=== PATIENT | male | born 1945 | race Caucasian/White ===

== ENCOUNTER 2017-09-14 21:48 | Emergency (ER) | payer MEDICARE, OTHER, SELFPAY ==
[2017-09-14 21:49] VITALS: BP 129/91; PULSE 72; RESP 15; TEMP 36.6; BMI 38.7
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
[2017-09-14 23:05] VITALS: BP 141/84; PULSE 71; RESP 18; O2SAT 95
== END 2017-09-14 23:05 | disposition home or self-care (01) ==
PROVIDERS: Emergency Provider Emergency Medicine; Family Provider Family Medicine; PCP Family Medicine
DX: S63.501A Unspecified sprain of right wrist, initial encounter (principal); V49.40XA Driver injured in collision with unspecified motor vehicles in traffic accident, initial encounter; Y93.9 Activity, unspecified; Y92.411 Interstate highway as the place of occurrence of the external cause; Y99.9 Unspecified external cause status; E11.9 Type 2 diabetes mellitus without complications; I10 Essential (primary) hypertension; Z79.84 Long term (current) use of oral hypoglycemic drugs; Z79.899 Other long term (current) drug therapy; Z87.891 Personal history of nicotine dependence
CPT/HCPCS: 73110; 99282

== ENCOUNTER 2018-07-21 18:45 | Emergency (ER) | payer MEDICARE, SELFPAY ==
[2018-07-21 18:46] VITALS: BP 135/71; PULSE 75; RESP 16; TEMP 36.7; BMI 37.6
--- NOTE | 2018-07-21 19:12 | RAD_ITS ---
STUDY: X-RAY - LEFT TIBIA AND FIBULA REASON FOR EXAM: Male, 73 years old. Pain and swelling TECHNIQUE: 2 view(s) of the tibia and fibula were obtained. COMPARISON: None. FINDINGS: There is no evidence of fracture or dislocation. There are no significant degenerative changes. There are no radiodense foreign bodies. RAD/Tibia & Fibula 2 Views IMPRESSION: No fracture or dislocation. Electronically Signed: Joseph Mansfield, at 20:23 EDT Tel , Service support ,
--- NOTE | 2018-07-21 19:13 | RAD_ITS ---
STUDY: X-RAY - LEFT KNEE REASON FOR EXAM: Male, 73 years old. Leg pain TECHNIQUE: 4 view(s) of the knee. COMPARISON: None. FINDINGS: There is no evidence of fracture or dislocation. There are no significant degenerative changes. There are no radiodense foreign bodies. There is a small joint effusion. RAD/Knee 4 or More Views IMPRESSION: No fracture or dislocation. Small joint effusion. Electronically Signed: Joseph Mansfield, at 20:19 EDT Tel , Service support ,
--- NOTE | 2018-07-21 19:20 | US_ITS ---
STUDY: VENOUS DOPPLER ULTRASOUND - LEFT LOWER EXTREMITY REASON FOR EXAM: Male, 73 years old. Pain TECHNIQUE: Ultrasound evaluation of the deep vein system to include whitmore-scale imaging and compression was performed. Whitmore-scale imaging and Doppler sonographic evaluation, including duplex spectral analysis and qualitative color flow sonography, was performed. COMPARISON: None. FINDINGS: Common Femoral Vein: Normal compression, spontaneity and augmentation. Normal color Doppler. Common Femoral Vein/Greater Saphenous Junction: Normal compression, spontaneity and augmentation. Normal color Doppler. Femoral Proximal: Normal compression, spontaneity and augmentation. Normal color Doppler. Femoral Middle: Normal compression, spontaneity and augmentation. Normal color Doppler. Femoral Distal: Normal compression, spontaneity and augmentation. Normal color Doppler. Popliteal Vein: Normal compression, spontaneity and augmentation. Normal color Doppler. Posterior Tibial Vein: Normal compression, spontaneity and augmentation. Normal color Doppler. Peroneal Vein: Normal compression, spontaneity and augmentation. Normal color Doppler. US/Venous Duplex Imag/Limited/Uni IMPRESSION: Normal venous Doppler ultrasound of the left lower extremity. Electronically Signed: Joseph Mansfield, at 20:46 EDT Tel , Service support ,
[2018-07-21] MEDS: oxyCODONE 5 MG Tablet PO ×2 (19:40→21:17)
--- NOTE | 2018-07-21 21:29 | ED.VISSUMM ---
- ER Visit Summary Date of Service: 07/21/18 Chief Complaint: Left knee pain History of Present Illness: The patient is a 73 M with a 4-6-week history of left knee pain. He was seen by his primary care physician and x-rays showed arthritis. He has been in physical therapy. He states that while in physical therapy immediately after it seems to feel better, but still stiffens up and he has difficulty walking. He was going up some steps today and felt a pop in the lateral portion of his knee. He now states he is unable to bear weight. He is taking Motrin at home for pain. Past history significant for diabetes with neuropathy. He also has hypertension, high cholesterol, and reflux disease. He had surgery for spinal stenosis several years ago. Physical Examination: Vital signs are unremarkable. Patient sitting upright in bed no acute distress. Head neck examination unremarkable. Heart is regular rate and rhythm. Lung sounds clear. Abdomen is soft nontender. Left lower extremity examination was mild tenderness in the proximal portion of the left fibula and the distal tib-fib. He has mild left leg edema diffusely. He has strong distal pulses. He is able to straight leg raise his foot off the bed. Test Results: Left knee and left tib-fib x-rays are obtained that show no evidence of fracture or dislocation. There is a small joint effusion noted at the knee. Venous ultrasound of the leg shows no DVT. Emergency Department Course and Treatment: Patient is treated with oxycodone for pain. Patient is able to get up and ambulate with a walker. I will touch base with on-call coverage for his primary care physician. Patient is scheduled to see the nurse practitioner tomorrow morning. Treatment Plan: [] Disposition: Discharge Impression: Left leg pain This note was generated with [employer] dictation software. It may contain incorrect words, spelling, and punctuation that were not noted in review of the chart prior to signing ED Disposition - Plan for ED Patient: Referrals: Yosef Rodas MD [Primary Care Provider] -
--- NOTE | 2018-07-21 22:17 | ED.DEP ---
ED Disposition - Plan for ED Patient: Disposition: Home or Assisted Living Instructions: ED Knee Pain [facility] Prescriptions: Oxycodone [Oxyir] 5 mg PO Q6H PRN PRN 3 Days #10 tablet PRN Reason: Pain Referrals: Yosef Rodas MD [Primary Care Provider] - Keep [facility] appointment
--- NOTE | 2018-07-21 22:26 | ED.DEP ---
ED Disposition - Plan for ED Patient: Disposition: Home or Assisted Living Instructions: ED Knee Pain [facility] Prescriptions: Oxycodone [Oxyir] 5 mg PO Q6H PRN PRN 3 Days #10 tablet PRN Reason: Pain Walker [Ultra-Light Rollator] 1 each MC DAILY #1 each Referrals: Yosef Rodas MD [Primary Care Provider] - Keep [facility] appointment
[2018-07-21 22:44] VITALS: PULSE 76; RESP 18; O2SAT 92
== END 2018-07-21 22:45 | disposition home or self-care (01) ==
PROVIDERS: Emergency Provider Emergency Medicine; Family Provider Family Medicine; PCP Family Medicine
DX: M79.605 Pain in left leg (principal); R26.2 Difficulty in walking, not elsewhere classified; E11.40 Type 2 diabetes mellitus with diabetic neuropathy, unspecified; I10 Essential (primary) hypertension; E78.00 Pure hypercholesterolemia, unspecified; K21.9 Gastro-esophageal reflux disease without esophagitis; Z79.84 Long term (current) use of oral hypoglycemic drugs; Z79.82 Long term (current) use of aspirin; Z79.899 Other long term (current) drug therapy; Z87.891 Personal history of nicotine dependence
CPT/HCPCS: 73564; 73590; 93971; 99282

== ENCOUNTER → 2018-08-16 08:42 | Outpatient (CLI) | payer MEDICARE, SELFPAY ==
[2018-07-30 15:28] VITALS: BMI 37.6
--- NOTE | 2018-08-16 08:45 | MRI_ITS ---
STUDY: MRI LEFT KNEE REASON FOR EXAM: Male, 73 years old. Left knee pain TECHNIQUE: Standardized fat and water weighted pulse sequences were obtained in all 3 orthogonal planes. COMPARISON: X-ray July 21, 2018. FINDINGS: There is medial meniscus tear of the posterior horn adjacent to the meniscal root, series 6 image 03/21. There is diffuse, less than 50% thickness articular cartilage loss of the medial femorotibial compartment. Normal medial femoral condyle and tibial plateau. Normal medial collateral ligamentous complex (MCL). Normal distal semimembranosus, gracilis and semitendinosus tendons. Normal lateral meniscus. Normal hyaline cartilage of the lateral femorotibial compartment. Normal lateral femoral condyle and tibial plateau. Normal proximal tibiofibular articulation. Normal lateral collateral (fibular) ligament. Normal popliteus tendon. Normal biceps femoris tendon. Normal anterior cruciate ligament (ACL). Normal posterior cruciate ligament (PCL). Normal congruent patellofemoral articulation. There is diffuse, less than 50% thickness articular cartilage loss of the patellofemoral compartment. Normal medial and lateral patellar retinaculum. Normal quadriceps tendon. Normal patellar tendon. Normal Hoffa's fat pad. There is a moderate volume joint effusion. The soft tissues are unremarkable. The otherwise visualized osseous structures are unremarkable. MRI/Lower Ext Joint Only (Routine) IMPRESSION: Medial meniscus tear. Joint effusion. Electronically Signed: Tommy Vega MD at 9:18 EDT , Service support ,
== END ==
PROVIDERS: Family Provider Family Medicine; PCP Family Medicine; Referring Provider Orthopaedic Surgery; Visit Provider Orthopaedic Surgery
DX: M25.562 Pain in left knee (principal)
CPT/HCPCS: 73721

== ENCOUNTER 2018-09-02 07:51 | Day surgery (SDC) | payer MEDICARE, SELFPAY ==
--- NOTE | 2018-08-20 02:00 | HP_ITS ---
Intake Vital Signs 08/20/18 Body Mass Index (BMI) 37.6 Intake Visit Reasons: LEFT KNEE Allergies lisinopril Allergy (Verified 09/14/17 21:53) Shortness of breath Penicillins [PCN] Allergy (Verified 09/14/17 21:53) Unknown Medications Gabapentin [Neurontin] 1,200 mg PO TID 09/14/17 [History Confirmed 07/21/18] Gabapentin [Neurontin] 100 mg PO TID 09/14/17 [History Confirmed 07/21/18] Hydrochlorothiazide [Hctz] 25 mg PO DAILY 09/14/17 [History Confirmed 07/21/18] Losartan Potassium 50 mg PO DAILY 09/14/17 [History Confirmed 07/21/18] Metformin HCl [Glucophage] 1,000 mg PO BID 09/14/17 [History Confirmed 07/21/18] Oxybutynin [Ditropan] 5 mg PO DAILY 09/14/17 [History Confirmed 07/21/18] Ranitidine [Zantac] 150 mg PO DAILY 09/14/17 [History Confirmed 07/21/18] Simvastatin [Zocor] 10 mg PO QHS 09/14/17 [History Confirmed 07/21/18] Aspirin [Aspirin, Baby] 81 mg PO DAILY 07/21/18 [History Confirmed 07/21/18] Cyanocobalamin (Vitamin B-12) [B-12] 1,000 mcg PO DAILY 07/21/18 [History Confirmed 07/21/18] Walker [Ultra-Light Rollator] 1 ea MC DAILY #1 ea 07/21/18 [Rx] PFSH Medical History Neuropathy (Acute) Diabetes mellitus (Chronic) HTN (hypertension) (Chronic) Social History Smoking Status: Former smoker HPI LEFT KNEE : Surgical H&P: Yes Details: Parts of this documentation were recorded by a scribe, this documentation accurately reflects the service provided and the decisions made by , Bharath Hines DO 08/20/18 0805. ESSIE LOCK is a 73 year old M here today for left knee injury that occurred 2 weeks ago while getting in a car. Patient here today for F/U after MRI. his symptoms have not changed. Ortho Exam Left Knee Skin/Wound: No ecchymosis, No erythema, Yes swelling Homans Sign: No KNEE: Skin/Wound: No ecchymosis, No erythema, Yes swelling Homans Sign: No 3+: Effusion Knee ROM: No ROM-Extension -20 to 0 (lacking 3), No ROM-Flexion 0-140 (105) Examination: Yes med jt line tenderness, Yes Lat jt line tenderness (posterior/lateral), Yes Mohit's Test Stability: NML: Anterior Drawer, NML: Posterior Drawer, NML: Valgus 30, NML: Varus 30 Patella Translation: 1 Apprehension with Lateral Translation: No Patella Grind: Yes KNEE: BL lower extremity edema worse on left Supplemental Info 08/16/2018 MRI left knee: Posterior horn and root medial meniscus tear cartilage wear medial compartment and patellofemoral Assessment & Plan Problems 1. Complex tear of medial meniscus of left knee as current injury, subsequent encounter S89.390W 2. Primary osteoarthritis of left knee M17.12 Plan Reviewed patient left knee MRI. Educated the he has a medial meniscus tear and does have some moderate OA. Recommendation is to have an arthroscopy to remove the meniscus that is torn. Patient made aware that this surgery may cause a flare up of his OA. Reviewed the pre-operative plans with the patient. Risks and benefits of the procedure were fully explained, including but not limited to infection, neurovascular injury, continued pain, arthritis, stiffness, need for further surgery, re-injury, DVT, PE, general risks of anesthesia, and loss of limb or life. The patient understands all the risks. Patient educated that the risk of arthritis happening after the procedure rises. Patient made aware that the recovery may take 6 weeks or longer. Patient may ambulate on his knee immediately. Patient instructed that he may ride a bike but will have to refrain from ambulating on uneven ground for 6 weeks post-op. Educated that diabetes may increase risk of infection which is a low risk. Instructed to take Aspirin 81mg BID for 2 weeks post-op to decrease risk of blood clots. Patient wishes to proceed with surgery. Follow up 2 weeks post-op or sooner if pain, swelling, numbness or associated symptoms, or concerns develop. All questions answered. Patient in agreement of plan. Coding Level of Care Code Off vis,est,level 3 Diagnoses Complex tear of medial meniscus of left knee as current injury, subsequent encounter S82.325M ??Tear current or old: current ??Encounter type: subsequent encounter ??Meniscus tear of knee type: complex Primary osteoarthritis of left knee M17.12 ??Osteoarthritis type: primary ??Laterality: left 08/20/18 1522 <Electronically signed by Bharath Hines DO> Date Bharath Hines DO
[2018-08-20 08:05] VITALS: BMI 37.6
[2018-09-02] VITALS (8 sets, daily range): BP systolic 116–127; BP diastolic 60–90; PULSE 66–79; RESP 16–18; TEMP 36.2–36.9; O2SAT 92–93; BMI 38.9
[2018-09-02 09:01] LABS: Bedside Glucose 130 mg/dL (70-110)
[2018-09-02] MEDS: Cefazolin 2 GM in 0.9% Normal Saline 100 ML IV (10:40)
[2018-09-02] MEDS: Bupiv/Epi 0.5% Mpf 30 ML Vial (11:15)
[2018-09-02] MEDS: Morphine 4 MG/ML Syringe (11:30)
[2018-09-02] MEDS: Bupivacaine 0.5% PF 10 ML VIAL (11:30)
[2018-09-02] MEDS: MethylPREDNISolone Acetate 80 MG/ML Vial (11:30)
--- NOTE | 2018-09-02 11:50 | DCINST_ITS ---
Additional Activity Instructions:: Ice and elevate next 72 hours .keep dressing on clean and dry for 48 hours then may remove begin showering daily but do not submerge in tub or pool. After shower may apply Band-Aids . Encourage knee range of motion weightbearing as tolerated, use walker until confident in knee then may discontinue. No strenuous activity. When not ambulating keep iced and elevated next 72 hours. Allergies/Adverse Reactions: Allergies lisinopril Allergy (Verified 09/14/17 21:53) Shortness of breath Penicillins [PCN] Allergy (Verified 09/14/17 21:53) Unknown Medications to take at Discharge Gabapentin [Neurontin] 100 mg PO TID 09/14/17 Gabapentin [Neurontin] 800 mg PO TID 09/14/17 Hydrochlorothiazide [Hctz] 25 mg PO DAILY 09/14/17 Losartan Potassium 50 mg PO DAILY 09/14/17 Metformin HCl [Glucophage] 1,000 mg PO BID 09/14/17 Oxybutynin [Ditropan] 5 mg PO DAILY 09/14/17 Ranitidine [Zantac] 150 mg PO DAILY 09/14/17 Simvastatin [Zocor] 10 mg PO QHS 09/14/17 Cyanocobalamin (Vitamin B-12) [B-12] 1,000 mcg PO DAILY 07/21/18 Walker [Ultra-Light Rollator] 1 each MC DAILY #1 each 07/21/18 Aspirin [Aspirin, Baby] 81 mg PO DAILY #0 09/02/18 Hydrocodone Bitart/Apap 5-325 [[place] 5MG-325MG] 1 - 2 tablet PO Q4H PRN PRN 5 Days #50 tablet 09/02/18 The following prescriptions were given: Hydrocodone Bitart/Apap 5-325 [[place] 5MG-325MG] 1 - 2 tablet PO Q4H PRN PRN 5 Days #50 tablet PRN Reason: Pain Primary Care Physician: Yosef Rodas MD [Primary Care Provider] - Test Results: Test results from this visit will be discussed in further detail at your follow- up appointment, if applicable.
--- NOTE | 2018-09-02 11:57 | OP.PCM_ITS ---
Report of Operation Date of Procedure: 09/02/18 Description of Surgical Findings:: Preop diagnosis: Left knee medial meniscus tear DJD Postoperative diagnosis: Posterior horn medial meniscus tear small radial tearing of lateral meniscal body grade III chondromalacia medial femoral condyle medial tibial plateau and patella loose body Procedure: Arthroscopic left knee partial medial meniscectomy arthroplasty medial femoral condyle loose body removal partial lateral meniscectomy Anesthesia: General Estimated blood loss: 5 mL Tourniquet time: minutes 300 mmHg Complications: none Indication for procedure: This is a 73-year-old male patient with ongoing knee pain mechanical symptoms who did have MRI evidence of meniscal tear and DJD the patient did wish to proceed with an elective arthroscopic surgery to attempt to alleviate the symptoms. Risk benefits and alternatives of the procedure were reviewed including risk of bleeding infection nerve artery tissue damage need for further surgery continued pain and expected postoperative course. Procedure: The patient was met in the preoperative holding area. The operative extremity was identified by both patient and physician and family and marked. Patient was brought back to the operating room on a wheeled cart and transferred to the operating table in the supine position. Anesthesia was started. A well- padded tourniquet was placed on the operative extremity. A lower extremity leg lambert was secured to the operative extremity. The contralateral extremity was well-padded and the end of the bed was flexed to 90 degrees. The patient was prepped and draped in the usual sterile fashion. A timeout was called to ensure the proper patient, procedure, and extremity were being contemplated. 0.5% Marcaine with epinephrine was injected into the planned incisional areas under the skin only. An Esmarch was used to exsanguinate the extremity and the tourniquet was inflated. An 11 blade scalpel was used to make a stab incision in the anterior lateral portal. The arthroscope was inserted into the intercondylar notch and inflow and outflow tubes were attached. Arthroscopic visualization began. The medial compartment was entered. An 18-gauge spinal needle was used to establish the placement for anterior medial portal. An 11 blade scalpel was used to make a stab incision. Blunt probe was inserted followed by a meniscal probe. There was noted to be a posterior horn medial meniscus tear with the use of shaver and arthroscopic biting instruments partial medial meniscectomy was performed also loose cartilage of the medial femoral condyle which was debrided and gentle chondroplasty was performed there was greater than 50% cartilage wear throughout most of the medial compartment but no full-thickness loss the ACL was found to be intact. The lateral compartment was entered there was some radial tearing of the body of the lateral meniscus which was debrided with a shaver but overall the cartilage was intact . The arthroscope was switched to the medial portal to complete the procedure. The medial and lateral gutters were inspected and was loose bodies mostly from cartilage debris which were removed. 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 There was good patellar tracking. The knee was thoroughly irrigated and drained. An intra-articular injection with 5 cc 0.5% Marcaine plain 4 mg of morphine and 40 mg of Depo- Medrol was injected intra-articularly. The arthroscope was removed the portals were closed with 3-0 nylon arthroscopic stitches. Followed by Xeroform 4 x 4's ABDs web roll and an Andi wrap. The tourniquet was let down and the drapes were removed. All counts were correct. The patient was brought back to the PACU in stable condition.
[2018-09-02 12:05] LABS: Bedside Glucose 118 mg/dL (70-110)
== END 2018-09-02 13:45 | disposition home or self-care (01) ==
LOC: SDC 08:08 → AC 08:09
PROVIDERS: Family Provider Family Medicine; PCP Family Medicine; Referring Provider Orthopaedic Surgery; Visit Provider Orthopaedic Surgery
PROC: (CPT 29870; principal; 2018-09-02 09:15)
DX: S83.232A Complex tear of medial meniscus, current injury, left knee, initial encounter (principal); S83.282A Other tear of lateral meniscus, current injury, left knee, initial encounter; X58.XXXA Exposure to other specified factors, initial encounter; Y93.9 Activity, unspecified; Y92.9 Unspecified place or not applicable; Y99.9 Unspecified external cause status; M17.12 Unilateral primary osteoarthritis, left knee; E11.40 Type 2 diabetes mellitus with diabetic neuropathy, unspecified; E78.00 Pure hypercholesterolemia, unspecified; I10 Essential (primary) hypertension; K22.2 Esophageal obstruction; Z79.82 Long term (current) use of aspirin; Z79.84 Long term (current) use of oral hypoglycemic drugs; Z79.899 Other long term (current) drug therapy; Z88.8 Allergy status to other drugs, medicaments and biological substances; Z88.0 Allergy status to penicillin; Z87.891 Personal history of nicotine dependence
CPT/HCPCS: 01400; 29880; 82962; J7120; J2405

== ENCOUNTER 2023-04-10 10:53 | Inpatient (IN) | payer MEDICARE, SELFPAY ==
[2023-04-10] VITALS (14 sets, daily range): BP systolic 104–178; BP diastolic 68–98; PULSE 62–98; RESP 14–20; TEMP 36.6–36.7; O2SAT 93–98; BMI 34.4; BMI 36.3; BMI 35.3
--- NOTE | 2023-04-10 11:02 | ED.RN ---
SPOKE WITH DR. STUART REGARDING THIS PT, DR STUART WILL ASSESS.
--- NOTE | 2023-04-10 11:10 | NURSING ---
STROKE ALERT CALLED
--- NOTE | 2023-04-10 11:15 | CT_ITS ---
STUDY: CTA HEAD AND NECK WITH CONTRAST REASON FOR EXAM: Male, 77 years old. Neuro deficit, acute, stroke suspected RADIATION DOSAGE (If Supplied By Facility): CTDIvol = ( 20.41 ) mGy, DLP = ( 763.15 ) mGycm TECHNIQUE: CT angiography was performed with a multi-detector CT scanner. Data acquisition was obtained from the skull base through the vertex following intravenous administration of [id number] 100ML. MIP images were reconstructed from the axial data set. Post-processing of the angiographic images was performed, with multiplanar reformation and 3D reconstruction. Individualized dose optimization techniques were used for this CT. COMPARISON: No relevant priors. FINDINGS: Normal bilateral petrous carotid arteries. Normal right cavernous carotid artery with a normal supraclinoid bifurcation. Normal left cavernous carotid artery with a normal supraclinoid bifurcation. Normal right A1 segments of the anterior cerebral artery. Normal left A1 segments of the anterior cerebral artery. Normal intact anterior communicating artery (ACOM). Normal bilateral A2 segments of the anterior cerebral arteries. Normal right M1 and M2 segments of the middle cerebral arteries, with a normal M1 bifurcation. Normal left M1 and M2 segments of the middle cerebral arteries, with a normal M1 bifurcation. Normal right posterior communicating artery (PCOM). Normal left posterior communicating artery (PCOM). Normal bilateral vertebral arteries. Normal basilar artery with a normal basilar bifurcation. The visualized bilateral superior cerebellar (SCA) arteries are normal. Normal bilateral P1, P2 and visualized P3 segments of the posterior cerebral arteries. There is no demonstrated aneurysm of the [place] of [place]. AORTIC ARCH: There is atherosclerotic calcific plaque formation of the aortic arch and great vessels arising from the aortic arch, without a hemodynamically significant stenosis. There is a normal origin of the brachiocephalic, left common carotid, and left subclavian arteries. Normal origins of the brachiocephalic, left common carotid, and left subclavian arteries. RIGHT CAROTID ARTERIES: Normal right common carotid artery (CCA). Normal right common carotid bulb. Normal origin of the right internal carotid (ICA) artery without a hemodynamically significant stenosis. Normal visualized cervical portion of the right internal carotid artery. Normal origin of the right external carotid artery (ECA). LEFT CAROTID ARTERIES: Normal left common carotid artery (CCA). Normal left common carotid bulb. Normal origin of the left internal carotid (ICA) artery without a hemodynamically significant stenosis. Normal visualized cervical portion of the left internal carotid artery. Normal origin of the left external carotid artery (ECA). VERTEBRAL ARTERIES: Normal bilateral vertebral arteries. CT/STROKE CTA Head AND Neck W/Con IMPRESSION: Normal CTA Head and neck with contrast. N.B. : The above Results were Read Back by Babar Oliva MD to Dr Cesario DO, and understanding confirmed on 04/10/2023 11:59:14 (ET). Electronically Signed: Babar Oliva MD at 12:00 EST ,
--- NOTE | 2023-04-10 11:15 | CT_ITS ---
STUDY: CT HEAD STROKE PROTOCOL W/O CONTRAST INJECTION REASON FOR EXAM: Male, 77 years old. Neuro deficit, acute, stroke suspected RADIATION DOSAGE (If Supplied By Facility): CTDIvol = ( 44.99 ) mGy, DLP = ( 863.6 ) mGycm TECHNIQUE: Transaxial CT imaging of the brain was performed without administration of intravenous contrast material. Individualized dose optimization techniques were used for this CT. COMPARISON: No relevant priors. FINDINGS: Normal soft tissue structures. Normal calvarium. There is mild cerebral atrophy with widening of the extra-axial spaces and ventricular dilatation. There are areas of decreased attenuation within the white matter tracts of the supratentorial brain, consistent with microvascular disease changes. Normal basal ganglia and thalami. Normal brainstem. Normal cerebellum. There is no intracranial hemorrhage. There are no findings of an acute ischemic infarction. Normal visualized paranasal sinuses. ASPECT score: 10 CT/STROKE Brain/Head without Cont IMPRESSION: Chronic involutional changes of the brain. N.B. : The above Results were Read Back by Babar Oliva MD to Dr Cesario DO, and understanding confirmed on 04/10/2023 11:29:33 (ET). Electronically Signed: Babar Oliva MD at 11:30 EST ,
--- NOTE | 2023-04-10 11:15 | EKG12_ITS ---
Test Reason : STROKE Blood Pressure : / mmHG Vent. Rate : 065 BPM Atrial Rate : 065 BPM P-R Int : 200 ms QRS Dur : 072 ms QT Int : 414 ms P-R-T Axes : 074 -02 035 degrees QTc Int : 430 ms Normal sinus rhythm Normal ECG Confirmed by TIN FERRER, CURTIS ([id number]), assistant production editor TONYA MONTENEGRO ([id number]) on 04/11/2023 10:41:32 AM Referred By: Confirmed By:CURTIS CASTLE MD
[2023-04-10 11:30] LABS: Bedside Glucose 99 mg/dL (74-106)
[2023-04-10 11:33] LABS: Absolute Lymphocyte Count 1.58 X10^3/uL (0.83-4.51); Basophil# 0.03 X10^3/uL; Basophil% 0.4 % (0-1); Eosinophil# 0.49 X10^3/uL; Eosinophils% 6.5 % (0-5); Hematocrit 39.1 % (40-54); Lymphocyte # 1.58 X10^3/ul (0.83-4.51); Lymphocyte % 20.9 % (19-41); Mean Corp Hgb Conc 30.7 g/dL (32-36); Mean Corpuscular Hgb 29.1 pg (27.0-32.0); Mean Corpuscular Volume 94.9 fL (80-94); Mean Platelet Vol. 9.9 fl (6.2-12.0); Monocyte# 0.47 X10^3/uL; Monocyte% 6.2 % (0-10); NRBC Flagged by Analyzer 0 % (0-5); Neutrophil # 4.96 X10^3/uL (2.7-7.7); Neutrophil % 65.6 % (47-70); Platelet Count 239 K/mm3 (150-450); RBC Distribution Width CV 14.3 % (11.6-14.6); RBC Distribution Width SD 49.5 fl (35.1-43.9); Red Blood Count 4.12 M/mm3 (4.6-6.2); White Blood Count 7.6 K/mm3 (4.4-11.0)
[2023-04-10 11:36] LABS: Prothrombin Time (Protime)PT. 13.5 SECONDS (11.7-14.9)
[2023-04-10 11:45] LABS: Anion Gap 3 (5-15); BUN 36 mg/dL (7-18); BUN/Creat Ratio 25.2 RATIO (10-20); Calcium,Total 9.2 mg/dL (8.5-10.1); Chloride 109 mmol/L (98-107); Creatinine, Serum 1.43 mg/dL (0.70-1.30); EST Glomerular Filtration Rate 51 mL/min (>60); Est Glom Filt Rate - Afr Amer 62 mL/min (>60); Estimated Creatinine Clearance 40.45 ml/min; Glucose 107 mg/dL (74-106); Potassium 4.7 mmol/L (3.5-5.1); Sodium Level 141 mmol/L (136-145); Troponin-I HS 5 pg/mL (3.0-78.0)
--- NOTE | 2023-04-10 11:52 | CHAPLAIN ---
Type of Pastoral Visit ___ Initial Visit ___ Follow-up Visit ___ On-call Visit ___ General Patient Visit ___ Spiritual Assessment ___ Family Conference ___ Bereavement _x__ Rapid Response ___ Code Blue ___ Other (describe below) Pastoral Care Referral From ___ Patient ___ Family ___ Nurse ___ Physician ___ On Air Host ___ Restaurant Inspector _x__ Other (describe below) Sacrament/Intervention _x__ Active listening ___ Anointing ___ Restorationist ___ Bereavement ___ Communion ___ Edita exploration ___ ___ Life review ___ Prayer ___ Reconciliation ___ Sacrament of Sick _x__ Supportive presence ___ Wedding ___ Other (describe below) Pastoral Comments responded to stroke alert; pt is being attended by medical team and prepared for CT; pt is alert and oriented; offer of support and presence to patient and spouse; spouse indicates that she is doing fine; no current needs
--- NOTE | 2023-04-10 12:00 | RAD_ITS ---
STUDY: X-RAY CHEST REASON FOR EXAM: Male, 77 years old. Neuro deficit, acute, stroke suspected TECHNIQUE: Single AP portable view of the chest. COMPARISON: None. FINDINGS: EKG electrodes are seen. The lungs are clear and expanded. Calcified granulomas. There is no demonstrated pleural abnormality. Normal size heart. Normal mediastinum and nicky. Normal visualized pulmonary arteries. Normal visualized aortic arch and descending thoracic aorta. There are diffuse degenerative changes of the visualized thoracic spine. Normal visualized ribs, clavicles, and shoulders. There is no demonstrated abnormality of the visualized soft tissue structures of the upper abdomen. RAD/Chest 1 View IMPRESSION: Normal x-ray examination of the chest. Electronically Signed: Babar Oliva MD at 12:24 EST ,
--- NOTE | 2023-04-10 12:11 | ED.RN ---
SLIGHT DYSARTHRIA NOTED, IMPROVED WITH REINSERTION OF DENTURES. PT LEFT LEG WEAKER THAN RIGHT, NO ACTUAL SIGNIFICANT DRIFT OBSERVED. PT HAS DIFFICULTY LIFTING BOTH LEGS DUE TO SPINAL SURGERY IN JUNE 2022
--- NOTE | 2023-04-10 12:16 | EX.ED.DYSGE1 ---
HPI History of Present Illness Chief Complaint: Neuro S/Sx Informant: patient and spouse/S.O. Narrative Narrative: 77-year-old male states that at 2200 hrs. last night he went to get out of his chair. He felt both of his legs were weak. He was able to ambulate with some assistance and a walker to the bedroom. He states that during the night he had difficulty trying to get a bottle of water with his left hand. He states he kept missing it and the hand was weak. This morning he noted that the left leg was weak not the right leg. He also states that when he went to feel the left side of his face he missed his face and hit his head with his left hand. He then noticed that the left side of his face was not feeling the same as the right side. Now he notes some left-sided facial droop. Patient takes a baby aspirin. He is a diabetic with a history of hypercholesterolemia hypertension and GERD. [facility] Medical History Diabetes mellitus GERD (gastroesophageal reflux disease) HTN (hypertension) Hyperlipidemia Neuropathy Sleep apnea Home Medications gabapentin 100 mg capsule 100 mg PO TID NERVE PAIN 09/14/17 [History Last Taken 04/10/23] gabapentin 400 mg capsule 800 mg PO TID NERVE PAIN 09/14/17 [History Last Taken 04/10/23] losartan 50 mg tablet 50 mg PO DAILY BLOOD PRESSURE 09/14/17 [History Last Taken 04/10/23] metformin 1,000 mg tablet 1,000 mg PO BID DIABETES 09/14/17 [History Last Taken 04/10/23] simvastatin 10 mg tablet 10 mg PO QHS CHOLESTEROL 09/14/17 [History Last Taken 04/09/23] cyanocobalamin (vitamin B-12) 1,000 mcg tablet 1,000 mcg PO DAILY SUPPLEMENT 07/21/18 [History Last Taken 04/10/23] walker #1 ea 07/21/18 [Rx Last Taken Unknown] ascorbic acid (vitamin C) 1,000 mg tablet 1 g PO DAILY SUPPLEMENT 04/10/23 [History Last Taken 04/10/23] aspirin 81 mg chewable tablet 81 mg PO DAILY HEART HEALTH 04/10/23 [History Last Taken 04/10/23] diclofenac sodium 75 mg tablet,delayed release 75 mg PO BID ANTI-INFLAMMATORY 04/10/23 [History Last Taken 04/10/23] omeprazole 40 mg capsule,delayed release 40 mg PO DAILY ACID REFLUX 04/10/23 [History Last Taken 04/10/23] oxybutynin chloride 10 mg tablet,extended release 24 hr 10 mg PO DAILY OVERACTIVE BLADDER 04/10/23 [History Last Taken 04/10/23] Allergy/AdvReac Type Severity Reaction Status Date / Time lisinopril Allergy Shortness Verified 10/20/18 10:45 of breath Penicillins [PCN] Allergy Unknown Verified 10/20/18 10:45 Social History Smoking Status: Former smoker ROS ROS ED Constitutional Constitutional ED: Denies chills, fever(s) or weight loss Eyes Eyes: Denies change in vision or diplopia ENT ENT ED: Denies ear pain, rhinorrhea or sore throat Cardiovascular Cardiovascular: Denies chest pain, orthopnea, palpitations or racing heartbeat Respiratory/Chest Respiratory/Chest: Denies cough, dyspnea or orthopnea Gastrointestinal Gastrointestinal: Denies abdominal pain, diarrhea, nausea or vomiting Genitourinary Genitourinary ED: Denies dysuria, hematuria or urinary frequency Musculoskeletal Musculoskeletal: Reports back pain; Denies arthralgias or myalgias Integumentary Denies abscess or rash Neurologic Neurologic: Reports paresthesias and weakness; Denies headache(s) Psychiatric Psychiatric: Denies anxiety, depression, suicidal ideation or suicidal thoughts Endocrine Endocrinology: Denies polydipsia, polyphagia or polyuria Allergic/Immunologic Allergic/Immunologic ED: Denies mouth swelling, tongue swelling or urticaria EXAM Physical Exam Const Vital Signs: 04/10/23 10:56 04/10/23 11:11 04/10/23 11:30 Temperature 98.1 F 98.1 F Temperature Source Temporal Temporal Pulse Rate 98 77 67 Respiratory Rate 14 17 15 Blood Pressure 154/75 H 168/83 H 178/71 H Blood Pressure Mean 101 111 106 Pulse Ox 98 95 96 Oxygen Delivery Method Room Air Room Air 04/10/23 12:00 Temperature Temperature Source Pulse Rate 64 Respiratory Rate 17 Blood Pressure 154/70 H Blood Pressure Mean 98 Pulse Ox 97 Oxygen Delivery Method Room Air Positive well nourished, well developed and obese General Appearance ED: well developed Nutritional Appearance: obese HEENT Reports normocephalic, head/scalp atraumatic and moist mucous membranes Eyes PERRL and EOMs intact bilaterally Neck no lymphadenopathy, supple and no JVD Resp normal respiratory effort and clear to auscultation bilaterally Cardio regular rate, regular rhythm and no murmurs GI normal to inspection, nondistended, normoactive bowel sounds and non-tender Palpation: soft Back/Spine no CVA tenderness and normal ROM Extremity normal to inspection General Extremety ED: Negative for edema General Extremity: Negative for edema Neuro oriented x3 and CN's II-XII intact bilaterally Neuro Narrative: NIH is +1 for left minor facial droop. 1 four decreased sensation left face/left arm = NIH 2. Sensorium / Orientation: alert Motor Exam: strength 5/5 throughout Psych mental status grossly normal Mood & Affect: Negative for depressed or tearful Skin no rashes or lesions noted and no wounds MDM MDM MDM Narrative Medical decision making narrative: History was not as clear but needed to be deeply elucidated out from the patient. After I got the history I did my exam recall the stroke team. He is not a tPA candidate. I do not see LVO on imaging. He was seen by [facility] neurology. Blood work shows a creatinine 1.43 and a glucose of 107. Normal troponin. Coags normal. Hemoglobin of 12 with a platelet count of 239 and white count of 7.6. My independent interpretation of the chest x-ray is no acute process. It does seem like his symptoms are waxing and waning/coming and going. However he persistently has this facial droop and altered sensation of the left face. History & Record Review Discussion w/independent historian: Patient and Family Additional record(s) reviewed:: Prior inpatient record, Prior outpatient record, Prior ED visit and Prior labs Lab Data Attestation: I reviewed the patient's lab results. Labs: Laboratory Results - last 24 hr 04/10/23 04/10/23 11:13 11:15 WBC 7.6 RBC 4.12 L Hgb 12.0 L Hct 39.1 L MCV 94.9 H MCH 29.1 MCHC 30.7 L RDW Std Deviation 49.5 H RDW Coeff of Isaura 14.3 Plt Count 239 MPV 9.9 Immature Gran % (Auto) 0.400 Neut % (Auto) 65.6 Lymph % (Auto) 20.9 [place] % (Auto) 6.2 Eos % (Auto) 6.5 H Baso % (Auto) 0.4 Absolute Neuts (auto) 5.0 Absolute Lymphs (auto) 1.58 Nucleated RBC % 0 PT 13.5 INR 1.0 APTT 25.0 Sodium 141 Potassium 4.7 Chloride 109 H Carbon Dioxide 29.0 Anion Gap 3 L BUN 36 H Creatinine 1.43 H Estim Creat Clear Calc 40.45 Est GFR (MDRD) Af Amer 62 Est GFR (MDRD) Non-Af 51 L BUN/Creatinine Ratio 25.2 H Glucose 107 H Calcium 9.2 Troponin I High Sens 5 POC Glucose 99 Radiography Diagnostic Testing: Clinical Impression(s) from Imaging Studies Brain CT 04/10/23 11:15 IMPRESSION: Chronic involutional changes of the brain. N.B. : The above Results were Read Back by Babar Oliva MD to Dr Cesario DO, and understanding confirmed on 04/10/2023 11:29:33 (ET). Electronically Signed: Babar Oliva MD at 11:30 EST , ADDENDUM: 04/10/23 1137 IMPRESSION: Chronic involutional changes of the brain. N.B. : The above Results were Read Back by Babar Oliva MD to Dr Cesario DO, and understanding confirmed on 04/10/2023 11:29:33 (ET). Electronically Signed: Babar Oliva MD at 11:30 EST , Head/Neck CTA 04/10/23 11:15 IMPRESSION: Normal CTA Head and neck with contrast. N.B. : The above Results were Read Back by Babar Oliva MD to Dr Cesario DO, and understanding confirmed on 04/10/2023 11:59:14 (ET). Electronically Signed: Babar Oliva MD at 12:00 EST , ADDENDUM: 04/10/23 1207 IMPRESSION: Normal CTA Head and neck with contrast. N.B. : The above Results were Read Back by Babar Oliva MD to Dr Cesario DO, and understanding confirmed on 04/10/2023 11:59:14 (ET). Electronically Signed: Babar Oliva MD at 12:00 EST , Chest X-Ray 04/10/23 12:00 IMPRESSION: Normal x-ray examination of the chest. Electronically Signed: Babar Oliva MD at 12:24 EST , Management Discussion w/another healthcare provider: Hospitalist and Other ([facility]) Discharge Plan Dx/Rx/DC Orders Clinical Impression: Stroke, Diabetes, Hypertension Disposition Disposition: Acute Care [facility]
--- NOTE | 2023-04-10 13:29 | HP.PCM.HOS_ITS ---
[facility] - General General Date of Service: 04/10/23 Chief Complaint: Left sided weakness HPI Narrative ESSIE LOCK, is a 77 M who presents with left-sided weakness. Patient noted that he was weak last night around 2200. Patient stated he was having difficulty grabbing a bottle with his left hand. Patient is right-hand dominant. Patient does have history of weakness and concern for possible issue regards to Parkinson's though has not been formally diagnosed but he is seeing a neurologist. Symptoms persisted and so he sent to the emergency room. CT of head head and neck were unremarkable. Patient was seen by [facility] recommended inpatient evaluation with further testing. Patient has never had a stroke before never any symptoms such as this in the past. [facility] Medical History Diabetes mellitus GERD (gastroesophageal reflux disease) HTN (hypertension) Hyperlipidemia Neuropathy Sleep apnea Home Medications gabapentin 100 mg capsule 100 mg PO TID NERVE PAIN 09/14/17 [History Last Taken 04/10/23] gabapentin 400 mg capsule 800 mg PO TID NERVE PAIN 09/14/17 [History Last Taken 04/10/23] losartan 50 mg tablet 50 mg PO DAILY BLOOD PRESSURE 09/14/17 [History Last Taken 04/10/23] metformin 1,000 mg tablet 1,000 mg PO BID DIABETES 09/14/17 [History Last Taken 04/10/23] simvastatin 10 mg tablet 10 mg PO QHS CHOLESTEROL 09/14/17 [History Last Taken 04/09/23] cyanocobalamin (vitamin B-12) 1,000 mcg tablet 1,000 mcg PO DAILY SUPPLEMENT 07/21/18 [History Last Taken 04/10/23] walker #1 ea 07/21/18 [Rx Last Taken Unknown] ascorbic acid (vitamin C) 1,000 mg tablet 1 g PO DAILY SUPPLEMENT 04/10/23 [History Last Taken 04/10/23] aspirin 81 mg chewable tablet 81 mg PO DAILY HEART HEALTH 04/10/23 [History Last Taken 04/10/23] diclofenac sodium 75 mg tablet,delayed release 75 mg PO BID ANTI-INFLAMMATORY 04/10/23 [History Last Taken 04/10/23] omeprazole 40 mg capsule,delayed release 40 mg PO DAILY ACID REFLUX 04/10/23 [History Last Taken 04/10/23] oxybutynin chloride 10 mg tablet,extended release 24 hr 10 mg PO DAILY OVERACTIVE BLADDER 04/10/23 [History Last Taken 04/10/23] Allergy/AdvReac Type Severity Reaction Status Date / Time lisinopril Allergy Shortness Verified 04/10/23 13:10 of breath Penicillins [PCN] Allergy Unknown Verified 04/10/23 13:10 Social History (Updated 04/10/23 @ 13:[address] Guilherme Herrera, DO) Smoking Status: Former smoker alcohol intake: current alcohol intake frequency: holidays/special occasions only Vital Signs Vital Signs Vital Signs: 04/10/23 10:56 04/10/23 11:11 04/10/23 11:30 Temperature 36.7 C 36.7 C Temperature Source Temporal Temporal Pulse Rate 98 77 67 Respiratory Rate 14 17 15 Blood Pressure 154/75 H 168/83 H 178/71 H Blood Pressure Mean 101 111 106 Pulse Ox 98 95 96 Oxygen Delivery Method Room Air Room Air 04/10/23 12:00 04/10/23 12:30 04/10/23 13:00 Temperature Temperature Source Pulse Rate 64 62 65 Respiratory Rate 17 17 16 Blood Pressure 154/70 H 147/85 H 164/84 H Blood Pressure Mean 98 105 110 Pulse Ox 97 96 95 Oxygen Delivery Method Room Air Room Air Room Air Weight Weight: 105.2 kg Body Mass Index (BMI) 36.3 Physical Exam Narrative - Physical Exam General: Alert, Oriented x3, Cooperative HEENT: Atraumatic, PERRLA, EOMI, Normocephalic. Mallampati stage IV Oral: Moist Mucosa, No Gingival or Mucosal Lesions/ Ulcerations Neck: Supple, No JVD, Negative Carotid Bruits Lungs: Clear to auscultation, Normal air movement Cardiovascular: Regular rate, Normal S1, Normal S2, No murmurs Abdomen: Bowel Sounds Present, Soft, Non Tender, Non-Distended, No Hepato- splenomegaly Extremities: No clubbing, No cyanosis, No edema, Capillary Refill Less than 3 Seconds Skin: No rashes, No breakdown Musculoskeletal: No Tenderness to Palpation of Joints or Extremities Neurological: Moves all extremities spontaneously. Muscle strength is 4-5 in the left upper and left lower extremity. Patient has ataxia of the left upper extremity. Patient also does have paresthesias involving his left face. Psych/Mental Status: Normal Affect, Appropriate Results Lab / Micro Data Attestation: I reviewed the patient's lab results. 04/10/23 11:15 04/10/23 11:15 Labs: Laboratory Results - last 24 hr 04/10/23 11:13: POC Glucose 99 04/10/23 11:15: WBC 7.6, RBC 4.12 L, Hgb 12.0 L, Hct 39.1 L, MCV 94.9 H, MCH 29.1, MCHC 30.7 L, RDW Std Deviation 49.5 H, RDW Coeff of Isaura 14.3, Plt Count 239, MPV 9.9, Immature Gran % (Auto) 0.400, Neut % (Auto) 65.6, Lymph % (Auto) 20.9, [place] % (Auto) 6.2, Eos % (Auto) 6.5 H, Baso % (Auto) 0.4, Absolute Neuts (auto) 5.0, Absolute Lymphs (auto) 1.58, Nucleated RBC % 0, PT 13.5, INR 1.0, APTT 25.0, Sodium 141, Potassium 4.7, Chloride 109 H, Carbon Dioxide 29.0, Anion Gap 3 L, BUN 36 H, Creatinine 1.43 H, Estim Creat Clear Calc 40.45, Est GFR (MDRD) Af Amer 62, Est GFR (MDRD) Non-Af 51 L, BUN/Creatinine Ratio 25.2 H, Glucose 107 H, Calcium 9.2, Troponin I High Sens 5 Imagaing Radiology Impression Brain CT 04/10/23 11:15 IMPRESSION: Chronic involutional changes of the brain. N.B. : The above Results were Read Back by Babar Oliva MD to Dr Cesario DO, and understanding confirmed on 04/10/2023 11:29:33 (ET). Electronically Signed: Babar Oliva MD at 11:30 EST , ADDENDUM: 04/10/23 4817 IMPRESSION: Chronic involutional changes of the brain. N.B. : The above Results were Read Back by Babar Oliva MD to Dr Cesario DO, and understanding confirmed on 04/10/2023 11:29:33 (ET). Electronically Signed: Babar Oliva MD at 11:30 EST Reading Location ID and State: [facility] / [place] , Service support , Head/Neck CTA 04/10/23 11:15 IMPRESSION: Normal CTA Head and neck with contrast. N.B. : The above Results were Read Back by Babar Oliva MD to Dr Cesario DO, and understanding confirmed on 04/10/2023 11:59:14 (ET). Electronically Signed: Babar Oliva MD at 12:00 EST Reading Location ID and State: [address] [place] [address] , Service support , ADDENDUM: 04/10/23 1207 IMPRESSION: Normal CTA Head and neck with contrast. N.B. : The above Results were Read Back by Babar Oliva MD to Dr Cesario DO, and understanding confirmed on 04/10/2023 11:59:14 (ET). Electronically Signed: Babar Oliva MD at 12:00 EST Reading Location ID and State: [address] [place] [address] , Service support , Chest X-Ray 04/10/23 12:00 IMPRESSION: Normal x-ray examination of the chest. Electronically Signed: Babar Oliva MD at 12:24 EST , Assessment & Plan Assessment/Plan (1) Stroke: QUALIFIERS: CVA mechanism: unspecified Qualified Code(s): I63.9 - Cerebral infarction, unspecified PLAN: Onset was the at 2200. Patient did not seek attention until today. Patient is out of the window for tPA. No LVO on CTA so no extraction is necessary at this time. Continue with aspirin. Check MRI of the brain, 2D echocardiogram, fasting lipid panel. Consult physical, occupational and speech therapy. PLAN: Plan Chronic conditions * Diabetes mellitus type 2: Hold metformin as he received IV contrast. Hold off on that for 5 days. Sliding scale insulin for now. Check an A1c. * Hypertension: Allow permissive hypertension for 24 hours after stroke. Resume losartan on the . * Neuropathy: Patient does take large doses of gabapentin. * Questionable Parkinson's. Patient's current presentation is not consistent with Parkinson's. Patient is seeing a neurologist. Patient does not really have any overt signs of Parkinson's on my evaluation but will defer to outpatient neurology. I did express concern for the large quantities of gabapentin that he does take if that is a contributing factor in regards to his weakness and confusion that he may be experiencing chronically. VTE prophylaxis with enoxaparin. CODE STATUS: Spent an additional 60 minutes discussing with the patient and his about advanced directives. Patient does have a living well but there is been no formal CODE STATUS conversation held. He was not ready to make a dec ision at this time. I did recommend just keeping a full code and if he decides to change at a later point to let us know. Charges/Coding Visit Charges Inpatient E&M: 60680 Init Hosp L3 Procedures Hospitalists Procedures: 47334 Critical Care Addl 30 Min
--- OUTSIDE RECORDS SUMMARY | 2023-04-10 14:39 | XMS RPT_ITS | CCD ---
Author Name Unknown Address [address] [place] [address] Organization [facility] Care Team Providers Care Stem Setter Name Role Phone Yosef Whitaker MD Primary Care Provider Yosef Whitaker MD Primary Care Provider [phone] Ernestina FUENTES.EUGENIO, Mary Unavailable [phone] Kim Alonzo MD Unavailable PROVIDER, UNKNOWN Referring Unavailable JULIANNE, YOSEF A Primary Care Unavailable PROVIDER, UNKNOWN Referring Unavailable JULIANNE, YOSEF A Primary Care Unavailable KARYNA, STEPHANIE Attending Unavailable JULIANNE, YOSEF A Primary Care Unavailable CASEY ZAMARRIPA Attending Unavailable JULIANNE, YOSEF A Primary Care Unavailable REUBEN DOMINGUEZ Referring Unavailable JULIANNE, YOSEF A Primary Care Unavailable KIM ALONZO Attending Unavailable JULIANNE, YOSEF A Primary Care Unavailable MARISA IGLESIAS Attending Unavailable JULIANNE, YOSEF A Primary Care Unavailable KARYNA, STEPHANIE Attending Unavailable [facility] Referring Un available JULIANNE, YOSEF A Primary Care Unavailable KARYNA, STEPHANIE Attending Unavailable JULIANNE, YOSEF A Primary Care Unavailable KARYNA, STEPHANIE Attending Unavailable [facility] Referring Un available JULIANNE, YOSEF A Primary Care Unavailable CASEY ZAMARRIPA Attending Unavailable MARGOT BRAVO Referring Unavailable JULIANNE, YOSEF A Primary Care Unavailable KARYNA, STEPHANIE Referring Unavailable JULIANNE, YOSEF A Primary Care Unavailable KARYNA, STEPHANIE Attending Unavailable KARYNA, STEPHANIE Referring Unavailable JULIANNE, YOSEF A Primary Care Unavailable KARYNA, STEPHANIE Referring Unavailable JULIANNE, YOSEF A Primary Care Unavailable BASILIA WYNN Referring Unavailable JULIANNE, YOSEF A Primary Care Unavailable BASILIA WYNN Referring Unavailable JULIANNE, YOSEF A Primary Care Unavailable BASILIA WYNN Referring Unavailable JULIANNE, YOSEF A Primary Care Unavailable KARYNA, STEPHANIE Admitting Unavailable KARYNA, STEPHANIE Attending Unavailable KARYNA, STEPHANIE Referring Unavailable JULIANNE, YOSEF A Primary Care Unavailable JULIANNE, YOSEF A Primary Care Unavailable MARY DO Attending Unavailable JULIANNE, YOSEF A Primary Care Unavailable LOLA ROMO Attending Unavailable JULIANNE, YOSEF A Primary Care Unavailable GOLIAS, MALCOLM Attending Unavailable KRAYNA, STEPHANIE Referring Unavailable JULIANNE, YOSEF A Primary Care Unavailable KARYNA, STEPHANIE Referring Unavailable JULIANNE, YOSEF A Primary Care Unavailable GOLIAS, MALCOLM Attending Unavailable NICOLE MATTHEW Attending Unavailable JULIANNE, YOSEF A Primary Care Unavailable LOLA ROMO Referring Unavailable KARYNA, STEPHANIE Referring Unavailable JULIANNE, YOSEF A Primary Care Unavailable KARYNA, STEPHANIE Referring Unavailable JULIANNE, YOSEF A Primary Care Unavailable GOLIAS, MALCOLM Attending Unavailable KARYNA, STEPHANIE Referring Unavailable JULIANNE, YOSEF A Primary Care Unavailable GOLIAS, MALCOLM Attending Unavailable KARYNA, STEPHANIE Referring Unavailable JULIANNE, YOSEF A Primary Care Unavailable GOLIAS, MALCOLM Attending Unavailable KARYNA, STEPHANIE Referring Unavailable JULIANNE, YOSEF A Primary Care Unavailable KARYNA, STEPHANIE Referring Unavailable JULIANNE, YOSEF A Primary Care Unavailable GOLIAS, MALCOLM Attending Unavailable KARYNA, STEPHANIE Referring Unavailable JULIANNE, YOSEF A Primary Care Unavailable KARYNA, STEPHANIE Referring Unavailable JULIANNE, YOSEF A Primary Care Unavailable JULIANNE, YOSEF A Referring Unavailable HAYLIE CUEVA Attending Unavailable JULIANNE, YOSEF A Primary Care Unavailable GOLIAS, MALCOLM Attending Unavailable KARYNA, STEPHANIE Referring Unavailable JULIANNE, YOSEF A Primary Care Unavailable KARYNA, STEPHANIE Referring Unavailable JULIANNE, YOSEF A Primary Care Unavailable GOLIAS, MALCOLM Attending Unavailable KARYNA, STEPHANIE Referring Unavailable JULIANNE, YOSEF A Primary Care Unavailable GOLIAS, MALCOLM Attending Unavailable KARYNA, STEPHANIE Referring Unavailable JULIANNE, YOSEF A Primary Care Unavailable GOLIAS, MALCOLM Attending Unavailable KARYNA, STEPHANIE Referring Unavailable JULIANNE, YOSEF A Primary Care Unavailable KARYNA, STEPHANIE Referring Unavailable JULIANNE, YOSEF A Primary Care Unavailable JULIANNE, YSOEF A Referring Unavailable JULIANNE, YOSEF A Primary Care Unavailable JULIANNE, YOSEF A Attending Unavailable JULIANNE, YOSEF A Primary Care Unavailable JULIANNE, YOSEF A Referring Unavailable JULIANNE, YOSEF A Primary Care Unavailable JULIANNE, YOSEF A Primary Care Unavailable LOLA ROMO Referring Unavailable JULIANNE, YOSEF A Referring Unavailable JULIANNE, YOSEF A Primary Care Unavailable MARGOT BRAVO Attending Unavailable SHELLY, MARGOT Referring Unavailable JULIANNE, YOSEF A Primary Care Unavailable JULIANNE, YOSEF A Primary Care Unavailable LOLA ROMO Attending Unavailable LOLA ROMO Referring Unavailable MARGOT BRAVO Referring Unavailable JULIANNE, YOSEF A Primary Care Unavailable JULIANNE, YOSEF A Referring Unavailable MARY DO Attending Unavailable JULIANNE, YOSEF A Primary Care Unavailable MARGOT BRAVO Attending Unavailable JULIANNE, YOSEF A Primary Care Unavailable JULIANNE, YOSEF A Primary Care Unavailable RICHARD SCHMIDT Attending Unavailable JULIANNE, YOSEF A Primary Care Unavailable RICHARD SCHMIDT Referring Unavailable JULIANNE, YOSEF A Primary Care Unavailable RICHARD SCHMIDT Attending Unavailable JULIANNE, YOSEF A Primary Care Unavailable JULIANNE, YOSEF A Primary Care Unavailable LOLA ROMO Referring Unavailable MALCOLM LAND Attending Unavailable STEPHANIE SIMPSON Referring Unavailable JULIANNE, YOSEF A Primary Care Unavailable JULIANNE, YOSEF A Referring Unavailable JULIANNE, YOSEF A Attending Unavailable JULIANNE, YOSEF A Primary Care Unavailable MARGOT BRAVO Referring Unavailable JULIANNE, YOSEF A Primary Care Unavailable MARGOT BRAVO Attending Unavailable LOLA ROMO Attending Unavailable JULIANNE, YOSEF A Primary Care Unavailable MARCIE, LOLA Referring Unavailable JULIANNE, YOSEF A Primary Care Unavailable JULIANNE, YOSEF A Attending Unavailable JULIANNE, YOSEF A Primary Care Unavailable Allergies Allergy Classification Reported Allergen(s) Allergy Type Date of Onset Reaction(s) Facility (20 sources) Chlorhexidine; Translations: [CHLORHEXIDINE GLUCONATE (BULK)] Drug Allergy 7 Shortness of Breath [facility] Work Phone: (20 sources) Lisinopril; Translations: [LISINOPRIL] Drug Allergy 6 Cough [facility] Work Phone: (10 sources) Penicillins; Translations: [PENICILLINS] Propensity to adverse reactions to drug 6 Intolerance [facility] Work Phone: (20 sources) Penicillins Propensity to adverse reactions to drug 6 Intolerance [facility] Work Phone: Medications Current Medications Medication Drug Class(es) Dates Sig (Normalized) Sig (Original) bismuth tribrom-petrolatum (XEROFORM) 5 X 9 bndg (2 sources) Start: 07-26-2022 End: 08-02-2022 bismuth tribrom-petrolatum (XEROFORM) 5 X 9 bndg Indications: S/P laminectomy Apply 1 Package to affected area once daily for 7 days. Cut to cover incision, cover with 4x4 gauze. Change daily 7 Each 0 07/26/2022 08/02/2022 Active Completed/Discontinued Medications Medication Drug Class(es) Dates Sig (Normalized) Sig (Original) acetaminophen 325 mg oral tablet (20 sources) Start: 07-17-2022 take 325-650 mg by mouth every four hours as needed acetaminophen (TYLENOL) 325 mg tablet Take 1-2 tablets by mouth every 4 hours as needed for pain. 0 07/17/2022 Active Problems Active Problems Problem Classification Problem Date Documented Date Episodic/Chronic Chronic kidney disease (20 sources) Chronic kidney disease stage 3A ; Translations: [Stage 3a chronic kidney disease (HCC)] Onset: 02-01-2022 Chronic Chronic kidney disease (2 sources) Chronic kidney disease; Translations: [Stage 3a chronic kidney disease (HCC)] Onset: 02-01-2022 Chronic obstructive pulmonary disease and bronchiectasis (1 source) Bronchitis; Translations: [Bronchitis, not specified as acute or chronic] Episodic Complications of surgical procedures or medical care (1 source) Complication of surgical and medical care, unspecified, subsequent encounter; Translations: [Adverse effect of treatment, subsequent encounter] Onset: 01-16-2023 Episodic Coronary atherosclerosis and other heart disease (20 sources) Coronary arteriosclerosis; Translations: [Atherosclerotic heart disease of [place] coronary artery without angina pectoris] Onset: 06-27-2020 06-27-2020 Chronic Deficiency and other anemia (5 sources) Anemia of chronic disease; Translations: [Anemia in other chronic diseases classified elsewhere] Onset: 02-18-2023 02-18-2023 Chronic Deficiency and other anemia (1 source) Anemia; Translations: [Anemia, unspecified] Episodic Delirium, dementia, and amnestic and other cognitive disorders (1 source) Dementia; Translations: [Unspecified dementia without behavioral disturbance] Chronic Diabetes mellitus with complications (20 sources) Type 2 diabetes mellitus; Translations: [Type 2 diabetes mellitus with diabetic polyneuropathy] Onset: 12-12-2015 12-12-2015 Chronic Diabetes mellitus without complication (1 source) Type 2 diabetes mellitus without complication; Translations: [Type 2 diabetes mellitus without complications] Chronic Disorders of lipid metabolism (20 sources) Mixed hyperlipidemia; Translations: [Mixed hyperlipidemia] Onset: 11-01-2013 04-06-2015 Chronic Diverticulosis and diverticulitis (20 sources) Diverticulum of large intestine without hemorrhage; Translations: [Diverticulosis of large intestine without perforation or abscess without bleeding] 04-06-2015 Chronic Esophageal disorders (20 sources) Lesion of esophagus; Translations: [Esophageal obstruction] Onset: 08-20-2016 12-11-2016 Chronic Essential hypertension (20 sources) Benign essential hypertension; Translations: [Essential (primary) hypertension] Onset: 01-25-2005 11-01-2013 Chronic Genitourinary symptoms and ill-defined conditions (20 sources) Urge incontinence of urine; Translations: [Urge incontinence] Onset: 08-10-2015 12-12-2015 Chronic Hemorrhoids (20 sources) Internal hemorrhoids; Translations: [Other hemorrhoids] 11-01-2013 Episodic Hepatitis (7 sources) Nonalcoholic steatohepatitis; Translations: [Nonalcoholic steatohepatitis (SOLER)] Onset: 09-28-2008 02-18-2023 Chronic Immunizations and screening for infectious disease (2 sources) Vaccination needed; Translations: [Encounter for immunization] Onset: 02-18-2023 Episodic Neoplasms of unspecified nature or uncertain behavior (2 sources) Tumor of skin of penis; Translations: [Neoplasm of unspecified behavior of other genitourinary organ] Episodic Occlusion or stenosis of precerebral arteries (20 sources) Bilateral stenosis of carotid arteries; Translations: [Occlusion and stenosis of bilateral carotid arteries] Onset: 10-05-2022 Chronic Other circulatory disease (2 sources) Orthostatic hypotension; Translations: [Orthostatic hypotension] Episodic Other diseases of kidney and ureters (1 source) Renal impairment; Translations: [Disorder of kidney and ureter, unspecified] Episodic Other liver diseases (20 sources) Steatosis of liver; Translations: [Fatty (change of) liver, not elsewhere classified] Onset: 09-28-2008 04-06-2015 Chronic Other nervous system disorders (20 sources) Neuropathy; Translations: [Polyneuropathy, unspecified] Onset: 10-31-2013 04-17-2021 Chronic Other nervous system disorders (10 sources) Cervical myelopathy; Translations: [Disease of spinal cord, unspecified] Onset: 01-16-2023 01-16-2023 Chronic Other nervous system disorders (1 source) Disease of spinal cord, unspecified; Translations: [Cervical myelopathy (HCC)] Onset: 01-16-2023 Chronic Other nervous system disorders (1 source) Other chronic pain; Translations: [Chronic bilateral low back pain without sciatica] Onset: 05-02-2022 Chronic Other nervous system disorders (1 source) Other symptoms and signs involving cognitive functions and awareness; Translations: [Other signs and symptoms involving cognition] Episodic Other nervous system disorders (7 sources) Abnormal gait; Translations: [Unspecified abnormalities of gait and mobility] Onset: 02-13-2023 02-13-2023 Episodic Other nutritional; endocrine; and metabolic disorders (20 sources) Obese class II; Translations: [Obesity, unspecified] Onset: 04-06-2015 Chronic Other nutritional; endocrine; and metabolic disorders (5 sources) Hypomagnesemia; Translations: [Hypomagnesemia] Onset: 02-18-2023 02-18-2023 Chronic Other nutritional; endocrine; and metabolic disorders (1 source) Hypomagnesemia; Translations: [Hypomagnesemia] Onset: 02-18-2023 Chronic Residual codes; unclassified (20 sources) Obstructive sleep apnea syndrome; Translations: [Obstructive sleep apnea (adult) (pediatric)] Onset: 04-06-2015 04-17-2021 Chronic Residual codes; unclassified (2 sources) Obstructive sleep apnea (adult) (pediatric); Translations: [Obstructive sleep apnea syndrome] Onset: 04-18-2021 Chronic Residual codes; unclassified (5 sources) Active living will ; Translations: [Personal history of other specified conditions] Onset: 01-01-2022 Episodic Residual codes; unclassified (1 source) Amnesia; Translations: [Other amnesia] Episodic Residual codes; unclassified (1 source) Ex-tobacco user; Translations: [Other specified personal risk factors, not elsewhere classified] Episodic Spondylosis; intervertebral disc disorders; other back problems (11 sources) Degeneration of lumbar intervertebral disc; Translations: [Other intervertebral disc degeneration, lumbar region] Onset: 01-16-2023 Chronic Unclassified (20 sources) Active living will ; Translations: [Living will on file] Onset: 01-01-2022 01-01-2022 Unclassified (1 source) Established Patient Onset: 08-27-2022 Unclassified (1 source) Chronic bilateral low back pain without sciatica; Translations: [Chronic bilateral low back pain without sciatica] Onset: 05-02-2022 Past or Other Problems Problem Classification Problem Date Documented Date Episodic/Chronic Administrative/social admission (20 sources) Advance directive discussed with patient; Translations: [Other specified counseling] Onset: 01-01-2022 Episodic Conditions associated with dizziness or vertigo (20 sources) Lightheadedness; Translations: [Dizziness and giddiness] Onset: 10-04-2022 Episodic Malaise and fatigue (2 sources) Fatigue; Translations: [Other fatigue] Onset: 08-13-2022 Episodic Nutritional deficiencies (20 sources) Cobalamin deficiency; Translations: [Deficiency of other specified B group vitamins] Onset: 04-06-2015 04-06-2015 Episodic Other aftercare (20 sources) Patient encounter status; Translations: [Other half-way (current) drug therapy] Onset: 12-08-2014 06-27-2020 Episodic Other aftercare (1 source) Other half-way (current) drug therapy; Translations: [Medication management] Onset: 06-27-2020 Episodic Other circulatory disease (1 source) Orthostatic hypotension; Translations: [Orthostatic hypotension] Onset: 10-04-2022 Episodic Other connective tissue disease (20 sources) Pain in bilateral legs; Translations: [Pain in right leg] Onset: 12-28-2020 12-28-2020 Episodic Other male genital disorders (20 sources) Disorder of prostate; Translations: [Disorder of prostate, unspecified] Onset: 08-10-2015 06-18-2017 Episodic Other male genital disorders (1 source) Disorder of prostate, unspecified; Translations: [Prostate disorder] Onset: 06-18-2017 Episodic Other nervous system disorders (20 sources) Ataxia; Translations: [Ataxia, unspecified] Onset: 01-01-2022 Episodic Other nervous system disorders (20 sources) Shuffling gait; Translations: [Other abnormalities of gait and mobility] Onset: 01-01-2022 Episodic Other nervous system disorders (1 source) Other abnormalities of gait and mobility; Translations: [Shuffling gait] Onset: 01-01-2022 Episodic Other non-traumatic joint disorders (20 sources) Ankle pain; Translations: [Pain in left ankle and joints of left foot] Onset: 06-28-2021 Episodic Other non-traumatic joint disorders (20 sources) Pain in right hip joint; Translations: [Pain in right hip] Onset: 10-19-2022 Episodic Other non-traumatic joint disorders (20 sources) Pain in left knee; Translations: [Pain in joint, lower leg] Onset: 06-26-2018 07-01-2019 Episodic Other non-traumatic joint disorders (20 sources) Bilateral hip joint pain; Translations: [Pain in right hip] Onset: 02-06-2019 07-01-2019 Episodic Other non-traumatic joint disorders (1 source) Pain in right hip; Translations: [Right hip pain] Onset: 10-16-2022 Episodic Other screening for suspected conditions (not mental disorders or infectious disease) (20 sources) Other specified abnormal findings of blood chemistry; Translations: [Other abnormal blood chemistry] Onset: 12-11-2016 02-06-2019 Episodic Other skin disorders (20 sources) Inflamed seborrheic keratosis; Translations: [Inflamed seborrheic keratosis] Onset: 08-10-2015 04-17-2021 Episodic Residual codes; unclassified (20 sources) Bilateral lower limb edema; Translations: [Localized edema] Onset: 06-28-2021 Episodic Residual codes; unclassified (20 sources) Memory impairment; Translations: [Other amnesia] Onset: 01-01-2022 Episodic Residual codes; unclassified (20 sources) H/O Spinal surgery; Translations: [Other specified postprocedural states] Onset: 07-27-2022 Episodic Residual codes; unclassified (2 sources) Other specified postprocedural states; Translations: [S/P laminectomy] Onset: 07-26-2022 Episodic Residual codes; unclassified (1 source) Other specified personal risk factors, not elsewhere classified; Translations: [Quit using tobacco in remote past] Onset: 06-29-2022 Episodic Residual codes; unclassified (1 source) Other amnesia; Translations: [Memory difficulties] Onset: 01-01-2022 Episodic Screening and history of mental health and substance abuse codes (20 sources) Ex-smoker; Translations: [Personal history of nicotine dependence] Onset: 08-08-2016 06-19-2018 Episodic Spondylosis; intervertebral disc disorders; other back problems (20 sources) Chronic low back pain; Translations: [Chronic bilateral low back pain without sciatica] Onset: 06-11-2022 Episodic Results Test Name Value Interpretation Reference Range Facil ity Vital Signs Date Time Vital Sign Value Performing Clinician Faci lity 03-12-2023 12:53-0500 Diastolic blood pressure 72 mm[Hg] Richard Schmidt FREEZING ROOM WORKER.BAG PRESSER Work Phone: [facility] 03-12-2023 12:53-0500 Systolic blood pressure 136 mm[Hg] Richard Schmidt FREEZING ROOM WORKER.BAG PRESSER Work Phone: [facility] 03-12-2023 12:42-0500 Body weight 102.06 kg Richard Schmidt FREEZING ROOM WORKER.BAG PRESSER Work Phone: [facility] 03-12-2023 12:42-0500 Heart rate 70 /min Richard Schmidt FREEZING ROOM WORKER.BAG PRESSER Work Phone: [facility] 03-12-2023 12:42-0500 Respiratory rate 16 /min Richard Schmidt FREEZING ROOM WORKER.BAG PRESSER Work Phone: [facility] 02-18-2023 16:22-0400 Diastolic blood pressure 79 mm[Hg] Yosef Whitaker MD Work Phone: [facility] 02-18-2023 16:22-0400 Heart rate 65 /min Yosef Whitaker MD Work Phone: [facility] 02-18-2023 16:22-0400 Systolic blood pressure 158 mm[Hg] Yosef Whitaker MD Work Phone: [facility] 02-18-2023 13:14-0400 Body height 168.9 cm Yosef Whitaker MD Work Phone: [facility] 02-18-2023 13:14-0400 Body weight 102.51 kg Yosef Whitaker MD Work Phone: [facility] 02-18-2023 13:14-0400 Respiratory rate 16 /min Yosef Whitaker MD Work Phone: [facility] 02-18-2023 13:14-0400 SaO2% (BldA) [Mass fraction] 96 % Yosef Whitaker MD Work Phone: [facility] 02-13-2023 11:16-0400 Body height 166.4 cm Stephanie Corona MD Work Phone: [facility] 02-13-2023 11:16-0400 Body weight 104.1 kg Stephanie Corona MD Work Phone: [facility] 02-13-2023 11:16-0400 Diastolic blood pressure 87 mm[Hg] Stephanie Corona MD Work Phone: [facility] 02-13-2023 11:16-0400 Heart rate 86 /min Stephanie Corona MD Work Phone: [facility] 02-13-2023 11:16-0400 Respiratory rate 16 /min Stephanie Corona MD Work Phone: [facility] 02-13-2023 11:16-0400 SaO2% (BldA) [Mass fraction] 98 % Stephanie Corona MD Work Phone: [facility] 02-13-2023 11:16-0400 Systolic blood pressure 151 mm[Hg] Stephanie Corona MD Work Phone: [facility] 02-01-2023 16:08-0400 Body height 166.4 cm Margot Bravo MD Work Phone: [facility] 02-01-2023 16:08-0400 Body weight 102.51 kg Margot Bravo MD Work Phone: [facility] 02-01-2023 16:08-0400 Diastolic blood pressure 80 mm[Hg] Margot Bravo MD Work Phone: [facility] 02-01-2023 16:08-0400 Heart rate 58 /min Margot Bravo MD Work Phone: [facility] 02-01-2023 16:08-0400 Systolic blood pressure 162 mm[Hg] Margot Bravo MD Work Phone: [facility] 10-19-2022 11:00-0400 Diastolic blood pressure 86 mm[Hg] Malcolm Golias PT Work Phone: [facility] 10-19-2022 11:00-0400 Systolic blood pressure 160 mm[Hg] Malcolm Golias PT Work Phone: [facility] 10-17-2022 11:45-0400 Body height 166.4 cm Stephanie Corona MD Work Phone: [facility] 10-17-2022 11:45-0400 Body weight 103 kg Stephanie Corona MD Work Phone: [facility] 10-17-2022 11:45-0400 Diastolic blood pressure 70 mm[Hg] Stephanie Corona MD Work Phone: [facility] 10-17-2022 11:45-0400 Heart rate 74 /min Stephanie Corona MD Work Phone: [facility] 10-17-2022 11:45-0400 SaO2% (BldA) [Mass fraction] 96 % Stephanie Corona MD Work Phone: [facility] 10-17-2022 11:45-0400 Systolic blood pressure 160 mm[Hg] Stephanie Corona MD Work Phone: [facility] 10-16-2022 13:32-0400 Body weight 102.97 kg Richard Schmidt APRN.BAG PRESSER Work Phone: [facility] 10-16-2022 13:32-0400 Diastolic blood pressure 82 mm[Hg] Richard Schmidt APRN.BAG PRESSER Work Phone: [facility] 10-16-2022 13:32-0400 Heart rate 73 /min Richard Schmidt APRN.BAG PRESSER Work Phone: [facility] 10-16-2022 13:32-0400 Respiratory rate 16 /min Richard Schmidt FREEZING ROOM WORKER.BAG PRESSER Work Phone: [facility] 10-16-2022 13:32-0400 Systolic blood pressure 140 mm[Hg] Richard Schmidt FREEZING ROOM WORKER.BAG PRESSER Work Phone: [facility] 10-10-2022 10:40-0400 Body temperature 97.81 [degF] Lola Romo PA- C Work Phone: [facility] 10-10-2022 10:40-0400 Body weight 103.87 kg Lola Romo PA- C Work Phone: [facility] 10-10-2022 10:40-0400 Diastolic blood pressure 80 mm[Hg] Lola Romo PA-C Work Phone: [facility] 10-10-2022 10:40-0400 Heart rate 78 /min Lola Romo PA- C Work Phone: [facility] 10-10-2022 10:40-0400 Respiratory rate 18 /min Lola Romo PA- C Work Phone: [facility] 10-10-2022 10:40-0400 Systolic blood pressure 130 mm[Hg] Lola Romo PA-C Work Phone: [facility] 09-05-2022 10:37-0400 Body temperature 97.7 [degF] Lola Romo PA- C Work Phone: [facility] 09-05-2022 10:37-0400 Body weight 105.23 kg Lola Romo PA- C Work Phone: [facility] 09-05-2022 10:37-0400 Diastolic blood pressure 90 mm[Hg] Lola Romo PA-C Work Phone: [facility] 09-05-2022 10:37-0400 Heart rate 62 /min Lola Romo PA- C Work Phone: [facility] 09-05-2022 10:37-0400 Respiratory rate 18 /min Lola Joyner Work Phone: [facility] 09-05-2022 10:37-0400 Systolic blood pressure 126 mm[Hg] Lola Romo PA-C Work Phone: [facility] 08-27-2022 11:23-0400 Body height 166.4 cm Stephanie Corona MD Work Phone: [facility] 08-27-2022 11:23-0400 Body weight 104.5 kg Stephanie Corona MD Work Phone: [facility] 08-27-2022 11:23-0400 Diastolic blood pressure 68 mm[Hg] Stephanie Corona MD Work Phone: [facility] 08-27-2022 11:23-0400 Heart rate 60 /min Stephanie Corona MD Work Phone: [facility] 08-27-2022 11:23-0400 Respiratory rate 16 /min Stephanie Corona MD Work Phone: [facility] 08-27-2022 11:23-0400 SaO2% (BldA) [Mass fraction] 97 % Stephanie Corona MD Work Phone: [facility] 08-27-2022 11:23-0400 Systolic blood pressure 145 mm[Hg] Stephanie Corona MD Work Phone: [facility] 08-15-2022 11:55-0400 Body temperature 97.9 [degF] Yosef Whitaker MD Work Phone: [facility] 08-15-2022 11:55-0400 Body weight 102.06 kg Yosef Whitaker MD Work Phone: [facility] 08-15-2022 11:55-0400 Diastolic blood pressure 70 mm[Hg] Yosef Whitaker MD Work Phone: [facility] 08-15-2022 11:55-0400 Heart rate 70 /min Yosef Whitaker MD Work Phone: [facility] 08-15-2022 11:55-0400 Respiratory rate 18 /min Yosef Whitaker MD Work Phone: [facility] 08-15-2022 11:55-0400 SaO2% (BldA) [Mass fraction] 97 % Yosef Whitaker MD Work Phone: [facility] 08-15-2022 11:55-0400 Systolic blood pressure 130 mm[Hg] Yosef Whitaker MD Work Phone: [facility] 08-13-2022 11:56-0400 Body temperature 98.2 [degF] Lola Romo PA- C Work Phone: [facility] 08-13-2022 11:56-0400 Body weight 101.61 kg Lola Romo PA- C Work Phone: [facility] 08-13-2022 11:56-0400 Diastolic blood pressure 62 mm[Hg] Lola Romo PA-C Work Phone: [facility] 08-13-2022 11:56-0400 Heart rate 68 /min Lola Romo PA- C Work Phone: [facility] 08-13-2022 11:56-0400 Respiratory rate 18 /min Lolaroxanne Romo PA- C Work Phone: [facility] 08-13-2022 11:56-0400 Systolic blood pressure 126 mm[Hg] Lola Romo PA-C Work Phone: [facility] 07-26-2022 11:18-0400 Body height 167.6 cm Marisa Iglesias FREEZING ROOM WORKER.C EQUIPMENT OPERATOR [employer]ARD Work Phone: [facility] 07-26-2022 11:18-0400 Body weight 107.96 kg Marisa Iglesias FREEZING ROOM WORKER.C EQUIPMENT OPERATOR [employer]ARD Work Phone: [facility] 07-26-2022 11:18-0400 Diastolic blood pressure 70 mm[Hg] Marisa Iglesias FREEZING ROOM WORKER.BAG PRESSER Work Phone: [facility] 07-26-2022 11:18-0400 Heart rate 92 /min Marisa Iglesias APRN.C EQUIPMENT OPERATOR [employer]ARD Work Phone: [facility] 07-26-2022 11:18-0400 SaO2% (BldA) [Mass fraction] 95 % Marisa Iglesias FREEZING ROOM WORKER.BAG PRESSER Work Phone: [facility] 07-26-2022 11:18-0400 Systolic blood pressure 106 mm[Hg] Marisa Iglesias FREEZING ROOM WORKER.BAG PRESSER Work Phone: [facility] 07-04-2022 11:22-0400 Body weight 106.59 kg Yosef Whitaker MD Work Phone: [facility] 07-04-2022 11:22-0400 Diastolic blood pressure 76 mm[Hg] Yosef Whitaker MD Work Phone: [facility] 07-04-2022 11:22-0400 Heart rate 70 /min Yosef Whitaker MD Work Phone: [facility] 07-04-2022 11:22-0400 Respiratory rate 16 /min Yosef Whitaker MD Work Phone: [facility] 07-04-2022 11:22-0400 Systolic blood pressure 132 mm[Hg] Yosef Whitaker MD Work Phone: [facility] 06-29-2022 13:57-0500 Body height 166.4 cm Kim Alonzo MD Work Phone: [facility] 06-29-2022 13:57-0500 Body weight 106.14 kg Kim Alonzo MD Work Phone: [facility] 06-29-2022 13:57-0500 Diastolic blood pressure 90 mm[Hg] Kim Alonzo MD Work Phone: [facility] 06-29-2022 13:57-0500 Heart rate 70 /min Kim Alonzo MD Work Phone: [facility] 06-29-2022 13:57-0500 Respiratory rate 18 /min Kim Alonzo MD Work Phone: [facility] 06-29-2022 13:57-0500 SaO2% (BldA) [Mass fraction] 97 % Kim Alonzo MD Work Phone: [facility] 06-29-2022 13:57-0500 Systolic blood pressure 130 mm[Hg] Kim Alonzo MD Work Phone: [facility] 06-28-2022 13:48-0500 Body height 166.[address] [facility] 06-28-2022 13:48-0500 Body temperature 97.5 [degF] Pst 1 [facility] 06-28-2022 13:48-0500 Body weight 105.23 [address] 1 [facility] 06-28-2022 13:48-0500 Diastolic blood pressure 76 mm[Hg] Pst 1 [facility] 06-28-2022 13:48-0500 Heart rate 69 /min Pst 1 [facility] 06-28-2022 13:48-0500 Respiratory rate 16 /min Pst 1 [facility] 06-28-2022 13:48-0500 SaO2% (BldA) [Mass fraction] 96 % Pst 1 [facility] 06-28-2022 13:48-0500 Systolic blood pressure 123 mm[Hg] Pst 1 [facility] 06-11-2022 12:56-0500 Body height 166.4 cm Stephanie Corona MD Work Phone: [facility] 06-11-2022 12:56-0500 Body weight 104.33 kg Stephanie Corona MD Work Phone: [facility] 06-11-2022 12:56-0500 Diastolic blood pressure 76 mm[Hg] Stephanie Corona MD Work Phone: [facility] 06-11-2022 12:56-0500 Heart rate 75 /min Stephanie Corona MD Work Phone: [facility] 06-11-2022 12:56-0500 SaO2% (BldA) [Mass fraction] 94 % Stephanie Corona MD Work Phone: [facility] 06-11-2022 12:56-0500 Systolic blood pressure 126 mm[Hg] Stephanie Corona MD Work Phone: [facility] 03-28-2022 14:41-0500 Body height 166.4 cm Margot Bravo MD Work Phone: [facility] 03-28-2022 14:41-0500 Body weight 107.96 kg Margot Bravo MD Work Phone: [facility] 03-28-2022 14:41-0500 Diastolic blood pressure 78 mm[Hg] Margot Bravo MD Work Phone: [facility] 03-28-2022 14:41-0500 Heart rate 70 /min Margot Bravo MD Work Phone: [facility] 03-28-2022 14:41-0500 Systolic blood pressure 135 mm[Hg] Margot Bravo MD Work Phone: [facility] 01-01-2022 14:43-0400 Body height 166.4 cm Yosef Whitaker MD Work Phone: [facility] 01-01-2022 14:43-0400 Body weight 104.33 kg Yosef Whitaker MD Work Phone: [facility] 01-01-2022 14:43-0400 Diastolic blood pressure 74 mm[Hg] Yosef Whitaker MD Work Phone: [facility] 01-01-2022 14:43-0400 Heart rate 80 /min Yosef Whitaker MD Work Phone: [facility] 01-01-2022 14:43-0400 Respiratory rate 16 /min Yosef Whitaker MD Work Phone: [facility] 01-01-2022 14:43-0400 Systolic blood pressure 116 mm[Hg] Yosef Whitaker MD Work Phone: [facility] 10-19-2021 11:37-0400 Body height 168.9 cm Gilbert Wilson MD Work Phone: [facility] 10-19-2021 11:37-0400 Body weight 102.97 kg Gilbert Wilson MD Work Phone: [facility] 10-16-2021 10:08-0400 Body height 171.[address] [facility] 10-16-2021 10:08-0400 Body weight 104.[address] [facility] 10-06-2021 10:38-0400 Body weight 104.78 kg Yosef Whitaker MD Work Phone: [facility] 10-06-2021 10:38-0400 Diastolic blood pressure 70 mm[Hg] Yosef Whitaker MD Work Phone: [facility] 10-06-2021 10:38-0400 Heart rate 76 /min Yosef Whitaker MD Work Phone: [facility] 10-06-2021 10:38-0400 Respiratory rate 16 /min Yosef Whitaker MD Work Phone: [facility] 10-06-2021 10:38-0400 Systolic blood pressure 118 mm[Hg] Yosef Whitaker MD Work Phone: [facility] 08-28-2021 15:44-0400 Body weight 106.14 kg Yosef Whitaker MD Work Phone: [facility] 08-28-2021 15:44-0400 Diastolic blood pressure 68 mm[Hg] Yosef Whitaker MD Work Phone: [facility] 08-28-2021 15:44-0400 Heart rate 68 /min Yosef Whitaker MD Work Phone: [facility] 08-28-2021 15:44-0400 Respiratory rate 16 /min Yosef Whitaker MD Work Phone: [facility] 08-28-2021 15:44-0400 Systolic blood pressure 112 mm[Hg] Yosef Whitaker MD Work Phone: [facility] Encounters Encounter Date Encounter Type Care Provider Facility Start: 03-12-2023 End: 03-13-2023 ambulatory RICHARD SCHMIDT Facility:[facility] Start: 03-12-2023 End: 03-12-2023 Patient encounter procedure Richard Schmidt FREEZING ROOM WORKER.BAG PRESSER Work Phone: [facility] Procedures Date Procedure Procedure Detail Performing Clinician Start: 02-23-2023 INFLUENZA VACCINE, P RSV FREE, AGE 65+ YR, HIGH DOSE, QUADRIVALENT (FLUZONE HIGH-DOSE) Luis Vincent MD Work Phone: Start: 10-04-2022 Echocardiography MOE GA DO Start: 06-28-2022 Antibody screen STEPHANIE Baxter CHARLIE Plan of Treatment Date Care Activity Detail Author Start: 03-12-2024 Annual PCP Team Mobile Application Engineer edy Disease Visit Annual PCP Team Chronic Disease Visit [facility] Start: 02-19-2024 3 comp foot exam completed Diabetic Foot Exam [facility] Start: 02-19-2024 Annual PCP Team Mobile Application Engineer edy Disease Visit Annual PCP Team Chronic Disease Visit [facility] Start: 02-19-2024 Covid-19 Vaccine ( season) Covid-19 Vaccine ( season) [facility] Immunizations Immunization Date Immunization Notes Care Provider Fa cility 02-23-2023 influenza (HD-IIV4) vaccine, age 65+ yr, high dose, quadrivalent, PF (FLUZONE HIGH-DOSE) Immunization [place] Work Phone: [facility] 02-23-2023 influenza virus vaccine, unspecified formulation Immunization [place] Work Phone: [facility] 02-10-2022 COVID-19 booster vaccine, age 12+ yr, bivalent (PFIZER-BIONTEnel OGK-5) Immunization [place] Work Phone: [facility] Work Phone: 02-10-2022 influenza, high-dose , quadrivalent vaccine (FLUZONE HIGH DOSE QUADRIVALENT) Immunization [place] Work Phone: [facility] Work Phone: 02-10-2022 influenza virus vaccine, unspecified formulation Yosef Whitaker MD Work Phone: [facility] 01-01-2022 pneumococcal Conjuga te, unspecified formulation Yosef Whitaker MD Work Phone: [facility] Work Phone: 01-01-2022 pneumococcal (PCV20) vaccine, 20 valent (PREVNAR 20) Yosef Whitaker MD Work Phone: [facility] 02-16-2021 COVID-19 vaccine, ag e 12+ yr (PFIZER-BIONTECH - PURPLE TOP) Yosef Whitaker MD Work Phone: [facility] 02-11-2021 influenza, high-dose , quadrivalent vaccine (FLUZONE HIGH DOSE QUADRIVALENT) Yosef Whitaekr MD Work Phone: [facility] Work Phone: 07-15-2020 COVID-19 vaccine, ag e 12+ yr (PFIZER-BIONTECH - PURPLE TOP) Yosef Whitaker MD Work Phone: [facility] Work Phone: 06-24-2020 COVID-19 vaccine, ag e 12+ yr (PFIZER-BIONTECH - PURPLE TOP) Yosef Whitaker MD Work Phone: [facility] Work Phone: 02-10-2020 influenza, high-dose , quadrivalent vaccine (FLUZONE HIGH DOSE QUADRIVALENT) Yosef Whitaker MD Work Phone: [facility] 01-27-2019 influenza, high dose seasonal, preservative-free Yosef Whitaker MD Work Phone: [facility] 07-07-2018 zoster vaccine recombinant Yosef Whitaker MD Work Phone: [facility] 05-01-2018 zoster vaccine recombinant Yosef Whitaker MD Work Phone: [facility] 02-22-2018 influenza, high dose seasonal, preservative-free Yosef Whitaker MD Work Phone: [facility] 01-26-2017 influenza, high dose seasonal, preservative-free Yosef Whitaker MD Work Phone: [facility] Work Phone: 01-27-2016 influenza, high dose seasonal, preservative-free Yosef Whitaker MD Work Phone: [facility] Work Phone: 04-06-2015 pneumococcal polysaccharide vaccine, 23 valent Yosef Whitaker MD Work Phone: [facility] Work Phone: 03-05-2015 influenza, high dose seasonal, preservative-free Yosef Whitaker MD Work Phone: [facility] Work Phone: 02-20-2015 pneumococcal conjuga te vaccine, 13 valent Stephanie Corona MD Work Phone: [facility] 04-08-2014 pneumococcal conjuga te vaccine, 13 valent Yosef Whitaker MD Work Phone: [facility] Work Phone: 02-17-2014 influenza, seasonal, injectable Yosef Whitaker MD Work Phone: [facility] Work Phone: 03-07-2013 influenza virus vaccine, unspecified formulation Yosef Whitaker MD Work Phone: [facility] Work Phone: 02-09-2012 influenza virus vaccine, unspecified formulation Yosef Whitaker MD Work Phone: [facility] Work Phone: 01-24-2011 influenza virus vaccine, unspecified formulation Yosef Whitaker MD Work Phone: [facility] Work Phone: 01-24-2011 zoster vaccine, live Yosef Whitaker MD Work Phone: [facility] Work Phone: 02-16-2010 influenza virus vaccine, unspecified formulation Yosef Whitaker MD Work Phone: [facility] Work Phone: 02-04-2009 influenza virus vaccine, unspecified formulation Yosef Whitaker MD Work Phone: [facility] 02-27-2008 influenza virus vaccine, unspecified formulation Yosef Whitaker MD Work Phone: [facility] Work Phone: 01-19-2008 pneumococcal polysaccharide vaccine, 23 valent Yosef Whitaker MD Work Phone: [facility] 02-17-2007 influenza virus vaccine, unspecified formulation Yosef Whitaker MD Work Phone: [facility] Work Phone: 02-12-2006 influenza virus vaccine, whole virus Yosef Whitaker MD Work Phone: [facility] Work Phone: 04-06-2005 tetanus toxoid, redu maryse diphtheria toxoid, and acellular pertussis vaccine, adsorbed Yosef Whitaker MD Work Phone: [facility] Work Phone: 03-27-2005 influenza virus vaccine, whole virus Yosef Whitaker MD Work Phone: [facility] Work Phone: 04-22-1996 diphtheria and tetan us toxoids, adsorbed for pediatric use Yosef Whitaker MD Work Phone: [facility] Work Phone: Payers Date Payer Category Payer Medicare [id number] 2021 Medicare AETNA MEDICARE A ETNA MEDICARE PPO [id number] 2021-[facility] [phone] [address] [place] [address] O [id number] 2021 Medicare [id number] 2021 Medicare [id number] 2013 Medicare AETNA MEDICARE A ETNA MEDICARE PPO [id number] 2013-2021 [address] [place] [address] [facility] [id number] Social History Date Type Detail Facility Start: 06-18-2017 End: 01-01-2022 Tobacco smoking status NHIS Ex-smoker [facility] Work Phone: End: 04-22-1989 History of tobacco use Current smoker [facility] End: 04-22-1989 History of tobacco use Cigarette Smoker [facility] Start: 08-28-2021 End: 02-18-2023 Alcohol intake Current drinker of alcohol (finding) [facility] Start: 08-28-2021 End: 07-03-2022 History SDOH Alcohol Frequency 2 [facility] Start: 08-28-2021 End: 07-03-2022 History SDOH Alcohol Std Drinks 1 [facility] Start: 08-28-2021 End: 07-03-2022 History SDOH Social Connections Jehovah'S Witness 3 [facility] Start: 08-28-2021 End: 07-03-2022 History SDOH Financial 5 [facility] Start: 1945 Sex Assigned At Not on file [facility] Start: 08-18-2021 End: 01-24-2022 Exposure to SARS-CoV-2 (event) Not sure [facility] Start: 06-18-2017 End: 08-27-2022 Cigarettes smoked current (pack per day) - Reported 1 [facility] Start: 06-18-2017 End: 01-01-2022 Tobacco use and exposure Smokeless tobacco non-user [facility] Start: 06-27-2022 End: 07-03-2022 History SDOH Physical Activity DPW 0 [facility] Start: 07-03-2022 End: 08-27-2022 Social connection and isolation panel [facility] Do you belong to any clubs or organizations such as worship groups, unions, fraternal or athletic groups, or school groups? Yes [facility] Are you now , , , , never or living with a partner? [facility] How often to you hav e a drink containing alcohol? 2-4 times a month [facility] How many standard dr inks containing alcohol do you have on a typical day? 1 or 2 [facility] How often do you hav e 6 or more drinks on 1 occasion? Never [facility] How hard is it for y ou to pay for the very basics like food, housing, medical care, and heating Not hard at all [facility] Do you feel stress - tense, restless, nervous, or anxious, or unable to sleep at night because your mind is troubled all the time - these days [OSQ] To some extent [facility] (I/We) worried wheth er (my/our) food would run out before (I/we) got money to buy more. Never true [facility] In the past 12 month s, was there a time when you were not able to pay the mortgage or rent on time? No [facility] How often to you hav e a drink containing alcohol? Monthly or less [facility] Do you feel stress - tense, restless, nervous, or anxious, or unable to sleep at night because your mind is troubled all the time - these days [OSQ] Not at all [facility] Clinical Notes 07-04-2005 to 03-12-2023 Richard Schmidt APRN.EUGENIO - 03/12/2023 12:46 PM ESTTelephone Encounter - Noemi Xiao Ma - 02/19/2023 4:14 PM EDTTelephone Encounter - Yosef Whitaker MD - 02/19/2023 4:06 PM EDT Note Date & Type Note Facility 03-12-2023 Note [facility] 03-12-2023 History of Present illness Narrative Chief Complaint Patient presents with: Follow Up: Blood pressure HPI Essie Espino is a 77 year old male who presents here today for Above Complaints.. Patient presents for BP follow up. Patient was seen [address] Whitaker at which time his BP was elevated. No medication changes were made at that visit. Past medical history, appointments, medications, allergies reviewed. Previous Medical History PAST MEDICAL HISTORY Diagnosis Date Advance directive discussed with patient 01/01/2022 Discussed 12/2021 Anemia of chronic disease 02/18/2023 H-13 Arthritis B12 deficiency 04/06/2015 Bilateral leg edema 06/28/2021 Cervical myelopathy (HCC) 01/16/2023 Coronary artery disease Diabetic eye exam ([facility]) 11/01/2013 Last done:05/20/2018 Diverticulosis of large intestine without hemorrhage Elevated LFTs 12/11/2016 Elevated PSA 12/30/2018 Esophageal stenosis 08/20/2016 Essential hypertension, benign 01/25/2005 Ex-smoker 08/08/2016 US: 08/15/2016 no AAA Fatty liver 09/28/2008 CT showed diffuse fatty infiltration (incidental on CT chest) Mildly elevated LFT's since 01/26 GERD without esophagitis 06/27/2020 Internal hemorrhoids without mention of complication Leg pain, bilateral 12/28/2020 Living will on file 01/01/2022 DPA: Stacey () Medicare annual wellness visit, subsequent 12/18/2017 Medicare Part B: 06/20/2010 last done: 12/30/2018 Memory difficulties 01/01/2022 MMSE 12/2021 was 30/30 Mixed hyperlipidemia 11/01/2013 Morbid obesity due to excess calories ([facility]) 04/06/2015 SOLER (nonalcoholic steatohepatitis) 09/28/2008 CT showed diffuse fatty infiltration (incidental on CT chest) Mildly elevated LFT's since 01/26 Neuropathy 10/31/2013 Had low back surgery 2010 for disc herniation and has had numbness in his toes since then. Obesity, Class II, BMI 35-39.9 04/06/2015 Obstructive sleep apnea syndrome 04/06/2015 CPAP with good success Pain of both hip joints 02/06/2019 PMH - PAST MEDICAL HISTORY OF 02/2008 release nerves in back S/P laminectomy 07/27/2022 Seborrheic keratoses, inflamed 08/10/2015 Left temporal and right check Spinal stenosis of lumbar region Spinal stenosis of lumbar region Spinal stenosis, lumbar region without neurogenic claudication 07/15/2022 Spondylosis with myelopathy, thoracic region 01/16/2023 Stage 3a chronic kidney disease (HCC) 02/01/2022 Type 2 diabetes mellitus with diabetic polyneuropathy, without long-term current use of insulin ([facility]) 12/12/2015 Urge incontinence 08/10/2015 VENTRICULAR TACHYCARDIA, PAROXYSMAL 07/04/2005 Previous Surgical History PAST SURGICAL HISTORY Procedure Laterality Date APPENDECTOMY BACK SURGERY HX 2007 BACK SURGERY HX 07/12/2022 L3-4 Laminectomy CHOLECYSTECTOMY Cholecystectomy COLONOSCOPY FLX DX W/COLLJ SPEC WHEN PFRMD 11/07/2005 Colonoscopy recheck 10 yrs COLONOSCOPY FLX DX W/COLLJ SPEC WHEN PFRMD 07/29/2017 Colonoscopy EGD 05/16/2020 ESOPHAGOGASTRODUODENOSCOPY TRANSORAL DIAGNOSTIC 03/23/2013 EGD EYE SURGERY HX FECAL OCCULT BLOOD TEST 12/14/2016 negative PAST SURGICAL HISTORY OF 03/2008 lumbar decompression, [facility] PAST SURGICAL HISTORY OF 09/2014 left cataract PAST SURGICAL HISTORY OF 2007 right cataract PAST SURGICAL HISTORY OF Left 09/02/2018 partial medial and lateral menisectomy, loose body removal. TONSILLECTOMY HX Family History FAMILY HISTORY Problem Relation Age of Onset Coronary Artery Disease Father age 68; heavy EtOH use Alcohol/Drug Father alcoholism Diabetes Paternal Grandmother Prostate Cancer Other none Colon Cancer Other none known Dementia Paternal Uncle identicle twin to pt's father Patient Allergies ALLERGIES Allergen Reactions Chlorhexidine Gluco* Shortness of Breath Lisinopril Cough Penicillins Intolerance thinks he has had PCN without complication Current Medications Current Outpatient Medications on File Prior to Visit Medication Sig omeprazole (PRILOSEC) 40 mg capsule Take 1 capsule by mouth once daily. metFORMIN (GLUCOPHAGE) 1,000 mg tablet Take 1 tablet by mouth two times a day with meals. oxybutynin ER (DITROPAN XL) 10 mg 24 hr tablet Take 1 tablet by mouth once daily. For overactive bladder losartan (COZAAR) 50 mg tablet Take 1 tablet by mouth once daily. simvastatin (ZOCOR) 10 mg tablet Take 1 tablet by mouth daily at bedtime. gabapentin (NEURONTIN) 400 mg capsule Take 2 capsules by mouth three times a day for 180 days. aspirin, enteric coated (ASPIRIN, ENTERIC COATED) 81 mg EC tablet Take 81 mg by mouth once daily. diclofenac, EC, (VOLTAREN) 75 mg EC tablet Take 1 tablet by mouth twice daily. For pain/inflammation. Take with food. gabapentin (NEURONTIN) 100 mg capsule Take 2 capsules by mouth three times daily for 90 days. Along with your 800 mg three times a day for a total of 1000 mg three times a day. acetaminophen (TYLENOL) 325 mg tablet Take 1-2 tablets by mouth every 4 hours as needed for pain. CPAP/BIPAP/OTHER New set up: Settings 7 - 20 cm H2O, suitable mask per pt preference (nasal mask), chin strap, head gear, humidity, tubing, lifetime supplies. G47.33 FUAD cyanocobalamin (VITAMIN B-12) 1,000 mcg tab Take 1 tablet by mouth once daily. CPAP Use 10 cm in the nose daily at bedtime. Current Facility-Administered Medications on File Prior to Visit Medication perflutren lipid microspheres 1.3 mL in NaCl (PF) 0.9% 10 mL injection (DEFINITY) sodium chloride 0.9 % (flush) 10 mL (BD POSIFLUSH) Social History Social History Tobacco Use Smoking status: Former Packs/day: 1.00 Years: 20.00 Additional pack years: 0.00 Total pack years: 20.00 Types: Cigarettes Quit date: 04/22/1989 Years since quittin.9 Smokeless tobacco: Never Vaping Use Vaping Use: Never used Substance Use Topics Alcohol use: Yes Comment: OCCASIONAL Drug use: No Review of Symptoms REVIEW OF SYSTEMS SEE HPI EXAM: BP 162/78 Pulse 70 Resp 16 Wt 102.1 kg (225 lb) BMI 35.77 kg/m General Appearance: Well appearing, alert, in no acute distress, well-hydrated, well nourished.. Lungs: Lungs clear to auscultation. No wheezing, rhonchi, rales.. Heart: RRR without murmur, gallop, or rubs. No ectopy. Health Maintenance List BP Controlled (<130/80) Never done DTaP,Tdap,Td Vaccine(3 - Td or Tdap) due on 02/19/2024 RSV Vaccine(1 - 1-dose 60+ series) due on 02/19/2024 Covid-19 Vaccine( season) due on 02/19/2024 HbA1C due on 08/10/2023 Dilated Retinal Exam due on 02/05/2024 Urine Albumin:Creatinine Ratio due on 02/09/2024 LDL Cholesterol due on 02/09/2024 Serum Creatinine due on 02/09/2024 Hemoglobin/Hematocrit due on 02/09/2024 Diabetic Foot Exam due on 02/19/2024 Annual PCP Team Chronic Disease Visit due on 02/19/2024 Influenza Vaccine Completed Advance Directive Discussion Completed Depression Assessment Completed Hepatitis C Screening Completed Shingrix Vaccine Completed Pneumococcal Vaccine: 65+ Completed Hepatitis B Vaccine Discontinued Colorectal Cancer Screening Discontinued ASSESSMENT/PLAN: 1. Essential hypertension, benign - ICD9: 401.1, ICD10: I10 - Controlled - Continue current medications - Recommend home blood pressure monitoring, to bring results to next visit - Encouraged sodium restriction, DASH or Mediterranean diet - Recommend regular aerobic exercise - Discussed need for and benefit of weight loss. BMI 35.77 kg/(m^2) Richard Schmidt APRN.BAG PRESSER documented in this encounter [facility] 02-19-2023 Miscellaneous Notes Called and spoke with pt's , Stacey (per notes okay to give info). Notified her of results below verbalized understanding. Noemi Xiao Ma Let patient know repeat potassium was normal. documented in this encounter [facility] 02-18-2023 Nurse Note 158/79 Average 65 163/78 156/76 160/80 157/82 154/79 Patient was scheduled for 3 week [employer] follow up for HTN documented in this encounter [facility] 02-18-2023 Note [facility] 02-18-2023 Instructions Yosef Whitaker MD - 02/18/2023 1:39 PM EDT If you bare considering on getting the RSV vaccine you have to get it at a local pharmacy. Consider getting a Tdap for tetanus update from the health dept. Please get labs done on or after 12/08/2022 prior to your next visit. documented in this encounter [facility] 02-18-2023 History of Present illness Narrative Medicare Yearly Visit Medical B eligibilty date 06/20/2010 Date of last exam 01/01/2022 PAST MEDICAL HISTORY PAST MEDICAL HISTORY Diagnosis Date Apnea Coronary artery disease Diabetes (HCC) Diverticulosis of colon (without mention of hemorrhage) DM type 2 (diabetes mellitus, type 2) (HCC) 11/01/2013 Essential hypertension, benign 01/25/2005 FATTY LIVER DISEASE 09/28/2008 CT showed diffuse fatty infiltration (incidental on CT chest) Mildly elevated LFT's since 01/26 Hypercholesteremia Hyperlipidemia 11/01/2013 Internal hemorrhoids without mention of complication Neuropathy (HCC) 10/31/2013 Had low back surgery 2010 for disc herniation and has had numbness in his toes since then. PMH - PAST MEDICAL HISTORY OF 02/27 release nerves in back Snoring Unspecified sleep apnea 04/24/2005 CPAP with good success VENTRICULAR TACHYCARDIA, PAROXYSMAL 07/04/2005 PAST SURGICAL HISTORY PAST SURGICAL HISTORY Procedure Laterality Date COLONOSCOP W/ OR W/O [facility] SPEC 11/07/2005 Colonoscopy recheck 10 yrs COLONOSCOP W/ OR W/O [facility] SPE[facility] 07/29/2017 Colonoscopy EGD W/O OR W/BRUSH/WASH 03/23/13 EGD FECAL OCCULT BLOOD TEST 12/14/2016 negative PAST SURGICAL HISTORY OF 03/29 lumbar decompression, [facility] PAST SURGICAL HISTORY OF 09/2014 left cataract PAST SURGICAL HISTORY OF 2007 right cataract REMOVAL GALLBLADDER Cholecystectomy Chlorhexidine Gluconate (Bulk); Lisinopril; Penicillins Medications reviewed: Yes FAMILY HISTORY FAMILY HISTORY Problem Relation Age of Onset Diabetes Paternal Grandmother Coronary Artery Disease Father age 68; heavy EtOH use Alcohol/Drug Father alcoholism Prostate Cancer Other none Colon Cancer Other none known SOCIAL HISTORY: SOCIAL HISTORY Social History Marital status: Spouse name: Stacey Years of education: Number of children: 4 Occupational History Occupation Employer Comment retired [employer] Social History Main Topics Smoking status: Former Smoker Packs/day: 1.00 Years: 20.00 Types: Cigarettes Quit date: 04/22/1989 Smokeless tobacco: Never Used Alcohol use: Yes Comment: OCCASIONAL Drug use: No Essie denies regular aerobic exercise . He watches his diet for sodium, low fat and low cholesterol very little of the time. List of current specialists [facility], Optho Dr. Bravo (Neuro) End of Live Planning discussed including patients advanced directive wishes: Yes I am willing to follow Essie's advanced directives. Depression screen No risk of depression. Functional Ability/Safety Screen 1. Was the patient's timed Up and Go test unsteady or longer than 30 seconds? yes 2. Does the patient need help with the phone, transportation, shopping,preparing meals, housework, laundry, medications or managing money? does most of the shopping and manages the finances. no longer driving 3. Does your home have rugs in the hallway, lack of grab bars in the bathroom, lack of handrails on the stairs or have poor lighting? No Hearing Evaluation: hard of hearing and wears hearing aids. Just got new ones. PHYSICAL EXAM BP 148/94 (BP Site: Left Arm, BP Position: Sitting, BP Cuff Size: Large Adult) Pulse 68 Resp 16 Ht 168.9 cm (5' 6.5 ) Wt 102.5 kg (226 lb) SpO2 96% BMI 35.93 kg/m Alert and oriented X 3: YES Body mass index is 35.93 kg/m . Seeing optho See below ASSESSMENT/PLAN: 77 year old male The following prevention plan was discussed during the office visit and provided to the patient: See below Chief Complaint Patient presents with: Medicare Wellness Exam HPI Essie Espino is a 77 year old male who presents here today for Chronic Medical Conditions. and Medicare Annual Visit. Patient with Hx of DM type 2, B12 def, CAD, GERD, Hypertension, Hyperlipidemia, obesity, neuropathy along with those reviewed and addressed below and in ROS. Still using CPAP? Yes but notes he is tired still often each morning. Feels after he gets up he could go back to bed and sleep more. says he seems to sleep well and sleeps through the night. FBS? None Last A1C 5.9 Previous 06/2022 6.3 Even with all the PHYSICAL THERAPY after his low back surgery his balance is worse. Check BP at home? None Patient sees Dr. Cueva for DM foot last visit 10/2022 - patient didn't want to go back. [facility] Patient Neurosurgery - Dr. Simpson last visit 01/16/2023. Neuro suspects the possibility of Parkinson's with the balance issues, slow movements and thought process. Patient was in PT for his right hip pain. Patient sees Mary Do with Sleep disorders last visit 08/16/2022 [facility]. Past medical history, appointments, medications, allergies reviewed. Previous Medical History PAST MEDICAL HISTORY Diagnosis Date Advance directive discussed with patient 01/01/2022 Discussed 12/2021 Arthritis B12 deficiency 04/06/2015 Bilateral leg edema 06/28/2021 Coronary artery disease Diabetic eye exam (HCC) 11/01/2013 Last done:05/20/2018 Diverticulosis of large intestine without hemorrhage Elevated LFTs 12/11/2016 Elevated PSA 12/30/2018 Esophageal stenosis 08/20/2016 Essential hypertension, benign 01/25/2005 Ex-smoker 08/08/2016 US: 08/15/2016 no AAA Fatty liver 09/28/2008 CT showed diffuse fatty infiltration (incidental on CT chest) Mildly elevated LFT's since 01/26 GERD without esophagitis 06/27/2020 Internal hemorrhoids without mention of complication Leg pain, bilateral 12/28/2020 Living will on file 01/01/2022 DPA: Stacey () Medicare annual wellness visit, subsequent 12/18/2017 Medicare Part B: 06/20/2010 last done: 12/30/2018 Mixed hyperlipidemia 11/01/2013 Morbid obesity due to excess calories (HCC) 04/06/2015 Neuropathy 10/31/2013 Had low back surgery 2010 for disc herniation and has had numbness in his toes since then. Obesity, Class II, BMI 35-39.9 04/06/2015 Obstructive sleep apnea syndrome 04/06/2015 CPAP with good success Pain of both hip joints 02/06/2019 PMH - PAST MEDICAL HISTORY OF 02/2008 release nerves in back Seborrheic keratoses, inflamed 08/10/2015 Left temporal and right check Spinal stenosis of lumbar region Spinal stenosis of lumbar region Stage 3a chronic kidney disease (HCC) 02/01/2022 Type 2 diabetes mellitus with diabetic polyneuropathy, without long-term current use of insulin (HCC) 12/12/2015 Urge incontinence 08/10/2015 VENTRICULAR TACHYCARDIA, PAROXYSMAL 07/04/2005 Previous Surgical History PAST SURGICAL HISTORY Procedure Laterality Date APPENDECTOMY BACK SURGERY HX 2007 BACK SURGERY HX 07/12/2022 L3-4 Laminectomy CHOLECYSTECTOMY Cholecystectomy COLONOSCOPY FLX DX W/COLLJ SPEC WHEN PFRMD 11/07/2005 Colonoscopy recheck 10 yrs COLONOSCOPY FLX DX W/COLLJ SPEC WHEN PFRMD 07/29/2017 Colonoscopy EGD 05/16/2020 ESOPHAGOGASTRODUODENOSCOPY TRANSORAL DIAGNOSTIC 03/23/2013 EGD EYE SURGERY HX FECAL OCCULT BLOOD TEST 12/14/2016 negative PAST SURGICAL HISTORY OF 03/2008 lumbar decompression, [facility] PAST SURGICAL HISTORY OF 09/2014 left cataract PAST SURGICAL HISTORY OF 2007 right cataract PAST SURGICAL HISTORY OF Left 09/02/2018 partial medial and lateral menisectomy, loose body removal. TONSILLECTOMY HX Family History FAMILY HISTORY Problem Relation Age of Onset Coronary Artery Disease Father age 68; heavy EtOH use Alcohol/Drug Father alcoholism Diabetes Paternal Grandmother Prostate Cancer Other none Colon Cancer Other none known Dementia Paternal Uncle identicle twin to pt's father Patient Allergies ALLERGIES Allergen Reactions Chlorhexidine Gluco* Shortness of Breath Lisinopril Cough Penicillins Intolerance thinks he has had PCN without complication Current Medications Current Outpatient Medications on File Prior to Visit Medication Sig gabapentin (NEURONTIN) 400 mg capsule Take 2 capsules by mouth three times a day for 180 days. aspirin, enteric coated (ASPIRIN, ENTERIC COATED) 81 mg EC tablet Take 81 mg by mouth once daily. omeprazole (PRILOSEC) 40 mg capsule Take 1 capsule by mouth once daily. metFORMIN (GLUCOPHAGE) 1,000 mg tablet Take 1 tablet by mouth twice daily with meals. oxybutynin ER (DITROPAN XL) 10 mg 24 hr tablet Take 1 tablet by mouth once daily. For overactive bladder losartan (COZAAR) 50 mg tablet Take 1 tablet by mouth once daily. diclofenac, EC, (VOLTAREN) 75 mg EC tablet Take 1 tablet by mouth twice daily. For pain/inflammation. Take with food. simvastatin (ZOCOR) 10 mg tablet Take 1 tablet by mouth daily at bedtime. gabapentin (NEURONTIN) 100 mg capsule Take 2 capsules by mouth three times daily for 90 days. Along with your 800 mg three times a day for a total of 1000 mg three times a day. pantoprazole DR (PROTONIX) 40 mg tablet Take 40 mg by mouth once daily. acetaminophen (TYLENOL) 325 mg tablet Take 1-2 tablets by mouth every 4 hours as needed for pain. CPAP/BIPAP/OTHER New set up: Settings 7 - 20 cm H2O, suitable mask per pt preference (nasal mask), chin strap, head gear, humidity, tubing, lifetime supplies. G47.33 FUAD cyanocobalamin (VITAMIN B-12) 1,000 mcg tab Take 1 tablet by mouth once daily. CPAP Use 10 cm in the nose daily at bedtime. Current Facility-Administered Medications on File Prior to Visit Medication perflutren lipid microspheres 1.3 mL in NaCl (PF) 0.9% 10 mL injection (DEFINITY) sodium chloride 0.9 % (flush) 10 mL (BD POSIFLUSH) Social History Social History Tobacco Use Smoking status: Former Packs/day: 1.00 Years: 20.00 Additional pack years: 0.00 Total pack years: 20.00 Types: Cigarettes Quit date: 04/22/1989 Years since quittin.8 Smokeless tobacco: Never Vaping Use Vaping Use: Never used Substance Use Topics Alcohol use: Yes Comment: OCCASIONAL Drug use: No Review of Symptoms REVIEW OF SYSTEMS GENERAL: No weight loss, malaise or fevers HEENT: Negative for frequent or significant headaches, No changes in hearing or vision, no nose bleeds or other nasal problems. Did get new hearing aids and seems to be helping more. NECK: Negative for lumps, goiter, pain and significant neck swelling RESPIRATORY: Negative for cough, hemoptysis, wheezing, COPD, dyspnea or shortness of breath CARDIOVASCULAR: Negative for chest pain, hypertension, CHF or palpitations. Has some lower extremity swelling as th day goes on with sitting more and his legs are down. Lt>Rt. GI: No nausea, vomiting, or diarrhea, No heartburn or reflux symptoms, and no blood : No history of dysuria, frequency or blood MUSCULOSKELETAL: still has some low back stiffness. SKIN: Negative for lesions, rash, and itching PSYCH: Negative for sleep disturbance, mood disorder and recent psychosocial stressors HEMATOLOGY/LYMPHOLOGY: Negative for prolonged bleeding, bruising easily or swollen nodes ENDOCRINE: Negative for heat intolerance, polyuria, polydipsia and goiter. Gets cold mre often with sitting. NEURO: No history of headaches, syncope, paralysis, seizures or tremors EXAM: BP 148/94 (BP Site: Left Arm, BP Position: Sitting, BP Cuff Size: Large Adult) Pulse 68 Resp 16 Ht 168.9 cm (5' 6.5 ) Wt 102.5 kg (226 lb) SpO2 96% BMI 35.93 kg/m BP 142/80 Pulse 68 Resp 16 Ht 168.9 cm (5' 6.5 ) Wt 102.5 kg (226 lb) SpO2 96% BMI 35.93 kg/m Last 4 Encounter Wt Readings: Date: Wt: 02/18/2023 102.5 kg (226 lb) 02/13/2023 104.1 kg (229 lb 8 oz) 02/01/2023 102.5 kg (226 lb) 01/16/2023 101.7 kg (224 lb 3.3 oz) General Appearance: Well appearing, alert, in no acute distress, well-hydrated, well nourished. Obese. Skin: Skin color, texture, turgor normal, no suspicious rashes or lesions. Head: Normocephalic, no masses, lesions, tenderness or abnormalities. Eyes: Anicteric sclera. Pupils are equally round and reactive to light. Extraocular movements are intact. . Ears: External ears, YTM's normal, canals clear. Nose/Sinuses: Nares normal, septum midline, mucosa normal, no drainage or sinus tenderness. Oropharynx: Lips, mucosa, and tongue normal, teeth and gums normal, oropharynx normal. Neck: Supple, no adenopathy; thyroid symmetric, normal size, no bruits. Lungs: Lungs clear to auscultation. No wheezing, rhonchi, rales.. Heart: RRR without murmur, gallop, or rubs. No ectopy. Abdomen: Normal abdominal exam, Abdomen soft, non-tender. Bowel sounds normal. No masses, organomegaly. Extremities: No deformities, skin discoloration, Good capillary refill. Has support socks on and not appreciating any pitting edema. Musculoskeletal: Muscular strength intact, No joint swelling, deformity, or tenderness. Peripheral Pulses: Normal. Neurologic: Gait assisted with walker. Reflexes normal and symmetric. Sensation to light touch and crainal nerves 2-12 intact.. Diabetic Foot Exam: - Seeing Podiatry Health Maintenance List BP Controlled (<130/80) Never done Hepatitis B Vaccine(1 of 3 - Risk 3-dose series) Never done RSV Vaccine(1 - 1-dose 60+ series) Never done DTaP,Tdap,Td Vaccine(3 - Td or Tdap) due on 04/06/2015 Influenza Vaccine(1) due on 12/21/2022 Covid-19 Vaccine( season) due on 12/21/2022 Diabetic Foot Exam due on 01/01/2023 HbA1C due on 08/10/2023 Annual PCP Team Chronic Disease Visit due on 10/17/2023 Dilated Retinal Exam due on 02/05/2024 Urine Albumin:Creatinine Ratio due on 02/09/2024 LDL Cholesterol due on 02/09/2024 Serum Creatinine due on 02/09/2024 Hemoglobin/Hematocrit due on 02/09/2024 Advance Directive Discussion Completed Depression Assessment Completed Hepatitis C Screening Completed Shingrix Vaccine Completed Pneumococcal Vaccine: 65+ Completed Colorectal Cancer Screening Discontinued Data reviewed Component Latest Ref Rng & Units 01/01/2022 01/02/2022 01/31/2022 08/13/2022 02/08/2023 WBC 3.70 - 11.00 k/uL 9.44 7.62 8.56 RBC 4.20 - 6.00 m/uL 4.25 4.08 (L) 4.16 (L) Hemoglobin 13.0 - 17.0 g/dL 12.7 (L) 12.6 (L) 12.2 (L) Hematocrit 39.0 - 51.0 % 40.7 39.7 39.5 MCV 80.0 - 100.0 fL 95.8 97.3 95.0 MCH 26.0 - 34.0 pg 29.9 30.9 29.3 MCHC 30.5 - 36.0 g/dL 31.2 31.7 30.9 RDW-CV 11.5 - 15.0 % 14.2 15.5 (H) 14.7 Platelet Count 150 - 400 k/uL 261 220 275 MPV 9.0 - 12.7 fL 10.6 11.2 10.6 Neut% % 56.8 57.1 68.6 Abs Neut (ANC) 1.45 - 7.50 k/uL 5.36 4.36 5.87 Lymph% % 25.6 25.1 18.2 Abs Lymph 1.00 - 4.00 k/uL 2.42 1.91 1.56 [place]% % 8.8 8.4 7.0 Abs [place] <0.87 k/uL 0.83 0.64 0.60 Eosin% % 7.5 8.4 5.0 Abs Eosin <0.46 k/uL 0.71 (H) 0.64 (H) 0.43 Baso% % 1.0 0.7 0.5 Abs Baso <0.11 k/uL 0.09 0.05 0.04 Immature Gran % % 0.3 0.3 0.7 IMMATURE GRANS (ABS) <0.10 k/uL 0.03 <0.03 0.06 NRBC /100 WBC 0.0 0.0 0.0 Absolute nRBC <0.01 k/uL <0.01 <0.01 <0.01 DTYPE Auto Auto Auto Color Yellow Yellow Yellow Clarity Clear Clear Clear Glucose, Urine Negative Negative Negative Bilirubin, Urine Negative Negative Negative Ketones, Urine Negative Negative Negative Specific [place], Ur 1.005 - 1.030 1.026 1.021 Hemoglobin/Blood,Ur Negative Negative Negative pH, Urine <8.5 5.0 5.5 Protein, Urine Negative Negative Trace (A) Urobilinogen 0.2-1.0 EU/dL 1+ (A) 1.0 EU/dL Nitrites Negative Negative Negative Leukest Negative 2+ (A) 1+ (A) WBC, Urine 0-5 /HPF 0-5 /HPF 0-5 /HPF RBC, Urine 0-2 /HPF 0-3 /HPF 0-2 /HPF Bacteria Negative /HPF Negative Epithelial Cells /HPF Few None Seen Hyaline Cast 0 /LPF 1-3 /LPF (A) Protein, Total 6.3 - 8.0 g/dL 6.9 6.6 6.8 Albumin 3.9 - 4.9 g/dL 4.6 4.1 4.3 Calcium 8.5 - 10.2 mg/dL 9.9 9.2 9.5 Bilirubin, Total 0.2 - 1.3 mg/dL 0.2 0.2 0.3 Alkaline Phosphatase 38 - 113 U/L 48 54 49 AST 14 - 40 U/L 32 39 20 ALT 10 - 54 U/L 53 43 25 Glucose 74 - 99 mg/dL 91 105 (H) 80 BUN 9 - 24 mg/dL 31 (H) 33 (H) 25 (H) Creatinine 0.73 - 1.22 mg/dL 1.42 (H) 1.30 (H) 1.31 (H) Sodium 136 - 144 mmol/L 140 141 140 Potassium 3.7 - 5.1 mmol/L 4.8 4.5 5.2 (H) Chloride 97 - 105 mmol/L 99 101 103 CO2 22 - 30 mmol/L 24 25 24 Anion Gap 9 - 18 mmol/L 17 15 13 eGFR >=60 mL/min/1.73m 51 (L) 57 (L) 56 (L) Total Cholesterol, Nonfasting <200 mg/dL 147 139 138 Triglycerides, Nonfasting <150 mg/dL 235 (H) 236 (H) 146 HDL Cholesterol, Nonfasting >39 mg/dL 34 (L) 37 (L) 37 (L) LDL Cholesterol, Nonfasting <100 mg/dL 66 55 72 Non HDL Cholesterol, Nonfasting <130 mg/dL 113 102 101 VLDL Cholesterol, Nonfasting <30 mg/dL 47 (H) 47 (H) 29 Total Chol/HDL Ratio, Nonfasting <5.10 mg/dL 4.32 3.76 3.73 LDL/HDL Ratio, Nonfasting <2.54 mg/dL 1.94 1.49 1.95 Creatinine, Ur Random (UCRR) 20.0 - 300.0 mg/dL 150.6 142.9 Albumin, Urine Random mg/L <12.0 <12.0 Albumin/Creat Ratio <30 mg/g <8 <8 Hemoglobin A1C 4.3 - 5.6 % 6.3 (H) 5.9 (H) Estimated Average Glucose mg/dL 134 123 PSA <2.60 ng/mL 3.02 (H) 1.92 1.87 PSA, Percent Free % 31 Folate >4.7 ng/mL 8.4 Vitamin B12 232 - 1,245 pg/mL 1,252 (H) 1,236 1,234 Magnesium 1.7 - 2.3 mg/dL 1.8 1.6 (L) TSH 0.270 - 4.200 mIU/L 1.680 A/P ASSESSMENT/PLAN: 1. Medicare annual wellness visit, subsequent - ICD9: V70.0, ICD10: Z00.00 (primary diagnosis) - Counseled on healthy diet and regular exercise - Discussed need for and benefit of weight loss. BMI 35.93 kg/(m^2) - Follow up for annual exam in one year - discussed RSV, COVID and Tdap vaccinations. 2. Type 2 diabetes mellitus with diabetic polyneuropathy, without long-term current use of insulin (HCC) - ICD9: 250.60, 357.2, ICD10: E11.42 - Controlled - Improving control - Continue current medications - Counseled on healthy diet and regular exercise - Discussed need for and benefit of weight loss. BMI 35.93 kg/(m^2) - METFORMIN 1,000 MG TABLET 3. Diabetic eye exam (HCC) - ICD9: V72.0, 250.00, ICD10: Z01.00, E11.9 - up to date 4. Essential hypertension, benign - ICD9: 401.1, ICD10: I10 - Uncontrolled - Continue current medications - Recommend home blood pressure monitoring, to bring results to next visit - Encouraged sodium restriction, DASH or Mediterranean diet - Recommend regular aerobic exercise - Follow up in 3 weeks for hypertension visit - LOSARTAN 50 MG TABLET 5. Mixed hyperlipidemia - ICD9: 272.2, ICD10: E78.2 - Controlled - Continue current medications - Counseled on healthy diet and regular exercise - SIMVASTATIN 10 MG TABLET 6. GERD without esophagitis - ICD9: 530.81, ICD10: K21.9 - Continue treatment with Prilosec 40 mg QD 7. Coronary artery disease due to lipid rich plaque - ICD9: 414.00, 414.3, ICD10: I25.10, I25.83 - clinically stable no changes needed. 8. Bilateral carotid artery stenosis - ICD9: 433.10, 433.30, ICD10: I65.23 - cont current Tx. 9. Bilateral leg edema - ICD9: 782.3, ICD10: R60.0 - cont use of support socks. Also encouraged elevating feet while sitting. 10. Stage 3a chronic kidney disease (HCC) - ICD9: 585.3, ICD10: N18.31 - stable will cont to monitor with being on NSAID. This was discussed. 11. Urge incontinence - ICD9: 788.31, ICD10: N39.41 Cont - OXYBUTYNIN CHLORIDE ER 10 MG TABLET,EXTENDED RELEASE 24 HR 12. B12 deficiency - ICD9: 266.2, ICD10: E53.8 - cont replacement. 13. SOLER (nonalcoholic steatohepatitis) - ICD9: 571.8, ICD10: K75.81 - stable will cont to monitor since patient is taking tylenol as needed. This was discussed. 14. Neuropathy - ICD9: 355.9, ICD10: G62.9 - cont the gabapentin. 15. Obesity, Class II, BMI 35-39.9 - ICD9: 278.00, ICD10: E66.9 - patient has been eating less and has lost some weight. 16. Obstructive sleep apnea syndrome - ICD9: 327.23, ICD10: G47.33 - wearing CPAP. No changes. 17. Elevated PSA - ICD9: 790.93, ICD10: R97.20 - recent lab was normal. 18. Cervical myelopathy (HCC) - ICD9: 721.1, ICD10: G95.9 - stable 19. Anemia of chronic disease - ICD9: 285.29, ICD10: D63.8 - stable 20. Memory difficulties - ICD9: 780.93, ICD10: R41.3 - seeing neuro. Possible Parkinson's. 21. Advance directive discussed with patient - ICD9: V65.49, ICD10: Z71.89 - up to date 22. Hypomagnesemia - ICD9: 275.2, ICD10: E83.42 - handout given to increase Mg in diet. Requested Prescriptions Signed Prescriptions Disp Refills omeprazole (PRILOSEC) 40 mg capsule 90 capsule 1 Sig: Take 1 capsule by mouth once daily. metFORMIN (GLUCOPHAGE) 1,000 mg tablet 180 tablet 1 Sig: Take 1 tablet by mouth two times a day with meals. oxybutynin ER (DITROPAN XL) 10 mg 24 hr tablet 90 tablet 1 Sig: Take 1 tablet by mouth once daily. For overactive bladder losartan (COZAAR) 50 mg tablet 90 tablet 1 Sig: Take 1 tablet by mouth once daily. simvastatin (ZOCOR) 10 mg tablet 90 tablet 1 Sig: Take 1 tablet by mouth daily at bedtime. F/u 3 weeks HTN med check. F/u 6 months routine check CMP, A1c, Mg, Lipid, CBC prior I spent a total of 40 minutes on the date of the service which included preparing to see the patient, [id number] patient care, completing clinical documentation, performing a medically appropriate examination, counseling and educating the patient/family/caregiver and ordering medications, tests, or procedures. Patient was asked at end of visit if they had any questions or input regarding the plan of care we had discussed. Yosef Whitaker MD documented in this encounter [facility] 02-13-2023 Note HNO ID: [id number] Author: Stephanie Simpson I, MD Service: ? Author Type: Physician Type: Progress Notes Filed: 02/13/2023 11:34 AM Note Text: NEUROSURGERY FOLLOW UP OFFICE NOTE Chair, Clinical Neurosciences Director, Spinal Neurosurgery [facility] Date of visit: February 13, 2023 Patient Name: Mr.Donald Neema Espino Date of : 1945 Current Age: [age] year old Sex: male MRN/E# [id number] Last Office Visit: 01/16/2023 Chief Complaint: No chief complaint on file. SURGERY: L3-4 laminectomy on 07/12/2022 Pre-Surgical Symptoms: Fatigue in his legs resulting in gait and balance issues. Symptoms appeared claudicant in nature Past Medical/Surgical History: The patient has a history of arthritis, Vitamin B12 deficiency, CAD, esophageal stenosis, HLD, Obesity (39.00), Neuropathy, CKD, DM2(HgbA1c 6.3% 01/01/2022) . He has a prior history of low back surgery. +ASA Smoking: Former Alcohol Use: occasional HPI: Patient was discharged from [facility] on 07/19/2022 to an acute rehab facility with prescription for Keflex x7 days. He presented for his routine 2 week post operative visit with Marisa Ilgesias CNP on 07/26/2022 where he had been participating in therapy at rehab in [place]. He felt like he was gradually gaining strength in lower extremities and was ambulating with wheeled walker. Low back pain was tolerable with use of Tylenol. His incision had a small < 1cm area of superficial dehiscence at proximal aspect of incision with mild erythema, no drainage. He was started on doxycyline for 7 days as well as using xeroform and gauze to cover incision. Activity restrictions were enforced and he was requested to follow up in 4 weeks. He last presented to the office 08/27/2022 for a 6 week post operative visit. He stated that he had been doing well since his last visit. He reported mild back and hip pain when he first got up in the morning. He felt that the strength in his legs was slowly coming back. He did still get fatigued easily. He had been home since 08/01/2022 and had not been in physical therapy since returning home from rehab. His incision was dry and intact. There was some mild erythema and scabbing at the bottom of his incision. Denied any drainage, fevers, chills. He was taking Tylenol for pain with some relief. He was asked to keep an eye on his incision and let us know if it worsened. He was asked to undergo a course of PT for balance and gait training as well as core muscle strengthening. He presented to the office 10/17/2022 for a 3 month post operative visit. He had been participating in PT since his last visit. He presented with his and using rollator walker for ambulation. He denied any back pain. He had been participating in PT for balance/gait and had slow progress with improvement of this. He had new right hip pain and right knee pain that he had been following with his PCP for and undergoing workup. He thought this may be contributing to his slow progress with PT. I recommended we continue with therapy but plan to regroup in 3 months time. If he continued to have balance gait issues we may consider imaging his spine further both through the surgical area as well as above. He presented to the office 01/16/2023 for a routine 6 month post operative visit. He denied any new pain. He stated he completed physical therapy as recommended with symptom improvement. His stated she did not agree and she did not see improvement in his weakness. Denied any new symptoms or bowel/bladder dysfunction. He reported some redness around incision site was noticed by his jogger operator. No active drainage, fevers, or warmth around incision. He appeared to have plateaued and complained of persistent balance gait issues. His back pain however had resolved but with his persistent balance issues I recommended we obtain imaging of the spine higher up in cervical thoracic spine to rule out that there were a contributing issue there. He presents to the office today for follow up and image review. He states he continues to be frustrated by difficulties ambulating. He was seen by neurology about a week ago. They thought perhaps he may have some early Parkinson's which is contributing to the gait issues. They were not ready to commit to that diagnosis yet. Symptoms: subjective weakness BLE PREVIOUS CONSERVATIVE TREATMENTS: PT/OT: 08/29/2022, 09/05, 09/07, 10/03, 10/09, 10/10, 10/12, 10/17, 10/19, 10/24, 10/26, 10/30, 11/08, 11/14, 8/, 11/28, 12/05 Gabapentin PREVIOUS SURGERY: Low back surgery [place] [address] To in [place] PAIN EVALUATION No data found in the last 1 encounters. PAST MEDICAL HISTORY Diagnosis Date Advance directive discussed with patient 01/01/2022 Discussed 12/2021 Arthritis B12 deficiency 04/06/2015 Bilateral leg edema 06/28/2021 Coronary artery disease Diabetic eye exam (HCC) 11/01/2013 Last done:05/20/2018 Diverticulosis of large (more content not included)... [facility] 02-13-2023 History of Present illness Narrative NEUROSURGERY FOLLOW UP OFFICE NOTE Chair, Clinical Neurosciences Director, Spinal Neurosurgery [facility] Date of visit: February 13, 2023 Patient Name: Mr.Donald Neema Espino Date of : 1945 Current Age: [age] year old Sex: male MRN/E# [id number] Last Office Visit: 01/16/2023 Chief Complaint: No chief complaint on file. SURGERY: L3-4 laminectomy on 07/12/2022 Pre-Surgical Symptoms: Fatigue in his legs resulting in gait and balance issues. Symptoms appeared claudicant in nature Past Medical/Surgical History: The patient has a history of arthritis, Vitamin B12 deficiency, CAD, esophageal stenosis, HLD, Obesity (39.00), Neuropathy, CKD, DM2(HgbA1c 6.3% 01/01/2022) . He has a prior history of low back surgery. +ASA Smoking: Former Alcohol Use: occasional HPI: Patient was discharged from [facility] on 07/19/2022 to an acute rehab facility with prescription for Keflex x7 days. He presented for his routine 2 week post operative visit with Marisa Iglesias CNP on 07/26/2022 where he had been participating in therapy at rehab in [place]. He felt like he was gradually gaining strength in lower extremities and was ambulating with wheeled walker. Low back pain was tolerable with use of Tylenol. His incision had a small < 1cm area of superficial dehiscence at proximal aspect of incision with mild erythema, no drainage. He was started on doxycyline for 7 days as well as using xeroform and gauze to cover incision. Activity restrictions were enforced and he was requested to follow up in 4 weeks. He last presented to the office 08/27/2022 for a 6 week post operative visit. He stated that he had been doing well since his last visit. He reported mild back and hip pain when he first got up in the morning. He felt that the strength in his legs was slowly coming back. He did still get fatigued easily. He had been home since 08/01/2022 and had not been in physical therapy since returning home from rehab. His incision was dry and intact. There was some mild erythema and scabbing at the bottom of his incision. Denied any drainage, fevers, chills. He was taking Tylenol for pain with some relief. He was asked to keep an eye on his incision and let us know if it worsened. He was asked to undergo a course of PT for balance and gait training as well as core muscle strengthening. He presented to the office 10/17/2022 for a 3 month post operative visit. He had been participating in PT since his last visit. He presented with his and using rollator walker for ambulation. He denied any back pain. He had been participating in PT for balance/gait and had slow progress with improvement of this. He had new right hip pain and right knee pain that he had been following with his PCP for and undergoing workup. He thought this may be contributing to his slow progress with PT. I recommended we continue with therapy but plan to regroup in 3 months time. If he continued to have balance gait issues we may consider imaging his spine further both through the surgical area as well as above. He presented to the office 01/16/2023 for a routine 6 month post operative visit. He denied any new pain. He stated he completed physical therapy as recommended with symptom improvement. His stated she did not agree and she did not see improvement in his weakness. Denied any new symptoms or bowel/bladder dysfunction. He reported some redness around incision site was noticed by his jogger operator. No active drainage, fevers, or warmth around incision. He appeared to have plateaued and complained of persistent balance gait issues. His back pain however had resolved but with his persistent balance issues I recommended we obtain imaging of the spine higher up in cervical thoracic spine to rule out that there were a contributing issue there. He presents to the office today for follow up and image review. He states he continues to be frustrated by difficulties ambulating. He was seen by neurology about a week ago. They thought perhaps he may have some early Parkinson's which is contributing to the gait issues. They were not ready to commit to that diagnosis yet. Symptoms: subjective weakness BLE PREVIOUS CONSERVATIVE TREATMENTS: PT/OT: 08/29/2022, 09/05, 09/07, 10/03, 10/09, 10/10, 10/12, 10/17, 10/19, 10/24, 10/26, 10/30, 11/08, 11/14, 11/21, 11/28, 12/05 Gabapentin PREVIOUS SURGERY: [place] back [place] [address] [place] in [place] PAIN EVALUATION No data found in the last 1 encounters. PAST MEDICAL HISTORY Diagnosis Date Advance directive discussed with patient 01/01/2022 Discussed 12/2021 Arthritis B12 deficiency 04/06/2015 Bilateral leg edema 06/28/2021 Coronary artery disease Diabetic eye exam (HCC) 11/01/2013 Last done:05/20/2018 Diverticulosis of large intestine without hemorrhage Elevated LFTs 12/11/2016 Elevated PSA 12/30/2018 Esophageal stenosis 08/20/2016 Essential hypertension, benign 01/25/2005 Ex-smoker 08/08/2016 US: 08/15/2016 no AAA Fatty liver 09/28/2008 CT showed diffuse fatty infiltration (incidental on CT chest) Mildly elevated LFT's since 01/26 GERD without esophagitis 06/27/2020 Internal hemorrhoids without mention of complication Leg pain, bilateral 12/28/2020 Living will on file 01/01/2022 DPA: Stacey () Medicare annual wellness visit, subsequent 12/18/2017 Medicare Part B: 06/20/2010 last done: 12/30/2018 Mixed hyperlipidemia 11/01/2013 Morbid obesity due to excess calories (HCC) 04/06/2015 Neuropathy 10/31/2013 Had low back surgery 2010 for disc herniation and has had numbness in his toes since then. Obesity, Class II, BMI 35-39.9 04/06/2015 Obstructive sleep apnea syndrome 04/06/2015 CPAP with good success Pain of both hip joints 02/06/2019 PMH - PAST MEDICAL HISTORY OF 02/2008 release nerves in back Seborrheic keratoses, inflamed 08/10/2015 Left temporal and right check Spinal stenosis of lumbar region Spinal stenosis of lumbar region Stage 3a chronic kidney disease ([facility]) 02/01/2022 Type 2 diabetes mellitus with diabetic polyneuropathy, without long-term current use of insulin ([facility]) 12/12/2015 Urge incontinence 08/10/2015 VENTRICULAR TACHYCARDIA, PAROXYSMAL 07/04/2005 PAST SURGICAL HISTORY Procedure Laterality Date APPENDECTOMY BACK SURGERY HX 2007 BACK SURGERY HX 07/12/2022 L3-4 Laminectomy CHOLECYSTECTOMY Cholecystectomy COLONOSCOPY FLX DX W/COLLJ SPEC WHEN PFRMD 11/07/2005 Colonoscopy recheck 10 yrs COLONOSCOPY FLX DX W/COLLJ SPEC WHEN PFRMD 07/29/2017 Colonoscopy EGD 05/16/2020 ESOPHAGOGASTRODUODENOSCOPY TRANSORAL DIAGNOSTIC 03/23/2013 EGD EYE SURGERY HX FECAL OCCULT BLOOD TEST 12/14/2016 negative PAST SURGICAL HISTORY OF 03/2008 lumbar decompression, [facility] PAST SURGICAL HISTORY OF 09/2014 left cataract PAST SURGICAL HISTORY OF 2007 right cataract PAST SURGICAL HISTORY OF Left 09/02/2018 partial medial and lateral menisectomy, loose body removal. TONSILLECTOMY HX FAMILY HISTORY Problem Relation Age of Onset Coronary Artery Disease Father age 68; heavy EtOH use Alcohol/Drug Father alcoholism Diabetes Paternal Grandmother Prostate Cancer Other none Colon Cancer Other none known Dementia Paternal Uncle identicle twin to pt's father ALLERGIES Allergen Reactions Chlorhexidine Gluco* Shortness of Breath Lisinopril Cough Penicillins Intolerance thinks he has had PCN without complication Current Outpatient Medications Medication Sig Dispense Refill aspirin, enteric coated (ASPIRIN, ENTERIC COATED) 81 mg EC tablet Take 81 mg by mouth once daily. omeprazole (PRILOSEC) 40 mg capsule Take 1 capsule by mouth once daily. 90 capsule 1 metFORMIN (GLUCOPHAGE) 1,000 mg tablet Take 1 tablet by mouth twice daily with meals. 180 tablet 1 oxybutynin ER (DITROPAN XL) 10 mg 24 hr tablet Take 1 tablet by mouth once daily. For overactive bladder 90 tablet 1 losartan (COZAAR) 50 mg tablet Take 1 tablet by mouth once daily. 90 tablet 1 diclofenac, EC, (VOLTAREN) 75 mg EC tablet Take 1 tablet by mouth twice daily. For pain/inflammation. Take with food. 180 tablet 1 simvastatin (ZOCOR) 10 mg tablet Take 1 tablet by mouth daily at bedtime. 90 tablet 1 gabapentin (NEURONTIN) 100 mg capsule Take 2 capsules by mouth three times daily for 90 days. Along with your 800 mg three times a day for a total of 1000 mg three times a day. [address] (PROTONIX) 40 mg tablet Take 40 mg by mouth once daily. acetaminophen (TYLENOL) 325 mg tablet Take 1-2 tablets by mouth every 4 hours as needed for pain. CPAP/BIPAP/OTHER New set up: Settings 7 - 20 cm H2O, suitable mask per pt preference (nasal mask), chin strap, head gear, humidity, tubing, lifetime supplies. G47.33 FUAD 1 Each 0 gabapentin (NEURONTIN) 400 mg capsule Take 2 capsules by mouth three times daily for 180 days. 540 capsule 1 cyanocobalamin (VITAMIN B-12) 1,000 mcg tab Take 1 tablet by mouth once daily. 0 CPAP Use 10 cm in the nose daily at bedtime. 0 Current Facility-Administered Medications Medication Dose Route Frequency Provider Last Rate Last Admin perflutren lipid microspheres 1.3 mL in NaCl (PF) 0.9% 10 mL injection (DEFINITY) INTRAVENOUS DIRECTED PRLola Jones PA-C sodium chloride 0.9 % (flush) 10 mL (BD POSIFLUSH) 10 mL INTRAVENOUS DIRECTED Lola Sousa PA-C REVIEW OF SYSTEMS Review of Systems OBJECTIVE: There were no vitals taken for this visit. On examination in clinic he remains neurologically stable. Data Review IMAGING STUDIES: I reviewed MRIs of cervical and thoracic spine in clinic today. On cervical MRI imaging he has diffuse mild cervical spondylosis but no evidence of significant stenosis. No signal change in the cord. Likewise on thoracic imaging multilevel degeneration but no evidence of significant pathology. Assessment & Plan: In summary this gentleman's biggest complaint currently is out of balance gait issues. I suspect is a combination of potentially persistent nerve damage from preoperatively as well as perhaps a more peripheral neuropathy. Certainly no cord compression. No role for any further surgical intervention. Both him and his were pleased. As such I am to discharge him from routine follow-up with a plan to reassess should the need arise. The following portions of the patient's history were reviewed, confirmed, and updated as necessary: allergies, current medications, past family history, past medical history, past social history, past surgical history, problem list, HPI, and ROS obtained by others. Some elements may be copied from a previous office note and have been reviewed/updated where appropriate. All portions reflect current medical decision making from today. The clinical and radiographic findings as well as the risks, benefits and alternatives of treatment have been reviewed in detail with the patient. Advised to call the office if symptoms worsen or new symptoms develop. Patient expressed understanding and is in agreement with plan. Stephanie Simpson MD Chair, Clinical Neurosciences Director, Spinal Neurosurgery [facility] This note was partially generated using [employer] voice recognition system, and there may be some incorrect words, spellings, and punctuation that were not noted in checking the note before saving. documented in this encounter [facility] 02-13-2023 Note HNO ID: [id number] Author: William Salazar RT(R) Service: Radiology Author Type: Technologist Type: Progress Notes Filed: 02/13/2023 10:55 AM Note Text: Radiology Service Progress Note PATIENT NAME: Essie Espino DATE OF SERVICE: February 13, 2023 TIME: 10:54 AM PATIENT IDENTITY VERIFICATION COMPLETED USING TWO (2) IDENTIFIERS: Name and Date of confirmed by patient verbally. FALL SCREENING: Has the patient had 2 falls in the last year or 1 fall with injury or currently using an Ambulatory Assistive Device (Walker, Cane, Wheelchair, Crutches, etc.)? No PATIENT GENDER DATA: Male PATIENT RELEVANT IMPLANT DATA REVIEWED: Not Applicable RADIOLOGY DEPARTMENT: MR; Exam(s) Completed: Spine: Cervical spine and Thoracic spine PERIPHERAL IV DATA: Not applicable SIGNED BY: RT Yani(R) February 13, 2023 10:54 AM [facility] 02-08-2023 Miscellaneous Notes Lab orders placed. Meagan Valdovinos APRN.CNP Lab orders were cancelled Please file new ones. documented in this encounter [facility] 02-07-2023 Miscellaneous Notes The following approved medication requests have been transmitted electronically. Requested Prescriptions Signed Prescriptions Disp Refills gabapentin (NEURONTIN) 400 mg capsule 540 capsule 1 Sig: Take 2 capsules by mouth three times a day for 180 days. Authorizing Provider: YOSEF WHITAKER MD Patient has been identified by name and date of : Yes Requested Prescriptions Pending Prescriptions Disp Refills gabapentin (NEURONTIN) 400 mg capsule 540 capsule 1 Sig: Take 2 capsules by mouth three times a day for 180 days. RX INSTRUCTIONS: Patient aware RX will be sent to pharmacy. No need to notify patient. Amy Bueno MA Lorenza 07/2022 Nov 02/18/2023 Last refill: 07/2022 documented in this encounter [facility] 02-05-2023 Note HNO ID: [id number] Author: Jaylan Chino LPN Service: ? Author Type: ? Type: Progress Notes Filed: 02/05/2023 11:01 AM Note Text: Scan on 02/05/2023 9:04 AM by ProviderJuani PA-C: Consultation - Ophthalmology [facility] 02-05-2023 History of Present illness Narrative Scan on 02/05/2023 9:04 AM by ProviderJuani PAEsC: Consultation - Ophthalmology documented in this encounter [facility] 02-01-2023 Note [facility] 02-01-2023 Instructions Margot Bravo MD - 02/01/2023 4:41 PM EDT Try to stay physically active! Continue use of walker for safety. Repeat neuropsych testing with Dr. Zamarripa after 05/2023. documented in this encounter [facility] 02-01-2023 History of Present illness Narrative FOLLOW UP NOTE Subjective Essie Espino is a 77 year old male who presents for follow up. CC: Memory, gait Summary of prior care: Memory impairment, gait impairment, and urinary difficulty. His examination demonstrates impaired recall and multifactorial gait impairment. He has a history of lumbar spine disease / surgery, recommend getting MRI L-spine. Prior EMG for leg symptoms was negative, may be more central cause to his leg symptoms. Combination of urinary, gait, and memory symptoms with mild ventriculomegaly on CTH will get MRI Brain to evaluate for NPH / other source of gait impairment. Recommend neuropsych testing for further evaluation of memory impairment. 07/2022 now post-op L3-4 laminectomy, [employer] mild dysfunction, observe HPI Current Issues 1. Gait - Still shuffling - Not sure how much gait has improved since surgery - Finished therapy - Walking with a walker - Balance sometimes is poor - No falls - Sense of smell seems OK, no constipation, no dream enactment behavior 2. Memory - Seems a little worse since the last visit - Difficulty making a decision - Trouble adding up multiple playing cards Current Outpatient Medications Medication Sig Dispense Refill acetaminophen (TYLENOL) 325 mg tablet Take 1-2 tablets by mouth every 4 hours as needed for pain. aspirin, enteric coated (ASPIRIN, ENTERIC COATED) 81 mg EC tablet Take 81 mg by mouth once daily. CPAP/BIPAP/OTHER New set up: Settings 7 - 20 cm H2O, suitable mask per pt preference (nasal mask), chin strap, head gear, humidity, tubing, lifetime supplies. G47.33 FUAD 1 Each 0 CPAP Use 10 cm in the nose daily at bedtime. 0 cyanocobalamin (VITAMIN B-12) 1,000 mcg tab Take 1 tablet by mouth once daily. 0 diclofenac, EC, (VOLTAREN) 75 mg EC tablet Take 1 tablet by mouth twice daily. For pain/inflammation. Take with food. 180 tablet 1 gabapentin (NEURONTIN) 100 mg capsule Take 2 capsules by mouth three times daily for 90 days. Along with your 800 mg three times a day for a total of 1000 mg three times a day. 540 capsule 1 gabapentin (NEURONTIN) 400 mg capsule Take 2 capsules by mouth three times daily for 180 days. 540 capsule 1 losartan (COZAAR) 50 mg tablet Take 1 tablet by mouth once daily. 90 tablet 1 metFORMIN (GLUCOPHAGE) 1,000 mg tablet Take 1 tablet by mouth twice daily with meals. 180 tablet 1 omeprazole (PRILOSEC) 40 mg capsule Take 1 capsule by mouth once daily. 90 capsule 1 oxybutynin ER (DITROPAN XL) 10 mg 24 hr tablet Take 1 tablet by mouth once daily. For overactive bladder [address] (PROTONIX) 40 mg tablet Take 40 mg by mouth once daily. simvastatin (ZOCOR) 10 mg tablet Take 1 tablet by mouth daily at bedtime. 90 tablet 1 Current Facility-Administered Medications Medication Dose Route Frequency Provider Last Rate Last Admin perflutren lipid microspheres 1.3 mL in NaCl (PF) 0.9% 10 mL injection (DEFINITY) INTRAVENOUS DIRECTED PRLola Jones PA-C sodium chloride 0.9 % (flush) 10 mL (BD POSIFLUSH) 10 mL INTRAVENOUS DIRECTED Lola Sousa PA-C REVIEW OF SYSTEMS His ROS was positive for that mentioned in the HPI. Otherwise a 10-point ROS was completed and was negative. Objective OBJECTIVE 02/01/23 1608 BP: 162/80 BP Site: Right Arm BP Position: Sitting BP Cuff Size: Large Adult Pulse: (!) 58 Weight: 102.5 kg (226 lb) Height: 166.4 cm (5' 5.5 ) General: General Appearance: Well appearing, alert, in no acute distress, well-hydrated, well nourished. Head: Normocephalic Neck: Supple Heart: RRR Neurologic Exam: Mental Status: He is alert. Reg 3/3 HCB, fri, , age 77, WORLD -> DLROW, naming normal, makes a couple errors with sentence repetition, DR 2/3 -> 0/1 -> 04/22. Cranial Nerves: Extraocular movements show full and smooth pursuits. No nystagmus. Visual jimenez are full to confrontation. Facial activation is symmetric. Hearing is intact to conversation. There is mild hypomimia. There is mild hypophonia. There is no dysarthria. Tongue is midline. Palate elevates symmetrically. Shoulder shrug is normal. Motor: Muscle bulk is normal. Rapid alternating movements are normal. Muscle power is full. No tremor. Normal tone. Sensory: Intact to fine touch. Coordination: Finger to nose is smooth without ataxia. Gait/station: Stands with use of his arms. Mildly wider base. Mildly stooped posture. Foot both clear. Decreased stride length. Bilateral arm swing is present. Overall mostly normal gait just slower machelle. Has walker but walks the short distance without it. DATA REVIEW Actual films/image/tracing reviewed and summarized as follows: n/a Old records reviewed and summarized as follows: MRI L-spine 05/02/22 severe stenosis L3-4 MRI Brain 05/02/22 reviewed with patient, mod global atrophy, read more focal in anterior temporal lobes not that dramatically prominent in those areas compared to global atrophy Reviewed NSGY records B12 1236, folate [address] Zamarripa 06/15/22 mild dysfunction better than expected given history and imaging CTH 01/22/22 mild ventriculomegaly and atrophy B12 1236, folate 9, A1c 6.3, TSH 1.23, Syph neg, Cr 1.27 EMG 12/17/13 LLE comparison right - 1) Normal bilateral sural and superficial sensory responses; normal, symmetric H-reflexes. 2) Absence of left medial plantar response is within acceptable limits of normal for age or it may be technical finding. 3) Normal peroneal and tibial motor latencies, but decreased motor amplitudes on the left. The left tibial AH at the popliteal fossa response may be technical. The needle electrode examination was discontinued due to poor test tolerance/pain. No definitive evidence for a large fiber sensorimotor peripheral neuropathy, but these findings are insufficient for electrical diagnosis. Assessment/Plan ASSESSMENT & PLAN: Essie Espino is a 77 year old male with Memory impairment, gait impairment, and urinary difficulty. His examination demonstrates normal recall today and he is in a wheelchair being recently post-op lumbar laminectomy. 1. Memory difficulty - They note mildly worse since last visit - Plan at last visit was to repeat neuropsych >1 year, gave order to do so no sooner than 05/2023 - MRI with global atrophy maybe worse in temporal lobes - Memory labs normal 2. Gait impairment suspected to be due to lumbar stenosis - s/p L3-4 laminectomy without that much improvement - Finished PT - Continue use of walker Follow-up: 6 months Risks & Side Effects of Newly Prescribed Medication, Discussed with Patient: n/a Margot Bravo MD [facility] Neurology documented in this encounter [facility] 01-16-2023 Note HNO ID: [id number] Author: Stephanie Simpson I, MD Service: ? Author Type: Physician Type: Progress Notes Filed: 01/16/2023 12:15 PM Note Text: NEUROSURGERY FOLLOW UP OFFICE NOTE Chair, Clinical Neurosciences Director, Spinal Neurosurgery [facility] Date of visit: January 16, 2023 Patient Name: Mr.Donald Neema Espino Date of : 1945 Current Age: [age] year old Sex: male MRN/E# [id number] Last Office Visit: 10/17/2022 Chief Complaint: Patient presents with: Established Patient SURGERY: L3-4 laminectomy on 07/12/2022 Pre-Surgical Symptoms: Fatigue in his legs resulting in gait and balance issues. Symptoms appeared claudicant in nature Past Medical/Surgical History: The patient has a history of arthritis, Vitamin B12 deficiency, CAD, esophageal stenosis, HLD, Obesity (39.00), Neuropathy, CKD, DM2(HgbA1c 6.3% 01/01/2022) . He has a prior history of low back surgery. +ASA Smoking: Former Alcohol Use: occasional HPI: Patient was discharged from [facility] on 07/19/2022 to an acute rehab facility with prescription for Keflex x7 days. He presented for his routine 2 week post operative visit with Mraisa Iglesias CNP on 07/26/2022 where he had been participating in therapy at rehab in [place]. He felt like he was gradually gaining strength in lower extremities and was ambulating with wheeled walker. Low back pain was tolerable with use of Tylenol. His incision had a small < 1cm area of superficial dehiscence at proximal aspect of incision with mild erythema, no drainage. He was started on doxycyline for 7 days as well as using xeroform and gauze to cover incision. Activity restrictions were enforced and he was requested to follow up in 4 weeks. He last presented to the office 08/27/2022 for a 6 week post operative visit. He stated that he had been doing well since his last visit. He reported mild back and hip pain when he first got up in the morning. He felt that the strength in his legs was slowly coming back. He did still get fatigued easily. He had been home since 08/01/2022 and had not been in physical therapy since returning home from rehab. His incision was dry and intact. There was some mild erythema and scabbing at the bottom of his incision. Denied any drainage, fevers, chills. He was taking Tylenol for pain with some relief. He was asked to keep an eye on his incision and let us know if it worsened. He was asked to undergo a course of PT for balance and gait training as well as core muscle strengthening. He presented to the office 10/17/2022 for a 3 month post operative visit. He had been participating in PT since his last visit. He presented with his and using rollator walker for ambulation. He denied any back pain. He had been participating in PT for balance/gait and had slow progress with improvement of this. He had new right hip pain and right knee pain that he had been following with his PCP for and undergoing workup. He thought this may be contributing to his slow progress with PT. I recommended we continue with therapy but plan to regroup in 3 months time. If he continued to have balance gait issues we may consider imaging his spine further both through the surgical area as well as above. He presents to the office today for a routine 6 month post operative visit. He denies any new pain. He states he completed physical therapy as recommended with symptom improvement. His states she does not agree and she does not see improvement in his weakness. Denies any new symptoms or bowel/bladder dysfunction. He states some redness around incision site was noticed by his jogger operator. No active drainage, fevers, or warmth around incision. He presents for follow up an plan of care. Symptoms: subjective weakness BLE PREVIOUS CONSERVATIVE TREATMENTS: PT/OT: 08/29/2022, 09/05, 09/07, 10/03, 10/09, 10/10, 10/12, 10/17, 10/19, 10/24, 7, 10/30, 11/08, 11/14, 8/, 8/9, 8 Gabapentin PREVIOUS SURGERY: [place] back surgery [place] [address] To in [place] PAIN EVALUATION No data found in the last 1 encounters. PAST MEDICAL HISTORY Diagnosis Date Advance directive discussed with patient 01/01/2022 Discussed 12/2021 Arthritis B12 deficiency 04/06/2015 Bilateral leg edema 06/28/2021 Coronary artery disease Diabetic eye exam (HCC) 11/01/2013 Last done:05/20/2018 Diverticulosis of large intestine without hemorrhage Elevated LFTs 12/11/2016 Elevated PSA 12/30/2018 Esophageal stenosis 08/20/2016 Essential hypertension, benign 01/25/2005 Ex-smoker 08/08/2016 US: 08/15/2016 no AAA Fatty liver 09/28/2008 CT showed diffuse fatty infiltration (incidental on CT chest) Mildly elevated LFT's since 01/26 GERD without esophagitis 06/27/2020 Internal hemorrhoids without mention of complication Leg pain, bilateral 12/28/2020 Living will on file 01/01/2022 DPA: Stacey () Medicare annual wellness visit, subsequent 12/18/2017 Medicare Par (more content not included)... [facility] 12-05-2022 Note [facility] 12-05-2022 History of Present illness Narrative Episode Visit Count: 15 Therapist That Will Accept/Oversee The Plan Of Care: Malcolm Land PT Start of Care Date: 10/19/22 Onset Date: 10/12/22 (chronic knee and hip pain but increased significantly one week ago without explanation.) Plan of Care Certification Date: 11/08/22 Next Certification Due Date: 12/06/22 Patient Identified by Name and Date of : Yes REHABILITATION AND SPORTS THERAPY PHYSICAL THERAPY DISCONTINUANCE OF CARE PLAN OF CARE UPDATE: Assessment: Essie Bethea Shwetastephy is discontinued from Physical Therapy services due to maximal benefit. and Patient/Clinician mutual decision to discontinue current plan of care.. Patient was seen for 15 visits from Start of Care Date: 10/19/22 to 12/05/2022 and treatment included: Therapeutic exercise, Neuromuscular re-education, Therapeutic activities, Self-prison management, Gait training, Patient/Family/Caregiver Education, and General conditioning. Updated: 10/03/22 and 11/08/22 and 12/05/22 Goals for Episode of Care: created on 08/29/22 through 10/24/22 Patient will report no falls. - MET Improve score on Timed Up and Go Test to 7-12 seconds to reflect decreased fall risk. - Partially MET Improve score on 30 Second Chair Stand to 11+ repetitions to reflect decreased fall risk. - Partially MET Improve performance on 4 Stage Balance Test to 10 second tandem and 14 second SLS to reflect decreased fall risk. - Partially MET [place] in home exercise program including cardiovascular exercise. - MET Patient will demonstrate independent and proper use of assisstive device to allow for improved walking quality and safety therefore reducing the risk of falls. - MET Perform stairs with decreased report of symptoms and improved safety. - MET Patient Goals: increase LE strength, improve balance and enable traveling and mowing - Partially MET Updated: 11/08/22 and 12/05/22 Newly added Goals: 10/19/2022 Goals for Episode of Care: created on 10/19/22 through 11/16/22 Independent in home exercises. - MET Patient will decrease pain rating by 2 points to meet minimal clinical important difference for numeric pain rating scale. - MET Restore pain-free lumbar ROM to WFL to allow for improved standing Tolerance. - Partially MET Stand / Walk without limitations, without pain/symptoms. - Partially MET Patient will increase flexibility of R hip IR to equal unaffected extremity/side to improve mechanics and decrease pain. - MET Patient Goals: eliminate symptoms of pain and regain prior functional status. - Partially MET SUBJECTIVE: Pt reports that overall he has improved since starting PT. He denies any falls and reports compliance with HEP 1x day. He uses rollator most of the time when he remembers it. He acknowledges that he is more stable and walks much better with the rollator. He reports that his standing and walking tolerance is improved but still limited, especially stationary standing. Pain: Pain Pain Level: 0 Pain Location: Knee - Right Description: (no knee pain to start today) Frequency: Intermittent Additional Pain Information : Location 2 Pain Level 2: (-06/01) Pain Location 2: Low Back/Lumbar Spine- Midline Description 2: Aching Frequency 2: Intermittent Post Treatment Pain Post Treatment Pain Level: No Change PROMIS Scales Higher is Better 11/28/2022 10/29/2022 09/30/2022 Phys Func - Score 42 (mild dysfunction) 32 (moderate dysfunction) 34 (moderate dysfunction) Phys Func - Percentile 21 % 4 % 5 % Self-Eff Symptom - Score 43 (Average) 39 (Low) 49 (Average) Self-Eff Symptom - Percentile 24 % 14 % 46 % T-scores: mean of general population = 50. 5 points is clinically meaningfully difference Percentiles provide an indication of how the patient's score ranks in relation to the general population. Higher percentile rankings indicate better function/quality of life. 50th percentile is the average of the general population and indicates half of respondents had a worse score. OBJECTIVE MEASURES WITH LEVEL OF FUNCTION: Lumbar Spine AROM Lumbar Flexion: Normal Lumbar Extension: Major limitation Lumbar R Side-Bend: Normal Lumbar L Side-Bend: Normal Lumbar R Rotation: Normal Lumbar L Rotation: Normal Lumbar Spine AROM Comments: no pain with AROM. Pt felt that AROM actually relieved his pain. LE Flexibility Flexibility: Piriformis Flexibility R Piriformis Flexibility: 40 LE Strength Trunk Strength: Reported and demonstrated functional improvements indicate that he is making slow progress with strength. Gait Gait Observation: Pt arrives with safe and correct use of rollator but he does lack consistency of use. Functional Performance Test Results Assistive Device: Rollator 30 Second Chair Stand Test: 8 reps Timed Up and Go (sec): 17 sec (with rollator) Timed Up and Go - Condition 2 (sec) : 13 (no device) 4 Stage Balance Test Tandem base of support (sec): 30 sec Single leg stance - right (sec): 4 sec Single leg stance - left (sec): 4 sec TREATMENT: Therapeutic Exercise: 1: repeated sit to stand x7 and x10 as test and treatment 2: supine R piriformis stretching 3x30 seconds 3: supine SKTC 3x30 seconds 4: Re-assessment results reviewed with patient and used as rationale for d/c recommendations. 5: HEP was thoroughly reviewed and continuation encouraged to tolerance. All details of HEP reviewed with patient and his . Pt requested a second copy of HEP but his insists that they have all of his handouts at home. 6: Pt agreed to continue with HEP. Skilled Intervention: Patient was educated in proper exercise technique and purpose for exercises. Skilled judgment was provided in selection of appropriate interventions. Correct performance of therapeutic exercises was facilitated with verbal, visual, and tactile cuing. Patient education as noted. Neuromuscular Re-Education: 1: TUG, repeated sit to stand, NBOS, tandem and B SLS balance tests completed. 2: Re-assessment results were shared with pt and his . 3: Based on the results of re-assessment, pt was advised to continue with use of rollator at all times and to stay as active as he can. The benefits of using rollator explained and the risks of not using rollator explained. 4: Pt and his were urged to call with any future questions or concerns. Skilled Intervention: Skilled judgment used to assess appropriate program for balance and coordination activity. Ensured patient safety with use of gait belt. Billing KX Modifier : Therapist attests that services rendered are medically necessary. Therapeutic Exercise Treatment Minutes: 15 Neuromuscular Re-Education Treatment Minutes: 23 Total Treatment Time Minutes (timed/untimed): 38 Session Start Time : 1205 Session Stop Time : 1243 Malcolm Land PT documented in this encounter [facility] 11-28-2022 Note [facility] 11-28-2022 History of Present illness Narrative Episode Visit Count: 14 Therapist That Will Accept/Oversee The Plan Of Care: Malcolm Land PT Start of Care Date: 10/19/22 Onset Date: 10/12/22 (chronic knee and hip pain but increased significantly one week ago without explanation.) Plan of Care Certification Date: 11/08/22 Next Certification Due Date: 12/06/22 Patient Identified by Name and Date of : Yes REHABILITATION AND SPORTS THERAPY PHYSICAL THERAPY TREATMENT NOTE ASSESSMENT: Essie Espino tolerated the session with fatigue, expected muscle soreness, and no issues. He demonstrated improvements in balance and gait with increased exercise tolerance. The patient will continue to benefit from ongoing skilled physical therapy to progress toward set goals and for reassessment by supervising therapist. PLAN FOR NEXT VISIT: Continue with balance training, gait training and functional LE/trunk strengthening. Progress dynamic balance training as pt is able. Continue with use of red 6 inch darrell forward and side stepping. Re-assess for plan of care update. SUBJECTIVE: Pt reports that overall he is better with decreased R knee pain currently. 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 He uses standard yard tractor and his uses the zero turn mower. He reports compliance with HEP 1-2x day. Pain: Pain Pain Level: 0 Pain Location: Knee - Right Description: (Pt denies any pain to start today.) Frequency: Intermittent Post Treatment Pain Post Treatment Pain Level: No Change Post Treatment Symptoms: Pt reported that he got a good workout but he denied any increase in pain. OBJECTIVE MEASURES WITH LEVEL OF FUNCTION: Gait Gait Observation: Pt arrives with safe and correct use of rollator but he does present with short shuffling steps. This is correctable with verbal cues. TREATMENT: Therapeutic Exercise: 1: repeated sit to stand from chair 2x15 2: B forward step ups onto square blue foam x10 each 3: forward toe taps B alt onto dome side of BOSU x10 each Skilled Intervention: Patient was educated in proper exercise technique and purpose for exercises. Skilled judgment was provided in selection of appropriate interventions. Correct performance of therapeutic exercises was facilitated with verbal and visual cuing. Patient education as noted. Neuromuscular Re-Education: 1: NBOS eyes closed x30 seconds on square blue foam 2: NBOS eyes open x30 seconds on square blue foam 3: B tandem stance x30 seconds each 4: tandem ambulation x20 feet 5: marching x20 feet 6: retro ambulation 2x20 feet 7: balance board side to side x15 eyes open and x15 eyes closed 8: balance board front to back x15 eyes open and x15 eyes closed 9: stepping over 6 red 6 inch hurdles x2 passes forward and x1 pass each direction side stepping Skilled Intervention: Skilled judgment used to assess appropriate program for balance and coordination activity. Ensured patient safety with use of gait belt. Billing KX Modifier : Therapist attests that services rendered are medically necessary. Therapeutic Exercise Treatment Minutes: 20 Neuromuscular Re-Education Treatment Minutes: 25 Total Treatment Time Minutes (timed/untimed): 45 Session Start Time : 1645 Session Stop Time : 5 Malcolm Land PT documented in this encounter [facility] 11-21-2022 Note [facility] 11-21-2022 History of Present illness Narrative Episode Visit Count: 13 Therapist That Will Accept/Oversee The Plan Of Care: Malcolm Land PT Start of Care Date: 10/19/22 Onset Date: 10/12/22 (chronic knee and hip pain but increased significantly one week ago without explanation.) Plan of Care Certification Date: 11/08/22 Next Certification Due Date: 12/06/22 Patient Identified by Name and Date of : Yes REHABILITATION AND SPORTS THERAPY PHYSICAL THERAPY TREATMENT NOTE ASSESSMENT: Essie Espino tolerated the session with fatigue, expected muscle soreness, and no issues. He demonstrated difficulty with stepping over hurdles and improvements in gait, balance and endurance. The patient will continue to benefit from ongoing skilled physical therapy to progress toward set goals. PLAN FOR NEXT VISIT: Continue with balance training, gait training and functional LE/trunk strengthening. Progress dynamic balance training as pt is able. Continue with use of red 6 inch darrell forward and side stepping. SUBJECTIVE: Subjective: Pt reports that overall he is feeling better with increasing endurance. He denies any pain or problems following last session. He reports assisting his to mow the grass today He reports mowing on tractor for 45-60 minutes without problems today. Pain: Pain Pain Level: 3 Pain Location: Knee - Right Frequency: Intermittent Post Treatment Pain Post Treatment Pain Level: No Change Post Treatment Symptoms: After session, pt reported fatigue but denied any increase in pain. OBJECTIVE MEASURES WITH LEVEL OF FUNCTION: Gait Gait Observation: Pt arrives with safe and correct use of rollator but he does present with short shuffling steps. This is correctable with verbal cues. TREATMENT: Therapeutic Exercise: 1: repeated sit to stand from chair 2x12 2: forward step toe taps to dome of BOSU, bilateral and alternating 2x15 without UE assist outside of // bars 3: HEP was thoroughly reviewed and he was advised to continue. He was reminded not to attempt balance training exercises at home. 4: B forward step ups on dome side of BOSU x10 each in // bars Skilled Intervention: Patient was educated in proper exercise technique and purpose for exercises. Skilled judgment was provided in selection of appropriate interventions. Correct performance of therapeutic exercises was facilitated with verbal and visual cuing. Patient education as noted. Neuromuscular Re-Education: 1: NBOS eyes closed x30 seconds 2: NBOS eyes open with cervical rotation x30 seconds 3: B tandem stance x30 seconds each 4: tandem ambulation x20 feet 5: marching x20 feet 6: retro ambulation 2x20 feet 7: balance board side to side x15 eyes open and x15 eyes closed 8: balance board front to back x15 eyes open and x15 eyes closed 9: stepping over 6 red 6 inch hurdles x2 passes forward and x1 pass each direction side stepping Skilled Intervention: Skilled judgment used to assess appropriate program for balance and coordination activity. Ensured patient safety with use of gait belt and intermittent assist Patient education as noted. Billing KX Modifier : Therapist attests that services rendered are medically necessary. Therapeutic Exercise Treatment Minutes: 20 Neuromuscular Re-Education Treatment Minutes: 25 Total Treatment Time Minutes (timed/untimed): 45 Session Start Time : 1655 Session Stop Time : 1740 Malcolm Land PT documented in this encounter [facility] 11-15-2022 Note [facility] 11-15-2022 Note HNO ID: [id number] Author: Milka Stone RN Service: ? Author Type: ? Type: Progress Notes Filed: 11/15/2022 1:47 PM Note Text: Patient presents with: Left Foot - Established Patient, Diabetic Foot Care Right Foot - Established Patient, Diabetic Foot Care [facility] 11-15-2022 Miscellaneous Notes Request is being addressed in another encounter. Jaylan Chino LPN documented in this encounter [facility] 11-15-2022 Miscellaneous Notes [facility] 10/16/22 NOV 02/15/23 Jaylan Chino LPN documented in this encounter [facility] 11-14-2022 Note [facility] 11-14-2022 History of Present illness Narrative Episode Visit Count: 12 Therapist That Will Accept/Oversee The Plan Of Care: Malcolm Land PT Start of Care Date: 10/19/22 Onset Date: 10/12/22 (chronic knee and hip pain but increased significantly one week ago without explanation.) Plan of Care Certification Date: 11/08/22 Next Certification Due Date: 12/06/22 Patient Identified by Name and Date of : Yes REHABILITATION AND SPORTS THERAPY PHYSICAL THERAPY TREATMENT NOTE ASSESSMENT: Essie Espino tolerated the session with decreased symptoms and no issues. He demonstrated improvements in endurance, use of rollator and balance. The patient will continue to benefit from ongoing skilled physical therapy to progress toward set goals. PLAN FOR NEXT VISIT: Continue with balance training, gait training and functional LE/trunk strengthening. Progress dynamic balance training as pt is able. Consider use of red 6 inch hurdles. SUBJECTIVE: Patient Reason for Visit: Pt reports that overall he is feeling approximately the same as last visit. He reports that his biggest concerns are balance and stamina. He reports compliance with HEP 2x day but acknowledges that he should be doing this more often. He reports increased compliance with use of rollator and that he notices improved quality of gait when he uses rollator. Pain: Pain Pain Level: 3 Pain Location: Knee - Right Description: ( not bad ) Frequency: Intermittent Post Treatment Pain Post Treatment Pain Level: Better Post Treatment Symptoms: After session today, pt reported feeling better and more limber. OBJECTIVE MEASURES WITH LEVEL OF FUNCTION: Gait Gait Observation: Pt arrives with safe and correct use of rollator. TREATMENT: Therapeutic Exercise: 1: repeated sit to stand from chair 2x10 2: forward step toe taps to dome of BOSU, bilateral and alternating x20 in // bars 3: HEP was thoroughly reviewed and he was advised to continue. 4: B forward step ups on dome side of BOSU x5 each in // bars Skilled Intervention: Patient was educated in proper exercise technique and purpose for exercises. Skilled judgment was provided in selection of appropriate interventions. Correct performance of therapeutic exercises was facilitated with verbal, visual, and tactile cuing. Patient education as noted. Neuromuscular Re-Education: 1: NBOS eyes closed 2x30 seconds 2: NBOS eyes open with cervical rotation 2x30 seconds 3: B tandem stance 2x30 seconds 4: tandem ambulation x20 feet 5: marching x20 feet 6: retro ambulation 2x20 feet 7: balance board side to side x15 eyes open and x15 eyes closed 8: balance board front to back x15 eyes open and x15 eyes closed Skilled Intervention: Skilled judgment used to assess appropriate program for balance and coordination activity. Ensured patient safety with use of gait belt and intermittent assist prn. Billing Therapeutic Exercise Treatment Minutes: 15 Neuromuscular Re-Education Treatment Minutes: 30 Total Treatment Time Minutes (timed/untimed): 45 Session Start Time : 1200 Session Stop Time : 1250 Malcolm Land PT documented in this encounter [facility] 11-09-2022 Note [facility] 10-30-2022 Note [facility] 10-30-2022 History of Present illness Narrative Episode Visit Count: 4 Therapist That Will Accept/Oversee The Plan Of Care: Malcolm Land PT Start of Care Date: 10/19/22 Onset Date: 10/12/22 (chronic knee and hip pain but increased significantly one week ago without explanation.) Plan of Care Certification Date: 10/19/22 Next Certification Due Date: 11/16/22 Patient Identified by Name and Date of : Yes REHABILITATION AND SPORTS THERAPY PHYSICAL THERAPY TREATMENT NOTE ASSESSMENT: Essie Espino tolerated the session with fatigue and decreased symptoms. He demonstrated improvements in tolerance to balance exercises. The patient will continue to benefit from ongoing skilled physical therapy to progress toward set goals. PLAN FOR NEXT VISIT: PN SUBJECTIVE: Patient Reason for Visit: Pt states that his knee is hurting, but not as much today. Pt reports no pain in his back and new HEP is going well. Pain: Pain Pain Level: 3 Pain Location: Knee - Right Frequency: Continuous (but varies in intensity) Post Treatment Pain Post Treatment Pain Level: 0 Post Treatment Pain Location: Knee - Right OBJECTIVE MEASURES WITH LEVEL OF FUNCTION: Pt able to cross RLE over LLE with supine piriformis stretch. TREATMENT: Therapeutic Exercise: 1: SciFit StepOne seat #12 x6 minutes (Subjective collected. Assesed response to new HEP and order of doing exercise.) 2: STS 2x5 with UE 3: SKTC 3x30 seconds (support provided at R ankle to decrease strain/stretch felt on R knee.) 4: Supine R piriformis stretch 3x30 seconds (no assistance to cross R LE over LLE) Skilled Intervention: Patient was educated in proper exercise technique and purpose for exercises. Skilled judgment was provided in selection of appropriate interventions. Correct performance of therapeutic exercises was facilitated with verbal and visual cuing. Neuromuscular Re-Education: 1: NBOS on level ground x30 seconds EO 2: NBOS on level ground x30 seconds EC 3: Semi- Tandem stance 1x30 seconds B 4: Tandem stance RLE back: x8 seconds, L foot back x10 seconds Skilled Intervention: Skilled judgment used to assess appropriate program for balance and coordination activity. Ensured patient safety with use of gait belt. Billing Therapeutic Exercise Treatment Minutes: 27 Self-Care/Home Management Treatment Minutes: 15 Total Treatment Time Minutes (timed/untimed): 42 FERNY Green PT documented in this encounter [facility] 10-29-2022 Miscellaneous Notes The following approved medication requests have been transmitted electronically. Requested Prescriptions Signed Prescriptions Disp Refills diclofenac, EC, (VOLTAREN) 75 mg EC tablet 180 tablet 1 Sig: Take 1 tablet by mouth twice daily. For pain/inflammation. Take with food. Authorizing Provider: YOSEF WHITAKER MD Patient Stacey diaz tried to refill Diclofenac rx and was cancelled back in June. Asking if could have new rx sent to mail away pharmacy. He has been taking the medication since home from rehab. Please advise Patient has been identified by name and date of : Spouse phones for refill(s): Requested Prescriptions Pending Prescriptions Disp Refills diclofenac, EC, (VOLTAREN) 75 mg EC tablet 180 tablet 1 Sig: Take 1 tablet by mouth twice daily. For pain/inflammation. Take with food. Date of last office visit in primary care: 10/16/2022, has appt 02/15/2023 Last 2 Encounter Wt Readings: Date: Wt: 10/17/2022 103 kg (227 lb 1.2 oz) 10/16/2022 103 kg (227 lb) Previous labs/tests for medication: Blood Pressure: BUN (mg/dL) Date Value 08/13/2022 33 12/21/2020 23 Sodium (mmol/L) Date Value 08/13/2022 141 12/21/2020 140 Last 1 Encounter BP Readings: Date: BP: 10/19/2022 160/86 Please advise. Thank you. Madelin Swain LPN documented in this encounter [facility] 10-26-2022 Note [facility] 10-26-2022 History of Present illness Narrative Episode Visit Count: 10 Therapist That Will Accept/Oversee The Plan Of Care: Malcolm Land PT Start of Care Date: 10/19/22 Onset Date: 10/12/22 (chronic knee and hip pain but increased significantly one week ago without explanation.) Plan of Care Certification Date: 10/19/22 Next Certification Due Date: 11/16/22 Patient Identified by Name and Date of : Yes REHABILITATION AND SPORTS THERAPY PHYSICAL THERAPY TREATMENT NOTE ASSESSMENT: Essie Espino tolerated the session with fatigue and expected muscle soreness. He demonstrated difficulty with technique with piriformis stretch . The patient will continue to benefit from ongoing skilled physical therapy to progress toward set goals. PLAN FOR NEXT VISIT: Resume balance exercises as able. Continue with core stabilization and strengthening. SUBJECTIVE: Patient Reason for Visit: Pt states that his back was okay after last session. pt reports that his R knee is still bothering him today. Pain: Pain Pain Level: 4 Pain Location: Knee - Right Post Treatment Pain Post Treatment Pain Level: No Change Post Treatment Pain Location: Low Back/Lumbar Spine- Midline, Hip - Right, Knee - Right OBJECTIVE MEASURES WITH LEVEL OF FUNCTION: Response to exercises monitored throughout session TREATMENT: Therapeutic Exercise: 1: SciFit StepOne seat #12 x6 minutes (Subjective colleceted. Discussed pt moving more throuhgout the day.) 2: Seated alt marching 1x10 B (reviewed for HEP) 3: Seated LAQ 1x10 B (reviewed for HEP, pain in R knee) 4: Seated hip adduction with ball 1x10 (Reviewed for HEP) 5: STS 1x5 with wider JACKI 6: supine R SKTC 3x30 seconds 7: supine R piriformis stretching 3x30 seconds (multiple verbal and tactile cues given for technique) 8: Crunches in small range 2x10 9: *Updated with modifications for knee pain and emphasis on walking throughout the day. Skilled Intervention: Patient was educated in proper exercise technique and purpose for exercises. Reviewed and educated patient on additions/changes for home exercise program as above (*). Skilled judgment was provided in selection of appropriate interventions. Provided written instruction for home exercise program to facilitate proper performance and compliance. Correct performance of therapeutic exercises was facilitated with verbal and visual cuing. Billing Therapeutic Exercise Treatment Minutes: 50 Total Treatment Time Minutes (timed/untimed): 50 Betzaidaneema Hoskins, FERNY Bright PT documented in this encounter [facility] 10-24-2022 Note [facility] 10-24-2022 History of Present illness Narrative Episode Visit Count: 9 Therapist That Will Accept/Oversee The Plan Of Care: Malcolm Land PT Start of Care Date: 10/19/22 Onset Date: 10/12/22 (chronic knee and hip pain but increased significantly one week ago without explanation.) Plan of Care Certification Date: 10/19/22 Next Certification Due Date: 11/16/22 Patient Identified by Name and Date of : Yes REHABILITATION AND SPORTS THERAPY PHYSICAL THERAPY TREATMENT NOTE ASSESSMENT: Essie Espino tolerated the session with fatigue and expected muscle soreness. He demonstrated difficulty with TA activation via shoulder extension, as he wanted to hold his breath. The patient will continue to benefit from ongoing skilled physical therapy to progress toward set goals. PLAN FOR NEXT VISIT: Update HEP with specific details on when to do what exercises. SUBJECTIVE: Patient Reason for Visit: Pt feels he is getting around a little better today. Pt states less hip and knee pain, but still there. Pain: Pain Pain Level: 4 Pain Location: Low Back/Lumbar Spine - Right, Knee - Right Description: Sharp, Aching Frequency: Continuous (but varies in intensity) Post Treatment Pain Post Treatment Pain Location: Low Back/Lumbar Spine- Midline, Hip - Right, Knee - Right Post Treatment Symptoms: Pt stated he could feel it in his low back at the end of the session. OBJECTIVE MEASURES WITH LEVEL OF FUNCTION: TREATMENT: Therapeutic Exercise: 1: SciFit StepOne seat #12 x6 minutes (Discussed importance of continuing to complete exercises and to complete in moderation to not flare up knee and hip.) 2: supine R piriformis stretching 3x30 seconds 3: supine R SKTC 3x30 seconds 4: Supine TA activation via shoulder extension 2x10 5: Crunches in small range 2x10 Skilled Intervention: Patient was educated in proper exercise technique and purpose for exercises. Skilled judgment was provided in selection of appropriate interventions. Correct performance of therapeutic exercises was facilitated with verbal and visual cuing. Self-Fpc Management: 1: Education given to pt and about completing exercises in moderation to not flare up hip and knee but to keep pt mobile. Skilled Intervention: Skilled judgment in the selection of proper modification for activity of daily living/home management based on clinical presentation, deficits, and needs. Billing Therapeutic Exercise Treatment Minutes: 40 Self-Care/Home Management Treatment Minutes: 5 Total Treatment Time Minutes (timed/untimed): 45 Betzaida Hoskins, FERNY Land PT documented in this encounter [facility] 10-20-2022 Note [facility] 10-19-2022 Miscellaneous Notes Addended by: MALCOLM LAND on: 10/19/2022 11:41 PM Modules accepted: Orders documented in this encounter [facility] 10-19-2022 History of Present illness Narrative Episode Visit Count: 1 Therapist That Will Accept/Oversee The Plan Of Care: Malcolm Land PT Start of Care Date: 10/19/22 Onset Date: 10/12/22 (chronic knee and hip pain but increased significantly one week ago without explanation.) Plan of Care Certification Date: 10/19/22 Next Certification Due Date: 11/16/22 Patient Identified by Name and Date of : Yes REHABILITATION AND SPORTS THERAPY PHYSICAL THERAPY EVALUATION PLAN OF CARE: Assessment: Essie Espino presents with chief complaint of R hip, LB, thigh and knee pain that interferes with standing. He presents with impairments in ADL's, balance, gait, independence in exercise, overall function, range of motion, strength, and symptom management. PROMIS (Patient-Reported Outcomes Measurement Information System) scores were reviewed and physical function domain identified as a rehabilitation concern. Prognosis for therapy is Good due to: current objective clinical presentation, positive past response to therapy, good support system/ coping skills. He will benefit from skilled therapy services to meet the goals established for this plan of care as noted below. Classification Low Back Pain Subgroup Classification: Specific exercise subgroup: recommended visits 8. Specific Exercies Subgroup Classification based on: directional preference Goals for Episode of Care: created on 10/19/22 through 11/16/22 Independent in home exercises. Patient will decrease pain rating by 2 points to meet minimal clinical important difference for numeric pain rating scale. Restore pain-free lumbar ROM to WFL to allow for improved standing tolerance. Stand / Walk without limitations, without pain/symptoms. Patient will increase flexibility of R hip IR to equal unaffected extremity/side to improve mechanics and decrease pain. Patient Goals: eliminate symptoms of pain and regain prior functional status. Planned Interventions, Frequency, and Duration: Current Frequency: 2x/week Duration: 4 weeks Total Number of Visits Planned: 8 Planned Treatment Interventions: Therapeutic exercise (60123), Neuromuscular re-education (94941), Manual therapy (05030), Therapeutic activities (44666), Self-prison management (56170), Gait Training (59351), Patient/Family/Caregiver Education, Body Mechanics Training, General Conditioning PLAN FOR NEXT VISIT: Continue with gait and balance treatment, continue LE strengthening and the priority currently is pain management in R LE, especially R hip, thigh and knee. Focus on R piriformis and lumbar spine with flexion directional preference. Patient demonstrates good understanding of plan of care and treatment. The above goals and plan of care were discussed and agreed upon by patient/family. SUBJECTIVE: Essie Espino is a 77 year old male seen today for constant pain in R knee and hip that does not vary in intensity very much. He reports that prolonged stationary standing causes aggravation of his pain. He reports that the hike he took several weeks ago on uneven terrain caused significant pain in hip and knee but his reports that the pain began last week at grocery store without explanation. He reports that his current symptoms are in R low back and R knee globally, not point specific. He reports that prolonged standing causes his back to start hurting and then his knee starts to hurt. Patient Goals: eliminate symptoms of pain and regain prior functional status. Functional Limitations: standing Prior Level of Function: Independent without limitations Relevant History Past Relevant Surgical Conditions: (low back surgery 07/12/2022) Employment: Retired Home Environment Patient Lives With: Spouse Assistance Available: 24-Hour Home Type: [place] Entry To Home: Stairs, With Rail Number Of Stairs Into Home: 3 Tub/Shower Type: walk in shower with grab bars Equipment Owned: Rollator Intake Information: Prescription present Previous Treatment: Physical Therapy Red Flags Vertebral Fracture Red Flags: Age >70 Vertebral Fracture Clinical Reasoning: Proceed with caution due to the above (1-2) risk factors Abdominal Aortic Aneurysm Red Flags: ( I do have pain but I don't know where it is from ) Abdominal Aortic Aneurysm Clinical Reasoning: Proceed with caution Cancer Clinical Reasoning: No identified risk factors. Infection Clinical Reasoning: No identified risk factors. Cauda Equina Syndrome Clinical Reasoning: No identified risk factors. Red Flags - Cervical Cancer Clinical Reasoning: No identified risk factors. Infection Clinical Reasoning: No identified risk factors. Spine History Symptoms Location at Onset: Back, Thigh Symptoms Since Onset: Worsening Pain is Worse Always: Standing Pain is Better Sometimes: (medication) Previous Episodes: Yes Previous Spine Episodes: chronic low back pain Sleeping Position: Supine, Side lying right, Side lying left Sleep Affected by Pain: Pain keeps from falling asleep, Pain awakens Pain: Pain Pain Level: 4 Pain Location: Low Back/Lumbar Spine - Right, Knee - Right Description: Sharp, Aching, Dull Frequency: Continuous (but varies in intensity) Post Treatment Pain Post Treatment Pain Level: No Change PROMIS Scales Higher is Better 09/30/2022 08/29/2022 Phys Func - Score 34 (moderate dysfunction) 36 (moderate dysfunction) Phys Func - Percentile 5 % 8 % Self-Eff Symptom - Score 49 (Average) 41 (Average) Self-Eff Symptom - Percentile 46 % 18 % T-scores: mean of general population = 50. 5 points is clinically meaningfully difference Percentiles provide an indication of how the patient's score ranks in relation to the general population. Higher percentile rankings indicate better function/quality of life. 50th percentile is the average of the general population and indicates half of respondents had a worse score. OBJECTIVE MEASURES WITH LEVEL OF FUNCTION: Posture / Alignment Posture: Forward head, Increased thoracic kyphosis, Rounded shoulders Hip Observations R Hip Palpation Tenderness: Piriformis L Hip Palpation Tenderness: No tenderness noted Knee Observations R Knee Palpation Tenderness: No tenderness noted (specifically no tenderness along joint line) L Knee Palpation Tenderness: No tenderness noted Sensation - Lower Extremity LE Light Touch Sensation: Grossly Intact Spine Observations R Lumbar Spine Palpation Tenderness: Piriformis L Lumbar Spine Palpation Tenderness: No tenderness noted Sensation - Lumbar Sensation: Grossly Intact Lumbar Spine AROM Lumbar Flexion: Moderate limitation Lumbar Extension: Major limitation, Increased pain, Produces (pain in R hip) Lumbar R Side-Bend: Normal Lumbar L Side-Bend: Normal Lumbar R Rotation: Moderate limitation Lumbar L Rotation: Minimal limitation, Increased pain, Peripheralizing, Produces (pain in R thigh) LE Flexibility Flexibility: Piriformis Flexibility R Piriformis Flexibility: 20 (very painful and reproduces his familiar pain) L Piriformis Flexibility: 34 (no pain) LE Strength R LE Strength: no asymmetrical myotomal weakness in R LE despite this being his painful side. L LE Strength: Pt is unable to actively DF L great toe and he blames this on peripheral neuropathy. Special Tests - Hip and Spine Hip and Spine Special Tests: SLR Test SLR Test: Right Positive, Left Negative (R SLR reproduced his familiar pain in R hip, R thigh and R knee.) Special Tests - Knee Knee Special Tests: Mohit's Test Mohit's Test: Right Negative Gait Gait Observation: Pt arrives using rollator safe and correct but some verbal cues were necessary for safety with locking and hand placement with transfers Education: Education Learning Preferences: Explanation, Demonstration, Performance, Printed Materials Barriers: Cognitive Limitations (memory limitations) Learning/educational needs: Home exercise program, Plan of Care, Posture, Body Mechanics, Gait Training Education Provided: Yes, see treatment interventions for education provided Education Provided To: Patient, Family Education Mode/Type: Demonstration, Explanation/Discussion, Literature/Printed Materials, Performance Response to Education/Teach Back: States/Identifies, Return Demonstration, Requires Review/Additional Education TREATMENT: PT Treatment Interventions: Therapeutic Exercise, Self-Fpc Management Evaluation Therapeutic Exercise: 1: Pt and his were educated on findings of exam, anatomy and rationale for HEP provided. He was repeatedly reminded that he should not be completing HEP if it causes increased pain. 2: *supine R piriformis stretching 3x30 seconds 3: *supine R SKTC 3x30 seconds 4: DKTC attempted but this caused increased R hip pain and therefore this was not added to HEP. He also developed a cramp in L hamstring with L knee flexed and therefore he would straighten L knee to alleviate cramp. Skilled Intervention: Patient was educated in proper exercise technique and purpose for exercises. Reviewed and educated patient on additions/changes for home exercise program as above (*). Skilled judgment was provided in selection of appropriate interventions. Provided written instruction for home exercise program to facilitate proper performance and compliance. Correct performance of therapeutic exercises was facilitated with verbal, visual, and tactile cuing. Patient education as noted. Self-Fpc Management: 1: Pt and his had manuy questions about etiology of symptoms in R LE that began less than one week ago. They had questions about current proposted treatment plan by many different healthcare providers. They had questions about results of imaging studies and how these fit into his plan for R LE pains and how all of this fits into his previously established plans of care for PT. All of their questions were answered and this information was used as rationale for plan of care recommendations as well as recommendations on how to complete necessary ADLS in light of his symptoms and likely etiology of symptoms. Continued use of rollator strongly recommended. Skilled Intervention: Skilled judgment in the selection of proper modification for activity of daily living/home management based on clinical presentation, deficits, and needs. Reviewed patient specific diagnosis in relation to activities of daily living/home management. Billing * Re-Evaluation Complexity: 1 Unit Therapeutic Exercise Treatment Minutes: 15 Self-Care/Home Management Treatment Minutes: 10 Total Treatment Time Minutes (timed/untimed): 45 Malcolm Land PT documented in this encounter [facility] 10-18-2022 Miscellaneous Notes Patient's Stacey returned call and given provider's message below. Stacey asks that Ortho consult information be sent to Dr. Hines's office. Faxed as requested to [phone]. Marie Bacon RN Left message for patient to return call to office Mary Yusuf Cma Please let patient know his xrays show degeneration to his lower back and right knee. I have placed a consult to orthopedics and faxed it to Dr. Hines's office. documented in this encounter [facility] 10-17-2022 Note [facility] 10-17-2022 History of Present illness Narrative Episode Visit Count: 8 Therapist That Will Accept/Oversee The Plan Of Care: Nicole Matthew Start of Care Date: 10/09/22 Onset Date: 07/12/22 ( I noticed dizziness when I woke up at [place] after my surgery. ) Plan of Care Certification Date: 10/09/22 Next Certification Due Date: 11/13/22 Patient Identified by Name and Date of : Yes REHABILITATION AND SPORTS THERAPY PHYSICAL THERAPY TREATMENT NOTE ASSESSMENT: Essie Espino tolerated the session with fatigue, increased symptoms, and expected muscle soreness. He demonstrated difficulty with exercises that involved R knee movement. The patient will continue to benefit from ongoing skilled physical therapy to progress toward set goals. PLAN FOR NEXT VISIT: Asses R knee due to new order. Resume balance exercises SUBJECTIVE: Patient Reason for Visit: Per pt and his , this has not been a good day for pt. He has increased R knee pain that is limiting his walking and standing abilities, took pain medication about 20-30 minutes prior to therapy sesssion. Pt states that a new order for his R knee pain. Pt had x-ray of R hip and knee yesterday. Pain: Pain Pain Level: 5 Pain Location: Hip - Right, Knee - Right Frequency: Sitting Post Treatment Pain Post Treatment Pain Level: Worse Post Treatment Pain Location: Hip - Right, Knee - Right OBJECTIVE MEASURES WITH LEVEL OF FUNCTION: TREATMENT: Therapeutic Exercise: 1: SciFit StepOne seat #12 x6 minutes (Pt provided an update on his condition. Knee felt better afterwards, required rest break at 3 1/2 minutes) 2: seated alt B marching 1x10 (increased pain in R knee.) 3: Seated GTB perturbations at edge of table 3x15 forward and each side 4: STS 1x10 5: Attempted LAQ, too painful on R knee. 6: Step up on 6 inch step leading with LLE only 1x10 Skilled Intervention: Patient was educated in proper exercise technique and purpose for exercises. Skilled judgment was provided in selection of appropriate interventions. Correct performance of therapeutic exercises was facilitated with verbal and visual cuing. Billing Therapeutic Exercise Treatment Minutes: 40 Total Treatment Time Minutes (timed/untimed): 40 FERNY Green, PT documented in this encounter [facility] 10-17-2022 Note HNO ID: [id number] Author: Stephanie Simpson I, MD Service: ? Author Type: Physician Type: Progress Notes Filed: 10/17/2022 12:13 PM Note Text: NEUROSURGERY POST-OP NOTE Stephanie Simpson MD Chair, Clinical Neurosciences Director, Spinal Neurosurgery [facility] Date of visit: October 17, 2022 Patient Name: Mr.Donald Neema Espino Date of : 1945 Current Age: [age] year old Sex: male MRN/E# [id number] Last Office Visit: 08/27/2022 SURGERY: L3-4 laminectomy on 07/12/2022 Pre-Surgical Symptoms: Fatigue in his legs resulting in gait and balance issues. Symptoms appeared claudicant in nature Past Medical/Surgical History: The patient has a history of arthritis, Vitamin B12 deficiency, CAD, esophageal stenosis, HLD, Obesity (39.00), Neuropathy, CKD, DM2(HgbA1c 6.3% 01/01/2022) . He has a prior history of low back surgery. +ASA Smoking: Former Alcohol Use: occasional HPI: Patient was discharged from [facility] on 07/19/2022 to an acute rehab facility with prescription for Keflex x7 days. He presented for his routine 2 week post operative visit with Marisa Iglesias CNP on 07/26/2022 where he had been participating in therapy at rehab in [place]. He felt like he was gradually gaining strength in lower extremities and was ambulating with wheeled walker. Low back pain was tolerable with use of Tylenol. His incision had a small < 1cm area of superficial dehiscence at proximal aspect of incision with mild erythema, no drainage. He was started on doxycyline for 7 days as well as using xeroform and gauze to cover incision. Activity restrictions were enforced and he was requested to follow up in 4 weeks. He last presented to the office 08/27/2022 for a 6 week post operative visit. He stated that he had been doing well since his last visit. He reported mild back and hip pain when he first got up in the morning. He felt that the strength in his legs was slowly coming back. He did still get fatigued easily. He had been home since 08/01/2022 and had not been in physical therapy since returning home from rehab. His incision was dry and intact. There was some mild erythema and scabbing at the bottom of his incision. Denied any drainage, fevers, chills. He was taking Tylenol for pain with some relief. He was asked to keep an eye on his incision and let us know if it worsened. He was asked to undergo a course of PT for balance and gait training as well as core muscle strengthening. Patient is having their 3 month post operative visit. He has been participating in PT since his last visit. He presents with his and using rollator walker for ambulation. He denies any back pain. He has been participating in PT for balance/gait and has had slow progress with improvement of this. He has new right hip pain and right knee pain that he has been following with his PCP for and undergoing workup. He thinks this may be contributing to his slow progress with PT. Incision: Dry and intact, without redness, scabbing noted Current Outpatient Medications Medication Sig Dispense Refill simvastatin (ZOCOR) 10 mg tablet Take 1 tablet by mouth daily at bedtime. 90 tablet 1 gabapentin (NEURONTIN) 100 mg capsule Take 2 capsules by mouth three times daily for 90 days. Along with your 800 mg three times a day for a total of 1000 mg three times a day. [address] (PROTONIX) 40 mg tablet Take 40 mg by mouth once daily. acetaminophen (TYLENOL) 325 mg tablet Take 1-2 tablets by mouth every 4 hours as needed for pain. oxybutynin ER (DITROPAN XL) 10 mg 24 hr tablet Take 1 tablet by mouth once daily. For overactive bladder 90 tablet 1 losartan (COZAAR) 50 mg tablet Take 1 tablet by mouth once daily. 90 tablet 1 CPAP/BIPAP/OTHER New set up: Settings 7 - 20 cm H2O, suitable mask per pt preference (nasal mask), chin strap, head gear, humidity, tubing, lifetime supplies. G47.33 FUAD 1 Each 0 omeprazole (PRILOSEC) 40 mg capsule Take 1 capsule by mouth once daily. 90 capsule 1 metFORMIN (GLUCOPHAGE) 1,000 mg tablet Take 1 tablet by mouth twice daily with meals. 180 tablet 1 gabapentin (NEURONTIN) 400 mg capsule Take 2 capsules by mouth three times daily for 180 days. 540 capsule 1 cyanocobalamin (VITAMIN B-12) 1,000 mcg tab Take 1 tablet by mouth once daily. 0 CPAP Use 10 cm in the nose daily at bedtime. 0 Current Facility-Administered Medications Medication Dose Route Frequency Provider Last Rate Last Admin perflutren lipid microspheres 1.3 mL in NaCl (PF) 0.9% 10 mL injection (DEFINITY) INTRAVENOUS DIRECTED PRN Lola Romo PA-C sodium chloride 0.9 % (flush) 10 mL (BD POSIFLUSH) 10 mL INTRAVENOUS DIRECTED PRN Lola Romo PA-C Objective Review of Systems Constitutional: Negative for chills, diaphoresis and fever. HENT: Negative for congestion, sinus pressure and trouble swallowing. Eyes: Negative for pain, discharge and visual disturbanc (more content not included)... [facility] 10-17-2022 History of Present illness Narrative Images from the original note were not included. NEUROSURGERY POST-OP NOTE Stephanie Simpson MD Chair, Clinical Neurosciences Director, Spinal Neurosurgery [facility] Date of visit: October 17, 2022 Patient Name: Mr.Donald Neema Espino Date of : 1945 Current Age: [age] year old Sex: male MRN/E# [id number] Last Office Visit: 08/27/2022 SURGERY: L3-4 laminectomy on 07/12/2022 Pre-Surgical Symptoms: Fatigue in his legs resulting in gait and balance issues. Symptoms appeared claudicant in nature Past Medical/Surgical History: The patient has a history of arthritis, Vitamin B12 deficiency, CAD, esophageal stenosis, HLD, Obesity (39.00), Neuropathy, CKD, DM2(HgbA1c 6.3% 01/01/2022) . He has a prior history of low back surgery. +ASA Smoking: Former Alcohol Use: occasional HPI: Patient was discharged from [facility] on 07/19/2022 to an acute rehab facility with prescription for Keflex x7 days. He presented for his routine 2 week post operative visit with Marisa Iglesias CNP on 07/26/2022 where he had been participating in therapy at rehab in [place]. He felt like he was gradually gaining strength in lower extremities and was ambulating with wheeled walker. Low back pain was tolerable with use of Tylenol. His incision had a small < 1cm area of superficial dehiscence at proximal aspect of incision with mild erythema, no drainage. He was started on doxycyline for 7 days as well as using xeroform and gauze to cover incision. Activity restrictions were enforced and he was requested to follow up in 4 weeks. He last presented to the office 08/27/2022 for a 6 week post operative visit. He stated that he had been doing well since his last visit. He reported mild back and hip pain when he first got up in the morning. He felt that the strength in his legs was slowly coming back. He did still get fatigued easily. He had been home since 08/01/2022 and had not been in physical therapy since returning home from rehab. His incision was dry and intact. There was some mild erythema and scabbing at the bottom of his incision. Denied any drainage, fevers, chills. He was taking Tylenol for pain with some relief. He was asked to keep an eye on his incision and let us know if it worsened. He was asked to undergo a course of PT for balance and gait training as well as core muscle strengthening. Patient is having their 3 month post operative visit. He has been participating in PT since his last visit. He presents with his and using rollator walker for ambulation. He denies any back pain. He has been participating in PT for balance/gait and has had slow progress with improvement of this. He has new right hip pain and right knee pain that he has been following with his PCP for and undergoing workup. He thinks this may be contributing to his slow progress with PT. Incision: Dry and intact, without redness, scabbing noted Current Outpatient Medications Medication Sig Dispense Refill simvastatin (ZOCOR) 10 mg tablet Take 1 tablet by mouth daily at bedtime. 90 tablet 1 gabapentin (NEURONTIN) 100 mg capsule Take 2 capsules by mouth three times daily for 90 days. Along with your 800 mg three times a day for a total of 1000 mg three times a day. [address] (PROTONIX) 40 mg tablet Take 40 mg by mouth once daily. acetaminophen (TYLENOL) 325 mg tablet Take 1-2 tablets by mouth every 4 hours as needed for pain. oxybutynin ER (DITROPAN XL) 10 mg 24 hr tablet Take 1 tablet by mouth once daily. For overactive bladder 90 tablet 1 losartan (COZAAR) 50 mg tablet Take 1 tablet by mouth once daily. 90 tablet 1 CPAP/BIPAP/OTHER New set up: Settings 7 - 20 cm H2O, suitable mask per pt preference (nasal mask), chin strap, head gear, humidity, tubing, lifetime supplies. G47.33 FUAD 1 Each 0 omeprazole (PRILOSEC) 40 mg capsule Take 1 capsule by mouth once daily. 90 capsule 1 metFORMIN (GLUCOPHAGE) 1,000 mg tablet Take 1 tablet by mouth twice daily with meals. 180 tablet 1 gabapentin (NEURONTIN) 400 mg capsule Take 2 capsules by mouth three times daily for 180 days. 540 capsule 1 cyanocobalamin (VITAMIN B-12) 1,000 mcg tab Take 1 tablet by mouth once daily. 0 CPAP Use 10 cm in the nose daily at bedtime. 0 Current Facility-Administered Medications Medication Dose Route Frequency Provider Last Rate Last Admin perflutren lipid microspheres 1.3 mL in NaCl (PF) 0.9% 10 mL injection (DEFINITY) INTRAVENOUS DIRECTED PRN Lola Romo PA-C sodium chloride 0.9 % (flush) 10 mL (BD POSIFLUSH) 10 mL INTRAVENOUS DIRECTED PRN Lola Romo PA-C Objective Review of Systems Constitutional: Negative for chills, diaphoresis and fever. HENT: Negative for congestion, sinus pressure and trouble swallowing. Eyes: Negative for pain, discharge and visual disturbance. Respiratory: Negative for cough, shortness of breath and wheezing. Cardiovascular: Negative for chest pain, palpitations and leg swelling. Gastrointestinal: Negative for constipation, diarrhea, nausea and vomiting. Endocrine: Negative for cold intolerance and heat intolerance. Genitourinary: Negative for difficulty urinating, frequency and urgency. Musculoskeletal: Positive for gait problem. Negative for back pain and neck pain. Skin: Negative for rash and wound. Allergic/Immunologic: Negative for environmental allergies and food allergies. Neurological: Positive for weakness. Negative for dizziness and numbness. Hematological: Does not bruise/bleed easily. Psychiatric/Behavioral: Negative for agitation. The patient is not nervous/anxious. On examination today in clinic he ambulates with a wide-based gait using his walker. He has palpable tenderness to the right knee. WOUND ASSESSMENT: Incision healing, Well approximated incision, Non-reddened PAIN EVALUATION 10/16/2022 1108 Pain Level: 8 Pain Location: Knee-Right Description: Burning;Stabbing Duration Amount of Time: 24 Duration Units: Hours Frequency: Continuous Intervention/Comfort measure: Medication Comments: unable to stand for very long. Data Review: IMAGING STUDIES: No new imaging Assessment & Plan: Although initially the patient had some good improvements with his decompression and has since slowed down. He has gone back to therapy. He is now has some additional issues of knee pain and hip pain. I recommended we continue with therapy but plan to regroup in 3 months time. If he continues to have balance gait issues we may consider imaging his spine further both through the surgical area as well as above. The following portions of the patient's history were reviewed, confirmed, and updated as necessary: allergies, current medications, past family history, past medical history, past social history, past surgical history, problem list, HPI, and ROS obtained by others. Some elements may be copied from a previous office note and have been reviewed/updated where appropriate. All portions reflect current medical decision making from today. The clinical and radiographic findings as well as the risks, benefits and alternatives of treatment have been reviewed in detail with the patient. Advised to call the office if symptoms worsen or new symptoms develop. Patient expressed understanding and is in agreement with plan. Stephanie Simpson MD Chair, Clinical Neurosciences Director, Spinal Neurosurgery [facility] This note was partially generated using [employer] voice recognition system, and there may be some incorrect words, spellings, and punctuation that were not noted in checking the note before saving. documented in this encounter [facility] 10-16-2022 Note [facility] 10-16-2022 Note [facility] 10-16-2022 Instructions Richard Schmidt APRN.CNP - 10/16/2022 1:37 PM EDT Complete xrays Schedule with PT documented in this encounter [facility] 10-16-2022 History of Present illness Narrative Chief Complaint Patient presents with: Knee Pain Right Hip Pain HPI Essie Espino is a 77 year old male who presents here today for Above Complaints.. Patient presents for right knee and hip pain. Patient states hiip pain started first a week ago and then included knee which has gotten much worse since yesterday. Patient using a walker which he has been doing since his back surgery in june. Past medical history, appointments, medications, allergies reviewed. Previous Medical History PAST MEDICAL HISTORY Diagnosis Date Advance directive discussed with patient 01/01/2022 Discussed 12/2021 Arthritis B12 deficiency 04/06/2015 Bilateral leg edema 06/28/2021 Coronary artery disease Diabetic eye exam (HCC) 11/01/2013 Last done:05/20/2018 Diverticulosis of large intestine without hemorrhage Elevated LFTs 12/11/2016 Elevated PSA 12/30/2018 Esophageal stenosis 08/20/2016 Essential hypertension, benign 01/25/2005 Ex-smoker 08/08/2016 US: 08/15/2016 no AAA Fatty liver 09/28/2008 CT showed diffuse fatty infiltration (incidental on CT chest) Mildly elevated LFT's since 01/26 GERD without esophagitis 06/27/2020 Internal hemorrhoids without mention of complication Leg pain, bilateral 12/28/2020 Living will on file 01/01/2022 DPA: Stacey () Medicare annual wellness visit, subsequent 12/18/2017 Medicare Part B: 06/20/2010 last done: 12/30/2018 Mixed hyperlipidemia 11/01/2013 Morbid obesity due to excess calories ([facility]) 04/06/2015 Neuropathy 10/31/2013 Had low back surgery 2010 for disc herniation and has had numbness in his toes since then. Obesity, Class II, BMI 35-39.9 04/06/2015 Obstructive sleep apnea syndrome 04/06/2015 CPAP with good success Pain of both hip joints 02/06/2019 PMH - PAST MEDICAL HISTORY OF 02/2008 release nerves in back Seborrheic keratoses, inflamed 08/10/2015 Left temporal and right check Spinal stenosis of lumbar region Spinal stenosis of lumbar region Stage 3a chronic kidney disease ([facility]) 02/01/2022 Type 2 diabetes mellitus with diabetic polyneuropathy, without long-term current use of insulin ([facility]) 12/12/2015 Urge incontinence 08/10/2015 VENTRICULAR TACHYCARDIA, PAROXYSMAL 07/04/2005 Previous Surgical History PAST SURGICAL HISTORY Procedure Laterality Date APPENDECTOMY BACK SURGERY HX 2007 BACK SURGERY HX 07/12/2022 L3-4 Laminectomy CHOLECYSTECTOMY Cholecystectomy COLONOSCOPY FLX DX W/COLLJ SPEC WHEN PFRMD 11/07/2005 Colonoscopy recheck 10 yrs COLONOSCOPY FLX DX W/COLLJ SPEC WHEN PFRMD 07/29/2017 Colonoscopy EGD 05/16/2020 ESOPHAGOGASTRODUODENOSCOPY TRANSORAL DIAGNOSTIC 03/23/2013 EGD EYE SURGERY HX FECAL OCCULT BLOOD TEST 12/14/2016 negative PAST SURGICAL HISTORY OF 03/2008 lumbar decompression, [facility] PAST SURGICAL HISTORY OF 09/2014 left cataract PAST SURGICAL HISTORY OF 2007 right cataract PAST SURGICAL HISTORY OF Left 09/02/2018 partial medial and lateral menisectomy, loose body removal. TONSILLECTOMY HX Family History FAMILY HISTORY Problem Relation Age of Onset Coronary Artery Disease Father age 68; heavy EtOH use Alcohol/Drug Father alcoholism Diabetes Paternal Grandmother Prostate Cancer Other none Colon Cancer Other none known Dementia Paternal Uncle identicle twin to pt's father Patient Allergies ALLERGIES Allergen Reactions Chlorhexidine Gluco* Shortness of Breath Lisinopril Cough Penicillins Intolerance thinks he has had PCN without complication Current Medications Current Outpatient Medications on File Prior to Visit Medication Sig simvastatin (ZOCOR) 10 mg tablet Take 1 tablet by mouth daily at bedtime. gabapentin (NEURONTIN) 100 mg capsule Take 2 capsules by mouth three times daily for 90 days. Along with your 800 mg three times a day for a total of 1000 mg three times a day. pantoprazole DR (PROTONIX) 40 mg tablet Take 40 mg by mouth once daily. acetaminophen (TYLENOL) 325 mg tablet Take 1-2 tablets by mouth every 4 hours as needed for pain. oxybutynin ER (DITROPAN XL) 10 mg 24 hr tablet Take 1 tablet by mouth once daily. For overactive bladder losartan (COZAAR) 50 mg tablet Take 1 tablet by mouth once daily. CPAP/BIPAP/OTHER New set up: Settings 7 - 20 cm H2O, suitable mask per pt preference (nasal mask), chin strap, head gear, humidity, tubing, lifetime supplies. G47.33 FUAD omeprazole (PRILOSEC) 40 mg capsule Take 1 capsule by mouth once daily. metFORMIN (GLUCOPHAGE) 1,000 mg tablet Take 1 tablet by mouth twice daily with meals. gabapentin (NEURONTIN) 400 mg capsule Take 2 capsules by mouth three times daily for 180 days. cyanocobalamin (VITAMIN B-12) 1,000 mcg tab Take 1 tablet by mouth once daily. CPAP Use 10 cm in the nose daily at bedtime. Current Facility-Administered Medications on File Prior to Visit Medication perflutren lipid microspheres 1.3 mL in NaCl (PF) 0.9% 10 mL injection (DEFINITY) sodium chloride 0.9 % (flush) 10 mL (BD POSIFLUSH) Social History Social History Tobacco Use Smoking status: Former Packs/day: 1.00 Years: 20.00 Pack years: 20.00 Types: Cigarettes Quit date: 04/22/1989 Years since quittin.5 Smokeless tobacco: Never Vaping Use Vaping Use: Never used Substance Use Topics Alcohol use: Yes Comment: OCCASIONAL Drug use: No Review of Symptoms REVIEW OF SYSTEMS SEE HPI EXAM: BP 140/82 Pulse 73 Resp 16 Wt 103 kg (227 lb) BMI 37.20 kg/m General Appearance: Well appearing, alert, in no acute distress, well-hydrated, well nourished.. Musculoskeletal: Positive findings: joint location: on right knee pain, swelling, painful movement, and loss of ROM, on right hip pain and painful movement, Joint pain: Knee and Hips. Peripheral Pulses: Normal. Health Maintenance List BP CONTROLLED (<130/80) Never done DTAP,TDAP,TD(3 - Td or Tdap) due on 04/06/2015 HBA1C due on 12/29/2022 DIABETIC FOOT EXAM due on 01/01/2023 URINE ALBUMIN:CREATININE RATIO due on 01/02/2023 DILATED RETINAL EXAM due on 02/01/2023 LDL CHOLESTEROL due on 08/14/2023 SERUM CREATININE due on 08/14/2023 HEMOGLOBIN/HEMATOCRIT due on 08/14/2023 ANNUAL PCP TEAM CHRONIC DISEASE VISIT due on 10/11/2023 INFLUENZA Completed ADVANCE DIRECTIVE DISCUSSION Completed DEPRESSION ASSESSMENT Completed HEPATITIS C SCREENING Completed SHINGRIX VACCINE Completed COVID-19 VACCINE Completed PNEUMOCOCCAL: 65+ Completed ASSESSMENT/PLAN: 1. Right hip pain - ICD9: 719.45, ICD10: M25.551 (primary diagnosis) - XR HIP GENERAL 3V PELV/AP/LAT RIGHT - CONSULT TO PHYSICAL THERAPY 2. Acute pain of right knee - ICD9: 719.46, ICD10: M25.561 - XR KNEE GENERAL 4V AP BOTH/PA BOTH/LAT/MERC RIGHT - CONSULT TO PHYSICAL THERAPY Richard Schmidt APRN.BAG PRESSER documented in this encounter [facility] 10-12-2022 Note [facility] 10-12-2022 History of Present illness Narrative Episode Visit Count: 7 Therapist That Will Accept/Oversee The Plan Of Care: Nicole Matthew Start of Care Date: 10/09/22 Onset Date: 07/12/22 ( I noticed dizziness when I woke up at [place] after my surgery. ) Plan of Care Certification Date: 10/09/22 Next Certification Due Date: 11/13/22 Patient Identified by Name and Date of : Yes [facility]AB[facility]TS [facility]ER[facility]Y PHYSICAL THERAPY TREATMENT NOTE ASSESSMENT: Essie Espino tolerated the session with fatigue and no issues. He demonstrated improvements in safety with ambulation and exercise tolerance. The patient will continue to benefit from ongoing skilled physical therapy to progress toward set goals. PLAN FOR NEXT VISIT: Continue trunk and LE strengthening and balance training SUBJECTIVE: Patient Reason for Visit: Pt reports that overall he is doing well and getting progressively better overall. He denies any negative effects following last session or since then. He does report continued and intermittent pain R hip in the morning. Today he reports waking with increased R hip pain. Pain: Pain Pain Level: 3 Pain Location: Hip - Right Description: Dull Frequency: Intermittent (mornings) Post Treatment Pain Post Treatment Pain Level: No Change Post Treatment Symptoms: Pt reported fatigue from a good workout but he denied any increase in pain OBJECTIVE MEASURES WITH LEVEL OF FUNCTION: TREATMENT: Therapeutic Exercise: 1: [employer] StepOne seat #12 x6 minutes (Pt provided an update on his condition and plan of care reviewed.) 3: repeated sit to stand from chair 2x12 4: Pt reminded that he should not be attempting balance exercises at home. 5: HEP reviewed and continuation encouraged to tolerance. Skilled Intervention: Patient was educated in proper exercise technique and purpose for exercises. Skilled judgment was provided in selection of appropriate interventions. Correct performance of therapeutic exercises was facilitated with verbal, visual, and tactile cuing. Patient education as noted. Neuromuscular Re-Education: 1: NBOS on blue foam square 2x30 seconds eyes open 2: NBOS on blue foam square 2x30 seconds eyes closed 3: balance board side to side weight shifts x10 eyes open and x10 eyes closed 4: balance board front to back weight shifts x10 eyes open and x10 eyes closed. 5: marching in place x15 Skilled Intervention: Skilled judgment used to assess appropriate program for balance and coordination activity. Ensured patient safety with use of gait belt and intermittent assist. Patient education as noted. Billing Therapeutic Exercise Treatment Minutes: 15 Neuromuscular Re-Education Treatment Minutes: 23 Total Treatment Time Minutes (timed/untimed): 38 Malcolm Land PT documented in this encounter [facility] 10-10-2022 Note [facility] 10-10-2022 Note [facility] 10-10-2022 History of Present illness Narrative Chief Complaint Patient presents with: Recheck: Blood pressure HPI Essie Espino is a 77 year old male who presents here today for recheck. Patient states compared to last month he has had some improvement. He has only done one session of vestibular therapy. He is still doing therapy for his back and legs/weakness. Has a follow up with his surgeon next week. Past medical history, appointments, medications, allergies reviewed. Previous Medical History PAST MEDICAL HISTORY Diagnosis Date Advance directive discussed with patient 01/01/2022 Discussed 12/2021 Arthritis B12 deficiency 04/06/2015 Bilateral leg edema 06/28/2021 Coronary artery disease Diabetic eye exam (HCC) 11/01/2013 Last done:05/20/2018 Diverticulosis of large intestine without hemorrhage Elevated LFTs 12/11/2016 Elevated PSA 12/30/2018 Esophageal stenosis 08/20/2016 Essential hypertension, benign 01/25/2005 Ex-smoker 08/08/2016 US: 08/15/2016 no AAA Fatty liver 09/28/2008 CT showed diffuse fatty infiltration (incidental on CT chest) Mildly elevated LFT's since 01/26 GERD without esophagitis 06/27/2020 Internal hemorrhoids without mention of complication Leg pain, bilateral 12/28/2020 Living will on file 01/01/2022 DPA: Stacey () Medicare annual wellness visit, subsequent 12/18/2017 Medicare Part B: 06/20/2010 last done: 12/30/2018 Mixed hyperlipidemia 11/01/2013 Morbid obesity due to excess calories ([facility]) 04/06/2015 Neuropathy 10/31/2013 Had low back surgery 2010 for disc herniation and has had numbness in his toes since then. Obesity, Class II, BMI 35-39.9 04/06/2015 Obstructive sleep apnea syndrome 04/06/2015 CPAP with good success Pain of both hip joints 02/06/2019 PMH - PAST MEDICAL HISTORY OF 02/2008 release nerves in back Seborrheic keratoses, inflamed 08/10/2015 Left temporal and right check Spinal stenosis of lumbar region Spinal stenosis of lumbar region Stage 3a chronic kidney disease ([facility]) 02/01/2022 Type 2 diabetes mellitus with diabetic polyneuropathy, without long-term current use of insulin ([facility]) 12/12/2015 Urge incontinence 08/10/2015 VENTRICULAR TACHYCARDIA, PAROXYSMAL 07/04/2005 Previous Surgical History PAST SURGICAL HISTORY Procedure Laterality Date APPENDECTOMY BACK SURGERY HX 2007 BACK SURGERY HX 07/12/2022 L3-4 Laminectomy CHOLECYSTECTOMY Cholecystectomy COLONOSCOPY FLX DX W/COLLJ SPEC WHEN PFRMD 11/07/2005 Colonoscopy recheck 10 yrs COLONOSCOPY FLX DX W/COLLJ SPEC WHEN PFRMD 07/29/2017 Colonoscopy EGD 05/16/2020 ESOPHAGOGASTRODUODENOSCOPY TRANSORAL DIAGNOSTIC 03/23/2013 EGD EYE SURGERY HX FECAL OCCULT BLOOD TEST 12/14/2016 negative PAST SURGICAL HISTORY OF 03/2008 lumbar decompression, [facility] PAST SURGICAL HISTORY OF 09/2014 left cataract PAST SURGICAL HISTORY OF 2007 right cataract PAST SURGICAL HISTORY OF Left 09/02/2018 partial medial and lateral menisectomy, loose body removal. TONSILLECTOMY HX Family History FAMILY HISTORY Problem Relation Age of Onset Coronary Artery Disease Father age 68; heavy EtOH use Alcohol/Drug Father alcoholism Diabetes Paternal Grandmother Prostate Cancer Other none Colon Cancer Other none known Dementia Paternal Uncle identicle twin to pt's father Patient Allergies ALLERGIES Allergen Reactions Chlorhexidine Gluco* Shortness of Breath Lisinopril Cough Penicillins Intolerance thinks he has had PCN without complication Current Medications Current Outpatient Medications on File Prior to Visit Medication Sig simvastatin (ZOCOR) 10 mg tablet Take 1 tablet by mouth daily at bedtime. gabapentin (NEURONTIN) 100 mg capsule Take 2 capsules by mouth three times daily for 90 days. Along with your 800 mg three times a day for a total of 1000 mg three times a day. pantoprazole DR (PROTONIX) 40 mg tablet Take 40 mg by mouth once daily. acetaminophen (TYLENOL) 325 mg tablet Take 1-2 tablets by mouth every 4 hours as needed for pain. oxybutynin ER (DITROPAN XL) 10 mg 24 hr tablet Take 1 tablet by mouth once daily. For overactive bladder losartan (COZAAR) 50 mg tablet Take 1 tablet by mouth once daily. CPAP/BIPAP/OTHER New set up: Settings 7 - 20 cm H2O, suitable mask per pt preference (nasal mask), chin strap, head gear, humidity, tubing, lifetime supplies. G47.33 FUAD omeprazole (PRILOSEC) 40 mg capsule Take 1 capsule by mouth once daily. metFORMIN (GLUCOPHAGE) 1,000 mg tablet Take 1 tablet by mouth twice daily with meals. gabapentin (NEURONTIN) 400 mg capsule Take 2 capsules by mouth three times daily for 180 days. cyanocobalamin (VITAMIN B-12) 1,000 mcg tab Take 1 tablet by mouth once daily. CPAP Use 10 cm in the nose daily at bedtime. Current Facility-Administered Medications on File Prior to Visit Medication perflutren lipid microspheres 1.3 mL in NaCl (PF) 0.9% 10 mL injection (DEFINITY) sodium chloride 0.9 % (flush) 10 mL (BD POSIFLUSH) Social History Social History Tobacco Use Smoking status: Former Packs/day: 1.00 Years: 20.00 Pack years: 20.00 Types: Cigarettes Quit date: 04/22/1989 Years since quittin.4 Smokeless tobacco: Never Vaping Use Vaping Use: Never used Substance Use Topics Alcohol use: Yes Comment: OCCASIONAL Drug use: No Review of Symptoms REVIEW OF SYSTEMS See hpi EXAM: BP 130/80 (BP Site: Left Arm, BP Position: Sitting, BP Cuff Size: Large Adult) Pulse 78 Temp 36.6 C (97.8 F) Resp 18 Wt 103.9 kg (229 lb) BMI 37.53 kg/m General Appearance: Well appearing, alert, in no acute distress, well-hydrated, well nourished.. Health Maintenance List BP CONTROLLED (<130/80) Never done DTAP,TDAP,TD(3 - Td or Tdap) due on 04/06/2015 HBA1C due on 12/29/2022 DIABETIC FOOT EXAM due on 01/01/2023 URINE ALBUMIN:CREATININE RATIO due on 01/02/2023 DILATED RETINAL EXAM due on 02/01/2023 LDL CHOLESTEROL due on 08/14/2023 SERUM CREATININE due on 08/14/2023 HEMOGLOBIN/HEMATOCRIT due on 08/14/2023 ANNUAL PCP TEAM CHRONIC DISEASE VISIT due on 09/06/2023 INFLUENZA Completed ADVANCE DIRECTIVE DISCUSSION Completed DEPRESSION ASSESSMENT Completed HEPATITIS C SCREENING Completed SHINGRIX VACCINE Completed COVID-19 VACCINE Completed PNEUMOCOCCAL: 65+ Completed Data reviewed Orthos wnl ASSESSMENT/PLAN: 1. Vertigo - ICD9: 780.4, ICD10: R42 (primary diagnosis) Improving. Continue vestibular home therapy. Orthos wnl today. Will not make further adjustments of medications. Follow up as scheduled or sooner prn. 2. Dizziness - ICD9: 780.4, ICD10: R42 As above. Lola Romo PA-C documented in this encounter [facility] 10-09-2022 Note [facility] 10-09-2022 History of Present illness Narrative Episode Visit Count: 1 Therapist That Will Accept/Oversee The Plan Of Care: Nicole Matthew Start of Care Date: 10/09/22 Onset Date: 07/12/22 ( I noticed dizziness when I woke up at [place] after my surgery. ) Plan of Care Certification Date: 10/09/22 Next Certification Due Date: 11/13/22 Patient Identified by Name and Date of : Yes REHABILITATION AND SPORTS THERAPY PHYSICAL THERAPY EVALUATION PLAN OF CARE: Assessment: Essie Espino presents with diagnosis of vertigo that interferes with bed mobility, bending (eye movement) . He presents with impairments in ADL's, balance, independence in exercise, overall function, patient reported outcome measures, sensation, and symptom management. PROMIS (Patient-Reported Outcomes Measurement Information System) scores were reviewed and physical function domain and self efficacy domain identified as a rehabilitation concern. Prognosis for therapy is Good due to: within-session changes, positive past response to therapy, acuteness of condition, current objective clinical presentation, good support system/ coping skills . He will benefit from skilled therapy services to meet the goals established for this plan of care as noted below. Goals for Episode of Care: created on 10/09/22 through 11/20/22 Patient will have negative positional testing for BPPV. Patient will verbalize the understanding of the diagnosis BPPV, how to recognize symptoms and what to do if they return. Patient will return to prior level of function with all activities of daily living with trace reports of dizziness. Patient Goals: resolve vertigo symptoms with positional changes. Planned Interventions, Frequency, and Duration: Current Frequency: 1x/week Duration: 6 weeks Total Number of Visits Planned: 6 Planned Treatment Interventions: Therapeutic exercise (80276), Neuromuscular re-education (70491), Manual therapy (95126), Therapeutic activities (88641), Self-prison management (37541), Gait Training (91558), Patient/Family/Caregiver Education, Canalith Repositioning Maneuvers (12235) PLAN FOR NEXT VISIT: assesss symptom response to CRM for R PC canalithiasis Patient demonstrates good understanding of plan of care and treatment. The above goals and plan of care were discussed and agreed upon by patient/family. SUBJECTIVE: Essie Espino is a 77 year old male seen today for for vertigo symptoms with intermittent sudden onset with positional changes. Pt. states if I bend over and turn my head a certain way, I know I'm going down. Pt. first noticed this when he woke (supine > sitting EOB) at [place] following a recent spine surgery 07/12/22. This also comes on with sit > stand transfers. Pt. describes symptoms as sudden room spinning lasting just a couple seconds. Resolves with being still or moving slowly. Pt. darricklty being seen by PT for addressing balance, gait, and functional strengthening. Patient Goals: resolve vertigo symptoms with positional changes. Functional Limitations: bed mobility, bending (eye movement) Prior Level of Function: Independent without limitations Relevant History Past Relevant Medical Conditions: Hypertension, Kidney Problems, Diabetes, Vertigo Home Environment Equipment Owned: Rollator Intake Information: Prescription present Previous Treatment: Physical Therapy Falls Interview: No positive findings with falls interview Concussion History of Concussion: No Vestibular Symptoms present for: months Symptom onset: sudden Dizziness: Yes Description: vertigo, spinning (room) Rating of current symptoms: 0/10 Frequency: Intermittent Duration: seconds Symptoms worsened by: bending, supine to sit, turning head quickly Symptoms improved by: moving slow, avoiding triggers, lying down Imbalance: Yes Imbalance triggered by: Walking Fall Assessment: No falls Nausea: no Motion Sickness: None Headache: No Neck Symptoms: No Jaw Symptoms: Yes Description: (tender) Rating of current symptoms: 0/10 Location: bilateral Frequency: Intermittent Duration: intermittent Symptoms worsened by: (shaving) Ear Symptoms: No Hearing Changes: No recent changes (wears hearing aides both ears) Tinnitus: No recent changes, both ears equally Sleep Affected by Symptoms: Not affected by dizziness, not affected by pain History of Syncope: No History of Migraine: No Denies: visual changes, paresthesia, focal weakness, neuropathy, headaches, neurological complaints, tremors Reports: dizziness Pain: Post Treatment Pain Post Treatment Symptoms: denies dizzines upon standing wand ambulation when exiting PT clinic PROMIS Scales Higher is Better 09/30/2022 08/29/2022 Phys Func - Score 34 (moderate dysfunction) 36 (moderate dysfunction) Phys Func - Percentile 5 % 8 % Self-Eff Symptom - Score 49 (Average) 41 (Average) Self-Eff Symptom - Percentile 46 % 18 % T-scores: mean of general population = 50. 5 points is clinically meaningfully difference Percentiles provide an indication of how the patient's score ranks in relation to the general population. Higher percentile rankings indicate better function/quality of life. 50th percentile is the average of the general population and indicates half of respondents had a worse score. OBJECTIVE MEASURES WITH LEVEL OF FUNCTION: Oculomotor Testing Fixation Present Spontaneous Nystagmus: No nystagmus Positional Testing Right Devol-Hallpike: Right Torsional / Clockwise, Upbeat, Symptomatic, Less than 60 seconds, With delay Cervical Spine ROM Cervical ROM : Limitation AROM (denies dizziness with each movmeent) Cervical Flexion AROM: Moderate limitation Cervical Extension AROM: Moderate limitation Cervical Side-Bend Right AROM: Major limitation Cervical Side-Bend Left AROM: Major limitation Cervical Rotation Right AROM: Moderate limitation Cervical Rotation Left AROM: Moderate limitation Gait Gait: Modified Independent Gait Distance (feet): 100 Gait Device: Rollator Gait Deviations: General Deviations General Deviations/Observations: Shuffling Gait, Flexed trunk posture, Machelle decreased, Wide base of support, Visual scanning/environmental awareness decreased, Improper distancing from assistive device, UE weight bearing on assistive device excessive, Path Deviation Gait Observation: denies dizziness with walking Education: Education Learning Preferences: Demonstration, Explanation, Performance Barriers: Acuity of Illness Learning/educational needs: Safety, Home exercise program, Plan of Care, Posture, Gait Training Education Provided: Yes, see treatment interventions for education provided Education Provided To: Patient Education Mode/Type: Demonstration, Explanation/Discussion, Performance Response to Education/Teach Back: States/Identifies, Return Demonstration TREATMENT: PT Treatment Interventions: Self-Fpc Management, Canalith Repositioning Evaluation Self-Fpc Management: Skilled Intervention: Skilled judgment in the selection of proper modification for activity of daily living/home management based on clinical presentation, deficits, and needs. Physical assistance was provided during education for modifications and patient safety. Provided written instruction for activities of daily living techniques to facilitate proper performance and compliance. Reviewed patient specific diagnosis in relation to activities of daily living/home management. Activity progression based on professional judgement. Provided written instruction for home program to facilitate proper performance and compliance. Correct performance of home program was facilitated with verbal, visual, and tactile cueing. Canalith Repositionin: Huan for right posterior canalithiasis Skilled Intervention: Professional judgment was used to determine specific treatment interventions based on assessment of symptoms. Physically assisted patient through each step of repositioning. Verbal and tactile cues provided to patient to assist in moving between each position of maneuver in correct sequence. Patient education including handouts provided regarding self repostitioning techniques to be performed at home. Instructed patient in post repositioning procedures. Billing * Evaluation Low Complexity: 1 Unit Self-Care/Home Management Treatment Minutes: 10 * Canalith Repositionin unit Total Treatment Time Minutes (timed/untimed): 45 Nicole Matthew PT documented in this encounter [facility] 10-05-2022 Note [facility] 10-05-2022 Miscellaneous Notes Spoke with patient's and gave results and instructions. Amy Bueno MA Let patient know US of neck arteries shows only mild narrowing and would not be source of dizziness. I would suggest taking a baby ASA 81 mg once a day. US of heart showed mild thickening of left heart wall. This is a common change with hypertension. There is mild decrease in relaxation which is ok. Contractile function was normal. documented in this encounter [facility] 10-05-2022 History of Present illness Narrative Episode Visit Count: 5 Therapist That Will Accept/Oversee The Plan Of Care: Malcolm Land PT Start of Care Date: 08/29/22 Onset Date: 08/29/21 Plan of Care Certification Date: 10/03/22 Next Certification Due Date: 10/31/22 Patient Identified by Name and Date of : Yes REHABILITATION AND SPORTS THERAPY PHYSICAL THERAPY TREATMENT NOTE ASSESSMENT: Essie Espino tolerated the session with fatigue and expected muscle soreness. He demonstrated improvements in tolerance with balance activities. The patient will continue to benefit from ongoing skilled physical therapy to progress toward set goals. PLAN FOR NEXT VISIT: Continue advancing exercises for LE strengthening, endurance, and balance. Continue with gait training with rollator for safety awareness. SUBJECTIVE: Patient Reason for Visit: Pt states that he is doing well today. Pt reports that he often needs reminders to complete exercises at home. He c/o R hip pain today, not associated with exercise. Pain: Pain Pain Level: 0 Pain Location: Hip - Right Frequency: With movement, Intermittent Post Treatment Pain Post Treatment Symptoms: Pt stated fatigue at end of session. Mo complaints of hip pain during or at end of session. OBJECTIVE MEASURES WITH LEVEL OF FUNCTION: Pt demonstrated increased safety awareness with rollator without verbal cueing. TREATMENT: Therapeutic Exercise: 1: PixSense StepOne seat #12 x6 minutes (subjective collected and reviewed exercises for home and progressions.) 2: Step ups on 6 inch step 1x10 B 3: *Repeated STS 2x10 without use of UE Skilled Intervention: Patient was educated in proper exercise technique and purpose for exercises. Skilled judgment was provided in selection of appropriate interventions. Correct performance of therapeutic exercises was facilitated with verbal and visual cuing. Neuromuscular Re-Education: 1: NBOS eyes open x30 seconds 2: NBOS eyes closed 1x30 seconds 3: Semi-tandem stance 1x30 seconds B 4: Tandem stance RLE forward: 16 seconds, LLE forward 30 seconds 5: NBOS on foam eyes open Skilled Intervention: Skilled judgment used to assess appropriate program for balance and coordination activity. Ensured patient safety with use of gait belt. Billing Therapeutic Exercise Treatment Minutes: 17 Neuromuscular Re-Education Treatment Minutes: 23 Total Treatment Time Minutes (timed/untimed): 40 Betzaida Hoskins, CONVERTER SUPERVISOR Malcolm Land PT documented in this encounter [facility] 10-03-2022 Note [facility] 09-20-2022 Note [facility] 09-20-2022 History of Present illness Narrative Essie Espino is identified through a medication adherence outreach initiative based on pharmacy claims data from [facility] (insurer) for Non-insulin DM medication(s). Patient is reviewed 09/20/22 due to medication adherence concerns with the following medications (name, strength, sig): Metformin 1000 mg twice daily. Per data/report, last fill date and days supply: 04/25/22 for 90 days. Per call to pharmacy, last picked up date and days supply: 04/25/22 for 90 days. Contacted patient: No answer; left generic VM Attempt #1 Was in SNF between 07/12 and 08/01 per chart review. Outcome of review/outreach: (choose outcome source and status) - Filled later than 7 days after Next fill date per call to pharmacy Francis Holman RPh documented in this encounter [facility] 09-07-2022 Note [facility] 09-05-2022 Note [facility] 09-05-2022 Note [facility] 09-05-2022 History of Present illness Narrative Chief Complaint Patient presents with: Recheck: Blood pressure HPI Essie Espino is a 77 year old male who presents here today for recheck on dizziness.. Patient was seen by PCP last month. He complained about dizziness. Worse with movement. Symptoms started after his spinal surgery. PCP noted +orthostatic vitals so his HCTZ was stopped. Patient states that he has not noted improvement yet. Still dizzy with transitions from laying to sitting and still dizziness with eye movement. Describes this a more of a room spinning sensation. No feelings of syncope. Past medical history, appointments, medications, allergies reviewed. Previous Medical History PAST MEDICAL HISTORY Diagnosis Date Advance directive discussed with patient 01/01/2022 Discussed 12/2021 Arthritis B12 deficiency 04/06/2015 Bilateral leg edema 06/28/2021 Coronary artery disease Diabetic eye exam (HCC) 11/01/2013 Last done:05/20/2018 Diverticulosis of large intestine without hemorrhage Elevated LFTs 12/11/2016 Elevated PSA 12/30/2018 Esophageal stenosis 08/20/2016 Essential hypertension, benign 01/25/2005 Ex-smoker 08/08/2016 US: 08/15/2016 no AAA Fatty liver 09/28/2008 CT showed diffuse fatty infiltration (incidental on CT chest) Mildly elevated LFT's since 01/26 GERD without esophagitis 06/27/2020 Internal hemorrhoids without mention of complication Leg pain, bilateral 12/28/2020 Living will on file 01/01/2022 DPA: Stacey () Medicare annual wellness visit, subsequent 12/18/2017 Medicare Part B: 06/20/2010 last done: 12/30/2018 Mixed hyperlipidemia 11/01/2013 Morbid obesity due to excess calories (HCC) 04/06/2015 Neuropathy 10/31/2013 Had low back surgery 2010 for disc herniation and has had numbness in his toes since then. Obesity, Class II, BMI 35-39.9 04/06/2015 Obstructive sleep apnea syndrome 04/06/2015 CPAP with good success Pain of both hip joints 02/06/2019 PMH - PAST MEDICAL HISTORY OF 02/2008 release nerves in back Seborrheic keratoses, inflamed 08/10/2015 Left temporal and right check Spinal stenosis of lumbar region Spinal stenosis of lumbar region Stage 3a chronic kidney disease ([facility]CC) 02/01/2022 Type 2 diabetes mellitus with diabetic polyneuropathy, without long-term current use of insulin ([facility]CC) 12/12/2015 Urge incontinence 08/10/2015 VENTRICULAR TACHYCARDIA, PAROXYSMAL 07/04/2005 Previous Surgical History PAST SURGICAL HISTORY Procedure Laterality Date APPENDECTOMY BACK SURGERY HX 2007 BACK SURGERY HX 07/12/2022 L3-4 Laminectomy CHOLECYSTECTOMY Cholecystectomy COLONOSCOPY FLX DX W/COLLJ SPEC WHEN PFRMD 11/07/2005 Colonoscopy recheck 10 yrs COLONOSCOPY FLX DX W/COLLJ SPEC WHEN PFRMD 07/29/2017 Colonoscopy EGD 05/16/2020 ESOPHAGOGASTRODUODENOSCOPY TRANSORAL DIAGNOSTIC 03/23/2013 EGD EYE SURGERY HX FECAL OCCULT BLOOD TEST 12/14/2016 negative PAST SURGICAL HISTORY OF 03/2008 lumbar decompression, [facility] PAST SURGICAL HISTORY OF 09/2014 left cataract PAST SURGICAL HISTORY OF 2007 right cataract PAST SURGICAL HISTORY OF Left 09/02/2018 partial medial and lateral menisectomy, loose body removal. TONSILLECTOMY HX Family History FAMILY HISTORY Problem Relation Age of Onset Coronary Artery Disease Father age 68; heavy EtOH use Alcohol/Drug Father alcoholism Diabetes Paternal Grandmother Prostate Cancer Other none Colon Cancer Other none known Dementia Paternal Uncle identicle twin to pt's father Patient Allergies ALLERGIES Allergen Reactions Chlorhexidine Gluco* Shortness of Breath Lisinopril Cough Penicillins Intolerance thinks he has had PCN without complication Current Medications Current Outpatient Medications on File Prior to Visit Medication Sig simvastatin (ZOCOR) 10 mg tablet Take 1 tablet by mouth daily at bedtime. gabapentin (NEURONTIN) 100 mg capsule Take 2 capsules by mouth three times daily for 90 days. Along with your 800 mg three times a day for a total of 1000 mg three times a day. pantoprazole DR (PROTONIX) 40 mg tablet Take 40 mg by mouth once daily. acetaminophen (TYLENOL) 325 mg tablet Take 1-2 tablets by mouth every 4 hours as needed for pain. oxybutynin ER (DITROPAN XL) 10 mg 24 hr tablet Take 1 tablet by mouth once daily. For overactive bladder losartan (COZAAR) 50 mg tablet Take 1 tablet by mouth once daily. CPAP/BIPAP/OTHER New set up: Settings 7 - 20 cm H2O, suitable mask per pt preference (nasal mask), chin strap, head gear, humidity, tubing, lifetime supplies. G47.33 FUAD omeprazole (PRILOSEC) 40 mg capsule Take 1 capsule by mouth once daily. metFORMIN (GLUCOPHAGE) 1,000 mg tablet Take 1 tablet by mouth twice daily with meals. gabapentin (NEURONTIN) 400 mg capsule Take 2 capsules by mouth three times daily for 180 days. cyanocobalamin (VITAMIN B-12) 1,000 mcg tab Take 1 tablet by mouth once daily. CPAP Use 10 cm in the nose daily at bedtime. No current facility-administered medications on file prior to visit. Social History Social History Tobacco Use Smoking status: Former Packs/day: 1.00 Years: 20.00 Pack years: 20.00 Types: Cigarettes Quit date: 04/22/1989 Years since quittin.3 Smokeless tobacco: Never Vaping Use Vaping Use: Never used Substance Use Topics Alcohol use: Yes Comment: OCCASIONAL Drug use: No Review of Symptoms REVIEW OF SYSTEMS See hpi EXAM: BP 126/90 (BP Site: Left Arm, BP Position: Sitting, BP Cuff Size: Large Adult) Pulse 62 Temp 36.5 C (97.7 F) Resp 18 Wt 105.2 kg (232 lb) BMI 38.02 kg/m General Appearance: Well appearing, alert, in no acute distress, well-hydrated, well nourished.. Lungs: Lungs clear to auscultation. No wheezing, rhonchi, rales.. Heart: RRR without murmur, gallop, or rubs. No ectopy. Health Maintenance List BP CONTROLLED (<130/80) Never done DTAP,TDAP,TD(3 - Td or Tdap) due on 04/06/2015 HBA1C due on 12/29/2022 DIABETIC FOOT EXAM due on 01/01/2023 URINE ALBUMIN:CREATININE RATIO due on 01/02/2023 DILATED RETINAL EXAM due on 02/01/2023 LDL CHOLESTEROL due on 08/14/2023 SERUM CREATININE due on 08/14/2023 HEMOGLOBIN/HEMATOCRIT due on 08/14/2023 ANNUAL PCP TEAM CHRONIC DISEASE VISIT due on 08/16/2023 INFLUENZA Completed ADVANCE DIRECTIVE DISCUSSION Completed DEPRESSION ASSESSMENT Completed HEPATITIS C SCREENING Completed SHINGRIX VACCINE Completed COVID-19 VACCINE Completed PNEUMOCOCCAL: 65+ Completed Data reviewed Orthos: Supine: BP 148/99 P 62 Standing 1 minute: BP 156/85 P 71 Standing 3 min: BP 147/74 P71 ASSESSMENT/PLAN: 1. Lightheadedness - ICD9: 780.4, ICD10: R42 (primary diagnosis) Diastolic ortho still positive however patient's reported symptoms seem more vertigo related. I don't want to decrease meds further as BP is increased currently. Will check echo and Carotid US. But also set up with Physical Therapy for vestibular therapy. Recheck in about 1 month. - ECHO - PERFLUTREN LIPID MICROSPHERES 1.1 MG/ML INJECTION IN NS 10 ML - SODIUM CHLORIDE 0.9 % (FLUSH) INJECTION SYRINGE - US CAROTID ARTERIES [facility] 2. Vertigo - ICD9: 780.4, ICD10: R42 As above - CONSULT TO PHYSICAL THERAPY 3. Dizziness - ICD9: 780.4, ICD10: R42 As above - ECHO - PERFLUTREN LIPID MICROSPHERES 1.1 MG/ML INJECTION IN NS 10 ML - SODIUM CHLORIDE 0.9 % (FLUSH) INJECTION SYRINGE - US CAROTID ARTERIES [facility] 4. Orthostatic hypotension - ICD9: 458.0, ICD10: I95.1 As above. - ECHO - PERFLUTREN LIPID MICROSPHERES 1.1 MG/ML INJECTION IN NS 10 ML - SODIUM CHLORIDE 0.9 % (FLUSH) INJECTION SYRINGE - US CAROTID ARTERIES [facility] Lola Romo PA-C documented in this encounter [facility] 08-29-2022 Note [facility] 08-27-2022 Note HNO ID: [id number] Author: Stephanie Simpson I, MD Service: ? Author Type: Physician Type: Progress Notes Filed: 08/27/2022 12:31 PM Note Text: NEUROSURGERY POST-OP NOTE Stephanie Simpson MD Chair, Clinical Neurosciences Director, Spinal Neurosurgery [facility] Date of visit: August 27, 2022 Patient Name: Mr.Donald Neema Espino Date of : 1945 Current Age: [age] year old Sex: male MRN/E# [id number] Last Office Visit: 07/26/2022 SURGERY: L3-4 laminectomy on 07/12/2022 Pre-Surgical Symptoms: Fatigue in his legs resulting in gait and balance issues. Symptoms appeared claudicant in nature Past Medical/Surgical History: The patient has a history of arthritis, Vitamin B12 deficiency, CAD, esophageal stenosis, HLD, Obesity (39.00), Neuropathy, CKD, DM2(HgbA1c 6.3% 01/01/2022) . He has a prior history of low back surgery. +ASA Smoking: Former Alcohol Use: occasional HPI: Patient was discharged from [facility] on 07/19/2022 to an acute rehab facility with prescription for Keflex x7 days. He presented for his routine 2 week post operative visit with Marisa Iglesias CNP on 07/26/2022 where he had been participating in therapy at rehab in [place]. He felt like he was gradually gaining strength in lower extremities and was ambulating with wheeled walker. Low back pain was tolerable with use of Tylenol. His incision had a small < 1cm area of superficial dehiscence at proximal aspect of incision with mild erythema, no drainage. He was started on doxycyline for 7 days as well as using xeroform and gauze to cover incision. Activity restrictions were enforced and he was requested to follow up in 4 weeks. Patient is having their 6 week post operative visit. He states that he has been doing well since his last visit. He reports mild back and hip pain when he first gets up in the morning. He feels that the strength in his legs is slowly coming back. He does still get fatigued easily. He has been home since 08/01/2022 and has not been in physical therapy since returning home from rehab. His incision is dry and intact. There is some mild erythema and scabbing at the bottom of his incision. Denies any drainage, fevers, chills. He is taking Tylenol for pain with some relief. He presents today for evaluation and plan of care. Incision: dry, intact, mild erythema noted, scabbing at the bottom of the incision Current Outpatient Medications Medication Sig Dispense Refill gabapentin (NEURONTIN) 100 mg capsule Take 2 capsules by mouth three times daily for 90 days. Along with your 800 mg three times a day for a total of 1000 mg three times a day. [address] (PROTONIX) 40 mg tablet Take 40 mg by mouth once daily. HYDROcodone-acetaminophen (NORCO) 5-325 mg per tablet Take 1 tablet by mouth every 6 hours as needed for pain. heparin 5,000 unit/mL injection Inject 1 mL subcutaneously every 12 hours. cyclobenzaprine (FLEXERIL) 10 mg tablet Take 1 tablet by mouth three times daily. bisacodyl (DULCOLAX) 10 mg supp 1 Suppository by RECTAL route once daily as needed. polyethylene glycol 3350 17 gram packet Take 1 Packet by mouth once daily. Dissolve dose in 4 - 8 ounces of liquid and take as directed. magnesium hydroxide (MOM) 400 mg/5 mL suspension Take 30 mL by mouth twice daily as needed. docusate sodium (COLACE) 100 mg capsule Take 1 capsule by mouth twice daily. ondansetron, PF, (ZOFRAN) 4 mg/2 mL soln Inject 4 mg intravenously every 6 hours as needed. ondansetron (ZOFRAN) 4 mg tablet Take 1 tablet by mouth every 6 hours as needed. acetaminophen (TYLENOL) 325 mg tablet Take 1-2 tablets by mouth every 4 hours as needed for pain. oxybutynin ER (DITROPAN XL) 10 mg 24 hr tablet Take 1 tablet by mouth once daily. For overactive bladder 90 tablet 1 losartan (COZAAR) 50 mg tablet Take 1 tablet by mouth once daily. 90 tablet 1 CPAP/BIPAP/OTHER New set up: Settings 7 - 20 cm H2O, suitable mask per pt preference (nasal mask), chin strap, head gear, humidity, tubing, lifetime supplies. G47.33 FUAD 1 Each 0 omeprazole (PRILOSEC) 40 mg capsule Take 1 capsule by mouth once daily. 90 capsule 1 metFORMIN (GLUCOPHAGE) 1,000 mg tablet Take 1 tablet by mouth twice daily with meals. 180 tablet 1 hydroCHLOROthiazide (HYDRODIURIL, ESIDRIX) 12.5 mg tablet Take 1 tablet by mouth once daily. 90 tablet 1 gabapentin (NEURONTIN) 400 mg capsule Take 2 capsules by mouth three times daily for 180 days. 540 capsule 1 simvastatin (ZOCOR) 10 mg tablet Take 1 tablet by mouth daily at bedtime. 90 tablet 1 cyanocobalamin (VITAMIN B-12) 1,000 mcg tab Take 1 tablet by mouth once daily. 0 CPAP Use 10 cm in the nose daily at bedtime. 0 No current facility-administered medications for this visit. Objective Review of Systems Constitutional: Negative for chills, diaphoresis and fever. HENT: Negative for sinus pressure, sinus pain and trouble swallowing. Eyes: (more content not included)... [facility] 08-27-2022 History of Present illness Narrative NEUROSURGERY POST-OP NOTE Stephanie Simpson MD Chair, Clinical Neurosciences Director, Spinal Neurosurgery [facility] Date of visit: August 27, 2022 Patient Name: Mr.Donald Neema Espino Date of : 1945 Current Age: [age] year old Sex: male MRN/E# [id number] Last Office Visit: 07/26/2022 SURGERY: L3-4 laminectomy on 07/12/2022 Pre-Surgical Symptoms: Fatigue in his legs resulting in gait and balance issues. Symptoms appeared claudicant in nature Past Medical/Surgical History: The patient has a history of arthritis, Vitamin B12 deficiency, CAD, esophageal stenosis, HLD, Obesity (39.00), Neuropathy, CKD, DM2(HgbA1c 6.3% 01/01/2022) . He has a prior history of low back surgery. +ASA Smoking: Former Alcohol Use: occasional HPI: Patient was discharged from [facility] on 07/19/2022 to an acute rehab facility with prescription for Keflex x7 days. He presented for his routine 2 week post operative visit with Marisa Iglesias CNP on 07/26/2022 where he had been participating in therapy at rehab in [place]. He felt like he was gradually gaining strength in lower extremities and was ambulating with wheeled walker. Low back pain was tolerable with use of Tylenol. His incision had a small < 1cm area of superficial dehiscence at proximal aspect of incision with mild erythema, no drainage. He was started on doxycyline for 7 days as well as using xeroform and gauze to cover incision. Activity restrictions were enforced and he was requested to follow up in 4 weeks. Patient is having their 6 week post operative visit. He states that he has been doing well since his last visit. He reports mild back and hip pain when he first gets up in the morning. He feels that the strength in his legs is slowly coming back. He does still get fatigued easily. He has been home since 08/01/2022 and has not been in physical therapy since returning home from rehab. His incision is dry and intact. There is some mild erythema and scabbing at the bottom of his incision. Denies any drainage, fevers, chills. He is taking Tylenol for pain with some relief. He presents today for evaluation and plan of care. Incision: dry, intact, mild erythema noted, scabbing at the bottom of the incision Current Outpatient Medications Medication Sig Dispense Refill gabapentin (NEURONTIN) 100 mg capsule Take 2 capsules by mouth three times daily for 90 days. Along with your 800 mg three times a day for a total of 1000 mg three times a day. [address] (PROTONIX) 40 mg tablet Take 40 mg by mouth once daily. HYDROcodone-acetaminophen (NORCO) 5-325 mg per tablet Take 1 tablet by mouth every 6 hours as needed for pain. heparin 5,000 unit/mL injection Inject 1 mL subcutaneously every 12 hours. cyclobenzaprine (FLEXERIL) 10 mg tablet Take 1 tablet by mouth three times daily. bisacodyl (DULCOLAX) 10 mg supp 1 Suppository by RECTAL route once daily as needed. polyethylene glycol 3350 17 gram packet Take 1 Packet by mouth once daily. Dissolve dose in 4 - 8 ounces of liquid and take as directed. magnesium hydroxide (MOM) 400 mg/5 mL suspension Take 30 mL by mouth twice daily as needed. docusate sodium (COLACE) 100 mg capsule Take 1 capsule by mouth twice daily. ondansetron, PF, (ZOFRAN) 4 mg/2 mL soln Inject 4 mg intravenously every 6 hours as needed. ondansetron (ZOFRAN) 4 mg tablet Take 1 tablet by mouth every 6 hours as needed. acetaminophen (TYLENOL) 325 mg tablet Take 1-2 tablets by mouth every 4 hours as needed for pain. oxybutynin ER (DITROPAN XL) 10 mg 24 hr tablet Take 1 tablet by mouth once daily. For overactive bladder 90 tablet 1 losartan (COZAAR) 50 mg tablet Take 1 tablet by mouth once daily. 90 tablet 1 CPAP/BIPAP/OTHER New set up: Settings 7 - 20 cm H2O, suitable mask per pt preference (nasal mask), chin strap, head gear, humidity, tubing, lifetime supplies. G47.33 FUAD 1 Each 0 omeprazole (PRILOSEC) 40 mg capsule Take 1 capsule by mouth once daily. 90 capsule 1 metFORMIN (GLUCOPHAGE) 1,000 mg tablet Take 1 tablet by mouth twice daily with meals. 180 tablet 1 hydroCHLOROthiazide (HYDRODIURIL, ESIDRIX) 12.5 mg tablet Take 1 tablet by mouth once daily. 90 tablet 1 gabapentin (NEURONTIN) 400 mg capsule Take 2 capsules by mouth three times daily for 180 days. 540 capsule 1 simvastatin (ZOCOR) 10 mg tablet Take 1 tablet by mouth daily at bedtime. 90 tablet 1 cyanocobalamin (VITAMIN B-12) 1,000 mcg tab Take 1 tablet by mouth once daily. 0 CPAP Use 10 cm in the nose daily at bedtime. 0 No current facility-administered medications for this visit. Objective Review of Systems Constitutional: Negative for chills, diaphoresis and fever. HENT: Negative for sinus pressure, sinus pain and trouble swallowing. Eyes: Negative for pain, redness and visual disturbance. Respiratory: Negative for cough, shortness of breath and wheezing. Cardiovascular: Negative for chest pain, palpitations and leg swelling. Gastrointestinal: Negative for constipation, diarrhea and nausea. Endocrine: Negative for cold intolerance and heat intolerance. Genitourinary: Negative for difficulty urinating, frequency and urgency. Musculoskeletal: Positive for back pain. Negative for gait problem. Skin: Negative for color change, pallor and rash. Allergic/Immunologic: Negative for environmental allergies, food allergies and immunocompromised state. Neurological: Negative for weakness, numbness and headaches. Hematological: Does not bruise/bleed easily. Psychiatric/Behavioral: Negative for agitation, behavioral problems and confusion. On examination today in clinic the patient is neurologically intact. WOUND ASSESSMENT: dry, intact, mild erythema noted, scabbing at the bottom of the incision PAIN EVALUATION No data found in the last 1 encounters. Data Review: IMAGING STUDIES: No new imaging Assessment & Plan: Overall this patient has done quite well postoperatively. Continues to struggle with a shuffling gait. I think he is still recovering. He is bladder issues have apparently consistently resolved. I am a little concerned about his incision. Looks like it scabbed over. I think it slow to heal. I asked his to keep an eye on it and certainly if it worsens to let us know. I will plan to see him back in 6 weeks time. In the meantime I am going to send him to physical therapy to help with balance gait training particular as well as some core muscle strengthening. The following portions of the patient's history were reviewed, confirmed, and updated as necessary: allergies, current medications, past family history, past medical history, past social history, past surgical history, problem list, HPI, and ROS obtained by others. Some elements may be copied from a previous office note and have been reviewed/updated where appropriate. All portions reflect current medical decision making from today. The clinical and radiographic findings as well as the risks, benefits and alternatives of treatment have been reviewed in detail with the patient. Advised to call the office if symptoms worsen or new symptoms develop. Patient expressed understanding and is in agreement with plan. Stephanie Simpson MD Chair, Clinical Neurosciences Director, Spinal Neurosurgery [facility] This note was partially generated using [employer] voice recognition system, and there may be some incorrect words, spellings, and punctuation that were not noted in checking the note before saving. documented in this encounter [facility] 08-16-2022 Note [facility] 08-16-2022 History of Present illness Narrative Images from the original note were not included. [facility] Virtual Visit Follow up/ Established patient visit Date of last visit : 05/17/2022 IMPRESSION/PLAN: G47.33 Obstructive sleep apnea syndrome (primary encounter diagnosis) Essie Espino is a 76 year old male who presents to sleep medicine today in need of a replacement machine. His current machine is greater than 5 years old and is now broken. Patient has been established with [facility] in [place] and been obtaining monthly supplies. Will set him up with AutoPAP to forgo need to return to lab for PAP titration. - Will start Auto CPAP 7-20 cmH2O with a Nasal mask. - I will have a prescription sent to a [employer] company - [employer] who will be calling you in the next 1-2 weeks or so. Please call them directly or us if you do not hear from them in this time frame. - You should be eligible for new supplies approximately every 3-6 months, depending on your insurance coverage. - If your mask doesn't fit well, call the [employer] company before 30 days are up to get a new mask without an additional charge. - Insurance requires regular usage and periodic office follow ups for PAP therapy, to continue to cover supplies. INSURANCE REQUIREMENTS: - Your insurance requires a [id number] follow up visit within a 31-90 day period after starting CPAP. - Your insurance requires compliance with CPAP, which is at least 4 hours per night for 70% of the time. This must be done over a 30 day period and must occur within the initial 31-90 day period after starting CPAP. - Your insurance also requires at least yearly follow ups to continue to pay for CPAP supplies. Follow up in 3 month(s). Mary Do APRN.BAG PRESSER This visit was conducted as a virtual visit, with patient's permission, via zoom. It required patient-provider interaction for the medical decision making as documented below. Patient stated name and Patient location Patient home in [place] I have communicated my name and active licensure. The patient's identity and physical location were verified at the time of this visit. Either the patient or their legal automotive leasing sales representative has been informed of the risks and benefits of -- and alternatives to -- treatment through a remote evaluation and consents to proceed with the evaluation remotely. Interval history : 77 yo male here for follow up for FUAD on CPAP with use and benefits noted. He was hospitalized recently, and had about 3 weeks without use. SLEEP APNEA Sleep apnea type : FUAD, Most Recent Apnea-Hypopnea Index (AHI): scanned into [employer]ap Treatment : PAP therapy DME: [facility] PAP History: Current PAP settin-20 cm H2O. Difficulties with AutoPAP: None Reviewed objective PAP compliance data: scanned into Yap Mask issues: None Uses chin strap: No Uses ramp function: Yes Uses humidity: Yes There is a perceived benefit by the patient SLEEP FUNCTIONAL OUTCOME MEASURES Reviewed PMH, PSH, SH: Reviewed SLEEP RELATED ROS REVIEW OF SYSTEMS SLEEP RELATED ROS GENERAL: See HPI HEENT: negative nasal congestion RESPIRATORY: negative dyspnea CARDIOVASCULAR: negative chest pain MUSCULOSKELETAL: negative generalized body pain SKIN: negative mask irritation PSYCH: negative depression and suicidal thoughts ENDOCRINE: negative thyroid problems All other systems reviewed and are negative. ALLERGIES Allergen Reactions Chlorhexidine Gluco* Shortness of Breath Lisinopril Cough Penicillins Intolerance thinks he has had PCN without complication CURRENT MEDICATIONS: simvastatin (ZOCOR) 10 mg tablet Take 1 tablet by mouth daily at bedtime. gabapentin (NEURONTIN) 100 mg capsule Take 2 capsules by mouth three times daily for 90 days. Along with your 800 mg three times a day for a total of 1000 mg three times a day. pantoprazole DR (PROTONIX) 40 mg tablet Take 40 mg by mouth once daily. acetaminophen (TYLENOL) 325 mg tablet Take 1-2 tablets by mouth every 4 hours as needed for pain. oxybutynin ER (DITROPAN XL) 10 mg 24 hr tablet Take 1 tablet by mouth once daily. For overactive bladder losartan (COZAAR) 50 mg tablet Take 1 tablet by mouth once daily. CPAP/BIPAP/OTHER New set up: Settings 7 - 20 cm H2O, suitable mask per pt preference (nasal mask), chin strap, head gear, humidity, tubing, lifetime supplies. G47.33 FUAD omeprazole (PRILOSEC) 40 mg capsule Take 1 capsule by mouth once daily. metFORMIN (GLUCOPHAGE) 1,000 mg tablet Take 1 tablet by mouth twice daily with meals. gabapentin (NEURONTIN) 400 mg capsule Take 2 capsules by mouth three times daily for 180 days. cyanocobalamin (VITAMIN B-12) 1,000 mcg tab Take 1 tablet by mouth once daily. CPAP Use 10 cm in the nose daily at bedtime. PHYSICAL EXAMINATION: General appearance: awake alert in NAD Mental status: normal Constitutional: Normal IMPRESSION: Obstructive sleep apnea syndrome (primary encounter diagnosis) 77 yo male here for follow up for FUAD on CPAP with use and benefits noted. He was hospitalized recently, and had about 3 weeks without use. He does have complaints of generalized fatigue, but sleep apnea is well controlled. On KP questionnaire, he is negative for EDS. We discussed healing, lifestyle modifications, and promotion of healthy living. PLAN: - Continue Auto CPAP - Remember to clean your mask and equipment regularly, as directed. - You should be eligible for new supplies approximately every 3-6 months, depending on your insurance coverage. Contact your Durable Medical Equipment (DME) company for new supplies as needed. - Follow up in 6-12 months Mary Do APRN.EUGENIO I spent a total of 25 minutes on the date of the service which included preparing to see the patient, [id number] patient care, completing clinical documentation, obtaining and/or reviewing separately obtained history, counseling and educating the patient/family/caregiver, and communicating results to the patient/family/caregiver. documented in this encounter [facility] 08-16-2022 Miscellaneous Notes Images from the original note were not included. documented in this encounter [facility] 08-15-2022 Note [facility] 08-15-2022 Instructions Yosef Whitaker MD - 08/15/2022 12:56 PM EDT Please bring in copies of your power of deputy commonwealth's attorney for health care and living will. Stop the hydrochlorothiazide. Please get labs and urine test done on or after 02/01/2023 prior to your next visit. documented in this encounter [facility] 08-15-2022 History of Present illness Narrative Chief Complaint Patient presents with: F/U 6 months HPI Essie Espino is a 77 year old male who presents here today for 6 month follow up. Office visit - 6 month follow up Patient with Hx of DM type 2, B12 def, CAD, GERD, Hypertension, Hyperlipidemia, obesity, neuropathy along with those reviewed and addressed below and in ROS. Patient has been getting dizziness when bending over, headaches x couple weeks and feels tired. No chest pain or shortness of breath. Did start new CPAP machine and sleeps through the night but is waking up fatigued. Patient did have his surgery and is feeling better there, knows it will take some time to heal. Office visit - D/C from [place] 08/13/2022 Patient had surgery, laminectomy, on 07/12. He was discharge to [facility] where he received Physical Therapy per surgery recommendation He was discharged from there on 08/01/2022. Patient and states that he had labs the day before being discharged that showed mildly low potassium. Has had some fatigue but otherwise feels like he is progressing well. Has follow up with surgeon on August 27. States he lost 16lbs. Has put some of the weight back on. Didn't have a great appetite while in SNF. Last 4 Encounter Wt Readings: Date: Wt: 08/13/2022 101.6 kg (224 lb) 07/27/2022 106.1 kg (234 lb) 07/26/2022 108 kg (238 lb) 07/04/2022 106.6 kg (235 lb) Past medical history, appointments, medications, allergies reviewed. Previous Medical History PAST MEDICAL HISTORY Diagnosis Date Advance directive discussed with patient 01/01/2022 Discussed 12/2021 Arthritis B12 deficiency 04/06/2015 Bilateral leg edema 06/28/2021 Coronary artery disease Diabetic eye exam (HCC) 11/01/2013 Last done:05/20/2018 Diverticulosis of large intestine without hemorrhage Elevated LFTs 12/11/2016 Elevated PSA 12/30/2018 Esophageal stenosis 08/20/2016 Essential hypertension, benign 01/25/2005 Ex-smoker 08/08/2016 US: 08/15/2016 no AAA Fatty liver 09/28/2008 CT showed diffuse fatty infiltration (incidental on CT chest) Mildly elevated LFT's since 01/26 GERD without esophagitis 06/27/2020 Internal hemorrhoids without mention of complication Leg pain, bilateral 12/28/2020 Living will on file 01/01/2022 DPA: Stacey () Medicare annual wellness visit, subsequent 12/18/2017 Medicare Part B: 06/20/2010 last done: 12/30/2018 Mixed hyperlipidemia 11/01/2013 Morbid obesity due to excess calories ([facility]) 04/06/2015 Neuropathy 10/31/2013 Had low back surgery 2010 for disc herniation and has had numbness in his toes since then. Obesity, Class II, BMI 35-39.9 04/06/2015 Obstructive sleep apnea syndrome 04/06/2015 CPAP with good success Pain of both hip joints 02/06/2019 PMH - PAST MEDICAL HISTORY OF 02/2008 release nerves in back Seborrheic keratoses, inflamed 08/10/2015 Left temporal and right check Spinal stenosis of lumbar region Spinal stenosis of lumbar region Stage 3a chronic kidney disease ([facility]) 02/01/2022 Type 2 diabetes mellitus with diabetic polyneuropathy, without long-term current use of insulin ([facility]) 12/12/2015 Urge incontinence 08/10/2015 VENTRICULAR TACHYCARDIA, PAROXYSMAL 07/04/2005 Previous Surgical History PAST SURGICAL HISTORY Procedure Laterality Date APPENDECTOMY BACK SURGERY HX 2007 BACK SURGERY HX 07/12/2022 L3-4 Laminectomy CHOLECYSTECTOMY Cholecystectomy COLONOSCOPY FLX DX W/COLLJ SPEC WHEN PFRMD 11/07/2005 Colonoscopy recheck 10 yrs COLONOSCOPY FLX DX W/COLLJ SPEC WHEN PFRMD 07/29/2017 Colonoscopy EGD 05/16/2020 ESOPHAGOGASTRODUODENOSCOPY TRANSORAL DIAGNOSTIC 03/23/2013 EGD EYE SURGERY HX FECAL OCCULT BLOOD TEST 12/14/2016 negative PAST SURGICAL HISTORY OF 03/2008 lumbar decompression, [facility] PAST SURGICAL HISTORY OF 09/2014 left cataract PAST SURGICAL HISTORY OF 2007 right cataract PAST SURGICAL HISTORY OF Left 09/02/2018 partial medial and lateral menisectomy, loose body removal. TONSILLECTOMY HX Family History FAMILY HISTORY Problem Relation Age of Onset Coronary Artery Disease Father age 68; heavy EtOH use Alcohol/Drug Father alcoholism Diabetes Paternal Grandmother Prostate Cancer Other none Colon Cancer Other none known Dementia Paternal Uncle identicle twin to pt's father Patient Allergies ALLERGIES Allergen Reactions Chlorhexidine Gluco* Shortness of Breath Lisinopril Cough Penicillins Intolerance thinks he has had PCN without complication Current Medications Current Outpatient Medications on File Prior to Visit Medication Sig simvastatin (ZOCOR) 10 mg tablet Take 1 tablet by mouth daily at bedtime. gabapentin (NEURONTIN) 100 mg capsule Take 2 capsules by mouth three times daily for 90 days. Along with your 800 mg three times a day for a total of 1000 mg three times a day. pantoprazole DR (PROTONIX) 40 mg tablet Take 40 mg by mouth once daily. acetaminophen (TYLENOL) 325 mg tablet Take 1-2 tablets by mouth every 4 hours as needed for pain. oxybutynin ER (DITROPAN XL) 10 mg 24 hr tablet Take 1 tablet by mouth once daily. For overactive bladder losartan (COZAAR) 50 mg tablet Take 1 tablet by mouth once daily. CPAP/BIPAP/OTHER New set up: Settings 7 - 20 cm H2O, suitable mask per pt preference (nasal mask), chin strap, head gear, humidity, tubing, lifetime supplies. G47.33 FUAD omeprazole (PRILOSEC) 40 mg capsule Take 1 capsule by mouth once daily. metFORMIN (GLUCOPHAGE) 1,000 mg tablet Take 1 tablet by mouth twice daily with meals. hydroCHLOROthiazide (HYDRODIURIL, ESIDRIX) 12.5 mg tablet Take 1 tablet by mouth once daily. gabapentin (NEURONTIN) 400 mg capsule Take 2 capsules by mouth three times daily for 180 days. cyanocobalamin (VITAMIN B-12) 1,000 mcg tab Take 1 tablet by mouth once daily. CPAP Use 10 cm in the nose daily at bedtime. No current facility-administered medications on file prior to visit. Social History Social History Tobacco Use Smoking status: Former Packs/day: 1.00 Years: 20.00 Pack years: 20.00 Types: Cigarettes Quit date: 04/22/1989 Years since quittin.3 Smokeless tobacco: Never Vaping Use Vaping Use: Never used Substance Use Topics Alcohol use: Yes Comment: OCCASIONAL Drug use: No Review of Symptoms REVIEW OF SYSTEMS GENERAL: malaise or fevers. Some weight loss after his surgery NECK: Negative for lumps, goiter, pain and significant neck swelling RESPIRATORY: Negative for cough, hemoptysis, wheezing, COPD, dyspnea or shortness of breath. Has been having a cough for two weeks with chunky yellow/green mucus. No blood CARDIOVASCULAR: Negative for chest pain, leg swelling, hypertension, CHF or palpitations GI: No nausea, vomiting, or diarrhea and No heartburn or reflux symptoms : No history of dysuria, blood ENDOCRINE: Negative for low BS's NEURO: No history of headaches, syncope, paralysis, seizures or tremors Depression Screening 05/16/2022 06/01/2022 06/11/2022 08/15/2022 PHQ-2 Score 0 2 0 0 PHQ-9 Score 1 8 2 - IRIS-2 Total Score - 2 0 - IRIS-7 Total Score - 4 2 - Depression screening tool completed and reviewed. Based on score and interview, patient is not at risk for depression. Screening tool discussed with patient, and I recommended no further intervention at this time. EXAM: BP 130/70 (BP Site: Right Arm, BP Position: Sitting, BP Cuff Size: Large Adult) Pulse 70 Temp 36.6 C (97.9 F) (Tympanic) Resp 18 Wt 102.1 kg (225 lb) SpO2 97% BMI 36.87 kg/m Last 8 Encounter Wt Readings: Date: Wt: 08/15/2022 102.1 kg (225 lb) 08/13/2022 101.6 kg (224 lb) 07/27/2022 106.1 kg (234 lb) 07/26/2022 108 kg (238 lb) 07/04/2022 106.6 kg (235 lb) 06/29/2022 106.1 kg (234 lb) 06/28/2022 105.2 kg (232 lb) 06/18/2022 108.3 kg (238 lb 12.1 oz) General Appearance: Well appearing, alert, in no acute distress, well-hydrated, well nourished.. Eyes: Anicteric sclera. Pupils are equally round and reactive to light. Extraocular movements are intact. . Neck: Supple, no adenopathy; thyroid symmetric, normal size, no bruits. Lungs: Lungs clear to auscultation. No wheezing, rhonchi, rales.. Heart: RRR without murmur, gallop, or rubs. No ectopy. Abdomen: Normal abdominal exam, Abdomen soft, non-tender. Bowel sounds normal. No masses, organomegaly. Extremities: No deformities, edema, skin discoloration, Good capillary refill. . Musculoskeletal: No joint swelling, deformity, or tenderness. Peripheral Pulses: Normal. Neurologic: Gait normal. Sensation to light touch and crainal nerves 2-12 intact.. Health Maintenance List DTAP,TDAP,TD(3 - Td or Tdap) due on 04/06/2015 ADVANCE DIRECTIVE DISCUSSION due on 04/22/2022 DEPRESSION ASSESSMENT Never done HBA1C due on 12/29/2022 DIABETIC FOOT EXAM due on 01/01/2023 URINE ALBUMIN:CREATININE RATIO due on 01/02/2023 DILATED RETINAL EXAM due on 02/01/2023 LDL CHOLESTEROL due on 08/14/2023 ANNUAL PCP TEAM CHRONIC DISEASE VISIT due on 08/14/2023 SERUM CREATININE due on 08/14/2023 HEMOGLOBIN/HEMATOCRIT due on 08/14/2023 BP CONTROLLED (<130/80) due on 08/14/2023 INFLUENZA Completed HEPATITIS C SCREENING Completed SHINGRIX VACCINE Completed COVID-19 VACCINE Completed PNEUMOCOCCAL: 65+ Completed Data reviewed Ortho's: were poitive. Component Latest Ref Rng & Units 01/01/2022 01/02/2022 06/28/2022 08/13/2022 WBC 3.70 - 11.00 k/uL 9.44 9.22 7.62 RBC 4.20 - 6.00 m/uL 4.25 4.30 4.08 (L) Hemoglobin 13.0 - 17.0 g/dL 12.7 (L) 12.7 (L) 12.6 (L) Hematocrit 39.0 - 51.0 % 40.7 40.7 39.7 MCV 80.0 - 100.0 fL 95.8 94.7 97.3 MCH 26.0 - 34.0 pg 29.9 29.5 30.9 MCHC 30.5 - 36.0 g/dL 31.2 31.2 31.7 RDW-CV 11.5 - 15.0 % 14.2 14.3 15.5 (H) Platelet Count 150 - 400 k/uL 261 233 220 MPV 9.0 - 12.7 fL 10.6 10.7 11.2 Neut% % 56.8 57.1 Abs Neut (ANC) 1.45 - 7.50 k/uL 5.36 4.36 Lymph% % 25.6 25.1 Abs Lymph 1.00 - 4.00 k/uL 2.42 1.91 [place]% % 8.8 8.4 Abs [place] <0.87 k/uL 0.83 0.64 Eosin% % 7.5 8.4 Abs Eosin <0.46 k/uL 0.71 (H) 0.64 (H) Baso% % 1.0 0.7 Abs Baso <0.11 k/uL 0.09 0.05 Immature Gran % % 0.3 0.3 IMMATURE GRANS (ABS) <0.10 k/uL 0.03 <0.03 NRBC /100 WBC 0.0 0.0 Absolute nRBC <0.01 k/uL <0.01 <0.01 <0.01 DTYPE Auto Auto Protein, Total 6.3 - 8.0 g/dL 6.9 7.0 6.6 Albumin 3.9 - 4.9 g/dL 4.6 4.5 4.1 Calcium 8.5 - 10.2 mg/dL 9.9 9.9 9.2 Bilirubin, Total 0.2 - 1.3 mg/dL 0.2 0.2 0.2 Alkaline Phosphatase 38 - 113 U/L 48 55 54 AST 14 - 40 U/L 32 52 (H) 39 ALT 10 - 54 U/L 53 69 (H) 43 Glucose 74 - 99 mg/dL 91 105 (H) 105 (H) BUN 9 - 24 mg/dL 31 (H) 36 (H) 33 (H) Creatinine 0.73 - 1.22 mg/dL 1.42 (H) 1.24 (H) 1.30 (H) Sodium 136 - 144 mmol/L 140 138 141 Potassium 3.7 - 5.1 mmol/L 4.8 4.9 4.5 Chloride 97 - 105 mmol/L 99 99 101 CO2 22 - 30 mmol/L 24 26 25 Anion Gap 9 - 18 mmol/L 17 13 15 eGFR >=60 mL/min/1.73m 51 (L) 60 57 (L) Color Yellow Yellow Clarity Clear Clear Glucose, Urine Negative Negative Bilirubin, Urine Negative Negative Ketones, Urine Negative Negative Specific [place], Ur 1.005 - 1.030 1.026 Hemoglobin/Blood,Ur Negative Negative pH, Urine 5.0 - 8.0 5.0 Protein, Urine Negative Negative Urobilinogen Negative 1+ (A) Nitrites Negative Negative Leukest Negative 2+ (A) WBC, Urine 0-5 /HPF 0-5 /HPF RBC, Urine 0-3 /HPF 0-3 /HPF Epithelial Cells /HPF Few Total Cholesterol, Nonfasting <200 mg/dL 147 139 Triglycerides, Nonfasting <150 mg/dL 235 (H) 236 (H) HDL Cholesterol, Nonfasting >39 mg/dL 34 (L) 37 (L) LDL Cholesterol, Nonfasting <100 mg/dL 66 55 Non HDL Cholesterol, Nonfasting <130 mg/dL 113 102 VLDL Cholesterol, Nonfasting <30 mg/dL 47 (H) 47 (H) Total Chol/HDL Ratio, Nonfasting <5.10 mg/dL 4.32 3.76 LDL/HDL Ratio, Nonfasting <2.54 mg/dL 1.94 1.49 Creatinine, Ur Random (UCRR) 20.0 - 300.0 mg/dL 150.6 Albumin, Urine Random mg/L <12.0 Albumin/Creat Ratio <30 mg/g <8 Hemoglobin A1C 4.3 - 5.6 % 6.3 (H) 6.3 (H) Estimated Average Glucose mg/dL 134 134 Vitamin B12 232 - 1,245 pg/mL 1,252 (H) PSA <2.60 ng/mL 3.02 (H) Magnesium 1.7 - 2.3 mg/dL 1.8 TSH 0.270 - 4.200 mIU/L 1.680 A/P ASSESSMENT/PLAN: 1. Type 2 diabetes mellitus with diabetic polyneuropathy, without long-term current use of insulin (HCC) - ICD9: 250.60, 357.2, ICD10: E11.42 (primary diagnosis) - Controlled - Continue current medications - Counseled on healthy diet and regular exercise - Discussed need for and benefit of weight loss. BMI 36.87 kg/(m^2) 2. Diabetic eye exam (HCC) - ICD9: V72.0, 250.00, ICD10: Z01.00, E11.9 - up to date 3. Essential hypertension, benign - ICD9: 401.1, ICD10: I10 - good control - Continue current medication(s) - Discontinue HCTZ - Recommended regular aerobic exercise. - Recommend home blood pressure monitoring, to bring results in on next visit - Goal of BP <130/80 4. Orthostatic hypotension - ICD9: 458.0, ICD10: I95.1 - will stop the HCTZ and f/u in 4 weeks and recheck BP 5. Other hyperlipidemia - ICD9: 272.4, ICD10: E78.49 - controlled with current Tx. 6. Coronary artery disease due to lipid rich plaque - ICD9: 414.00, 414.3, ICD10: I25.10, I25.83 - clinically stable no changes 7. GERD without esophagitis - ICD9: 530.81, ICD10: K21.9 - Continue treatment with Protonix 40 mg QD 8. Bilateral leg edema - ICD9: 782.3, ICD10: R60.0 - none on exam 9. Stage 3a chronic kidney disease (HCC) - ICD9: 585.3, ICD10: N18.31 - stable no changes 10. Neuropathy - ICD9: 355.9, ICD10: G62.9 - stable with Tx. 11. Obstructive sleep apnea syndrome - ICD9: 327.23, ICD10: G47.33 - cont use of CPAP nightly 12. Obesity, Class II, BMI 35-39.9 - ICD9: 278.00, ICD10: E66.9 Weight decreasing - Behavioral intervention 13. B12 deficiency - ICD9: 266.2, ICD10: E53.8 - cont replacement 14. Elevated LFTs - ICD9: 790.6, ICD10: R79.89 - recent labs were normal. 15. Bronchitis - ICD9: 490, ICD10: J40 - viral and seems to be resolving. 16. Advance directive discussed with patient - ICD9: V65.49, ICD10: Z71.89 - up to date F/u 6 months extensive check CMP, Lipid, UA, urine micro albumin, A1c, CBC, B12 Mg and PSA prior. F/y 4 weeks HTN med check and repeat Orthos for dizziness. Yosef Whitaker MD documented in this encounter [facility] 08-13-2022 Note [facility] 08-13-2022 History of Present illness Narrative Chief Complaint Patient presents with: Hospital F/U: Was discharged from [facility]. Was admitted after back surgery HPI Essie Espino is a 77 year old male who presents here today for above concerns.. Patient had surgery, laminectomy, on 07/12. He was discharge to [facility] where he received Physical Therapy per surgery recommendation He was discharged from there on 08/01/2022. Patient and states that he had labs the day before being discharged that showed mildly low potassium. Has had some fatigue but otherwise feels like he is progressing well. Has follow up with surgeon on August 27. States he lost 16lbs. Has put some of the weight back on. Didn't have a great appetite while in SNF. Last 4 Encounter Wt Readings: Date: Wt: 08/13/2022 101.6 kg (224 lb) 07/27/2022 106.1 kg (234 lb) 07/26/2022 108 kg (238 lb) 07/04/2022 106.6 kg (235 lb) Past medical history, appointments, medications, allergies reviewed. Previous Medical History PAST MEDICAL HISTORY Diagnosis Date Advance directive discussed with patient 01/01/2022 Discussed 12/2021 Arthritis B12 deficiency 04/06/2015 Bilateral leg edema 06/28/2021 Coronary artery disease Diabetic eye exam (HCC) 11/01/2013 Last done:05/20/2018 Diverticulosis of large intestine without hemorrhage Elevated LFTs 12/11/2016 Elevated PSA 12/30/2018 Esophageal stenosis 08/20/2016 Essential hypertension, benign 01/25/2005 Ex-smoker 08/08/2016 US: 08/15/2016 no AAA Fatty liver 09/28/2008 CT showed diffuse fatty infiltration (incidental on CT chest) Mildly elevated LFT's since 01/26 GERD without esophagitis 06/27/2020 Internal hemorrhoids without mention of complication Leg pain, bilateral 12/28/2020 Living will on file 01/01/2022 DPA: Stacey () Medicare annual wellness visit, subsequent 12/18/2017 Medicare Part B: 06/20/2010 last done: 12/30/2018 Mixed hyperlipidemia 11/01/2013 Morbid obesity due to excess calories ([facility]) 04/06/2015 Neuropathy 10/31/2013 Had low back surgery 2010 for disc herniation and has had numbness in his toes since then. Obesity, Class II, BMI 35-39.9 04/06/2015 Obstructive sleep apnea syndrome 04/06/2015 CPAP with good success Pain of both hip joints 02/06/2019 PMH - PAST MEDICAL HISTORY OF 02/2008 release nerves in back Seborrheic keratoses, inflamed 08/10/2015 Left temporal and right check Spinal stenosis of lumbar region Spinal stenosis of lumbar region Stage 3a chronic kidney disease ([facility]) 02/01/2022 Type 2 diabetes mellitus with diabetic polyneuropathy, without long-term current use of insulin ([facility]) 12/12/2015 Urge incontinence 08/10/2015 VENTRICULAR TACHYCARDIA, PAROXYSMAL 07/04/2005 Previous Surgical History PAST SURGICAL HISTORY Procedure Laterality Date APPENDECTOMY BACK SURGERY HX 2007 BACK SURGERY HX 07/12/2022 L3-4 Laminectomy CHOLECYSTECTOMY Cholecystectomy COLONOSCOPY FLX DX W/COLLJ SPEC WHEN PFRMD 11/07/2005 Colonoscopy recheck 10 yrs COLONOSCOPY FLX DX W/COLLJ SPEC WHEN PFRMD 07/29/2017 Colonoscopy EGD 05/16/2020 ESOPHAGOGASTRODUODENOSCOPY TRANSORAL DIAGNOSTIC 03/23/2013 EGD EYE SURGERY HX FECAL OCCULT BLOOD TEST 12/14/2016 negative PAST SURGICAL HISTORY OF 03/2008 lumbar decompression, [facility] PAST SURGICAL HISTORY OF 09/2014 left cataract PAST SURGICAL HISTORY OF 2007 right cataract PAST SURGICAL HISTORY OF Left 09/02/2018 partial medial and lateral menisectomy, loose body removal. TONSILLECTOMY HX Family History FAMILY HISTORY Problem Relation Age of Onset Coronary Artery Disease Father age 68; heavy EtOH use Alcohol/Drug Father alcoholism Diabetes Paternal Grandmother Prostate Cancer Other none Colon Cancer Other none known Dementia Paternal Uncle identicle twin to pt's father Patient Allergies ALLERGIES Allergen Reactions Chlorhexidine Gluco* Shortness of Breath Lisinopril Cough Penicillins Intolerance thinks he has had PCN without complication Current Medications Current Outpatient Medications on File Prior to Visit Medication Sig simvastatin (ZOCOR) 10 mg tablet Take 1 tablet by mouth daily at bedtime. gabapentin (NEURONTIN) 100 mg capsule Take 2 capsules by mouth three times daily for 90 days. Along with your 800 mg three times a day for a total of 1000 mg three times a day. pantoprazole DR (PROTONIX) 40 mg tablet Take 40 mg by mouth once daily. acetaminophen (TYLENOL) 325 mg tablet Take 1-2 tablets by mouth every 4 hours as needed for pain. losartan (COZAAR) 50 mg tablet Take 1 tablet by mouth once daily. CPAP/BIPAP/OTHER New set up: Settings 7 - 20 cm H2O, suitable mask per pt preference (nasal mask), chin strap, head gear, humidity, tubing, lifetime supplies. G47.33 FUAD omeprazole (PRILOSEC) 40 mg capsule Take 1 capsule by mouth once daily. metFORMIN (GLUCOPHAGE) 1,000 mg tablet Take 1 tablet by mouth twice daily with meals. hydroCHLOROthiazide (HYDRODIURIL, ESIDRIX) 12.5 mg tablet Take 1 tablet by mouth once daily. gabapentin (NEURONTIN) 400 mg capsule Take 2 capsules by mouth three times daily for 180 days. cyanocobalamin (VITAMIN B-12) 1,000 mcg tab Take 1 tablet by mouth once daily. CPAP Use 10 cm in the nose daily at bedtime. HYDROcodone-acetaminophen (NORCO) 5-325 mg per tablet Take 1 tablet by mouth every 6 hours as needed for pain. (Patient not taking: Reported on 08/13/2022) heparin 5,000 unit/mL injection Inject 1 mL subcutaneously every 12 hours. (Patient not taking: Reported on 08/13/2022) cyclobenzaprine (FLEXERIL) 10 mg tablet Take 1 tablet by mouth three times daily. (Patient not taking: Reported on 08/13/2022) bisacodyl (DULCOLAX) 10 mg supp 1 Suppository by RECTAL route once daily as needed. (Patient not taking: Reported on 08/13/2022) polyethylene glycol 3350 17 gram packet Take 1 Packet by mouth once daily. Dissolve dose in 4 - 8 ounces of liquid and take as directed. (Patient not taking: Reported on 08/13/2022) magnesium hydroxide (MOM) 400 mg/5 mL suspension Take 30 mL by mouth twice daily as needed. (Patient not taking: Reported on 08/13/2022) docusate sodium (COLACE) 100 mg capsule Take 1 capsule by mouth twice daily. (Patient not taking: Reported on 08/13/2022) ondansetron, PF, (ZOFRAN) 4 mg/2 mL soln Inject 4 mg intravenously every 6 hours as needed. (Patient not taking: Reported on 08/13/2022) ondansetron (ZOFRAN) 4 mg tablet Take 1 tablet by mouth every 6 hours as needed. (Patient not taking: Reported on 08/13/2022) oxybutynin ER (DITROPAN XL) 10 mg 24 hr tablet Take 1 tablet by mouth once daily. For overactive bladder No current facility-administered medications on file prior to visit. Social History Social History Tobacco Use Smoking status: Former Packs/day: 1.00 Years: 20.00 Pack years: 20.00 Types: Cigarettes Quit date: 04/22/1989 Years since quittin.3 Smokeless tobacco: Never Vaping Use Vaping Use: Never used Substance Use Topics Alcohol use: Yes Comment: OCCASIONAL Drug use: No Review of Symptoms REVIEW OF SYSTEMS See hpi EXAM: BP 126/62 (BP Site: Right Arm, BP Position: Sitting, BP Cuff Size: Large Adult) Pulse 68 Temp 36.8 C (98.2 F) Resp 18 Wt 101.6 kg (224 lb) BMI 36.71 kg/m General Appearance: Well appearing, alert, in no acute distress, well-hydrated, well nourished. and Obese. Neck: Supple, no adenopathy; thyroid symmetric, normal size, no bruits. Lungs: Lungs clear to auscultation. No wheezing, rhonchi, rales.. Heart: RRR without murmur, gallop, or rubs. No ectopy. Extremities: mild edema noted on LLE (chronic per patient/). No deformities,skin discoloration, clubbing or cyanosis. Good capillary refill. . Peripheral Pulses: Normal. Health Maintenance List DTAP,TDAP,TD(3 - Td or Tdap) due on 04/06/2015 ADVANCE DIRECTIVE DISCUSSION due on 04/22/2022 DEPRESSION ASSESSMENT Never done DILATED RETINAL EXAM due on 06/02/2022 HBA1C due on 12/29/2022 LDL CHOLESTEROL due on 01/01/2023 DIABETIC FOOT EXAM due on 01/01/2023 URINE ALBUMIN:CREATININE RATIO due on 01/02/2023 ANNUAL PCP TEAM CHRONIC DISEASE VISIT due on 07/05/2023 SERUM CREATININE due on 07/18/2023 BP CONTROLLED (<130/80) due on 07/28/2023 INFLUENZA Completed HEPATITIS C SCREENING Completed SHINGRIX VACCINE Completed COVID-19 VACCINE Completed PNEUMOCOCCAL: 65+ Completed Data reviewed ASSESSMENT/PLAN: 1. Mixed hyperlipidemia - ICD9: 272.2, ICD10: E78.2 (primary diagnosis) - to be determined upon return of lab results - Encouraged following a low carbohydrate, healthy oil intake diet. - Continue current therapy. - LIPID PANEL, NONFASTING 2. Type 2 diabetes mellitus with diabetic polyneuropathy, without long-term current use of insulin (HCC) - ICD9: 250.60, 357.2, ICD10: E11.42 A1c 1 month ago shows well controlled diabetes. 3. Essential hypertension, benign - ICD9: 401.1, ICD10: I10 - good control - Continue current medication(s) - Recommended regular aerobic exercise. - Recommend home blood pressure monitoring, to bring results in on next visit - Goal of BP <130/80 - CBC + DIFF 4. Stage 3a chronic kidney disease (HCC) - ICD9: 585.3, ICD10: N18.31 Check labs - COMP METABOLIC PANEL 5. Fatigue, unspecified type - ICD9: 780.79, ICD10: R53.83 Check labs. - TSH BLD Keep routine visit as scheduled Lola Romo PA-C documented in this encounter [facility] 08-03-2022 Miscellaneous Notes Patient has been identified by name and date of : Yes Patient phones for refill(s): Requested Prescriptions Pending Prescriptions Disp Refills gabapentin (NEURONTIN) 100 mg capsule 540 capsule 0 Sig: Take 2 capsules by mouth three times daily for 90 days. Along with your 800 mg three times a day for a total of 1000 mg three times a day. Date of last office visit in primary care: LORENZA 07/04/2022 Appointment scheduled 08/13/22 Last 2 Encounter Wt Readings: Date: Wt: 07/27/2022 106.1 kg (234 lb) 07/26/2022 108 kg (238 lb) Please advise. Thank you. CARLOS Schulte documented in this encounter [facility] 07-31-2022 Miscellaneous Notes Request completed and faxed. Confirmed and filed. Alea Arias Ma Type of letter/form/fax request - Medical Necessity Form received from Christiano magana on 2c floor and placed on [facility] Mary Do's desk for completion. Completed form needs to be faxed to [phone]. [facility] completed for processing documented in this encounter [facility] 07-27-2022 Note [facility] 07-26-2022 Note HNO ID: [id number] Author: Marisa Iglesias APRN.EUGENIO Service: ? Author Type: Nurse Practitioner Type: Progress Notes Filed: 07/27/2022 7:34 AM Note Text: Postoperative Note FLAQUITO Mathew Date of visit: July 26, 2022 Patient Name: Mr.Donald Neema Espino Date of : 1945 Current Age: [age] year old Sex: male MRN/E# [id number] Last Office Visit: 06/11/2022 Postop Lumbar: ASSESSMENT: Surgery Date: 07/12/2022 Surgery Type: L3-4 laminectomy Surgeon: Dr. Simpson Pre-Surgical Symptoms: Fatigue in his legs resulting in gait and balance issues. Symptoms appeared claudicant in nature. CC: Back surgery HPI: Brace type: None. Postop pain control?: Controlled Postop pain control medications?: Acetaminophen ROS: No fevers, chills night sweats, excessive drainage from incision, new neurologic issues. No chest pain, shortness of breath, leg swelling, changes in bowel/bladder. Progress: He was discharged from [facility] on 07/19/2022 to acute rehab facility with prescription for Keflex x7 days. He presents to the office today for routine 2-week postoperative follow-up visit and reports participation in physical therapy at acute rehab facility in [place]. He feels he is gradually gaining strength in lower extremities and has been ambulating at facility with wheeled walker. Low back pain is tolerable with Tylenol. Lower extremities still fatigues easily. He has completed oral Keflex, denies fever or incisional drainage. He denies postoperative constipation. Reports compliance with activity restriction PHYSICAL EXAM: General - Alert,cooperative, appropriate Head: Atraumatic, normocephalic Neck: Supple Resp -Regular and unlabored Gait and Station: In wheelchair. Assist x1 to standing position. Sensory: Sensation intact to light touch Palpation: SPINOUS PROCESS: No pain. PARASPINALS: No pain. Strength: Bilateral upper extremities: 5/5 Bilateral lower extremities: 4/5 Incision: Posterior lumbar incision with small, 1 cm area of superficial dehiscence at proximal aspect of incision without drainage. There is mild surrounding erythema without fluctuance. Sutures removed PLAN: 1.) Activity: Avoid bending, lifting > 10 lbs 2.) Scripts: Doxycycline, Xeroform Proper use and precautions discussed for prescribed medications. 3.) Follow up: -Patient's to send in a picture of incision in 1 week's time -[address] Simpson 4.) Comments: -Patient is overall doing well postoperatively. He does have continued low back pain that is improved from preoperatively and tolerable with Tylenol. He has been participating in physical therapy at senior living facility and feels his strength is gradually improving- ambulating with walker at rehab facility. -Patient has completed postoperative Keflex ( 7 days), incision has small <1cm area of superficial dehiscence at proximal aspect of incision with mild erythema. No drainage. No fevers. Sutures removed today as patient is 14 days postop. Low threshold to treat as patient is diabetic, recommended recommended Doxycycline 100mg bid x7 days. As well as, Xeroform cut to cover incision and cover with 4 x 4 daily. 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 She will contact office in 1 week time and send in picture of incision as patient lives greater than 1 hour away. Asked to contact our office if any new onset of incisional drainage or fevers present -Activity restrictions reinforced including no lifting/pushing/pulling greater than 10 pounds. Avoid bending/twisting at waist. Do not submerge incision underneath water. -Patient should follow-up with [address] Simpson. -Patient asked to contact our office if any new or worsening symptoms arise. All questions answered to the best of my ability. Marisa Iglesias APRN-EUGENIO [facility] This note was partially generated using [employer] voice recognition system, and there may be some incorrect words, spellings, and punctuation that were not noted in checking the note before saving. [facility] 07-26-2022 History of Present illness Narrative Postoperative Note FLAQUITO Mathew Date of visit: July 26, 2022 Patient Name: Mr.Donald Neema Espino Date of : 1945 Current Age: [age] year old Sex: male MRN/E# [id number] Last Office Visit: 06/11/2022 Postop Lumbar: ASSESSMENT: Surgery Date: 07/12/2022 Surgery Type: L3-4 laminectomy Surgeon: Dr. Simpson Pre-Surgical Symptoms: Fatigue in his legs resulting in gait and balance issues. Symptoms appeared claudicant in nature. CC: Back surgery HPI: Brace type: None. Postop pain control?: Controlled Postop pain control medications?: Acetaminophen ROS: No fevers, chills night sweats, excessive drainage from incision, new neurologic issues. No chest pain, shortness of breath, leg swelling, changes in bowel/bladder. Progress: He was discharged from [facility] on 07/19/2022 to acute rehab facility with prescription for Keflex x7 days. He presents to the office today for routine 2-week postoperative follow-up visit and reports participation in physical therapy at acute rehab facility in [place]. He feels he is gradually gaining strength in lower extremities and has been ambulating at facility with wheeled walker. Low back pain is tolerable with Tylenol. Lower extremities still fatigues easily. He has completed oral Keflex, denies fever or incisional drainage. He denies postoperative constipation. Reports compliance with activity restriction PHYSICAL EXAM: General - Alert,cooperative, appropriate Head: Atraumatic, normocephalic Neck: Supple Resp -Regular and unlabored Gait and Station: In wheelchair. Assist x1 to standing position. Sensory: Sensation intact to light touch Palpation: SPINOUS PROCESS: No pain. PARASPINALS: No pain. Strength: Bilateral upper extremities: 5/5 Bilateral lower extremities: 4/5 Incision: Posterior lumbar incision with small, 1 cm area of superficial dehiscence at proximal aspect of incision without drainage. There is mild surrounding erythema without fluctuance. Sutures removed PLAN: 1.) Activity: Avoid bending, lifting > 10 lbs 2.) Scripts: Doxycycline, Xeroform Proper use and precautions discussed for prescribed medications. 3.) Follow up: -Patient's to send in a picture of incision in 1 week's time -[address] Simpson 4.) Comments: -Patient is overall doing well postoperatively. He does have continued low back pain that is improved from preoperatively and tolerable with Tylenol. He has been participating in physical therapy at senior living facility and feels his strength is gradually improving- ambulating with walker at rehab facility. -Patient has completed postoperative Keflex ( 7 days), incision has small <1cm area of superficial dehiscence at proximal aspect of incision with mild erythema. No drainage. No fevers. Sutures removed today as patient is 14 days postop. Low threshold to treat as patient is diabetic, recommended recommended Doxycycline 100mg bid x7 days. As well as, Xeroform cut to cover incision and cover with 4 x 4 daily. 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 She will contact office in 1 week time and send in picture of incision as patient lives greater than 1 hour away. Asked to contact our office if any new onset of incisional drainage or fevers present -Activity restrictions reinforced including no lifting/pushing/pulling greater than 10 pounds. Avoid bending/twisting at waist. Do not submerge incision underneath water. -Patient should follow-up with [address] Simpson. -Patient asked to contact our office if any new or worsening symptoms arise. All questions answered to the best of my ability. Marisa Iglesias APRN-BAG PRESSER [facility] This note was partially generated using [employer] voice recognition system, and there may be some incorrect words, spellings, and punctuation that were not noted in checking the note before saving. documented in this encounter [facility] 07-18-2022 Note [facility] 07-17-2022 Note HNO ID: [id number] Author: Mica Funes RN Service: Care Management Author Type: Registered Nurse Type: Care Mgt Progress Note Filed: 07/17/2022 1:09 PM Note Text: CARE MANAGEMENT DISCHARGE NOTE SERVICE DATE: 07/17/2022 SERVICE TIME: 1:03 PM LOS: 0 days Admission Date: 07/12/2022 DISCHARGE ARRANGEMENT (list agency and phone number) Discharge Arrangement: [facility]-Way Facility CAREGIVER ASSESSMENT: Patient's transition needs and plan for meeting these needs: discharging to SNF HANDOFF COMMUNICATION: Handoff to: Primary Care Physician Primary Care Physician Name/Phone: Yosef Whitaker MD PCP - General, Family Medicine [phone] TRANSPORTATION ARRANGEMENTS: Transportation Arrangements: Ambulance Transportation Agency and Phone #:: [facility] ( [facility] ) [phone] / [phone] Date of Trip: 07/17/22 Time of Trip: 1900 Type of Service: BLS Non-emergency Is Patient Medicaid Pending?: No Was transportation financial coverage discussed with family?: Patient Hand Outside Cutter Location: [facility] Destination: [facility] Financial Care Management Responsibility: None Discharge Information Row Name Admission (Current) from 07/12/2022 in [place] NEURO/CARD [facility] Facility Agency [facility] [facility] Insurance authorization was obtained for patient to discharge to [facility]. Cot transport was scheduled at 7pm. Discussed discharge plans with patient and his . Discharge instructions sent to the facility. Envelope which contains the phone number for nurse to nurse report is next to chart. SIGNATURE: Mica Funes RN PATIENT NAME: Essie Espino DATE: July 17, 2022 TIME: 1:03 PM PAGER/CONTACT #: [phone] [facility] 07-17-2022 Note HNO ID: [id number] Author: Huber No RPh Service: Pharmacy Author Type: Pharmacist Type: Plan of Care Filed: 07/17/2022 11:53 AM Note Text: DISCHARGE MEDICATION REVIEW BY PHARMACY Patient Name: Essie Espino Account #: Data Unavailable Admission Date: 07/12/2022 Date of Contact: July 17, 2022 Time of Contact: 11:52 AM Medication list was reviewed by a Pharmacist for drug interactions or drug related problems:Yes Below is a summary of pharmacist recommendations discussed with LIP: The following medications were discussed with LIP for further review: [place] was ordered at discharge, but pt had not needed any doses over the past 4 days and pain scores have not been elevated. Reached out to NSGY PA to see if we could d/c at discharge. He was agreeable. No additional recommendations I have discussed the recommendations and the medication orders have been addressed by LIP. Huber No [facility] July 17, 2022 11:52 AM Pager: [phone] 07/17/2022 11:52 AM Medication List START taking these medications acetaminophen 325 mg tablet Commonly known as: TYLENOL Take 1-2 tablets by mouth every 4 hours as needed for pain. bisacodyl 10 mg Supp Commonly known as: DULCOLAX 1 Suppository by RECTAL route once daily as needed. cephALEXin 500 mg capsule Commonly known as: KEFLEX Take 1 capsule by mouth every 6 hours for 13 doses. Prophylactic; end date 07/21/2022, has tolerated keflex with no intolerance noted cyclobenzaprine 10 mg tablet Commonly known as: FLEXERIL Take 1 tablet by mouth three times daily. docusate sodium 100 mg capsule Commonly known as: COLACE Take 1 capsule by mouth twice daily. heparin 5,000 unit/mL injection Inject 1 mL subcutaneously every 12 hours. magnesium hydroxide 400 mg/5 mL suspension Commonly known as: MOM Take 30 mL by mouth twice daily as needed. ondansetron (PF) 4 mg/2 mL Soln Commonly known as: ZOFRAN Inject 4 mg intravenously every 6 hours as needed. ondansetron 4 mg tablet Commonly known as: ZOFRAN Take 1 tablet by mouth every 6 hours as needed. polyethylene glycol 3350 17 gram packet Take 1 Packet by mouth once daily. Dissolve dose in 4 - 8 ounces of liquid and take as directed. Start taking on: July 18, 2022 CONTINUE taking these medications CPAP Use 10 cm in the nose daily at bedtime. CPAP/BIPAP/OTHER New set up: Settings 7 - 20 cm H2O, suitable mask per pt preference (nasal mask), chin strap, head gear, humidity, tubing, lifetime supplies. G47.33 FUAD cyanocobalamin 1,000 mcg Tab Commonly known as: VITAMIN B-12 Take 1 tablet by mouth once daily. * gabapentin 100 mg capsule Commonly known as: NEURONTIN Take 2 capsules by mouth three times daily for 90 days. Along with your 800 mg three times a day for a total of 1000 mg three times a day. * gabapentin 400 mg capsule Commonly known as: NEURONTIN Take 2 capsules by mouth three times daily for 180 days. hydroCHLOROthiazide 12.5 mg tablet Take 1 tablet by mouth once daily. losartan 50 mg tablet Commonly known as: COZAAR Take 1 tablet by mouth once daily. metFORMIN 1,000 mg tablet Commonly known as: GLUCOPHAGE Take 1 tablet by mouth twice daily with meals. omeprazole 40 mg capsule Commonly known as: PriLOSEC Take 1 capsule by mouth once daily. oxybutynin ER 10 mg 24 hr tablet Commonly known as: DITROPAN XL Take 1 tablet by mouth once daily. For overactive bladder simvastatin 10 mg tablet Commonly known as: ZOCOR Take 1 tablet by mouth daily at bedtime. * This list has 2 medication(s) that are the same as other medications prescribed for you. Read the directions carefully, and ask your doctor or other care provider to review them with you. STOP taking these medications Aspirin 81 mg Tab diclofenac (EC) 75 mg EC tablet Commonly known as: VOLTAREN [facility] 07-17-2022 Note HNO ID: [id number] Author: Mekhi Carr PA-C Service: Neurosurgery Author Type: Physician Education Supervisor Type: Progress Notes Filed: 07/17/2022 9:49 AM Note Text: Neurosurgery Progress Note SERVICE DATE: 07/16/2022 SUBJECTIVE: NAEON. Denies any new numbness, tingling, weakness. Denies fevers, chills, chest pain, palpitations, shortness of breath OBJECTIVE: Vitals: Temp (24hrs), Av.6 ?C (97.8 ?F), Min:36.3 ?C (97.3 ?F), Max:36.8 ?C (98.2 ?F) BP 133/75 Pulse 84 Temp 36.4 ?C (97.5 ?F) (Oral) Resp 18 Ht 167.6 cm (5' 6 ) Wt 108.3 kg (238 lb 12.1 oz) SpO2 95% BMI 38.54 kg/m? O2 Therapy: Room Air Physical Exam: General - Alert and Oriented x3, cooperative, appropriate. Respiratory- even, unlabored GI - abdomen soft, non-tender, non-distended HEENT - Normocephalic. Atraumatic. Neck/Back - Incision site c//di Neuro - GCS:Opens eyes spontaneously (4),Oriented (5),Obeys motor commands (6) =15 PERRLA, makes eye contact, TM, FS, EOMI Speech: appropriate Motor: SHABAZZ, BUE and BLE 5/5 Sensation: BLE decreased sensation Drift: NT Extremities- Grossly normal. Symmetrical. No edema, deformity, coloration changes. Pulses- 2+ DP, 2+ radial Labs: CBC, Coags, BMP, Mg, Phos Recent Labs 07/17/22 0247 WBC 11.40* HB 12.7* HCT 39.8 PLT 295 NA 132* CHLOR 93* CO2 28 BUN 33* CREAT 0.99 GLUC 205* CA 9.3 CSF AND Dilantin Liver Function, Amylase, AND Lipase Cardiac Enzymes ABGs Diagnostic tests reviewed for today's visit: Most recent labs and imaging results. ASSESSMENT AND PLAN: Active Hospital Problems Diagnosis Date Noted Spinal stenosis, lumbar region without neurogenic claudication 07/15/2022 77 year old male POD #4 L3-4 decompression -Neuro as above -Imaging: NNI -Pain control: continue current regimen -Activity: Ensure progressive mobility -Dressing: reinforce as needed; incision site c/d/I -Added on milk of magnesia and changed miralax to daily; BM yesterday -Brace: No brace -increased cyclobenzaprine to scheduled as this was beneficial for pain -DVT PPX: sub q heparin -Dispo: PT/OT rec SNF; accepted to sita dong and urmila complete. Will discharge this afternoon Medication and Non-Pharmacologic VTE Prophylaxis/Anticoagulants Anticoagulant AND Antiplatelet Medications (From admission, onward) Start Dose Route Frequency Last Action Ordered Stop 07/16/22 0900 heparin 5,000 Units injection 5,000 Units SUBCUTANEOUS EVERY 12 HOURS Given, 07/17 0845 07/16/22 0855 -- 07/14/22 0945 activity - mobilize patient (ma,oh) 07/12/22 1445 vte pharmacologic prophylaxis contraindicated (ma,oh) 07/12/22 1445 pneumatic compression stockings (ma,oh) Parts of this note may have been copied from one of my previous notes and remain pertinent. The documentation has been reviewed and edited as necessary to support the clinical decision making for today's visit. SIGNATURE: Mekhi Carr PA-C PATIENT NAME: Essie Espino DATE: July 16, 2022 TIME: 8:52 AM Pager: [phone] [facility] 07-16-2022 Note HNO ID: [id number] Author: Mica Funes RN Service: Care Management Author Type: Registered Nurse Type: Care Mgt Progress Note Filed: 07/16/2022 11:31 AM Note Text: CARE MANAGEMENT PROGRESS NOTE SERVICE DATE: 07/16/2022 SERVICE TIME: 11:27 AM LOS: 0 days Needs Prior to Discharge: Precertification;Discharge Transportation Patient was accepted by both [facility] and [facility]. Patient and decided on [facility]. Precert was initiated and transport placed on stand by. SIGNATURE: Mica Funes RN PATIENT NAME: Essie Espino DATE: July 16, 2022 TIME: 11:27 AM PAGER/CONTACT #: [phone] [facility] 07-16-2022 Note HNO ID: [id number] Author: Mekhi Carr PA-C Service: Neurosurgery Author Type: Physician Education Supervisor Type: Progress Notes Filed: 07/16/2022 10:15 AM Note Text: Neurosurgery Progress Note SERVICE DATE: 07/16/2022 SUBJECTIVE: NAEON. Is up to chair eating breakfast. In good spirits. Denies any changes to urinary function. Flatus with no BM. Denies fevers, chills, chest pain, palpitations or shortness of breath. Reports lower extremity strength getting back to normal admits to pre-operative neuropathy. OBJECTIVE: Vitals: Temp (24hrs), Av.8 ?C (98.3 ?F), Min:36.5 ?C (97.7 ?F), Max:37.2 ?C (99 ?F) BP 141/80 Pulse 99 Temp 36.5 ?C (97.7 ?F) (Oral) Resp 18 Ht 167.6 cm (5' 6 ) Wt 108.3 kg (238 lb 12.1 oz) SpO2 95% BMI 38.54 kg/m? O2 Therapy: Room Air Physical Exam: General - Alert and Oriented x3, cooperative, appropriate. Respiratory- even, unlabored GI - abdomen soft, non-tender, non-distended HEENT - Normocephalic. Atraumatic. Neck/Back - Incision site c//di Neuro - GCS:Opens eyes spontaneously (4),Oriented (5),Obeys motor commands (6) =15 PERRLA, makes eye contact, TM, FS, EOMI Speech: appropriate Motor: SHABAZZ, BUE and BLE 5/5 Sensation: BLE decreased sensation Drift: NT Extremities- Grossly normal. Symmetrical. No edema, deformity, coloration changes. Pulses- 2+ DP, 2+ radial Labs: CBC, Coags, BMP, Mg, Phos Recent Labs 07/13/22 1001 WBC 13.02* HB 12.6* HCT 39.7 PLT 202 NA 135* K 4.1 CHLOR 97 CO2 28 BUN 15 CREAT 1.03 GLUC 177* CA 9.0 CSF AND Dilantin Liver Function, Amylase, AND Lipase Cardiac Enzymes ABGs Diagnostic tests reviewed for today's visit: Most recent labs and imaging results. ASSESSMENT AND PLAN: Active Hospital Problems Diagnosis Date Noted Spinal stenosis, lumbar region without neurogenic claudication 07/15/2022 77 year old male POD #4 L3-4 decompression -Neuro as above -Imaging: NNI -Pain control: continue current regimen -Activity: Ensure progressive mobility -Dressing: reinforce as needed; incision site c/d/I -Added on milk of magnesia and changed miralax to daily; flatus with no BM yet; may need suppository this afternoon -Brace: No brace -increased cyclobenzaprine to scheduled as this was beneficial for pain -DVT PPX: sub q heparin -Dispo: PT/OT rec SNF; referrals sent out yesterday Medication and Non-Pharmacologic VTE Prophylaxis/Anticoagulants 07/14/22 0945 activity - mobilize patient (ma,oh) 07/12/22 1445 vte pharmacologic prophylaxis contraindicated (ma,oh) 07/12/22 1445 pneumatic compression stockings (ma,or) Parts of this note may have been copied from one of my previous notes and remain pertinent. The documentation has been reviewed and edited as necessary to support the clinical decision making for today's visit. SIGNATURE: Mekhi Carr PA-C PATIENT NAME: Essie Espino DATE: July 16, 2022 TIME: 8:52 AM Pager: [phone] [facility] 07-15-2022 Note HNO ID: [id number] Author: Wily Castañeda APRN.BAG PRESSER Service: Neurosurgery Author Type: Nurse Practitioner Type: Progress Notes Filed: 07/15/2022 12:51 PM Note Text: Neurosurgery Progress Note SERVICE DATE: 07/15/2022 SUBJECTIVE: Patient in bed this AM, wound with new dressing, serous drainage noted on bandage. Able to get patient to side of bed and bedside chair with one assist. OBJECTIVE: Vitals: Temp (24hrs), Av.9 ?C (98.4 ?F), Min:36.6 ?C (97.9 ?F), Max:37.3 ?C (99.1 ?F) BP 140/94 Pulse 103 Temp 37 ?C (98.6 ?F) (Oral) Resp 18 Ht 167.6 cm (5' 6 ) Wt 108.3 kg (238 lb 12.1 oz) SpO2 94% BMI 38.54 kg/m? O2 Therapy: Room Air IANDO: Date 07/14/22 07 - 07/15/22 0659 07/15/22 07 - 07/16/22 0659 Shift 6048-6376 9808-0625 9346-3066 24 Hour Total 5513-4167 2440-0915 6364-3291 24 Hour Total INTAKE Shift Total OUTPUT Urine 100 250 350 Void (ml) 100 250 350 Urine Incontinence/Not Saved 1 x 1 x Urine Not Saved. 1 x 1 x Shift Total 100 250 350 Weight (kg) 108.3 108.3 108.3 108.3 108.3 108.3 108.3 108.3 Medications: Current Facility-Administered Medications Medication Dose Route Frequency cyclobenzaprine 10 mg tab(s) (FLEXERIL) 10 mg ORAL TID HYDROcodone 5 mg - acetaminophen 325 mg tablet (NORCO) 1-2 tablet ORAL q 6 H PRN cephALEXin 500 mg cap(s) (KEFLEX) 500 mg ORAL q 6 H gabapentin 200 mg cap(s) (NEURONTIN) 200 mg ORAL TID gabapentin 800 mg cap(s) (NEURONTIN) 800 mg ORAL TID simvastatin 10 mg tab(s) (ZOCOR) 10 mg ORAL AT BEDTIME losartan 50 mg tab(s) (COZAAR) [address] ORAL DAILY [address]oprazole [address] 40 mg tab(s) (PROTONIX) 40 mg ORAL DAILY hydroCHLOROthiazide 12.5 mg tab(s) 12.5 mg ORAL DAILY morphine 4-6 mg injection 4-6 mg INTRAVENOUS q 2 H PRN ondansetron 4 mg tab(s) (ZOFRAN) 4 mg ORAL q 6 H PRN Or ondansetron (PF) 4 mg injection (ZOFRAN) 4 mg INTRAVENOUS q 6 H PRN docusate sodium 100 mg cap(s) (COLACE) 100 mg ORAL BID polyethylene glycol 3350 17 g packet 17 g ORAL DAILY PRN bisacodyl 10 mg suppository (DULCOLAX) 10 mg RECTAL DAILY PRN acetaminophen 325-650 mg tab(s) (TYLENOL) 325-650 mg ORAL q 4 H PRN dextrose 15 gram/32 mL 15 g (TRUEPLUS) 15 g ORAL PRN Or glucagon 1 mg injection 1 mg INTRAMUSCULAR PRN Or dextrose 10% iv bolus 12.5 g INTRAVENOUS PRN insulin lispro injection (rapid acting) (ADMElog) SUBCUTANEOUS w MEALS trospium 20 mg tab(s) (SANCTURA) 20 mg ORAL BID AC Labs: Recent Labs 07/13/22 1001 NA 135* K 4.1 CHLOR 97 CO2 28 BUN 15 CREAT 1.03 GLUC 177* ANION 10 CA 9.0 WBC 13.02* HB 12.6* HCT 39.7 PLT 202 Exam: GENERAL: No distress, Alert NEURO: Neuro : A+O x3, PERRL, makes eye contact, speech clear, cranial nerves 2-12 grossly intact , SHABAZZ, strength 4/5 BUE and BLE and equal, generally weak HEENT: normocephalic, atraumatic NECK/BACK:back with bandage and dry slight serous drainage. LUNGS: Unlabored breathing CARDIAC: Regular rate and rhythm as above ABDOMEN: Soft, non-tender, non-distended EXTREMITIES: SHABAZZ, No deformities, No edema SKIN: Skin color, texture, turgor normal, No rashes or lesions ASSESSMENT AND PLAN: There are no active hospital problems to display for this patient. 77 year old male POD #2 L3-4 decompression -Neuro as above -Imaging: NNI -Pain control: continue current regimen -sound signed off, patient stable from their standpoint. -Activity: Ensure progressive mobility, patient up to chair already this am -increased cyclobenzaprine to scheduled as this was beneficial for pain -Brace/Collar: No brace necessary -DVT PPX: SCDs -Dispo: Pending PT/OT recs Portions of text from this note were copied. All relevant information was reviewed and updated accordingly on 07/15/2022 SIGNATURE: Wily Castañeda APRN.BAG PRESSER PATIENT NAME: Essie Espino DATE: July 15, 2022 TIME: 12:47 PM Wily Castañeda APRN.BAG PRESSER Pager: [phone] Neurosurgery Pager: [phone] [facility] 07-14-2022 Note HNO ID: [id number] Author: Kelechi Carter MD Service: Hospital Medicine Author Type: Physician Type: Progress Notes Filed: 07/14/2022 9:15 AM Note Text: BP and glucose reviewed and are stable. Will formally sign off. [facility] 07-13-2022 Note HNO ID: [id number] Author: Amanda Hudson RN Service: Nursing Author Type: Registered Nurse Type: Nursing Progress Note Filed: 07/13/2022 6:32 PM Note Text: 1830 Lower back dressing changed at this time, new ABD applied. [facility] 07-13-2022 Note HNO ID: [id number] Author: Mekhi Carr PA-C Service: Neurosurgery Author Type: Physician Education Supervisor Type: Procedures Filed: 07/13/2022 4:34 PM Note Text: Procedure Note Patient was identified by name and bracelet. Patient was laid in the decubitus position. Area was prepped with alcohol pad and iodine swabs x3 The area surrounding the incision site was infiltrated with 1% lidocaine with epinephrine Running 3-0 ethilon suture placed in between previous ethilon suturing over incision site The patient was subsequently laid flat, having tolerated the procedure well. No drainage noted at inferior aspect of incision site as was prior. Incision site covered with ABD padding. Mekhi Carr PA-C Neurosurgery July 13, 2022 [facility] 07-13-2022 Note HNO ID: [id number] Author: Kelechi Carter MD Service: Hospital Medicine Author Type: Physician Type: Progress Notes Filed: 07/13/2022 7:58 AM Note Text: DEPARTMENT OF HOSPITAL MEDICINE PROGRESS NOTE SERVICE DATE: 07/13/2022 SERVICE TIME: 7:58 AM Hospital Medicine/Primary Attending: Kelechi Carter MD NIGHT AND WEEKEND COVERAGE: After 7pm please page [phone] SUBJECTIVE: Follow up for consult. No CP SOB NVD. OBJECTIVE: PHYSICAL EXAM: BP 117/85 Pulse 88 Temp (Src) 97.5 (Axillary) Resp 18 Ht 5' 6 (1.68m) Wt 238 lb 12.1 oz (108.3kg) SpO2 90% BMI 38.55 kg/(m2). O2 Therapy: Continuous Positive Airway Pressure, Liters: 3 General - AANDOx3, NAD, Calm Skin- No new lesions CV - RRR S1 S2, No M/R/G RESP - CTA B/L No wheezes, ronchi, rales ABD - soft, NT, ND +BS ENT- no icterus Neuro- No dysarthria MEDICATIONS: Current Facility-Administered Medications Medication Dose Route Frequency gabapentin 200 mg cap(s) (NEURONTIN) 200 mg ORAL TID gabapentin 800 mg cap(s) (NEURONTIN) 800 mg ORAL TID simvastatin 10 mg tab(s) (ZOCOR) 10 mg ORAL AT BEDTIME losartan 50 mg tab(s) (COZAAR) 50 mg ORAL DAILY pantoprazole DR 40 mg tab(s) (PROTONIX) 40 mg ORAL DAILY hydroCHLOROthiazide 12.5 mg tab(s) 12.5 mg ORAL DAILY NaCl 0.45% iv infusion 100 mL/hr INTRAVENOUS CONTINUOUS HYDROcodone 5 mg - acetaminophen 325 mg tablet (NORCO) 1-2 tablet ORAL q 4 H PRN morphine 4-6 mg injection 4-6 mg INTRAVENOUS q 2 H PRN cyclobenzaprine 10 mg tab(s) (FLEXERIL) 10 mg ORAL TID PRN ondansetron 4 mg tab(s) (ZOFRAN) 4 mg ORAL q 6 H PRN Or ondansetron (PF) 4 mg injection (ZOFRAN) 4 mg INTRAVENOUS q 6 H PRN docusate sodium 100 mg cap(s) (COLACE) 100 mg ORAL BID polyethylene glycol 3350 17 g packet 17 g ORAL DAILY PRN [START ON 07/14/2022] bisacodyl 10 mg suppository (DULCOLAX) 10 mg RECTAL DAILY PRN acetaminophen 325-650 mg tab(s) (TYLENOL) 325-650 mg ORAL q 4 H PRN dextrose 15 gram/32 mL 15 g (TRUEPLUS) 15 g ORAL PRN Or glucagon 1 mg injection 1 mg INTRAMUSCULAR PRN Or dextrose 10% iv bolus 12.5 g INTRAVENOUS PRN insulin lispro injection (rapid acting) (ADMElog) SUBCUTANEOUS w MEALS trospium 20 mg tab(s) (SANCTURA) 20 mg ORAL BID AC DATA: Diagnostic tests reviewed for today's visit: CBC: No results for input(s): WBC, RBC, HB, HCT, PLT, MCV, MCH, MPV, RDW in the last 24 hours. Coags: No results for input(s): PT, INR, APTT in the last 24 hours. BMP: No results for input(s): NA, K, CHLOR, CO2, BUN, CREAT, GLUC in the last 24 hours. CMP: No results for input(s): NA, K, CHLOR, CO2, BUN, CREAT, GLUC, TPROT, CA, MG, ALBUMIN, TBILI, ALKPHOS, ALT, AST, ANION in the last 24 hours. Cardiac Enzymes: No results for input(s): CK, MB, CKMB, TROPT in the last 24 hours. Liver Function, Amylase, Lipase: No results for input(s): TPROT, ALB, ALT, AST, ALKPHOS, TBILI, AMYLASE, LIPASE, LACTATE in the last 24 hours. MG/PHOS: No results for input(s): MG, P in the last 24 hours. Renal Panel: No results for input(s): ALBUMIN, CREAT, BUN, GLUC, CA, P, CHLOR, K, CO2, NA in the last 24 hours. Heme: No results for input(s): RETICP, ABSRETIC, LD, DOMINIK, FE, TIBC, TRANSFERSAT in the last 24 hours. Albumin/Creat Ratio (mg/g) Date Value 01/02/2022 <8 There are no hospital problems to display for this patient. Assessment/Plan #HTN -continue home HCTZ 12.5mg dialy, cozaar 50mg daily #FUAD- continue CPAP, machine is at bedside #DMII -continue SSIC, monitor accuchekcs closely, he is on regular diet, I will change diet to carb controlled -home metformin held perioperatively - Good control Medicine can sign off to follow peripherally. VTE Prophylaxis: As per primary team Disposition: To be determined Plan of care discussed with: Patient SIGNATURE: Kelechi Carter MD PATIENT NAME: Essie Espino DATE: July 13, 2022 TIME: 7:58 AM PAGER/CONTACT #: My Pager. Page [phone] after 7PM, as my pager is off. [facility] 07-13-2022 Note HNO ID: [id number] Author: Mekhi Carr PA-C Service: Neurosurgery Author Type: Physician Education Supervisor Type: Progress Notes Filed: 07/13/2022 10:04 AM Note Text: Neurosurgery Progress Note SERVICE DATE: 07/13/2022 SUBJECTIVE: NAEON. Reports to cramping in left foot and denies any changes in pre-operative symptoms. OBJECTIVE: Vitals: Temp (24hrs), Av.4 ?C (97.6 ?F), Min:36.2 ?C (97.2 ?F), Max:36.7 ?C (98.1 ?F) BP 117/85 Pulse 88 Temp 36.4 ?C (97.5 ?F) (Axillary) Resp 18 Ht 167.6 cm (5' 6 ) Wt 108.3 kg (238 lb 12.1 oz) SpO2 90% BMI 38.54 kg/m? O2 Therapy: Continuous Positive Airway Pressure Physical Exam: General - Alert and Oriented x3, cooperative, appropriate. Respiratory- even, unlabored GI - abdomen soft, non-tender, non-distended HEENT - Normocephalic. Atraumatic. Neck/Back - Dressing with dried blood. Incision site c/d/I. Dressing exchanged Neuro - GCS:Opens eyes spontaneously (4),Oriented (5),Obeys motor commands (6) =15 PERRLA, makes eye contact, TM, FS, EOMI Speech: appropriate Motor: SHABAZZ, BUE and BLE 5/5 Sensation: intact globaly Drift: NT Extremities- Grossly normal. Symmetrical. No edema, deformity, coloration changes. Pulses- 2+ DP, 2+ radial Labs: CBC, Coags, BMP, Mg, Phos Cardiac Enzymes ABGs Diagnostic tests reviewed for today's visit: Most recent labs and imaging results. ASSESSMENT AND PLAN: There are no active hospital problems to display for this patient. 77 year old male POD #1 L3-4 decompression -Neuro as above -Imaging: NNI -Pain control: continue current regimen -Med mgmt per sound, appreciate recs -Activity: Progressive mobilization with increasing HOB this am; discussed with nurse, patient and to alert primary service with positional headache -Brace/Collar: No brace necessary -DVT PPX: SCDs -Dispo: Pending PT/OT recs Medication and Non-Pharmacologic VTE Prophylaxis/Anticoagulants 07/12/22 1445 vte pharmacologic prophylaxis contraindicated (ma,oh) 07/12/22 1445 pneumatic compression stockings (ma,or) Parts of this note may have been copied from one of my previous notes and remain pertinent. The documentation has been reviewed and edited as necessary to support the clinical decision making for today's visit. SIGNATURE: Mekhi Carr PA-C PATIENT NAME: Essie Espino DATE: July 13, 2022 TIME: 7:45 AM Pager: [phone] [facility] 07-13-2022 Note HNO ID: [id number] Author: Sangita Hebert RN Service: Nursing Author Type: Registered Nurse Type: Progress Notes Filed: 07/13/2022 6:19 AM Note Text: Another RN was attempted to get patients bloodwork while tasking and was unsuccessful. Patient does not wish to have anymore attempts at this time and would like to wait and talk with doctors when they round to see if additional bloodwork is necessary. [facility] 07-12-2022 Note HNO ID: [id number] Author: Mica Funes RN Service: Care Management Author Type: Registered Nurse Type: Care Mgt Initial Assessment Filed: 07/12/2022 3:57 PM Note Text: CARE MANAGEMENT: ASSESSMENT AND DISCHARGE PLAN SERVICE DATE: July 12, 2022 SERVICE TIME: 3:55 PM PRIMARY CARE PHYSICIAN: Yosef Whitaker MD Primary Contact: Extended Emergency Contact Information Primary Emergency Contact: Stacey Espino Address: [address] [place] [address] Relation: Spouse ADMISSION STATUS: Ambulatory Surgery Insurance Provider: [employer] MEDICARE ADVANTAGE PPO NEEDS PRIOR TO DISCHARGE Needs Prior to Discharge: To Be Determined POTENTIAL TRANSITION PLANS To Be Determined Based on clinical judgement, Care Management will address the following needs: Medical Patient's perception of need for this admission: surgery ADVANCE DIRECTIVES Current Advance Directive: Health Care Power of Special Delivery Worker In Chart: Yes Up To Date and Valid: Yes MS/BEHAVIOR Baseline Mental Status Prior to this Illness what was the patient's Baseline Mental Status?: Alert AND Oriented Prior to this illness, has anyone described the patient having any of the following behaviors?: Not Applicable Relationship of the informant to the patient:: Self READMISSION Last Discharge Date: 05/16/20 Is this Within the Past 30 days? 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 scores in the EMR?: No Any potential risks related to substance abuse and/or behavioral health?: No Based on clinical judgement, Care Management will address the following needs: Medical CAREGIVER ASSESSMENT Caregiver is ready, willing and able to meet the patient's needs as recommended by the inter-professional team:: Yes Name of Caregiver: is available to assist as needed MEDICAL Medical Needs: Two or more chronic diseases;Obesity;Fall risk or frequent falls Medication Adherance I am convinced of the importance of my prescription medication: 0 - Agree Completely I worry that my prescription medication will do more harm than good to me : 0 - Disagree Completely I feel financially burdened by my [id number] expenses for my prescription medication:: 0 - Disagree Completely Risk Score: 0 Patient is categorized as: Low risk < 2 No social discharge barriers identified at this time. No behavioral/cognitive discharge barriers identified at this time. No functional discharge barriers identified at this time. FREEDOM OF CHOICE EXPLAINED: [place] of Choice Given: No Reason Not Given: No placements necessary Are you interested in bedside delivery of your medications? No ASSESSMENT AND PLAN: Per chart review, patient is a 76 yr old male s/p L3-4 Laminectomy Met with patient and at bedside; introduced self and CM role. Prior to admission, patient was independent with ADLs. The patient declined using any assistive equipment, except he occasionally used a rollator. He lives with his who is able to provide assistance as needed. Awaiting PT/OT recommendations for post-acute needs. CM will continue to follow and place referrals as appropriate. The patient will be transported home at d/c by via private auto. SIGNATURE: Mica Funes RN PATIENT NAME: Essie Espino DATE: July 12, 2022 TIME: 3:55 PM CONTACT #: [phone] [facility] 07-12-2022 Note HNO ID: [id number] Author: Mauro Garrett APRN.OPTICIAN MANAGER Service: Anesthesiology Author Type: Nurse Order Dispatcher Chief Type: Anesthesia Procedure Notes Filed: 07/12/2022 8:38 AM Note Text: ANESTHESIOLOGY PROCEDURE NOTE Airway General Information Procedure Start Time/Medication Administration: 07/12/2022 8:20 AM Patient location during procedure: OR Consent Obtained: Yes Patient identity confirmed: arm band and patient Staffing SRNA: XOCHITL Stovall Performed by: XOCHITL Indications and Patient Condition Indications for airway management: anesthesia Preoxygenated: yes anesthesia circuit Method: asleep Cricoid Pressure: No Manual In-Line Stabilization: No Difficult Mask: No Airway Accessory: oral airway Final Airway Details Final airway type: endotracheal airway Final Endotracheal Airway: ETT Cuffed: yes Successful intubation technique: video laryngoscopy Devices used: Mcbride Endotracheal tube insertion site: oral Blade: Sandi Blade size: #4 ETT size (mm): 7.5 Measured from: gums Measurement (cm): 23 Placement verified by: chest auscultation Cormack-Lehane Classification: grade IIa - partial view of glottis Number of attempts at approach: 1 Failed airway: no Unrecognized esophageal intubation: no Airway not difficult SIGNATURE: Mauro Garrett APRN.CRNA PATIENT NAME: Essie Espino DATE: July 12, 2022 TIME: 8:35 AM CSN: [id number] [facility] 07-04-2022 Note [facility] 07-04-2022 History of Present illness Narrative Chief Complaint Patient presents with: Pre-Op Exam HPI Essie Espino is a 76 year old male who presents here today for pre op. Patient is scheduled to have lumbar surgery per Dr. Simpson at [facility] on 07/12/2022 Patient with Hx of DM2, CAD, CKD stage 3 as well as those as below. Patient recently saw cardio and had stress test that was normal and was cleared yesterday from a cardiac stand point. Past medical history, appointments, medications, allergies reviewed. Previous Medical History PAST MEDICAL HISTORY Diagnosis Date Advance directive discussed with patient 01/01/2022 Discussed 12/2021 Arthritis B12 deficiency 04/06/2015 Bilateral leg edema 06/28/2021 Coronary artery disease Diabetic eye exam (HCC) 11/01/2013 Last done:05/20/2018 Diverticulosis of large intestine without hemorrhage Elevated LFTs 12/11/2016 Elevated PSA 12/30/2018 Esophageal stenosis 08/20/2016 Essential hypertension, benign 01/25/2005 Ex-smoker 08/08/2016 US: 08/15/2016 no AAA Fatty liver 09/28/2008 CT showed diffuse fatty infiltration (incidental on CT chest) Mildly elevated LFT's since 01/26 GERD without esophagitis 06/27/2020 Internal hemorrhoids without mention of complication Leg pain, bilateral 12/28/2020 Living will on file 01/01/2022 DPA: Stacey () Medicare annual wellness visit, subsequent 12/18/2017 Medicare Part B: 06/20/2010 last done: 12/30/2018 Mixed hyperlipidemia 11/01/2013 Morbid obesity due to excess calories (HCC) 04/06/2015 Neuropathy 10/31/2013 Had low back surgery 2010 for disc herniation and has had numbness in his toes since then. Obesity, Class II, BMI 35-39.9 04/06/2015 Obstructive sleep apnea syndrome 04/06/2015 CPAP with good success Pain of both hip joints 02/06/2019 PMH - PAST MEDICAL HISTORY OF 02/2008 release nerves in back Seborrheic keratoses, inflamed 08/10/2015 Left temporal and right check Spinal stenosis of lumbar region Spinal stenosis of lumbar region Stage 3a chronic kidney disease ([facility]) 02/01/2022 Type 2 diabetes mellitus with diabetic polyneuropathy, without long-term current use of insulin ([facility]) 12/12/2015 Urge incontinence 08/10/2015 VENTRICULAR TACHYCARDIA, PAROXYSMAL 07/04/2005 Previous Surgical History PAST SURGICAL HISTORY Procedure Laterality Date APPENDECTOMY BACK SURGERY HX 2007 CHOLECYSTECTOMY Cholecystectomy COLONOSCOPY FLX DX W/COLLJ SPEC WHEN PFRMD 11/07/2005 Colonoscopy recheck 10 yrs COLONOSCOPY FLX DX W/COLLJ SPEC WHEN PFRMD 07/29/2017 Colonoscopy EGD 05/16/2020 ESOPHAGOGASTRODUODENOSCOPY TRANSORAL DIAGNOSTIC 03/23/2013 EGD EYE SURGERY HX FECAL OCCULT BLOOD TEST 12/14/2016 negative PAST SURGICAL HISTORY OF 03/2008 lumbar decompression, [facility] PAST SURGICAL HISTORY OF 09/2014 left cataract PAST SURGICAL HISTORY OF 2007 right cataract PAST SURGICAL HISTORY OF Left 09/02/2018 partial medial and lateral menisectomy, loose body removal. TONSILLECTOMY HX Family History FAMILY HISTORY Problem Relation Age of Onset Coronary Artery Disease Father age 68; heavy EtOH use Alcohol/Drug Father alcoholism Diabetes Paternal Grandmother Prostate Cancer Other none Colon Cancer Other none known Dementia Paternal Uncle identicle twin to pt's father Patient Allergies ALLERGIES Allergen Reactions Chlorhexidine Gluco* Shortness of Breath Lisinopril Cough Penicillins Intolerance thinks he has had PCN without complication Current Medications Current Outpatient Medications on File Prior to Visit Medication Sig oxybutynin ER (DITROPAN XL) 10 mg 24 hr tablet Take 1 tablet by mouth once daily. For overactive bladder losartan (COZAAR) 50 mg tablet Take 1 tablet by mouth once daily. CPAP/BIPAP/OTHER New set up: Settings 7 - 20 cm H2O, suitable mask per pt preference (nasal mask), chin strap, head gear, humidity, tubing, lifetime supplies. G47.33 FUAD gabapentin (NEURONTIN) 100 mg capsule Take 2 capsules by mouth three times daily for 90 days. Along with your 800 mg three times a day for a total of 1000 mg three times a day. omeprazole (PRILOSEC) 40 mg capsule Take 1 capsule by mouth once daily. metFORMIN (GLUCOPHAGE) 1,000 mg tablet Take 1 tablet by mouth twice daily with meals. hydroCHLOROthiazide (HYDRODIURIL, ESIDRIX) 12.5 mg tablet Take 1 tablet by mouth once daily. gabapentin (NEURONTIN) 400 mg capsule Take 2 capsules by mouth three times daily for 180 days. diclofenac, EC, (VOLTAREN) 75 mg EC tablet Take 1 tablet by mouth twice daily. For pain/inflammation. Take with food. simvastatin (ZOCOR) 10 mg tablet Take 1 tablet by mouth daily at bedtime. cyanocobalamin (VITAMIN B-12) 1,000 mcg tab Take 1 tablet by mouth once daily. CPAP Use 10 cm in the nose daily at bedtime. ASPIRIN 81 MG TAB Take 81 mg by mouth once daily. No current facility-administered medications on file prior to visit. Social History Social History Tobacco Use Smoking status: Former Packs/day: 1.00 Years: 20.00 Pack years: 20.00 Types: Cigarettes Quit date: 04/22/1989 Years since quittin.2 Smokeless tobacco: Never Vaping Use Vaping Use: Never used Substance Use Topics Alcohol use: Yes Comment: OCCASIONAL Drug use: No Review of Symptoms REVIEW OF SYSTEMS GENERAL: No weight loss, malaise or fevers HEENT: Negative for frequent or significant headaches, No changes in hearing or vision, no nose bleeds or other nasal problems NECK: Negative for lumps, goiter, pain and significant neck swelling RESPIRATORY: Negative for cough, hemoptysis, wheezing, COPD, dyspnea or shortness of breath CARDIOVASCULAR: Negative for chest pain, increased leg swelling, hypertension, CHF or palpitations GI: No nausea, vomiting, or diarrhea and no pains : No history of dysuria, blood MUSCULOSKELETAL: see HPI SKIN: Negative for lesions, rash, and itching HEMATOLOGY/LYMPHOLOGY: Negative for prolonged bleeding, bruising easily or swollen nodes ENDOCRINE: Negative for symptoms of low BS's NEURO: No history of headaches, syncope, paralysis, seizures or tremors EXAM: BP 132/76 (BP Site: Right Arm, BP Position: Sitting, BP Cuff Size: Large Adult) Pulse 70 Resp 16 Wt 106.6 kg (235 lb) BMI 38.51 kg/m Last 5 Encounter Wt Readings: Date: Wt: 07/04/2022 106.6 kg (235 lb) 06/29/2022 106.1 kg (234 lb) 06/28/2022 105.2 kg (232 lb) 06/11/2022 104.3 kg (230 lb) 03/28/2022 108 kg (238 lb) General Appearance: Well appearing, alert, in no acute distress, well-hydrated, well nourished. and Obese. Skin: Skin color, texture, turgor normal, no suspicious rashes or lesions on the lower back Head: Normocephalic, no masses, lesions, tenderness or abnormalities. Eyes: Anicteric sclera. Pupils are equally round and reactive to light. Extraocular movements are intact. . Ears: External ears, TM's normal, canals clear. Neck: Supple, no adenopathy; thyroid symmetric, normal size, no bruits. Lungs: Lungs clear to auscultation. No wheezing, rhonchi, rales.. Heart: RRR without murmur, gallop, or rubs. No ectopy. Abdomen: Normal abdominal exam, Abdomen soft, non-tender. Bowel sounds normal. No masses, organomegaly. Extremities: No deformities, edema, skin discoloration, Good capillary refill. . Musculoskeletal:Muscular strength intact but weaker in th lower extremities Rt>Lt, No joint swelling, deformity, or tenderness. Peripheral Pulses: Normal. Neurologic: Gait normal. Reflexes normal and symmetric. Sensation to light touch symmetrical and intact.. Health Maintenance List BP CONTROLLED (<130/80) Never done DTAP,TDAP,TD(3 - Td or Tdap) due on 04/06/2015 ADVANCE DIRECTIVE DISCUSSION due on 04/22/2022 DEPRESSION ASSESSMENT Never done DILATED RETINAL EXAM due on 06/02/2022 HBA1C due on 12/29/2022 LDL CHOLESTEROL due on 01/01/2023 DIABETIC FOOT EXAM due on 01/01/2023 ANNUAL PCP TEAM CHRONIC DISEASE VISIT due on 01/01/2023 URINE ALBUMIN:CREATININE RATIO due on 01/02/2023 SERUM CREATININE due on 06/29/2023 INFLUENZA Completed HEPATITIS C SCREENING Completed SHINGRIX VACCINE Completed COVID-19 VACCINE Completed PNEUMOCOCCAL: 65+ Completed Data reviewed Component Latest Ref Rng & Units 01/01/2022 06/28/2022 WBC 3.70 - 11.00 k/uL 9.44 9.22 RBC 4.20 - 6.00 m/uL 4.25 4.30 Hemoglobin 13.0 - 17.0 g/dL 12.7 (L) 12.7 (L) Hematocrit 39.0 - 51.0 % 40.7 40.7 MCV 80.0 - 100.0 fL 95.8 94.7 MCH 26.0 - 34.0 pg 29.9 29.5 MCHC 30.5 - 36.0 g/dL 31.2 31.2 RDW-CV 11.5 - 15.0 % 14.2 14.3 Platelet Count 150 - 400 k/uL 261 233 MPV 9.0 - 12.7 fL 10.6 10.7 Neut% % 56.8 Abs Neut (ANC) 1.45 - 7.50 k/uL 5.36 Lymph% % 25.6 Abs Lymph 1.00 - 4.00 k/uL 2.42 [place]% % 8.8 Abs [place] <0.87 k/uL 0.83 Eosin% % 7.5 Abs Eosin <0.46 k/uL 0.71 (H) Baso% % 1.0 Abs Baso <0.11 k/uL 0.09 Immature Gran % % 0.3 IMMATURE GRANS (ABS) <0.10 k/uL 0.03 NRBC /100 WBC 0.0 Absolute nRBC <0.01 k/uL <0.01 <0.01 DTYPE Auto Protein, Total 6.3 - 8.0 g/dL 6.9 7.0 Albumin 3.9 - 4.9 g/dL 4.6 4.5 Calcium 8.5 - 10.2 mg/dL 9.9 9.9 Bilirubin, Total 0.2 - 1.3 mg/dL 0.2 0.2 Alkaline Phosphatase 38 - 113 U/L 48 55 AST 14 - 40 U/L 32 52 (H) ALT 10 - 54 U/L 53 69 (H) Glucose 74 - 99 mg/dL 91 105 (H) BUN 9 - 24 mg/dL 31 (H) 36 (H) Creatinine 0.73 - 1.22 mg/dL 1.42 (H) 1.24 (H) Sodium 136 - 144 mmol/L 140 138 Potassium 3.7 - 5.1 mmol/L 4.8 4.9 Chloride 97 - 105 mmol/L 99 99 CO2 22 - 30 mmol/L 24 26 Anion Gap 9 - 18 mmol/L 17 13 eGFR >=60 mL/min/1.73m 51 (L) 60 Hemoglobin A1C 4.3 - 5.6 % 6.3 (H) 6.3 (H) Estimated Average Glucose mg/dL 134 134 PT Sec 9.7 - 13.0 sec 10.2 PT INR 0.9 - 1.3 0.9 APTT 23.0 - 32.4 sec 24.5 EK06/28/2022 showed NSR with 1st degree AV block. No acute changes. Nuclear Stress test Results-Findings * * *Final Report* * * DATE OF EXAM: Jul 02 2022 10:23AM EDGAR 0006 - NM CARDIAC PERF STRESS/PHARM / PROCEDURE REASON: Z01.818-Encounter for other preprocedural examination * * * * Physician Interpretation * * * * NM CTAC Report: [facility] Date of service: 07/02/2022 8:07:41 AM CTAC interpreting physician: Ayad Vo MD PATIENT: Name: MR. ESSIE ESPINO Age: 76 years Gender: M 1. Incidental Findings from limited non-diagnostic CTAC: - Coronary calcifications visualized. Final PATIENT: Name: MR. ESSIE ESPINO Age: 76 years Gender: M CONCLUSIONS: 1. SPECT Perfusion Study: Normal. 2. There is no scintigraphic evidence for inducible ischemia. 3. No evidence of scarred myocardium. 4. Given normal wall motion, fixed perfusion defect with minimal reversibility in the RCA territory is most likely due to prominent GI attenuation artifact. 5. Left ventricle is normal in size. The left ventricle systolic function is normal. 6. Right ventricle is normal in size. The right ventricle systolic function is normal. 7. This is a low risk scan. Gated Stress IR:3D LVEF % 73 Prior Study Comparison No prior nuclear cardiology exam available for comparison. Nuclear Med Report:1-Day Gated SPECT Myocardial Perfusion with Regadenoson Stress: Myocardial perfusion imaging was performed at rest 30 minutes following the IV injection of the radiotracer. The patient received 0.4 mg of regadenoson, via rapid IV push, immediately followed by radiotracer IV. Gated post stress tomographic imaging was performed 30 to 60 minutes later. See administered radiotracer and doses below. [facility] Date of service: 07/02/2022 8:07:41 AM Ordering Physician: KIM ALONZO. Requesting Physician: Indication: Dyspnea and Encounter for other preprocedural examination Interpreting physician: Yan Osuna MD Height: 166.37 cm BSA: 2.21 m Weight: 106.14 kg BMI: 38.3 kg/m CT Dose-Length Product(DLP): 70.9 mGy*cm. CT Dose Reduction Employed: Yes. Exam Type: Rest Stress Radiopharm: Tc-99m Tetrofosmin Tc-99m Tetrofosmin Dosage(mCi): 15.7 46.6 Atten Correction: performed performed Stress Agent: Regadenoson 0.4mg Supply provided from [facility] Resting Blood Press: 154/82 mmHg Image Quality The overall study imaging quality was deemed to be fair. FINDINGS: Left Ventricle Wall Motion: 1 - All segments are normal. Stress IR:3D - Rest IR:3D - Gated Stress IR:3D - Reversibility - 1 Stress IR:3D Gated Stress IR:3D LVEF: 73 % ED Volume: 95 ml ES Volume: 26 ml TID: 1.17 Perfusion Findings Stress IR:3D - Summed Score=4 There is a moderate perfusion defect in the apical inferior segment. There is a mild perfusion defect in the inferior wall. All remaining scored segments show normal perfusion. Rest IR:3D - Summed Score=3 There is a mild perfusion defect in the entire inferior wall. All remaining scored segments show normal perfusion. Stress IR:3D Rest IR:3D Summed Score=4 Summed Score=3 LEFT VENTRICLE The left ventricle is normal in size. Left ventricular systolic function is normal. Right Ventricle The right ventricle is normal in size. Right ventricle systolic function is normal. Stress Test Findings: There is no scintigraphic evidence for inducible ischemia. There is no evidence of scarring. Final Stress ECG Report: [facility] Date of service: 07/02/2022 8:07:41 AM Ordering physician: KIM ALONZO security systems specialist: Cathryn Diallo Education Supervisor: Chen Antonio Interpreting physician: Polo Avery DO Patient name: MR. ESSIE ESPINO Age: 76 years Gender: M Height: 166.37 cm BSA: 2.21 m Weight: 106.14 kg BMI: 38.3 kg/m Indication: Encounter for pre-procedural cardiovascular examination for non-cardiac surgery Stress ECG Conclusion: Conclusion: Normal Stress ECG Summary: The patient's resting heart rate was 71 bpm and blood pressure was 154/82 mmHg. The test was terminated due to end of protocol. Other symptoms during the test included SOB. The maximum heart rate was 93 bpm, which is 65% of the predicted heart rate for age. Peak blood pressure was 156/75 mmHg. The double product achieved was [address]. Medications: Last Used DITROPAN COZAAR NEURONTIN PRILOSEC GLUCOPHAGE HYDROCHLOROTHIAZIDE ASPIRIN ZOCOR Resting ECG: Normal Sinus Rhythm Symptoms at rest: No symptoms Pharamcologic Protocol: Regadenoson Stress Exercise Table: +-----+--+---+---+ Stage HR SYS CORETTA +-----+--+---+---+ 1 80 +-----+--+---+---+ 2 93 142 77 +-----+--+---+---+ 3 88 141 80 +-----+--+---+---+ 4 85 149 75 +-----+--+---+---+ 5 83 142 73 +-----+--+---+---+ 6 82 156 75 +-----+--+---+---+ +-----+--+---+---+ HR SYS CORETTA +-----+--+---+---+ Final 93 156 75 +-----+--+---+---+ Stress Observations: Resting HR: 71 bpm Peak HR: 93 bpm (65% MPHR) Resting BP: 154 / 82 mmHg Peak BP: 156 / 75 mmHg Rate Pressure Product (RPP): 04562 Stress Exercise Observations: Reason for test termination: end of protocol, Symptoms during test: Other symptoms during the test included SOB, ST segment and T wave changes: No ST changes and Arrhythmias: Multifocal PVCs Final Stress Lubricating Machine Tender Report: [facility] Date of service: 07/02/2022 8:07:41 AM Supervising physician: Polo Avery DO PATIENT: Name: MR. ESSIE ESPINO Age: 76 years Gender: M The supervising physician was in the department and immediately available. Final RP Tire Builder: RADHA Transcribe Date/Time: Jul 02 2022 8:07A Dictated by : YAN OSUNA MD This examination was interpreted and the report reviewed and electronically signed by: YAN OSUNA MD on Jul 03 2022 1:20PM EST Result History NM CARDIAC PERF STRESS/PHARM (Order #[id number]) on 07/03/2022 - Order Result History Report - Result Edited A/P ASSESSMENT/PLAN: 1. Pre-operative clearance - ICD9: V72.84, ICD10: Z01.818 (primary diagnosis) - patient has been cleared by cardio already to proceed with surgery and from a general medical stand point he is also clear to proceed with low back surgery 2. Spinal stenosis of lumbar region, unspecified whether neurogenic claudication present - ICD9: 724.02, ICD10: M48.061 - scheduled to have lumbar surgery per Dr. Simpson at [facility] on 07/12/2022 3. Type 2 diabetes mellitus with diabetic polyneuropathy, without long-term current use of insulin (HCC) - ICD9: 250.60, 357.2, ICD10: E11.42 - cont current Tx. 4. Essential hypertension, benign - ICD9: 401.1, ICD10: I10 - good control - Continue current medication(s) - Recommended regular aerobic exercise. - Recommend home blood pressure monitoring, to bring results in on next visit - Goal of BP <130/80 5. Stage 3a chronic kidney disease (HCC) - ICD9: 585.3, ICD10: N18.31 - cont current Tx. Yosef Whitaker MD documented in this encounter [facility] 07-03-2022 Miscellaneous Notes Spoke with Not[employer] of test results and Dr alonzo's message. She voices understanding and is agreeable to notify pt. Veronique Rice RN ----- Message from Kim Alonzo MD sent at 07/03/2022 8:47 AM EDT ----- Can you please let Mr. Espino know that his nuclear stress test was unremarkable, without evidence of myocardial ischemia or scar. As such, he will be at overall low risk of cardiac complications from an anticipated moderate risk surgical procedure. I will send a letter to his surgeon in this regards. Thanks, Kim Alonzo MD documented in this encounter [facility] 07-02-2022 Note [facility] 07-02-2022 History of Present illness Narrative CMN RECEIVED BY [employer] VIA FAX, COMPLETED, AND PLACED IN PROVIDER MAILBOX FOR SIGNATURE Wesley Garcia, Administration Assistance 07/02/22 [facility] SENDING CMN: Christiano SIGNED AND DATED CMN, FAXED TO DME & CONFIRMATION PAGE RECEIVED: 07/10/22 documented in this encounter [facility] 07-02-2022 Note HNO ID: [id number] Author: JOSE MANUEL Huynh Service: Radiology Author Type: Technologist Type: Progress Notes Filed: 07/02/2022 9:37 AM Note Text: RADIOLOGY SERVICE PROGRESS NOTE SERVICE DATE: 07/02/2022 SERVICE TIME: 9:36 AM PATIENT IDENTITY VERIFICATION COMPLETED USING TWO (2) STANDARD IDENTIFIERS: Name and Date of confirmed by patient verbally and Name and Date of confirmed by identification band FALL SCREENING: Has the patient had 2 falls in the last year or 1 fall with injury or currently using an Ambulatory Assistive Device (Walker, Cane, Wheelchair, Crutches, etc.)? No PATIENT GENDER DATA: .male ALLERGIES: Reviewed and unchanged MEDICATIONS REVIEWED: Not applicable PATIENT RELEVANT IMPLANT DATA REVIEWED: Not Applicable CREATININE: Creatinine Date Value Ref Range Status 06/28/2022 1.24 (H) 0.73 - 1.22 mg/dL Final 01/31/2022 1.27 (H) 0.73 - 1.22 mg/dL Final 01/01/2022 1.42 (H) 0.73 - 1.22 mg/dL Final Estimated Glomerular Filtration Rate Date Value Ref Range Status 06/28/2022 60 >=60 mL/min/1.73m? Final Comment: Estimated Glomerular Filtration Rate (eGFR) is calculated using the 2020 CKD-EPI creatinine equation. This equation utilizes serum creatinine, sex, and age as parameters. The creatinine assay has traceable calibration to isotope dilution-mass spectrometry. Refer to KDIGO guidelines for clinical interpretation. In patients with unstable renal function, e.g. those with acute kidney injury, the eGFR may not accurately reflect actual GFR. eGFR- Date Value Ref Range Status 12/21/2020 >60 Final P.O.C.T. RESULTS: N/A July 02, [address] PERFORMED: No IV SITE: Ambulatory: A peripheral IV was started in the Right hand with a Angio cath: 22 gauge. POST EXAM PIV STATUS: Discontinued PROCEDURE TYPE: NM Stress: 15.7 mCi [id number] was administered IV for Rest Imaging at 7:35 by mm. 46.6 mCi [id number] was administered IV for Stress Imaging at 8:50 by mm. PATIENT DISCHARGED TO: Ambulatory patient, left [place] department area. A Diagnostic radioactive procedure has taken place, with no further precautions necessary other than routine body substance precautions. More information regarding radiation safety can be found using this link: [email or web address] [email or web address] SIGNATURE: JOSE MANUEL Huynh PATIENT NAME: Essie Espino DATE: July 02, 2022 TIME: 9:36 AM PAGER/CONTACT #: [facility] 07-02-2022 History of Present illness Narrative RADIOLOGY SERVICE PROGRESS NOTE SERVICE DATE: 07/02/2022 SERVICE TIME: 9:36 AM PATIENT IDENTITY VERIFICATION COMPLETED USING TWO (2) STANDARD IDENTIFIERS: Name and Date of confirmed by patient verbally and Name and Date of confirmed by identification band FALL SCREENING: Has the patient had 2 falls in the last year or 1 fall with injury or currently using an Ambulatory Assistive Device (Walker, Cane, Wheelchair, Crutches, etc.)? No PATIENT GENDER DATA: .male ALLERGIES: Reviewed and unchanged MEDICATIONS REVIEWED: Not applicable PATIENT RELEVANT IMPLANT DATA REVIEWED: Not Applicable CREATININE: Creatinine Date Value Ref Range Status 06/28/2022 1.24 (H) 0.73 - 1.22 mg/dL Final 01/31/2022 1.27 (H) 0.73 - 1.22 mg/dL Final 01/01/2022 1.42 (H) 0.73 - 1.22 mg/dL Final Estimated Glomerular Filtration Rate Date Value Ref Range Status 06/28/2022 60 >=60 mL/min/1.73m Final Comment: Estimated Glomerular Filtration Rate (eGFR) is calculated using the 2020 CKD-EPI creatinine equation. This equation utilizes serum creatinine, sex, and age as parameters. The creatinine assay has traceable calibration to isotope dilution-mass spectrometry. Refer to KDIGO guidelines for clinical interpretation. In patients with unstable renal function, e.g. those with acute kidney injury, the eGFR may not accurately reflect actual GFR. eGFR- Date Value Ref Range Status 12/21/2020 >60 Final P.O.C.T. RESULTS: N/A July 02, [address] PERFORMED: No IV SITE: Ambulatory: A peripheral IV was started in the Right hand with a Angio cath: 22 gauge. POST EXAM PIV STATUS: Discontinued PROCEDURE TYPE: NM Stress: 15.7 mCi [id number] was administered IV for Rest Imaging at 7:35 by mm. 46.6 mCi [id number]-Kgzhxes was administered IV for Stress Imaging at 8:50 by mm. PATIENT DISCHARGED TO: Ambulatory patient, left [place] department area. A Diagnostic radioactive procedure has taken place, with no further precautions necessary other than routine body substance precautions. More information regarding radiation safety can be found using this link: [email or web address] [email or web address] SIGNATURE: JOSE MANUEL Huynh PATIENT NAME: Essie Espino DATE: July 02, 2022 TIME: 9:36 AM PAGER/CONTACT #: documented in this encounter [facility] 06-29-2022 Note HNO ID: [id number] Author: Kim Alonzo MD Service: ? Author Type: Physician Type: Progress Notes Filed: 06/29/2022 2:24 PM Note Text: PRIMARY CARE PHYSICIAN: Yosef Whitaker [address] [place] [address] REFERRING PHYSICIAN: Yosef Whitaker [address] [place] [address] CHIEF COMPLAINT: Preoperative cardiac risk assessment prior to laminectomy for spinal stenosis HISTORY OF PRESENT ILLNESS: Mr. Espino is a 76 year old male with a history of hypertension, hyperlipidemia, gastroesophageal reflux disease, diabetes, obstructive sleep apnea on CPAP therapy and chronic kidney disease who was referred to cardiology clinic for preoperative cardiac risk assessment prior to laminectomy for spinal stenosis. In discussion with the patient in the office today, he denies any significant cardiac complaints. He denies any complaints of chest pain, orthopnea, paroxysmal nocturnal dyspnea, presyncope, syncope, or palpitations. He does lead a largely sedentary lifestyle. He reports his most significant activity in the last several months is walking to and from the car. He is otherwise limited in his ability to stand or walk due to his spinal stenosis and lower extremity neuropathy. He does report getting short of breath climbing a flight of stairs. His cardiac risk factors otherwise include hypertension, hyperlipidemia, diabetes and remote history of tobacco use (patient reports smoking a pack a day for 20 years but quit in 1989). He also does have family history of coronary disease with his father dying of a heart attack at the age of 68. PAST MEDICAL HISTORY Diagnosis Date Advance directive discussed with patient 01/01/2022 Discussed 12/2021 Arthritis B12 deficiency 04/06/2015 Bilateral leg edema 06/28/2021 Coronary artery disease Diabetic eye exam (HCC) 11/01/2013 Last done:05/20/2018 Diverticulosis of large intestine without hemorrhage Elevated LFTs 12/11/2016 Elevated PSA 12/30/2018 Esophageal stenosis 08/20/2016 Essential hypertension, benign 01/25/2005 Ex-smoker 08/08/2016 US: 08/15/2016 no AAA Fatty liver 09/28/2008 CT showed diffuse fatty infiltration (incidental on CT chest) Mildly elevated LFT's since 01/26 GERD without esophagitis 06/27/2020 Internal hemorrhoids without mention of complication Leg pain, bilateral 12/28/2020 Living will on file 01/01/2022 DPA: Stacey () Medicare annual wellness visit, subsequent 12/18/2017 Medicare Part B: 06/20/2010 last done: 12/30/2018 Mixed hyperlipidemia 11/01/2013 Morbid obesity due to excess calories (HCC) 04/06/2015 Neuropathy 10/31/2013 Had low back surgery 2010 for disc herniation and has had numbness in his toes since then. Obesity, Class II, BMI 35-39.9 04/06/2015 Obstructive sleep apnea syndrome 04/06/2015 CPAP with good success Pain of both hip joints 02/06/2019 PMH - PAST MEDICAL HISTORY OF 02/2008 release nerves in back Seborrheic keratoses, inflamed 08/10/2015 Left temporal and right check Spinal stenosis of lumbar region Spinal stenosis of lumbar region Stage 3a chronic kidney disease (HCC) 02/01/2022 Type 2 diabetes mellitus with diabetic polyneuropathy, without long-term current use of insulin (HCC) 12/12/2015 Urge incontinence 08/10/2015 VENTRICULAR TACHYCARDIA, PAROXYSMAL 07/04/2005 PAST SURGICAL HISTORY Procedure Laterality Date APPENDECTOMY BACK SURGERY HX 2007 CHOLECYSTECTOMY Cholecystectomy COLONOSCOPY FLX DX W/COLLJ SPEC WHEN PFRMD 11/07/2005 Colonoscopy recheck 10 yrs COLONOSCOPY FLX DX W/COLLJ SPEC WHEN PFRMD 07/29/2017 Colonoscopy EGD 05/16/2020 ESOPHAGOGASTRODUODENOSCOPY TRANSORAL DIAGNOSTIC 03/23/2013 EGD EYE SURGERY HX FECAL OCCULT BLOOD TEST 12/14/2016 negative PAST SURGICAL HISTORY OF 03/2008 lumbar decompression, [facility] PAST SURGICAL HISTORY OF 09/2014 left cataract PAST SURGICAL HISTORY OF 2007 right cataract PAST SURGICAL HISTORY OF Left 09/02/2018 partial medial and lateral menisectomy, loose body removal. TONSILLECTOMY HX MEDICATIONS: oxybutynin ER (DITROPAN XL) 10 mg 24 hr tablet Take 1 tablet by mouth once daily. For overactive bladder losartan (COZAAR) 50 mg tablet Take 1 tablet by mouth once daily. CPAP/BIPAP/OTHER New set up: Settings 7 - 20 cm H2O, suitable mask per pt preference (nasal mask), chin strap, head gear, humidity, tubing, lifetime supplies. G47.33 FUAD gabapentin (NEURONTIN) 100 mg capsule Take 2 capsules by mouth three times daily for 90 days. Along with your 800 mg three times a day for a total of 1000 mg three times a day. omeprazole (PRILOSEC) 40 mg capsule Take 1 capsule by mouth once daily. metFORMIN (GLUCOPHAGE) 1,000 mg tablet Take 1 tablet by mouth twice daily with meals. hydroCHLOROthiazide (HYDRODIURIL, ESIDRIX) 12.5 mg tablet Take 1 tablet by mouth once daily. gabapent (more content not included)... [facility] 06-29-2022 History of Present illness Narrative PRIMARY CARE PHYSICIAN: [place] [address] REFERRING PHYSICIAN: [place] [address] CHIEF COMPLAINT: Preoperative cardiac risk assessment prior to laminectomy for spinal stenosis HISTORY OF PRESENT ILLNESS: Mr. Espino is a 76 year old male with a history of hypertension, hyperlipidemia, gastroesophageal reflux disease, diabetes, obstructive sleep apnea on CPAP therapy and chronic kidney disease who was referred to cardiology clinic for preoperative cardiac risk assessment prior to laminectomy for spinal stenosis. In discussion with the patient in the office today, he denies any significant cardiac complaints. He denies any complaints of chest pain, orthopnea, paroxysmal nocturnal dyspnea, presyncope, syncope, or palpitations. He does lead a largely sedentary lifestyle. He reports his most significant activity in the last several months is walking to and from the car. He is otherwise limited in his ability to stand or walk due to his spinal stenosis and lower extremity neuropathy. He does report getting short of breath climbing a flight of stairs. His cardiac risk factors otherwise include hypertension, hyperlipidemia, diabetes and remote history of tobacco use (patient reports smoking a pack a day for 20 years but quit in 1989). He also does have family history of coronary disease with his father dying of a heart attack at the age of 68. PAST MEDICAL HISTORY Diagnosis Date Advance directive discussed with patient 01/01/2022 Discussed 12/2021 Arthritis B12 deficiency 04/06/2015 Bilateral leg edema 06/28/2021 Coronary artery disease Diabetic eye exam (HCC) 11/01/2013 Last done:05/20/2018 Diverticulosis of large intestine without hemorrhage Elevated LFTs 12/11/2016 Elevated PSA 12/30/2018 Esophageal stenosis 08/20/2016 Essential hypertension, benign 01/25/2005 Ex-smoker 08/08/2016 US: 08/15/2016 no AAA Fatty liver 09/28/2008 CT showed diffuse fatty infiltration (incidental on CT chest) Mildly elevated LFT's since 01/26 GERD without esophagitis 06/27/2020 Internal hemorrhoids without mention of complication Leg pain, bilateral 12/28/2020 Living will on file 01/01/2022 DPA: Stacey () Medicare annual wellness visit, subsequent 12/18/2017 Medicare Part B: 06/20/2010 last done: 12/30/2018 Mixed hyperlipidemia 11/01/2013 Morbid obesity due to excess calories (HCC) 04/06/2015 Neuropathy 10/31/2013 Had low back surgery 2010 for disc herniation and has had numbness in his toes since then. Obesity, Class II, BMI 35-39.9 04/06/2015 Obstructive sleep apnea syndrome 04/06/2015 CPAP with good success Pain of both hip joints 02/06/2019 PMH - PAST MEDICAL HISTORY OF 02/2008 release nerves in back Seborrheic keratoses, inflamed 08/10/2015 Left temporal and right check Spinal stenosis of lumbar region Spinal stenosis of lumbar region Stage 3a chronic kidney disease ([facility]) 02/01/2022 Type 2 diabetes mellitus with diabetic polyneuropathy, without long-term current use of insulin ([facility]) 12/12/2015 Urge incontinence 08/10/2015 VENTRICULAR TACHYCARDIA, PAROXYSMAL 07/04/2005 PAST SURGICAL HISTORY Procedure Laterality Date APPENDECTOMY BACK SURGERY HX 2007 CHOLECYSTECTOMY Cholecystectomy COLONOSCOPY FLX DX W/COLLJ SPEC WHEN PFRMD 11/07/2005 Colonoscopy recheck 10 yrs COLONOSCOPY FLX DX W/COLLJ SPEC WHEN PFRMD 07/29/2017 Colonoscopy EGD 05/16/2020 ESOPHAGOGASTRODUODENOSCOPY TRANSORAL DIAGNOSTIC 03/23/2013 EGD EYE SURGERY HX FECAL OCCULT BLOOD TEST 12/14/2016 negative PAST SURGICAL HISTORY OF 03/2008 lumbar decompression, [facility] PAST SURGICAL HISTORY OF 09/2014 left cataract PAST SURGICAL HISTORY OF 2007 right cataract PAST SURGICAL HISTORY OF Left 09/02/2018 partial medial and lateral menisectomy, loose body removal. TONSILLECTOMY HX MEDICATIONS: oxybutynin ER (DITROPAN XL) 10 mg 24 hr tablet Take 1 tablet by mouth once daily. For overactive bladder losartan (COZAAR) 50 mg tablet Take 1 tablet by mouth once daily. CPAP/BIPAP/OTHER New set up: Settings 7 - 20 cm H2O, suitable mask per pt preference (nasal mask), chin strap, head gear, humidity, tubing, lifetime supplies. G47.33 FUAD gabapentin (NEURONTIN) 100 mg capsule Take 2 capsules by mouth three times daily for 90 days. Along with your 800 mg three times a day for a total of 1000 mg three times a day. omeprazole (PRILOSEC) 40 mg capsule Take 1 capsule by mouth once daily. metFORMIN (GLUCOPHAGE) 1,000 mg tablet Take 1 tablet by mouth twice daily with meals. hydroCHLOROthiazide (HYDRODIURIL, ESIDRIX) 12.5 mg tablet Take 1 tablet by mouth once daily. gabapentin (NEURONTIN) 400 mg capsule Take 2 capsules by mouth three times daily for 180 days. diclofenac, EC, (VOLTAREN) 75 mg EC tablet Take 1 tablet by mouth twice daily. For pain/inflammation. Take with food. simvastatin (ZOCOR) 10 mg tablet Take 1 tablet by mouth daily at bedtime. cyanocobalamin (VITAMIN B-12) 1,000 mcg tab Take 1 tablet by mouth once daily. CPAP Use 10 cm in the nose daily at bedtime. ASPIRIN 81 MG TAB Take 81 mg by mouth once daily. ALLERGIES Allergen Reactions Chlorhexidine Gluco* Shortness of Breath Lisinopril Cough Penicillins Intolerance thinks he has had PCN without complication SOCIAL HISTORY: Social History Tobacco Use Smoking status: Former Packs/day: 1.00 Years: 20.00 Pack years: 20.00 Types: Cigarettes Quit date: 04/22/1989 Years since quittin.2 Smokeless tobacco: Never Vaping Use Vaping Use: Never used Substance Use Topics Alcohol use: Yes Comment: OCCASIONAL Drug use: No FAMILY HISTORY Problem Relation Age of Onset Coronary Artery Disease Father age 68; heavy EtOH use Alcohol/Drug Father alcoholism Diabetes Paternal Grandmother Prostate Cancer Other none Colon Cancer Other none known Dementia Paternal Uncle identicle twin to pt's father REVIEW OF SYSTEMS: GENERAL: Negative for: Fever, Chills, or Night sweats HEENT: Negative for: Headache, Nosebleeds, Bleeding Gums RESPIRATORY: Positive for dyspnea on exertion; Negative for: Cough, Blood in Sputum, Wheezing CARDIAC: Positive for dyspnea on exertion; Negative history of chest pain on exertion, orthopnea, paroxysmal nocturnal dyspnea, lower extremity edema, presyncope, syncope, or palpitations GASTROINTESTINAL: Negative for: Abdominal pain, Nausea, Vomiting, Constipation, Diarrhea, Melena, Hematochezia MUSCULOSKELETAL: Positive for: Muscle or joint pain NEUROLOGIC/PSYCHIATRIC: Positive for neuropathy in lower extremities and vertigo SKIN: Negative for: Rashes HEMATOLOGICAL/LYMPHATIC: Negative for: Easy bruising , Easy bleeding ENDOCRINE: Negative for: Heat or cold intolerance, Excessive sweating, Frequent urination, Frequent thirst. OTHER: The rest of the review of systems is unremarkable and negative or non-contributory PHYSICAL EXAMINATION: BP 130/90 Pulse 70 Resp 18 Ht 5' 5.5 (1.66m) Wt 234 lb (106.1kg) SpO2 97% BMI 38.33 kg/(m^2). GENERAL: Obese, in no acute distress. SKIN: No clubbing, no cyanosis. HEENT: Extraocular movements intact; LUNGS: Clear to auscultation bilaterally, no rales, wheezing, or rhonchi. HEART: Regular rate and rhythm; normal S1/S2; no murmurs, gallops, or rubs EXTREMETIES: No peripheral edema. Grade 2/4 distal pulses bilaterally. NEURO: Oriented to person, place and time. Alert, cooperative. PSYCH: Normal mood/affect CARDIAC TESTING: EKG: EKG, 06/28/2022: Sinus rhythm with first-degree AV block Stress Testing: Treadmill stress echocardiogram, 07/25/2005: Patient exercised on the Brendan protocol for 9 minutes achieving 93% of his predicted maximum heart rate. He had normal LV function with ejection fraction 55%. There was no evidence of inducible ischemia. I have personally reviewed the Electrocardiogram and Laboratory Testing. ASSESSMENT: Mr. Espino is a 76 year old male with a history of hypertension, hyperlipidemia, gastroesophageal reflux disease, diabetes, obstructive sleep apnea on CPAP therapy and chronic kidney disease who was referred to cardiology clinic for preoperative cardiac risk assessment prior to laminectomy for spinal stenosis. PLAN AND RECOMMENDATIONS: Pre-operative cardiac assessment prior to laminectomy for lumbar stenosis: Mr. Espino does not have any high-risk features of unstable angina, decompensated heart failure, severe valve disease, or malignant arrhythmias. However, he is not able to engage in at least 4 METS of physical activity due to limitations from his spinal stenosis and lower extremity neuropathy. As such, I recommended he have a nuclear stress test performed for further evaluation of possible underlying coronary ischemia. There is otherwise no indication for perioperative beta-blockade as this is most beneficial in high risk patients undergoing high risk surgery. I will contact him in regards to the results of his above testing and make any further recommendations as necessary. If he is found to have high risk features on his stress test, he will need a cardiac catheterization for further evaluation. Patient's did question whether he could hold aspirin therapy prior to his surgery. As patient does not have any known history of atherosclerotic cardiovascular disease, there is no cardiac indication for ongoing aspirin therapy. As such, I did recommend she discuss this further with his PCP. Hypertension: Patient's blood pressure is reasonably well controlled on his current antihypertensive regimen. 3. Hyperlipidemia: Continue current statin therapy in the setting of underlying diabetes. Patient's lipids well controlled with last LDL 66 in December 2021. 4. Obstructive sleep apnea: Continue CPAP therapy. Ongoing management as per his PCP. 5. Remote tobacco abuse: Patient reports a history of smoking a pack a day for 20 years but quit in 1989. He has no intention of restarting smoking. Kim Alonzo MD documented in this encounter [facility] 06-29-2022 Instructions Kim Alonzo MD - 06/29/2022 2:15 PM EST Stress testing for further evaluation documented in this encounter [facility] 06-29-2022 Nurse Note Patient has no cardiac complaints today. Carmen Renee CMA documented in this encounter [facility] 06-28-2022 Note HNO ID: [id number] Author: RT Lakshmi(R) Service: Radiology Author Type: Electrician Bus Type: Progress Notes Filed: 06/28/2022 3:07 PM Note Text: Radiology Service Progress Note PATIENT NAME: Essie Espino DATE OF SERVICE: June 28, 2022 TIME: 3:05 PM PATIENT IDENTITY VERIFICATION COMPLETED USING TWO (2) IDENTIFIERS: Name and Date of confirmed by patient verbally. FALL SCREENING: Has the patient had 2 falls in the last year or 1 fall with injury or currently using an Ambulatory Assistive Device (Walker, Cane, Wheelchair, Crutches, etc.)? No PATIENT GENDER DATA: Male PATIENT RELEVANT IMPLANT DATA REVIEWED: Not Applicable RADIOLOGY DEPARTMENT: General X-ray: Exam(s) Completed: Chest X-Ray PERIPHERAL IV DATA: Not applicable SIGNED BY: RT Lakshmi(R) June 28, 2022 3:05 PM [facility] 06-28-2022 Miscellaneous Notes Addended by: REUBEN DOMINGUEZ on: 06/28/2022 03:56 PM Modules accepted: Orders, SmartSet documented in this encounter [facility] 06-28-2022 History of Present illness Narrative Radiology Service Progress Note PATIENT NAME: Essie Espino DATE OF SERVICE: June 28, 2022 TIME: 3:05 PM PATIENT IDENTITY VERIFICATION COMPLETED USING TWO (2) IDENTIFIERS: Name and Date of confirmed by patient verbally. FALL SCREENING: Has the patient had 2 falls in the last year or 1 fall with injury or currently using an Ambulatory Assistive Device (Walker, Cane, Wheelchair, Crutches, etc.)? No PATIENT GENDER DATA: Male PATIENT RELEVANT IMPLANT DATA REVIEWED: Not Applicable RADIOLOGY DEPARTMENT: General X-ray: Exam(s) Completed: Chest X-Ray PERIPHERAL IV DATA: Not applicable SIGNED BY: RT Lakshmi(R) June 28, 2022 3:05 PM documented in this encounter [facility] 06-28-2022 History and physical note HISTORY AND PHYSICAL EXAMINATION SERVICE DATE: 06/28/2022 SERVICE TIME: 2:16 PM PRIMARY CARE PHYSICIAN: Yosef Whitaker MD REASON FOR VISIT: Essie Espino is a 76 year old male who is scheduled for Procedure(s): L3-4 Laminectomy (N/A) at the request of Dr. Stephanie Simpson I for routine H&P. My final recommendation will be communicated back to the requesting physician by way of shared medical record or letter. Subjective The patient has the following: ACTIVE PROBLEM LIST Essential Hypertension, Benign Fatty Liver Neuropathy Diabetic Eye Exam (Hcc) Mixed Hyperlipidemia Diverticulosis of Large Intestine Without Hemorrhage Internal Hemorrhoids Without Mention of Complication Colon Cancer Screening Obstructive Sleep Apnea Syndrome Obesity, Class II, BMI 35-39.9 B12 Deficiency Urge Incontinence Prostate Disorder Seborrheic Keratoses, Inflamed Type 2 Diabetes Mellitus With Diabetic Polyneuropathy, Without Long-Term Current Use of Insulin (Hcc) Ex-Smoker Esophageal Stenosis Elevated Lfts Medicare Annual Wellness Visit, Subsequent Chronic Pain of Left Knee Elevated Psa Chronic Pain of Right Knee Pain of Both Hip Joints Coronary Artery Disease Gerd Without Esophagitis Medication Management Leg Pain, Bilateral Left Ankle Pain Bilateral Leg Edema Living Will On File Advance Directive Discussed With Patient Memory Difficulties Ataxia Shuffling Gait Stage 3a Chronic Kidney Disease (Hcc) Spinal Stenosis of Lumbar Region COVID-19 Immunization Status COVID-19 VACCINE (Series Information) Completed 02/10/2022 Imm Admin: COVID-19 booster vaccine, age 12+ yr, bivalent (PFIZER-BIONTECH) 02/16/2021 Imm Admin: COVID-19 vaccine, age 12+ yr (PFIZER-BIONTECH - PURPLE TOP) 07/15/2020 Imm Admin: COVID-19 vaccine, age 12+ yr (PFIZER-BIONTECH - PURPLE TOP) Only the first 3 history entries have been loaded, but more history exists. CHIEF COMPLAINT: Preoperative Examination HPI: Patient presents to PST for the above procedure. Pt states he has had issues with his back for several years and has worsened with time. Pt states current 4/10 pain in the back. Pt states constant numbness due to neuropathy. Patient denies any other problems or concerns at this time. Risks and benefits of the procedure discussed by Surgeon and patient agreed to proceed with planned procedure. REVIEW OF SYSTEMS: General: No weight loss, malaise or fevers. Neurological: Negative for: headaches, seizures and strokes. Respiratory: Positive for: obstructive sleep apnea and CPAP/BiPAP compliant. Negative for: asthma, COPD, current cough, dyspnea and tobacco use. Cardiovascular: Positive for: CAD, hyperlipidemia and hypertension Negative for: AICD/PPM, angina, anticoagulation therapy, atrial fibrillation, chest pain, CHF and DVT/PE. GI: Positive for: liver disease Negative for: abdominal pain, dysphagia, nausea and vomiting. : Negative for: frequent urination, hematuria and urgency. Endocrine: Positive for: diabetes mellitus. Patient's diabetes mellitus is controlled by oral agents. Negative for: hyperthyroidism and hypothyroidism. Hematology: Negative for: anemia, bruises/bleeds easily and chronic anti-coagulation/platelet meds. Oncology: No history of CA metastasis, chemo within 30 days, or radiotherapy within 90 days. No history of oncological symptoms or problems. Psych: Negative for: anxiety and depression. Musculoskeletal: See HPI. Skin: Negative for lesions, rash and itching. PAST MEDICAL HISTORY Diagnosis Date Advance directive discussed with patient 01/01/2022 Discussed 12/2021 Arthritis B12 deficiency 04/06/2015 Bilateral leg edema 06/28/2021 Coronary artery disease Diabetic eye exam (HCC) 11/01/2013 Last done:05/20/2018 Diverticulosis of large intestine without hemorrhage Elevated LFTs 12/11/2016 Elevated PSA 12/30/2018 Esophageal stenosis 08/20/2016 Essential hypertension, benign 01/25/2005 Ex-smoker 08/08/2016 US: 08/15/2016 no AAA Fatty liver 09/28/2008 CT showed diffuse fatty infiltration (incidental on CT chest) Mildly elevated LFT's since 01/26 GERD without esophagitis 06/27/2020 Internal hemorrhoids without mention of complication Leg pain, bilateral 12/28/2020 Living will on file 01/01/2022 DPA: Stacey () Medicare annual wellness visit, subsequent 12/18/2017 Medicare Part B: 06/20/2010 last done: 12/30/2018 Mixed hyperlipidemia 11/01/2013 Morbid obesity due to excess calories ([facility]) 04/06/2015 Neuropathy 10/31/2013 Had low back surgery 2010 for disc herniation and has had numbness in his toes since then. Obesity, Class II, BMI 35-39.9 04/06/2015 Obstructive sleep apnea syndrome 04/06/2015 CPAP with good success Pain of both hip joints 02/06/2019 PMH - PAST MEDICAL HISTORY OF 02/2008 release nerves in back Seborrheic keratoses, inflamed 08/10/2015 Left temporal and right check Spinal stenosis of lumbar region Spinal stenosis of lumbar region Stage 3a chronic kidney disease (HCC) 02/01/2022 Type 2 diabetes mellitus with diabetic polyneuropathy, without long-term current use of insulin ([facility]) 12/12/2015 Urge incontinence 08/10/2015 VENTRICULAR TACHYCARDIA, PAROXYSMAL 07/04/2005 PAST SURGICAL HISTORY Procedure Laterality Date APPENDECTOMY BACK SURGERY HX 2007 CHOLECYSTECTOMY Cholecystectomy COLONOSCOPY FLX DX W/COLLJ SPEC WHEN PFRMD 11/07/2005 Colonoscopy recheck 10 yrs COLONOSCOPY FLX DX W/COLLJ SPEC WHEN PFRMD 07/29/2017 Colonoscopy EGD 05/16/2020 ESOPHAGOGASTRODUODENOSCOPY TRANSORAL DIAGNOSTIC 03/23/2013 EGD EYE SURGERY HX FECAL OCCULT BLOOD TEST 12/14/2016 negative PAST SURGICAL HISTORY OF 03/2008 lumbar decompression, [facility] PAST SURGICAL HISTORY OF 09/2014 left cataract PAST SURGICAL HISTORY OF 2007 right cataract PAST SURGICAL HISTORY OF Left 09/02/2018 partial medial and lateral menisectomy, loose body removal. TONSILLECTOMY HX FAMILY HISTORY Problem Relation Age of Onset Coronary Artery Disease Father age 68; heavy EtOH use Alcohol/Drug Father alcoholism Diabetes Paternal Grandmother Prostate Cancer Other none Colon Cancer Other none known Dementia Paternal Uncle identicle twin to pt's father Social History Tobacco Use Smoking status: Former Packs/day: 1.00 Years: 20.00 Pack years: 20.00 Types: Cigarettes Quit date: 04/22/1989 Years since quittin.2 Smokeless tobacco: Never Vaping Use Vaping Use: Never used Substance Use Topics Alcohol use: Yes Comment: OCCASIONAL Drug use: No Prior to Admission medications as of 06/28/22 2459 Medication Sig Last Dose Taking oxybutynin ER (DITROPAN XL) 10 mg 24 hr tablet Take 1 tablet by mouth once daily. For overactive bladder Taking Yes losartan (COZAAR) 50 mg tablet Take 1 tablet by mouth once daily. Taking Yes CPAP/BIPAP/OTHER New set up: Settings 7 - 20 cm H2O, suitable mask per pt preference (nasal mask), chin strap, head gear, humidity, tubing, lifetime supplies. G47.33 FUAD Taking Yes gabapentin (NEURONTIN) 100 mg capsule Take 2 capsules by mouth three times daily for 90 days. Along with your 800 mg three times a day for a total of 1000 mg three times a day. Taking Yes omeprazole (PRILOSEC) 40 mg capsule Take 1 capsule by mouth once daily. Taking Yes metFORMIN (GLUCOPHAGE) 1,000 mg tablet Take 1 tablet by mouth twice daily with meals. Taking Yes hydroCHLOROthiazide (HYDRODIURIL, ESIDRIX) 12.5 mg tablet Take 1 tablet by mouth once daily. Taking Yes gabapentin (NEURONTIN) 400 mg capsule Take 2 capsules by mouth three times daily for 180 days. Taking Yes diclofenac, EC, (VOLTAREN) 75 mg EC tablet Take 1 tablet by mouth twice daily. For pain/inflammation. Take with food. Taking Yes simvastatin (ZOCOR) 10 mg tablet Take 1 tablet by mouth daily at bedtime. Taking Yes cyanocobalamin (VITAMIN B-12) 1,000 mcg tab Take 1 tablet by mouth once daily. Taking Yes CPAP Use 10 cm in the nose daily at bedtime. Taking Yes ASPIRIN 81 MG TAB Take 81 mg by mouth once daily. Taking Yes No medication comments found. ALLERGIES Allergen Reactions Chlorhexidine Gluco* Shortness of Breath Lisinopril Cough Penicillins Intolerance thinks he has had PCN without complication Objective PHYSICAL EXAM: General: alert and oriented, healthy appearance and obese. Pertinent negatives noted - not distressed. Skin: normal color, no rash or lesions. HEENT: EOM intact and pupils equal round. Cardiovascular: regular rate and rhythm, normal S1 and S2, no rub, murmurs, or gallop. Respiratory: normal breath sounds, no wheezes or crackles. No chest wall deformity or tenderness. Abdomen: bowel sounds present. Pertinent negatives noted - no abnormal bowel sounds. Extremities: no deformity, no edema or tenderness, no joint swelling or clubbing. Neurological: normal cognition and motor skills. Gait normal. No weakness or sensory deficit. PAIN ASSESSMENT: Pain Pain Level: 4 Description: Aching Frequency: Continuous VITALS: BP 123/76 Pulse 69 Temp 97.5 Resp 16 Ht 5' 5.5 (1.66m) Wt 232 lb (105.2kg) SpO2 96% BMI 38.01 kg/(m^2). Diagnostic tests reviewed for today's visit: Lab Value Units Date High Low HB 12.8 g/dL 01/31/2022 17.0 13.0 HCT 41.0 % 01/31/2022 51.0 39.0 WBC 8.59 k/uL 01/31/2022 11.00 3.70 PLT 239 k/uL 01/31/2022 400 150 NA 136 mmol/L 01/31/2022 144 136 K 4.7 mmol/L 01/31/2022 5.1 3.7 GLUC 113 mg/dL 01/31/2022 99 74 BUN 29 mg/dL 01/31/2022 24 9 CREAT 1.27 mg/dL 01/31/2022 1.22 0.73 PTSEC No results within date range. INR No results within date range. APTT No results within date range. ALT 53 U/L 01/01/2022 54 10 AST 32 U/L 01/01/2022 40 14 TBILI 0.2 mg/dL 01/01/2022 1.3 0.2 TSH 1.230 mIU/L 01/01/2022 4.200 0.270 Lab Value Units Date High Low HCGQT No results within date range. UHCG No results within date range. HCG, BODY* No results within date range. Lab Value Units Date High Low ABORHD No results within date range. ABSCREEN No results within date range. Hemoglobin A1C (%) Date Value 01/01/2022 6.3 06/26/2021 6.2 12/21/2020 6.3 06/24/2020 6.3 06/19/2019 6.6 12/24/2018 6.7 06/14/2018 6.6 No results found for this or any previous visit (from the past 8760 hour(s)). No results found for this or any previous visit (from the past 66861 hour(s)). Assessment Patient has the following medical conditions which may affect chiquita-operative course: Type 2 diabetes mellitus with diabetic polyneuropathy, without long-term current use of insulin ([facility]) A1C 6.3 on 01/01/22. Metformin 1000mg. Stage 3a chronic kidney disease (HCC) Cr 1.27 on 01/31/22 Obstructive sleep apnea syndrome CPAP compliant. Mixed hyperlipidemia Simvastatin 10mg Essential Hypertension, Benign Losartan 50mg, HCTZ 12.5mg Coronary artery disease ASA 81mg. Pt denies prior AR, Stents, or bypass. Cardiac optimization requested. Stress ECHO 07/25/05 STRESS ECHO RESULTS Resting study (technically limited) wall motion is normal. Visually estimated LVEF is 55% Exercise study (technically limited) wall motion is normal. Visually estimated LVEF >70% CONCLUSIONS Normal stress echo, negative for ischemia on views obtained at 9 mets, 93% MPHR EKG done In [facility] shows NSR with 1st degree AV block. [place]anton Activity Status Index: METS: Walk a block or two on level ground (2.75 METs) DASI Score: 2.75 (Pt limited by back pain and neuropathy.) Patient denies any chest pain or undue shortness of breath with the above physical activity. Clinical Frailty Scale: 3. Well, with treated comorbid disease ARISCAT Score: Age: 51-80 Preoperative SpO2: >=96% Respiratory infection in the last month: No Preoperative anemia: No Surgical incision: peripheral Duration of surgery: 2-3 hrs Emergency procedure: No ARISCAT Score: 19 ANESTHESIA FINDINGS: Intubation History: No history of difficult intubation Significant Anesthesia Considerations: none Airway History: No history of difficult airway I - PHYSICAL EVALUATION AIRWAY Patient intubated: No. DENTAL Dental findings: teeth intact and missing tooth/teeth. Dentures, upper: partial. II - ANESTHESIA PLAN Anesthetic Plan: general Beta Omid Monitoring Plan Post Procedure Analgesic Plan Prepared for Surgery: CONSULTS: The following consults have been initiated at this time: anesthesia (Gerontology (scheduled)), cardiology (Scheduled 06/29) and primary care/internal medicine (Scheduled 07/04). Planned Anesthetic: general The Following Tests/Procedures Have Been Initiated: Orders Placed This Encounter XR CHEST 2V FRONTAL/LAT Standing Status: Future Standing Expiration Date: 07/28/2023 CBC Standing Status: Future Standing Expiration Date: 08/28/2022 COMP METABOLIC PANEL Standing Status: Future Standing Expiration Date: 08/28/2022 Urinalysis with Microscopic Standing Status: Future Standing Expiration Date: 08/28/2022 PROTHROMBIN TIME/PT Standing Status: Future Standing Expiration Date: 08/28/2022 ACTIVATED PTT Standing Status: Future Standing Expiration Date: 08/28/2022 STAPH AUREUS PCR Standing Status: Future Standing Expiration Date: 08/28/2022 HGB A1C Standing Status: Future Standing Expiration Date: 08/28/2022 Type and Screen, 30 day Standing Status: Future Standing Expiration Date: 08/28/2022 Order Specific Question: Hospital of Planned Surgery or Procedure: Answer: [facility] Confirm Blood Type Order Comments: Draw separate from TSCR Standing Status: Future Standing Expiration Date: 08/28/2022 Order Specific Question: Did Blood Bank direct you to place this order: Answer: No - Presurgical Workflow Urine Culture Standing Status: Future Standing Expiration Date: 08/28/2022 Order Specific Question: Source Answer: URINE-MIDSTREAM CLEAN CATCH ECG COMPLETE W INTERPRETATION Standing Status: Future Standing Expiration Date: 06/29/2023 Implantable Devices: IOLs bilateral Pt instructed to take blood pressure and heart medications DOS. Pt instructed to Hold Metformin DOS. Pt instructed to contact surgeon and prescribing provider for instructions regarding blood thinners. The Following Tests/Procedures Have Been Initiated: CBC, CMP, T&S, ABO, CXR, ECG, PT, PTT, UA, UC ordered per KIEL. Assessment/Plan Spinal stenosis, lumbar region, without neurogenic claudication [M48.061] PLAN Diagnosis: Planned Procedure: Procedure(s): L3-4 Laminectomy (N/A) I spent a total of 50 minutes on the date of the service which included preparing to see the patient, [id number] patient care, completing clinical documentation, performing a medically appropriate examination, and counseling and educating the patient/family/caregiver. Instructions Given to Patient: Instructions located in the after visit summary. Patient given verbal and written preop instructions and voices comprehension and compliance. SIGNATURE: MELINDA Galindo PATIENT NAME: Essie Espino DATE: June 28, 2022 TIME: 12:36 PM PAGER/CONTACT #: documented in this encounter [facility] 06-28-2022 Instructions MELINDA Galindo - 06/28/2022 12:36 PM EST PATIENT PREOPERATIVE INSTRUCTIONS Your surgeon has scheduled for your procedure at this surgery center: [facility]: [phone], [address] [id number] Please enter through the main entrance and proceed to the blue elevators. The surgery welcome center is located to the left of the blue elevator. Please read below carefully for your personalized instructions. Arrival Time for Surgery: DATE: 07/12/22 - To obtain your ARRIVAL TIME for surgery, call your physician's office the day before your surgery. - If your surgery is scheduled for Saturday, call the Saturday before. Your surgeon's flight crew scheduler will tell you what time to call the office. - Please be aware that emergency situations arise, which may delay or change your surgical time. If this happens, we will notify you as soon as possible and regret any inconvenience. Requirement for Vaccinations : 72-hour period between getting vaccine and date of surgery. Dietary Restrictions: - Nothing to eat after midnight. Blood Thinning Medications: - Stop NSAIDS (Ibuprofen, Advil, Aleve, Motrin, Celebrex, Mobic, etc.) 7 days before surgery, as directed by your surgeon. You may take Tylenol (Acetaminophen) or any of your pain medications that do not contain aspirin or NSAIDS as needed. IF YOU TAKE ANY OF THE FOLLOWING BLOOD THINNERS, PLEASE CONTACT YOUR SURGEON AND THE PHYSICIAN WHO PRESCRIBES IT FOR YOU IN ORDER TO GET PERIOPERATIVE INSTRUCTIONS SOON POSSIBLE. BLOOD THINNERS: Aspirin , Coumadin, Plavix, Eliquis, Pradaxa, Xarelto, Lovenox, Brilinta, Effient, Savaysa, Arixtra, etc - Stop Vitamin E, fish oil, multivitamins, Marijuana, CBD oil and other over the counter herbals and dietary supplements 7 days before surgery. -This would not apply to cancer patients who are prescribed Marinol or any other prescription form on marijuana or CBD. -exception Dr. Hopson and Dr. Tran want their patients npo at midnight. Medications: Approved medications to take the morning of surgery with a sip of water: BP, HCTZ, Heart, thyroid, psych, seizure, and pain medications excluding NSAIDS. Use inhalers as prescribed. Please bring inhalers. Diabetes Please follow up with the provider that manages your diabetes and how to prepare you for surgery. If you are taking the following medications for Type 2 diabetes: Canagliflozin (INVOKANA), dapagliflozin (FARXIGA), and empagliflozin (JARDIANCE) should each be discontinued at least 3 days before scheduled surgery. Ertugliflozin (STEGLATRO) should be discontinued at least four days before scheduled surgery. If you have a stimulator, implant or pump that requires a remote please bring the remote with you day of surgery. Erectile dysfunction: If you take any medications for erectile dysfunction- Cialis (Tadalafil), Levitra, Staxyn, (Vardenafil), Viagra (Sildenenafil). Please do not take these for 48 hours before surgery. Pain Medications: Tylenol for pain as needed and if you are not allergic to. If you start any new medications after today's visit, please contact the surgeon's office. Important Reminders: - If you use CPAP/BIPAP, bring the machine with you to the surgery center. - If you are prescribed inhalers for breathing, continue using them AND bring them to the surgery center. - Candy, mints, gum and tobacco products are NOT permitted the morning of surgery. - Hearing aids, dentures and glasses may be worn the morning of surgery. - NO jewelry, body piercings, makeup, hairpins or contacts are to be worn the day of surgery. -Oral hygiene and a shower or bath is required the evening before or the morning of surgery. Use the Hibiclens body wash supplied to you along with the instruction. - NO lotion, creams, powders or deodorants on the skin the day of surgery -Wear loose, comfortable clothing that will accommodate bandages. -Your length of stay will be determined by your surgeon - You will need to have someone else (Family or friend) drive you home once discharged from the hospital. You are not allowed to drive yourself home after surgery. - YOU MUST HAVE A RESPONSIBLE SILVERWARE WASHER TAKE YOU HOME. A DRAPERY HANGER, CAB OR UBER SILVERWARE WASHER CANNOT BE MADE A RESPONSIBLE SILVERWARE WASHER. - You cannot stay in a hotel alone after outpatient surgery. You will not be permitted to have your surgery, if you do not have someone to take care of you. CCAG: Given COVID 19 pandemic, one visitor is allowed in the hospital. They may wait in the surgery waiting room while you are in surgery but must wear a mask. Only one visitor will be permitted to visit you while your admitted after surgery. If you develop symptoms such as a fever, cold, or flu, or have other changes to your health within TWO DAYS of scheduled surgery or the morning of surgery, please contact the surgery center above. Personal Belongings: - Leave ALL valuables and money at home or with family members. - You will need a form of ID and insurance card to check in the morning of surgery. - You will have to wear a hospital gown during your stay but if you wish to bring undergarments for after surgery you may. Ambulatory surgery center [place]- orthopedic patients needing a walker should bring the walker into the building day of surgery. Orthopedic patients having surgery [facility] listed as outpatient should bring their walker into the building. Orthopedic patients having surgery [facility] listed as to be admitted should leave their walkers in the car or with a family member. Kerriiclens provided MELINDA Galindo 06/28/22 documented in this encounter [facility] 06-21-2022 Miscellaneous Notes Download is satisfactory. Will sign approval from sleep medicine side for surgery. Patient is continue nightly use of CPAP. Mary Images from the original note were not included. 30 day download requested by provider. I called [facility] and the patient had his set up appointment at [facility] this morning. They will tag us with new machine. Old machine was a dreamstation and the last data was from 03.22.23-04.22.22. documented in this encounter [facility] 06-17-2022 Note HNO ID: [id number] Author: Casey Zamarripa, PhD Service: ? Author Type: Psychologist Type: Progress Notes Filed: 06/17/2022 10:23 AM Note Text: Neuropsychology Consultation Name: Essie Espino ?Don? Referred by: Margot Bravo MD Date of Evaluation: 06/01/2022 Date of : 1945 Date of Feedback: 06/15/2022 Examiner: Casey Zamarripa, PhD Date of Report: 06/17/2022 Reason for Referral: Mr. Blake Espino is a 76-year-old, right-handed, , white, male referred for a neuropsychological evaluation for memory problems in the setting of shuffling gait. He was accompanied by his who provided collateral history. Procedures: Available medical records were obtained and reviewed. Verbal informed consent was obtained prior to the clinical interview following a discussion of the nature of the evaluation, test procedures, risks and benefits, professional records, and confidentiality. The patient acknowledged understanding the purpose and/or need for the third green party () to be present and the circumstances and extent to which confidential information may be disclosed to the third green party. A clinical interview was then conducted with the patient and his , and the following tests were administered by the examiner: Mini Mental State Examination (MMSE); Clock Drawing Test; Test of Premorbid Functioning (TOPF); Lucy Adult Intelligence Scale-4th Edition (WAIS-IV: Digit Span); Neuropsychological Assessment Battery (NAB: Naming, Story Learning); Lowery Verbal Learning Test-Revised (HVLT-R); Brief Visuospatial Memory Test-Revised (BVMT-R); Repeatable Battery for the Assessment of Neuropsychological Status (RBANS: Figure Copy, Line Orientation; Coding); [place] Making Test, Parts A AND B; Complex Ideational Material; Grooved Pegboard Test; Controlled Oral Word Association Test (FAS); Category Fluency (Animals); Sentence Repetition Test; Geriatric Depression Scale-Short Form (GDS-SF); Geriatric Anxiety Scale-10 item (GAS-10); Quick Dementia Rating System (QDRS); Neuropsychiatric Inventory-Questionnaire (NPI-Q). The testing was scored and interpreted. A follow-up appointment was held to review the results, and this report was finalized. Presenting Problem AND Background Information: Mr. Espino and his reported a 3-year history of worsening memory problems. The onset was gradual. He forgets conversations and repeats himself. He also has issues with word-finding. They denied difficulty with remote memory, attention, speech, or spatial functioning. He and his live alone. He manages his own medications without any issues. He stopped driving about 6-months ago after he took his hand off of the wheel while driving. They said he went to change gears, but didn't realize he was driving an automatic. His wanted him to stop driving prior to this due to his neuropathy. She also said a few times he forgot the turn to a familiar location. He uses a computer but sometimes forgets how to do things and asks for help; however, he reportedly manages their stocks online without any issues. He uses appliances without difficulty. They go grocery shopping together; she thinks he could manage by himself. His handles the finances and web systems developer and this is longstanding. He has balance problems; no falls or tremors. He has a walker but only uses for long distances. They denied changes in his handwriting or sense of smell. He has had urinary and bowel incontinence for about 2 years. He said it is more of an urgency issue; he waits too long to get up and then can't make it in time. This is mostly a problem in public and not at home. A few times he has had incontinence in public and did not seem bothered by it, which concerned his . She denied other major changes in his behavior such as impulsivity. A few times he heard something outside and thought someone was breaking in; one time he thought he saw someone walking outside that wasn't there. He denied formed visual hallucinations or hearing voices. They denied dream enactment behavior. He has chronic pain in his back and knees; he is not able to stand for long periods of time. He has given up some hobbies because of he can't stand for long periods of time, and this makes him feel down. He is sleeping about 9.5 hours per night with CPAP. He gets up 2-3 times per night. He occasionally falls asleep during the day. Medical History: Arthritis, B12 deficiency, bilateral leg edema, CAD, diverticulosis of large intestine without hemorrhage, elevated LFTs, elevated PSA, esophageal stenosis, HTN, HLD, fatty liver, GERD, internal hemorrhoids, bilateral leg pain, obesity, neuropathy, FUAD on CPAP, stage 3a chronic kidney disease, DM-II. -Denied history of TIA/stroke, seizure, TBI. -He has not had prior neuropsych testing Data Reviewed: -Neurology note -MMSE: (06/19/18), 30 (01/01/22) -B (more content not included)... [facility] 06-17-2022 History of Present illness Narrative Images from the original note were not included. Neuropsychology Consultation Name: Essie Lozano Referred by: Margot Bravo MD Date of Evaluation: 06/01/2022 Date of : 1945 Date of Feedback: 06/15/2022 Examiner: Casey Zamarripa, PhD Date of Report: 06/17/2022 Reason for Referral: Mr. Blake Espino is a 76-year-old, right-handed, , white, male referred for a neuropsychological evaluation for memory problems in the setting of shuffling gait. He was accompanied by his who provided collateral history. Procedures: Available medical records were obtained and reviewed. Verbal informed consent was obtained prior to the clinical interview following a discussion of the nature of the evaluation, test procedures, risks and benefits, professional records, and confidentiality. The patient acknowledged understanding the purpose and/or need for the third green party () to be present and the circumstances and extent to which confidential information may be disclosed to the third green party. A clinical interview was then conducted with the patient and his , and the following tests were administered by the examiner: Mini Mental State Examination (MMSE); Clock Drawing Test; Test of Premorbid Functioning (TOPF); Lucy Adult Intelligence Scale-4th Edition (WAIS-IV: Digit Span); Neuropsychological Assessment Battery (NAB: Naming, Story Learning); Lowery Verbal Learning Test-Revised (HVLT-R); Brief Visuospatial Memory Test-Revised (BVMT-R); Repeatable Battery for the Assessment of Neuropsychological Status (RBANS: Figure Copy, Line Orientation; Coding); [place] Making Test, Parts A & B; Complex Ideational Material; Grooved Pegboard Test; Controlled Oral Word Association Test (FAS); Category Fluency (Animals); Sentence Repetition Test; Geriatric Depression Scale-Short Form (GDS-SF); Geriatric Anxiety Scale-10 item (GAS-10); Quick Dementia Rating System (QDRS); Neuropsychiatric Inventory-Questionnaire (NPI-Q). The testing was scored and interpreted. A follow-up appointment was held to review the results, and this report was finalized. Presenting Problem & Background Information: Mr. Espino and his reported a 3-year history of worsening memory problems. The onset was gradual. He forgets conversations and repeats himself. He also has issues with word-finding. They denied difficulty with remote memory, attention, speech, or spatial functioning. He and his live alone. He manages his own medications without any issues. He stopped driving about 6-months ago after he took his hand off of the wheel while driving. They said he went to change gears, but didn't realize he was driving an automatic. His wanted him to stop driving prior to this due to his neuropathy. She also said a few times he forgot the turn to a familiar location. He uses a computer but sometimes forgets how to do things and asks for help; however, he reportedly manages their stocks online without any issues. He uses appliances without difficulty. They go grocery shopping together; she thinks he could manage by himself. His handles the finances and web systems developer and this is longstanding. He has balance problems; no falls or tremors. He has a walker but only uses for long distances. They denied changes in his handwriting or sense of smell. He has had urinary and bowel incontinence for about 2 years. He said it is more of an urgency issue; he waits too long to get up and then can't make it in time. This is mostly a problem in public and not at home. A few times he has had incontinence in public and did not seem bothered by it, which concerned his . She denied other major changes in his behavior such as impulsivity. A few times he heard something outside and thought someone was breaking in; one time he thought he saw someone walking outside that wasn't there. He denied formed visual hallucinations or hearing voices. They denied dream enactment behavior. He has chronic pain in his back and knees; he is not able to stand for long periods of time. He has given up some hobbies because of he can't stand for long periods of time, and this makes him feel down. He is sleeping about 9.5 hours per night with CPAP. He gets up 2-3 times per night. He occasionally falls asleep during the day. Medical History: Arthritis, B12 deficiency, bilateral leg edema, CAD, diverticulosis of large intestine without hemorrhage, elevated LFTs, elevated PSA, esophageal stenosis, HTN, HLD, fatty liver, GERD, internal hemorrhoids, bilateral leg pain, obesity, neuropathy, FUAD on CPAP, stage 3a chronic kidney disease, DM-II. -Denied history of TIA/stroke, seizure, TBI. -He has not had prior neuropsych testing Data Reviewed: -Neurology note -MMSE: 28/30 (06/19/18), 30/30 (01/01/22) -Brain MRI on 05/02/22 was read as: No acute brain findings. Moderate to severe generalized brain volume loss. This is disproportionately greater in the anterior-medial temporal lobe and insular regions. Correlate with patient's cognitive status. Based on the axial T2 flow void pattern, proximal intracranial arterial vasculature, major cortical draining veins, and dural venous sinuses are patent. -MRI L-Spine on 05/02/22 was read as: Advanced lower lumbar spondylosis as discussed. Severe spinal stenosis at L3-L4. Lateral recess and foraminal narrowing at lower lumbar levels as described. Would expect symptoms of spinal claudication and lower extremity radiculopathy. No impingement of the distal cord. Degree of obesity may contribute to mechanical back pain. Anatomic Thoracic/Lumbar Variant: None. L4-5 is considered the level of the iliac crest and assume there are 5 lumbar-type vertebrae. -Available labs. WNL-B12, folate, TSH. A1C-6.3 (01/11/22) Current Medications: Gabapentin, omeprazole, metformin, hydrochlorothiazide, diclofenac, simvastatin, losartan, oxybutynin, cyanocobalamin. Relevant Developmental, Educational & Occupational History: Mr. Espino met all developmental milestones on time to his knowledge. 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 He described himself as an average student. He was a slow reader as a child, but attributed this in part to frequently changing schools growing up. He was retained in the 3rd grade after the family moved and he was behind. He never received extra help in school growing up. He reported some difficulty as a child with attention and talking in class. 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 Relevant Psychiatric & Substance Use History: Mr. Espino denied a history of psychiatric diagnoses, treatments, or hospitalizations. He denied past or current substance abuse. He drinks alcohol occasionally. He denied tobacco or recreational drug use. Relevant Social History: Mr. Esipno is . He has 4 children and many grandchildren. He is a monolingual Syriac speaker. He is an only child. Relevant Family History: Dementia (paternal uncle-father's twin, likely AD started in his 70s), CAD (father), alcohol abuse (father). Mental Status & Behavioral Observations: Mr. Espino was tested on 1 occasion. He presented as an adequate historian, but a few times he forgot part of a story and was corrected by his . He was appropriately dressed and adequately groomed. He wore his glasses and bilateral hearing aids during testing. He reported adequate vision/hearing for the purposes of testing, although some mild hearing loss was noted conversationally (the examiner spoke louder during testing and this was generally helpful). Gait was slow, and somewhat shuffling. He was able to rise from a chair unassisted, albeit slowly. No tremors or abnormal motor movements were observed. Speech was spontaneously initiated, fluent, and articulate. Comprehension was intact. A few instances of mild word-finding problems were noted during clinical interview. He was unsure how to describe his recent mood when asked directly. Affect was euthymic. He denied suicidal or homicidal ideation. Thought process was mildly circumstantial, but able to be redirected. There was no overt evidence of psychosis. Insight was intact. Rapport was easily established and maintained throughout. Overall, he was pleasant and cooperative with all evaluation procedures. He appeared to put forth his best effort across all tests administered. He took 1 break during testing. MMSE was 28/30 (orientation 9/10 [incorrect county], recall 2/3). Clock drawing was normal. NOTE: To protect against COVID-19, testing was conducted with appropriate PPE, which deviates from standard administration. While every effort was made to minimize the impact of PPE on test results, the diagnostic conclusions and recommendations for treatment provided in this report are being advanced with these reservations. Test Results: As part of standard test procedure, empirically validated performance validity tests were interspersed throughout the test battery. The patient performed in the valid range on three of three standalone and embedded performance validity tests. As such, the results are judged to be a valid and accurate representation of his cognitive functioning. A summary of individual test scores can be found at the end of the report. Significant test findings are discussed below. General Intellectual: The TOPF was in the average range. When viewed together with his educational and occupational history, his general abilities are estimated to be average. Attention & Speed of Information Processing: Notable for an isolated low score on a test of processing speed/psychomotor speed. All other tests in this domain were broadly normal. Fundamental Language: Within normal expectations Learning & Memory: Notable for isolated low scores on a list learning test (learning trials, delayed recognition); delayed recall was somewhat weak but broadly normal (low average). performance was essentially normal on another test of verbal memory and a test of visual memory. Visuospatial & Constructional: Within normal expectations Executive Functions: Notable for isolated low score on a timed test of alternating number-letter sequencing (TMTB; 1 sequencing error). All other tests in this domain were broadly normal. Rating Scales: He endorsed mild symptoms of depression and minimal symptoms of anxiety on brief mood screening measures. Of note, on other recent mood screeners (MyChart) he reported minimal depression. His characterized him as functioning in an early mild dementia stage on a collateral informant measure used to inform staging. On a collateral measure of neuropsychiatric symptoms she endorsed moderate hallucinations and depression/dysphoria that cause moderate caregiver distress. As described above, their report was not strongly suggestive of hallucinations. Clinical Impressions: Mr. Blake Espino is a 76-year-old male referred for a neuropsychological evaluation for memory problems in the setting of shuffling gait. The neuropsychological test results showed intact functioning in most cognitive domains, including basic auditory attention, auditory working memory, language, visual memory, and spatial abilities. Mixed performance was noted on tests of processing speed/psychomotor speed, executive functions, and verbal memory, with isolated low scores in these domains. His memory testing showed difficulty on a list learning task with an irregular pattern that is not usually associated with neurological dysfunction (stronger delayed recall vs delayed recognition). This may reflect an attentional lapse and/or hearing issues; memory for a short story was normal. Overall, the pattern of scores suggests possible mild frontal-subcortical system dysfunction, most likely secondary to reduced processing speed, without strong evidence of shanel impairment in any cognitive domain. The test findings are better than expected given his 's report and atrophy on imaging. It is unclear what accounts for the discrepancy. Fluctuating cognitive symptoms is a consideration, possibly secondary to pain, fatigue, mood, or other psychosocial factors; NPH was previously considered. An emerging degenerative condition cannot be ruled out. I recommend repeat testing in about 1-year to clarify the nature of his cognitive symptoms. Of note, one of his medications (oxybutynin) is associated with cognitive dysfunction and is not recommended for older adults. Recommendations: Repeat neuropsychological testing in 1-year. Family should monitor cognitive functioning and provide increased support as needed. Psychology or psychiatry referral can be considered, but may just want to monitor for now. Follow-Up: The test findings, clinical impressions, and recommendations were discussed with and Mrs. Espino. They were given an opportunity to ask questions and indicated that they understood the results of the evaluation and recommendations. I can see him again for repeat testing in 1-year as clinically indicated. He was encouraged to contact me if he has any questions in the future. It was a pleasure participating in the care of Mr. Espino. Please contact me if you have any questions about the evaluation ([phone]). Casey Zamarripa, PhD Clinical Neuropsychologist Test Summary This score sheet is provided for the convenience of other professionals. It accompanies a written report and should not be interpreted without reference to the report. Test scores are relative to age, gender, and education as available and appropriate. Scores are reported as follows: SCORES MEAN STANDARD DEVIATION Standard Scores 100 15 Scaled Scores 10 3 T Scores 50 10 Z Scores 0 1 Test of Premorbid Functioning (TOPF) Standard Score TOPF 98 Lucy Adult Intelligence Scale - 4th Edition (WAIS-IV) Subtest Scaled Score Digit Span 9 Digit Span Forward 7 Digit Span Backward 10 Digit Span Sequencing 9 Neuropsychological Assessment Battery (NAB) Language Module Subtest T Score Naming 59 Neuropsychological Assessment Battery (NAB) Memory Module Subtest T Score Percentile Story Learning Phrase Unit Immediate Recall 61 Story Learning Phrase Unit Delayed Recall 48 Story Learning Percent Retention (79%) 17 Lowery Verbal Learning Test-Revised (HVLT-R) T Score Trial 1 40 Trial 2 35 Trial 3 30 Total Recall 33 Delayed Recall 38 Retention (100%) 56 Recognition Discrimination Index ? 20 Brief Visuospatial Memory Test-Revised (BVMT-R) T Score Percentile Trial 1 47 Trial 2 40 Trial 3 40 Total Recall 41 Learning 41 Delayed Recall 47 Percent Retained (117%) >16 Recognition Hits >16 Recognition False Alarms >16 Recognition Discrimination Index >16 Repeatable Battery for the Assessment of Neuropsychological Status (Form A) Index Standard Score Visuospatial/Constructional 102 Subtest Scaled Score Cumulative Percentage Figure Copy 12 Line Orientation 26-50 Coding 4 Verbal Fluency ([place]augh) T Score Phonemic Fluency (F-A-S) 39 Semantic Fluency 47 [place] Making Test ([place]augh) T Score Trails A 40 Trails B 28 Complex Ideational Material (Pat) Raw = 12/12 Scaled Score = 12 Grooved Pegboard Test (Pat) T Score Dominant Hand 44 Nondominant Hand 39 Rating Scales Total Score GDS-SF 6 GAS-10 5 QDRS 6 Services associated with this evaluation: 06/01/2022: 25322 x 60 minutes 87447 x 30 minutes 34613 x 120 minutes 06/15/2022: 52526 x 60 minutes 58198 x 180 minutes documented in this encounter [facility] 06-13-2022 Miscellaneous Notes The following approved medication requests have been transmitted electronically. Requested Prescriptions Signed Prescriptions Disp Refills losartan (COZAAR) 50 mg tablet 90 tablet 1 Sig: Take 1 tablet by mouth once daily. Authorizing Provider: YOSEF WHITAKER MD Patient has been identified by name and date of : Yes Patient phones for refill(s): Requested Prescriptions Pending Prescriptions Disp Refills losartan (COZAAR) 50 mg tablet 90 tablet 1 Sig: Take 1 tablet by mouth once daily. Date of last office visit in primary care: LORENZA 01/01/22 Appointment scheduled 07/04/22 Last 2 Encounter Wt Readings: Date: Wt: 06/11/2022 104.3 kg (230 lb) 03/28/2022 108 kg (238 lb) Please advise. Thank you. CARLOS Schulte documented in this encounter [facility] 06-13-2022 Miscellaneous Notes Patient has been identified by name and date of : Yes Requested Prescriptions Pending Prescriptions Disp Refills oxybutynin ER (DITROPAN XL) 10 mg 24 hr tablet 90 tablet 1 Sig: Take 1 tablet by mouth once daily. For overactive bladder RX INSTRUCTIONS: Patient aware RX will be sent to pharmacy. No need to notify patient. Amy Bueno MA Lorenza: 12/2021 Nov: 06/2022 Last refill; 11/2021 documented in this encounter [facility] 06-11-2022 Note HNO ID: [id number] Author: Stephanie Simpson I, MD Service: ? Author Type: Physician Type: Progress Notes Filed: 06/11/2022 1:42 PM Note Text: NEUROSURGERY CONSULT NOTE Stephanie Simpson MD Chair, Clinical Neurosciences Director, Spinal Neurosurgery [facility] Date of visit: June 11, 2022 Patient Name: Mr.Donald Neema Espino Date of : 1945 Current Age: [age] year old Sex: male MRN/E# [id number] Last Office Visit: Visit date not found Chief Complaint: Patient presents with: New Patient Evaluation Past Medical/Surgical History: Essie Espino is a 76 year old male who is referred by Dr. Margot Bravo with Neurology for neurosurgical evaluation of the lumbar spine. The patient has a history of arthritis, Vitamin B12 deficiency, CAD, esophageal stenosis, HLD, Obesity (39.00), Neuropathy, CKD, DM2(HgbA1c 6.3% 01/01/2022) . He has a prior history of low back surgery. +ASA Smoking: Former Alcohol Use: occasional HISTORY OF PRESENT ILLNESS : The patient presents to the office today as a new patient with MRI and x-ray imaging of the lumbar spine. He states that he underwent a lumbar surgery in [address] To for low back pain and leg pain as a result of a fall from a ladder. He did very well post operatively. He reports that he had onset of balance/gait issues with left PSIS region pain approximately 2 years ago that acutely worsened over the past 3 months. He does report bilateral LE weakness and his legs feeling fatigued with standing/walking for any length of time. This improves almost immediately with sitting. He reports having the urge for both bowel/urinary, however has had several episodes of incontinence because he has been unable to make it to the restroom in time. He denies any radicular leg symptoms. He denies any neck pain or hand difficulties. Overall his balance/gait issues and being unable to ambulate are most concerning to him. He is here for image review, evaluation and plan of care. Symptoms: balance/gait issues, left PSIS region pain, bilateral LE weakness PREVIOUS CONSERVATIVE TREATMENTS: Gabapentin Diclofenac Oral PREVIOUS SURGERY: Low back surgery in [address] To in [place] PAIN EVALUATION 06/04/2022 1002 Pain Level: 5 Pain Location: Back-Lower Description: Aching;Sharp;Tightness Duration Units: Months Frequency: Continuous Intervention/Comfort measure: Medication;Positioning Comments: Pain lessened with medication PAST MEDICAL HISTORY Diagnosis Date Advance directive discussed with patient 01/01/2022 Discussed 12/2021 Arthritis B12 deficiency 04/06/2015 Bilateral leg edema 06/28/2021 Coronary artery disease Diabetic eye exam (HCC) 11/01/2013 Last done:05/20/2018 Diverticulosis of large intestine without hemorrhage Elevated LFTs 12/11/2016 Elevated PSA 12/30/2018 Esophageal stenosis 08/20/2016 Essential hypertension, benign 01/25/2005 Ex-smoker 08/08/2016 US: 08/15/2016 no AAA Fatty liver 09/28/2008 CT showed diffuse fatty infiltration (incidental on CT chest) Mildly elevated LFT's since 01/26 GERD without esophagitis 06/27/2020 Internal hemorrhoids without mention of complication Leg pain, bilateral 12/28/2020 Living will on file 01/01/2022 DPA: Stacey () Medicare annual wellness visit, subsequent 12/18/2017 Medicare Part B: 06/20/2010 last done: 12/30/2018 Mixed hyperlipidemia 11/01/2013 Morbid obesity due to excess calories (HCC) 04/06/2015 Neuropathy 10/31/2013 Had low back surgery 2010 for disc herniation and has had numbness in his toes since then. Obesity, Class II, BMI 35-39.9 04/06/2015 Obstructive sleep apnea syndrome 04/06/2015 CPAP with good success Pain of both hip joints 02/06/2019 PMH - PAST MEDICAL HISTORY OF 02/27 release nerves in back Seborrheic keratoses, inflamed 08/10/2015 Left temporal and right check Stage 3a chronic kidney disease (HCC) 02/01/2022 Type 2 diabetes mellitus with diabetic polyneuropathy, without long-term current use of insulin (HCC) 12/12/2015 Urge incontinence 08/10/2015 VENTRICULAR TACHYCARDIA, PAROXYSMAL 07/04/2005 PAST SURGICAL HISTORY Procedure Laterality Date APPENDECTOMY BACK SURGERY HX CHOLECYSTECTOMY Cholecystectomy COLONOSCOPY FLX DX W/COLLJ SPEC WHEN PFRMD 11/07/2005 Colonoscopy recheck 10 yrs COLONOSCOPY FLX DX W/COLLJ SPEC WHEN PFRMD 07/29/2017 Colonoscopy EGD 05/16/2020 ESOPHAGOGASTRODUODENOSCOPY TRANSORAL DIAGNOSTIC 03/23/2013 EGD EYE SURGERY HX FECAL OCCULT BLOOD TEST 12/14/2016 negative PAST SURGICAL HISTORY OF 03/2008 lumbar decompression, [facility] PAST SURGICAL HISTORY OF 09/2014 left cataract PAST SURGICAL HISTORY OF 2007 right cataract PAST SURGICAL HISTORY OF Left 09/02/2018 partial medial and lateral menisectomy, loose body removal. TONSILLECTOMY HX FAMILY HISTORY Problem Relation Age of Onset Coronary Artery Disease Father age 68; heavy EtOH use Alcohol/Drug Father a (more content not included)... [facility] 06-11-2022 History of Present illness Narrative Images from the original note were not included. NEUROSURGERY CONSULT NOTE Stephanie Simpson MD Chair, Clinical Neurosciences Director, Spinal Neurosurgery [facility] Date of visit: June 11, 2022 Patient Name: Mr.Donald Neema Espino Date of : 1945 Current Age: [age] year old Sex: male MRN/E# [id number] Last Office Visit: Visit date not found Chief Complaint: Patient presents with: New Patient Evaluation Past Medical/Surgical History: Essie Espino is a 76 year old male who is referred by Dr. Margot Bravo with Neurology for neurosurgical evaluation of the lumbar spine. The patient has a history of arthritis, Vitamin B12 deficiency, CAD, esophageal stenosis, HLD, Obesity (39.00), Neuropathy, CKD, DM2(HgbA1c 6.3% 01/01/2022) . He has a prior history of low back surgery. +ASA Smoking: Former Alcohol Use: occasional HISTORY OF PRESENT ILLNESS : The patient presents to the office today as a new patient with MRI and x-ray imaging of the lumbar spine. He states that he underwent a lumbar surgery in [address] To for low back pain and leg pain as a result of a fall from a ladder. He did very well post operatively. He reports that he had onset of balance/gait issues with left PSIS region pain approximately 2 years ago that acutely worsened over the past 3 months. He does report bilateral LE weakness and his legs feeling fatigued with standing/walking for any length of time. This improves almost immediately with sitting. He reports having the urge for both bowel/urinary, however has had several episodes of incontinence because he has been unable to make it to the restroom in time. He denies any radicular leg symptoms. He denies any neck pain or hand difficulties. Overall his balance/gait issues and being unable to ambulate are most concerning to him. He is here for image review, evaluation and plan of care. Symptoms: balance/gait issues, left PSIS region pain, bilateral LE weakness PREVIOUS CONSERVATIVE TREATMENTS: Gabapentin Diclofenac Oral PREVIOUS SURGERY: Low back surgery in [address] To in [place] PAIN EVALUATION 06/04/2022 1002 Pain Level: 5 Pain Location: Back-Lower Description: Aching;Sharp;Tightness Duration Units: Months Frequency: Continuous Intervention/Comfort measure: Medication;Positioning Comments: Pain lessened with medication PAST MEDICAL HISTORY Diagnosis Date Advance directive discussed with patient 01/01/2022 Discussed 12/2021 Arthritis B12 deficiency 04/06/2015 Bilateral leg edema 06/28/2021 Coronary artery disease Diabetic eye exam (HCC) 11/01/2013 Last done:05/20/2018 Diverticulosis of large intestine without hemorrhage Elevated LFTs 12/11/2016 Elevated PSA 12/30/2018 Esophageal stenosis 08/20/2016 Essential hypertension, benign 01/25/2005 Ex-smoker 08/08/2016 US: 08/15/2016 no AAA Fatty liver 09/28/2008 CT showed diffuse fatty infiltration (incidental on CT chest) Mildly elevated LFT's since 01/26 GERD without esophagitis 06/27/2020 Internal hemorrhoids without mention of complication Leg pain, bilateral 12/28/2020 Living will on file 01/01/2022 DPA: Stacey () Medicare annual wellness visit, subsequent 12/18/2017 Medicare Part B: 06/20/2010 last done: 12/30/2018 Mixed hyperlipidemia 11/01/2013 Morbid obesity due to excess calories (HCC) 04/06/2015 Neuropathy 10/31/2013 Had low back surgery 2010 for disc herniation and has had numbness in his toes since then. Obesity, Class II, BMI 35-39.9 04/06/2015 Obstructive sleep apnea syndrome 04/06/2015 CPAP with good success Pain of both hip joints 02/06/2019 PMH - PAST MEDICAL HISTORY OF 02/27 release nerves in back Seborrheic keratoses, inflamed 08/10/2015 Left temporal and right check Stage 3a chronic kidney disease (HCC) 02/01/2022 Type 2 diabetes mellitus with diabetic polyneuropathy, without long-term current use of insulin (HCC) 12/12/2015 Urge incontinence 08/10/2015 VENTRICULAR TACHYCARDIA, PAROXYSMAL 07/04/2005 PAST SURGICAL HISTORY Procedure Laterality Date APPENDECTOMY BACK SURGERY HX CHOLECYSTECTOMY Cholecystectomy COLONOSCOPY FLX DX W/COLLJ SPEC WHEN PFRMD 11/07/2005 Colonoscopy recheck 10 yrs COLONOSCOPY FLX DX W/COLLJ SPEC WHEN PFRMD 07/29/2017 Colonoscopy EGD 05/16/2020 ESOPHAGOGASTRODUODENOSCOPY TRANSORAL DIAGNOSTIC 03/23/2013 EGD EYE SURGERY HX FECAL OCCULT BLOOD TEST 12/14/2016 negative PAST SURGICAL HISTORY OF 03/2008 lumbar decompression, [facility] PAST SURGICAL HISTORY OF 09/2014 left cataract PAST SURGICAL HISTORY OF 2007 right cataract PAST SURGICAL HISTORY OF Left 09/02/2018 partial medial and lateral menisectomy, loose body removal. TONSILLECTOMY HX FAMILY HISTORY Problem Relation Age of Onset Coronary Artery Disease Father age 68; heavy EtOH use Alcohol/Drug Father alcoholism Diabetes Paternal Grandmother Prostate Cancer Other none Colon Cancer Other none known Dementia Paternal Uncle identicle twin to pt's father ALLERGIES Allergen Reactions Chlorhexidine Gluco* Shortness of Breath Lisinopril Cough Penicillins Intolerance thinks he has had PCN without complication Current Outpatient Medications Medication Sig Dispense Refill CPAP/BIPAP/OTHER New set up: Settings 7 - 20 cm H2O, suitable mask per pt preference (nasal mask), chin strap, head gear, humidity, tubing, lifetime supplies. G47.33 FUAD 1 Each 0 gabapentin (NEURONTIN) 100 mg capsule Take 2 capsules by mouth three times daily for 90 days. Along with your 800 mg three times a day for a total of 1000 mg three times a day. 540 capsule 0 omeprazole (PRILOSEC) 40 mg capsule Take 1 capsule by mouth once daily. 90 capsule 1 metFORMIN (GLUCOPHAGE) 1,000 mg tablet Take 1 tablet by mouth twice daily with meals. 180 tablet 1 hydroCHLOROthiazide (HYDRODIURIL, ESIDRIX) 12.5 mg tablet Take 1 tablet by mouth once daily. 90 tablet 1 gabapentin (NEURONTIN) 400 mg capsule Take 2 capsules by mouth three times daily for 180 days. 540 capsule 1 diclofenac, EC, (VOLTAREN) 75 mg EC tablet Take 1 tablet by mouth twice daily. For pain/inflammation. Take with food. 180 tablet 1 simvastatin (ZOCOR) 10 mg tablet Take 1 tablet by mouth daily at bedtime. 90 tablet 1 losartan (COZAAR) 50 mg tablet Take 1 tablet by mouth once daily. 90 tablet 1 oxybutynin ER (DITROPAN XL) 10 mg 24 hr tablet Take 1 tablet by mouth once daily. For overactive bladder 90 tablet 1 cyanocobalamin (VITAMIN B-12) 1,000 mcg tab Take 1 tablet by mouth once daily. 0 CPAP Use 10 cm in the nose daily at bedtime. 0 ASPIRIN 81 MG TAB Take 81 mg by mouth once daily. 0 0 No current facility-administered medications for this visit. REVIEW OF SYSTEMS Review of Systems Constitutional: Negative for chills, diaphoresis and fever. HENT: Negative for congestion, sinus pressure and trouble swallowing. Eyes: Negative for pain, discharge and visual disturbance. Respiratory: Negative for cough, shortness of breath and wheezing. Cardiovascular: Negative for chest pain, palpitations and leg swelling. Gastrointestinal: Negative for constipation, diarrhea, nausea and vomiting. Endocrine: Negative for cold intolerance and heat intolerance. Genitourinary: Positive for urgency. Negative for difficulty urinating and frequency. Musculoskeletal: Positive for back pain and gait problem. Negative for neck pain. Skin: Negative for rash and wound. Allergic/Immunologic: Negative for environmental allergies and food allergies. Neurological: Positive for weakness and numbness. Negative for dizziness. Hematological: Does not bruise/bleed easily. Psychiatric/Behavioral: Negative for agitation. The patient is not nervous/anxious. OBJECTIVE: BP 126/76 Pulse 75 Ht 5' 5.5 (1.66m) Wt 230 lb (104.3kg) SpO2 94% BMI 37.68 kg/(m^2). PHYSICAL EXAM: Mental State : Alert, memory function unremarkable. Attention span and concentration normal for patient's age. Speech normal, no receptive or expressive speech deficit. Recent and remote memory normal. Orientation : Oriented to person, place and time. Higher Cortical Function : Intact speech and language. Spontaneous speech and comprehension normal. Fund of knowledge intact for pt level of education. Motor: Normal muscle tone and bulk. No tremor or uncontrollable movements. No spasticity or tremor. Cerebellar Function : Normal finger to nose. Normal rapid alternating movements. No ataxia. Negative Romberg. Gait and Station: Patient ambulates with a wide-based shuffling gait. Pulmonary: Lungs without cough, audible wheeze. Respirations unlabored. Cardiac: Regular rate and rhythm. No murmer, gallop or rub. STRENGTH: Upper Extremity Strength Exam Right Left Elbow Flexion 5/5 5/5 Elbow Extension 5/5 5/5 Finger Flexion 5/5 5/5 Finger Extension 5/5 5/5 Finger Abduction 5/5 5/5 Lower Extremity Strength Exam Right Left Hip Flexion 5/5 5/5 Knee Flexion 5/5 5/5 Knee Extension 5/5 5/5 Dorsiflexion 5/5 5/5 Plantarflexion 5/5 5/5 Pathologic Reflexes Right Left Perla's Negative Negative Clonus Negative Negative He is globally hyporeflexic Data Review IMAGING STUDIES: In clinic today I did review her lumbar MRI as well as x-rays. On lumbar MRI imaging there is slight loss of normal lumbar lordosis. Evidence of multilevel degeneration throughout. Evidence of a prior laminectomy at L4-5 I believe. The most significant finding is that of moderate to severe central canal and lateral recess stenosis at the L3-4 level owing to a combination of a broad-based disc bulge along with facet hypertrophy at those levels. On flexion-extension films multilevel degeneration is again noted. Good alignment. No evidence of subluxation. Assessment & Plan: In summary this gentleman presents with approximately 1 year history of difficulties with gait and weakness in his legs as well as some nonspecific pain through the lower back and legs. Walking has become increasingly more difficult. Symptoms have worsened over the last few months. Reviewing his imaging he does have evidence of severe spinal stenosis at L3-4. I suspect that is contributing here. I am recommending an L3-4 laminectomy for symptomatic relief. In clinic today we discussed the risks and benefits of that procedure including the risk of infection, bleeding, injury to 1 or more nerve roots resulting in partial or complete motor or sensory loss, bowel bladder issues, need for further surgery, CSF leak. No guarantees were promised or implied. Patient appears to have a reasonable understanding of the situation. He is agreeable to undertaking our prehab program as well to help in his recovery. We will work towards obtaining medical clearance in the meantime. Consent was signed in the office. The following portions of the patient's history were reviewed, confirmed, and updated as necessary: allergies, current medications, past family history, past medical history, past social history, past surgical history, problem list, HPI, and ROS obtained by others. Some elements may be copied from a previous office note and have been reviewed/updated where appropriate. All portions reflect current medical decision making from today. The clinical and radiographic findings as well as the risks, benefits and alternatives of treatment have been reviewed in detail with the patient. Advised to call the office if symptoms worsen or new symptoms develop. Patient expressed understanding and is in agreement with plan. Stephanie Simpson MD Chair, Clinical Neurosciences Director, Spinal Neurosurgery [facility] This note was partially generated using [employer] voice recognition system, and there may be some incorrect words, spellings, and punctuation that were not noted in checking the note before saving. documented in this encounter [facility] 06-01-2022 Note HNO ID: [id number] Author: Casey Zamarripa, PhD Service: ? Author Type: Psychologist Type: Progress Notes Filed: 06/01/2022 4:47 PM Note Text: [facility]al [facility] Neuropsychology Consultation Name: Essie Espino Date of : 1945 Age: 76 Date of Evaluation: 06/01/2022 Mr. Espino was seen today for a clinical interview and neuropsychological testing. He was accompanied by his . Return appointment to discuss the results of the evaluation currently scheduled for 06/15/2022 at 4:00 pm. Full report to follow. Casey Zamarripa, PhD Clinical Neuropsychologist Services associated with this encounter: [id number] x 60 minutes [id number] x 30 minutes [id number] x 120 minutes [facility] 06-01-2022 History of Present illness Narrative [facility] Psychiat[facility] Behavioral Sciences Neuropsychology Consultation Name: Essie Espino Date of : 1945 Age: 76 Date of Evaluation: 06/01/2022 Mr. Espino was seen today for a clinical interview and neuropsychological testing. He was accompanied by his . Return appointment to discuss the results of the evaluation currently scheduled for 06/15/2022 at 4:00 pm. Full report to follow. Casey Zamarripa, PhD Clinical Neuropsychologist Services associated with this encounter: [id number] x 60 minutes [id number] x 30 minutes [id number] x 120 minutes documented in this encounter [facility] 05-18-2022 Miscellaneous Notes Faxed new PAP machine order, office visit notes to: DME name: [facility] [address] [place] [address] P: [phone] F: [phone] Fax confirmation received electronically. Patient notified via [employer] message ----- Message from Mary Do APRN.BAG PRESSER sent at 05/17/2022 3:43 PM EST ----- Hi, Can CPAP order and my note be faxed to [facility]? Patient is est with them will only need those 2 things. Thank you, Mary documented in this encounter [facility] 05-17-2022 Note [facility] 05-17-2022 History of Present illness Narrative Images from the original note were not included. [facility] New Patient Virtual Evaluation PATIENT NAME: Essie Espino DATE OF SERVICE: May 17, 2022 CONSULTING PROVIDER: Yosef Whitaker [address] [facility] [place] [address] REASON FOR CONSULT: Yosef Whitaker sends the patient for an opinion about FUAD on CPAP. My findings and recommendations will be transmitted electronically via shared medical record to the consulting provider. HPI: Essie Espino is a 76 year old male who presents to sleep medicine today in need of a replacement machine. His current machine is greater than 5 years old and is now broken. SLEEP APNEA Sleep apnea type : FUAD, Most Recent Apnea-Hypopnea Index (AHI): NOF Treatment : PAP therapy DME: [facility] PAP History: Uses CPAP for 9-10 hours per night, 7 nights per week. Current PAP settin cm H2O. Difficulties with CPAP: Yes: see HPI Objective PAP compliance data: not available Mask type: nasal mask Mask issues: NA Uses chin strap: No Uses ramp function: Yes Uses humidity: Yes There is a perceived benefit by the patient SLEEP-WAKE SCHEDULE Bedtime: 10 PM. He does not have a hard time falling asleep. Latency: instant Wake time: 730 AM, without an alarm. Nocturnal wakings: 2-3 times for BRB On weekends, he maintains the same sleep schedule. Average total sleep time (in a 24 hour period): 9-10 hours. He does not take naps. But may doze off in the evening in recliner for a few minutes. SLEEP-RELATED DETAILS Preferred sleep position: back Breathing disturbances and other behaviors during sleep: snoring. WAKE-RELATED DETAILS He does not work. In [facility]. 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 He does have difficulty with memory or concentration. He denies falling asleep or dozing off when driving. He does drink 1 caffeinated beverages per day. SLEEP DISORDER SYMPTOMS He does not report having an urge to move the legs in the evening (when resting) that is accompanied or caused by uncomfortable and/or unpleasant sensations in the legs. He has not been told that he has leg kicking during sleep. He denies any history of parasomnias. SLEEP FUNCTIONAL OUTCOME MEASURES Reviewed and uploaded. PAST TREATMENTS: CPAP PRIOR SLEEP STUDIES: PAP titration scanned into epic PAST MEDICAL HISTORY Diagnosis Date Advance directive discussed with patient 01/01/2022 Discussed 12/2021 Arthritis B12 deficiency 04/06/2015 Bilateral leg edema 06/28/2021 Coronary artery disease Diabetic eye exam (HCC) 11/01/2013 Last done:05/20/2018 Diverticulosis of large intestine without hemorrhage Elevated LFTs 12/11/2016 Elevated PSA 12/30/2018 Esophageal stenosis 08/20/2016 Essential hypertension, benign 01/25/2005 Ex-smoker 08/08/2016 US: 08/15/2016 no AAA Fatty liver 09/28/2008 CT showed diffuse fatty infiltration (incidental on CT chest) Mildly elevated LFT's since 01/26 GERD without esophagitis 06/27/2020 Internal hemorrhoids without mention of complication Leg pain, bilateral 12/28/2020 Living will on file 01/01/2022 DPA: Stacey () Medicare annual wellness visit, subsequent 12/18/2017 Medicare Part B: 06/20/2010 last done: 12/30/2018 Mixed hyperlipidemia 11/01/2013 Morbid obesity due to excess calories ([facility]) 04/06/2015 Neuropathy 10/31/2013 Had low back surgery 2010 for disc herniation and has had numbness in his toes since then. Obesity, Class II, BMI 35-39.9 04/06/2015 Obstructive sleep apnea syndrome 04/06/2015 CPAP with good success Pain of both hip joints 02/06/2019 PMH - PAST MEDICAL HISTORY OF 02/27 release nerves in back Seborrheic keratoses, inflamed 08/10/2015 Left temporal and right check Stage 3a chronic kidney disease (HCC) 02/01/2022 Type 2 diabetes mellitus with diabetic polyneuropathy, without long-term current use of insulin ([facility]) 12/12/2015 Urge incontinence 08/10/2015 VENTRICULAR TACHYCARDIA, PAROXYSMAL 07/04/2005 PAST SURGICAL HISTORY Procedure Laterality Date APPENDECTOMY BACK SURGERY HX CHOLECYSTECTOMY Cholecystectomy COLONOSCOPY FLX DX W/COLLJ SPEC WHEN PFRMD 11/07/2005 Colonoscopy recheck 10 yrs COLONOSCOPY FLX DX W/COLLJ SPEC WHEN PFRMD 07/29/2017 Colonoscopy EGD 05/16/2020 ESOPHAGOGASTRODUODENOSCOPY TRANSORAL DIAGNOSTIC 03/23/2013 EGD EYE SURGERY HX FECAL OCCULT BLOOD TEST 12/14/2016 negative PAST SURGICAL HISTORY OF 03/2008 lumbar decompression, [facility] PAST SURGICAL HISTORY OF 09/2014 left cataract PAST SURGICAL HISTORY OF 2007 right cataract PAST SURGICAL HISTORY OF Left 09/02/2018 partial medial and lateral menisectomy, loose body removal. TONSILLECTOMY HX ACTIVE PROBLEM LIST Essential Hypertension, Benign Fatty Liver Neuropathy Diabetic Eye Exam (Hcc) Mixed Hyperlipidemia Diverticulosis of Large Intestine Without Hemorrhage Internal Hemorrhoids Without Mention of Complication Colon Cancer Screening Obstructive Sleep Apnea Syndrome Obesity, Class II, BMI 35-39.9 B12 Deficiency Urge Incontinence Prostate Disorder Seborrheic Keratoses, Inflamed Type 2 Diabetes Mellitus With Diabetic Polyneuropathy, Without Long-Term Current Use of Insulin (Hcc) Ex-Smoker Esophageal Stenosis Elevated Lfts Medicare Annual Wellness Visit, Subsequent Chronic Pain of Left Knee Elevated Psa Chronic Pain of Right Knee Pain of Both Hip Joints Coronary Artery Disease Gerd Without Esophagitis Medication Management Leg Pain, Bilateral Left Ankle Pain Bilateral Leg Edema Living Will On File Advance Directive Discussed With Patient Memory Difficulties Ataxia Shuffling Gait Stage 3a Chronic Kidney Disease (Hcc) Allergies As of Date: 05/17/2022 Allergen Noted Reaction CHLORHEXIDINE GLUCONATE (BULK) 06/19/2016 Shortness of Breath LISINOPRIL 07/04/2005 Cough PENICILLINS 09/24/2005 Intolerance Fully Assessed 05/17/2022 CURRENT MEDICATIONS: CPAP/BIPAP/OTHER New set up: Settings 7 - 20 cm H2O, suitable mask per pt preference (nasal mask), chin strap, head gear, humidity, tubing, lifetime supplies. G47.33 FUAD gabapentin (NEURONTIN) 100 mg capsule Take 2 capsules by mouth three times daily for 90 days. Along with your 800 mg three times a day for a total of 1000 mg three times a day. omeprazole (PRILOSEC) 40 mg capsule Take 1 capsule by mouth once daily. metFORMIN (GLUCOPHAGE) 1,000 mg tablet Take 1 tablet by mouth twice daily with meals. hydroCHLOROthiazide (HYDRODIURIL, ESIDRIX) 12.5 mg tablet Take 1 tablet by mouth once daily. gabapentin (NEURONTIN) 400 mg capsule Take 2 capsules by mouth three times daily for 180 days. diclofenac, EC, (VOLTAREN) 75 mg EC tablet Take 1 tablet by mouth twice daily. For pain/inflammation. Take with food. simvastatin (ZOCOR) 10 mg tablet Take 1 tablet by mouth daily at bedtime. losartan (COZAAR) 50 mg tablet Take 1 tablet by mouth once daily. oxybutynin ER (DITROPAN XL) 10 mg 24 hr tablet Take 1 tablet by mouth once daily. For overactive bladder cyanocobalamin (VITAMIN B-12) 1,000 mcg tab Take 1 tablet by mouth once daily. CPAP Use 10 cm in the nose daily at bedtime. ASPIRIN 81 MG TAB Take one(1) tablet daily. REVIEW OF SYSTEMS SLEEP RELATED ROS GENERAL: See HPI HEENT: negative nasal congestion RESPIRATORY: negative dyspnea on exertion CARDIOVASCULAR: negative chest pain MUSCULOSKELETAL: positive back pain SKIN: negative mask irritation PSYCH: negative depression and suicidal thoughts NEURO: positive memory problems All other systems reviewed and are negative. SOCIAL HISTORY Social History Tobacco Use Smoking status: Former Packs/day: 1.00 Years: 20.00 Pack years: 20.00 Types: Cigarettes Quit date: 04/22/1989 Years since quittin.0 Smokeless tobacco: Never Substance Use Topics Alcohol use: Yes Comment: OCCASIONAL Drug use: No FAMILY HISTORY FAMILY HISTORY Problem Relation Age of Onset Coronary Artery Disease Father age 68; heavy EtOH use Alcohol/Drug Father alcoholism Diabetes Paternal Grandmother Prostate Cancer Other none Colon Cancer Other none known Dementia Paternal Uncle identicle twin to pt's father PHYSICAL EXAMINATION: General appearance: awake alert in NAD Mental status: normal Constitutional: Normal IMPRESSION/PLAN: G47.33 Obstructive sleep apnea syndrome (primary encounter diagnosis) Essie Espino is a 76 year old male who presents to sleep medicine today in need of a replacement machine. His current machine is greater than 5 years old and is now broken. [facility] [place] and been obtaining monthly supplies. Will set him up with Auto[employer] to forgo need to return to lab for PAP titration. - Will start Auto CPAP 7-20 cmH2O with a Nasal mask. - I will have a prescription sent to a [employer] [facility] - [facility] who will be calling you in the next 1-2 weeks or so. Please call them directly or us if you do not hear from them in this time frame. - You should be eligible for new supplies approximately every 3-6 months, depending on your insurance coverage. - If your mask doesn't fit well, call the [employer] company before 30 days are up to get a new mask without an additional charge. - Insurance requires regular usage and periodic office follow ups for PAP therapy, to continue to cover supplies. INSURANCE REQUIREMENTS: - Your insurance requires a [id number] follow up visit within a 31-90 day period after starting CPAP. - Your insurance requires compliance with CPAP, which is at least 4 hours per night for 70% of the time. This must be done over a 30 day period and must occur within the initial 31-90 day period after starting CPAP. - Your insurance also requires at least yearly follow ups to continue to pay for CPAP supplies. Follow up in 3 month(s). Mary Do APRN.EUGENIO I spent a total of 50 minutes on the date of the service which included preparing to see the patient, [id number] patient care, completing clinical documentation, obtaining and/or reviewing separately obtained history, counseling and educating the patient/family/caregiver, ordering medications, tests, or procedures, and communicating results to the patient/family/caregiver. documented in this encounter [facility] 05-17-2022 Miscellaneous Notes Images from the original note were not included. documented in this encounter [facility] 05-07-2022 Miscellaneous Notes Spoke with patient's , gave results of MRI Brain and L-spine, placed referral to NSGY and gave phone number. Also gave number to [facility] psych department - they had called [facility] to make neuropsych appointment there and were unable to schedule, hopefully have more luck with [facility] main number. documented in this encounter [facility] 05-02-2022 Note [facility] 01-11-2023 History of Present illness Narrative Radiology Service Progress Note PATIENT NAME: Essie Espino DATE OF SERVICE: May 02, 2022 TIME: 10:06 AM PATIENT IDENTITY VERIFICATION COMPLETED USING TWO (2) IDENTIFIERS: Name and Date of confirmed by patient verbally. FALL SCREENING: Has the patient had 2 falls in the last year or 1 fall with injury or currently using an Ambulatory Assistive Device (Walker, Cane, Wheelchair, Crutches, etc.)? No PATIENT GENDER DATA: Male PATIENT RELEVANT IMPLANT DATA REVIEWED: Yes RADIOLOGY DEPARTMENT: MR; Exam(s) Completed: Head: Routine Brain Spine: Lumbar spine PERIPHERAL IV DATA: Not applicable SIGNED BY: RT Madeline(R) May 02, 2022 10:06 AM documented in this encounter [facility] 04-24-2022 Miscellaneous Notes Patient last visit with PCP 01/01/22 Follow up appointment scheduled 07/04/2022 Rita Lai Ma documented in this encounter [facility] 04-24-2022 Miscellaneous Notes Patient has been identified by name and date of : Yes Patient phones for refill(s): Requested Prescriptions Pending Prescriptions Disp Refills omeprazole (PRILOSEC) 40 mg capsule 90 capsule 1 Sig: Take 1 capsule by mouth once daily. metFORMIN (GLUCOPHAGE) 1,000 mg tablet 180 tablet 1 Sig: Take 1 tablet by mouth twice daily with meals. hydroCHLOROthiazide (HYDRODIURIL, ESIDRIX) 12.5 mg tablet 90 tablet 1 Sig: Take 1 tablet by mouth once daily. gabapentin (NEURONTIN) 400 mg capsule 540 capsule 1 Sig: Take 2 capsules by mouth three times daily for 180 days. diclofenac, EC, (VOLTAREN) 75 mg EC tablet 180 tablet 1 Sig: Take 1 tablet by mouth twice daily. For pain/inflammation. Take with food. Date of last office visit in primary care: 01/01/22 Please advise. Thank you. Ольга Momin LPN documented in this encounter [facility] 03-28-2022 Note [facility] 03-28-2022 Instructions Margot Bravo MD - 03/28/2022 3:16 PM EST Lets do an MRI Brain / Lumbar spine and neuropsych testing. documented in this encounter [facility] 03-28-2022 History of Present illness Narrative NEW PATIENT EVALUATION Subjective HPI Essie Espino is a 76 year old male who presents for evaluation of multiple symptoms. Dr. Yosef Whitaker MD is the PCP and referring physician. He is unsteady when he walks. He has to walk slowly. He shuffles when he walks. He has neuropathy. He wonders if he has arthritis in hips because of pain if he stands or walks for any period of time. He has incontinence. He has a hard time realizing when he has to urinate, might go to the bathroom and nothing comes out, other times will have leakage or accidents. This is more with bladder but also could be bowel. He takes Tylenol, Voltaren, and gabapentin for pain. Sense of smell is OK. Can have mild constipation or diarrhea. No dream enactment behavior. Rarely wakes up at night and thinks someone is there. Forgets words occasionally while speaking, or names. He doesn't drive much, his thinks he drives too fast and she says he goes left of center. Handwriting is fine. Medications: Current Outpatient Medications Medication Sig Dispense Refill gabapentin (NEURONTIN) 100 mg capsule Take 2 capsules by mouth three times daily for 90 days. Along with your 800 mg three times a day for a total of 1000 mg three times a day. 540 capsule 0 simvastatin (ZOCOR) 10 mg tablet Take 1 tablet by mouth daily at bedtime. 90 tablet 1 losartan (COZAAR) 50 mg tablet Take 1 tablet by mouth once daily. 90 tablet 1 gabapentin (NEURONTIN) 400 mg capsule Take 2 capsules by mouth three times daily for 180 days. 540 capsule 1 diclofenac, EC, (VOLTAREN) 75 mg EC tablet Take 1 tablet by mouth twice daily. For pain/inflammation. Take with food. 180 tablet 1 oxybutynin ER (DITROPAN XL) 10 mg 24 hr tablet Take 1 tablet by mouth once daily. For overactive bladder 90 tablet 1 omeprazole (PRILOSEC) 40 mg capsule Take 1 capsule by mouth once daily. 90 capsule 1 metFORMIN (GLUCOPHAGE) 1,000 mg tablet Take 1 tablet by mouth twice daily with meals. 180 tablet 1 hydroCHLOROthiazide (HYDRODIURIL, ESIDRIX) 12.5 mg tablet Take 1 tablet by mouth once daily. 90 tablet 1 cyanocobalamin (VITAMIN B-12) 1,000 mcg tab Take 1 tablet by mouth once daily. 0 CPAP Use 10 cm in the nose daily at bedtime. 0 ASPIRIN 81 MG TAB Take one(1) tablet daily. 0 0 No current facility-administered medications for this visit. ROS ROS: His ROS was positive for that mentioned in the HPI. Otherwise a 10-point ROS was completed and was negative. ALLERGIES Allergen Reactions Chlorhexidine Gluco* Shortness of Breath Lisinopril Cough Penicillins Intolerance thinks he has had PCN without complication Past Medical History: PAST MEDICAL HISTORY Diagnosis Date Advance directive discussed with patient 01/01/2022 Discussed 12/2021 Arthritis B12 deficiency 04/06/2015 Bilateral leg edema 06/28/2021 Coronary artery disease Diabetic eye exam (HCC) 11/01/2013 Last done:05/20/2018 Diverticulosis of large intestine without hemorrhage Elevated LFTs 12/11/2016 Elevated PSA 12/30/2018 Esophageal stenosis 08/20/2016 Essential hypertension, benign 01/25/2005 Ex-smoker 08/08/2016 US: 08/15/2016 no AAA Fatty liver 09/28/2008 CT showed diffuse fatty infiltration (incidental on CT chest) Mildly elevated LFT's since 01/26 GERD without esophagitis 06/27/2020 Internal hemorrhoids without mention of complication Leg pain, bilateral 12/28/2020 Living will on file 01/01/2022 DPA: Stacey () Medicare annual wellness visit, subsequent 12/18/2017 Medicare Part B: 06/20/2010 last done: 12/30/2018 Mixed hyperlipidemia 11/01/2013 Morbid obesity due to excess calories (HCC) 04/06/2015 Neuropathy 10/31/2013 Had low back surgery 2010 for disc herniation and has had numbness in his toes since then. Obesity, Class II, BMI 35-39.9 04/06/2015 Obstructive sleep apnea syndrome 04/06/2015 CPAP with good success Pain of both hip joints 02/06/2019 PMH - PAST MEDICAL HISTORY OF 02/27 release nerves in back Seborrheic keratoses, inflamed 08/10/2015 Left temporal and right check Stage 3a chronic kidney disease (HCC) 02/01/2022 Type 2 diabetes mellitus with diabetic polyneuropathy, without long-term current use of insulin ([facility]) 12/12/2015 Urge incontinence 08/10/2015 VENTRICULAR TACHYCARDIA, PAROXYSMAL 07/04/2005 Family History: FAMILY HISTORY Problem Relation Age of Onset Coronary Artery Disease Father age 68; heavy EtOH use Alcohol/Drug Father alcoholism Diabetes Paternal Grandmother Prostate Cancer Other none Colon Cancer Other none known Dementia Paternal Uncle identicle twin to pt's father Social History: Social History Tobacco Use Smoking status: Former Packs/day: 1.00 Years: 20.00 Pack years: 20.00 Types: Cigarettes Quit date: 04/22/1989 Years since quittin.9 Smokeless tobacco: Never Substance Use Topics Alcohol use: Yes Comment: OCCASIONAL Drug use: No 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 Head: Normocephalic Neck: Supple Heart: RRR Peripheral Pulses: Normal Neurologic Examination Mental Status: He is alert. He is fully oriented. Attention is intact. Delayed recall impaired. Language shows normal comprehension and fluency. Praxis is normal. Affect is appropriate. Reg 3/3, BGL, 03/28/22, wed, 76 yo, WORLD ->DLROW, months backwards intact, language intact, DR 1/3 -> 1/ -> 0/1 Cranial Nerves: Pupils are equal and reactive to light. Extraocular movements show full and smooth pursuits. No nystagmus. Visual jimenez are full to confrontation. Facial sensation is intact. Facial activation is symmetric. Hearing is intact to conversation. There is no hypomimia. There is no hypophonia. There is no dysarthria. Tongue is midline. Palate elevates symmetrically. Shoulder shrug is normal. Motor: Muscle bulk is normal. No tremor or rigidity. Mild slowing of movements. Muscle power is full. Sensory: Vibration reduced feet Reflex: Biceps and brachioradialis is 2+ bilaterally. Patellar reflex 2+ bilaterally. Ankle jerks 2+ right absent left. Coordination: Finger to nose is smooth without ataxia. Gait/station: Mildly stooped, mildly wider base, decreased foot clearance mild DATA REVIEWED Actual films/image/tracing reviewed and summarized as follows: CTH 01/22/22 mild ventriculomegaly and atrophy Old records reviewed and summarized as follows: B12 1236, folate 9, A1c 6.3, TSH 1.23, Syph neg, Cr 1.27 EMG 12/17/13 LLE comparison right - 1) Normal bilateral sural and superficial sensory responses; normal, symmetric H-reflexes. 2) Absence of left medial plantar response is within acceptable limits of normal for age or it may be technical finding. 3) Normal peroneal and tibial motor latencies, but decreased motor amplitudes on the left. The left tibial AH at the popliteal fossa response may be technical. The needle electrode examination was discontinued due to poor test tolerance/pain. No definitive evidence for a large fiber sensorimotor peripheral neuropathy, but these findings are insufficient for electrical diagnosis. Assessment/Plan Assessment & Plan: Essie Espino is a 76 year old male who presents for evaluation of memory impairment, gait impairment, and urinary difficulty. His examination demonstrates impaired recall and multifactorial gait impairment. He has a history of lumbar spine disease / surgery, recommend getting MRI L-spine. Prior EMG for leg symptoms was negative, may be more central cause to his leg symptoms. Combination of urinary, gait, and memory symptoms with mild ventriculomegaly on CTH will get MRI Brain to evaluate for NPH / other source of gait impairment. Recommend neuropsych testing for further evaluation of memory impairment. He should return to see me in 4 months. Margot Bravo MD [facility] Neurology documented in this encounter [facility] 03-13-2022 Miscellaneous Notes 1st attempt to reach patient. LM for patient to call and schedule consult to Sleep Medicine. Spoke with patient and he was initially not wanting to do the sleep test. Patient indicated that he has been 10 on his machine for all this time. Explained to patient that in his original sleep study it referenced a follow up which patient does not recall that taking place. I explained to patient that insurance may review this old sleep study and not cover your new CPAP machine. He did indicated that this is 2 or 3 machine and never had an issues obtaining before. He will still complete the sleep study. Amy Bueno MA Please assist patient with scheduling. Amy Bueno MA Let patient know his last sleep study was almost 17 yrs ago. Will need to see sleep med as previously stated. Order placed please help set up appt. Contacted patient and he indicated that he has been on a CPAP machine for quite some time. He had the test completed at the hospital. Found documentation and given to PCP for review. Amy Bueno MA Let patient know we have no documentation of a sleep study or titration study and we will need this for a new order. Consult placed to see sleep med. documented in this encounter [facility] 03-12-2022 Miscellaneous Notes The following approved medication requests have been transmitted electronically. Requested Prescriptions Signed Prescriptions Disp Refills gabapentin (NEURONTIN) 100 mg capsule 540 capsule 0 Sig: Take 2 capsules by mouth three times daily for 90 days. Along with your 800 mg three times a day for a total of 1000 mg three times a day. Authorizing Provider: YOSEF WHITAKER MD Last refill 11/29/21 Qty: 540 with 0 refills LORENZA 01/01/22 NOV 07/04/22 Jaylan Chino LPN documented in this encounter [facility] 02-01-2022 Miscellaneous Notes Patient's , Stacey, notified. Verbalized understanding. Let patient know his PSA was back to normal. Iron studies, folate and B12 were all ok. CBC showed Hemoglobin is improved. Electrolyte panel showed kidney functions slightly improved but still showing impairment and appears dihydrated. Again encourage trying to get 6-8 eight Oz glasses of water a day. documented in this encounter [facility] 01-22-2022 Miscellaneous Notes Pt notified of results via [employer]. Lucy Townsend Ma Let patient know CT of head showed no acute issues. Just normal age related changes. documented in this encounter [facility] 01-03-2022 Miscellaneous Notes Left message of same on pt's identified vm. Jaylan Chino LPN Let patient know that his urine results came back normal. documented in this encounter [facility] 01-02-2022 Miscellaneous Notes returned call and given provider's message below with verbalized understanding. Called and left message on patients voicemail to return call to the office and ask to speak with a triage nurse. Noemi Xiao Ma Let patient know Mg, A1c, B12, electrolytes, liver functions, folate and thyroid lab were all ok. Test for syphilis was negative. Kidney functions showed slight decrease but also appeared dehydrated. Order to repeat in a month and advise on increased water intake. Prostate lab slightly elevated. May of been due to me just checking his prostate. Will repeat in a month. Order placed. Lipid panel was ok except Trigs were elevated at 235 (goal<150 and he typically is below goal). Advise to try to reduce fat in diet. CBC showed slight anemia will repeat in a month with additional labs. Orders placed. documented in this encounter [facility] 01-02-2022 Miscellaneous Notes Orders placed. Lab calling stating they need a new order for a urinalysis and a urine creatinine Pended please sign Mary Yusuf Cma documented in this encounter [facility] 01-01-2022 History of Present illness Narrative Images from the original note were not included. Medicare Yearly Visit Medical B eligibilty date 06/20/2010 Date of last exam 12/28/2020 PAST MEDICAL HISTORY PAST MEDICAL HISTORY Diagnosis Date Apnea Coronary artery disease Diabetes (HCC) Diverticulosis of colon (without mention of hemorrhage) DM type 2 (diabetes mellitus, type 2) (HCC) 11/01/2013 Essential hypertension, benign 01/25/2005 FATTY LIVER DISEASE 09/28/2008 CT showed diffuse fatty infiltration (incidental on CT chest) Mildly elevated LFT's since 01/26 Hypercholesteremia Hyperlipidemia 11/01/2013 Internal hemorrhoids without mention of complication Neuropathy (HCC) 10/31/2013 Had low back surgery 2010 for disc herniation and has had numbness in his toes since then. PMH - PAST MEDICAL HISTORY OF 02/27 release nerves in back Snoring Unspecified sleep apnea 04/24/2005 CPAP with good success VENTRICULAR TACHYCARDIA, PAROXYSMAL 07/04/2005 PAST SURGICAL HISTORY PAST SURGICAL HISTORY Procedure Laterality Date COLONOSCOP W/ OR W/O [facility] SPEC 11/07/2005 Colonoscopy recheck 10 yrs COLONOSCOP W/ OR W/O [facility] 07/29/2017 Colonoscopy EGD W/O OR W/BRUSH/WASH 03/23/13 EGD FECAL OCCULT BLOOD TEST 12/14/2016 negative PAST SURGICAL HISTORY OF 03/29 lumbar decompression, [facility] PAST SURGICAL HISTORY OF 09/2014 left cataract PAST SURGICAL HISTORY OF 2007 right cataract REMOVAL GALLBLADDER Cholecystectomy Chlorhexidine Gluconate (Bulk); Lisinopril; Penicillins Medications reviewed: Yes FAMILY HISTORY FAMILY HISTORY Problem Relation Age of Onset Diabetes Paternal Grandmother Coronary Artery Disease Father age 68; heavy EtOH use Alcohol/Drug Father alcoholism Prostate Cancer Other none Colon Cancer Other none known SOCIAL HISTORY: SOCIAL HISTORY Social History Marital status: Spouse name: Stacey Years of education: Number of children: 4 Occupational History Occupation Employer Comment retired [employer] Social History Main Topics Smoking status: Former Smoker Packs/day: 1.00 Years: 20.00 Types: Cigarettes Quit date: 04/22/1989 Smokeless tobacco: Never Used Alcohol use: Yes Comment: OCCASIONAL Drug use: No Essie denies regular aerobic exercise but tries to walk on a tread mill. He watches his diet for sodium, low fat and low cholesterol very little of the time. List of current specialists [facility] End of Live Planning discussed including patients advanced directive wishes: Yes I am willing to follow Essie's advanced directives. Depression screen Depression Screening 12/18/2017 12/30/2018 08/28/202101/01/2022 PHQ-2 Score 2 0 0 0 Depression screening tool completed and reviewed. Based on score and interview, patient is not at risk for depression. Screening tool discussed with patient, and I recommended no further intervention at this time. Functional Ability/Safety Screen 1. Was the patient's timed Up and Go test unsteady or longer than 30 seconds? No 2. Does the patient need help with the phone, transportation, shopping,preparing meals, housework, laundry, medications or managing money? does most of the shopping and manages the finances. 3. Does your home have rugs in the hallway, lack of grab bars in the bathroom, lack of handrails on the stairs or have poor lighting? No Hearing Evaluation: hard of hearing and wears hearing aids PHYSICAL EXAM BP 116/74 (BP Site: Left Arm, BP Position: Sitting, BP Cuff Size: Large Adult) Pulse 80 Resp 16 Ht 166.4 cm (5' 5.5 ) Wt 104.3 kg (230 lb) BMI 37.69 kg/m Alert and oriented X 3: YES Body mass index is 37.69 kg/m . Seeing optho See below ASSESSMENT/PLAN: 76 year old male The following prevention plan was discussed during the office visit and provided to the patient: See below Chief Complaint Patient presents with: Medicare Wellness Exam HPI Essie Espino is a 76 year old male who presents here today for Medicare Annual Visit. Patient with Hx of DM type 2, B12 def, CAD, GERD, Hypertension, Hyperlipidemia, obesity, neuropathy along with those reviewed and addressed below and in ROS. notes shuffling of his feet and confusion. notes issues remembering things sometimes. Patient says he sleeps well but waking up tired. Wearing his CPAP. Patient has had some urinary accidents. has noted if out and this occurs patient does not seemed embarrassed by it. has witnessed some ataxia. Past medical history, appointments, medications, allergies reviewed. Previous Medical History PAST MEDICAL HISTORY Diagnosis Date Arthritis B12 deficiency 04/06/2015 Bilateral leg edema 06/28/2021 Coronary artery disease Diabetic eye exam (HCC) 11/01/2013 Last done:05/20/2018 Diverticulosis of large intestine without hemorrhage Elevated LFTs 12/11/2016 Elevated PSA 12/30/2018 Esophageal stenosis 08/20/2016 Essential hypertension, benign 01/25/2005 Ex-smoker 08/08/2016 US: 08/15/2016 no AAA Fatty liver 09/28/2008 CT showed diffuse fatty infiltration (incidental on CT chest) Mildly elevated LFT's since 01/26 GERD without esophagitis 06/27/2020 Internal hemorrhoids without mention of complication Leg pain, bilateral 12/28/2020 Medicare annual wellness visit, subsequent 12/18/2017 Medicare Part B: 06/20/2010 last done: 12/30/2018 Mixed hyperlipidemia 11/01/2013 Morbid obesity due to excess calories (HCC) 04/06/2015 Neuropathy 10/31/2013 Had low back surgery 2010 for disc herniation and has had numbness in his toes since then. Obesity, Class II, BMI 35-39.9 04/06/2015 Obstructive sleep apnea syndrome 04/06/2015 CPAP with good success Pain of both hip joints 02/06/2019 PMH - PAST MEDICAL HISTORY OF 02/27 release nerves in back Seborrheic keratoses, inflamed 08/10/2015 Left temporal and right check Type 2 diabetes mellitus with diabetic polyneuropathy, without long-term current use of insulin (HCC) 12/12/2015 Urge incontinence 08/10/2015 VENTRICULAR TACHYCARDIA, PAROXYSMAL 07/04/2005 Previous Surgical History PAST SURGICAL HISTORY Procedure Laterality Date APPENDECTOMY BACK SURGERY HX CHOLECYSTECTOMY Cholecystectomy COLONOSCOPY FLX DX W/COLLJ SPEC WHEN PFRMD 11/07/2005 Colonoscopy recheck 10 yrs COLONOSCOPY FLX DX W/COLLJ SPEC WHEN PFRMD 07/29/2017 Colonoscopy EGD 05/16/2020 ESOPHAGOGASTRODUODENOSCOPY TRANSORAL DIAGNOSTIC 03/23/2013 EGD EYE SURGERY HX FECAL OCCULT BLOOD TEST 12/14/2016 negative PAST SURGICAL HISTORY OF 03/2008 lumbar decompression, [facility] PAST SURGICAL HISTORY OF 09/2014 left cataract PAST SURGICAL HISTORY OF 2007 right cataract PAST SURGICAL HISTORY OF Left 09/02/2018 partial medial and lateral menisectomy, loose body removal. TONSILLECTOMY HX Family History FAMILY HISTORY Problem Relation Age of Onset Diabetes Paternal Grandmother Coronary Artery Disease Father age 68; heavy EtOH use Alcohol/Drug Father alcoholism Prostate Cancer Other none Colon Cancer Other none known Patient Allergies ALLERGIES Allergen Reactions Chlorhexidine Gluco* Shortness of Breath Lisinopril Cough Penicillins Intolerance thinks he has had PCN without complication Current Medications Current Outpatient Medications on File Prior to Visit Medication Sig gabapentin (NEURONTIN) 400 mg capsule Take 2 capsules by mouth three times daily for 180 days. diclofenac, EC, (VOLTAREN) 75 mg EC tablet Take 1 tablet by mouth twice daily. For pain/inflammation. Take with food. oxybutynin ER (DITROPAN XL) 10 mg 24 hr tablet Take 1 tablet by mouth once daily. For overactive bladder omeprazole (PRILOSEC) 40 mg capsule Take 1 capsule by mouth once daily. metFORMIN (GLUCOPHAGE) 1,000 mg tablet Take 1 tablet by mouth twice daily with meals. hydroCHLOROthiazide (HYDRODIURIL, ESIDRIX) 12.5 mg tablet Take 1 tablet by mouth once daily. gabapentin (NEURONTIN) 100 mg capsule Take 2 capsules by mouth three times daily for 90 days. Along with your 800 mg three times a day for a total of 1000 mg three times a day. losartan (COZAAR) 50 mg tablet Take 1 tablet by mouth once daily. cyanocobalamin (VITAMIN B-12) 1,000 mcg tab Take 1 tablet by mouth once daily. CPAP Use 10 cm in the nose daily at bedtime. ASPIRIN 81 MG TAB Take one(1) tablet daily. simvastatin (ZOCOR) 10 mg tablet Take 1 tablet by mouth daily at bedtime. No current facility-administered medications on file prior to visit. Social History Social History Tobacco Use Smoking status: Former Packs/day: 1.00 Years: 20.00 Pack years: 20.00 Types: Cigarettes Quit date: 04/22/1989 Years since quittin.7 Smokeless tobacco: Never Substance Use Topics Alcohol use: Yes Comment: OCCASIONAL Drug use: No Review of Symptoms REVIEW OF SYSTEMS GENERAL: No weight loss, malaise or fevers HEENT: getting a dull headache.No changes in hearing or vision, no nose bleeds or other nasal problems NECK: Negative for lumps, goiter, pain and significant neck swelling RESPIRATORY: Negative for cough, hemoptysis, wheezing, COPD, dyspnea or shortness of breath CARDIOVASCULAR: Negative for chest pain, increased leg swelling, hypertension, CHF or palpitations GI: No nausea, vomiting, or diarrhea, No heartburn or reflux symptoms, and no blood : No history of dysuria, blood. Has noted hesitance at times. See HPI MUSCULOSKELETAL: Negative for new or changes in his typical joint pain or swelling, back pain or muscle pain SKIN: Negative for lesions, rash, and itching PSYCH: Negative for sleep disturbance, mood disorder and recent psychosocial stressors HEMATOLOGY/LYMPHOLOGY: Negative for prolonged bleeding, bruising easily or swollen nodes ENDOCRINE: Negative for cold or heat intolerance, polyuria, polydipsia and goiter NEURO: No history of syncope, paralysis, seizures or tremors. Getting a dull headache. EXAM: BP 116/74 (BP Site: Left Arm, BP Position: Sitting, BP Cuff Size: Large Adult) Pulse 80 Resp 16 Ht 166.4 cm (5' 5.5 ) Wt 104.3 kg (230 lb) BMI 37.69 kg/m Last 5 Encounter Wt Readings: Date: Wt: 01/01/2022 104.3 kg (230 lb) 10/19/2021 103 kg (227 lb) 10/16/2021 104.8 kg (231 lb) 10/06/2021 104.8 kg (231 lb) 08/28/2021 106.1 kg (234 lb) General Appearance: Well appearing, alert, in no acute distress, well-hydrated, well nourished. and Obese. Skin: Skin color, texture, turgor normal, no suspicious rashes or lesions. Head: Normocephalic, no masses, lesions, tenderness or abnormalities. Eyes: Anicteric sclera. Pupils are equally round and reactive to light. Extraocular movements are intact. . Ears: External ears normal, canals clear. Neck: Supple, no adenopathy; thyroid symmetric, normal size, no bruits. Lungs: Lungs clear to auscultation. No wheezing, rhonchi, rales.. Heart: RRR without murmur, gallop, or rubs. No ectopy. Abdomen: Normal abdominal exam, Abdomen soft, non-tender. Bowel sounds normal. No masses, organomegaly. Extremities: No deformities, skin discoloration, clubbing or cyanosis. Good capillary refill. Has some cole congestion with prolonged sitting. Has mild pitting edema in the lower legs and ankles. Musculoskeletal: Spine range of motion normal. Muscular strength intact, No joint swelling, deformity, or tenderness. No lead piping or coag wheeling of the upper extremities. Peripheral Pulses: Normal. Neurologic: Gait is slightly slow/cautious. Reflexes normal and symmetric. Sensation to light touch and crainal nerves 2-12 intact.. Diabetic Foot Exam: Feet: Shoes and socks removed, no deformities, ulcers, calluses, normal distal pulses, non-sensitive to microfilament on the balls of the feet bilaterally., and vibratory exam within normal limits Skin: warm, dry, and no callouses or ulcer Vascular Pulses: Normal SEMMES-FRANCIS MONOFILAMENT TESTING Left Foot Right Foot Dorsal Surface Intact Dorsal Surface Intact Plantar Surface Absent 2/ 5sites Plantar Surface Absent 2/ 5 sites Health Maintenance List ADVANCE DIRECTIVE DISCUSSION Never done COVID-19 VACCINE(4 - Booster for Pfizer series) due on 06/19/2021 HBA1C due on 12/27/2021 URINE ALBUMIN:CREATININE RATIO due on 12/21/2021 INFLUENZA(1) due on 12/21/2021 DIABETIC FOOT EXAM due on 12/28/2021 DTAP,TDAP,TD(3 - Td or Tdap) due on 06/28/2022 DILATED RETINAL EXAM due on 06/02/2022 LDL CHOLESTEROL due on 06/26/2022 ANNUAL PCP TEAM CHRONIC DISEASE VISIT due on 10/06/2022 BP CONTROLLED (<130/80) due on 10/06/2022 HEPATITIS C SCREENING Completed SHINGRIX VACCINE Completed PNEUMOCOCCAL: 65+ Completed DEPRESSION SCREENING Discontinued Data reviewed MINI-MENTAL STATE EXAMINATION (MMSE) Make the patient comfortable and establish rapport. Ask questions in the order listed. Total possible score is 30. ORIENTATION 1. What is the (year) (season) (date) (day) (month)? Max score=5 Patient's score=5 2. Where are we? (state) (county) (town or city) (hospital) (floor)? Max score=5 Patient's score=5 REGISTRATION Ask the patient if you may test his/her memory. Then say the names of 3 unrelated objects, clearly and slowly, about one second for each (eg, apple, table, william). After you have said all 3, ask him/her to repeat them. This first repetition determines the score(0-3), but keep saying them until he/she can repeat all 3, up to 6 trials. Max score=3 Patient's score=3 ATTENTION AND CALCULATION Ask the patient to begin with 100 and count backwards by 7. Stop after 5 subtractions (93, 86, 79, 72, 65). Score the total number of correct answers. If the patient cannot or will not perform the serial 7s task, ask him/her to spell the word WORLD backwards. The score is the number of letters in the correct order (eg, DLROW=5; DLRW=4; DLORW, DLW=3; OW=2; DRLWO=1). Max score=5 Patient's score=5 RECALL Ask the patient to recall the 3 items repeated above (eg, apple, table, william). Max score=3 Patient's score=3 LANGUAGE Naming: Show the patient a wristwatch and ask him/her what it is. Repeat for pencil. Max score=2 Patient's score=2 Repetition: Ask the patient to repeat the phrase No ifs, ands, or buts: after you. Max score=1 Patient's score=1 3-Stage Command: Give the patient a piece of blank paper and ask him/her to take a piece of paper in your right hand, fold it in half, put it on the floor. Score 1 point for each part correctly executed. Max score=3 Patient's score=3 Reading: On a blank piece of paper, print the sentence CLOSE YOUR EYES in letters large enough for the patient to see clearly. Ask him/her to read it and do what it says. Score 1 point only if he/she actually closes his/her eyes. Max score=1 Patient's score=1 Writing: Give the patient a blank piece of paper and ask him/her to write a sentence. Do not dictate a sentence; it is to be written spontaneously. It must contain a subject and verb and be sensible. Correct grammar and punctuation are not necessary. Max score=1 Patient's score=1 Copying: Ask the patient to copy the figure of intersecting pentagons exactly as it is. All 10 angles must be present and 2 must intersect to form a 4-sided figure to score 1 point. Tremor and rotation are ignored. Max score=1 Patient's score=1 MAXIMUM TOTAL SCORE = 30 TOTAL SCORE = 30/30 Suggested guideline for determining the severity of cognitive impairment: Mild: MMSE>21 Moderate: MMSE 10-20 Severe: MMSE<9 Expected decline in MMSE scores in untreated mild to moderate Alzheimer's patient is 2 to 4 points per year. *Adapted from Folstein et al.1 and Meghna and Yasmine2. (c) 1974, 1997 [employer] Used with permission. References: 1. Stephenstein MF, Folstein SE, Glenna IA. Mini-Mental State: a practical method for grading the cognitive state of patients for the clinician. J Psychiatr Res. 1975; 12:189-198. 2. JR Meghna, Yasmine HURTADO, Mini-Mental State Examination (MMSE). Psychopharm Bull. 1988;24:689-692. 3. Vinny JT, Hillary FJ, Flavio RD, Tucker A, Rashi F. Neuropsychological function in Alzheimer's disease: pattern of impairment and rates of progression. Arch Neurol. 1988;45:263-268. 4. Merrill JA, Tyrone B, Juan A S-P, Lars FERRER. Predictors of cognitive and functional progression in patients with probable Alzheimer's disease. Neurology. 1992;42:7053-1198. A/P ASSESSMENT/PLAN: 1. Medicare annual wellness visit, subsequent - ICD9: V70.0, ICD10: Z00.00 (primary diagnosis) - Counseled on healthy diet and regular exercise - Patient was counseled [id number] by myself (the billing provider) for the following immunizations and vaccine components, including side effects: Pneumococcal PCV-20. Patient consents for immunization and understands risks and benefits. A VIS sheet on each immunization was given to the patient. - Follow up for annual exam in one year 2. Type 2 diabetes mellitus with diabetic polyneuropathy, without long-term current use of insulin (HCC) - ICD9: 250.60, 357.2, ICD10: E11.42 - will await labs to see if changes needed. - Continue current medications - Encouraged regular aerobic exercise and weight loss - BP goal of <130/80 - LDL goal of <100 3. Diabetic eye exam (HCC) - ICD9: V72.0, 250.00, ICD10: Z01.00, E11.9 - up to date. 4. Essential hypertension, benign - ICD9: 401.1, ICD10: I10 - good control - Continue current medication(s) - Recommended regular aerobic exercise. - Recommend home blood pressure monitoring, to bring results in on next visit - Goal of BP <130/80 - LOSARTAN 50 MG TABLET 5. Mixed hyperlipidemia - ICD9: 272.2, ICD10: E78.2 - to be determined upon return of lab results - Encouraged following a low fat, low cholesterol diet. - Discussed the benefits of regular aerobic exercise and weight loss. - Encouraged following a low carbohydrate, healthy oil intake diet. - Continue current therapy. 6. GERD without esophagitis - ICD9: 530.81, ICD10: K21.9 - Continue treatment with Prilosec 40 mg QD 7. Coronary artery disease due to lipid rich plaque - ICD9: 414.00, 414.3, ICD10: I25.10, I25.83 . Clinically stable no changes. 8. Bilateral leg edema - ICD9: 782.3, ICD10: R60.0 - positional related. Encouraged leg elevation 9. Obstructive sleep apnea syndrome - ICD9: 327.23, ICD10: G47.33 - wearing CPAP 10. Obesity, Class II, BMI 35-39.9 - ICD9: 278.00, ICD10: E66.9 Weight increasing - Behavioral intervention 11. Neuropathy - ICD9: 355.9, ICD10: G62.9 - stable and secondary to his past low back surgery 12. Fatty liver - ICD9: 571.8, ICD10: K76.0 - await labs 13. B12 deficiency - ICD9: 266.2, ICD10: E53.8 - await labs 14. Elevated PSA - ICD9: 790.93, ICD10: R97.20 - wait labs 15. Living will on file - ICD9: V49.89, ICD10: Z87.898 - updated 16. Advance directive discussed with patient - ICD9: V65.49, ICD10: Z71.89 - updated. 17. Memory difficulties - ICD9: 780.93, ICD10: R41.3 Check - TSH BLD - SYPHILIS TOTAL W/REFLEX - FOLATE SERUM - CT BRAIN WO IVCON 18. Ataxia - ICD9: 781.3, ICD10: R27.0 Check - TSH BLD - SYPHILIS TOTAL W/REFLEX - FOLATE SERUM - CT BRAIN WO IVCON 19. Urge incontinence - ICD9: 788.31, ICD10: N39.41 Check - CT BRAIN WO IVCON - cont ditropan 20. Shuffling gait - ICD9: 781.2, ICD10: R26.89 Check - CT BRAIN WO IVCON 21. Dementia without behavioral disturbance, unspecified dementia type (HCC) - ICD9: 294.20, ICD10: F03.90 Check - CT BRAIN WO IVCON If brain imaging normal will consult neuro for the shuffling gait and memory issues. Will also consider increasing the ditropan to 15 mg a day. 22. Need for vaccination - ICD9: V05.9, ICD10: Z23 - PNEUMOCOCCAL VACCINE (PREVNAR 20): given F/u 6 months routine I spent a total of 40 minutes on the date of the service which included preparing to see the patient, [id number] patient care, completing clinical documentation, performing a medically appropriate examination, counseling and educating the patient/family/caregiver and ordering medications, tests, or procedures. Yosef Whitaker MD documented in this encounter [facility] 12-20-2021 Miscellaneous Notes The following approved medication requests have been transmitted electronically. Requested Prescriptions Signed Prescriptions Disp Refills gabapentin (NEURONTIN) 400 mg capsule 540 capsule 1 Sig: Take 2 capsules by mouth three times daily for 180 days. Authorizing Provider: LOLA ROMO diclofenac, EC, (VOLTAREN) 75 mg EC tablet 180 tablet 1 Sig: Take 1 tablet by mouth twice daily. For pain/inflammation. Take with food. Authorizing Provider: LOLA ROMO PA-C RX INSTRUCTIONS: Patient aware RX will be sent to pharmacy. No need to notify patient. Last OV: 10/06/21 with PCP Last refill: Gabapentin 400 MG 06/28/21 With 540 and1 refills Diclofenac 06/28/21 With 180 and 1 refills Follow up: 01/01/22-medicare well with PCP Mary Chin MA documented in this encounter [facility] 11-29-2021 Miscellaneous Notes LORENZA 10/06/21 NOV 01/01/22 Jaylan Chino LPN documented in this encounter [facility] 10-30-2021 Miscellaneous Notes Please notify this patient that his pathology showed that his penile lesion was an ulceration showing chronic inflammation, but no signs of cancer. Supportive care is recommended. Thanks, Dr. Wilson Message text Patient was aware of the above message in another encounter. Closing. Patient's calls and is asking about results from biopsy that was done on 10/19/2021. Please review and advise, Alpa Tran RN documented in this encounter [facility] 10-27-[address] Wilson routed gave patient their results on different encounter. Patient calling about the results of recent Penile biopsy. Please advise documented in this encounter [facility] 10-19-2021 History of Present illness Narrative Images from the original note were not included. [facility] UROLOGY CLINIC CONSULT NOTE PATIENT: Essie Espino (76 year old) PCP: Yosef Whitaker MD CHIEF COMPLAINT: Persistent penile lesion HISTORY OF PRESENT ILLNESS: Essie Espino is a 76 year old male with with a 1 year history of a penile lesion. Patient states that it has grown in size over the last several months. He is used topical antibiotic ointments, topical steroids, but has not seen any improvement. He has not had any noticeable discomfort but it has bled on 1 or 2 occasions. Patient is accompanied by his . They have had a monogamous 25-year marriage. Testing for GC/chlamydia, and syphilis were negative. REVIEW OF SYSTEMS: Reviewed and otherwise non-contributory. HISTORY: PAST MEDICAL HISTORY Diagnosis Date Arthritis B12 deficiency 04/06/2015 Bilateral leg edema 06/28/2021 Coronary artery disease Diabetic eye exam (HCC) 11/01/2013 Last done:05/20/2018 Diverticulosis of large intestine without hemorrhage Elevated LFTs 12/11/2016 Elevated PSA 12/30/2018 Esophageal stenosis 08/20/2016 Essential hypertension, benign 01/25/2005 Ex-smoker 08/08/2016 US: 08/15/2016 no AAA Fatty liver 09/28/2008 CT showed diffuse fatty infiltration (incidental on CT chest) Mildly elevated LFT's since 01/26 GERD without esophagitis 06/27/2020 Internal hemorrhoids without mention of complication Leg pain, bilateral 12/28/2020 Medicare annual wellness visit, subsequent 12/18/2017 Medicare Part B: 06/20/2010 last done: 12/30/2018 Mixed hyperlipidemia 11/01/2013 Morbid obesity due to excess calories (HCC) 04/06/2015 Neuropathy 10/31/2013 Had low back surgery 2010 for disc herniation and has had numbness in his toes since then. Obesity, Class II, BMI 35-39.9 04/06/2015 Obstructive sleep apnea syndrome 04/06/2015 CPAP with good success Pain of both hip joints 02/06/2019 PMH - PAST MEDICAL HISTORY OF 02/27 release nerves in back Seborrheic keratoses, inflamed 08/10/2015 Left temporal and right check Type 2 diabetes mellitus with diabetic polyneuropathy, without long-term current use of insulin ([facility]) 12/12/2015 Urge incontinence 08/10/2015 VENTRICULAR TACHYCARDIA, PAROXYSMAL 07/04/2005 PAST SURGICAL HISTORY Procedure Laterality Date APPENDECTOMY BACK SURGERY HX CHOLECYSTECTOMY Cholecystectomy COLONOSCOPY FLX DX W/COLLJ SPEC WHEN PFRMD 11/07/2005 Colonoscopy recheck 10 yrs COLONOSCOPY FLX DX W/COLLJ SPEC WHEN PFRMD 07/29/2017 Colonoscopy EGD 05/16/2020 ESOPHAGOGASTRODUODENOSCOPY TRANSORAL DIAGNOSTIC 03/23/2013 EGD EYE SURGERY HX FECAL OCCULT BLOOD TEST 12/14/2016 negative PAST SURGICAL HISTORY OF 03/2008 lumbar decompression, [facility] PAST SURGICAL HISTORY OF 09/2014 left cataract PAST SURGICAL HISTORY OF 2008 right cataract PAST SURGICAL HISTORY OF Left 09/02/2018 partial medial and lateral menisectomy, loose body removal. TONSILLECTOMY HX Social History Tobacco Use Smoking status: Former Smoker Packs/day: 1.00 Years: 20.00 Pack years: 20.00 Types: Cigarettes Quit date: 04/22/1989 Years since quittin.5 Smokeless tobacco: Never Used Substance Use Topics Alcohol use: Yes Comment: OCCASIONAL Drug use: No FAMILY HISTORY Problem Relation Age of Onset Diabetes Paternal Grandmother Coronary Artery Disease Father age 68; heavy EtOH use Alcohol/Drug Father alcoholism Prostate Cancer Other none Colon Cancer Other none known MEDICATIONS: Current Outpatient Medications Medication Sig gabapentin (NEURONTIN) 100 mg capsule Take 2 capsules by mouth three times daily for 90 days. Along with your 800 mg three times a day for a total of 1000 mg three times a day. gabapentin (NEURONTIN) 400 mg capsule Take 2 capsules by mouth three times daily for 180 days. losartan (COZAAR) 50 mg tablet Take 1 tablet by mouth once daily. simvastatin (ZOCOR) 10 mg tablet Take 1 tablet by mouth daily at bedtime. diclofenac, EC, (VOLTAREN) 75 mg EC tablet Take 1 tablet by mouth twice daily. For pain/inflammation. Take with food. hydroCHLOROthiazide (HYDRODIURIL, ESIDRIX) 12.5 mg tablet Take 1 tablet by mouth once daily. oxybutynin ER (DITROPAN XL) 10 mg 24 hr tablet Take 1 tablet by mouth once daily. For overactive bladder omeprazole (PRILOSEC) 40 mg capsule Take 1 capsule by mouth once daily. metFORMIN (GLUCOPHAGE) 1,000 mg tablet Take 1 tablet by mouth twice daily with meals. cyanocobalamin (VITAMIN B-12) 1,000 mcg tab Take 1 tablet by mouth once daily. CPAP Use 10 cm in the nose daily at bedtime. ASPIRIN 81 MG TAB Take one(1) tablet daily. No current facility-administered medications for this visit. PHYSICAL EXAMINATION: VITALS: Ht 168.9 cm (5' 6.5 ) Wt 103 kg (227 lb) BMI 36.09 kg/m GENERAL: alert, no distress, normal affect RESPIRATORY: normal effort ABDOMEN: soft, non-tender GENITOURINARY: Inguinal: No lesions, adenopathy, or hernias Phallus: normal, circumcised, no lesions Meatus: orthotopic, patent, no discharge Scrotum: no lesions, normal rugae Testes: Descended, nontender, and no masses bilaterally L: nl R:nl Epididymides: L nl R nl Vas deferens: palpable bilaterally Varicocele: none EXTREMITIES: warm, no dependent edema, no malformations SKIN: no abnormal bruising, no rashes, no cyanosis NEUROLOGIC: normal gait, good manual dexterity, no paralysis Punch biopsy procedure: Indication: Persistent penile lesion Safety check: Patient's name confirmed, date of confirmed Proceduralist: Gilbert Wilson MD Description of procedure: Patient was placed in a supine position. Dorsal portion of the coronal sulcus was cleaned with alcohol swab. Topical lidocaine jelly applied but patient continued to feel the area. 0.5 cc 1% lidocaine was injected subcu. Punch biopsy performed. Hemostasis was achieved with direct pressure. Bleeding was altered with silver nitrate stick. The area was dressed with pressure bandage and tape. EBL: Less than 0.5 cc Disposition: Patient did well without complications. Total time of procedure: 10 minutes OTHER DATA: Creatinine Date Value Ref Range Status 12/21/2020 1.13 0.73 - 1.22 mg/dL Final 06/24/2020 1.08 0.73 - 1.22 mg/dL Final 06/19/2019 1.10 0.73 - 1.22 mg/dL Final 12/24/2018 1.02 0.73 - 1.22 mg/dL Final ASSESSMENT/PLAN: 1. 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 Punch biopsy performed today. - SURGICAL PATHOLOGY pending. Further recommendations to follow. Consultation requested by Dr. Yosef Whitaker [id number] [facility] [place] [address] for an opinion regarding Mr. Espino and my final recommendations will be communicated back to the requesting physician by way of shared Medical record or letter via [place] mail. Gilbert Wilson MD, MS Associate Staff [facility] [place] [facility] documented in this encounter [facility] 10-16-[address] - 10/16/2021 10:38 AM EDT Increase exercise to 30 min, - plan for 10 min three x daily; if able add weight resistance 2-3 x per week (youtube videos) Consider tracking intake with kiel such as Inhale Digitalpal aiming for 5178-3919 calories Follow the Plate Method at lunch and dinner: Use a 9 plate - 1/2 plate vegetables-non starchy such as green beans, greens, broccoli, cauliflower, etc (1 serving of fruit optional outside of plate) - 1/4 plate lean protein-primarily chicken, turkey fish, lean red 1-2 x per week at most (size of palm) - 1/4 plate whole grain or starchy vegetable such as corn, peas, potatoes, beans (size of fist, 1 cup) Choose whole grain, high fiber breads and grains. Adult cereals - high fiber, low sugar) Change to Fair 1% milk Keep dinner light, then no eating after dinner. documented in this encounter [facility] 10-16-2021 History of Present illness Narrative Nutrition Therapy Initial Assessment Nutrition Diagnosis: Overweight/obesity, related to, excess energy intake and physical inactivity, as evidenced by BMI above normative standard for age and gender. RECOMMENDED MALNUTRITION DIAGNOSIS: NO MALNUTRITION IDENTIFIED NUTRITION CARE PLAN Nutrition Intervention 10/16/2021: modify type and amount of food or beverage Increase exercise to 30 min, - plan for 10 min three x daily; if able add weight resistance 2-3 x per week (youtube videos) Consider tracking intake with kiel such as Inhale Digitalpal aiming for 3307-1547 calories Follow the Plate Method at lunch and dinner: Use a 9 plate - 1/2 plate vegetables-non starchy such as green beans, greens, broccoli, cauliflower, etc (1 serving of fruit optional outside of plate) - 1/4 plate lean protein-primarily chicken, turkey fish, lean red 1-2 x per week at most (size of palm) - 1/4 plate whole grain or starchy vegetable such as corn, peas, potatoes, beans (size of fist, 1 cup) Choose whole grain, high fiber breads and grains. Adult cereals - high fiber, low sugar) Change to Fair 1% milk Keep dinner light, then no eating after dinner. Nutrition Monitoring & Evaluation: half to one pound weight loss per week Need for Follow up: 4-6 weeks Patient presents for initial MNT as relates to class 2 obesity Body mass index is 35.65 kg/m . Other medical issues MD, CAD, HTN, HLD. Has been steadily losing with starting weight 265 lbs with goal of 200 lbs . Intake noted for three meals and 1-2 snacks, frequent sweets. Patient complains of no further weight loss suspect intake meeting needs with choices and portions. Includes regular exercise but less than recommended . Beverages appropriate. Patient's symptoms are: Weight Concerns: Plateau Diet History: Breakfast - meal bar ( slim fast - 200-250 calories) and banana, coffee with creamer Snack - not usually Lunch - cereal (corn flakes or fruit loops or frosted mini wheats or cheerios)/2% milk, occ fruit Snack - occ 2 pretzels rods Dinner - tonite will be stair dewitt over rice noodles (does not like rice); meat, potato and veg ( green beans, peas, carrots, corn) or salad Pasta and garlic bread and salad, pizza; . Water or iced tea diet or diet Dr. peres Snack - Saturday pop corn, SF fudge bar or skinny cow ice cream; fruit with cool whip. Dots and twizzerls box at the movies one x per month Beverages - Water or iced tea diet or diet Dr. 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 Resting Metabolic Rate: 1749 Malnutrition Screening Significant unintentional weight loss? No Eating less than 75% of usual intake for more than 2 weeks? No Potential Signs of Inflammation: no identifiable sources Education Materials Provided: plate method, Healthy substitutions READINESS TO LEARN Cognitive ability: Alert and oriented Motivation to learn: Interested Family support: Unable to assess - Family not present Instruction provided to: Patient Patient learns best by: Individual Instruction Factors affecting learning: None Physical limitations affecting learning: None Referred/Supervised by: Julianne/Bhavin EDGE Billing Type: Initial Assess/15 min 2 units SIGNATURE: Lila Blanca RD PATIENT NAME: Essie Espino DATE: October 16, 2021 TIME: 10:09 AM documented in this encounter [facility] 10-10-2021 Miscellaneous Notes Patient notified via M.Setek message. Mary Chin MA Let patient know testing for syphilis, gonorrhea and chlamydia were all negative. documented in this encounter [facility] 10-06-2021 History of Present illness Narrative Chief Complaint Patient presents with: LESION, SKIN: Patient is here for sore HPI Essie Espino is a 76 year old male who presents here today for Acute onset of sore on penis. Patient with Hx of DM type 2, B12 def, CAD, GERD, Hypertension, Hyperlipidemia, obesity, neuropathy along with those reviewed and addressed below and in ROS. Concerns; Patient noted a lesion on the dorsal surface of the penis several months ago. No pain or itching. Thinks it has gotten slightly larger in size. He tried some antibiotic ointment and steroid cream with no improvement Has been monogamous for th past 25 years along with . No same sex partners. Past medical history, appointments, medications, allergies reviewed. Previous Medical History PAST MEDICAL HISTORY Diagnosis Date Arthritis B12 deficiency 04/06/2015 Bilateral leg edema 06/28/2021 Coronary artery disease Diabetic eye exam (HCC) 11/01/2013 Last done:05/20/2018 Diverticulosis of large intestine without hemorrhage Elevated LFTs 12/11/2016 Elevated PSA 12/30/2018 Esophageal stenosis 08/20/2016 Essential hypertension, benign 01/25/2005 Ex-smoker 08/08/2016 US: 08/15/2016 no AAA Fatty liver 09/28/2008 CT showed diffuse fatty infiltration (incidental on CT chest) Mildly elevated LFT's since 01/26 GERD without esophagitis 06/27/2020 Internal hemorrhoids without mention of complication Leg pain, bilateral 12/28/2020 Medicare annual wellness visit, subsequent 12/18/2017 Medicare Part B: 06/20/2010 last done: 12/30/2018 Mixed hyperlipidemia 11/01/2013 Morbid obesity due to excess calories (HCC) 04/06/2015 Neuropathy 10/31/2013 Had low back surgery 2010 for disc herniation and has had numbness in his toes since then. Obesity, Class II, BMI 35-39.9 04/06/2015 Obstructive sleep apnea syndrome 04/06/2015 CPAP with good success Pain of both hip joints 02/06/2019 PMH - PAST MEDICAL HISTORY OF 02/27 release nerves in back Seborrheic keratoses, inflamed 08/10/2015 Left temporal and right check Type 2 diabetes mellitus with diabetic polyneuropathy, without long-term current use of insulin (HCC) 12/12/2015 Urge incontinence 08/10/2015 VENTRICULAR TACHYCARDIA, PAROXYSMAL 07/04/2005 Previous Surgical History PAST SURGICAL HISTORY Procedure Laterality Date APPENDECTOMY BACK SURGERY HX CHOLECYSTECTOMY Cholecystectomy COLONOSCOPY FLX DX W/COLLJ SPEC WHEN PFRMD 11/07/2005 Colonoscopy recheck 10 yrs COLONOSCOPY FLX DX W/COLLJ SPEC WHEN PFRMD 07/29/2017 Colonoscopy EGD 05/16/2020 ESOPHAGOGASTRODUODENOSCOPY TRANSORAL DIAGNOSTIC 03/23/2013 EGD EYE SURGERY HX FECAL OCCULT BLOOD TEST 12/14/2016 negative PAST SURGICAL HISTORY OF 03/2008 lumbar decompression, [facility] PAST SURGICAL HISTORY OF 09/2014 left cataract PAST SURGICAL HISTORY OF 2007 right cataract PAST SURGICAL HISTORY OF Left 09/02/2018 partial medial and lateral menisectomy, loose body removal. TONSILLECTOMY HX Family History FAMILY HISTORY Problem Relation Age of Onset Diabetes Paternal Grandmother Coronary Artery Disease Father age 68; heavy EtOH use Alcohol/Drug Father alcoholism Prostate Cancer Other none Colon Cancer Other none known Patient Allergies ALLERGIES Allergen Reactions Chlorhexidine Gluco* Shortness of Breath Lisinopril Cough Penicillins Intolerance thinks he has had PCN without complication Current Medications Current Outpatient Medications on File Prior to Visit Medication Sig gabapentin (NEURONTIN) 100 mg capsule Take 2 capsules by mouth three times daily for 90 days. Along with your 800 mg three times a day for a total of 1000 mg three times a day. gabapentin (NEURONTIN) 400 mg capsule Take 2 capsules by mouth three times daily for 180 days. losartan (COZAAR) 50 mg tablet Take 1 tablet by mouth once daily. simvastatin (ZOCOR) 10 mg tablet Take 1 tablet by mouth daily at bedtime. diclofenac, EC, (VOLTAREN) 75 mg EC tablet Take 1 tablet by mouth twice daily. For pain/inflammation. Take with food. hydroCHLOROthiazide (HYDRODIURIL, ESIDRIX) 12.5 mg tablet Take 1 tablet by mouth once daily. oxybutynin ER (DITROPAN XL) 10 mg 24 hr tablet Take 1 tablet by mouth once daily. For overactive bladder omeprazole (PRILOSEC) 40 mg capsule Take 1 capsule by mouth once daily. metFORMIN (GLUCOPHAGE) 1,000 mg tablet Take 1 tablet by mouth twice daily with meals. cyanocobalamin (VITAMIN B-12) 1,000 mcg tab Take 1 tablet by mouth once daily. CPAP Use 10 cm in the nose daily at bedtime. ASPIRIN 81 MG TAB Take one(1) tablet daily. No current facility-administered medications on file prior to visit. Social History Social History Tobacco Use Smoking status: Former Smoker Packs/day: 1.00 Years: 20.00 Pack years: 20.00 Types: Cigarettes Quit date: 04/22/1989 Years since quittin.4 Smokeless tobacco: Never Used Substance Use Topics Alcohol use: Yes Comment: OCCASIONAL Drug use: No Review of Symptoms REVIEW OF SYSTEMS See HPI EXAM: BP 118/70 (BP Site: Right Arm, BP Position: Sitting, BP Cuff Size: Large Adult) Pulse 76 Resp 16 Wt 104.8 kg (231 lb) BMI 35.65 kg/m Last 5 Encounter Wt Readings: Date: Wt: 10/06/2021 104.8 kg (231 lb) 08/28/2021 106.1 kg (234 lb) 06/28/2021 105.7 kg (233 lb) 12/28/2020 99.8 kg (220 lb) 06/27/2020 104.3 kg (230 lb) General Appearance: Well appearing, alert, in no acute distress, well-hydrated, well nourished.. Skin: has two oval lesions on the dorsal shaft just below the glans No blistering. Health Maintenance List ADVANCE DIRECTIVE DISCUSSION Never done COVID-19 VACCINE(4 - Booster for Pfizer series) due on 06/19/2021 DTAP,TDAP,TD(3 - Td or Tdap) due on 06/28/2022 URINE ALBUMIN:CREATININE RATIO due on 12/21/2021 HBA1C due on 12/27/2021 DIABETIC FOOT EXAM due on 12/28/2021 DILATED RETINAL EXAM due on 06/02/2022 LDL CHOLESTEROL due on 06/26/2022 ANNUAL PCP TEAM CHRONIC DISEASE VISIT due on 08/28/2022 BP CONTROLLED (<130/80) due on 08/28/2022 INFLUENZA Completed HEPATITIS C SCREENING Completed SHINGRIX VACCINE Completed PNEUMOCOCCAL: 65+ Completed DEPRESSION SCREENING Discontinued Data reviewed A/P ASSESSMENT/PLAN: 1. 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 Yosef Whitaker MD documented in this encounter [facility] 09-05-2021 Miscellaneous Notes Addended by: YOSEF WHITAKER on: 09/05/2021 01:29 PM Modules accepted: Orders The following approved medication requests have been transmitted electronically. Signed Prescriptions Disp Refills gabapentin (NEURONTIN) 100 mg capsule 540 capsule 0 Sig: Take 2 capsules by mouth three times daily for 90 days. Along with your 800 mg three times a day for a total of 1000 mg three times a day. RIMMA: No Authorizing Provider: YOSEF WHITAKER MD Addended by: GRIS GRANDA LPN on: 09/05/2021 01:14 PM Modules accepted: Orders Pt's Stacey states she called [facility] & was told they do not have a refill on file for gabapentin 100mg, per pt's chart a refill was escripted in for the 100mg & 400mg at the same time. [facility] does have a refill for the 400mg. Please advise. Gris Granda LPN Spoke with pt and advised of Dr Whitaker's message. Pt states he got his gabapentin 400 mg in the mail but did not get the 100 mg. Advised him they were ordered at the same time for the same amount. Pt is going to contact [facility] and will contact office if any issues. Jaylan Chino LPN Advise patient his last refill for the gabapentin 100 mg on 06/28/2021 was good for 90 days with one refill. Has he called [facility] to get his next refill sent? Last refill 06/28/21 Qty: 540 with 1 refill Last ov 08/28/21 Pt has appt 01/01/22 Jaylan Chino LPN documented in this encounter [facility] 08-31-2021 History of Present illness Narrative Episode Visit Count: 1 Therapist That Will Oversee The Plan Of Care: Jovanni Bright Start of Care Date: 08/31/21 Onset Date: 08/31/18 Plan of Care Certification Date: 08/31/21 Next Certification Due Date: 10/31/21 Patient Identified by Name and Date of : Yes REHABILITATION AND SPORTS THERAPY PHYSICAL THERAPY EVALUATION PLAN OF CARE: Assessment: Essie Espino presents with chief complaint of right sided hip/LBP that interferes with standing . He presents with impairments in ADL's, overall function and strength. Prognosis for therapy is Good due to: current objective clinical presentation;good overall health status;positive past response to therapy;good support system/ coping skills . He will benefit from skilled therapy services to meet the goals established for this plan of care as noted below. Classification Low Back Pain Subgroup Classification: Core stabilization subgroup: recommended visits 10. Core Stabilization Subgroup Classification based on: pain with transitional movements;aberrant movements Goals for Episode of Care: created on 08/31/21 through 10/31/21 Independent in home exercises. Patient will decrease pain rating by 2 points to meet minimal clinical important difference for numeric pain rating scale. Restore pain-free lumbar ROM to WNL to allow for improved functional mobility Stand / Walk as needed for ADLs without pain/symptoms. Patient will increase strength of trunk/core to 4+/5 to allow for improve ability to complete ADLs. Planned Interventions, Frequency, and Duration: Current Frequency: 1x/week Duration: 8 weeks Total Number of Visits Planned: 8 Planned Treatment Interventions: Therapeutic exercise (00941);Neuromuscular re-education (02251);Manual therapy (25331);Therapeutic activities (59855);Self-prison management (47316);Patient/Family/Caregiver Education;Body Mechanics Training PLAN FOR NEXT VISIT: Core strengthening progression per tolerance. May be a traction candidate Patient demonstrates good understanding of plan of care and treatment. The above goals and plan of care were discussed and agreed upon by patient/family. SUBJECTIVE: Essie Espino is a 76 year old male seen today for R post hip/LBP for years, with recent increase as of late. Prolonged standing is the only thing that tends to bother him. Resting helps, but he is concerned bc he wants to be more active. Feels like a dull ache/soreness. Denies ignacia n/t or radiating pain Functional Limitations: standing Intake Information: Prescription present Pain: Pain Pain Level: 5 Pain Location: Hip - Right;Low Back/Lumbar Spine - Right Description: Aching;Sore;Dull Frequency: Intermittent Post Treatment Pain Post Treatment Symptoms: a little sore PROMIS Scales T-scores: mean of general population = 50. 5 points is clinically meaningfully difference Percentiles provide an indication of how the patient's score ranks in relation to the general population. Higher percentile rankings indicate better function/quality of life. 50th percentile is the average of the general population and indicates half of respondents had a worse score. T-scores: mean of general population = 50. 5 points is clinically meaningfully difference Percentiles provide an indication of how the patient's score ranks in relation to the general population. Higher percentile rankings indicate better function/quality of life. 50th percentile is the average of the general population and indicates half of respondents had a worse score. OBJECTIVE MEASURES WITH LEVEL OF FUNCTION: Spine Observations R Lumbar Spine Palpation Tenderness: Paraspinals;PSIS (posterior superior iliac spine) Lumbar Spine AROM Lumbar Flexion: Normal Lumbar Extension: Moderate limitation Lumbar R Side-Bend: Normal Lumbar L Side-Bend: Normal Lumbar R Rotation: Normal Lumbar L Rotation: Normal Repeated Test Movements - Lumbar RFIL - Symptoms During: decreases RFIL - Symptoms After: better LE Strength Trunk Strength: 3+/5 grossly R LE Strength: 4+/5 grossly L LE Strength: 4+/5 grossly Special Tests - Hip and Spine Hip and Spine Special Tests: SLR Test SLR Test: Right Negative;Left Negative Education: Education Learning/educational needs: Home exercise program;Plan of Care;Changes in Plan of Care;Posture;Body Mechanics TREATMENT: PT Treatment Interventions: Therapeutic Exercise Evaluation Therapeutic Exercise: 1: *SKC 3x30 sec/side 2: *DKC 3x30 sec 3: *B Tband rows 3x10 4: *B Tband straight arm extensions 3x10 5: *B Tband palloff press 3x10/side 6: Discussed importance of HEP, proper follow through, and rationale for exercises Skilled Intervention: Patient was educated in proper exercise technique and purpose for exercises. Skilled judgment was provided in selection of appropriate interventions. Provided written instruction for home exercise program to facilitate proper performance and compliance. Correct performance of therapeutic exercises was facilitated with verbal, visual and tactile cuing. Educated patient on rationale for performing exercises in regards to decreasing fatigue , increase ease of ADL and ROM and function . Patient education as noted. Billing * Evaluation Low Complexity: 1 Unit Therapeutic Exercise Treatment Minutes: 24 Total Treatment Time Minutes (timed/untimed): 45 Jovanni Bright PT documented in this encounter [facility] 08-28-2021 History of Present illness Narrative Chief Complaint Patient presents with: Follow Up: left ankle pain and swellling. HPI Essie Espino is a 76 year old male who presents here today for Chronic Medical Conditions.. Patient with Hx of DM type 2, B12 def, CAD, GERD, Hypertension, Hyperlipidemia, obesity, neuropathy along with those reviewed and addressed below and in ROS. Concerns: Right hip pain; scale 4; achey. Been bothering him off and on for 1 month. No injury. Patient has been taking the diclofenac twice a day and this has helped his left ankle pain. Wearing the support socks has also helped. 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 Bathroom. Has been standing more and with this the right hip has been hurting more. No grinding with walking. Points to the SI area as to where the pain is. When in his recliner he tends to slouch to the right because his water and remote is on that side. Denies pain radiating down the back of his legs and no numbness going down the legs just his neuropathy in his feet. No pain when laying on the right hip. Past medical history, appointments, medications, allergies reviewed. Previous Medical History PAST MEDICAL HISTORY Diagnosis Date Arthritis B12 deficiency 04/06/2015 Bilateral leg edema 06/28/2021 Coronary artery disease Diabetic eye exam (HCC) 11/01/2013 Last done:05/20/2018 Diverticulosis of large intestine without hemorrhage Elevated LFTs 12/11/2016 Elevated PSA 12/30/2018 Esophageal stenosis 08/20/2016 Essential hypertension, benign 01/25/2005 Ex-smoker 08/08/2016 US: 08/15/2016 no AAA Fatty liver 09/28/2008 CT showed diffuse fatty infiltration (incidental on CT chest) Mildly elevated LFT's since 01/26 GERD without esophagitis 06/27/2020 Internal hemorrhoids without mention of complication Leg pain, bilateral 12/28/2020 Medicare annual wellness visit, subsequent 12/18/2017 Medicare Part B: 06/20/2010 last done: 12/30/2018 Mixed hyperlipidemia 11/01/2013 Morbid obesity due to excess calories (HCC) 04/06/2015 Neuropathy 10/31/2013 Had low back surgery 2010 for disc herniation and has had numbness in his toes since then. Obesity, Class II, BMI 35-39.9 04/06/2015 Obstructive sleep apnea syndrome 04/06/2015 CPAP with good success Pain of both hip joints 02/06/2019 PMH - PAST MEDICAL HISTORY OF 02/27 release nerves in back Seborrheic keratoses, inflamed 08/10/2015 Left temporal and right check Type 2 diabetes mellitus with diabetic polyneuropathy, without long-term current use of insulin ([facility]) 12/12/2015 Urge incontinence 08/10/2015 VENTRICULAR TACHYCARDIA, PAROXYSMAL 07/04/2005 Previous Surgical History PAST SURGICAL HISTORY Procedure Laterality Date APPENDECTOMY BACK SURGERY HX CHOLECYSTECTOMY Cholecystectomy COLONOSCOPY FLX DX W/COLLJ SPEC WHEN PFRMD 11/07/2005 Colonoscopy recheck 10 yrs COLONOSCOPY FLX DX W/COLLJ SPEC WHEN PFRMD 07/29/2017 Colonoscopy EGD 05/16/2020 ESOPHAGOGASTRODUODENOSCOPY TRANSORAL DIAGNOSTIC 03/23/2013 EGD EYE SURGERY HX FECAL OCCULT BLOOD TEST 12/14/2016 negative PAST SURGICAL HISTORY OF 03/2008 lumbar decompression, [facility] PAST SURGICAL HISTORY OF 09/2014 left cataract PAST SURGICAL HISTORY OF 2007 right cataract PAST SURGICAL HISTORY OF Left 09/02/2018 partial medial and lateral menisectomy, loose body removal. TONSILLECTOMY HX Family History FAMILY HISTORY Problem Relation Age of Onset Diabetes Paternal Grandmother Coronary Artery Disease Father age 68; heavy EtOH use Alcohol/Drug Father alcoholism Prostate Cancer Other none Colon Cancer Other none known Patient Allergies ALLERGIES Allergen Reactions Chlorhexidine Gluco* Shortness of Breath Lisinopril Cough Penicillins Intolerance thinks he has had PCN without complication Current Medications Current Outpatient Medications on File Prior to Visit Medication Sig gabapentin (NEURONTIN) 100 mg capsule Take 2 capsules by mouth three times daily for 180 days. Along with your 800 mg three times a day for a total of 1000 mg three times a day. gabapentin (NEURONTIN) 400 mg capsule Take 2 capsules by mouth three times daily for 180 days. losartan (COZAAR) 50 mg tablet Take 1 tablet by mouth once daily. simvastatin (ZOCOR) 10 mg tablet Take 1 tablet by mouth daily at bedtime. diclofenac, EC, (VOLTAREN) 75 mg EC tablet Take 1 tablet by mouth twice daily. For pain/inflammation. Take with food. hydroCHLOROthiazide (HYDRODIURIL, ESIDRIX) 12.5 mg tablet Take 1 tablet by mouth once daily. oxybutynin ER (DITROPAN XL) 10 mg 24 hr tablet Take 1 tablet by mouth once daily. For overactive bladder omeprazole (PRILOSEC) 40 mg capsule Take 1 capsule by mouth once daily. metFORMIN (GLUCOPHAGE) 1,000 mg tablet Take 1 tablet by mouth twice daily with meals. cyanocobalamin (VITAMIN B-12) 1,000 mcg tab Take 1 tablet by mouth once daily. CPAP Use 10 cm in the nose daily at bedtime. ASPIRIN 81 MG TAB Take one(1) tablet daily. No current facility-administered medications on file prior to visit. Social History Social History Tobacco Use Smoking status: Former Smoker Packs/day: 1.00 Years: 20.00 Pack years: 20.00 Types: Cigarettes Quit date: 04/22/1989 Years since quittin.3 Smokeless tobacco: Never Used Substance Use Topics Alcohol use: Yes Comment: OCCASIONAL Drug use: No Review of Symptoms REVIEW OF SYSTEMS See HPI EXAM: BP 112/68 (BP Site: Right Arm, BP Position: Sitting, BP Cuff Size: Large Adult) Pulse 68 Resp 16 Wt 106.1 kg (234 lb) BMI 36.11 kg/m Last 6 Encounter Wt Readings: Date: Wt: 08/28/2021 106.1 kg (234 lb) 06/28/2021 105.7 kg (233 lb) 12/28/2020 99.8 kg (220 lb) 06/27/2020 104.3 kg (230 lb) 01/12/2020 105.2 kg (232 lb) 11/03/2019 106.6 kg (235 lb) General Appearance: Well appearing, alert, in no acute distress, well-hydrated, well nourished.. Extremities: No deformities. No edema in the left lower leg or ankle today. Musculoskeletal: has some mild pain with palpation over the right SI region. Right hip has good ROM with no pain with hip flexion, extension, internal/external rotation. No clicking or popping. No pain with palpation to anterior hip or lateral hip. Health Maintenance List ADVANCE DIRECTIVE DISCUSSION Never done COVID-19 VACCINE(4 - Booster for Pfizer series) due on 06/19/2021 DTAP,TDAP,TD(3 - Td or Tdap) due on 06/28/2022 URINE ALBUMIN:CREATININE RATIO due on 12/21/2021 HBA1C due on 12/27/2021 DIABETIC FOOT EXAM due on 12/28/2021 DILATED RETINAL EXAM due on 06/02/2022 LDL CHOLESTEROL due on 06/26/2022 ANNUAL PCP TEAM CHRONIC DISEASE VISIT due on 06/28/2022 BP CONTROLLED (<130/80) due on 06/28/2022 INFLUENZA Completed HEPATITIS C SCREENING Completed PNEUMOVAX AGE 65 AND OVER WITH 5YR LOOKBACK Completed SHINGRIX VACCINE Completed MENINGOCOCCAL CONJUGATE Aged Out DEPRESSION SCREENING Discontinued Data reviewed Impression IMPRESSION: Soft tissue swelling of the distal leg and ankle. No acute osseous abnormality identified. Tire Builder: PSCB Transcribe Date/Time: Jun 28 2021 3:15P Dictated by : ANIYAH CARTER MD This examination was interpreted and the report reviewed and electronically signed by: ANIYAH CARTER MD on Jun 28 2021 3:17PM EST Results-Findings * * *Final Report* * * DATE OF EXAM: Jun 28 2021 11:56AM WRX [id number] - XR ANKLE 3V AP/LAT/OBL LT / PROCEDURE REASON: Left ankle pain, unspecified chronicity * * * * Physician Interpretation * * * * Left ankle radiographs HISTORY: 75 years old Clinical information: Left ankle pain, unspecified chronicity pain medial side and swelling in entire left ankle for a year no inj TECHNIQUE: Images: XR ANKLE 3V AP/LAT/OBL LT Comparison: February 06, 2019. RESULT: Findings: Ankle mortise is congruent. Minimal osteophyte formation involving the medial malleolus. Plantar calcaneal spur. Enthesophyte at the Achilles insertion site on the calcaneus. No acute fracture or dislocation identified. Soft tissue swelling of the distal leg. A/P ASSESSMENT/PLAN: 1. Bilateral leg edema - ICD9: 782.3, ICD10: R60.0 (primary diagnosis) - Better with us of support socks 2. Left ankle pain, unspecified chronicity - ICD9: 719.47, ICD10: M25.572 - Some Arthritis on XR. Cont diclofenac. 3. Obesity, Class II, BMI 35-39.9 - ICD9: 278.00, ICD10: E66.9 - CONSULT TO NUTRITION THERAPY 4. Right hip pain - ICD9: 719.45, ICD10: M25.551 - XR HIP GENERAL 3V PELV/AP/LAT RIGHT - CONSULT TO PHYSICAL THERAPY F/u next routine. Sooner if issues. Yosef Whitaker MD documented in this encounter [facility] documented as of this encounter (statuses as of 08/29/2021) [address] History of Past illness Narrative* Problem Noted Date Resolved Date MEDIASTINAL SHIFT 07/04/2005 05/01/2007 documented as of this encounter (statuses as of 08/31/2021) [address] History of Past illness Narrative* Problem Noted Date Resolved Date MEDIASTINAL SHIFT 07/04/2005 05/01/2007 documented as of this encounter (statuses as of 09/05/2021) [address] History of Past illness Narrative* Problem Noted Date Resolved Date MEDIASTINAL SHIFT 07/04/2005 05/01/2007 documented as of this encounter (statuses as of 09/26/2021) [address] History of Past illness Narrative* Problem Noted Date Resolved Date MEDIASTINAL SHIFT 07/04/2005 05/01/2007 documented as of this encounter (statuses as of 10/09/2021) [address] History of Past illness Narrative* Problem Noted Date Resolved Date MEDIASTINAL SHIFT 07/04/2005 05/01/2007 documented as of this encounter (statuses as of 10/10/2021) [address] History of Past illness Narrative* Problem Noted Date Resolved Date MEDIASTINAL SHIFT 07/04/2005 05/01/2007 documented as of this encounter (statuses as of 10/16/2021) [address] History of Past illness Narrative* Problem Noted Date Resolved Date MEDIASTINAL SHIFT 07/04/2005 05/01/2007 documented as of this encounter (statuses as of 10/19/2021) [address] History of Past illness Narrative* Problem Noted Date Resolved Date MEDIASTINAL SHIFT 07/04/2005 05/01/2007 documented as of this encounter (statuses as of 10/27/2021) [address] History of Past illness Narrative* Problem Noted Date Resolved Date MEDIASTINAL SHIFT 07/04/2005 05/01/2007 documented as of this encounter (statuses as of 10/30/2021) [address] History of Past illness Narrative* Problem Noted Date Resolved Date MEDIASTINAL SHIFT 07/04/2005 05/01/2007 documented as of this encounter (statuses as of 11/29/2021) [address] History of Past illness Narrative* Problem Noted Date Resolved Date MEDIASTINAL SHIFT 07/04/2005 05/01/2007 documented as of this encounter (statuses as of 12/20/2021) [address] History of Past illness Narrative* Problem Noted Date Resolved Date MEDIASTINAL SHIFT 07/04/2005 05/01/2007 documented as of this encounter (statuses as of 01/02/2022) [address] History of Past illness Narrative* Problem Noted Date Resolved Date MEDIASTINAL SHIFT 07/04/2005 05/01/2007 documented as of this encounter (statuses as of 01/02/2022) [address] History of Past illness Narrative* Problem Noted Date Resolved Date MEDIASTINAL SHIFT 07/04/2005 05/01/2007 documented as of this encounter (statuses as of 01/03/2022) [address] History of Past illness Narrative* Problem Noted Date Resolved Date MEDIASTINAL SHIFT 07/04/2005 05/01/2007 documented as of this encounter (statuses as of 01/22/2022) [address] History of Past illness Narrative* Problem Noted Date Resolved Date MEDIASTINAL SHIFT 07/04/2005 05/01/2007 documented as of this encounter (statuses as of 02/01/2022) [address] History of Past illness Narrative* Problem Noted Date Resolved Date MEDIASTINAL SHIFT 07/04/2005 05/01/2007 documented as of this encounter (statuses as of 02/10/2022) [address] History of Past illness Narrative* Problem Noted Date Resolved Date MEDIASTINAL SHIFT 07/04/2005 05/01/2007 documented as of this encounter (statuses as of 03/12/2022) [address] History of Past illness Narrative* Problem Noted Date Resolved Date MEDIASTINAL SHIFT 07/04/2005 05/01/2007 documented as of this encounter (statuses as of 04/26/2022) [address] History of Past illness Narrative* Problem Noted Date Resolved Date MEDIASTINAL SHIFT 07/04/2005 05/01/2007 documented as of this encounter (statuses as of 04/26/2022) [address] History of Past illness Narrative* Problem Noted Date Resolved Date MEDIASTINAL SHIFT 07/04/2005 05/01/2007 documented as of this encounter (statuses as of 04/28/2022) [address] History of Past illness Narrative* Problem Noted Date Resolved Date MEDIASTINAL SHIFT 07/04/2005 05/01/2007 documented as of this encounter (statuses as of 05/01/2022) [address] History of Past illness Narrative* Problem Noted Date Resolved Date MEDIASTINAL SHIFT 07/04/2005 05/01/2007 documented as of this encounter (statuses as of 05/07/2022) [address] History of Past illness Narrative* Problem Noted Date Resolved Date MEDIASTINAL SHIFT 07/04/2005 05/01/2007 documented as of this encounter (statuses as of 05/17/2022) [address] History of Past illness Narrative* Problem Noted Date Resolved Date MEDIASTINAL SHIFT 07/04/2005 05/01/2007 documented as of this encounter (statuses as of 05/17/2022) [address] History of Past illness Narrative* Problem Noted Date Resolved Date MEDIASTINAL SHIFT 07/04/2005 05/01/2007 documented as of this encounter (statuses as of 05/18/2022) [address] History of Past illness Narrative* Problem Noted Date Resolved Date MEDIASTINAL SHIFT 07/04/2005 05/01/2007 documented as of this encounter (statuses as of 06/01/2022) [address] History of Past illness Narrative* Problem Noted Date Resolved Date MEDIASTINAL SHIFT 07/04/2005 05/01/2007 documented as of this encounter (statuses as of 06/11/2022) [address] History of Past illness Narrative* Problem Noted Date Resolved Date MEDIASTINAL SHIFT 07/04/2005 05/01/2007 documented as of this encounter (statuses as of 06/13/2022) [address] History of Past illness Narrative* Problem Noted Date Resolved Date MEDIASTINAL SHIFT 07/04/2005 05/01/2007 documented as of this encounter (statuses as of 06/17/2022) [address] History of Past illness Narrative* Problem Noted Date Resolved Date MEDIASTINAL SHIFT 07/04/2005 05/01/2007 documented as of this encounter (statuses as of 06/18/2022) [address] History of Past illness Narrative* Problem Noted Date Resolved Date MEDIASTINAL SHIFT 07/04/2005 05/01/2007 documented as of this encounter (statuses as of 06/21/2022) [address] History of Past illness Narrative* Problem Noted Date Resolved Date MEDIASTINAL SHIFT 07/04/2005 05/01/2007 documented as of this encounter (statuses as of 06/26/2022) [address] History of Past illness Narrative* Problem Noted Date Resolved Date MEDIASTINAL SHIFT 07/04/2005 05/01/2007 documented as of this encounter (statuses as of 06/28/2022) [address] History of Past illness Narrative* Problem Noted Date Resolved Date MEDIASTINAL SHIFT 07/04/2005 05/01/2007 documented as of this encounter (statuses as of 06/28/2022) [address] History of Past illness Narrative* Problem Noted Date Resolved Date MEDIASTINAL SHIFT 07/04/2005 05/01/2007 documented as of this encounter (statuses as of 06/29/2022) [address] History of Past illness Narrative* Problem Noted Date Resolved Date MEDIASTINAL SHIFT 07/04/2005 05/01/2007 documented as of this encounter (statuses as of 06/29/2022) [address] History of Past illness Narrative* Problem Noted Date Resolved Date MEDIASTINAL SHIFT 07/04/2005 05/01/2007 documented as of this encounter (statuses as of 07/03/2022) [address] History of Past illness Narrative* Problem Noted Date Resolved Date MEDIASTINAL SHIFT 07/04/2005 05/01/2007 documented as of this encounter (statuses as of 07/03/2022) [address] History of Past illness Narrative* Problem Noted Date Resolved Date MEDIASTINAL SHIFT 07/04/2005 05/01/2007 documented as of this encounter (statuses as of 07/05/2022) [address] History of Past illness Narrative* Problem Noted Date Resolved Date MEDIASTINAL SHIFT 07/04/2005 05/01/2007 documented as of this encounter (statuses as of 07/06/2022) [address] History of Past illness Narrative* Problem Noted Date Resolved Date MEDIASTINAL SHIFT 07/04/2005 05/01/2007 documented as of this encounter (statuses as of 07/10/2022) [address] History of Past illness Narrative* Problem Noted Date Resolved Date MEDIASTINAL SHIFT 07/04/2005 05/01/2007 documented as of this encounter (statuses as of 2022) [address] History of Past illness Narrative* Problem Noted Date Resolved Date MEDIASTINAL SHIFT 07/04/2005 05/01/2007 documented as of this encounter (statuses as of 07/27/2022) [address] History of Past illness Narrative* Problem Noted Date Resolved Date MEDIASTINAL SHIFT 07/04/2005 05/01/2007 documented as of this encounter (statuses as of 07/31/2022) [address] History of Past illness Narrative* Problem Noted Date Resolved Date MEDIASTINAL SHIFT 07/04/2005 05/01/2007 documented as of this encounter (statuses as of 08/03/2022) [address] History of Past illness Narrative* Problem Noted Date Resolved Date MEDIASTINAL SHIFT 07/04/2005 05/01/2007 documented as of this encounter (statuses as of 08/13/2022) [address] History of Past illness Narrative* Problem Noted Date Resolved Date MEDIASTINAL SHIFT 07/04/2005 05/01/2007 documented as of this encounter (statuses as of 08/15/2022) [address] History of Past illness Narrative* Problem Noted Date Resolved Date MEDIASTINAL SHIFT 07/04/2005 05/01/2007 documented as of this encounter (statuses as of 08/16/2022) [address] History of Past illness Narrative* Problem Noted Date Resolved Date MEDIASTINAL SHIFT 07/04/2005 05/01/2007 documented as of this encounter (statuses as of 08/16/2022) [address] History of Past illness Narrative* Problem Noted Date Resolved Date MEDIASTINAL SHIFT 07/04/2005 05/01/2007 documented as of this encounter (statuses as of 08/27/2022) [address] History of Past illness Narrative* Problem Noted Date Resolved Date MEDIASTINAL SHIFT 07/04/2005 05/01/2007 documented as of this encounter (statuses as of 09/05/2022) [address] History of Past illness Narrative* Problem Noted Date Resolved Date MEDIASTINAL SHIFT 07/04/2005 05/01/2007 documented as of this encounter (statuses as of 09/20/2022) [address] History of Past illness Narrative* Problem Noted Date Resolved Date MEDIASTINAL SHIFT 07/04/2005 05/01/2007 documented as of this encounter (statuses as of 10/05/2022) [address] History of Past illness Narrative* Problem Noted Date Resolved Date MEDIASTINAL SHIFT 07/04/2005 05/01/2007 documented as of this encounter (statuses as of 10/05/2022) [address] History of Past illness Narrative* Problem Noted Date Resolved Date MEDIASTINAL SHIFT 07/04/2005 05/01/2007 documented as of this encounter (statuses as of 10/09/2022) [address] History of Past illness Narrative* Problem Noted Date Resolved Date MEDIASTINAL SHIFT 07/04/2005 05/01/2007 documented as of this encounter (statuses as of 10/10/2022) [address] History of Past illness Narrative* Problem Noted Date Resolved Date MEDIASTINAL SHIFT 07/04/2005 05/01/2007 documented as of this encounter (statuses as of 10/12/2022) [address] History of Past illness Narrative* Problem Noted Date Resolved Date MEDIASTINAL SHIFT 07/04/2005 05/01/2007 documented as of this encounter (statuses as of 10/16/2022) [address] History of Past illness Narrative* Problem Noted Date Resolved Date MEDIASTINAL SHIFT 07/04/2005 05/01/2007 documented as of this encounter (statuses as of 10/17/2022) [address] History of Past illness Narrative* Problem Noted Date Resolved Date MEDIASTINAL SHIFT 07/04/2005 05/01/2007 documented as of this encounter (statuses as of 10/18/2022) [address] History of Past illness Narrative* Problem Noted Date Resolved Date MEDIASTINAL SHIFT 07/04/2005 05/01/2007 documented as of this encounter (statuses as of 10/20/2022) [address] History of Past illness Narrative* Problem Noted Date Resolved Date MEDIASTINAL SHIFT 07/04/2005 05/01/2007 documented as of this encounter (statuses as of 10/25/2022) [address] History of Past illness Narrative* Problem Noted Date Resolved Date MEDIASTINAL SHIFT 07/04/2005 05/01/2007 documented as of this encounter (statuses as of 10/26/2022) [address] History of Past illness Narrative* Problem Noted Date Diagnosed Date Resolved Date MEDIASTINAL SHIFT 07/04/2005 05/01/2007 documented as of this encounter (statuses as of 10/30/2022) [address] History of Past illness Narrative* Problem Noted Date Diagnosed Date Resolved Date MEDIASTINAL SHIFT 07/04/2005 05/01/2007 documented as of this encounter (statuses as of 10/31/2022) [address] History of Past illness Narrative* Problem Noted Date Diagnosed Date Resolved Date MEDIASTINAL SHIFT 07/04/2005 05/01/2007 documented as of this encounter (statuses as of 11/14/2022) [address] History of Past illness Narrative* Problem Noted Date Diagnosed Date Resolved Date MEDIASTINAL SHIFT 07/04/2005 05/01/2007 documented as of this encounter (statuses as of 11/15/2022) [address] History of Past illness Narrative* Problem Noted Date Diagnosed Date Resolved Date MEDIASTINAL SHIFT 07/04/2005 05/01/2007 documented as of this encounter (statuses as of 11/15/2022) [address] History of Past illness Narrative* Problem Noted Date Diagnosed Date Resolved Date MEDIASTINAL SHIFT 07/04/2005 05/01/2007 documented as of this encounter (statuses as of 11/22/2022) [address] History of Past illness Narrative* Problem Noted Date Diagnosed Date Resolved Date MEDIASTINAL SHIFT 07/04/2005 05/01/2007 documented as of this encounter (statuses as of 11/29/2022) [address] History of Past illness Narrative* Problem Noted Date Diagnosed Date Resolved Date MEDIASTINAL SHIFT 07/04/2005 05/01/2007 documented as of this encounter (statuses as of 12/06/2022) [address] History of Past illness Narrative* Problem Noted Date Diagnosed Date Resolved Date MEDIASTINAL SHIFT 07/04/2005 05/01/2007 documented as of this encounter (statuses as of 02/05/2023) [address] History of Past illness Narrative* Problem Noted Date Diagnosed Date Resolved Date MEDIASTINAL SHIFT 07/04/2005 05/01/2007 documented as of this encounter (statuses as of 02/07/2023) [address] History of Past illness Narrative* Problem Noted Date Diagnosed Date Resolved Date MEDIASTINAL SHIFT 07/04/2005 05/01/2007 documented as of this encounter (statuses as of 02/08/2023) [address] History of Past illness Narrative* Problem Noted Date Diagnosed Date Resolved Date MEDIASTINAL SHIFT 07/04/2005 05/01/2007 documented as of this encounter (statuses as of 02/13/2023) [address] History of Past illness Narrative* Problem Noted Date Diagnosed Date Resolved Date MEDIASTINAL SHIFT 07/04/2005 05/01/2007 documented as of this encounter (statuses as of 02/18/2023) [address] History of Past illness Narrative* Problem Noted Date Diagnosed Date Resolved Date MEDIASTINAL SHIFT 07/04/2005 05/01/2007 documented as of this encounter (statuses as of 02/19/2023) [address] History of Past illness Narrative* Problem Noted Date Diagnosed Date Resolved Date MEDIASTINAL SHIFT 07/04/2005 05/01/2007 documented as of this encounter (statuses as of 02/20/2023) [address] History of Past illness Narrative* Problem Noted Date Diagnosed Date Resolved Date MEDIASTINAL SHIFT 07/04/2005 05/01/2007 documented as of this encounter (statuses as of 02/24/2023) [address] History of Past illness Narrative* Problem Noted Date Diagnosed Date Resolved Date MEDIASTINAL SHIFT 07/04/2005 05/01/2007 documented as of this encounter (statuses as of 02/24/2023) [facility]03[facility]2006 History of Past illness Narrative* Problem Noted Date Diagnosed Date Resolved Date MEDIASTINAL SHIFT 07/04/2005 05/01/2007 documented as of this encounter (statuses as of 02/24/2023) [facility]2006 History of Past illness Narrative* Problem Noted Date Diagnosed Date Resolved Date MEDIASTINAL SHIFT 07/04/2005 05/01/2007 documented as of this encounter (statuses as of 03/13/2023) [facility] note* Diagnosis Bilateral leg edema- Primary Edema Left ankle pain, unspecified chronicity Obesity, Class II, BMI 35-39.9 Obesity, unspecified Right hip pain Pain in joint, pelvic region and thigh [facility] Diagnosis Right hip pain- Primary Pain in joint, pelvic region and thigh [facility] Diagnosis Neuropathy Mononeuritis of unspecified site [facility] Diagnosis Encounter for immunization- Primary Need for other specified prophylactic vaccination against single bacterial disease [facility] Diagnosis Neoplasm of skin of penis- Primary [facility] Diagnosis Dietary counseling- Primary Dietary surveillance and counseling Obesity, Class II, BMI 35-39.9 Obesity, unspecified Controlled type 2 diabetes mellitus without complication, without long-term current use of insulin ([facility]) Gastroesophageal reflux disease, unspecified whether esophagitis present Hypertension, unspecified type Hyperlipidemia, unspecified hyperlipidemia type documented [facility] this encounter [facility] Diagnosis Neoplasm of skin of penis- Primary [facility] Diagnosis Urge incontinence Type 2 diabetes mellitus with diabetic polyneuropathy, without long-term current use of insulin ([facility]) Essential hypertension, benign Neuropathy Mononeuritis of unspecified site [facility] Diagnosis Neuropathy Mononeuritis of unspecified site [facility] Diagnosis Medicare annual wellness visit, subsequent- Primary Routine general medical examination at a [facility] Type 2 diabetes mellitus with diabetic polyneuropathy, without long-term current use of insulin (HCC) Diabetic eye exam (HCC) Type II or unspecified type diabetes mellitus without mention of complication, not stated as uncontrolled Essential hypertension, benign Mixed hyperlipidemia GERD without esophagitis Esophageal reflux Coronary artery disease due to lipid rich plaque Bilateral leg edema Edema Obstructive sleep apnea syndrome Obstructive sleep apnea (adult) (pediatric) Obesity, Class II, BMI 35-39.9 Obesity, unspecified Neuropathy Mononeuritis of unspecified site Fatty liver Other chronic nonalcoholic liver disease B12 deficiency Other B-complex deficiencies Elevated PSA Elevated prostate specific antigen (PSA) Living will on file Advance directive discussed with patient Other specified counseling Memory difficulties Memory loss Ataxia Lack of coordination Urge incontinence Shuffling gait Abnormality of gait Dementia without behavioral disturbance, unspecified dementia type (HCC) Need for vaccination Need for prophylactic vaccination and inoculation against unspecified single disease [facility] Essential hypertension, benign- Primary Mixed hyperlipidemia Type 2 diabetes mellitus with diabetic polyneuropathy, without long-term current use of insulin ([facility]) [facility] Diagnosis Anemia, unspecified type- Primary Renal insufficiency Unspecified disorder of kidney and ureter Elevated PSA Elevated prostate specific antigen (PSA) [facility] Diagnosis Stage 3a chronic kidney disease (HCC) [facility] Diagnosis Neuropathy Mononeuritis of unspecified site [facility]* Diagnosis Neuropathy Mononeuritis of unspecified site [facility]* Diagnosis Type 2 diabetes mellitus with diabetic polyneuropathy, without long-term current use of insulin ([facility]) Essential hypertension, benign Neuropathy Mononeuritis of unspecified site [facility] Diagnosis Shuffling gait- Primary Abnormality of gait Memory difficulties Memory loss Chronic bilateral low back pain without sciatica Urge incontinence [facility] Diagnosis Obstructive sleep apnea syndrome- Primary Obstructive sleep apnea (adult) (pediatric) [facility] Diagnosis Spinal stenosis of lumbar region, unspecified whether neurogenic claudication present- Primary [facility]* Diagnosis Obstructive sleep apnea syndrome- Primary Obstructive sleep apnea (adult) (pediatric) [facility]* Diagnosis Memory loss- Primary Shuffling gait Abnormality of gait Spinal stenosis of lumbar region, unspecified whether neurogenic claudication present- Primary [facility] Diagnosis Spinal stenosis of lumbar region, unspecified whether neurogenic claudication present- Primary [facility] Diagnosis Urge incontinence [facility] Diagnosis Essential hypertension, benign documented [facility] this encounter [facility] Diagnosis Cognitive changes- Primary Other signs and symptoms involving cognition documented [facility] this encounter [facility] Diagnosis Spinal stenosis, lumbar region, without neurogenic claudication- Primary Spinal stenosis, lumbar region, without neurogenic claudication documented [facility] this encounter [facility] Diagnosis Pre-operative clearance- Primary Preoperative examination, unspecified Spinal stenosis, lumbar region, without neurogenic claudication documented [facility] this [facility] Diagnosis Pre-op exam- Primary Preoperative examination, unspecified Type 2 diabetes mellitus with diabetic polyneuropathy, without long-term current use of insulin (HCC) Essential hypertension, benign Mixed hyperlipidemia Coronary artery disease due to lipid rich plaque Obstructive sleep apnea syndrome Obstructive sleep apnea (adult) (pediatric) Stage 3a chronic kidney disease (HCC) Spinal stenosis, lumbar region without neurogenic claudication [M48.061 (ICD-10-CM)] Spinal stenosis, lumbar region, without neurogenic claudication documented [facility] this encounter [facility] Diagnosis Pre-op exam Preoperative examination, unspecified Spinal stenosis, lumbar region, without neurogenic claudication documented [facility] this [facility] Diagnosis Pre-operative cardiovascular examination- Primary Spinal stenosis, unspecified spinal region Essential hypertension, benign Other hyperlipidemia Quit using tobacco in remote past Encounter for other preprocedural examination FUAD (obstructive sleep apnea) Obstructive sleep apnea (adult) (pediatric) Spinal stenosis, lumbar region, without neurogenic claudication documented [facility] this encounter [facility] Diagnosis Encounter for other preprocedural examination Spinal stenosis, lumbar region, without neurogenic claudication documented [facility] this encounter [facility] Diagnosis Pre-operative clearance- Primary Preoperative examination, unspecified Spinal stenosis of lumbar region, unspecified whether neurogenic claudication present Type 2 diabetes mellitus with diabetic polyneuropathy, without long-term current use of insulin (HCC) Essential hypertension, benign Stage 3a chronic kidney disease (HCC) Spinal stenosis, lumbar region, without neurogenic claudication [facility] Diagnosis S/P laminectomy- Primary Other postprocedural status documented in this encounter [facility] Diagnosis Neuropathy Mononeuritis of unspecified site documented [facility] this encounter [facility]* Diagnosis Mixed hyperlipidemia- Primary Type 2 diabetes mellitus with diabetic polyneuropathy, without long-term current use of insulin ([facility]) Essential hypertension, benign Stage 3a chronic kidney disease ([facility]) Fatigue, unspecified type documented [facility] this encounter [facility]* Diagnosis Type 2 diabetes mellitus with diabetic polyneuropathy, without long-term current use of insulin ([facility])- Primary Diabetic eye exam ([facility]) Type II or unspecified type diabetes mellitus without mention of complication, not stated as uncontrolled Essential hypertension, benign Orthostatic hypotension Other hyperlipidemia Coronary artery disease due to lipid rich plaque GERD without esophagitis Esophageal reflux Bilateral leg edema Edema Stage 3a chronic kidney disease (HCC) Neuropathy Mononeuritis of unspecified site Obstructive sleep apnea syndrome Obstructive sleep apnea (adult) (pediatric) Obesity, Class II, BMI 35-39.9 Obesity, unspecified B12 deficiency Other B-complex deficiencies Elevated LFTs Other abnormal blood chemistry Bronchitis Bronchitis, not specified as acute or chronic Advance directive discussed with patient Other specified counseling Prostate disorder Unspecified disorder of prostate Medication management Encounter for long-term (current) use of other medications [facility] Diagnosis Obstructive sleep apnea syndrome- Primary Obstructive sleep apnea (adult) (pediatric) documented in this encounter [facility] Diagnosis S/P laminectomy- Primary Other postprocedural status Spinal stenosis of lumbar region, unspecified whether neurogenic claudication present documented [facility] this encounter [facility]* Diagnosis Lightheadedness- Primary Dizziness and giddiness Vertigo Dizziness and giddiness Dizziness Dizziness and giddiness Orthostatic hypotension documented in this [facility] Diagnosis Bilateral carotid artery stenosis Occlusion and stenosis of carotid artery without mention of cerebral infarction [facility] Diagnosis Spinal stenosis, lumbar region without neurogenic claudication- Primary S/P laminectomy Other [facility]procedural status [facility] Diagnosis Vertigo- Primary Dizziness and giddiness documented in this [facility] Diagnosis Vertigo- Primary Dizziness and giddiness Dizziness Dizziness and giddiness documented [facility] Diagnosis Spinal stenosis, lumbar region without neurogenic claudication- Primary S/P laminectomy Other postprocedural status documented in this [facility] Diagnosis Right hip pain- Primary Pain in joint, pelvic region and thigh Acute pain of right knee documented [facility] Diagnosis Spinal stenosis of lumbar region, unspecified whether neurogenic claudication present- Primary documented in this encounter [facility] Diagnosis Acute pain of right knee- Primary DDD (degenerative disc disease), lumbar Degeneration of lumbar or lumbosacral intervertebral disc [facility] Diagnosis Right hip pain- Primary Pain in joint, pelvic region and thigh Acute pain of right knee [facility] Diagnosis Right hip pain- Primary Pain in joint, pelvic region and thigh Acute pain of right knee Spinal stenosis, lumbar region without neurogenic claudication S/P laminectomy Other postprocedural status documented in this encounter [facility] Diagnosis Right hip pain- Primary Pain in joint, pelvic region and thigh Acute pain of right knee [facility] Diagnosis Right hip pain- Primary Pain in joint, pelvic region and thigh Acute pain of right knee Spinal stenosis, lumbar region without neurogenic claudication S/P laminectomy Other postprocedural status [facility] Diagnosis Essential hypertension, benign documented in this encounter [facility]* Diagnosis Type 2 diabetes mellitus with diabetic polyneuropathy, without long-term current use of insulin (HCC) Urge incontinence Essential hypertension, benign documented in this encounter [facility] Diagnosis Right hip pain- Primary Pain in joint, pelvic region and thigh Acute pain of right knee Spinal stenosis, lumbar region without neurogenic claudication S/P laminectomy Other postprocedural status documented in this encounter [facility] Diagnosis Right hip pain- Primary Pain in joint, pelvic region and thigh Acute pain of right knee Spinal stenosis, lumbar region without neurogenic claudication S/P laminectomy Other postprocedural status [facility] Diagnosis Right hip pain- Primary Pain in joint, pelvic region and thigh Acute pain of right knee Spinal stenosis, lumbar region without neurogenic claudication S/P laminectomy Other postprocedural status documented in this encounter [facility]* Diagnosis Diabetic eye exam (HCC) Type II or unspecified type diabetes mellitus without mention of complication, not stated as uncontrolled [facility] Diagnosis Neuropathy Mononeuritis of unspecified site documented in this encounter [facility]* Diagnosis Type 2 diabetes mellitus with diabetic polyneuropathy, without long-term current use of insulin (HCC)- Primary Other hyperlipidemia Essential hypertension, benign documented in this encounter [facility]* Diagnosis Abnormality of gait- Primary documented in this encounter [facility]* Diagnosis Memory difficulties- Primary Memory loss Spinal stenosis of lumbar region, unspecified whether neurogenic claudication present Encounter for immunization- Primary Need for other specified prophylactic vaccination against single bacterial disease documented in this encounter [facility]* Diagnosis Medicare annual wellness visit, subsequent- Primary Routine general medical examination at a health care facility Type 2 diabetes mellitus with diabetic polyneuropathy, without long-term current use of insulin (HCC) Diabetic eye exam (HCC) Type II or unspecified type diabetes mellitus without mention of complication, not stated as uncontrolled Essential hypertension, benign Mixed hyperlipidemia GERD without esophagitis Esophageal reflux Coronary artery disease due to lipid rich plaque Bilateral carotid artery stenosis Occlusion and stenosis of carotid artery without mention of cerebral infarction Bilateral leg edema Edema Stage 3a chronic kidney disease (HCC) Urge incontinence B12 deficiency Other B-complex deficiencies SOLER (nonalcoholic steatohepatitis) Other chronic nonalcoholic liver disease Neuropathy Mononeuritis of unspecified site Obesity, Class II, BMI 35-39.9 Obesity, unspecified Obstructive sleep apnea syndrome Obstructive sleep apnea (adult) (pediatric) Elevated PSA Elevated prostate specific antigen (PSA) Cervical myelopathy (HCC) Cervical spondylosis with myelopathy Anemia of chronic disease Anemia of other chronic disease Memory difficulties Memory loss Advance directive discussed with patient Other specified counseling Hypomagnesemia Disorders of magnesium metabolism documented in this encounter [facility]* Diagnosis Memory difficulties Memory loss Shuffling gait Abnormality of gait documented [facility] this [facility] Diagnosis Shuffling gait Abnormality of gait Chronic bilateral low back pain without sciatica Urge incontinence documented in this [facility]* Diagnosis Essential hypertension, benign- Primary documented in this encounter [facility] for referral (narrative)* Outpatient Procedure (Routine) - Closed Specialty Diagnoses / Procedures Referred By Contac t Referred To Contact [facility] Diagnoses Pre-op exam Procedures ECG COMPLETE ECG ROUTINE ECG W/LEAST 12 LDS W/I&R Basilia Wynn APRN.BAG PRESSER [address] [place] [address] [facility] [place] [address] [place] [address] Referral ID Status Reason Start Date Expiration Date V isits Requested Visits Authorized [id number] Closed Auto-Generate d Referral 06/28/2022 06/28/2023 1 1 [facility] for referral (narrative)* Diagnostic Procedure Only (Routine) - Authorized Specialty Diagnoses / Procedures Referred By Contac t Referred To Contact [facility]ULAR [facility] Diagnoses Encounter for other preprocedural examination Procedures NM CARDIAC PERF STRESS/PHARM MYOCARDIAL SPECT MULTIPLE STUDIES Kim Alonzo MD [address] [place] [address] Molecular [facility] Functional Imaging [address] [place] [address] Referral ID Status Reason Start Date Expiration Date Visits Requested Visits Authorized [id number] Authorized Auto-Generat ed Referral 06/29/2022 07/29/2023 1 1 [facility] for referral (narrative)* Diagnostic Procedure Only (Routine) - Closed Specialty Diagnoses / Procedures Referred By Contac t Referred To Contact [facility] Diagnoses Encounter for other preprocedural examination Procedures NM CARDIAC PERF STRESS/PHARM MYOCARDIAL SPECT MULTIPLE STUDIES Kim Alonzo MD [address], [address] [place] [address] Molecular [facility] [address] [place] [address] Referral ID Status Reason Start Date Expiration Date V isits Requested Visits Authorized [id number] Closed Auto-Generate d Referral 06/29/2022 07/29/2023 1 1 [facility] for referral (narrative)* Outpatient Procedure (Routine) - Pending Review Specialty Diagnoses / Procedures Referred By Contac t Referred To Contact [facility] [place] Diagnoses Lightheadedness Dizziness Orthostatic hypotension Procedures US CAROTID ARTERIES DAMARIS VAS LAB DUPLEX SCAN EXTRACRANIAL ART COMPL BI STUDY Lola Romo PA-C [address] [place] [address] [facility] [address] [address] Referral ID Status Reason Start Date Expiration Date Visits Requested Visits Authorized [id number] Pending Review Auto-Generat ed Referral 09/05/2022 09/05/2023 1 1 * Physical Therapy (Routine) - Pending Review Specialty Diagnoses / Procedures Referred By Contac t Referred To Contact [facility] Diagnoses Vertigo Procedures CONSULT TO PHYSICAL THERAPY PHYSICAL THERAPY EVALUATION HIGH COMPLEX 45 MINS Lola Romo PA-C [address] [place] [address] [facility] [address] [address] Referral ID Status Reason Start Date Expiration Date Visits Requested Visits Authorized [id number] Pending Review Auto-Generat ed Referral 09/05/2022 09/05/2023 1 1 * Outpatient Procedure (Routine) - Authorized Specialty Diagnoses / Procedures Referred By Contac t Referred To Contact [facility] Diagnoses Lightheadedness Dizziness Orthostatic hypotension Procedures ECHO ECHO TTHRC R-T 2D W/WOM-MODE COMPL SPEC&COLR D Lola Romo PA-C [address] [place] [address] [address] Referral ID Status Reason Start Date Expiration Date Visits Requested Visits Authorized [id number] Authorized Auto-Generat ed Referral 09/05/2022 09/05/2023 1 1 [facility] for visit Narrative* Diagnostic Procedure Only (Routine) - Closed Specialty Diagnoses / Procedures Referred By Claus t Referred To Contact [facility]AL [facility]AG[facility] Diagnoses Encounter for other preprocedural examination Procedures NM CARDIAC PERF STRESS/PHARM MYOCARDIAL SPECT MULTIPLE STUDIES Kim Alonzo MD [address] [facility] [address] [place] [address] [facility] [address] [id number] Referral ID Status Reason Start Date Expiration Date V isits Requested Visits Authorized [id number] Closed Auto-Generate d Referral 06/29/2022 07/29/2023 1 1 [facility] Reason for Referral Specialty Diagnoses / Procedures Referred By Claus t Referred To Contact Nutrition Diagnoses Obesity, Class II, BMI 35-39.9 Procedures CONSULT TO NUTRITION THERAPY OFFICE/OUTPATIENT [facility] MDM 60-74 MINUTES Yosef Whitaker MD [facility] [place] [address] Referral ID Status Reason Start Date Expiration Date Visits Requested Visits Authorized [id number] Pending Review PCP Requested Referral 08/28/2021 08/28/2022 1 1 Specialty Diagnoses / Procedures Referred By Claus t Referred To Contact [facility] Diagnoses Right hip pain Procedures CONSULT TO PHYSICAL THERAPY PHYSICAL THERAPY EVALUATION HIGH COMPLEX 45 MINS Yosef Whitaker MD [address] [place] [address] [facility] [place] [address] [place] [address] Referral ID Status Reason Start Date Expiration Date Visits Requested Visits Authorized [id number] Pending Review Auto-Generat ed Referral 08/28/2021 08/28/2022 1 1 Specialty Diagnoses / Procedures Referred By Claus t Referred To Contact XR IMAGING Diagnoses Right hip pain Procedures XR HIP GENERAL 3V PELV/AP/LAT RIGHT RADEX HIP UNILATERAL WITH PELVIS 2-3 VIEWS Yosef Whitaker MD [address] [place] [address] Xr Imaging Referral ID Status Reason Start Date Expiration Date V isits Requested Visits Authorized [id number] Closed Auto-Generate d Referral 08/28/2021 09/27/2022 1 1 Specialty Diagnoses / Procedures Referred By Contac t Referred To Contact Urology Diagnoses Neoplasm of skin of penis Procedures CONSULT TO UROLOGY OFFICE/OUTPATIENT [facility] HIGH MDM 60-74 MINUTES Yosef Whitaker MD [address] [place] [address] Referral ID Status Reason Start Date Expiration Date Visits Requested Visits Authorized [id number] Pending Review PCP Requested Referral 10/06/2021 10/06/2022 1 1 Specialty Diagnoses / Procedures Referred By Contac t Referred To Contact CT IMAGING Diagnoses Memory difficulties Ataxia Urge incontinence Shuffling gait Dementia without behavioral disturbance, unspecified dementia type (HCC) Procedures CT BRAIN WO IVCON CT HEAD/BRAIN W/O CONTRAST MATERIAL Yosef Whitaker MD [address] [place] [address] Ct Imaging Referral ID Status Reason Start Date Expiration Date Visits Requested Visits Authorized [id number] Authorized Auto-Generat ed Referral 01/01/2022 01/31/2023 1 1 Specialty Diagnoses / Procedures Referred By Contac t Referred To Contact MR IMAGING Diagnoses Shuffling gait Chronic bilateral low back pain without sciatica Urge incontinence Procedures MRI LUMBAR SPINE WO IVCON MRI SPINAL CANAL LUMBAR W/O CONTRAST MATERIAL Margot Bravo MD [address] [facility] [place] [address] Mr Imaging Referral ID Status Reason Start Date Expiration Date Visits Requested Visits Authorized [id number] Authorized Auto-Generat ed Referral 03/28/2022 04/27/2023 1 1 Specialty Diagnoses / Procedures Referred By Contac t Referred To Contact MR IMAGING Diagnoses Memory difficulties Shuffling gait Procedures MRI BRAIN WO IVCON MRI BRAIN BRAIN STEM W/O CONTRAST MATERIAL Margot Bravo MD [address] [place] [address] Mr Imaging Referral ID Status Reason Start Date Expiration Date Visits Requested Visits Authorized [id number] Authorized Auto-Generat ed Referral 03/28/2022 04/27/2023 1 1 Specialty Diagnoses / Procedures Referred By Contac t Referred To Contact Diagnoses Obstructive sleep apnea syndrome Procedures CONSULT TO SLEEP MEDICINE - ADULT OFFICE/OUTPATIENT [facility] 60-74 MINUTES Yosef Whitaker MD [address] [place] [address] Referral ID Status Reason Start Date Expiration Date Visits Requested Visits Authorized [id number] Pending Review PCP Requested Referral 2 03/12/2023 1 1 Specialty Diagnoses / Procedures Referred By Contac t Referred To Contact Neurosurgery Diagnoses Spinal stenosis of lumbar region, unspecified whether neurogenic claudication present Procedures CONSULT TO NEUROSURGERY OFFICE/OUTPATIENT [facility] 60-74 MINUTES Margot Bravo MD [address] [facility] [place] [address] Referral ID Status Reason Start Date Expiration Date Visits Requested Visits Authorized [id number] Pending Review PCP Requested Referral 05/07/2022 05/07/2023 1 1 Specialty Diagnoses / Procedures Referred By Contac t Referred To Contact [facility] Diagnoses Spinal stenosis of lumbar region, unspecified whether neurogenic claudication present Procedures CONSULT TO PHYSICAL THERAPY PHYSICAL THERAPY EVALUATION HIGH COMPLEX 45 MINS Stephanie [place] I, MD [address] [place] [address] [facility] [place] [address] [place] [address] Referral ID Status Reason Start Date Expiration Date Visits Requested Visits Authorized [id number] Pending Review Auto-Generat ed Referral 06/11/2022 06/11/2023 1 1 Specialty Diagnoses / Procedures Referred By Contac t Referred To Contact XR IMAGING Diagnoses Spinal stenosis of lumbar region, unspecified whether neurogenic claudication present Procedures XR LUMBAR MOTION 4V AP/LAT/ FLEX/EXT RADEX SPINE LUMBOSACRAL MINIMUM 4 VIEWS Stephanie Simpson I, MD [address] [facility] [place] [address] Xr Imaging Referral ID Status Reason Start Date Expiration Date V isits Requested Visits Authorized [id number] Closed Auto-Generate d Referral 05/21/2022 06/20/2023 1 1 Specialty Diagnoses / Procedures Referred By Contac t Referred To Contact Cardiology Diagnoses Pre-operative clearance Procedures CONSULT TO CARDIOLOGY OFFICE/OUTPATIENT [facility] MDM 60-74 MINUTES Stephanie Simpson I, MD [address] [facility] [place] [address] Referral ID Status Reason Start Date Expiration Date Visits Requested Visits Authorized [id number] Pending Review PCP Requested Referral 06/26/2022 06/26/2023 1 1 Specialty Diagnoses / Procedures Referred By Contac t Referred To Contact [facility] Diagnoses S/P laminectomy Spinal stenosis of lumbar region, unspecified whether neurogenic claudication present Procedures CONSULT TO PHYSICAL THERAPY PHYSICAL THERAPY EVALUATION HIGH COMPLEX 45 MINS Stephanie Simpson I, MD [address] [facility] [place] [address] [facility] [address] [address] Referral ID Status Reason Start Date Expiration Date Visits Requested Visits Authorized [id number] Pending Review Auto-Generat ed Referral 08/27/2022 08/27/2023 1 1 Specialty Diagnoses / Procedures Referred By Contac t Referred To Contact [facility] Diagnoses Spinal stenosis, lumbar region without neurogenic claudication S/P laminectomy Vertigo Procedures PT REHAB FOLLOW UP ORDER THERAPEUTIC EXERCISES RE, EA 15 MIN. Nicole Matthew, PT [facility] [address] [address] Referral ID Status Reason Start Date Expiration Date Visits Requested Visits Authorized [id number] Pending Review PCP Requested Referral Auto-Generate d Referral 10/09/2022 01/07/2023 1 1 Specialty Diagnoses / Procedures Referred By Contac t Referred To Contact [facility] Diagnoses Right hip pain Acute pain of right knee Procedures CONSULT TO PHYSICAL THERAPY PHYSICAL THERAPY EVALUATION HIGH COMPLEX 45 MINS Richard Schmidt APRN.BAG PRESSER [address] [place] [address] [facility] [place] [address] [place] [address] Referral ID Status Reason Start Date Expiration Date Visits Requested Visits Authorized [id number] Pending Review Auto-Generat ed Referral 10/16/2022 10/16/2023 1 1 Specialty Diagnoses / Procedures Referred By Contac t Referred To Contact XR IMAGING Diagnoses Acute pain of right knee Procedures XR KNEE GENERAL 4V AP BOTH/PA BOTH/LAT/MERC RIGHT RADIOLOGIC EXAM KNEE COMPLETE 4/MORE VIEWS Richard Schmidt APRN.BAG PRESSER [address] [place] [address] Xr Imaging Referral ID Status Reason Start Date Expiration Date V isits Requested Visits Authorized [id number] Closed Auto-Generate d Referral 10/16/2022 11/15/2023 1 1 Specialty Diagnoses / Procedures Referred By Contac t Referred To Contact XR IMAGING Diagnoses Right hip pain Procedures XR HIP GENERAL 3V PELV/AP/LAT RIGHT RADEX HIP UNILATERAL WITH PELVIS 2-3 VIEWS Richard Schmidt APRN.BAG PRESSER [address] [place] [address] Xr Imaging Referral ID Status Reason Start Date Expiration Date V isits Requested Visits Authorized [id number] Closed Auto-Generate d Referral 10/16/2022 11/15/2023 1 1 Specialty Diagnoses / Procedures Referred By Contac t Referred To Contact Orthopedics Diagnoses Acute pain of right knee DDD (degenerative disc disease), lumbar Procedures CONSULT TO ORTHOPAEDICS Richard Schmidt, ALFREDO.BAG PRESSER [address] [place] [address] Bharath Hines Jr., [address] [address] Referral ID Status Reason Start Date Expiration Date Visits Requested Visits Authorized [id number] Ref Not Required PCP Requested Referral 10/18/2022 10/18/2023 1 1 Specialty Diagnoses / Procedures Referred By Contac t Referred To Contact MR IMAGING Diagnoses Memory difficulties Shuffling gait Procedures MRI BRAIN WO IVCON MRI BRAIN BRAIN STEM W/O CONTRAST MATERIAL Margot Bravo MD [address] [place] [address] [place] [address] Referral ID Status Reason Start Date Expiration Date V isits Requested Visits Authorized [id number] Closed Auto-Generate d Referral 03/28/2022 04/27/2023 1 1 Specialty Diagnoses / Procedures Referred By Contac t Referred To Contact MR IMAGING Diagnoses Shuffling gait Chronic bilateral low back pain without sciatica Urge incontinence Procedures MRI LUMBAR SPINE WO IVCON MRI SPINAL CANAL LUMBAR W/O CONTRAST MATERIAL Margot Bravo MD [address] [place] [address] [place] [address] Referral ID Status Reason Start Date Expiration Date V isits Requested Visits Authorized [id number] Closed Auto-Generate d Referral 03/28/2022 04/27/2023 1 1 Advance Directives No Advanced Directives Records FoundDocuments on File Type Date 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 Advance Directive(s) 05/16/2020 8:13 AM Advance Directive(s) 05/16/2020 8:28 AM Advance Directive(s) 05/09/2020 9:48 AM Advance Directive(s) 04/21/2020 9:38 AM Advance Directive(s) 07/29/2017 12:28 PM Advance Directive(s) 09/14/2016 8:23 AM Advance Directive(s) 05/23/2011 12:00 AM Advance Directive(s) 04/19/2008 8:05 PM Advance Directive(s) 06/06/2006 12:00 AM Documents on File Type Date 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 Advance Directive(s) 05/16/2020 8:13 AM Advance Directive(s) 05/16/2020 8:28 AM Advance Directive(s) 05/09/2020 9:48 AM Advance Directive(s) 04/21/2020 9:38 AM Advance Directive(s) 07/29/2017 12:28 PM Advance Directive(s) 09/14/2016 8:23 AM Advance Directive(s) 05/23/2011 12:00 AM Advance Directive(s) 04/19/2008 8:05 PM Advance Directive(s) 06/06/2006 12:00 AM Documents on File Type Date 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 Advance Directive(s) 05/23/2011 Advance Directive(s) 04/19/2008 8:05 PM Advance Directive(s) 06/06/2006 Documents on File Type Date 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 Advance Directive(s) 05/23/2011 Advance Directive(s) 04/19/2008 8:05 PM Advance Directive(s) 06/06/2006 Documents on File Type Date 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 Advance Directive(s) 07/02/2022 7:15 AM Advance Directive(s) 05/23/2011 Advance Directive(s) 04/19/2008 8:05 PM Advance Directive(s) 06/06/2006 Documents on File Type Date 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 Wait 10-20 seconds, then administer the radionuclide myocardial perfusion imaging agent. Given 07/02/2022 8:30 AM EDT 0.4 mg Summary Purpose Family History No Family History Records FoundNo Family History Records FoundNo Family History Records Found Additional Source Comments Source Comments (unrecognize d section and content) In the event this informatio n is protected by the Federal Confidentiality of Alcohol and Drug Abuse Patient Records regulations: The Federal rules restrict any use of the information to criminally investigate or prosecute any alcohol or drug abuse patient.[facility] the event this information is protected by the Federal Confidentiality of Alcohol and Drug Abuse Patient Records regulations: The Federal rules restrict any use of the information to criminally investigate or prosecute any alcohol or drug abuse patient.[facility] the event this information is protected by the Federal Confidentiality of Alcohol and Drug Abuse Patient Records regulations: The Federal rules restrict any use of the information to criminally investigate or prosecute any alcohol or drug abuse patient.[facility]In the event this information is protected by the Federal Confidentiality of Alcohol and Drug Abuse Patient Records regulations: The Federal rules restrict any use of the information to criminally investigate or prosecute any alcohol or drug abuse patient.[facility]In the event this information is protected by the Federal Confidentiality of Alcohol and Drug Abuse Patient Records regulations: The Federal rules restrict any use of the information to criminally investigate or prosecute any alcohol or drug abuse patient.[facility]In the event this information is protected by the Federal Confidentiality of Alcohol and Drug Abuse Patient Records regulations: The Federal rules restrict any use of the information to criminally investigate or prosecute any alcohol or drug abuse patient.[facility] CampusIn the event this information is protected by the Federal Confidentiality of Alcohol and Drug Abuse Patient Records regulations: The Federal rules restrict any use of the information to criminally investigate or prosecute any alcohol or drug abuse patient.[facility]In the event this information is protected by the Federal Confidentiality of Alcohol and Drug Abuse Patient Records regulations: The Federal rules restrict any use of the information to criminally investigate or prosecute any alcohol or drug abuse patient.[facility] CampusIn the event this information is protected by the Federal Confidentiality of Alcohol and Drug Abuse Patient Records regulations: The Federal rules restrict any use of the information to criminally investigate or prosecute any alcohol or drug abuse patient.[facility] CampusIn the event this information is protected by the Federal Confidentiality of Alcohol and Drug Abuse Patient Records regulations: The Federal rules restrict any use of the information to criminally investigate or prosecute any alcohol or drug abuse patient.[facility] CampusIn the event this information is protected by the Federal Confidentiality of Alcohol and Drug Abuse Patient Records regulations: The Federal rules restrict any use of the information to criminally investigate or prosecute any alcohol or drug abuse patient.[facility] CampusIn the event this information is protected by the Federal Confidentiality of Alcohol and Drug Abuse Patient Records regulations: The Federal rules restrict any use of the information to criminally investigate or prosecute any alcohol or drug abuse patient.[facility] CampusIn the event this information is protected by the Federal Confidentiality of Alcohol and Drug Abuse Patient Records regulations: The Federal rules restrict any use of the information to criminally investigate or prosecute any alcohol or drug abuse patient.[facility] CampusIn the event this information is protected by the Federal Confidentiality of Alcohol and Drug Abuse Patient Records regulations: The Federal rules restrict any use of the information to criminally investigate or prosecute any alcohol or drug abuse patient.[facility] CampusIn the event this information is protected by the Federal Confidentiality of Alcohol and Drug Abuse Patient Records regulations: The Federal rules restrict any use of the information to criminally investigate or prosecute any alcohol or drug abuse patient.[facility] CampusIn the event this information is protected by the Federal Confidentiality of Alcohol and Drug Abuse Patient Records regulations: The Federal rules restrict any use of the information to criminally investigate or prosecute any alcohol or drug abuse patient.[facility] CampusIn the event this information is protected by the Federal Confidentiality of Alcohol and Drug Abuse Patient Records regulations: The Federal rules restrict any use of the information to criminally investigate or prosecute any alcohol or drug abuse patient.[facility] CampusIn the event this information is protected by the Federal Confidentiality of Alcohol and Drug Abuse Patient Records regulations: The Federal rules restrict any use of the information to criminally investigate or prosecute any alcohol or drug abuse patient.[facility] CampusIn the event this information is protected by the Federal Confidentiality of Alcohol and Drug Abuse Patient Records regulations: The Federal rules restrict any use of the information to criminally investigate or prosecute any alcohol or drug abuse patient.[facility] CampusIn the event this information is protected by the Federal Confidentiality of Alcohol and Drug Abuse Patient Records regulations: The Federal rules restrict any use of the information to criminally investigate or prosecute any alcohol or drug abuse patient.[facility] CampusIn the event this information is protected by the Federal Confidentiality of Alcohol and Drug Abuse Patient Records regulations: The Federal rules restrict any use of the information to criminally investigate or prosecute any alcohol or drug abuse patient.[facility] CampusIn the event this information is protected by the Federal Confidentiality of Alcohol and Drug Abuse Patient Records regulations: The Federal rules restrict any use of the information to criminally investigate or prosecute any alcohol or drug abuse patient.[facility] CampusIn the event this information is protected by the Federal Confidentiality of Alcohol and Drug Abuse Patient Records regulations: The Federal rules restrict any use of the information to criminally investigate or prosecute any alcohol or drug abuse patient.[facility] CampusIn the event this information is protected by the Federal Confidentiality of Alcohol and Drug Abuse Patient Records regulations: The Federal rules restrict any use of the information to criminally investigate or prosecute any alcohol or drug abuse patient.[facility] CampusIn the event this information is protected by the Federal Confidentiality of Alcohol and Drug Abuse Patient Records regulations: The Federal rules restrict any use of the information to criminally investigate or prosecute any alcohol or drug abuse patient.[facility] CampusIn the event this information is protected by the Federal Confidentiality of Alcohol and Drug Abuse Patient Records regulations: The Federal rules restrict any use of the information to criminally investigate or prosecute any alcohol or drug abuse patient.[facility] CampusIn the event this information is protected by the Federal Confidentiality of Alcohol and Drug Abuse Patient Records regulations: The Federal rules restrict any use of the information to criminally investigate or prosecute any alcohol or drug abuse patient.[facility] CampusIn the event this information is protected by the Federal Confidentiality of Alcohol and Drug Abuse Patient Records regulations: The Federal rules restrict any use of the information to criminally investigate or prosecute any alcohol or drug abuse patient.[facility] CampusIn the event this information is protected by the Federal Confidentiality of Alcohol and Drug Abuse Patient Records regulations: The Federal rules restrict any use of the information to criminally investigate or prosecute any alcohol or drug abuse patient.[facility] CampusIn the event this information is protected by the Federal Confidentiality of Alcohol and Drug Abuse Patient Records regulations: The Federal rules restrict any use of the information to criminally investigate or prosecute any alcohol or drug abuse patient.[facility] CampusIn the event this information is protected by the Federal Confidentiality of Alcohol and Drug Abuse Patient Records regulations: The Federal rules restrict any use of the information to criminally investigate or prosecute any alcohol or drug abuse patient.[facility] CampusIn the event this information is protected by the Federal Confidentiality of Alcohol and Drug Abuse Patient Records regulations: The Federal rules restrict any use of the information to criminally investigate or prosecute any alcohol or drug abuse patient.[facility] CampusIn the event this information is protected by the Federal Confidentiality of Alcohol and Drug Abuse Patient Records regulations: The Federal rules restrict any use of the information to criminally investigate or prosecute any alcohol or drug abuse patient.[facility] CampusIn the event this information is protected by the Federal Confidentiality of Alcohol and Drug Abuse Patient Records regulations: The Federal rules restrict any use of the information to criminally investigate or prosecute any alcohol or drug abuse patient.[facility] CampusIn the event this information is protected by the Federal Confidentiality of Alcohol and Drug Abuse Patient Records regulations: The Federal rules restrict any use of the information to criminally investigate or prosecute any alcohol or drug abuse patient.[facility] CampusIn the event this information is protected by the Federal Confidentiality of Alcohol and Drug Abuse Patient Records regulations: The Federal rules restrict any use of the information to criminally investigate or prosecute any alcohol or drug abuse patient.[facility] CampusIn the event this information is protected by the Federal Confidentiality of Alcohol and Drug Abuse Patient Records regulations: The Federal rules restrict any use of the information to criminally investigate or prosecute any alcohol or drug abuse patient.[facility] CampusIn the event this information is protected by the Federal Confidentiality of Alcohol and Drug Abuse Patient Records regulations: The Federal rules restrict any use of the information to criminally investigate or prosecute any alcohol or drug abuse patient.[facility] CampusIn the event this information is protected by the Federal Confidentiality of Alcohol and Drug Abuse Patient Records regulations: The Federal rules restrict any use of the information to criminally investigate or prosecute any alcohol or drug abuse patient.[facility] CampusIn the event this information is protected by the Federal Confidentiality of Alcohol and Drug Abuse Patient Records regulations: The Federal rules restrict any use of the information to criminally investigate or prosecute any alcohol or drug abuse patient.[facility] CampusIn the event this information is protected by the Federal Confidentiality of Alcohol and Drug Abuse Patient Records regulations: The Federal rules restrict any use of the information to criminally investigate or prosecute any alcohol or drug abuse patient.[facility] CampusIn the event this information is protected by the Federal Confidentiality of Alcohol and Drug Abuse Patient Records regulations: The Federal rules restrict any use of the information to criminally investigate or prosecute any alcohol or drug abuse patient.[facility] CampusIn the event this information is protected by the Federal Confidentiality of Alcohol and Drug Abuse Patient Records regulations: The Federal rules restrict any use of the information to criminally investigate or prosecute any alcohol or drug abuse patient.[facility] CampusIn the event this information is protected by the Federal Confidentiality of Alcohol and Drug Abuse Patient Records regulations: The Federal rules restrict any use of the information to criminally investigate or prosecute any alcohol or drug abuse patient.[facility] CampusIn the event this information is protected by the Federal Confidentiality of Alcohol and Drug Abuse Patient Records regulations: The Federal rules restrict any use of the information to criminally investigate or prosecute any alcohol or drug abuse patient.[facility] CampusIn the event this information is protected by the Federal Confidentiality of Alcohol and Drug Abuse Patient Records regulations: The Federal rules restrict any use of the information to criminally investigate or prosecute any alcohol or drug abuse patient.[facility] CampusIn the event this information is protected by the Federal Confidentiality of Alcohol and Drug Abuse Patient Records regulations: The Federal rules restrict any use of the information to criminally investigate or prosecute any alcohol or drug abuse patient.[facility] CampusIn the event this information is protected by the Federal Confidentiality of Alcohol and Drug Abuse Patient Records regulations: The Federal rules restrict any use of the information to criminally investigate or prosecute any alcohol or drug abuse patient.[facility] CampusIn the event this information is protected by the Federal Confidentiality of Alcohol and Drug Abuse Patient Records regulations: The Federal rules restrict any use of the information to criminally investigate or prosecute any alcohol or drug abuse patient.[facility] CampusIn the event this information is protected by the Federal Confidentiality of Alcohol and Drug Abuse Patient Records regulations: The Federal rules restrict any use of the information to criminally investigate or prosecute any alcohol or drug abuse patient.[facility] CampusIn the event this information is protected by the Federal Confidentiality of Alcohol and Drug Abuse Patient Records regulations: The Federal rules restrict any use of the information to criminally investigate or prosecute any alcohol or drug abuse patient.[facility] CampusIn the event this information is protected by the Federal Confidentiality of Alcohol and Drug Abuse Patient Records regulations: The Federal rules restrict any use of the information to criminally investigate or prosecute any alcohol or drug abuse patient.[facility] CampusIn the event this information is protected by the Federal Confidentiality of Alcohol and Drug Abuse Patient Records regulations: The Federal rules restrict any use of the information to criminally investigate or prosecute any alcohol or drug abuse patient.[facility] CampusIn the event this information is protected by the Federal Confidentiality of Alcohol and Drug Abuse Patient Records regulations: The Federal rules restrict any use of the information to criminally investigate or prosecute any alcohol or drug abuse patient.[facility] CampusIn the event this information is protected by the Federal Confidentiality of Alcohol and Drug Abuse Patient Records regulations: The Federal rules restrict any use of the information to criminally investigate or prosecute any alcohol or drug abuse patient.[facility] CampusIn the event this information is protected by the Federal Confidentiality of Alcohol and Drug Abuse Patient Records regulations: The Federal rules restrict any use of the information to criminally investigate or prosecute any alcohol or drug abuse patient.[facility] CampusIn the event this information is protected by the Federal Confidentiality of Alcohol and Drug Abuse Patient Records regulations: The Federal rules restrict any use of the information to criminally investigate or prosecute any alcohol or drug abuse patient.[facility] CampusIn the event this information is protected by the Federal Confidentiality of Alcohol and Drug Abuse Patient Records regulations: The Federal rules restrict any use of the information to criminally investigate or prosecute any alcohol or drug abuse patient.[facility] CampusIn the event this information is protected by the Federal Confidentiality of Alcohol and Drug Abuse Patient Records regulations: The Federal rules restrict any use of the information to criminally investigate or prosecute any alcohol or drug abuse patient.[facility]In the event this information is protected by the Federal Confidentiality of Alcohol and Drug Abuse Patient Records regulations: The Federal rules restrict any use of the information to criminally investigate or prosecute any alcohol or drug abuse patient.[facility] CampusIn the event this information is protected by the Federal Confidentiality of Alcohol and Drug Abuse Patient Records regulations: The Federal rules restrict any use of the information to criminally investigate or prosecute any alcohol or drug abuse patient.[facility] CampusIn the event this information is protected by the Federal Confidentiality of Alcohol and Drug Abuse Patient Records regulations: The Federal rules restrict any use of the information to criminally investigate or prosecute any alcohol or drug abuse patient.[facility] CampusIn the event this information is protected by the Federal Confidentiality of Alcohol and Drug Abuse Patient Records regulations: The Federal rules restrict any use of the information to criminally investigate or prosecute any alcohol or drug abuse patient.[facility] CampusIn the event this information is protected by the Federal Confidentiality of Alcohol and Drug Abuse Patient Records regulations: The Federal rules restrict any use of the information to criminally investigate or prosecute any alcohol or drug abuse patient.[facility] CampusIn the event this information is protected by the Federal Confidentiality of Alcohol and Drug Abuse Patient Records regulations: The Federal rules restrict any use of the information to criminally investigate or prosecute any alcohol or drug abuse patient.[facility] CampusIn the event this information is protected by the Federal Confidentiality of Alcohol and Drug Abuse Patient Records regulations: The Federal rules restrict any use of the information to criminally investigate or prosecute any alcohol or drug abuse patient.[facility] CampusIn the event this information is protected by the Federal Confidentiality of Alcohol and Drug Abuse Patient Records regulations: The Federal rules restrict any use of the information to criminally investigate or prosecute any alcohol or drug abuse patient.[facility] CampusIn the event this information is protected by the Federal Confidentiality of Alcohol and Drug Abuse Patient Records regulations: The Federal rules restrict any use of the information to criminally investigate or prosecute any alcohol or drug abuse patient.[facility] CampusIn the event this information is protected by the Federal Confidentiality of Alcohol and Drug Abuse Patient Records regulations: The Federal rules restrict any use of the information to criminally investigate or prosecute any alcohol or drug abuse patient.[facility] CampusIn the event this information is protected by the Federal Confidentiality of Alcohol and Drug Abuse Patient Records regulations: The Federal rules restrict any use of the information to criminally investigate or prosecute any alcohol or drug abuse patient.[facility] CampusIn the event this information is protected by the Federal Confidentiality of Alcohol and Drug Abuse Patient Records regulations: The Federal rules restrict any use of the information to criminally investigate or prosecute any alcohol or drug abuse patient.[facility] CampusIn the event this information is protected by the Federal Confidentiality of Alcohol and Drug Abuse Patient Records regulations: The Federal rules restrict any use of the information to criminally investigate or prosecute any alcohol or drug abuse patient.[facility] CampusIn the event this information is protected by the Federal Confidentiality of Alcohol and Drug Abuse Patient Records regulations: The Federal rules restrict any use of the information to criminally investigate or prosecute any alcohol or drug abuse patient.[facility] CampusIn the event this information is protected by the Federal Confidentiality of Alcohol and Drug Abuse Patient Records regulations: The Federal rules restrict any use of the information to criminally investigate or prosecute any alcohol or drug abuse patient.[facility] CampusIn the event this information is protected by the Federal Confidentiality of Alcohol and Drug Abuse Patient Records regulations: The Federal rules restrict any use of the information to criminally investigate or prosecute any alcohol or drug abuse patient.[facility] CampusIn the event this information is protected by the Federal Confidentiality of Alcohol and Drug Abuse Patient Records regulations: The Federal rules restrict any use of the information to criminally investigate or prosecute any alcohol or drug abuse patient.[facility] CampusIn the event this information is protected by the Federal Confidentiality of Alcohol and Drug Abuse Patient Records regulations: The Federal rules restrict any use of the information to criminally investigate or prosecute any alcohol or drug abuse patient.[facility] CampusIn the event this information is protected by the Federal Confidentiality of Alcohol and Drug Abuse Patient Records regulations: The Federal rules restrict any use of the information to criminally investigate or prosecute any alcohol or drug abuse patient.[facility] CampusIn the event this information is protected by the Federal Confidentiality of Alcohol and Drug Abuse Patient Records regulations: The Federal rules restrict any use of the information to criminally investigate or prosecute any alcohol or drug abuse patient.[facility] CampusIn the event this information is protected by the Federal Confidentiality of Alcohol and Drug Abuse Patient Records regulations: The Federal rules restrict any use of the information to criminally investigate or prosecute any alcohol or drug abuse patient.[facility] CampusIn the event this information is protected by the Federal Confidentiality of Alcohol and Drug Abuse Patient Records regulations: The Federal rules restrict any use of the information to criminally investigate or prosecute any alcohol or drug abuse patient.[facility] CampusIn the event this information is protected by the Federal Confidentiality of Alcohol and Drug Abuse Patient Records regulations: The Federal rules restrict any use of the information to criminally investigate or prosecute any alcohol or drug abuse patient.[facility] CampusIn the event this information is protected by the Federal Confidentiality of Alcohol and Drug Abuse Patient Records regulations: The Federal rules restrict any use of the information to criminally investigate or prosecute any alcohol or drug abuse patient.[facility] the event this information is protected by the Federal Confidentiality of Alcohol and Drug Abuse Patient Records regulations: The Federal rules restrict any use of the information to criminally investigate or prosecute any alcohol or drug abuse patient.[facility] Campus[facility] the event this information is protected by the Federal Confidentiality of Alcohol and Drug Abuse Patient Records regulations: The Federal rules restrict any use of the information to criminally investigate or prosecute any alcohol or drug abuse patient.[facility] CampusIn the event this information is protected by the Federal Confidentiality of Alcohol and Drug Abuse Patient Records regulations: The Federal rules restrict any use of the information to criminally investigate or prosecute any alcohol or drug abuse patient.[facility] CampusIn the event this information is protected by the Federal Confidentiality of Alcohol and Drug Abuse Patient Records regulations: The Federal rules restrict any use of the information to criminally investigate or prosecute any alcohol or drug abuse patient.[facility] CampusIn the event this information is protected by the Federal Confidentiality of Alcohol and Drug Abuse Patient Records regulations: The Federal rules restrict any use of the information to criminally investigate or prosecute any alcohol or drug abuse patient.[facility] Reason for Visit (unrecogniz ed section and content) Specialty Diagnoses / Procedures Referred By Claus reyes Referred To Contact MR IMAGING Diagnoses Cervical myelopathy (HCC) Procedures MRI CERVICAL SPINE WO IVCON MRI SPINAL CANAL CERVICAL W/O CONTRAST MATRL Stephanie Simpson I, MD [address] [place] [address] Mr Imaging [place] [address] Referral ID Status Reason Start Date Expiration Date V isits Requested Visits Authorized [id number] Closed Auto-Generate d Referral 01/16/2023 02/15/2024 1 1 Reason Comments PT Discharge Physical Therapy Specialty Diagnoses / Procedures Referred By Claus reyes Referred To Contact PHYSICAL THERAPY Diagnoses S/P laminectomy Spinal stenosis of lumbar region, unspecified whether neurogenic claudication present Procedures CONSULT TO PHYSICAL THERAPY PHYSICAL THERAPY EVALUATION HIGH COMPLEX 45 MINS Stephanie Simpson I, MD [address] [place] [address] Pt [facility] [address] [place] [address] Referral ID Status Reason Start Date Expiration Date V isits Requested Visits Authorized [id number] Authorized 04/22/2022 04/21/2023 99 99 Reason Comments Physical Therapy Reason Comments PT Eval Physical Therapy Reason Comments Follow Up left ankle pain and swellling. Reason Comments PT Eval Specialty Diagnoses / Procedures Referred By Contac t Referred To Contact [facility] Diagnoses Right hip pain Procedures CONSULT TO PHYSICAL THERAPY PHYSICAL THERAPY EVALUATION HIGH COMPLEX 45 MINS THERAPEUTIC EXERCISES RE, EA 15 MIN. Yosef Whitaker MD [address] [place] [address] [facility] [place] [address] [place] [address] Referral ID Status Reason Start Date Expiration Date V isits Requested Visits Authorized [id number] Authorized 08/29/2021 04/21/2022 99 99 Reason Onset Date Comments Refill Request 09/04/2021 Refill Request 09/05/2021 Reason Comments Covid Vaccine Reason Comments LESION, SKIN Patient is here for sore Reason Comments Results Reason Comments Patient Education Assessment Specialty Diagnoses / Procedures Referred By Contac t Referred To Contact Nutrition Diagnoses Obesity, Class II, BMI 35-39.9 Procedures CONSULT TO NUTRITION THERAPY OFFICE/OUTPATIENT [facility] 60-74 MINUTES Yosef Whitaker MD [address] [place] [address] Referral ID Status Reason Start Date Expiration Date Visits Requested Visits Authorized [id number] Pending Review PCP Requested Referral 08/28/2021 08/28/2022 1 1 Reason Comments 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 Specialty Diagnoses / Procedures Referred By Contac t Referred To Contact Urology Diagnoses Neoplasm of skin of penis Procedures CONSULT TO UROLOGY OFFICE/OUTPATIENT [facility] MDM 60-74 MINUTES Yosef Whitaker MD [address] [place] [address] Referral ID Status Reason Start Date Expiration Date Visits Requested Visits Authorized [id number] Pending Review PCP Requested Referral 10/06/2021 10/06/2022 1 1 Reason Onset Date Comments Refill Request 11/29/2021 Reason Onset Date Comments Refill Request 12/20/2021 Reason Comments Medicare Wellness Exam Reason Comments Orders Reason Onset Date Comments Refill Request 03/11/2022 Reason Onset Date Comments Refill Request 04/23/2022 Reason Comments Memory Loss Gait Problem Specialty Diagnoses / Procedures Referred By Contac t Referred To Contact Neurology Diagnoses Memory difficulties Shuffling gait Procedures CONSULT TO NEUROLOGY OFFICE/OUTPATIENT [facility] 60-74 MINUTES Yosef Whitaker MD [address] [place] [address] Referral ID Status Reason Start Date Expiration Date Visits Requested Visits Authorized [id number] Pending Review PCP Requested Referral 2 01/29/2023 1 1 Reason Comments Orders Reason Comments Results Reason Comments PAP Therapy Follow Up Reason Comments Follow Up Specialty Diagnoses / Procedures Referred By Contac t Referred To Contact Diagnoses Obstructive sleep apnea syndrome Procedures CONSULT TO SLEEP MEDICINE - ADULT OFFICE/OUTPATIENT [facility] 60-74 MINUTES Yosef Whitaker MD [address] [place] [address] Referral ID Status Reason Start Date Expiration Date Visits Requested Visits Authorized [id number] Pending Review PCP Requested Referral 2 03/12/2023 1 1 Reason Comments PAP Therapy Follow Up New device order a nd OV notes faxed to [facility] Reason Comments Neuropsych Testing Specialty Diagnoses / Procedures Referred By Contac t Referred To Contact PSYCHIATRY Diagnoses Other amnesia Procedures NEUROBEHAVIORAL STATUS XM PHYS/QHP 1ST HOUR NEUROPSYCHOLOGICAL TST EVAL PHYS/QHP 1ST HOUR NEUROPSYCHOLOGICAL TST EVAL PHYS/QHP EA ADDL HR PSYL/NRPSYCL TST PHYS/QHP 2+ TST 1ST 30 MIN PSYCL/NRPSYCL TST PHYS/QHP 2+ TST EA ADDL 30 MIN Margot Bravo MD [address] [place] [address] [place] [address] [address] [address] Referral ID Status Reason Start Date Expiration Date V isits Requested Visits Authorized [id number] Authorized 06/01/2022 08/29/2022 3 3 Reason Comments New Patient Evaluation Reason Onset Date Comments Refill Request 06/13/2022 Reason Comments PAP Therapy Follow Up 30 day download re quested by provider Reason Comments New Patient Evaluation Cardiac Clearance Back surgery Reason Comments Pre-Op Exam Reason Comments CMN Reason Comments Post Op Reason Comments CMN- PAP supplies Christiano Pittman/To- 06/21 Reason Onset Date Comments Refill Request 08/03/2022 Reason Comments Hospital F/U Was discharged from [facility]. Was admitted after back surgery Reason Comments F/U 6 months Reason Comments Established Patient Reason Comments Recheck Blood pressure Reason Comments PT Eval Specialty Diagnoses / Procedures Referred By Contac t Referred To Contact PHYSICAL THERAPY Diagnoses S/P laminectomy Spinal stenosis of lumbar region, unspecified whether neurogenic claudication present Procedures CONSULT TO PHYSICAL THERAPY PHYSICAL THERAPY EVALUATION HIGH COMPLEX 45 MINS Stephanie Simpson I, MD [address] [facility] [place] [address] Pt [facility] [address] [place] [address] Reason Comments Recheck Blood pressure Reason Comments Knee Pain Right Hip Pain Reason Onset Date Comments Refill Request 10/29/2022 Reason Onset Date Comments Refill Request 11/15/2022 Reason Comments Outside Diabetic Eye Exam Reason Onset Date Comments Refill Request 02/07/2023 Reason Comments F/U 6 Month Reason Comments Medicare Wellness Exam Specialty Diagnoses / Procedures Referred By Contac t Referred To Contact MR IMAGING Diagnoses Memory difficulties Shuffling gait Procedures MRI BRAIN WO IVCON MRI BRAIN BRAIN STEM W/O CONTRAST MATERIAL Margot Bravo MD [address] [facility] [place] [address] [place] [address] Referral ID Status Reason Start Date Expiration Date V isits Requested Visits Authorized [id number] Closed Auto-Generate d Referral 03/28/2022 04/27/2023 1 1 Specialty Diagnoses / Procedures Referred By Contac t Referred To Contact MR IMAGING Diagnoses Shuffling gait Chronic bilateral low back pain without sciatica Urge incontinence Procedures MRI LUMBAR SPINE WO IVCON MRI SPINAL CANAL LUMBAR W/O CONTRAST MATERIAL Margot Bravo MD [address] [place] [address] [place] [address] Referral ID Status Reason Start Date Expiration Date V isits Requested Visits Authorized [id number] Closed Auto-Generate d Referral 03/28/2022 04/27/2023 1 1 Reason Comments Follow Up Blood pressure Care Teams (unrecognized sec tion and content) Stem Setter Relationship Specialty Start Date End Date Yosef Whitaker MD [address] [place] [address] PCP - General Family Practice 10/31/13 Stem Setter Relationship Specialty Start Date End Date Yosef Whitaker MD [address] [place] [address] PCP - General Family Practice 10/31/13 Stem Setter Relationship Specialty Start Date End Date Yosef Whitaker MD [address] [place] [address] PCP - General Family Practice 10/31/13 Stem Setter Relationship Specialty Start Date End Date Yosef Whitaker MD [address] [place] [address] PCP - General Family Practice 10/31/13 Stem Setter Relationship Specialty Start Date End Date Yosef Whitaker MD [address] [place] [address] PCP - General Family Practice 10/31/13 Stem Setter Relationship Specialty Start Date End Date Yosef Whitaker MD [address] [place] [address] PCP - General Family Practice 10/31/13 Stem Setter Relationship Specialty Start Date End Date Yosef Whitaker MD [address] [place] [address] PCP - General Family Practice 10/31/13 Stem Setter Relationship Specialty Start Date End Date Yosef Whitaker MD [address] [place] [place] [address] PCP - General Family Practice 10/31/13 Stem Setter Relationship Specialty Start Date End Date Yosef Whitaker MD [facility] [place] [place] [address] PCP - General Family Practice 10/31/13 Stem Setter Relationship Specialty Start Date End Date Yosef Whitaker MD [address] [place] [address], [place] [address] PCP - General Family Practice 10/31/13 Stem Setter Relationship Specialty Start Date End Date Yosef Whitaker MD [address] [place] [address], [place] [address] PCP - General Family Practice 10/31/13 Stem Setter Relationship Specialty Start Date End Date Yosef Whitaker MD [address] [place] [address], [place] [address] PCP - General Family Practice 10/31/13 Stem Setter Relationship Specialty Start Date End Date Yosef Whitaker MD [address] [place] [address], [place] [address] PCP - General Family Medicine 10/31/13 Stem Setter Relationship Specialty Start Date End Date Yosef Whitaker MD [address] [place] [address], [place] [address] PCP - General Family Medicine 10/31/13 Stem Setter Relationship Specialty Start Date End Date Yosef Whitaker MD [address] [place] [address], [place] [address] PCP - General Family Medicine 10/31/13 Stem Setter Relationship Specialty Start Date End Date Yosef Whitaker MD [address] [place] [address], [place] [address] PCP - General Family Medicine 10/31/13 Stem Setter Relationship Specialty Start Date End Date Yosef Whitaker MD [address] [place] [place] [address] PCP - General Family Medicine 10/31/13 Stem Setter Relationship Specialty Start Date End Date Yosef Whitaker MD [address] [place] [place] [address] PCP - General Family Medicine 10/31/13 Stem Setter Relationship Specialty Start Date End Date Yosef Whitaker MD [facility] [place] [place] [address] PCP - General Family Medicine 10/31/13 Stem Setter Relationship Specialty Start Date End Date Yosef Whitaker MD [address] [place] [address], [place] [address] PCP - General Family Medicine 10/31/13 Stem Setter Relationship Specialty Start Date End Date Yosef Whitaker MD [address] [place] [place] [address] PCP - General Family Medicine 10/31/13 Stem Setter Relationship Specialty Start Date End Date Yosef Whitaker MD [facility] [place] [place] [address] PCP - General Family Medicine 10/31/13 Stem Setter Relationship Specialty Start Date End Date Yosef Whitaker MD [address] [place] [place] [address] PCP - General Family Medicine 10/31/13 Stem Setter Relationship Specialty Start Date End Date Yosef Whitaker MD [facility] [place] [place] [address] PCP - General Family Medicine 10/31/13 Stem Setter Relationship Specialty Start Date End Date Yosef Whitaker MD [address] [place] [address], [place] [address] PCP - General Family Medicine 10/31/13 Stem Setter Relationship Specialty Start Date End Date Yosef Whitaker MD [address] [place] [place] [address] PCP - General Family Medicine 10/31/13 Mary Do, FREEZING ROOM WORKER.BAG PRESSER [address] [place] [address] Gerontology 06/18/22 Stem Setter Relationship Specialty Start Date End Date Yosef Whitaker MD [address] [place] [address] PCP - General Family Medicine 10/31/13 Mary Do, FREEZING ROOM WORKER.BAG PRESSER [address] [place] [address] Gerontology 06/18/22 Stem Setter Relationship Specialty Start Date End Date Yosef Whitaker MD [address] [place] [address] PCP - General Family Medicine 10/31/13 Mary Do, FREEZING ROOM WORKER.BAG PRESSER [address] [place] [address] Gerontology 06/18/22 Stem Setter Relationship Specialty Start Date End Date Yosef Whitaker MD [address] [facility] [place] [address] PCP - General Family Medicine 10/31/13 Mary Do, FREEZING ROOM WORKER.BAG PRESSER [address] [place] [address] Gerontology 06/18/22 Kim Alonzo MD [address] [place] [address] Cardiology 06/27/22 Stem Setter Relationship Specialty Start Date End Date Yosef Whitaker MD [address] [facility] [place] [address] PCP - General Family Medicine 10/31/13 Mary Do, FREEZING ROOM WORKER.BAG PRESSER [address] [place] [address] Gerontology 06/18/22 Kim Alonzo MD [address] [place] [address], [facility] [address] [place] [address] Cardiology 06/27/22 Stem Setter Relationship Specialty Start Date End Date Yosef Whitaker MD [address] [place] [address] PCP - General Family Medicine 10/31/13 Mary Do, FREEZING ROOM WORKER.BAG PRESSER [address] [place] [address] Gerontology 06/18/22 [place] [address] [place] [address], [address] [place] [address] Cardiology 06/27/22 Stem Setter Relationship Specialty Start Date End Date Yosef Whitaker MD [address] [place] [address] PCP - General Family Medicine 10/31/13 Mary Do, FREEZING ROOM WORKER.BAG PRESSER [address] [place] [address] Gerontology 06/18/22 [place] [address] [place] [address], [facility] [address] [place] [address] Cardiology 06/27/22 Stem Setter Relationship Specialty Start Date End Date Yosef Whitaker MD [address] [facility] [place] [address] PCP - General Family Medicine 10/31/13 Mary Do, FREEZING ROOM WORKER.BAG PRESSER [address] [place] [address] Gerontology 06/18/22 Kim Alonzo MD [address] [facility], [address] [place] [address] Cardiology 06/27/22 Stem Setter Relationship Specialty Start Date End Date Yosef Whitaker MD [address] [place] [address] PCP - General Family Medicine 10/31/13 Mary Do, FREEZING ROOM WORKER.BAG PRESSER [address] [place] [address] Gerontology 06/18/22 [place] [address] [place] [address], [address] [address] [place] [address] Cardiology 06/27/22 Stem Setter Relationship Specialty Start Date End Date Yosef Whitaker MD [address] [facility] [place] [address] PCP - General Family Medicine 10/31/13 Mary Do, FREEZING ROOM WORKER.BAG PRESSER [address] [place] [place] [address] Gerontology 06/18/22 Kim Alonzo MD [address] [facility], [address] [place] [address] Cardiology 06/27/22 Stem Setter Relationship Specialty Start Date End Date Yosef Whitaker MD [address] [facility] [place] [address] PCP - General Family Medicine 10/31/13 Mary Do, FREEZING ROOM WORKER.BAG PRESSER [address] [place] [address] Gerontology 06/18/22 Kim Alonzo MD [address] [place] [address], [address] [address] [place] [address] Cardiology 06/27/22 Stem Setter Relationship Specialty Start Date End Date Yosef Whitaker MD [address] [place] [address] PCP - General Family Medicine 10/31/13 Mary Do, FREEZING ROOM WORKER.BAG PRESSER [address] [place] [address] Gerontology 06/18/22 Kim Alonzo MD [address] [place] [address], [address] [place] [address] Cardiology 06/27/22 Stem Setter Relationship Specialty Start Date End Date Yosef Whitaker MD [address] [place] [address] PCP - General Family Medicine 10/31/13 Mary Do, FREEZING ROOM WORKER.BAG PRESSER [address] [place] [address] Gerontology 06/18/22 [place] [address] [place] [address], [address] [place] [address] Cardiology 06/27/22 Stem Setter Relationship Specialty Start Date End Date Yosef Whitaker MD [address] [facility] [place] [address] PCP - General Family Medicine 10/31/13 Mary Do, FREEZING ROOM WORKER.BAG PRESSER [address] [place] [place] [address] Gerontology 06/18/22 Kim Alonzo MD [address] [facility], [address] [place] [address] Cardiology 06/27/22 Stem Setter Relationship Specialty Start Date End Date Yosef Whitaker MD [address] [facility] [place] [address] PCP - General Family Medicine 10/31/13 Mary Do, FREEZING ROOM WORKER.BAG PRESSER [address] [place] [address] Gerontology 06/18/22 [place] [address] [place] [address], [address] [place] [address] Cardiology 06/27/22 Stem Setter Relationship Specialty Start Date End Date Yosef Whitaker MD [address] [place] [address] PCP - General Family Medicine 10/31/13 Mary Do, FREEZING ROOM WORKER.BAG PRESSER [address] [place] [place] [address] Gerontology 06/18/22 Kim Alonzo MD [address] [facility], [address] [place] [address] Cardiology 06/27/22 Stem Setter Relationship Specialty Start Date End Date Yosef Whitaker MD [address] [place] [place] [address] PCP - General Family Medicine 10/31/13 Mary Do, FREEZING ROOM WORKER.BAG PRESSER [address] [place] [address] Gerontology 06/18/22 [place] [address] [place] [address], [facility] [address] [place] [address] Cardiology 06/27/22 Stem Setter Relationship Specialty Start Date End Date Yosef Whitaker MD [address] [place] [address] PCP - General Family Medicine 10/31/13 Mary Do, FREEZING ROOM WORKER.BAG PRESSER [address] [place] [address] Gerontology 06/18/22 [place] [address] [place] [address], [facility] [address] [place] [address] Cardiology 06/27/22 Stem Setter Relationship Specialty Start Date End Date Yosef Whitaker MD [address] [place] [address] PCP - General Family Medicine 10/31/13 Mary Do, FREEZING ROOM WORKER.BAG PRESSER [address] [place] [address] Gerontology 06/18/22 [place] [address] [place] [address], [facility] [address] [place] [address] Cardiology 06/27/22 Stem Setter Relationship Specialty Start Date End Date Yosef Whitaker MD [address] [place] [address] PCP - General Family Medicine 10/31/13 DoMary burton, FREEZING ROOM WORKER.BAG PRESSER [address] [place] [place] [address] Gerontology 06/18/22 Kim Alonzo MD [address], [address] [place] [address] Cardiology 06/27/22 Stem Setter Relationship Specialty Start Date End Date Yosef Whitaker MD [address] [place] [address] PCP - General Family Medicine 10/31/13 DoMary burton, FREEZING ROOM WORKER.BAG PRESSER [address] [place] [address] Gerontology 06/18/22 [place] [address] [place] [address], [address] [place] [address] Cardiology 06/27/22 Stem Setter Relationship Specialty Start Date End Date Yosef Whitaker MD [address] [place] [address] PCP - General Family Medicine 10/31/13 DoMary sánchez, FREEZING ROOM WORKER.BAG PRESSER [address] [place] [address] Gerontology 06/18/22 Kim Alonzo MD [address], [address] [place] [address] Cardiology 06/27/22 Stem Setter Relationship Specialty Start Date End Date Yosef Whitaker MD [address] [place] [address] PCP - General Family Medicine 10/31/13 Mary Do, FREEZING ROOM WORKER.BAG PRESSER [address] [place] [address] Gerontology 06/18/22 Kim Alonzo MD [address], [address] [place] [address] Cardiology 06/27/22 Stem Setter Relationship Specialty Start Date End Date Yosef Whitaker MD [address] [facility] [place] [address] PCP - General Family Medicine 10/31/13 Mary Do, FREEZING ROOM WORKER.BAG PRESSER [address] [place] [address] Gerontology 06/18/22 Kim Alonzo MD [address] [facility], [address] [place] [address] Cardiology 06/27/22 Stem Setter Relationship Specialty Start Date End Date Yosef Whitaker MD [address] [place] [place] [address] PCP - General Family Medicine 10/31/13 Mary Do, FREEZING ROOM WORKER.BAG PRESSER [address] [place] [address] Gerontology 06/18/22 Kim Alonzo MD [address], [address] [place] [address] Cardiology 06/27/22 Stem Setter Relationship Specialty Start Date End Date Yosef Whitaker MD [address] [place] [address] PCP - General Family Medicine 10/31/13 Mary Do, FREEZING ROOM WORKER.BAG PRESSER [address] [place] [address] Gerontology 06/18/22 Kim Alonzo MD [address] [place] [address] [id number] Cardiology 06/27/22 Stem Setter Relationship Specialty Start Date End Date Yosef Whitaker MD [address] [place] [address] PCP - General Family Medicine 10/31/13 DoMary burton, FREEZING ROOM WORKER.BAG PRESSER [address] [place] [address] Gerontology 06/18/22 Kim Alonzo MD [address] [place] [address] [id number] Cardiology 06/27/22 Stem Setter Relationship Specialty Start Date End Date Yosef Whitaker MD [address] [place] [address] PCP - General Family Medicine 10/31/13 Mary Do, FREEZING ROOM WORKER.BAG PRESSER [address] [place] [address] Gerontology 06/18/22 Kim Alonzo MD [address] [place] [address] [id number] Cardiology 06/27/22 Stem Setter Relationship Specialty Start Date End Date Yosef Whitaker MD [address] [place] [address] PCP - General Family Medicine 10/31/13 Mary Do, ALFREDO.BAG PRESSER [address] [place] [address] Gerontology 06/18/22 Kim Alonzo MD [address] [place] [address], [address] [address] Cardiology 06/27/22 Stem Setter Relationship Specialty Start Date End Date Yosef Whitaker MD [address] [place] [address] PCP - General Family Medicine 10/31/13 Mary Do, FREEZING ROOM WORKER.BAG PRESSER [address] [place] [address] Gerontology 06/18/22 Kim Alonzo MD [address] [place] [address] 303133 Cardiology 06/27/22 Stem Setter Relationship Specialty Start Date End Date Yosef Whitaker MD [address] [place] [address] PCP - General Family Medicine 10/31/13 Mary Do, FREEZING ROOM WORKER.BAG PRESSER [address] [place] [address] Gerontology 06/18/22 Kim Alonzo MD [address] [place] [address], [address] [id number] Cardiology 06/27/22 Stem Setter Relationship Specialty Start Date End Date Yosef Whitaker MD [address] [place], [place] 712741 PCP - General Family Medicine 10/31/13 Mary Do, FREEZING ROOM WORKER.BAG PRESSER [address] [place], [place] 905841 Gerontology 06/18/22 Kim Alonzo MD [address] [place] [address] Cardiology 06/27/22 Stem Setter Relationship Specialty Start Date End Date Yosef Whitaker MD [address] [place], [place] 841001 PCP - General Family Medicine 10/31/13 Mary Do, FREEZING ROOM WORKER.BAG PRESSER [address] [place], [place] 078551 Gerontology 06/18/22 Kim Alonzo MD [address] [place] [address] [id number] Cardiology 06/27/22 Stem Setter Relationship Specialty Start Date End Date Yosef Whitaker MD [address] [place], [place] [id number] PCP - General Family Medicine 10/31/13 Mary Do, FREEZING ROOM WORKER.BAG PRESSER [address] [place], [place] [id number] Gerontology 06/18/22 Kim Alonzo MD [address] [place] [address], [address] [phone] Cardiology 06/27/22 Stem Setter Relationship Specialty Start Date End Date Yosef Whitaker MD [address] [place] [address] PCP - General Family Medicine 10/31/13 Mary Do, FREEZING ROOM WORKER.BAG PRESSER [address] [place] [address] Gerontology 06/18/22 Kim Alonzo MD [address] [place] [address], [address] [phone] Cardiology 06/27/22 Stem Setter Relationship Specialty Start Date End Date Yosef Whitaker MD [address] [place], [place] [address] PCP - General Family Medicine 10/31/13 Mary Do, FREEZING ROOM WORKER.BAG PRESSER [address] [place] [address] Gerontology 06/18/22 Kim Alonzo MD [address] [place] [address], [address] [phone] Cardiology 06/27/22 Stem Setter Relationship Specialty Start Date End Date Yosef Whitaker MD [address] [place] [address] PCP - General Family Medicine 10/31/13 Stem Setter Relationship Specialty Start Date End Date Yosef Whitaker MD [address] [place] [address] PCP - General Family Medicine 10/31/13 (unrecognized sect ion and content) No Status Records FoundNo Status Records FoundNo Status Records Found INFORMATION SOURCE (unrecogn ized section and content) DATE CREATED AUTHOR AUTHOR'S ORGANIZ ATION 02/15/2023 [facility] DATE CREATED AUTHOR AUTHOR'S ORGANIZ ATION 03/17/2023 [facility] FOR RECORDS PERTAINING TO PATIENTS WHO ARE OR HAVE BEEN ENROLLED IN A CHEMICAL DEPENDENCY/SUBSTANCEABUSE PROGRAM, SOME INFORMATION MAY BE OMITTED. This clinical summary was aggregated from multiple sources. Caution should be exercised in using it in the provision of clinical care. This summary normalizes information from multiple sources, and as a consequence, information in this document may materially change the coding, format and clinical context of patient data. In addition, data may be omitted in some cases. CLINICAL DECISIONS SHOULD BE BASED ON THE PRIMARY CLINICAL RECORDS. [email or web address] [facility]. provides no warranty or guarantee of the accuracy or completeness of information in this document.
--- NOTE | 2023-04-10 15:29 | NURSING ---
04/10/23@1515- BEDSIDE NIHSS PERFORMED WITH KUN KIRK ON PCU. PT VSS AT TIME OF TRANSFER.
--- NOTE | 2023-04-10 15:41 | MRI_ITS ---
We are attempting to reach an attending provider to discuss findings. An addendum with communication details will be sent when the communication is complete. STUDY: MRI BRAIN WITHOUT CONTRAST REASON FOR EXAM: Male, 77 years old. CVA TECHNIQUE: Standardized multiplanar fat and water weighted pulse sequences were obtained. COMPARISON: CT the brain April 10, 2023 FINDINGS: Mild atrophy and moderate periventricular white matter ischemic changes. There are foci of restricted diffusion within the right parietal lobe with acute ischemic changes. . Normal bilateral basal ganglia. Normal thalami. There is no extra-axial fluid accumulation. Normal flow voids within the major intracranial circulation suggesting patency by spin echo criteria. Partial empty sella deformity of uncertain significance. Normal, infundibular stalk, optic chiasm and hypothalamus. Normal tectal plate and pineal gland. Normal midbrain, yaima and medulla. Normal cerebellum. Normal basal cisterns. Normal bilateral temporal bones. Normal bilateral internal auditory canals. Postsurgical changes of the orbits.. Normal visualized paranasal sinuses. Normal calvarium and skull base. Normal visualized soft tissue structures. Normal visualized upper cervical spine. MRI/Brain without Contrast IMPRESSION: Mild atrophy and moderate periventricular white matter ischemic changes.. Small foci of acute small vessel ischemic changes in the right parietal lobe Electronically Signed: Yosef Carvajal MD at 18:45 EST ,
--- NOTE | 2023-04-10 15:41 | ECHOD_ITS ---
Reason For Study: TIA/CVA Procedure This was a 2D Doppler, Color Flow transthoracic echocardiogram. Exam performed portable in patient room. Left Ventricle Normal LV size. Mild concentric left ventricular hypertrophy. Left ventricular systolic function is normal. The estimated ejection fraction is 60 %. Normal diastology for age. No regional wall motion abnormalities noted. Right Ventricle Normal RV size. Normal systolic function. Atria The left and right atria are normal. Bubble contrast study negative for right to left interatrial shunt. Mitral Valve The mitral valve is structurally normal. No prolapse or stenosis seen. Tricuspid Valve Normal tricuspid valve. Trivial tricuspid valve insufficiency. Right ventricular systolic pressure estimated to be 27 mmHg. Aortic Valve Trisinus/trileaflet aortic valve. Pulmonic Valve The pulmonic valve is not well visualized. Trivial pulmonic valve insufficiency. Great Vessels Normal aortic root. Pericardium/Pleural No pericardial effusion. Medication Performed a rapid injection of agitated mix of 9 cc saline and 1cc air to assess for atrial septal defect. MMode/2D Measurements & Calculations LVIDd: 3.7 cm IVSd: 1.2 cm Ao root diam: 3.3 cm LVIDs: 2.4 cm LVPWd: 1.2 cm RVDd: 2.8 cm FS: 33.6 % LAV(MOD-bp): 25.7 ml LVAd ap4: 26.0 cm2 SV(MOD-sp4): 49.8 ml LAV(MOD-bp) Indexed: 12.1 ml/m2 LVLd ap4: 7.7 cm LAV(MOD-sp2): 23.0 ml EDV(MOD-sp4): 73.5 ml LAV(MOD-sp4): 25.3 ml EDV(sp4-el): 74.6 ml LVAs ap4: 13.2 cm2 LVLs ap4: 6.5 cm ESV(MOD-sp4): 23.7 ml ESV(sp4-el): 22.5 ml EF(MOD-sp4): 67.8 % EF(sp4-el): 69.8 % SV(sp4-el): 52.1 ml LA A4 area: 13.0 cm2 LA dimension(2D): 2.8 cm RA A4 area: 10.3 cm2 TAPSE: 2.6 cm Time Measurements MV dec time: 0.21 sec Doppler Measurements & Calculations MV E max anam: 53.7 cm/sec Lat Peak E' Anam: 6.6 cm/sec Med Peak E' Anam: 4.4 cm/sec MV A max anam: 81.7 cm/sec E/E' lat: 8.1 E/E' med: 12.2 MV E/A: 0.66 MV dec slope: 253.6 cm/sec2 Ao V2 max: 121.8 cm/sec LV V1 max: 96.4 cm/sec Ao max P.9 mmHg LV V1 max P.7 mmHg Ao V2 mean: 78.9 cm/sec Ao mean P.9 mmHg Ao V2 VTI: 23.4 cm PA V2 max: 115.5 cm/sec TR max anam: 243.0 cm/sec TR max P.6 mmHg ECHO/Echo Complete Interpretation Summary The estimated ejection fraction is 60 %. Mild concentric left ventricular hypertrophy. Bubble contrast study negative for right to left interatrial shunt. No prior study for comparison. Ordering Physician: Guilherme Herrera Referring Physician: Yosef Rodas Performed By: Che Garcia, JENI, RVT
[2023-04-10] MEDS: Gabapentin 400 MG Capsule 800 MG PO ×2 (16:32→21:34)
[2023-04-10] MEDS: Gabapentin 100 MG Capsule PO ×2 (16:32→21:34)
[2023-04-10 17:02] LABS: Bedside Glucose 83 mg/dL (74-106)
[2023-04-10] MEDS: Atorvastatin Calcium 10 MG Tablet 5 MG PO (21:34)
[2023-04-10 23:01] LABS: Bedside Glucose 97 mg/dL (74-106)
[2023-04-11] VITALS (7 sets, daily range): BP systolic 116–164; BP diastolic 73–100; PULSE 62–84; RESP 16–18; TEMP 36.4–36.8; O2SAT 92–95; BMI 35.3
[2023-04-11] MEDS: Gabapentin 100 MG Capsule PO ×3 (05:31→21:58)
[2023-04-11] MEDS: Gabapentin 400 MG Capsule 800 MG PO ×3 (05:32→21:58)
[2023-04-11 05:37] LABS: Anion Gap 6 (5-15); BUN 33 mg/dL (7-18); BUN/Creat Ratio 26.8 RATIO (10-20); Calcium,Total 8.7 mg/dL (8.5-10.1); Chloride 106 mmol/L (98-107); Cholesterol 143 mg/dL (200); Creatinine, Serum 1.23 mg/dL (0.70-1.30); EST Glomerular Filtration Rate 61 mL/min (>60); Est Glom Filt Rate - Afr Amer 73 mL/min (>60); Estimated Creatinine Clearance 47.02 ml/min; Glucose 112 mg/dL (74-106); High Density Lipoprotein 34 mg/dL; Potassium 4.7 mmol/L (3.5-5.1); Sodium Level 141 mmol/L (136-145); Triglycerides 217 mg/dL; Very Low Density Lipoprotein 43 mg/dL (5-40)
[2023-04-11 06:46] LABS: Bedside Glucose 125 mg/dL (74-106)
[2023-04-11] MEDS: Losartan Potassium 50 MG Tablet PO (08:10)
[2023-04-11] MEDS: Pantoprazole Sodium 40 MG Tablet PO (08:10)
[2023-04-11] MEDS: Cyanocobalamin 500 MCG Tablet 1000 MCG PO (08:10)
[2023-04-11] MEDS: Tolterodine Tartrate 2 MG CAP.SA PO (08:10)
[2023-04-11] MEDS: Aspirin 81 MG TAB.CHEW PO (08:10)
[2023-04-11] MEDS: Ascorbic Acid 500 MG Tablet 1000 MG PO (08:11)
[2023-04-11] MEDS: Enoxaparin 40 MG/0.4 ML Syringe SC (08:12)
--- NOTE | 2023-04-11 08:43 | PN.HOSP_ITS ---
Reason for Visit Reason for Visit: Diagnoses Cerebral infarction, unspecified (04/10/23) Subjective Subjective Still with left-sided weakness though improved from yesterday. Objective Data Objective Data Vital Signs: Vital Signs Temp Pulse Resp BP Pulse Ox O2 Del Method 36.6 C 62 16 131/73 H 92 CPAP 04/11/23 08:00 04/11/23 08:00 04/11/23 08:00 04/11/23 08:00 04/11/23 08:00 04/11/23 08:00 Oxygen Delivery Method CPAP Weight: 102.3 kg Body Mass Index (BMI) 35.3 Intake & Output: Intake and Output for Last 24 Hours 04/09/23 04/10/23 04/11/23 23:59 23:59 23:59 Intake Total 200 / 200 Output Total 650 / 650 Balance 200 / 200 -650 / -650 Lab / Micro Data 04/10/23 11:15 04/11/23 04:30 Labs: Laboratory Results - last 24 hr 04/10/23 11:13: POC Glucose 99 04/10/23 11:15: WBC 7.6, RBC 4.12 L, Hgb 12.0 L, Hct 39.1 L, MCV 94.9 H, MCH 29.1, MCHC 30.7 L, RDW Std Deviation 49.5 H, RDW Coeff of Isaura 14.3, Plt Count 239, MPV 9.9, Immature Gran % (Auto) 0.400, Neut % (Auto) 65.6, Lymph % (Auto) 20.9, [place] % (Auto) 6.2, Eos % (Auto) 6.5 H, Baso % (Auto) 0.4, Absolute Neuts (auto) 5.0, Absolute Lymphs (auto) 1.58, Nucleated RBC % 0, PT 13.5, INR 1.0, APTT 25.0, Sodium 141, Potassium 4.7, Chloride 109 H, Carbon Dioxide 29.0, Anion Gap 3 L, BUN 36 H, Creatinine 1.43 H, Estim Creat Clear Calc 40.45, Est GFR (MDRD) Af Amer 62, Est GFR (MDRD) Non-Af 51 L, BUN/Creatinine Ratio 25.2 H, Glucose 107 H, Calcium 9.2, Troponin I High Sens 5 04/10/23 16:30: POC Glucose 83 04/10/23 21:42: POC Glucose 97 04/11/23 04:30: Sodium 141, Potassium 4.7, Chloride 106, Carbon Dioxide 29.0, Anion Gap 6, BUN 33 H, Creatinine 1.23, Estim Creat Clear Calc 47.02, Est GFR (MDRD) Af Amer 73, Est GFR (MDRD) Non-Af 61, BUN/Creatinine Ratio 26.8 H, Glucose 112 H, Calcium 8.7, Triglycerides 217 H, Cholesterol 143, LDL Cholesterol 66, VLDL Cholesterol 43 H, HDL Cholesterol 34 L 04/11/23 06:29: POC Glucose 125 H Radiography Diagnostic Testing: Radiology Impression Brain CT 04/10/23 11:15 IMPRESSION: Chronic involutional changes of the brain. N.B. : The above Results were Read Back by Babar Oliva MD to Dr Cesario DO, and understanding confirmed on 04/10/2023 11:29:33 (ET). Electronically Signed: Babar Oliva MD at 11:30 EST , ADDENDUM: 04/10/23 1137 IMPRESSION: Chronic involutional changes of the brain. N.B. : The above Results were Read Back by Babar Oliva MD to Dr Cesario DO, and understanding confirmed on 04/10/2023 11:29:33 (ET). Electronically Signed: Babar Oliva MD at 11:30 EST , Head/Neck CTA 04/10/23 11:15 IMPRESSION: Normal CTA Head and neck with contrast. N.B. : The above Results were Read Back by Babar Oliva MD to Dr Cesario DO, and understanding confirmed on 04/10/2023 11:59:14 (ET). Electronically Signed: Babar Oliva MD at 12:00 EST , ADDENDUM: 04/10/23 1207 IMPRESSION: Normal CTA Head and neck with contrast. N.B. : The above Results were Read Back by Babar lOiva MD to Dr Cesario DO, and understanding confirmed on 04/10/2023 11:59:14 (ET). Electronically Signed: Babar Oliva MD at 12:00 EST , Chest X-Ray 04/10/23 12:00 IMPRESSION: Normal x-ray examination of the chest. Electronically Signed: Babar Oliva MD at 12:24 EST , Brain MRI 04/10/23 15:41 IMPRESSION: Mild atrophy and moderate periventricular white matter ischemic changes.. Small foci of acute small vessel ischemic changes in the right parietal lobe Electronically Signed: Yosef Carvajal MD at 18:45 EST , ADDENDUM: 04/10/23 2110 IMPRESSION: Mild atrophy and moderate periventricular white matter ischemic changes.. Small foci of acute small vessel ischemic changes in the right parietal lobe N.B. : The above Results were Read Back by Yosef Carvajal MD to Giovanni Addison MD, and understanding confirmed on 04/10/2023 21:03:19 (ET). Electronically Signed: Yosef Carvajal MD at 18:45 EST , Physical Exam Const alert and no apparent distress HEENT head/scalp atraumatic Head and Scalp: normocephalic Neuro oriented x3, moves all extremities and no focal motor deficits Sensorium / Orientation: awake and alert Coordination / Balance: [id number] test normal Motor Exam: strength 5/5 throughout Assessment & Plan Assessment/Plan (1) Stroke: QUALIFIERS: CVA mechanism: unspecified Qualified Code(s): I63.9 - Cerebral infarction, unspecified PLAN: Onset was the at 2200. Patient did not seek attention until the . Patient is out of the window for tPA. No LVO on CTA so no extraction is necessary at this time. Continue with aspirin. MRI brain: mild atropy and moderate periventricular white matter ischemic changes. Small foci of acute small vessel ischemic changes in the right parietal lobe. , 2D echocardiogram, fasting lipid panel. Consult physical, occupational and speech therapy. Load w clopidogrel and daily clopidogrel. PT OT eval. Seen by neurology on reevaluation recommending aspirin and clopidogrel for 21 days and just to continue with aspirin thereafter. Follow-up with neurology PLAN: Plan Chronic conditions * Diabetes mellitus type 2: Hold metformin as he received IV contrast. Hold off on that for 5 days. Sliding scale insulin for now. Check an A1c. * Hypertension: Allow permissive hypertension for 24 hours after stroke. Resume losartan on the . * Neuropathy: Patient does take large doses of gabapentin. * Questionable Parkinson's. Patient's current presentation is not consistent with Parkinson's. Patient is seeing a neurologist. Patient does not really have any overt signs of Parkinson's on my evaluation but will defer to outpatient neurology. I did express concern for the large quantities of gabapentin that he does take if that is a contributing factor in regards to his weakness and confusion that he may be experiencing chronically. VTE prophylaxis with enoxaparin. Charges/Coding Visit Charges Inpatient E&M: 48555 Subs Hosp L2
[2023-04-11 09:32] LABS: Hemoglobin A1c 5.8 % (3.8-5.6)
--- NOTE | 2023-04-11 09:49 | CASEMGMT ---
SW completed a PHQ 9 with patient as he had a Stroke. Patient scored a 3 which indicates minimal depression. Patient denied any need for counseling resources. SW told patient if he changes his mind to ask for SW and SW would be happy to provide him with counseling resources. Salina Esqueda MSW GILA
[2023-04-11] MEDS: Insulin Lispro 100 UNIT/ML INSULN.PEN SC (11:14)
[2023-04-11] MEDS: Clopidogrel Bisulfate 300 MG Tablet PO (11:14)
[2023-04-11 11:28] LABS: Bedside Glucose 151 mg/dL (74-106)
--- NOTE | 2023-04-11 12:05 | NEURO.CONS ---
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 Continue ASA and Plavix for secondary stroke prevention (stroke with low NIHSS) for 21 days then stop Plavix and continue with ASA afterward 2. Continue statin for secondary stroke prevention. LDL goal <70 (currently 66) 3. Life style modification: exercise as tolerated, weight loss and watch diet. Diabetes management. A1c of 5.5 4. Obtain TTE 5. Target normotension 6. Follow up with stroke clinic in 2 weeks after discharge I personally attended this patient and spent a total time of 71 minutes evaluating this patient including clinical assessment, review of chart, medical history imaging, and determining appropriate treatment and workup. HPI Consult Data Date of Consult: 04/11/23 HPI Narrative HPI Narrative: ESSIE LOCK, is a 77 M who presents with an acute onset of left arm and left weakness as well as slurred speech. He reported that he feeling weak since 04/09 night, symptoms were more pronounced the following day. He reported having memory issues for the last year for which he was getting evaluation by his neurologist. CTH was negative for bleed or larger territory infarction. CTA with no LVO. Brain MRI demonstrated R subcortical stroke. [facility] Medical History Diabetes mellitus GERD (gastroesophageal reflux disease) HTN (hypertension) Hyperlipidemia Neuropathy Sleep apnea Home Medications gabapentin 100 mg capsule 100 mg PO TID NERVE PAIN 09/14/17 [History Last Taken 04/10/23] gabapentin 400 mg capsule 800 mg PO TID NERVE PAIN 09/14/17 [History Last Taken 04/10/23] losartan 50 mg tablet 50 mg PO DAILY BLOOD PRESSURE 09/14/17 [History Last Taken 04/10/23] metformin 1,000 mg tablet 1,000 mg PO BID DIABETES 09/14/17 [History Last Taken 04/10/23] simvastatin 10 mg tablet 10 mg PO QHS CHOLESTEROL 09/14/17 [History Last Taken 04/09/23] cyanocobalamin (vitamin B-12) 1,000 mcg tablet 1,000 mcg PO DAILY SUPPLEMENT 07/21/18 [History Last Taken 04/10/23] walker #1 ea 07/21/18 [Rx Last Taken Unknown] ascorbic acid (vitamin C) 1,000 mg tablet 1 g PO DAILY SUPPLEMENT 04/10/23 [History Last Taken 04/10/23] aspirin 81 mg chewable tablet 81 mg PO DAILY HEART HEALTH 04/10/23 [History Last Taken 04/10/23] diclofenac sodium 75 mg tablet,delayed release 75 mg PO BID ANTI-INFLAMMATORY 04/10/23 [History Last Taken 04/10/23] omeprazole 40 mg capsule,delayed release 40 mg PO DAILY ACID REFLUX 04/10/23 [History Last Taken 04/10/23] oxybutynin chloride 10 mg tablet,extended release 24 hr 10 mg PO DAILY OVERACTIVE BLADDER 04/10/23 [History Last Taken 04/10/23] Allergy/AdvReac Type Severity Reaction Status Date / Time lisinopril Allergy Shortness Verified 04/10/23 13:10 of breath Penicillins [PCN] Allergy Unknown Verified 04/10/23 13:10 Social History Smoking Status: Former smoker alcohol intake: current alcohol intake frequency: holidays/special occasions only Vital Signs Vital Signs Vital Signs: 04/10/23 12:30 04/10/23 13:00 04/10/23 13:30 Temperature Temperature Source Pulse Rate 62 65 70 Respiratory Rate 17 16 18 Respiratory Effort Respiratory Depth Respiratory Pattern Blood Pressure 147/85 H 164/84 H 155/84 H Blood Pressure Mean 105 110 107 Blood Pressure Source Blood Pressure Position Blood Pressure Location Pulse Ox 96 95 95 Oxygen Delivery Method Room Air Room Air Room Air Fraction of Inspired Oxygen (FIO2) 04/10/23 13:53 04/10/23 14:00 04/10/23 14:30 Temperature 98.0 F Temperature Source Pulse Rate 68 68 69 Respiratory Rate 16 20 H 14 Respiratory Effort Respiratory Depth Respiratory Pattern Blood Pressure 152/80 H 175/85 H 177/98 H Blood Pressure Mean 104 115 124 Blood Pressure Source Blood Pressure Position Blood Pressure Location Pulse Ox 96 97 96 Oxygen Delivery Method Room Air Fraction of Inspired Oxygen (FIO2) 04/10/23 15:00 04/10/23 15:25 04/10/23 17:25 Temperature 97.8 F Temperature Source Temporal Pulse Rate 67 78 Respiratory Rate 16 18 Respiratory Effort Normal Non-Labored Respiratory Depth Normal Respiratory Pattern Normal Blood Pressure 104/78 163/90 H Blood Pressure Mean 86 114 Blood Pressure Source Monitor Blood Pressure Position Semi-Fowlers Blood Pressure Location Left Arm Pulse Ox 97 98 Oxygen Delivery Method Room Air Room Air Room Air Fraction of Inspired Oxygen (FIO2) 04/10/23 21:25 04/10/23 21:30 04/10/23 21:20 Temperature 97.8 F Temperature Source Temporal Pulse Rate 75 Respiratory Rate 16 Respiratory Effort Normal Non-Labored Respiratory Depth Normal Respiratory Pattern Normal Blood Pressure 139/68 H Blood Pressure Mean 91 Blood Pressure Source Blood Pressure Position Blood Pressure Location Pulse Ox 93 94 Oxygen Delivery Method Room Air Room Air Room Air Fraction of Inspired Oxygen (FIO2) 04/11/23 01:25 04/11/23 01:30 04/11/23 05:25 Temperature 97.8 F 97.8 F Temperature Source Temporal Temporal Pulse Rate 73 63 Respiratory Rate 18 16 Respiratory Effort Normal Non-Labored Respiratory Depth Normal Respiratory Pattern Normal Blood Pressure 142/94 H 156/88 H Blood Pressure Mean 110 110 Blood Pressure Source Blood Pressure Position Blood Pressure Location Pulse Ox 95 93 Oxygen Delivery Method CPAP CPAP CPAP Fraction of Inspired Oxygen (FIO2) 04/11/23 08:00 04/11/23 07:20 Temperature 97.8 F Temperature Source Temporal Pulse Rate 62 Respiratory Rate 16 Respiratory Effort Respiratory Depth Respiratory Pattern Blood Pressure 131/73 H Blood Pressure Mean 92 Blood Pressure Source Monitor Blood Pressure Position Semi-Fowlers Blood Pressure Location Left Arm Pulse Ox 92 92 Oxygen Delivery Method CPAP CPAP Fraction of Inspired Oxygen (FIO2) 21 Weight Weight: 102.3 kg Body Mass Index (BMI) 35.3 NIHSS NIHSS Nursing Documentation NIHSS Nursing Documentation: NIHSS: Ischemic Stroke/TIA Start: 04/10/23 15:41 Text: For PCU Patients: NIH and Neuro Check every 4 Status: Active hours and PRN Freq: [id number] Protocol: Activity Type Activity Date Activity User E-sign Co-sign Detail Recorded Client Recorded Date Recorded By Document 04/11/23 08:07 LR Desktop 04/11/23 08:08 LR 04/11/23 08:07 NIH Stroke Scale [NIHSS] A score of 0 is normal or asymptomatic . Total possible score is 42. Inpatient: RN or Physician to activate a stroke alert for onset of new stroke symptoms or with NIHSS increase >/= 3 points. Following change in neurological status, NIHSS will be performed per physician order or more frequently PRN. -1a. Level of Consciousness Alert; keenly responsive -1b. LOC Questions Answers BOTH questions correctly. -1c. LOC Commands Performs both tasks correctly . -2. Best Gaze Normal -3. Visual No visual loss -4. Facial Palsy Minor paralysis (flattened nasolabial fold , asymmetry on smiling) -5a. Left Arm No drift; arm holds 90 (or 45 ) degrees for full 10 seconds -5b. Right Arm No drift; arm holds 90 (or 45 ) degrees for full 10 seconds -6a. Left Leg No drift; leg holds 30-degree position for full 5 seconds -6b. Right Leg No drift; leg holds 30-degree position for full 5 seconds -7. Limb Ataxia Absent -8. Sensory Mild-to- moderate sensory loss; -9. Best Language No aphasia; normal -10. Dysarthria Normal -11. Extinction and Inattention No abnormality -Total 2 Query Text:A score of 0 is normal or asymptomatic. Total possible score is 42 . ED: Notify Physician for NIHSS increase by > / = 3 points. Inpatient: RN or Physician to activate a stroke alert for NIHSS increase of > / = 3 points. Coma Scale [Assess] -Eye Opening Spontaneous -Motor Obeys Commands -Verbal Oriented [Total] -Coma Scale Total 15 NIHSS 1a. Level of Consciousness: Alert; keenly responsive 1b. LOC Questions: Answers BOTH questions correctly. 1c. LOC Commands: Performs both tasks correctly. 2. Best Gaze: Normal 3. Visual: No visual loss 4. Facial Palsy: Minor paralysis (flattened nasolabial fold, asymmetry on smiling) 5a. Left Arm: Drift; arm drifts downward but doesn?t hit the bed 5b. Right Arm: No drift; arm holds 90 (or 45) degrees for full 10 seconds 6a. Left Leg: Drift; leg falls by the end of 5-seconds, but does not hit bed 6b. Right Leg: No drift; leg holds 30-degree position for full 5 seconds 7. Limb Ataxia: Absent 8. Sensory: Normal; no sensory loss 9. Best Language: No aphasia; normal 10. Dysarthria: [id number] dysarthria; 11. Extinction and Inattention: No abnormality Total: 4 Physical Exam Const Orientation / Consciousness: awake, oriented to person, oriented to place and oriented to time HEENT normocephalic and head/scalp atraumatic Eyes Pupil: PERRL Resp normal respiratory effort Neuro Neuro Narrative: Awake and alert, oriented x 3, follows commands, EOMI, minimal L facial asymmetry, mild LUE pronator drift, LLE drift, 5/5 on the right, no aphasia or ataxia. Mild dysarthria, sensation intact to LT Lab / Micro Data 04/10/23 11:15 04/11/23 04:30 Labs: Laboratory Results - last 24 hr 04/10/23 16:30: POC Glucose 83 04/10/23 21:42: POC Glucose 97 04/11/23 04:30: Sodium 141, Potassium 4.7, Chloride 106, Carbon Dioxide 29.0, Anion Gap 6, BUN 33 H, Creatinine 1.23, Estim Creat Clear Calc 47.02, Est GFR (MDRD) Af Amer 73, Est GFR (MDRD) Non-Af 61, BUN/Creatinine Ratio 26.8 H, Glucose 112 H, Hemoglobin A1c 5.8 H, Calcium 8.7, Triglycerides 217 H, Cholesterol 143, LDL Cholesterol 66, VLDL Cholesterol 43 H, HDL Cholesterol 34 L 04/11/23 06:29: POC Glucose 125 H 04/11/23 11:09: POC Glucose 151 H Imagaing Radiology Impression Head/Neck CTA 04/10/23 11:15 IMPRESSION: Normal CTA Head and neck with contrast. N.B. : The above Results were Read Back by Babar Oliva MD to Dr Cesario DO, and understanding confirmed on 04/10/2023 11:59:14 (ET). Electronically Signed: Babar Oliva MD at 12:00 EST , ADDENDUM: 04/10/23 1207 IMPRESSION: Normal CTA Head and neck with contrast. N.B. : The above Results were Read Back by Babar Oliva MD to Dr Cesario DO, and understanding confirmed on 04/10/2023 11:59:14 (ET). Electronically Signed: Babar Oliva MD at 12:00 EST , Chest X-Ray 04/10/23 12:00 IMPRESSION: Normal x-ray examination of the chest. Electronically Signed: Babar Oliva MD at 12:24 EST , Brain MRI 04/10/23 15:41 IMPRESSION: Mild atrophy and moderate periventricular white matter ischemic changes.. Small foci of acute small vessel ischemic changes in the right parietal lobe Electronically Signed: Yosef Carvajal MD at 18:45 EST Reading Location ID and State: [facility] / [place] Tel , Service support , ADDENDUM: 04/10/232109 IMPRESSION: Mild atrophy and moderate periventricular white matter ischemic changes.. Small foci of acute small vessel ischemic changes in the right parietal lobe N.B. : The above Results were Read Back by Yosef Carvajal MD to Giovanni Addison MD, and understanding confirmed on 04/10/2023 21:03:19 (ET). Electronically Signed: Yosef Carvajal MD at 18:45 EST , Active Medications Active Medications Active Medications: Current Medications Generic Name Dose Route Start Last Admin Trade Name Freq PRN Reason Stop Dose Admin Acetaminophen 650 mg 04/10/23 15:41 Acetaminophen 325 Mg Tablet PO Q6H PRN PRN Pain 1-10 Or Fever>100.7 Ascorbic Acid 1,000 mg 04/11/23 10:00 04/11/23 08:11 Ascorbic Acid 500 Mg Tablet PO 1,000 mg DAILY ERNIE Administration Aspirin 81 mg 04/11/23 08:00 04/11/23 08:10 Aspirin 81 Mg Tab.Chew PO 81 mg DAILYCM ERNIE Administration Atorvastatin Calcium 5 mg 04/10/23 22:00 04/10/23 21:34 Atorvastatin Calcium 10 Mg Tablet PO 5 mg QHS ERNIE Administration Clopidogrel Bisulfate 75 mg 04/12/23 10:00 Clopidogrel Bisulfate 75 Mg Tablet PO DAILY ERNIE Cyanocobalamin 1,000 mcg 04/11/23 10:00 04/11/23 08:10 Cyanocobalamin 500 Mcg Tablet PO 1,000 mcg DAILY ERNIE Administration Dextrose 0 gm 04/10/23 15:41 Dextrose 50%-Water 25 Gm/50 Ml Disp.Syrin IV X1 PRN Hypoglycemia Protocol Enoxaparin Sodium 40 mg 04/11/23 10:00 04/11/23 08:12 Enoxaparin 40 Mg/0.4 Ml Syringe SC 40 mg DAILY ERNIE Administration Gabapentin 800 mg 04/10/23 15:41 04/11/23 05:32 Gabapentin 400 Mg Capsule PO 800 mg TID ERNIE Administration Gabapentin 100 mg 04/10/23 15:41 04/11/23 05:31 Gabapentin 100 Mg Capsule PO 100 mg TID ERNIE Administration Glucagon 1 mg 04/10/23 15:41 Glucagon 1 Mg/Ml Syringe IM X1 PRN Hypoglycemia Hydralazine HCl 5 mg 04/10/23 15:41 Hydralazine 20 Mg/Ml Vial IV Q30M PRN to maintain BP goals Sodium Chloride 250 mls @ 15 mls/hr 04/10/23 15:27 IV .[id number] PRN Additional IVPB Infusion Sodium Chloride 250 mls @ 15 mls/hr 04/10/23 15:27 IV .[id number] PRN Saline Flush Insulin Human Lispro 0 unit 04/10/23 16:00 04/11/23 11:14 Insulin Lispro 100 Unit/Ml Insuln.Pen SC 1 units TIDAC ERNIE Administration Protocol Labetalol HCl 10 - 20 mg 04/10/23 15:41 Labetalol (Prefilled) 20 Mg/4 Ml IV Q10M PRN PRN to Maintain BP Goals Losartan Potassium 50 mg 04/11/23 10:00 04/11/23 08:10 Losartan Potassium 50 Mg Tablet PO 50 mg DAILY ERNIE Administration Protocol Pantoprazole Sodium 40 mg 04/11/23 10:00 04/11/23 08:10 Pantoprazole Sodium 40 Mg Tablet PO 40 mg DAILY ERNIE Administration Sodium Chloride 10 - 40 ml 04/10/23 15:27 0.9% Saline Lock 10 Ml Syringe IV UD PRN SALINE FLUSH Tolterodine Tartrate 2 mg 04/11/23 10:00 04/11/23 08:10 Tolterodine Tartrate 2 Mg Cap.Sa PO 2 mg DAILY ERNIE Administration
--- NOTE | 2023-04-11 12:05 | CHAPLAIN ---
Type of Pastoral Visit ___ Initial Visit _x__ Follow-up Visit ___ On-call Visit ___ General Patient Visit ___ Spiritual Assessment ___ Family Conference ___ Bereavement ___ Rapid Response ___ Code Blue ___ Other (describe below) Pastoral Care Referral From ___ Patient _x__ Family ___ Nurse ___ Physician ___ Car Coupler ___ Airplane Gas Tank Liner Assembler ___ Other (describe below) Sacrament/Intervention _x__ Active listening ___ Anointing ___ Pentecostal ___ Bereavement ___ Communion ___ Edita exploration ___ ___ Life review ___ Prayer ___ Reconciliation ___ Sacrament of Sick _x__ Supportive presence ___ Wedding ___ Other (describe below) Pastoral Comments this patient and his were met yesterday for the stroke alert; pt reports on what is his status now and waiting for PT for their evaluation; pt states he is hopeful to get home today or tomorrow depending on the evaluation; pt states no particular concerns or needs at this time; spouse is also interactive and speaks of their edita community for support
[2023-04-11] MEDS: Acetaminophen 325 MG Tablet 650 MG PO (12:38)
--- NOTE | 2023-04-11 14:50 | CASEMGMT ---
RN?CM?MACHINE SETTER SUPERVISOR?CM?to room to meet with patient for initial transition planning/care coordination?assessment.?RN?CM?introduced self and role at [facility].? Pt voices understanding and consents to?assessment?at this time.? Pt sitting up in chair in room in no distress at this time.? Pt is A/O at this time but having difficulty recalling some of the following information. He did ask RN CM to call his for further info. Call placed to at this time. Care providers, pharmacy, and demographics verified/updated at this time. PCP: Dr Rodas Specialists: Preferred Pharmacy: Insurance: [facility] [employer]. Prescription Benefit:?Yes Living Will/HPOA:?Pt has both LW and HCPOA, who is his . LNOK: Stacey Living Arrangements: Lives w/ in one-story home home. Transportation: drives. DME: ?Pt has a cane, rollator and PAP. HHC/SNF: Pt was @ [facility] after back surgery 06/2022 and had HHC. Discussed therapy's recommendations for RU. and pt both state they think that is a good idea. Questions answered. prefers for pt to go to [facility] RU and declines wanting a list of other options at this time and pt is agreeable. PEDRO, [place], made aware. and pt deny having other questions/concerns at this time. PLAN:?RU ? Violette BSN?RN?CM
--- NOTE | 2023-04-11 15:25 | CASEMGMT ---
Per therapy patient would be a great candidate for the Acute Rehab Unit. Per RN CM patient and his are agreeable to [facility] Acute Rehab Unit. They declined a list of Acute Rehab Units as they would prefer to stay in [place]. SW made a referral to [facility] Acute Rehab. [place] URIOSTEGUI
[2023-04-11 16:56] LABS: Bedside Glucose 111 mg/dL (74-106)
[2023-04-11] MEDS: Atorvastatin Calcium 10 MG Tablet 5 MG PO (21:58)
[2023-04-11 22:24] LABS: Bedside Glucose 145 mg/dL (74-106)
[2023-04-12] VITALS (7 sets, daily range): BP systolic 111–156; BP diastolic 69–84; PULSE 72–85; RESP 16–18; TEMP 36.3–37; O2SAT 92–95; BMI 35.3
[2023-04-12] MEDS: Gabapentin 400 MG Capsule 800 MG PO ×3 (05:19→21:01)
[2023-04-12] MEDS: Gabapentin 100 MG Capsule PO ×3 (05:19→21:02)
[2023-04-12 06:49] LABS: Bedside Glucose 131 mg/dL (74-106)
--- NOTE | 2023-04-12 08:22 | PCM.PN.HOSP ---
Reason for Visit Reason for Visit: Diagnoses Cerebral infarction, unspecified (04/10/23) Subjective Subjective Feels well. Objective Data Objective Data Vital Signs: Vital Signs Temp Pulse Resp BP Pulse Ox O2 Del Method FiO2 37.0 C 73 16 124/79 H 93 Room Air 21 04/12/23 07:40 04/12/23 07:40 04/12/23 07:40 04/12/23 07:40 04/12/23 07:40 04/12/23 07:40 04/11/23 07:20 Oxygen Delivery Method Room Air Weight: 102.3 kg Body Mass Index (BMI) 35.3 Intake & Output: Intake and Output for Last 24 Hours 04/10/23 04/11/23 04/12/23 23:59 23:59 23:59 Intake Total 200 / 200 Output Total 850 / 850 200 / 200 Balance 200 / 200 -850 / -850 -200 / -200 Lab / Micro Data 04/10/23 11:15 04/11/23 04:30 Labs: Laboratory Results - last 24 hr 04/11/23 04:30: Hemoglobin A1c 5.8 H 04/11/23 11:09: POC Glucose 151 H 04/11/23 16:38: POC Glucose 111 H 04/11/23 22:03: POC Glucose 145 H 04/12/23 06:31: POC Glucose 131 H Radiography Diagnostic Testing: Radiology Impression Echocardiogram 04/10/23 15:41 Interpretation Summary The estimated ejection fraction is 60 %. Mild concentric left ventricular hypertrophy. Bubble contrast study negative for right to left interatrial shunt. No prior study for comparison. Ordering Physician: Guilherme Herrera Referring Physician: Yosef Rodas Performed By: Che Garcia, JENI, RVT Physical Exam Const alert and no apparent distress HEENT head/scalp atraumatic Neuro Sensorium / Orientation: awake and alert Psych affect normal Assessment & Plan Assessment/Plan (1) Stroke: QUALIFIERS: CVA mechanism: unspecified Qualified Code(s): I63.9 - Cerebral infarction, unspecified PLAN: Onset was the at 2200. Patient did not seek attention until the . Patient is out of the window for tPA. No LVO on CTA so no extraction is necessary at this time. Continue with aspirin. MRI brain: mild atropy and moderate periventricular white matter ischemic changes. Small foci of acute small vessel ischemic changes in the right parietal lobe. , 2D echocardiogram, fasting lipid panel. Consult physical, occupational and speech therapy. Load w clopidogrel and daily clopidogrel. PT OT meggan. Seen by neurology on reevaluation recommending aspirin and clopidogrel for 21 days and just to continue with aspirin thereafter. Follow-up with neurology Echo showed EF 60%. PLAN: Plan Chronic conditions Diabetes mellitus type 2: Hold metformin as he received IV contrast. Hold off on that for 5 days. Sliding scale insulin for now. Check an A1c. Hypertension: Allow permissive hypertension for 24 hours after stroke. Resume losartan on the . Neuropathy: Patient does take large doses of gabapentin. Questionable Parkinson's. Patient's current presentation is not consistent with Parkinson's. Patient is seeing a neurologist. Patient does not really have any overt signs of Parkinson's on my evaluation but will defer to outpatient neurology. I did express concern for the large quantities of gabapentin that he does take if that is a contributing factor in regards to his weakness and confusion that he may be experiencing chronically. VTE prophylaxis with enoxaparin. Disposition to acute rehab. Waiting on insurance authorization. Waiting on approval which likely will not be obtained until next week. Will de-escalate the patient status to [facility]. Charges/Coding Visit Charges Inpatient E&M: 41509 Subs Hosp L2
[2023-04-12] MEDS: Tolterodine Tartrate 2 MG CAP.SA PO (09:05)
[2023-04-12] MEDS: Losartan Potassium 50 MG Tablet PO (09:05)
[2023-04-12] MEDS: Clopidogrel Bisulfate 75 MG Tablet PO (09:06)
[2023-04-12] MEDS: Aspirin 81 MG TAB.CHEW PO (09:06)
[2023-04-12] MEDS: Cyanocobalamin 500 MCG Tablet 1000 MCG PO (09:06)
[2023-04-12] MEDS: Enoxaparin 40 MG/0.4 ML Syringe SC (09:06)
[2023-04-12] MEDS: Ascorbic Acid 500 MG Tablet 1000 MG PO (09:06)
[2023-04-12] MEDS: Pantoprazole Sodium 40 MG Tablet PO (09:06)
[2023-04-12] MEDS: Insulin Lispro 100 UNIT/ML INSULN.PEN SC (11:25)
[2023-04-12 11:57] LABS: Bedside Glucose 194 mg/dL (74-106)
--- NOTE | 2023-04-12 12:16 | CASEMGMT ---
[facility] Acute Rehab accepted patient and pre-cert has been started. SW spoke with patient and his and let them know this information. They were both pleased. SW did explain that patient will stay at [facility] until insurance approves and this could be next week due to the holidays. Plan: [facility] Acute Rehab Unit pending approval. [place] URIOSTEGUI
[2023-04-12 17:40] LABS: Bedside Glucose 107 mg/dL (74-106)
[2023-04-12] MEDS: Atorvastatin Calcium 10 MG Tablet 5 MG PO (21:02)
[2023-04-12 23:43] LABS: Bedside Glucose 137 mg/dL (74-106)
[2023-04-13 01:15] VITALS: BMI 35.3
[2023-04-13 03:01] VITALS: BP 116/71; PULSE 78; RESP 18; TEMP 36.5; O2SAT 92
[2023-04-13] MEDS: Gabapentin 100 MG Capsule PO ×3 (06:41→21:23)
[2023-04-13] MEDS: Gabapentin 400 MG Capsule 800 MG PO ×3 (06:41→21:23)
[2023-04-13 07:14] LABS: Bedside Glucose 126 mg/dL (74-106)
--- NOTE | 2023-04-13 07:53 | PN.HOSP_ITS ---
Reason for Visit Reason for Visit: Diagnoses Cerebral infarction, unspecified (04/10/23) Subjective Subjective Some difficulty getting around. Objective Data Objective Data Vital Signs: Vital Signs Temp Pulse Resp BP Pulse Ox O2 Del Method FiO2 36.5 C L 78 18 116/71 92 CPAP 21 04/13/23 03:01 04/13/23 03:01 04/13/23 03:01 04/13/23 03:01 04/13/23 03:01 04/13/23 03:01 04/11/23 07:20 Oxygen Delivery Method CPAP Weight: 102.3 kg Body Mass Index (BMI) 35.3 Intake & Output: Intake and Output for Last 24 Hours 04/11/23 04/12/23 04/13/23 23:59 23:59 23:59 Intake Total 930 / 930 Output Total 850 / 850 1650 / 1650 250 / 250 Balance -850 / -850 -720 / -720 -250 / -250 Lab / Micro Data 04/10/23 11:15 04/11/23 04:30 Labs: Laboratory Results - last 24 hr 04/12/23 11:23: POC Glucose 194 H 04/12/23 17:01: POC Glucose 107 H 04/12/23 20:57: POC Glucose 137 H 04/13/23 06:40: POC Glucose 126 H Physical Exam Const alert and no apparent distress Constitutional Narrative: Moves all extremities spontaneously. Resp normal respiratory effort and no retractions Cardio regular rate and regular rhythm Neuro no focal motor deficits Sensorium / Orientation: awake and alert Assessment & Plan Assessment/Plan (1) Stroke: QUALIFIERS: CVA mechanism: unspecified Qualified Code(s): I63.9 - Cerebral infarction, unspecified PLAN: Onset was the at 2200. Patient did not seek attention until the . Patient is out of the window for tPA. No LVO on CTA so no extraction is necessary at this time. Continue with aspirin. MRI brain: mild atropy and moderate periventricular white matter ischemic changes. Small foci of acute small vessel ischemic changes in the right parietal lobe. , 2D echocardiogram, fasting lipid panel. Consult physical, occupational and speech therapy. Load w clopidogrel and daily clopidogrel. PT OT eval. Seen by neurology on reevaluation recommending aspirin and clopidogrel for 21 days and just to continue with aspirin thereafter. Follow-up with neurology Echo showed EF 60%. PLAN: Plan Chronic conditions * Diabetes mellitus type 2: Hold metformin as he received IV contrast. Hold off on that for 5 days. Sliding scale insulin for now. A1c 5.8 * Hypertension: Allow permissive hypertension for 24 hours after stroke. Resume losartan on the . * Neuropathy: Patient does take large doses of gabapentin. * Questionable Parkinson's. Patient's current presentation is not consistent with Parkinson's. Patient is seeing a neurologist. Patient does not really have any overt signs of Parkinson's on my evaluation but will defer to outpatient neurology. I did express concern for the large quantities of gabapentin that he does take if that is a contributing factor in regards to his weakness and confusion that he may be experiencing chronically. VTE prophylaxis with enoxaparin. Disposition to acute rehab. Waiting on insurance authorization. Waiting on approval which likely will not be obtained until next week. Will de-escalate the patient status to [facility] as he has been medically stable for discharge on the . Charges/Coding Visit Charges Inpatient E&M: 60828 Subs Hosp L1
[2023-04-13 08:05] VITALS: BP 123/80; PULSE 76; RESP 18; TEMP 36.6; O2SAT 93
[2023-04-13] MEDS: Cyanocobalamin 500 MCG Tablet 1000 MCG PO (08:07)
[2023-04-13] MEDS: Clopidogrel Bisulfate 75 MG Tablet PO (08:07)
[2023-04-13] MEDS: Ascorbic Acid 500 MG Tablet 1000 MG PO (08:07)
[2023-04-13] MEDS: Aspirin 81 MG TAB.CHEW PO (08:08)
[2023-04-13] MEDS: Pantoprazole Sodium 40 MG Tablet PO (08:08)
[2023-04-13] MEDS: Losartan Potassium 50 MG Tablet PO (08:08)
[2023-04-13] MEDS: Tolterodine Tartrate 2 MG CAP.SA PO (08:08)
[2023-04-13] MEDS: Enoxaparin 40 MG/0.4 ML Syringe SC (08:08)
[2023-04-13] MEDS: Insulin Lispro 100 UNIT/ML INSULN.PEN SC (11:04)
[2023-04-13 11:37] LABS: Bedside Glucose 161 mg/dL (74-106)
[2023-04-13 15:35] VITALS: BP 108/67; PULSE 87; RESP 14; TEMP 36.6; O2SAT 93
[2023-04-13 16:06] LABS: Bedside Glucose 148 mg/dL (74-106)
[2023-04-13 17:00] VITALS: BMI 35.3
[2023-04-13] MEDS: Atorvastatin Calcium 10 MG Tablet 5 MG PO (21:22)
[2023-04-13 21:35] VITALS: BP 120/70; PULSE 83; RESP 16; TEMP 36.9; O2SAT 94
[2023-04-13 22:02] LABS: Bedside Glucose 148 mg/dL (74-106)
[2023-04-13 22:27] VITALS: BMI 35.3
[2023-04-14 03:35] VITALS: BP 132/79; PULSE 77; RESP 18; TEMP 36.7; O2SAT 93
[2023-04-14] MEDS: Gabapentin 400 MG Capsule 800 MG PO ×3 (06:03→21:28)
[2023-04-14] MEDS: Gabapentin 100 MG Capsule PO ×3 (06:04→21:29)
[2023-04-14 06:41] LABS: Bedside Glucose 140 mg/dL (74-106)
[2023-04-14 07:45] VITALS: BP 127/65; PULSE 75; RESP 18; TEMP 36.6; O2SAT 92
--- NOTE | 2023-04-14 07:46 | PN.HOSP_ITS ---
Reason for Visit Reason for Visit: Diagnoses Cerebral infarction, unspecified (04/10/23) Subjective Subjective No new issues. Complains of left-sided paresthesias. Objective Data Objective Data Vital Signs: Vital Signs Temp Pulse Resp BP Pulse Ox O2 Del Method FiO2 36.7 C 77 18 132/79 H 93 CPAP 21 04/14/23 03:35 04/14/23 03:35 04/14/23 03:35 04/14/23 03:35 04/14/23 03:35 04/14/23 03:40 04/11/23 07:20 Oxygen Delivery Method CPAP Weight: 102.3 kg Body Mass Index (BMI) 35.3 Intake & Output: Intake and Output for Last 24 Hours 04/12/23 04/13/23 04/14/23 23:59 23:59 23:59 Intake Total 930 / 930 580 / 580 240 / 240 Output Total 1650 / 1650 850 / 850 250 / 250 Balance -720 / -720 -270 / -270 -10 / -10 Lab / Micro Data 04/10/23 11:15 04/11/23 04:30 Labs: Laboratory Results - last 24 hr 04/13/23 11:01: POC Glucose 161 H 04/13/23 15:34: POC Glucose 148 H 04/13/23 21:15: POC Glucose 148 H 04/14/23 06:03: POC Glucose 140 H Physical Exam Const alert and no apparent distress HEENT head/scalp atraumatic Neuro Neuro Narrative: Muscle strength 4-5 in left upper and left lower extremity. Sensorium / Orientation: awake and alert Assessment & Plan Assessment/Plan (1) Stroke: QUALIFIERS: CVA mechanism: unspecified Qualified Code(s): I63.9 - Cerebral infarction, unspecified PLAN: Onset was the at 2200. Patient did not seek attention until the . Patient is out of the window for tPA. No LVO on CTA so no extraction is necessary at this time. Continue with aspirin. MRI brain: mild atropy and moderate periventricular white matter ischemic changes. Small foci of acute small vessel ischemic changes in the right parietal lobe. , 2D echocardiogram, fasting lipid panel. Consult physical, occupational and speech therapy. Load w clopidogrel and daily clopidogrel. PT OT eval. Seen by neurology on reevaluation recommending aspirin and clopidogrel for 21 days and just to continue with aspirin thereafter. Follow-up with neurology Echo showed EF 60%. PLAN: Plan Chronic conditions * Diabetes mellitus type 2: Hold metformin as he received IV contrast. Hold off on that for 5 days. Sliding scale insulin for now. A1c 5.8 * Hypertension: Allow permissive hypertension for 24 hours after stroke. Resume losartan on the . * Neuropathy: Patient does take large doses of gabapentin. * Questionable Parkinson's. Patient's current presentation is not consistent with Parkinson's. Patient is seeing a neurologist. Patient does not really have any overt signs of Parkinson's on my evaluation but will defer to outpatient neurology. I did express concern for the large quantities of gabapentin that he does take if that is a contributing factor in regards to his weakness and confusion that he may be experiencing chronically. VTE prophylaxis with enoxaparin. Disposition to acute rehab. Waiting on insurance authorization. Waiting on approval which likely will not be obtained until next week. Will de-escalate the patient status to [facility] as he has been medically stable for discharge on the . Charges/Coding Visit Charges Inpatient E&M: 47882 Subs Hosp L2
[2023-04-14] MEDS: Docusate Sodium 100 MG Capsule PO (07:51)
[2023-04-14] MEDS: Enoxaparin 40 MG/0.4 ML Syringe SC (07:52)
[2023-04-14] MEDS: Ascorbic Acid 500 MG Tablet 1000 MG PO (07:52)
[2023-04-14] MEDS: Aspirin 81 MG TAB.CHEW PO (07:52)
[2023-04-14] MEDS: Pantoprazole Sodium 40 MG Tablet PO (07:52)
[2023-04-14] MEDS: Tolterodine Tartrate 2 MG CAP.SA PO (07:53)
[2023-04-14] MEDS: Cyanocobalamin 500 MCG Tablet 1000 MCG PO (07:53)
[2023-04-14] MEDS: Clopidogrel Bisulfate 75 MG Tablet PO (07:53)
[2023-04-14] MEDS: Losartan Potassium 50 MG Tablet PO (07:54)
[2023-04-14 11:51] LABS: Bedside Glucose 143 mg/dL (74-106)
[2023-04-14 13:59] VITALS: BP 138/65; PULSE 87; RESP 18; TEMP 36.7; O2SAT 95
[2023-04-14] MEDS: Insulin Lispro 100 UNIT/ML INSULN.PEN SC (16:07)
[2023-04-14 16:46] LABS: Bedside Glucose 164 mg/dL (74-106)
[2023-04-14 17:00] VITALS: BMI 35.3
[2023-04-14 20:00] VITALS: BP 128/70; PULSE 83; RESP 18; TEMP 36.8; O2SAT 95
[2023-04-14 20:50] VITALS: BMI 35.3
[2023-04-14] MEDS: Atorvastatin Calcium 10 MG Tablet 5 MG PO (21:28)
[2023-04-14 22:49] LABS: Bedside Glucose 198 mg/dL (74-106)
[2023-04-15 03:00] VITALS: BP 137/86; PULSE 79; RESP 18; TEMP 36.9; O2SAT 96
[2023-04-15] MEDS: Gabapentin 100 MG Capsule PO ×3 (06:00→20:58)
[2023-04-15] MEDS: Gabapentin 400 MG Capsule 800 MG PO ×3 (06:01→20:58)
[2023-04-15 06:40] LABS: Bedside Glucose 116 mg/dL (74-106)
--- NOTE | 2023-04-15 07:42 | PN.HOSP_ITS ---
Reason for Visit Reason for Visit: Diagnoses Cerebral infarction, unspecified (04/10/23) Subjective Subjective Still with left sided weakness. Objective Data Objective Data Vital Signs: Vital Signs Temp Pulse Resp BP Pulse Ox O2 Del Method FiO2 36.9 C 79 18 137/86 H 96 Room Air 21 04/15/23 03:00 04/15/23 03:00 04/15/23 03:00 04/15/23 03:00 04/15/23 03:00 04/15/23 03:00 04/11/23 07:20 Oxygen Delivery Method Room Air Weight: 102.3 kg Body Mass Index (BMI) 35.3 Intake & Output: Intake and Output for Last 24 Hours 04/13/23 04/14/23 04/15/23 23:59 23:59 23:59 Intake Total 580 / 580 680 / 680 150 / 150 Output Total 850 / 850 400 / 400 400 / 400 Balance -270 / -270 280 / 280 -250 / -250 Lab / Micro Data 04/10/23 11:15 04/11/23 04:30 Labs: Laboratory Results - last 24 hr 04/14/23 11:26: POC Glucose 143 H 04/14/23 16:03: POC Glucose 164 H 04/14/23 21:27: POC Glucose 198 H 04/15/23 05:59: POC Glucose 116 H Physical Exam Const alert and no apparent distress Neuro Neuro Narrative: Muscle strength 5 out of 5 in the right upper and right lower extremity. 4-5 in the left upper and left lower extremity. Sensorium / Orientation: awake and alert Assessment & Plan Assessment/Plan (1) Stroke: QUALIFIERS: CVA mechanism: unspecified Qualified Code(s): I63.9 - Cerebral infarction, unspecified PLAN: Onset was the at 2200. Patient did not seek attention until the . Patient is out of the window for tPA. No LVO on CTA so no extraction is necessary at this time. Continue with aspirin. MRI brain: mild atropy and moderate periventricular white matter ischemic changes. Small foci of acute small vessel ischemic changes in the right parietal lobe. , 2D echocardiogram, fasting lipid panel. Consult physical, occupational and speech therapy. Load w clopidogrel and daily clopidogrel. PT OT eval. Seen by neurology on reevaluation recommending aspirin and clopidogrel for 21 days and just to continue with aspirin thereafter. Follow-up with neurology Echo showed EF 60%. LDL at goal at 66. PLAN: Plan Chronic conditions * Diabetes mellitus type 2: Hold metformin as he received IV contrast. Hold off on that for 5 days. Sliding scale insulin for now. A1c 5.8 * Hypertension: Allow permissive hypertension for 24 hours after stroke. Resume losartan on the . * Neuropathy: Patient does take large doses of gabapentin. * Questionable Parkinson's. Patient's current presentation is not consistent with Parkinson's. Patient is seeing a neurologist. Patient does not really have any overt signs of Parkinson's on my evaluation but will defer to outpatient neurology. I did express concern for the large quantities of gabapentin that he does take if that is a contributing factor in regards to his weakness and confusion that he may be experiencing chronically. VTE prophylaxis with enoxaparin. Disposition to acute rehab. Waiting on insurance authorization. Waiting on approval which likely will not be obtained until next week. Will de-escalate the patient status to [facility] as he has been medically stable for discharge on the . Charges/Coding Visit Charges Inpatient E&M: 79644 [facility] Hosp L1
[2023-04-15 07:45] VITALS: BP 113/76; PULSE 74; RESP 18; TEMP 36.4; O2SAT 95
[2023-04-15] MEDS: Enoxaparin 40 MG/0.4 ML Syringe SC (07:47)
[2023-04-15] MEDS: Ascorbic Acid 500 MG Tablet 1000 MG PO (07:47)
[2023-04-15] MEDS: Cyanocobalamin 500 MCG Tablet 1000 MCG PO (07:48)
[2023-04-15] MEDS: Clopidogrel Bisulfate 75 MG Tablet PO (07:48)
[2023-04-15] MEDS: Losartan Potassium 50 MG Tablet PO (07:48)
[2023-04-15] MEDS: Tolterodine Tartrate 2 MG CAP.SA PO (07:48)
[2023-04-15] MEDS: Pantoprazole Sodium 40 MG Tablet PO (07:48)
[2023-04-15] MEDS: Aspirin 81 MG TAB.CHEW PO (07:48)
[2023-04-15 11:35] VITALS: BP 129/89; PULSE 80; RESP 18; TEMP 36.6; O2SAT 93
[2023-04-15 11:39] VITALS: BMI 35.3
[2023-04-15 11:45] LABS: Bedside Glucose 127 mg/dL (74-106)
--- NOTE | 2023-04-15 13:20 | CPS ---
Pt just wants to do I.S., encouraged hourly use.
[2023-04-15 17:20] VITALS: BP 120/104; PULSE 85; RESP 20; TEMP 37.1; O2SAT 96
[2023-04-15] MEDS: Insulin Lispro 100 UNIT/ML INSULN.PEN SC (17:24)
[2023-04-15] MEDS: Docusate Sodium 100 MG Capsule PO (17:25)
[2023-04-15 18:16] LABS: Bedside Glucose 173 mg/dL (74-106)
[2023-04-15 20:49] VITALS: BP 125/73; PULSE 78; RESP 18; TEMP 36.5; O2SAT 92
[2023-04-15] MEDS: Atorvastatin Calcium 10 MG Tablet 5 MG PO (20:57)
[2023-04-15 21:17] LABS: Bedside Glucose 130 mg/dL (74-106)
[2023-04-15 23:19] VITALS: BMI 35.3
[2023-04-16 03:20] VITALS: BP 148/82; PULSE 77; RESP 16; TEMP 36.7; O2SAT 96
[2023-04-16] MEDS: Gabapentin 100 MG Capsule PO ×2 (06:23→13:17)
[2023-04-16] MEDS: Gabapentin 400 MG Capsule 800 MG PO ×2 (06:23→13:17)
[2023-04-16 07:01] LABS: Bedside Glucose 148 mg/dL (74-106)
--- NOTE | 2023-04-16 08:06 | PN.HOSP_ITS ---
Reason for Visit Reason for Visit: Diagnoses Cerebral infarction, unspecified (04/10/23) Subjective Subjective Still left-sided weakness. No acute changes Objective Data Objective Data Vital Signs: Vital Signs Temp Pulse Resp BP Pulse Ox O2 Del Method FiO2 36.7 C 77 16 148/82 H 96 Room Air 21 04/16/23 03:20 04/16/23 03:20 04/16/23 03:20 04/16/23 03:20 04/16/23 03:20 04/16/23 07:55 04/11/23 07:20 Oxygen Delivery Method Room Air Weight: 102.3 kg Body Mass Index (BMI) 35.3 Intake & Output: Intake and Output for Last 24 Hours 04/14/23 04/15/23 04/16/23 23:59 23:59 23:59 Intake Total 680 / 680 850 / 850 Output Total 400 / 400 600 / 600 400 / 400 Balance 280 / 280 250 / 250 -400 / -400 Lab / Micro Data 04/10/23 11:15 04/11/23 04:30 Labs: Laboratory Results - last 24 hr 04/15/23 11:25: POC Glucose 127 H 04/15/23 17:23: POC Glucose 173 H 04/15/23 20:51: POC Glucose 130 H 04/16/23 06:21: POC Glucose 148 H Physical Exam Const alert and no apparent distress HEENT head/scalp atraumatic Neuro Neuro Narrative: Muscle strength 5 out of 5 in upper extremities bilaterally. Ataxia with finger-nose on the left. 4-5 muscle strength in the left lower extremity. Assessment & Plan Assessment/Plan (1) Stroke: QUALIFIERS: CVA mechanism: unspecified Qualified Code(s): I63.9 - Cerebral infarction, unspecified PLAN: Onset was the 19th at 2200. Patient did not seek attention until the 20t h. Patient is out of the window for tPA. No LVO on CTA so no extraction is necessary at this time. Continue with aspirin. MRI brain: mild atropy and moderate periventricular white matter ischemic ch anges. Small foci of acute small vessel ischemic changes in the right parietal lobe. , 2D echocardiogram, fasting lipid panel. Consult physical, occupational and speech therapy. Load w clopidogrel and daily clopidogrel. PT OT eval. Seen by neurology on reevaluation recommending aspirin and clopidogrel for 21 days and just to continue with aspirin thereafter. Follow-up with neurology Echo showed EF 60%. LDL at goal at 66. PLAN: Plan Chronic conditions * Diabetes mellitus type 2: Hold metformin as he received IV contrast. Hold off on that for 5 days. Sliding scale insulin for now. A1c 5.8 * Hypertension: Allow permissive hypertension for 24 hours after stroke. Resume losartan on the . * Neuropathy: Patient does take large doses of gabapentin. * Questionable Parkinson's. Patient's current presentation is not consistent with Parkinson's. Patient is seeing a neurologist. Patient does not really have any overt signs of Parkinson's on my evaluation but will defer to outpatient neurology. I did express concern for the large quantities of gabapentin that he does take if that is a contributing factor in regards to his weakness and confusion that he may be experiencing chronically. VTE prophylaxis with enoxaparin. Disposition to acute rehab. Patient has been medically stable for discharge since the .
[2023-04-16 08:55] VITALS: BP 118/97; PULSE 77; RESP 18; TEMP 36.3; O2SAT 94
[2023-04-16] MEDS: Tolterodine Tartrate 2 MG CAP.SA PO (08:57)
[2023-04-16] MEDS: Ascorbic Acid 500 MG Tablet 1000 MG PO (08:57)
[2023-04-16] MEDS: Pantoprazole Sodium 40 MG Tablet PO (08:58)
[2023-04-16] MEDS: Aspirin 81 MG TAB.CHEW PO (08:58)
[2023-04-16] MEDS: Cyanocobalamin 500 MCG Tablet 1000 MCG PO (08:58)
[2023-04-16] MEDS: Clopidogrel Bisulfate 75 MG Tablet PO (08:58)
[2023-04-16] MEDS: Enoxaparin 40 MG/0.4 ML Syringe SC (08:58)
[2023-04-16] MEDS: Losartan Potassium 50 MG Tablet PO (08:58)
--- NOTE | 2023-04-16 11:43 | PCM.DC.SUM ---
Providers Date of Admission: 04/10/23 Primary Care Physician: Dr. Yosef Rodas MD Consultations 04/10/23 15:41 Consult: Tele-Neurology Routine Consulting Provider: [facility] Reason for Consult: Acute Ischemic Stroke/TIA EMERGENT Consult: No MD Notified: Yes Date Notified: 04/10/23 Time Notified: 13:19 Method of Notification: ED Physician Initiated Nursing Unit Staff Notify [facility] of Tele-Neurology Consult: Yes Reason For Visit: CVA Diagnosis Discharge Diagnosis (1) Stroke: Status: Acute Code(s): I63.9 - Cerebral infarction, unspecified Qualifiers: CVA mechanism: unspecified Qualified Code(s): I63.9 - Cerebral infarction, unspecified Plan: Patient presents with delayed onset of left-sided weakness. Patient was found to have a right parietal stroke. Patient was seen by [facility] and recommended 3 weeks of dual antiplatelet therapy with aspirin and clopidogrel. Afterwards, patient to continue with aspirin. Patient had LDL that was at goal so continue with the atorvastatin that was previously ordered at home. Patient will be discharged to acute rehab in stable condition. Onset was the at 2200. Patient did not seek attention until the . Patient is out of the window for tPA. No LVO on CTA so no extraction is necessary at this time. Continue with aspirin. MRI brain: mild atropy and moderate periventricular white matter ischemic changes. Small foci of acute small vessel ischemic changes in the right parietal lobe. , 2D echocardiogram, fasting lipid panel. Consult physical, occupational and speech therapy. Load w clopidogrel and daily clopidogrel. PT OT meggan. Seen by neurology on reevaluation recommending aspirin and clopidogrel for 21 days and just to continue with aspirin thereafter. Follow-up with neurology Echo showed EF 60%. LDL at goal at 66. Plan Chronic conditions Diabetes mellitus type 2: Hold metformin as he received IV contrast. Hold off on that for 5 days. Sliding scale insulin for now. A1c 5.8 Hypertension: Allow permissive hypertension for 24 hours after stroke. Resume losartan on the . Neuropathy: Patient does take large doses of gabapentin. Questionable Parkinson's. Patient's current presentation is not consistent with Parkinson's. Patient is seeing a neurologist. Patient does not really have any overt signs of Parkinson's on my evaluation but will defer to outpatient neurology. I did express concern for the large quantities of gabapentin that he does take if that is a contributing factor in regards to his weakness and confusion that he may be experiencing chronically. VTE prophylaxis with enoxaparin. Disposition to acute rehab. Patient has been medically stable for discharge since the . Medications at Discharge Home Medications gabapentin 100 mg capsule 100 mg PO TID NERVE PAIN 09/14/17 gabapentin 400 mg capsule 800 mg PO TID NERVE PAIN 09/14/17 losartan 50 mg tablet 50 mg PO DAILY BLOOD PRESSURE 09/14/17 metformin 1,000 mg tablet 1,000 mg PO BID DIABETES 09/14/17 simvastatin 10 mg tablet 10 mg PO QHS CHOLESTEROL 09/14/17 cyanocobalamin (vitamin B-12) 1,000 mcg tablet 1,000 mcg PO DAILY SUPPLEMENT 07/21/18 walker #1 ea 07/21/18 ascorbic acid (vitamin C) 1,000 mg tablet 1 g PO DAILY SUPPLEMENT 04/10/23 aspirin 81 mg chewable tablet 81 mg PO DAILY HEART HEALTH 04/10/23 omeprazole 40 mg capsule,delayed release 40 mg PO DAILY ACID REFLUX 04/10/23 oxybutynin chloride 10 mg tablet,extended release 24 hr 10 mg PO DAILY OVERACTIVE BLADDER 04/10/23 acetaminophen 325 mg tablet 650 mg (2 x 325 mg) PO Q6H PRN PRN Pain 1-10 Or Fever>100.7 #0 tabs 04/16/23 clopidogrel 75 mg tablet 75 mg PO DAILY #0 tabs 04/16/23 Hospital Course Procedures 2-D Echocardiogram Summary of Care Provided Minutes Spent on Discharge: 32 Weight / BMI Weight Weight: 102.3 kg Body Mass Index (BMI) 35.3 ABG / Lab / Microbiology Data 04/10/23 11:15 04/11/23 04:30 Laboratory: Laboratory Results - last 24 hr 04/15/23 11:25: POC Glucose 127 H 04/15/23 17:23: POC Glucose 173 H 04/15/23 20:51: POC Glucose 130 H 04/16/23 06:21: POC Glucose 148 H D/C Instructions Discharge Diet: Low fat / Low cholesterol and 2000 Calorie Control Diet Meaningful Use Info Meaningful Use Diagnoses (Choose all that apply): Ischemic CVA CVA Therapy Assessed for PT,OT and/or ST?: Yes Ischemic Stroke Antithrombotic order at d/c?: No Reason antithrombotic not ordered: Treatment not Indicated Dx of Atrial fib/flutter?: No Anticoagulant at discharge?: No Reason anticoagulant not ordered: Treatment not Indicated Statins at discharge?: Yes Primary Dx Acute Ischemic CVA?: Yes IV thrombolytic ordered during stay?: No Reason IV thrombolytic not ordered: Procedure not Indicated Discharge Plan Admission Admit Date/Time: 04/10/23 13:16 Primary Reason for Your Visit: Stroke Attending Provider: Guilherme Herrera Primary Care Provider: Yosef Rodas Discharge Orders/Prescriptions Prescriptions: New acetaminophen 325 mg Tablet 650 mg PO Q6H PRN PRN (Reason: Pain 1-10 Or Fever>100.7) Qty: 0 0RF clopidogrel 75 mg Tablet 75 mg PO DAILY Qty: 0 0RF Continued losartan 50 MG tablet 50 mg PO DAILY gabapentin 400 MG capsule 800 mg PO TID simvastatin 10 MG tablet 10 mg PO QHS metformin 1,000 MG tablet 1,000 mg PO BID gabapentin 100 MG capsule 100 mg PO TID cyanocobalamin (vitamin B-12) 1,000 MCG tablet 1,000 mcg PO DAILY (DME) walker 1 EACH misc 1 ea MC DAILY Qty: 1 0RF omeprazole 40 mg capsule,delayed release(DR/EC) 40 mg PO DAILY oxybutynin chloride 10 mg tablet extended release 24hr 10 mg PO DAILY ascorbic acid (vitamin C) 1,000 mg tablet 1 g PO DAILY aspirin 81 MG tablet,chewable 81 mg PO DAILY Discontinued diclofenac sodium 75 mg tablet,delayed release (DR/EC) 75 mg PO BID Referrals / Follow Up: [facility] [Provider Group] - Within 1 Month Yosef Rodas MD [Primary Care Provider] - Within 2 Weeks Disposition Disposition (needs filled in before D/C Order can be placed): Inpatient Rehab Unit/Facility Charges/Coding Visit Charges Inpatient E&M: 88377 Disch Hosp >30min
[2023-04-16 11:59] LABS: Bedside Glucose 147 mg/dL (74-106)
--- NOTE | 2023-04-16 12:09 | CASEMGMT ---
Social Work Received notice from Martha in admissions at [facility]. Insurance has authorized admission. Updated patient, , Dr. Herrera, and RN Roxy. Faxed discharge summary to the Rehab Unit, and RN will call report and schedule time for admission to the RU. No other services requested or indicated. PLAN: Inpatient rehab unit. -AYAKA Sahu
--- NOTE | 2023-04-16 13:26 | NURSING ---
Called report to inpatient rehab at [facility]
[2023-04-16 13:31] VITALS: BP 115/65; PULSE 92; RESP 18; TEMP 36.4; O2SAT 96
[2023-04-16 13:39] VITALS: BMI 35.3
== END 2023-04-16 13:48 | DRG 65 ==
LOC: ED 12:45 → PCU 14:14
PROVIDERS: Emergency Provider Emergency Medicine; PCP Family Medicine
DX: I63.9 Cerebral infarction, unspecified (principal); G81.94 Hemiplegia, unspecified affecting left nondominant side; E11.40 Type 2 diabetes mellitus with diabetic neuropathy, unspecified; I10 Essential (primary) hypertension; E78.5 Hyperlipidemia, unspecified; K21.9 Gastro-esophageal reflux disease without esophagitis; R29.810 Facial weakness; R47.81 Slurred speech; R29.702 NIHSS score 2; R29.704 NIHSS score 4; Z79.82 Long term (current) use of aspirin; Z79.84 Long term (current) use of oral hypoglycemic drugs; Z79.899 Other long term (current) drug therapy; Z87.891 Personal history of nicotine dependence
CPT/HCPCS: 36415; 70450; 70496; 70498; 70551; 71045; 80048; 80061; 82962; 83036; 84484; 85025; 85610; 85730; 92523; 92610; 93005; 93306; 94668; 94762; 97110; 97116; 97162; 97166; 97530; 97535; 99285; Q9967

== ENCOUNTER 2023-04-16 13:56 | Inpatient (IN) | payer MEDICARE, SELFPAY ==
[2023-04-16 14:38] VITALS: BMI 35.2
[2023-04-16 14:45] VITALS: BP 125/73; PULSE 90; RESP 17; TEMP 36.6
[2023-04-16 15:46] VITALS: BMI 35.2
[2023-04-16 17:17] LABS: Bedside Glucose 151 mg/dL (74-106)
[2023-04-16] MEDS: metFORMIN HCl 1,000 MG Tablet 1000 MG PO (17:20)
[2023-04-16] MEDS: Insulin Lispro 100 UNIT/ML INSULN.PEN SC ×2 (17:20→22:15)
--- NOTE | 2023-04-16 17:22 | HP.PCM_ITS ---
HPI - General General Date of Admission: 04/16/23 Date of Service: 04/17/23 Chief Complaint: post stroke debility HPI Narrative ESSIE LOCK, is a 77 M with a PMH of diabetes mellitus type 2, GERD, hypertension, hyperlipidemia, diabetic neuropathy, overactive bladder, morbid obesity with a BMI of 35, osteoarthritis and sleep apnea who presented to the emergency department at [facility] on 04/10/2023 complaining of left-sided weakness that had started the preceding evening at approximately [address] brain revealed chronic involutional changes of the brain with no evidence of acute CVA. Teleneurology was consulted and recommended admission to the hospital for evaluation and additional testing. CTA of the head and neck was normal. MRI of the brain showed mild atrophy and moderate periventricular white matter ischemic changes. There were small foci of acute small vessel ischemic changes in the right parietal lobe. He was outside the window for tPA and CTA showed no large vessel occlusion so thrombectomy/vascular intervention was not indicated. After the results of the MRI were available he was loaded with clopidogrel and started on a daily dose. Neurology recommended dual antiplatelet agents for 21 days and he was also started on aspirin 81 mg daily. After 21 days clopidogrel can be discontinued. Transthoracic echocardiogram showed mild concentric left ventricular hypertrophy with an estimated ejection fraction of 60%. Diastology was normal for age. There were no wall motion abnormalities. The right ventricle was normal in size with normal systolic function. There was no atrial enlargement and the bubble contrast study was negative for right to left intra-atrial shunt. The right ventricular systolic pressure was estimated to be 27 which is normal. It was no significant valvular heart disease. Significant lab at admission to the hospital was a decreased hemoglobin at 12 with an MCV of 94.9 and a mildly elevated RDW. Platelets were within normal limits. PT and PTT were normal. The electrolytes were unremarkable but the BUN was elevated at 36 with a crea tinine of 1.43, up from 1.2 on 08/01/2022. Hemoglobin A1c was 5.8. Triglycerides were mildly increased at 217 and the LDL was 66 with an HDL of 34 which is low. While in the hospital he was seen and evaluated by PT/OT/ST and a recommendation for acute rehab at discharge from the hospital was made. He was transferred to the acute inpatient rehab unit at [facility] on 04/16/2023 for 3 hours of therapy daily to restore function/independence at or near his prior level. He has seen a neurologist 3 times. He went there initially because he has had some memory difficulties and thought he might have Alzheimer's. The neurologist did not think so. He does have some appearance of masked facies with mild bradykinesia but, no tremors and no rigidity. The neurologist has a suspicion he may be developing PD but, wants to continue monitoring him at this time and hold off on medication. He uses a FWW at home and he lives in a 1 story house. He has a walk in shower with a grab bar attached to the wall. He does not check his BS's at home. His 's name is Diana and he has 4 children, 2 of which live locally. All lab drawn this morning was personally reviewed. The white blood cell count is normal. The hemoglobin is 12.7 which is up from 12 on 04/10/2023. The EMR shows the hemoglobin has ranged from 11.8-12.7 since June of this year. He was not aware that he is anemic. He takes a nonsteroidal anti-inflammatory drug daily for osteoarthritis. He had a colonoscopy a few years ago and per his there were no abnormalities. Sodium is 140 and the potassium is 4.0. The BUN is 46, up from 36 on 04/10/2023. His creatinine is currently 1.27 which is down from 1.43 on 04/10/2023. The GFR is 58 today which is consistent with stage IIIa chronic renal failure. It has ranged from 51-63 over the past 9 months. Phosphorus and magnesium are within normal limits and the LFTs are normal. [facility] Medical History Chronic renal failure, stage 3a Cognitive dysfunction Diabetes mellitus type 2 in obese GERD (gastroesophageal reflux disease) HTN (hypertension) Hyperlipidemia Left ventricular hypertrophy Morbid obesity Neuropathy Normochromic normocytic anemia Osteoarthritis Sleep apnea Tobacco dependence in remission Home Medications gabapentin 100 mg capsule 100 mg PO TID NERVE PAIN 09/14/17 [History Last Taken 04/10/23] gabapentin 400 mg capsule 800 mg PO TID NERVE PAIN 09/14/17 [History Last Taken 04/10/23] losartan 50 mg tablet 50 mg PO DAILY BLOOD PRESSURE 09/14/17 [History Last Taken 04/10/23] metformin 1,000 mg tablet 1,000 mg PO BID DIABETES 09/14/17 [History Last Taken 04/10/23] simvastatin 10 mg tablet 10 mg PO QHS CHOLESTEROL 09/14/17 [History Last Taken 04/09/23] cyanocobalamin (vitamin B-12) 1,000 mcg tablet 1,000 mcg PO DAILY SUPPLEMENT 07/21/18 [History Last Taken 04/10/23] walker #1 ea 07/21/18 [Rx Last Taken Unknown] ascorbic acid (vitamin C) 1,000 mg tablet 1 g PO DAILY SUPPLEMENT 04/10/23 [History Last Taken 04/10/23] aspirin 81 mg chewable tablet 81 mg PO DAILY HEART HEALTH 04/10/23 [History Last Taken 04/10/23] omeprazole 40 mg capsule,delayed release 40 mg PO DAILY ACID REFLUX 04/10/23 [History Last Taken 04/10/23] oxybutynin chloride 10 mg tablet,extended release 24 hr 10 mg PO DAILY OVERACTIVE BLADDER 04/10/23 [History Last Taken 04/10/23] acetaminophen 325 mg tablet 650 mg (2 x 325 mg) PO Q6H PRN PRN Pain 1-10 Or Fever>100.7 #0 tabs 04/16/23 [Rx Last Taken Unknown] clopidogrel 75 mg tablet 75 mg PO DAILY anticoag #0 tabs 04/16/23 [Rx Last Kahlil en 04/16/23] Allergy/AdvReac Type Severity Reaction Status Date / Time lisinopril Allergy Shortness Verified 04/10/23 13:10 of breath Penicillins [PCN] Allergy Unknown Verified 04/10/23 13:10 Family History unable to obtain Social History (Updated 04/17/23 @ 17:[address] 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 Constitutional Constitutional: Reports weakness; Denies anorexia, change in weight, chills, fatigue, fever(s) or night sweats Eyes Eyes: Denies blurry vision, change in vision, eye pain or loss of vision ENT HEENT: Reports abnormal hearing, hearing loss and other Details: Has bilateral hearing aids ; Denies dysphagia, headache(s), nasal congestion or sore throat Cardiovascular Cardiovascular: Denies chest pain, dyspnea on exertion, edema, lightheadedness, orthopnea, palpitations, paroxysmal nocturnal dyspnea or syncope Respiratory/Chest Respiratory/Chest: Denies cough, dyspnea, shortness of breath at rest, shortness of breath with exertion or wheezing Gastrointestinal Gastrointestinal: Denies abdominal pain, constipation, diarrhea, dyspepsia, hematemesis, hematochezia, nausea or vomiting Genitourinary Genitourinary: Reports nocturia and urinary incontinence; Denies dysuria, hematuria, urinary frequency, urinary hesitancy or urinary urgency Musculoskeletal Musculoskeletal: Reports joint pain and stiffness; Denies back pain, joint swelling or neck pain Integumentary Integumentary: Denies jaundice, pruritus, rash or wounds Neurologic Neurologic: Reports confusion, focal weakness and weakness; Denies disequilibrium, dizziness, headache(s), paresthesias, seizures or tremor(s) Psychiatric Psychiatric: Reports depression; Denies anxiety, homicidal ideation or suicidal ideation Endocrine Endocrinology: Denies change in body appearance, polydipsia or polyuria Hematologic/Lymphatic Hematologic/Lymphatic: Denies easy bleeding, easy bruising or lymphadenopathy Allergic/Immunologic Allergic/Immunologic: Denies rhinitis, eczemia or asthma Vital Signs Vital Signs Vital Signs: 04/16/23 14:45 04/16/23 15:39 Temperature 98 F Temperature Source Temporal Pulse Rate 90 Respiratory Rate 17 Respiratory Effort Normal Non-Labored Respiratory Depth Normal Respiratory Pattern Normal Blood Pressure 125/73 H Blood Pressure Mean 90 Blood Pressure Source Monitor Blood Pressure Position Sitting Blood Pressure Location Right Arm Oxygen Delivery Method Room Air Room Air Weight Weight: 224 lb 13.944 oz Body Mass Index (BMI) 35.2 Indicators for Scoring Admitted with or Primary Diagnosis of CVA/Stroke: Yes Hx of CVA/Stroke: Yes Modified Rogerio Score MRS Score at time of Evaluation: 4-Moderate/severe disability NIHSS NIHSS 1a. Level of Consciousness: Alert; keenly responsive 1b. LOC Questions: Answers BOTH questions correctly. 1c. LOC Commands: Performs both tasks correctly. 2. Best Gaze: Normal 3. Visual: No visual loss 4. Facial Palsy: Minor paralysis (flattened nasolabial fold, asymmetry on smiling) (Cannot see as many teeth on the left side when he smiles.) 5a. Left Arm: No drift; arm holds 90 (or 45) degrees for full 10 seconds 5b. Right Arm: No drift; arm holds 90 (or 45) degrees for full 10 seconds 6a. Left Leg: No drift; leg holds 30-degree position for full 5 seconds 6b. Right Leg: No drift; leg holds 30-degree position for full 5 seconds 7. Limb Ataxia: Absent 8. Sensory: Normal; no sensory loss 9. Best Language: No aphasia; normal 10. Dysarthria: Normal 11. Extinction and Inattention: No abnormality Total: 1 Stroke Questions Stroke Team Activated: No Physical Exam Const alert, oriented x3 and no apparent distress Constitutional Narrative: He is sitting in the recliner at the bedside. Memory is impaired and he looks to his when he cannot remember something. General Appearance: cooperative HEENT normocephalic and head/scalp atraumatic HEENT Narrative: Bilateral hearing aids present Mouth: dry mucous membranes Eyes EOMs intact bilaterally Neck No nuchal rigidity and no carotid bruits General: trachea midline Resp normal respiratory effort, normal air movement and clear to auscultation bilaterally Resp Narrative: Diminished throughout, especially in the bases bilaterally. He has a few coarse crackles in the bases. No conversational dyspnea and he is able to speak in complete sentences. Effort and Inspection: Negative for tachypneic or respiratory distress Auscultation: diminished lung sounds Cardio regular rate, regular rhythm, no murmurs, no rub and no gallops Cardio Narrative: No ectopy. Heart sounds are distant, more likely than not secondary to body habitus/possible COPD. He has gynecomastia bilaterally. GI normal to inspection, nondistended, normoactive bowel sounds, soft to palpation and non-tender GI Narrative: There is increased tympany with percussion however he denies any abdominal cramping or pain. No guarding with palpation Extremity no calf tenderness Extremity Narrative: MARGOT hose are in place. There is mild pitting edema both ankles but no pretibial edema. General Extremity: Negative for cyanosis Skin no wounds, no jaundice and no mottling General Skin Exam: no breakdown Rashes: no rashes Neuro Neuro Narrative: See NIHSS scoring. Slight left facial droop. Intact sensation. No ataxia. No extinction. Even though he has no drift with the left upper extremity and left lower extremity the left side is weaker than the right. Having some trouble with word finding and memory. Coordination / Balance: [id number] test normal and [id number] test normal Speech: speech normal Psych cooperative Psych Narrative: He started talking about his mother who 3 years ago and the fact that she was on hospice when she passed. He became quite tearful. We discussed the symptoms of depression with him and his Diana and Don did admit that he thinks he is depressed. Appearance: appropriate Attitude: No agitated Mood & Affect: depressed Thought Content: No suicidality and No homicidality Results Lab / Micro Data 04/17/23 06:51 04/17/23 06:51 Labs: Laboratory Results - last 24 hr 04/16/23 16:38: POC Glucose 151 H Assessment & Plan Assessment/Plan (1) Debility: (2) Ischemic cerebrovascular accident (CVA): (3) Cognitive dysfunction: (4) Acute left-sided muscle weakness: (5) Chronic renal failure, stage 3a: (6) Normochromic normocytic anemia: PLAN: With an increased RDW - etiology unknown. He takes a NSAID daily and Hemoccult stool has been ordered to rule out upper GI bleed/chronic blood loss. (7) Left ventricular hypertrophy: PLAN: Mild (8) Morbid obesity: (9) Sleep apnea: QUALIFIERS: Sleep apnea type: obstructive Qualified Code(s): G47.33 - Obstructive sleep apnea (adult) (pediatric) PLAN: Compliant with CPAP. (10) Hyperlipidemia: QUALIFIERS: Hyperlipidemia type: mixed hyperlipidemia Qualified Code(s): E78.2 - Mixed hyperlipidemia (11) GERD (gastroesophageal reflux disease): QUALIFIERS: Esophagitis presence: without esophagitis Qualified Code(s): K21.9 - Gastro-esophageal reflux disease without esophagitis (12) Depression: QUALIFIERS: Depression Type: reactive depression Qualified Code(s): F32.9 - Major depressive disorder, single episode, unspecified (13) Diabetes mellitus type 2 in obese: (14) Neuropathy: (15) Hypertension: QUALIFIERS: Hypertension type: primary hypertension Qualified Code(s): I10 - Essential (primary) hypertension (16) Low HDL (under 40): PLAN: Plan PLAN PT for gait stability OT for ADL's ST for evaluation Analgesics as needed Bowel protocol Fall precautions Assess for Anxiety/Depression -start sertraline 25 mg every morning and if he tolerates this without adverse side effects will increase to 50 mg of 1 week. GI prophylaxis with pantoprazole DVT prophylaxis with enoxaparin Follow up with Dr. Rodas, neurology following DC from IP Rehab AM lab including CMP, CBC, Mag and Phos-personally reviewed Check a TSH, B12 to R/O treatable causes of memory loss. The depression likely contributes to memory loss and so does the recent stroke. Hemoccult stool Decrease metformin to 1000 mg in the a.m. and 500 with supper. It is 77-year-old man I do not want to see his hemoglobin A1c less than 6. In light of the recent stroke will recommended a HGBA1C of 7 or less but, no lower than 6. Consider Niacin at HS to increase the HDL Recommend regular exercise to help increase the HDL. If he is developing PD regular exercise will help maintain function. Need to establish a diagnosis for the anemia since it is chronic since June. Charges/Coding Visit Charges Inpatient E&M: 22909 Init Hosp L3
[2023-04-16 22:00] VITALS: BP 138/72; PULSE 76; RESP 17; TEMP 36.3; O2SAT 96
[2023-04-16] MEDS: Gabapentin 100 MG Capsule PO (22:14)
[2023-04-16] MEDS: Atorvastatin Calcium 10 MG Tablet 5 MG PO (22:14)
[2023-04-16] MEDS: Gabapentin 400 MG Capsule 800 MG PO (22:14)
[2023-04-16] MEDS: Senna/Docusate Sodium 1 Tablet 2 TABLET PO (22:15)
[2023-04-16 23:18] LABS: Bedside Glucose 152 mg/dL (74-106)
[2023-04-17 01:53] VITALS: BMI 35.2
[2023-04-17 06:00] VITALS: BMI 35.0
[2023-04-17] MEDS: Gabapentin 400 MG Capsule 800 MG PO ×3 (06:45→21:40)
[2023-04-17] MEDS: Enoxaparin 40 MG/0.4 ML Syringe SC (06:45)
[2023-04-17] MEDS: Gabapentin 100 MG Capsule PO ×3 (06:45→21:39)
[2023-04-17] MEDS: Menthol/Lanolin/Calamine/Znox 113 GM Tube 1 APPLIC TOPICAL ×2 (06:46→21:42)
[2023-04-17 06:59] VITALS: O2SAT 96
[2023-04-17 07:37] LABS: Absolute Neutrophil Count 7.2 X10^3/uL (2.0-7.7); Basophil# 0.08 X10^3/uL; Basophil% 0.8 % (0-1); Eosinophil# 0.69 X10^3/uL; Eosinophils% 6.5 % (0-5); Hematocrit 41.2 % (40-54); Hemoglobin 12.7 g/dL (13.0-16.5); Mean Corp Hgb Conc 30.8 g/dL (32-36); Mean Corpuscular Hgb 29.3 pg (27.0-32.0); Mean Corpuscular Volume 95.2 fL (80-94); Mean Platelet Vol. 10.7 fl (6.2-12.0); Monocyte# 0.79 X10^3/uL; Monocyte% 7.5 % (0-10); NRBC Flagged by Analyzer 0 % (0-5); Neutrophil # 7.15 X10^3/uL (2.7-7.7); Neutrophil % 67.4 % (47-70); Platelet Count 291 K/mm3 (150-450); RBC Distribution Width CV 14.6 % (11.6-14.6); RBC Distribution Width SD 51.3 fl (35.1-43.9); Red Blood Count 4.33 M/mm3 (4.6-6.2); White Blood Count 10.6 K/mm3 (4.4-11.0)
[2023-04-17 07:41] VITALS: BP 133/79; PULSE 73; RESP 16; TEMP 36.5; O2SAT 94
[2023-04-17 07:41] LABS: Bedside Glucose 120 mg/dL (74-106)
[2023-04-17] MEDS: Senna/Docusate Sodium 1 Tablet 2 TABLET PO ×2 (07:52→21:39)
[2023-04-17] MEDS: Clopidogrel Bisulfate 75 MG Tablet PO (07:53)
[2023-04-17] MEDS: Cyanocobalamin 500 MCG Tablet 1000 MCG PO (07:53)
[2023-04-17] MEDS: Pantoprazole Sodium 40 MG Tablet PO (07:53)
[2023-04-17] MEDS: Ascorbic Acid 500 MG Tablet 1000 MG PO (07:53)
[2023-04-17] MEDS: Tolterodine Tartrate 2 MG CAP.SA PO (07:53)
[2023-04-17] MEDS: metFORMIN HCl 1,000 MG Tablet 1000 MG PO ×2 (07:53→16:01)
[2023-04-17] MEDS: Losartan Potassium 50 MG Tablet PO (07:53)
[2023-04-17] MEDS: Aspirin 81 MG TAB.CHEW PO (07:53)
[2023-04-17 08:13] LABS: AST(SGOT) 20 U/L (15-37); Alanine Aminotransfer ALT/SGPT 50 U/L (16-61); Albumin, Serum 3.5 g/dL (3.2-5.0); Alkaline Phosphatase 62 U/L (45-117); Anion Gap 7 (5-15); BUN 46 mg/dL (7-18); BUN/Creat Ratio 36.2 RATIO (10-20); Calcium,Total 9.4 mg/dL (8.5-10.1); Chloride 108 mmol/L (98-107); Creatinine, Serum 1.27 mg/dL (0.70-1.30); EST Glomerular Filtration Rate 58 mL/min (>60); Est Glom Filt Rate - Afr Amer 71 mL/min (>60); Estimated Creatinine Clearance 45.54 ml/min; Globulin 3.6 g/dL (2.2-4.2); Glucose 139 mg/dL (74-106); Phosphorus 2.6 mg/dL (2.5-4.9); Protein, Total 7.1 g/dL (6.4-8.2); Sodium Level 140 mmol/L (136-145)
[2023-04-17 11:53] LABS: Bedside Glucose 148 mg/dL (74-106)
[2023-04-17 15:33] VITALS: BMI 35.0
[2023-04-17 16:28] LABS: Bedside Glucose 102 mg/dL (74-106)
--- NOTE | 2023-04-17 18:13 | REHABEVAL_ITS ---
Admission Information Primary Diagnosis:: Post stroke debility Status Changes from Prescreening?: Medical (Depression identified and normochromic normocytic anemia being evaluated.) Actual Problem List:: Cognitve Impr/Memory Loss, Depression, Bladder Incontinence, Bowel, Constipation, Mobility Impaired, Self Care Deficit, Know.Dfct of Medicaitons, BP, Hypertension, Fluid Change-Dehydration and Alteration-Leisure Activ. Potential Problem List:: DVT, Bleeding, Infection, UTI, Aspiration, Falls, Skin Integrity and Depression Risk of Complications DVT: LMWH and MARGOT Hose Bleeding: Monitor Lab Values, Nursing to Teach Precautions for anti-coagulation therapy., Wound, if applicable, to be assessed every shift. and Stroke patients assessed for lethargy or change in status. Infection: Clinical Staff to Monitor for S/S of infection: and S/S of infection include fever, redness, warmth, etc. Urinary Tract Infection: Monitor for frequency, burning, discomfort, or incontinence. and Nursing will obtain urine sample for urinalysis and C&S when ordered. Aspiration: Clinical staff will monitor for coughing, drooling, congestion., Spe ech will evaluate swallowing and dsyphasia. and Nursing will monitor patient swallowing during meals. Falls: Patient will be evaluated for Fall Precautions and Patient will be placed on Fall Precautions as indicated per protocol. Skin Breakdown: Nursing will assess skin daily using assessment tool. and Nursing will place on Skin Breakdown Precautions as indicated. Pain: Clinical staff will assess patient's pain level per protocol., Medications will be given, if needed, and the pain level reassessed. and Other methods: Mass age, distraction, decrease stimulus, etc. used PRN. Plan of Care Patient requires physician specializing in physical medicine and rehab oversight to provide close medical supervision of rehab issues including: Pain Management, Sleep Problems, Bowel and Bladder, Medical and co-morbidity Management, DVT prophylaxis, Rehabilitation Leadership and Coordination of treatment team Patient needs Physical Therapy: For a minimum of 1 hour and At least 5 out of 7 days Patient needs Physical Therapy to improve:: Mobility, Strengthening, Transfers, Stretching, ROM, Endurance, Stairs, Gait and Balance Patient needs Occupational Therapy: For a minimum of 1 hour and At least 5 out of 7 days Patient needs Occupational Therapy to improve ADL's incl.: Eating, Grooming, Bathing, Dressing, Toileting, Toilet transfers, Community Reintegration, Higher functioning activities, Household tasks, Adaptive Equipment, Splinting and Other activities as determined Patient requires speech therapy: For a minimum of 1 hour and At least 5 out of 7 days Patient requires speech therapy for: Swallowing, Cognition, Language Skills and Compensatory Strategies Patient requires 24/7 Rehabilitation Nursing for: Pain Issues, Identifying and preventing risk factors, Monitoring and reporting current medical conditions, Assisting with ambulation, transfer, and all ADL's, Teaching patients about disease process and medications, Family teaching, Providing safe environment, Bowel and Bladder Issues, Skin integrity and Medication Management Patient needs [employer] I Farmworker/ Case Management for: Discharge Planning, Arranging Home Equipment or Services and Family Interventions Patient needs Dietary and Nutrition Services for: Adequate Nutrition, Nutritional Supplements and Nutritional Education Goals Goals Patient will remain: free from falls Patient will perform eating at: MOD I level of assist. Patient will perform bed mobility at: MOD I level of assist. Patient will complete transfers from bed to chair at: MOD I level of assist. Patient will ambulate: - (350 feet with least restrictive device on various surfaces at mod I/supervision - was using a FWW prior to the CVA due to dyse quilibrium related to diabetic peripheral neuropathy) Patient will complete upper body dressing at: MOD I level of assist. Patient will complete lower body dressing at: MOD I level of assist. Patient will complete toilet transfer at: MOD I level of assist. Patient will complete toileting at: MOD I level of assist. Patient will perform bathing at: Standby Assist. Patient will perform Tub/Shower transfer at: Standby Assist. Patient will complete grooming at: MOD I level of assist. Patient will complete home management skills at: Standby Assist. Patient will achieve: - (1 curb step and 3 regular steps +1 step with 1 handrail at standby assist to allow access to his home.) Patient will have pain level of: of 3 or less Patient's skin will: remain intact Patient will receive: adequate nutrition. Discharge Planning Pt Prognosis for Sig. Practical Improv. w/in Reasonable Time: Good Estimated Length of stay (days): 21 Anticipated D/C Destination: Home Was Preadmission Assessment Accurate?: Yes
[2023-04-17 19:20] LABS: Vitamin B12 1984 pg/mL (211-911)
[2023-04-17 19:25] LABS: Thyroid Stim Hormone (TSH) 2.54 uIU/mL (0.358-3.74)
[2023-04-17 20:18] VITALS: BP 119/75; PULSE 76; RESP 16; TEMP 36.6; O2SAT 95
[2023-04-17 21:05] VITALS: BMI 35.0
[2023-04-17] MEDS: Atorvastatin Calcium 10 MG Tablet 5 MG PO (21:40)
[2023-04-17 22:00] VITALS: PULSE 76; RESP 16; O2SAT 95
[2023-04-17 22:18] LABS: Bedside Glucose 128 mg/dL (74-106)
[2023-04-18] MEDS: Gabapentin 400 MG Capsule 800 MG PO ×3 (06:03→21:37)
[2023-04-18] MEDS: Menthol/Lanolin/Calamine/Znox 113 GM Tube 1 APPLIC TOPICAL ×2 (06:03→21:36)
[2023-04-18] MEDS: Enoxaparin 40 MG/0.4 ML Syringe SC (06:03)
[2023-04-18] MEDS: Gabapentin 100 MG Capsule PO ×3 (06:03→21:37)
[2023-04-18 06:23] LABS: Bedside Glucose 117 mg/dL (74-106)
[2023-04-18] MEDS: 0.9% Saline Lock 10 ML Syringe IV (06:28)
[2023-04-18] MEDS: Cyanocobalamin 500 MCG Tablet 1000 MCG PO (08:17)
[2023-04-18] MEDS: Losartan Potassium 50 MG Tablet PO (08:17)
[2023-04-18] MEDS: Ascorbic Acid 500 MG Tablet 1000 MG PO (08:17)
[2023-04-18] MEDS: Senna/Docusate Sodium 1 Tablet 2 TABLET PO ×2 (08:18→21:35)
[2023-04-18] MEDS: Pantoprazole Sodium 40 MG Tablet PO (08:18)
[2023-04-18] MEDS: Tolterodine Tartrate 2 MG CAP.SA PO (08:18)
[2023-04-18] MEDS: Sertraline 50 MG Tablet 25 MG PO (08:18)
[2023-04-18] MEDS: Aspirin 81 MG TAB.CHEW PO (08:18)
[2023-04-18] MEDS: metFORMIN HCl 1,000 MG Tablet 1000 MG PO (08:18)
[2023-04-18] MEDS: Clopidogrel Bisulfate 75 MG Tablet PO (08:18)
[2023-04-18 08:54] VITALS: BP 139/70; PULSE 77; RESP 14; TEMP 36.6; O2SAT 94
--- NOTE | 2023-04-18 11:22 | PCM.PROGNOTE ---
Subjective Subjective Blake was seen on team rounds today. His Diana was present in the room. Afebrile VSS-systolic blood pressure is mildly elevated in the 130s but the diastolic is within normal limit. Maintaining appropriate oxygen saturation on RA Oral intake is good for food but not as good for fluids. His tells me that he does not like to drink fluids and has minimal intake at home as well. Blood sugars are well-controlled with no hypoglycemia. Discussed with nursing - no problems that need addressed. He slept well last night. Reviewed the PT/OT/ST notes Medication list reviewed. Petros denies cephalgia, neck pain, dizziness, vertigo, chest pain, shortness of breath, nausea/vomiting/abdominal pain, diarrhea/constipation, dysuria and calf tenderness. Blake Diana and I discussed that Gabapentin can accumulate in patients with renal failure and in the elderly and lead to confusion, dizziness, falls and disequilibrium. Blake and Diana are both in board with decreasing the dose as tolerated to not more than 1600 mg daily in divided doses which is the max recommended dose for a pt with this creat clear. Objective Data Objective Data Vital Signs: Vital Signs Temp Pulse Resp BP Pulse Ox O2 Del Method 97.8 F 77 14 139/70 H 94 Room Air 04/18/23 08:54 04/18/23 08:54 04/18/23 08:54 04/18/23 08:54 04/18/23 08:54 04/18/23 08:54 Oxygen Delivery Method Room Air Weight: 223 lb 12.307 oz Body Mass Index (BMI) 35.0 Intake & Output: Intake and Output for Last 24 Hours 04/16/23 04/17/23 04/18/23 23:59 23:59 23:59 Intake Total 240 / 240 1020 / 1270 610 / 610 Output Total 400 / 400 200 / 200 200 / 200 Balance -160 / -160 820 / 1070 410 / 410 Lab / Micro Data 04/29/23 05:29 04/28/23 07:52 Labs: Laboratory Results - last 24 hr 04/17/23 06:51: Vitamin B12 1984 H, TSH 2.54 04/17/23 11:34: POC Glucose 148 H 04/17/23 15:59: POC Glucose 102 04/17/23 21:37: POC Glucose 128 H 04/18/23 06:00: POC Glucose 117 H Micro: Microbiology 04/18/23 08:54 Stool Stool Occult Blood (LUIS) - Final Physical Exam Const alert Constitutional Narrative: Confused at times but, able to carry on a conversation. Orientation / Consciousness: confused HEENT Mouth: dry mucous membranes Resp clear to auscultation bilaterally Auscultation: diminished lung sounds Cardio regular rate, regular rhythm and no gallops GI normal to inspection, nondistended, normoactive bowel sounds, soft to palpation and non-tender Extremity no calf tenderness Extremity Narrative: mild edema of the distal LE's/ankles but, much better since he has been wearing the MARGOT hose. Feet are always cool to the touch but he denies any symptoms of claudication. Skin General Skin Exam: no breakdown Assessment & Plan Assessment/Plan (1) Debility: (2) Ischemic cerebrovascular accident (CVA): PLAN: small stroke in the R parietal lobe. Found on MRI (3) Cognitive dysfunction: PLAN: this predates the stroke. He also has urinary incontinent. (4) Acute left-sided muscle weakness: (5) Chronic renal failure, stage 3a: (6) Normochromic normocytic anemia: (7) Left ventricular hypertrophy: PLAN: Mild (8) Morbid obesity: (9) Sleep apnea: QUALIFIERS: Sleep apnea type: obstructive Qualified Code(s): G47.33 - Obstructive sleep apnea (adult) (pediatric) PLAN: Compliant with CPAP. Obstructive (10) Hyperlipidemia: QUALIFIERS: Hyperlipidemia type: mixed hyperlipidemia Qualified Code(s): E78.2 - Mixed hyperlipidemia (11) GERD (gastroesophageal reflux disease): QUALIFIERS: Esophagitis presence: without esophagitis Qualified Code(s): K21.9 - Gastro-esophageal reflux disease without esophagitis (12) Depression: QUALIFIERS: Depression Type: reactive depression Qualified Code(s): F32.9 - Major depressive disorder, single episode, unspecified (13) Diabetes mellitus type 2 in obese: (14) Neuropathy: (15) Hypertension: QUALIFIERS: Hypertension type: primary hypertension Qualified Code(s): I10 - Essential (primary) hypertension (16) Low HDL (under 40): (17) Urinary incontinence: (18) Osteoarthritis: PLAN: Plan 1. Continue therapy 2. Check a gabapentin level 3. Taper gabapentin dose weekly by 300 mg as tolerated. 4. Discussed holding Detrol because it can contribute to confusion, dizziness, falls in the elderly. 5. B12 and TSH are within normal limits. 6. Will need to follow-up with neurology postdischarge from acute rehab. Charges/Coding Visit Charges Inpatient E&M: 45858 Subs Hosp L2
--- NOTE | 2023-04-18 13:03 | CASEMGMT ---
Social Work IDT met with patient and for Team meeting. Discussed patient's progress in PT/OT/ST/SN. Educated to [facility] insurance with [employer] 04/29 and continued stay is not guaranteed with each review. Pt's goal is to return home with . Offered therapy training with to ensure she can provide care at home. agreed. Will ReTeam next week. SW will continue to follow for DC planning. Peggy Samuel, SET MAKING MACHINE OPERATOR CASH SURRENDER CALCULATOR
[2023-04-18 15:00] VITALS: BMI 35.0
[2023-04-18 16:40] LABS: Bedside Glucose 99 mg/dL (74-106)
[2023-04-18] MEDS: metFORMIN HCl 500 MG Tablet PO (17:00)
[2023-04-18 19:49] VITALS: BP 155/76; PULSE 92; RESP 18; TEMP 36.6; O2SAT 93
[2023-04-18] MEDS: Atorvastatin Calcium 10 MG Tablet 5 MG PO (21:35)
[2023-04-18 21:43] VITALS: BMI 35.0
[2023-04-18 22:00] VITALS: PULSE 82; RESP 18; O2SAT 93
[2023-04-19] MEDS: 0.9% Saline Lock 10 ML Syringe IV ×2 (04:49→14:33)
[2023-04-19] MEDS: Enoxaparin 40 MG/0.4 ML Syringe SC (04:55)
[2023-04-19] MEDS: Gabapentin 100 MG Capsule PO ×3 (04:55→20:31)
[2023-04-19] MEDS: Gabapentin 400 MG Capsule 800 MG PO ×3 (04:55→20:31)
[2023-04-19] MEDS: Menthol/Lanolin/Calamine/Znox 113 GM Tube 1 APPLIC TOPICAL ×2 (04:55→20:31)
[2023-04-19 06:49] LABS: Bedside Glucose 116 mg/dL (74-106)
[2023-04-19] MEDS: Losartan Potassium 50 MG Tablet PO (08:32)
[2023-04-19] MEDS: metFORMIN HCl 1,000 MG Tablet 1000 MG PO (08:32)
[2023-04-19] MEDS: Pantoprazole Sodium 40 MG Tablet PO (08:32)
[2023-04-19] MEDS: Senna/Docusate Sodium 1 Tablet 2 TABLET PO (08:32)
[2023-04-19] MEDS: Tolterodine Tartrate 2 MG CAP.SA PO (08:32)
[2023-04-19] MEDS: Sertraline 50 MG Tablet 25 MG PO (08:32)
[2023-04-19] MEDS: Aspirin 81 MG TAB.CHEW PO (08:32)
[2023-04-19] MEDS: Clopidogrel Bisulfate 75 MG Tablet PO (08:32)
[2023-04-19] MEDS: Ascorbic Acid 500 MG Tablet 1000 MG PO (08:32)
[2023-04-19] MEDS: Cyanocobalamin 500 MCG Tablet 1000 MCG PO (08:33)
[2023-04-19 09:09] VITALS: BP 142/79; PULSE 68; RESP 16; TEMP 37; O2SAT 95
[2023-04-19 09:11] VITALS: BMI 35.0
[2023-04-19 15:37] VITALS: O2SAT 96
[2023-04-19 17:38] LABS: Bedside Glucose 110 mg/dL (74-106)
[2023-04-19] MEDS: Acetaminophen 325 MG Tablet 650 MG PO (18:18)
[2023-04-19 19:29] VITALS: BP 126/74; PULSE 72; RESP 17; TEMP 36.7; O2SAT 96
[2023-04-19] MEDS: Atorvastatin Calcium 10 MG Tablet 5 MG PO (20:29)
[2023-04-20] MEDS: Gabapentin 100 MG Capsule PO ×3 (05:31→20:44)
[2023-04-20] MEDS: Enoxaparin 40 MG/0.4 ML Syringe SC (05:31)
[2023-04-20] MEDS: Gabapentin 400 MG Capsule 800 MG PO ×3 (05:31→20:44)
[2023-04-20] MEDS: Menthol/Lanolin/Calamine/Znox 113 GM Tube 1 APPLIC TOPICAL ×2 (05:33→20:45)
[2023-04-20] MEDS: 0.9% Saline Lock 10 ML Syringe IV (05:36)
[2023-04-20 06:57] LABS: Bedside Glucose 121 mg/dL (74-106)
[2023-04-20 08:30] VITALS: BP 142/74; PULSE 60; RESP 18; TEMP 36.8; O2SAT 95
[2023-04-20] MEDS: Aspirin 81 MG TAB.CHEW PO (09:03)
[2023-04-20] MEDS: metFORMIN HCl 1,000 MG Tablet 1000 MG PO (09:03)
[2023-04-20] MEDS: Cyanocobalamin 500 MCG Tablet 1000 MCG PO (09:04)
[2023-04-20] MEDS: Clopidogrel Bisulfate 75 MG Tablet PO (09:05)
[2023-04-20] MEDS: Ascorbic Acid 500 MG Tablet 1000 MG PO (09:05)
[2023-04-20] MEDS: Losartan Potassium 50 MG Tablet PO (09:05)
[2023-04-20] MEDS: Tolterodine Tartrate 2 MG CAP.SA PO (09:05)
[2023-04-20] MEDS: Pantoprazole Sodium 40 MG Tablet PO (09:05)
[2023-04-20] MEDS: Senna/Docusate Sodium 1 Tablet 2 TABLET PO ×2 (09:06→20:38)
[2023-04-20 12:54] VITALS: BMI 35.0
[2023-04-20 17:07] LABS: Bedside Glucose 126 mg/dL (74-106)
[2023-04-20] MEDS: metFORMIN HCl 500 MG Tablet PO (17:11)
[2023-04-20 20:37] VITALS: BP 118/70; PULSE 72; RESP 16; TEMP 36.8; O2SAT 94
[2023-04-20] MEDS: Atorvastatin Calcium 10 MG Tablet 5 MG PO (20:40)
[2023-04-21 03:04] VITALS: BMI 35.0
[2023-04-21] MEDS: Enoxaparin 40 MG/0.4 ML Syringe SC (05:57)
[2023-04-21] MEDS: Gabapentin 100 MG Capsule PO ×3 (05:59→21:24)
[2023-04-21] MEDS: Gabapentin 400 MG Capsule 800 MG PO ×3 (05:59→21:24)
[2023-04-21] MEDS: Menthol/Lanolin/Calamine/Znox 113 GM Tube 1 APPLIC TOPICAL ×2 (06:00→21:28)
[2023-04-21 07:17] LABS: Bedside Glucose 123 mg/dL (74-106)
[2023-04-21 07:38] VITALS: BP 128/70; PULSE 64; RESP 17; TEMP 36.8; O2SAT 93
[2023-04-21] MEDS: metFORMIN HCl 1,000 MG Tablet 1000 MG PO (08:33)
[2023-04-21] MEDS: Aspirin 81 MG TAB.CHEW PO (08:33)
[2023-04-21] MEDS: Cyanocobalamin 500 MCG Tablet 1000 MCG PO (08:33)
[2023-04-21] MEDS: Losartan Potassium 50 MG Tablet PO (08:34)
[2023-04-21] MEDS: Pantoprazole Sodium 40 MG Tablet PO (08:34)
[2023-04-21] MEDS: Clopidogrel Bisulfate 75 MG Tablet PO (08:34)
[2023-04-21] MEDS: Senna/Docusate Sodium 1 Tablet 2 TABLET PO ×2 (08:34→21:24)
[2023-04-21] MEDS: Ascorbic Acid 500 MG Tablet 1000 MG PO (08:34)
[2023-04-21] MEDS: Tolterodine Tartrate 2 MG CAP.SA PO (08:34)
[2023-04-21 09:31] VITALS: BMI 35.0
[2023-04-21 16:46] LABS: Bedside Glucose 106 mg/dL (74-106)
[2023-04-21] MEDS: metFORMIN HCl 500 MG Tablet PO (17:23)
[2023-04-21 19:43] VITALS: BP 125/74; PULSE 77; RESP 18; TEMP 36.6; O2SAT 96
[2023-04-21] MEDS: Atorvastatin Calcium 10 MG Tablet 5 MG PO (21:25)
[2023-04-22] MEDS: Gabapentin 100 MG Capsule PO ×2 (05:18→13:26)
[2023-04-22] MEDS: Gabapentin 400 MG Capsule 800 MG PO ×3 (05:18→21:30)
[2023-04-22] MEDS: Enoxaparin 40 MG/0.4 ML Syringe SC (05:19)
[2023-04-22] MEDS: Menthol/Lanolin/Calamine/Znox 113 GM Tube 1 APPLIC TOPICAL ×2 (05:23→21:30)
[2023-04-22 07:12] LABS: Bedside Glucose 107 mg/dL (74-106)
[2023-04-22 07:58] VITALS: BP 144/78; PULSE 68; RESP 17; TEMP 37.1
[2023-04-22] MEDS: Tolterodine Tartrate 2 MG CAP.SA PO (08:00)
[2023-04-22] MEDS: Losartan Potassium 50 MG Tablet PO (08:00)
[2023-04-22] MEDS: Cyanocobalamin 500 MCG Tablet 1000 MCG PO (08:01)
[2023-04-22] MEDS: Ascorbic Acid 500 MG Tablet 1000 MG PO (08:01)
[2023-04-22] MEDS: Aspirin 81 MG TAB.CHEW PO (08:01)
[2023-04-22] MEDS: Pantoprazole Sodium 40 MG Tablet PO (08:02)
[2023-04-22] MEDS: metFORMIN HCl 1,000 MG Tablet 1000 MG PO (08:02)
[2023-04-22] MEDS: Senna/Docusate Sodium 1 Tablet 2 TABLET PO ×2 (08:02→21:30)
[2023-04-22] MEDS: Clopidogrel Bisulfate 75 MG Tablet PO (08:02)
[2023-04-22 13:59] VITALS: BMI 35.0
--- NOTE | 2023-04-22 15:08 | PCM.PROGNOTE ---
Subjective Subjective Afebrile VSS-the systolic blood pressure in the a.m. is always mildly elevated Maintaining appropriate oxygen saturation on RA-at rest she is able to maintain Oral intake is good Discussed with nursing - no problems that need addressed Reviewed the PT/OT/ST notes Medication list reviewed. Shara denies any radicular/nerve pain in his legs with the decrease in the gabapentin dose. His stated he tells me that he had a very good day yesterday and his speech machelle is normal now. He is not searching for words like he was last week. He denies chest pain, cough, shortness of breath, sore throat, nausea/vomiting/abdominal pain, cephalgia, calf tenderness and dysuria. He was able to stand for 25 minutes today getting a shower/grooming and did not fatigue. He says his bottom is sore from sitting too much. Objective Data Objective Data Vital Signs: Vital Signs Temp Pulse Resp BP Pulse Ox O2 Del Method 98.7 F 68 17 144/78 H 96 Room Air 04/22/23 07:58 04/22/23 07:58 04/22/23 07:58 04/22/23 07:58 04/21/23 19:43 04/22/23 07:58 Oxygen Delivery Method Room Air Weight: 223 lb 12.307 oz Body Mass Index (BMI) 35.0 Intake & Output: Intake and Output for Last 24 Hours 04/20/23 04/21/23 04/22/23 23:59 23:59 23:59 Intake Total 1200 / 1200 1600 / 1600 840 / 840 Output Total 300 / 300 650 / 650 Balance 900 / 900 1600 / 1600 190 / 190 Lab / Micro Data 04/17/23 06:51 04/17/23 06:51 Labs: Laboratory Results - last 24 hr 04/21/23 16:24: POC Glucose 106 04/22/23 06:50: POC Glucose 107 H Micro: Microbiology 04/18/23 08:54 Stool Stool Occult Blood (LUIS) - Final Physical Exam Const alert, oriented x3 and no apparent distress General Appearance: cooperative HEENT normocephalic and head/scalp atraumatic HEENT Narrative: Bilateral hearing aids present Mouth: dry mucous membranes Resp normal respiratory effort, normal air movement and clear to auscultation bilaterally Effort and Inspection: Negative for tachypneic or respiratory distress Auscultation: diminished lung sounds Cardio regular rate, regular rhythm, no murmurs, no rub and no gallops Cardio Narrative: No ectopy. Heart sounds are distant, more likely than not secondary to body habitus/possible COPD. He has gynecomastia bilaterally. GI normal to inspection, nondistended, normoactive bowel sounds, soft to palpation and non-tender Extremity no calf tenderness Extremity Narrative: MARGOT hose are in place. No pitting edema today. General Extremity: Negative for cyanosis or edema Skin no jaundice Skin Narrative: No rashes Neuro Neuro Narrative: The machelle of his speech is normal and he is very fluent now. His memory seems better per his . TSH and B12 are normal. Speech: speech normal Psych Psych Narrative: He is tolerating the sertraline with no adverse side effects. If he continues to tolerate 25 mg and he still feels depressed at the end of this week we will likely increase to more therapeutic dose of 50 mg daily. Appearance: appropriate Attitude: No agitated Assessment & Plan Assessment/Plan (1) Debility: (2) Ischemic cerebrovascular accident (CVA): (3) Cognitive dysfunction: (4) Acute left-sided muscle weakness: (5) Chronic renal failure, stage 3a: (6) Normochromic normocytic anemia: PLAN: With an increased RDW - etiology unknown. He takes a NSAID daily and Hemoccult stool has been ordered to rule out upper GI bleed/chronic blood loss. Stool is Hemoccult negative. (7) Left ventricular hypertrophy: PLAN: Mild (8) Morbid obesity: (9) Sleep apnea: QUALIFIERS: Sleep apnea type: obstructive Qualified Code(s): G47.33 - Obstructive sleep apnea (adult) (pediatric) PLAN: Compliant with CPAP. (10) Hyperlipidemia: QUALIFIERS: Hyperlipidemia type: mixed hyperlipidemia Qualified Code(s): E78.2 - Mixed hyperlipidemia (11) GERD (gastroesophageal reflux disease): QUALIFIERS: Esophagitis presence: without esophagitis Qualified Code(s): K21.9 - Gastro-esophageal reflux disease without esophagitis (12) Depression: QUALIFIERS: Depression Type: reactive depression Qualified Code(s): F32.9 - Major depressive disorder, single episode, unspecified (13) Diabetes mellitus type 2 in obese: (14) Neuropathy: (15) Hypertension: QUALIFIERS: Hypertension type: primary hypertension Qualified Code(s): I10 - Essential (primary) hypertension (16) Low HDL (under 40): PLAN: Plan 1. Continue therapy 2. Decrease gabapentin to 800 mg 3 times daily and discontinue the additional 100 mg 3 times daily. 3. Blood sugars are under excellent control with no hypoglycemia so will DC the Accu-Cheks and check just as needed for symptoms. 4. Hydrochlorothiazide was discontinued because his oral fluid intake is poor chronically. Blood pressure is still on the low side despite better hydration and discontinuation of hydrochlorothiazide. Will decrease the Cozaar to 25 mg daily. Charges/Coding Visit Charges Inpatient E&M: 21090 Subs Hosp L2
[2023-04-22] MEDS: metFORMIN HCl 500 MG Tablet PO (15:53)
[2023-04-22 19:49] VITALS: BP 123/68; PULSE 78; RESP 15; TEMP 36.8; O2SAT 95
[2023-04-22 19:55] VITALS: BMI 35.0
[2023-04-22 19:56] VITALS: PULSE 78; RESP 15; O2SAT 94
[2023-04-22] MEDS: Atorvastatin Calcium 10 MG Tablet 5 MG PO (21:29)
[2023-04-23] MEDS: Menthol/Lanolin/Calamine/Znox 113 GM Tube 1 APPLIC TOPICAL ×2 (05:00→20:30)
[2023-04-23] MEDS: Enoxaparin 40 MG/0.4 ML Syringe SC (05:01)
[2023-04-23] MEDS: Gabapentin 400 MG Capsule 800 MG PO ×3 (05:01→20:29)
[2023-04-23 06:24] LABS: Anion Gap 6 (5-15); BUN 31 mg/dL (7-18); BUN/Creat Ratio 20.8 RATIO (10-20); Calcium,Total 9.6 mg/dL (8.5-10.1); Chloride 107 mmol/L (98-107); Creatinine, Serum 1.49 mg/dL (0.70-1.30); EST Glomerular Filtration Rate 49 mL/min (>60); Est Glom Filt Rate - Afr Amer 59 mL/min (>60); Estimated Creatinine Clearance 38.82 ml/min; Glucose 133 mg/dL (74-106); Potassium 4.2 mmol/L (3.5-5.1); Sodium Level 140 mmol/L (136-145)
[2023-04-23 07:47] VITALS: BP 150/66; PULSE 71; RESP 15; TEMP 36.4; O2SAT 95
[2023-04-23] MEDS: Aspirin 81 MG TAB.CHEW PO (09:13)
[2023-04-23] MEDS: Losartan Potassium 25 MG Tablet PO (09:14)
[2023-04-23] MEDS: metFORMIN HCl 1,000 MG Tablet 1000 MG PO (09:14)
[2023-04-23] MEDS: Clopidogrel Bisulfate 75 MG Tablet PO (09:14)
[2023-04-23] MEDS: Pantoprazole Sodium 40 MG Tablet PO (09:14)
[2023-04-23] MEDS: Ascorbic Acid 500 MG Tablet 1000 MG PO (09:14)
[2023-04-23] MEDS: Cyanocobalamin 500 MCG Tablet 1000 MCG PO (09:14)
[2023-04-23] MEDS: Tolterodine Tartrate 2 MG CAP.SA PO (09:14)
[2023-04-23 13:53] VITALS: BMI 35.0
[2023-04-23 16:12] LABS: Bacteria 0 SEEN /hpf (None Seen); Mucous, Urine 0 SEEN /hpf (<or=2+); Red Blood Cells-Urine 0 SEEN /hpf (0-5); Squamous Epithelial Cells - UA 0 SEEN /hpf (0-5)
[2023-04-23 16:53] LABS: Color, Urine Yellow (Yellow); Glucose, Dipstick Normal (Normal); Ketone-Dipstick 5 mg/dl (Negative); Leukocyte Esterase-Dipstick 100 /ul (Negative); Nitrite-Dipstick Negative (Negative); Occult Blood-Urine Negative /ul (Negative); Protein-Dipstick 15 mg/dl (Negative); Specific Gravity, Urine 1.025 (1.002-1.030); Urine Bilirubin Dipstick Negative (Negative); Urine Clarity Clear (Clear); Urine Urobilinogen Normal (Normal)
[2023-04-23] MEDS: metFORMIN HCl 500 MG Tablet PO (16:55)
[2023-04-23 17:02] LABS: Calcium Oxalate Crystals Ur 1+ /hpf (<or=2+); White Blood Cells 0-5 SEEN /hpf (0-5)
[2023-04-23 19:28] VITALS: BP 125/68; PULSE 82; RESP 18; TEMP 36.6; O2SAT 95
[2023-04-23] MEDS: Senna/Docusate Sodium 1 Tablet 2 TABLET PO (20:29)
[2023-04-23] MEDS: Atorvastatin Calcium 10 MG Tablet 5 MG PO (20:29)
[2023-04-23 20:42] VITALS: BMI 35.0
[2023-04-23 22:00] VITALS: PULSE 86; RESP 17; O2SAT 95
[2023-04-24] MEDS: Gabapentin 400 MG Capsule 800 MG PO ×3 (05:05→21:30)
[2023-04-24] MEDS: Enoxaparin 40 MG/0.4 ML Syringe SC (05:05)
[2023-04-24] MEDS: Menthol/Lanolin/Calamine/Znox 113 GM Tube 1 APPLIC TOPICAL ×2 (05:06→21:41)
[2023-04-24 06:00] VITALS: BMI 33.9
[2023-04-24 07:28] VITALS: BP 142/76; PULSE 72; RESP 14; TEMP 36.6; O2SAT 95
[2023-04-24] MEDS: Tolterodine Tartrate 2 MG CAP.SA PO (08:00)
[2023-04-24] MEDS: Senna/Docusate Sodium 1 Tablet 2 TABLET PO ×2 (08:00→21:30)
[2023-04-24] MEDS: Losartan Potassium 25 MG Tablet PO (08:00)
[2023-04-24] MEDS: Pantoprazole Sodium 40 MG Tablet PO (08:00)
[2023-04-24] MEDS: Ascorbic Acid 500 MG Tablet 1000 MG PO (08:01)
[2023-04-24] MEDS: Clopidogrel Bisulfate 75 MG Tablet PO (08:01)
[2023-04-24] MEDS: Aspirin 81 MG TAB.CHEW PO (08:01)
[2023-04-24] MEDS: Cyanocobalamin 500 MCG Tablet 1000 MCG PO (08:01)
[2023-04-24] MEDS: metFORMIN HCl 1,000 MG Tablet 1000 MG PO (08:01)
[2023-04-24] MEDS: metFORMIN HCl 500 MG Tablet PO (16:29)
[2023-04-24 16:30] VITALS: BMI 33.9
[2023-04-24] MEDS: Atorvastatin Calcium 10 MG Tablet 5 MG PO (21:30)
[2023-04-24 22:00] VITALS: BP 106/67; PULSE 78; RESP 17; TEMP 36.6; O2SAT 94
[2023-04-25] MEDS: Enoxaparin 40 MG/0.4 ML Syringe SC (05:18)
[2023-04-25] MEDS: Menthol/Lanolin/Calamine/Znox 113 GM Tube 1 APPLIC TOPICAL ×2 (05:19→22:18)
[2023-04-25] MEDS: Gabapentin 400 MG Capsule 800 MG PO ×3 (05:19→22:13)
[2023-04-25 07:42] VITALS: BP 119/69; PULSE 70; RESP 16; TEMP 36.6; O2SAT 93
[2023-04-25] MEDS: Aspirin 81 MG TAB.CHEW PO (08:22)
[2023-04-25] MEDS: metFORMIN HCl 1,000 MG Tablet 1000 MG PO (08:23)
[2023-04-25] MEDS: Losartan Potassium 25 MG Tablet PO (08:23)
[2023-04-25] MEDS: Cyanocobalamin 500 MCG Tablet 1000 MCG PO (08:23)
[2023-04-25] MEDS: Ascorbic Acid 500 MG Tablet 1000 MG PO (08:23)
[2023-04-25] MEDS: Tolterodine Tartrate 2 MG CAP.SA PO (08:24)
[2023-04-25] MEDS: Pantoprazole Sodium 40 MG Tablet PO (08:24)
[2023-04-25] MEDS: Clopidogrel Bisulfate 75 MG Tablet PO (08:24)
[2023-04-25 10:00] VITALS: PULSE 76; RESP 16; O2SAT 96
[2023-04-25 13:03] VITALS: BMI 33.9
--- NOTE | 2023-04-25 13:05 | CASEMGMT ---
Social Work IDT met with patient and for Team meeting. Discussed patient's progress in PT/OT/ST/SN. Educated to [facility] insurance with [employer] 04/30 and continued stay is not guaranteed with each review. IDT recommending 24/ care and not to be left alone for physical and cognitive safety. Offered therapy training to determine if she can care for pt. SW also educated to nonskilled [facility], [place], medical alert or [place] or SNF. stated she would like to take pt home and agreed to therapy training. Scheduled for 04/26 at 0900. denied [facility] list, but SW provided [facility] list, adult day services, and medical alert resources. SW will continue to follow and coordinate skilled HHC and/or DME needs at [place]. URIEL Caballero
[2023-04-25] MEDS: metFORMIN HCl 500 MG Tablet PO (16:54)
--- NOTE | 2023-04-25 17:29 | PN_ITS ---
Subjective Subjective Blake was seen on team rounds today. His was present in the room. Afebrile VSS systolic blood pressure is not infrequently over 130 and the diastolics are always within goal which is less than 80. Would like to see the systolics consistently less than 130?77-year-old male with a recent stroke. Maintaining appropriate oxygen saturation on RA Oral intake is good for food and only fair for fluids. Discussed with nursing -remains incontinent of urine. PVR's are not over 100. Reviewed the PT/OT/ST notes - OT tells me that his feet are very dry and cracked and they bleed at times when putting socks and shoes on. Medication list reviewed. Blake tells me today that he sometimes has hallucinations. He also tells me that his father's identical twin had dementia. He tells me that he sees his mother sitting in his room at times. No auditory hallucinations. Blake denies lightheadedness, vertigo, CP, SOB at rest, SOB with exertion, cough, nausea, vomiting, abd pain, diarrhea, constipation, dysuria, calf pain and ankle swelling. Shara denies recurrence of neuropathic pain in his distal lower extrem ities with the decrease in the gabapentin from 1 g 3 times daily to 800 mg 3 times daily. Will continue to taper weekly as tolerated. He heard some tough things while on TEAM rounds today. therapy is recommending 12/11 supervision and that his or someone else set up his medications for him. Urine culture had less than 1000 colonies of a gram-negative trupti. Objective Data Objective Data Vital Signs: Vital Signs Temp Pulse Resp BP Pulse Ox O2 Del Method 97.8 F 76 16 119/69 96 Room Air 04/25/23 07:42 04/25/23 10:00 04/25/23 10:00 04/25/23 07:42 04/25/23 10:00 04/25/23 10:00 Oxygen Delivery Method Room Air Weight: 216 lb 7.903 oz Body Mass Index (BMI) 33.9 Intake & Output: Intake and Output for Last 24 Hours 04/23/23 04/24/23 04/25/23 23:59 23:59 23:59 Intake Total 1160 / 1220 1020 / 1020 720 / 720 Output Total 500 / 650 875 / 875 200 / 200 Balance 660 / 570 145 / 145 520 / 520 Lab / Micro Data 04/17/23 06:51 04/23/23 05:30 Micro: Microbiology 04/23/23 16:00 Urine, Clean Catch Urine Culture - Final Gram negative trupti 04/18/23 08:54 Stool Stool Occult Blood (LUIS) - Final Physical Exam Const alert and no apparent distress General Appearance: cooperative HEENT normocephalic and head/scalp atraumatic HEENT Narrative: Bilateral hearing aids present Mouth: dry mucous membranes Resp normal respiratory effort, normal air movement and clear to auscultation bilaterally Effort and Inspection: Negative for tachypneic or respiratory distress Auscultation: diminished lung sounds Cardio regular rate, regular rhythm, no murmurs, no rub and no gallops Cardio Narrative: No ectopy. Heart sounds are distant, more likely than not secondary to body habitus/possible COPD. He has gynecomastia bilaterally. GI normal to inspection, nondistended, normoactive bowel sounds, soft to palpation and non-tender Extremity no calf tenderness Extremity Narrative: MARGOT hose are in place. No pitting edema today. General Extremity: Negative for cyanosis or edema Skin Skin Narrative: No rashes Neuro Neuro Narrative: When the BUN/CREAT ratio goes up and he is dehydrated his mentation declines and his speech is less fluid. He searches for words more often and looks to his for answers. Speech: speech normal Psych Appearance: appropriate Attitude: No agitated Mood & Affect: depressed Assessment & Plan Assessment/Plan (1) Debility: (2) Ischemic cerebrovascular accident (CVA): PLAN: small stroke in the R parietal lobe. Found on MRI (3) Cognitive dysfunction: PLAN: this predates the stroke. He also has urinary incontinent. (4) Acute left-sided muscle weakness: (5) Chronic renal failure, stage 3a: (6) Normochromic normocytic anemia: (7) Left ventricular hypertrophy: PLAN: Mild (8) Morbid obesity: (9) Sleep apnea: QUALIFIERS: Sleep apnea type: obstructive Qualified Code(s): G47.33 - Obstructive sleep apnea (adult) (pediatric) PLAN: Compliant with CPAP. Obstructive (10) Hyperlipidemia: QUALIFIERS: Hyperlipidemia type: mixed hyperlipidemia Qualified Code(s): E78.2 - Mixed hyperlipidemia (11) GERD (gastroesophageal reflux disease): QUALIFIERS: Esophagitis presence: without esophagitis Qualified Code(s): K21.9 - Gastro-esophageal reflux disease without esophagitis (12) Depression: QUALIFIERS: Depression Type: reactive depression Qualified Code (s): F32.9 - Major depressive disorder, single episode, unspecified (13) Diabetes mellitus type 2 in obese: (14) Neuropathy: (15) Hypertension: QUALIFIERS: Hypertension type: primary hypertension Qualified Co de(s): I10 - Essential (primary) hypertension (16) Low HDL (under 40): (17) Urinary incontinence: PLAN: Plan 1. Continue therapy 2. Would like to speak to his neurologist to discuss the waxing and waning of mental status and performance in therapy. Also the hallucinations. Could he have Lewy body dementia? There is a family history of dementia and his father's identical twin brother. His father in his early 60s and was an alcoholic and his history is not helpful. 3. Increase Cozaar to 50 mg daily to better control the systolic blood pressure with a goal of blood pressure less than 130/80. 4. Creatinine is once again elevated and so is the BUN. His fluid intake is poor and when the BUNs/creatinine goes up cognition decreases. 5. If he continues to have no neuropathic pain in his distal lower extremities will decrease the gabapentin dose to 600 mg 3 times daily on Saturday. 6. Will need 24/7 supervision at discharge. Diana prefers to take him home and has family to help her when she needs to be out of the house so he will not be left alone. 7. Will continue to follow-up with neurology postdischarge. 8. 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 He is on a low-dose of tolterodine and will hold this for the next few days to see what happens. 9. Recheck a CBC and BMP on Saturday. 10. Starting IV of normal saline and run at 75 cc/h x 3 L. Continue to encourage increased fluid intake. 11. Diana will come in for family training tomorrow. Charges/Coding Visit Charges Inpatient E&M: 86385 Subs Hosp L2
[2023-04-25] MEDS: 0.9% Normal Saline (1000mL) 1,000 ML 75 ML IV (18:16)
[2023-04-25] MEDS: 0.9% Saline Lock 10 ML Syringe IV (18:20)
[2023-04-25 22:00] VITALS: BP 120/65; PULSE 77; RESP 16; TEMP 36.7; O2SAT 93
[2023-04-25] MEDS: Atorvastatin Calcium 10 MG Tablet 5 MG PO (22:13)
[2023-04-25 23:28] VITALS: BMI 33.9
[2023-04-26] MEDS: Menthol/Lanolin/Calamine/Znox 113 GM Tube 1 APPLIC TOPICAL ×2 (06:23→22:26)
[2023-04-26] MEDS: Gabapentin 400 MG Capsule 800 MG PO ×3 (06:23→22:25)
[2023-04-26] MEDS: Enoxaparin 40 MG/0.4 ML Syringe SC (06:24)
[2023-04-26 08:08] VITALS: BP 135/66; PULSE 69; RESP 17; TEMP 36.7; O2SAT 94
[2023-04-26] MEDS: 0.9% Normal Saline (1000mL) 1,000 ML 75 ML IV (08:34)
[2023-04-26] MEDS: Cyanocobalamin 500 MCG Tablet 1000 MCG PO (08:35)
[2023-04-26] MEDS: metFORMIN HCl 1,000 MG Tablet 1000 MG PO (08:35)
[2023-04-26] MEDS: Aspirin 81 MG TAB.CHEW PO (08:35)
[2023-04-26] MEDS: Pantoprazole Sodium 40 MG Tablet PO (08:36)
[2023-04-26] MEDS: Ascorbic Acid 500 MG Tablet 1000 MG PO (08:36)
[2023-04-26] MEDS: Clopidogrel Bisulfate 75 MG Tablet PO (08:36)
[2023-04-26] MEDS: Losartan Potassium 50 MG Tablet PO (08:37)
[2023-04-26 13:49] VITALS: BMI 33.9
[2023-04-26] MEDS: metFORMIN HCl 500 MG Tablet PO (18:03)
--- NOTE | 2023-04-26 18:20 | PCM.PROGNOTE ---
Subjective Subjective Afebrile VSS-blood pressure has improved with increasing the Cozaar to 50 mg daily. no hypotension. Heart rate is within limits. Denies lightheadedness. Maintaining appropriate oxygen saturation on RA Oral intake is good. He struggles with fluid intake still. Needs a lot of encouragement from staff to improve fluid intake. Discussed with nursing - no problems that need addressed Reviewed the PT/OT/ST notes Medication list reviewed. Blake seems down today and he is tearful. when I asked him why he told me we said he could not go home. I explained he misunderstood. Diana wants to take him home. He does need 12/11 supervision and Diana will have to manage his pull boxes....she has already been managing the finances. Family will help with supervision when she needs to leave the house OR she can take him with her. Blake denies lightheadedness, cephalgia, vertigo, chest pain, shortness of breath, palpitations, cough, nausea/vomiting/abdominal pain, dysuria and calf tenderness. Objective Data Objective Data Vital Signs: Vital Signs Temp Pulse Resp BP Pulse Ox O2 Del Method 98.0 F 69 17 135/66 H 94 Room Air 04/26/23 08:08 04/26/23 08:08 04/26/23 08:08 04/26/23 08:08 04/26/23 08:08 04/26/23 08:08 Oxygen Delivery Method Room Air Weight: 216 lb 7.903 oz Body Mass Index (BMI) 33.9 Intake & Output: Intake and Output for Last 24 Hours 04/24/23 04/25/23 04/26/23 23:59 23:59 23:59 Intake Total 1020 / 1020 1460 / 1460 1590 / 1590 Output Total 875 / 875 700 / 700 650 / 650 Balance 145 / 145 760 / 760 940 / 940 Lab / Micro Data 04/29/23 05:29 04/28/23 07:52 Micro: Microbiology 04/23/23 16:00 Urine, Clean Catch Urine Culture - Final Gram negative trupti 04/18/23 08:54 Stool Stool Occult Blood (LUIS) - Final Physical Exam Const alert Constitutional Narrative: Here for when talking about going General Appearance: cooperative Orientation / Consciousness: confused Resp clear to auscultation bilaterally Effort and Inspection: Negative for tachypneic Auscultation: diminished lung sounds Cardio regular rate, regular rhythm and no gallops GI normal to inspection, nondistended, normoactive bowel sounds, soft to palpation and non-tender Extremity no calf tenderness Extremity Narrative: Peripheral edema is controlled provide bilateral MARGOT hose there is no pitting at the ankles. Skin General Skin Exam: no breakdown Rashes: no rashes Psych Appearance: appropriate Attitude: No agitated Mood & Affect: depressed Assessment & Plan Assessment/Plan (1) Debility: (2) Ischemic cerebrovascular accident (CVA): PLAN: small stroke in the R parietal lobe. Found on MRI (3) Cognitive dysfunction: PLAN: this predates the stroke. He also has urinary incontinent. (4) Acute left-sided muscle weakness: (5) Chronic renal failure, stage 3a: (6) Normochromic normocytic anemia: (7) Left ventricular hypertrophy: PLAN: Mild (8) Morbid obesity: (9) Sleep apnea: QUALIFIERS: Sleep apnea type: obstructive Qualified Code(s): G47.33 - Obstructive sleep apnea (adult) (pediatric) PLAN: Compliant with CPAP. Obstructive (10) Hyperlipidemia: QUALIFIERS: Hyperlipidemia type: mixed hyperlipidemia Qualified Code(s): E78.2 - Mixed hyperlipidemia (11) GERD (gastroesophageal reflux disease): QUALIFIERS: Esophagitis presence: without esophagitis Qualified Code(s): K21.9 - Gastro-esophageal reflux disease without esophagitis (12) Depression: QUALIFIERS: Depression Type: reactive depression Qualified Code(s): F32.9 - Major depressive disorder, single episode, unspecified (13) Diabetes mellitus type 2 in obese: (14) Neuropathy: (15) Hypertension: QUALIFIERS: Hypertension type: primary hypertension Qualified Code(s): I10 - Essential (primary) hypertension (16) Low HDL (under 40): (17) Urinary incontinence: PLAN: Plan 1. Continue therapy 2. Recheck a CBC and BMP on Saturday. 3. I reinforced with Don that he will be going home at [place] from acute rehab and he was relieved. 4. He does not like drinking water so we discussed other sugar free caffeine free drinks he could have. I brought him strawberry flavored water and he seemed to like that. Also likes CF, sugar free iced hoda with a sugar substitute. 5. I placed a call to his neurologist, Dr. Margot Del Rio, and he was not in the office today but, I left my contact info with the office and asked that he call me at his convenience. I explained to Don that good fluid intake is critical to optimizing his mentation. Charges/Coding Visit Charges Inpatient E&M: 36403 Subs Hosp L2
[2023-04-26 20:01] VITALS: O2SAT 95
[2023-04-26 22:00] VITALS: BP 131/69; PULSE 68; RESP 17; TEMP 37.1; O2SAT 95
[2023-04-26] MEDS: Atorvastatin Calcium 10 MG Tablet 5 MG PO (22:25)
[2023-04-26] MEDS: Senna/Docusate Sodium 1 Tablet 2 TABLET PO (22:26)
[2023-04-27] MEDS: 0.9% Normal Saline (1000mL) 1,000 ML 75 ML IV (01:06)
[2023-04-27] MEDS: Menthol/Lanolin/Calamine/Znox 113 GM Tube 1 APPLIC TOPICAL ×2 (04:56→21:48)
[2023-04-27] MEDS: Enoxaparin 40 MG/0.4 ML Syringe SC (04:56)
[2023-04-27 05:00] VITALS: BMI 33.9
[2023-04-27] MEDS: Gabapentin 400 MG Capsule 800 MG PO ×3 (05:00→21:47)
[2023-04-27 08:00] VITALS: BP 129/70; PULSE 61; RESP 16; TEMP 36.4; O2SAT 95
[2023-04-27] MEDS: Aspirin 81 MG TAB.CHEW PO (08:10)
[2023-04-27] MEDS: Clopidogrel Bisulfate 75 MG Tablet PO (08:10)
[2023-04-27] MEDS: Ascorbic Acid 500 MG Tablet 1000 MG PO (08:10)
[2023-04-27] MEDS: Cyanocobalamin 500 MCG Tablet 1000 MCG PO (08:10)
[2023-04-27] MEDS: Losartan Potassium 50 MG Tablet PO (08:10)
[2023-04-27] MEDS: metFORMIN HCl 1,000 MG Tablet 1000 MG PO (08:10)
[2023-04-27] MEDS: Pantoprazole Sodium 40 MG Tablet PO (08:11)
[2023-04-27] MEDS: Sertraline 50 MG Tablet PO (08:11)
[2023-04-27 13:30] VITALS: BMI 33.9
[2023-04-27] MEDS: metFORMIN HCl 500 MG Tablet PO (16:35)
[2023-04-27 19:36] VITALS: BP 145/78; RESP 16; TEMP 36.8; O2SAT 93
[2023-04-27 21:29] VITALS: BMI 33.9
[2023-04-27] MEDS: Atorvastatin Calcium 10 MG Tablet 5 MG PO (21:45)
[2023-04-27] MEDS: Senna/Docusate Sodium 1 Tablet 2 TABLET PO (21:49)
[2023-04-27 22:00] VITALS: PULSE 83; RESP 15; O2SAT 96
[2023-04-28] MEDS: Gabapentin 400 MG Capsule 800 MG PO ×3 (05:20→20:41)
[2023-04-28] MEDS: Enoxaparin 40 MG/0.4 ML Syringe SC (05:21)
[2023-04-28] MEDS: Menthol/Lanolin/Calamine/Znox 113 GM Tube 1 APPLIC TOPICAL ×2 (05:21→20:41)
[2023-04-28 07:00] VITALS: BP 150/71; PULSE 67; RESP 16; TEMP 36.9; O2SAT 92
[2023-04-28] MEDS: Losartan Potassium 50 MG Tablet PO (07:37)
[2023-04-28] MEDS: Sertraline 50 MG Tablet PO (07:37)
[2023-04-28] MEDS: Aspirin 81 MG TAB.CHEW PO (07:37)
[2023-04-28] MEDS: Clopidogrel Bisulfate 75 MG Tablet PO (07:37)
[2023-04-28] MEDS: Pantoprazole Sodium 40 MG Tablet PO (07:37)
[2023-04-28] MEDS: Ascorbic Acid 500 MG Tablet 1000 MG PO (07:37)
[2023-04-28] MEDS: metFORMIN HCl 1,000 MG Tablet 1000 MG PO (07:37)
[2023-04-28] MEDS: Cyanocobalamin 500 MCG Tablet 1000 MCG PO (07:38)
[2023-04-28 08:09] LABS: Hematocrit 37.9 % (40-54); Hemoglobin 11.9 g/dL (13.0-16.5); Mean Corp Hgb Conc 31.4 g/dL (32-36); Mean Corpuscular Hgb 28.7 pg (27.0-32.0); Mean Corpuscular Volume 91.3 fL (80-94); Platelet Count 289 K/mm3 (150-450); RBC Distribution Width CV 13.8 % (11.6-14.6); RBC Distribution Width SD 46.6 fl (35.1-43.9); Red Blood Count 4.15 M/mm3 (4.6-6.2); White Blood Count 8.9 K/mm3 (4.4-11.0)
[2023-04-28 08:26] LABS: Anion Gap 4 (5-15); BUN 24 mg/dL (7-18); BUN/Creat Ratio 20.3 RATIO (10-20); Calcium,Total 9.5 mg/dL (8.5-10.1); Chloride 106 mmol/L (98-107); Creatinine, Serum 1.18 mg/dL (0.70-1.30); EST Glomerular Filtration Rate 64 mL/min (>60); Est Glom Filt Rate - Afr Amer 77 mL/min (>60); Estimated Creatinine Clearance 49.01 ml/min; Glucose 125 mg/dL (74-106); Potassium 4.1 mmol/L (3.5-5.1); Sodium Level 137 mmol/L (136-145)
[2023-04-28 09:41] VITALS: BMI 33.9
[2023-04-28] MEDS: metFORMIN HCl 500 MG Tablet PO (17:06)
[2023-04-28 19:06] VITALS: BP 137/64; PULSE 73; RESP 16; TEMP 36.6; O2SAT 95
--- NOTE | 2023-04-28 19:55 | NURSING ---
Pt attempted to self transfer to BR, setting off PA. Pt found by staff reaching over side of recliner to disengage PA. Staff reminded pt of safety measures in place for pt's well being. Staff took pt to toilet and hs ADLs provided at this time. Pt repositioned in bed and BA engaged.
[2023-04-28 19:58] VITALS: BMI 33.9
[2023-04-28] MEDS: Atorvastatin Calcium 10 MG Tablet 5 MG PO (20:40)
[2023-04-28] MEDS: Senna/Docusate Sodium 1 Tablet 2 TABLET PO (20:41)
[2023-04-28 22:00] VITALS: PULSE 78; O2SAT 96
[2023-04-29 05:37] LABS: Hematocrit 35.6 % (40-54); Hemoglobin 11.3 g/dL (13.0-16.5); Mean Corp Hgb Conc 31.7 g/dL (32-36); Mean Corpuscular Hgb 29.5 pg (27.0-32.0); Mean Platelet Vol. 9.6 fl (6.2-12.0); Platelet Count 254 K/mm3 (150-450); RBC Distribution Width SD 47.6 fl (35.1-43.9); Red Blood Count 3.83 M/mm3 (4.6-6.2); White Blood Count 8.4 K/mm3 (4.4-11.0)
[2023-04-29] MEDS: Enoxaparin 40 MG/0.4 ML Syringe SC (05:51)
[2023-04-29] MEDS: Gabapentin 400 MG Capsule 800 MG PO ×3 (06:03→20:26)
[2023-04-29] MEDS: Menthol/Lanolin/Calamine/Znox 113 GM Tube 1 APPLIC TOPICAL ×2 (06:03→20:25)
[2023-04-29] MEDS: 0.9% Saline Lock 10 ML Syringe IV (06:12)
[2023-04-29 07:30] VITALS: BP 152/77; PULSE 66; RESP 15; TEMP 36.3; O2SAT 98
[2023-04-29] MEDS: Aspirin 81 MG TAB.CHEW PO (08:12)
[2023-04-29] MEDS: metFORMIN HCl 1,000 MG Tablet 1000 MG PO (08:12)
[2023-04-29] MEDS: Cyanocobalamin 500 MCG Tablet 1000 MCG PO (08:12)
[2023-04-29] MEDS: Pantoprazole Sodium 40 MG Tablet PO (08:13)
[2023-04-29] MEDS: Losartan Potassium 50 MG Tablet PO (08:13)
[2023-04-29] MEDS: Clopidogrel Bisulfate 75 MG Tablet PO (08:13)
[2023-04-29] MEDS: Ascorbic Acid 500 MG Tablet 1000 MG PO (08:13)
[2023-04-29] MEDS: Senna/Docusate Sodium 1 Tablet 2 TABLET PO ×2 (08:13→20:26)
[2023-04-29] MEDS: Sertraline 50 MG Tablet PO (08:14)
[2023-04-29] MEDS: Acetaminophen 325 MG Tablet 650 MG PO ×2 (10:11→16:51)
--- NOTE | 2023-04-29 11:51 | PCM.PROGNOTE ---
Subjective Subjective Afebrile VSS Maintaining appropriate oxygen saturation on RA Oral intake is erratic for fluids but good for food. Yesterday he took 2195 cc orally. Outputs are not accurate secondary to urinary incontinence. The blood sugar record was reviewed and the blood sugars are under excellent control with no hypoglycemia. Discussed with nursing - nursing reports he is incontinent of urine. He has been off Detrol and he is c/o urinary urgency. I explained we stopped the Detrol because it is associated with drowsiness, dizziness, dry eyes, dry mouth and increase confusion (he already has dementia) Reviewed the PT/OT/ST notes Medication list reviewed. I have not as of yet received a call form his neurologist, Dr. Del Rio. Left a message with office on Saturday and gave them my CELL # and asked if he would please call me. Objective Data Objective Data Vital Signs: Vital Signs Temp Pulse Resp BP Pulse Ox O2 Del Method 97.3 F L 66 15 152/77 H 98 Room Air 04/29/23 07:30 04/29/23 07:30 04/29/23 07:30 04/29/23 07:30 04/29/23 07:30 04/29/23 09:08 Oxygen Delivery Method Room Air Weight: 216 lb 7.903 oz Body Mass Index (BMI) 33.9 Intake & Output: Intake and Output for Last 24 Hours 04/27/23 04/28/23 04/29/23 23:59 23:59 23:59 Intake Total 1660 / 1780 2195 / 2195 300 / 300 Output Total 550 / 550 550 / 650 100 / 100 Balance 1110 / 1230 1645 / 1545 200 / 200 Lab / Micro Data 04/29/23 05:29 04/28/23 07:52 Labs: Laboratory Results - last 24 hr 04/29/23 05:29: WBC 8.4, RBC 3.83 L, Hgb 11.3 L, Hct 35.6 L, MCV 93.0, MCH 29.5, MCHC 31.7 L, RDW Std Deviation 47.6 H, RDW Coeff of Isaura 14.0, Plt Count 254, MPV 9.6 Micro: Microbiology 04/23/23 16:00 Urine, Clean Catch Urine Culture - Final Gram negative trupti 04/18/23 08:54 Stool Stool Occult Blood (LUIS) - Final Physical Exam Const alert Constitutional Narrative: Here for when talking about going General Appearance: cooperative Orientation / Consciousness: confused Resp clear to auscultation bilaterally Effort and Inspection: Negative for tachypneic Auscultation: diminished lung sounds Cardio regular rate, regular rhythm and no gallops GI normal to inspection, nondistended, normoactive bowel sounds, soft to palpation and non-tender Extremity no calf tenderness Extremity Narrative: Peripheral edema is controlled provide bilateral MARGOT hose there is no pitting at the ankles. Skin General Skin Exam: no breakdown Rashes: no rashes Psych Appearance: appropriate Attitude: No agitated Mood & Affect: depressed Assessment & Plan Assessment/Plan (1) Debility: (2) Ischemic cerebrovascular accident (CVA): PLAN: small stroke in the R parietal lobe. Found on MRI (3) Cognitive dysfunction: PLAN: this predates the stroke. He also has urinary incontinent. (4) Acute left-sided muscle weakness: (5) Chronic renal failure, stage 3a: (6) Normochromic normocytic anemia: (7) Left ventricular hypertrophy: PLAN: Mild (8) Morbid obesity: (9) Sleep apnea: QUALIFIERS: Sleep apnea type: obstructive Qualified Code(s): G47.33 - Obstructive sleep apnea (adult) (pediatric) PLAN: Compliant with CPAP. Obstructive (10) Hyperlipidemia: QUALIFIERS: Hyperlipidemia type: mixed hyperlipidemia Qualified Code(s): E78.2 - Mixed hyperlipidemia (11) GERD (gastroesophageal reflux disease): QUALIFIERS: Esophagitis presence: without esophagitis Qualified Code(s): K21.9 - Gastro-esophageal reflux disease without esophagitis (12) Depression: QUALIFIERS: Depression Type: reactive depression Qualified Code(s): F32.9 - Major depressive disorder, single episode, unspecified (13) Diabetes mellitus type 2 in obese: (14) Neuropathy: (15) Hypertension: QUALIFIERS: Hypertension type: primary hypertension Qualified Code(s): I10 - Essential (primary) hypertension (16) Low HDL (under 40): (17) Urinary incontinence: PLAN: Plan 1. Continue therapy 2. Discontinue Accu-Cheks to as needed. Blood sugars are under excellent control with no hypoglycemia. 3. Plan is for discharge home on 05/03/2023 at 9 AM. Diana feels that she can provide all the assistance that he needs and if she needs to leave the house family will be able to pitch in. SW also discussed Adult daycare at the [facility] and she will give Diana the info to check it out. 4. check with the lab about the Gabapentin level that was drawn on 04/23/23. Charges/Coding Visit Charges Inpatient E&M: 32491 Subs Hosp L2
--- NOTE | 2023-04-29 12:09 | NURSING ---
pt back to room from therapy room and incont with attends changed. bladder scanned for only 34cc post void however. dr. timmons aware. pt also c/o of constantly dripping nose today and wanting 'allergy pill'. dr. timmons aware.
[2023-04-29 14:37] VITALS: BMI 33.9
--- NOTE | 2023-04-29 16:46 | CASEMGMT ---
Social Work SW followed up with IDT on outcome of therapy training with . IDT has no concerns with caring for pt at home. Recommending HHC PT/OT/ST and [facility]. SW phoned to follow up on DC plans. agrees training went well. SW offered to set DC date. agreed and prefers 05/03 with HHC and [facility]. IDT agreeable to DC date. SW inquired about HHC preference and offered list of skilled HHC agencies with quality and resource data via [employer]. has no preference and denies list, agreeable to [facility] to transport with assistance of son. SW phoned referral to [facility]/OT/ST. Sent [facility] referral to [facility] via [employer]. Plan: DC home with 05/03, [facility] PT/OT/ST, [facility] Peggy Samuel, CLINICAL NURSING DIRECTOR SAY
[2023-04-29] MEDS: metFORMIN HCl 500 MG Tablet PO (16:51)
[2023-04-29 19:35] VITALS: BP 142/82; PULSE 65; RESP 17; TEMP 36.8; O2SAT 97
[2023-04-29 20:13] VITALS: BMI 33.9
[2023-04-29] MEDS: Atorvastatin Calcium 10 MG Tablet 5 MG PO (20:26)
[2023-04-29 21:18] VITALS: BMI 33.9
[2023-04-30] MEDS: Gabapentin 400 MG Capsule 800 MG PO ×3 (06:06→20:47)
[2023-04-30] MEDS: Menthol/Lanolin/Calamine/Znox 113 GM Tube 1 APPLIC TOPICAL ×2 (06:06→20:47)
[2023-04-30] MEDS: Enoxaparin 40 MG/0.4 ML Syringe SC (06:06)
[2023-04-30 07:25] VITALS: BP 137/64; PULSE 60; RESP 16; TEMP 36.7; O2SAT 95
[2023-04-30] MEDS: Ascorbic Acid 500 MG Tablet 1000 MG PO (08:03)
[2023-04-30] MEDS: Aspirin 81 MG TAB.CHEW PO (08:04)
[2023-04-30] MEDS: Cyanocobalamin 500 MCG Tablet 1000 MCG PO (08:04)
[2023-04-30] MEDS: Sertraline 50 MG Tablet PO (08:04)
[2023-04-30] MEDS: Senna/Docusate Sodium 1 Tablet 2 TABLET PO (08:04)
[2023-04-30] MEDS: Losartan Potassium 50 MG Tablet PO (08:04)
[2023-04-30] MEDS: metFORMIN HCl 1,000 MG Tablet 1000 MG PO (08:04)
[2023-04-30] MEDS: Pantoprazole Sodium 40 MG Tablet PO (08:04)
[2023-04-30] MEDS: Clopidogrel Bisulfate 75 MG Tablet PO (08:04)
[2023-04-30 08:07] VITALS: BMI 33.9
[2023-04-30] MEDS: Acetaminophen 325 MG Tablet 650 MG PO ×2 (09:22→18:36)
[2023-04-30 13:52] VITALS: BMI 34.0
--- NOTE | 2023-04-30 15:19 | PN_ITS ---
Subjective Subjective Afebrile VSS Maintaining appropriate oxygen saturation on RA Oral intake is always good for food. Fluid intake is very erratic and tends to be poor when you are not constantly reminding him to increase his fluid intake and handing in water. He has lost a few pounds since arriving on rehab. Weights are not very reliable and on 1 day we have 3 different weights for the same day. Discussed with nursing - no problems that need addressed. He is sleeping well at night and is compliant with CPAP. Reviewed the PT/OT/ST notes Medication list reviewed. He tells me that since the Detrol was discontinued he has increased urinary frequency but, the urgency is about the same. He is still incontinent of urine. He denies dysuria. He denies headache, lightheadedness, vertigo, shortness of breath, cough, chest pain, Nausea/vomiting/diarrhea and calf pain. Today he is telling me that his Left ankle is sore. He denies any history of gout. He has other joints that are painful as well due to the the cold wet weather. I spoke to Dr. Del Rio today. He feels that the last time he saw Blake he likely had predementia. I update him that since he last saw Blake he had a small R parietal CVA and that the confusion has been getting worse per his ....even prior to the stroke. He has been having visual hallucinations as well. Will try and get an appt for Blake to follow up with Dr. Del Rio sooner rather than later post DC from rehab. He may benefit from starting a drug to tx dementia now that things seem to be progressing. Blake an I discussed that Detrol can cause dizziness, confusion and lead to falls in the elderly and we are trying to avoid using drugs such as these. He is willing to stick it out and try not using it. PVR's are not high. Wondering if a condom cath would work for him.......will discuss with nursing. Apparently he had a pure wick for men while on the acute side of the hospital and he tells me he loved it . Objective Data Objective Data Vital Signs: Vital Signs Temp Pulse Resp BP Pulse Ox O2 Del Method 98.1 F 60 16 137/64 H 95 Room Air 04/30/23 07:25 04/30/23 07:25 04/30/23 07:25 04/30/23 07:25 04/30/23 07:25 04/30/23 07:25 Oxygen Delivery Method Room Air Weight: 217 lb 6 oz Body Mass Index (BMI) 34.0 Intake & Output: Intake and Output for Last 24 Hours 04/28/23 04/29/23 04/30/23 23:59 23:59 23:59 Intake Total 2195 / 2195 1020 / 1020 360 / 360 Output Total 550 / 650 325 / 325 300 / 300 Balance 1645 / 1545 695 / 695 60 / 60 Lab / Micro Data 04/29/23 05:29 04/28/23 07:52 Micro: Microbiology 04/23/23 16:00 Urine, Clean Catch Urine Culture - Final Gram negative trupti 04/18/23 08:54 Stool Stool Occult Blood (LUIS) - Final Physical Exam Const alert and no apparent distress General Appearance: cooperative Resp clear to auscultation bilaterally GI normal to inspection, nondistended, normoactive bowel sounds, soft to palpation and non-tender Extremity Extremity Narrative: He has venous varicosities of both LE's. Despite wearing Rohan hose he has some pitting edema of the ankles only L>R. the feet are cool to touch BL. He has no pain with movement of the ankle. There is no hyperaesthesia. No increased warmth to touch of either ankle. No redness. No calf tenderness. Pedal pulses are diminished BL. There is essie enlargement of the L ankle when compared to the left. He tells me that he has had a bad sprain of the left ankle in the past. No skin breakdown Skin Rashes: no rashes Assessment & Plan Assessment/Plan (1) Debility: (2) Ischemic cerebrovascular accident (CVA): PLAN: small stroke in the R parietal lobe. Found on MRI (3) Cognitive dysfunction: PLAN: this predates the stroke. He also has urinary incontinent. (4) Acute left-sided muscle weakness: (5) Chronic renal failure, stage 3a: (6) Normochromic normocytic anemia: (7) Left ventricular hypertrophy: PLAN: Mild (8) Morbid obesity: (9) Sleep apnea: QUALIFIERS: Sleep apnea type: obstructive Qualified Code(s): G47.33 - Obstructive sleep apnea (adult) (pediatric) PLAN: Compliant with CPAP. Obstructive (10) Hyperlipidemia: QUALIFIERS: Hyperlipidemia type: mixed hyperlipidemia Qualified Code(s): E78.2 - Mixed hyperlipidemia (11) GERD (gastroesophageal reflux disease): QUALIFIERS: Esophagitis presence: without esophagitis Qualified Code(s): K21.9 - Gastro-esophageal reflux disease without esophagitis (12) Depression: QUALIFIERS: Depression Type: reactive depression Qualified Code(s): F32.9 - Major depressive disorder, single episode, unspecified (13) Diabetes mellitus type 2 in obese: (14) Neuropathy: (15) Hypertension: QUALIFIERS: Hypertension type: primary hypertension Qualified Code(s): I10 - Essential (primary) hypertension (16) Low HDL (under 40): (17) Urinary incontinence: (18) Osteoarthritis: PLAN: Plan 1. Continue therapy 2. Lab test results of the gabapentin level drawn on 04/23/2023 and tells me they will put it in the chart. 3. Obtain a plain x-ray of the left ankle 4. Start arthritis compounded cream twice daily to the left ankle. I do not feel the ankle pain is due to neuropathy. Will decrease the Gabapentin dose again. 5. Will try a male pure wick catheter tonight. I would not want him to wear it 12/11 but, it may keep him dry at night and he and his would both be able to get sleep. 6. Will have nursing schedule an appointment for Don with Dr. Del Rio post [place] from rehab. 7. Plan discharge on Saturday to home. Will have [facility] 8. Patient is unsafe to use a cane and requires a walker for ambulation in the home and the community. Charges/Coding Visit Charges Inpatient E&M: 72064 Subs Hosp L2
--- NOTE | 2023-04-30 16:20 | RAD_ITS ---
STUDY: X-RAY - LEFT ANKLE REASON FOR EXAM: Male, 77 years old. PAIN TECHNIQUE: AP and lateral view(s) of the ankle. COMPARISON: None. FINDINGS: Normal visualized distal tibia and fibula. Normal medial and lateral malleoli. Normal tibiotalar articulation and ankle mortise. Normal visualized talus and calcaneus. The visualized subtalar, talonavicular, calcaneocuboid and tarsal articulations are normal. Bimalleolar soft tissue swelling. RAD/Ankle 2 Views IMPRESSION: Bimalleolar sprain. No acute fracture or dislocation Electronically Signed: Yosef Carvajal MD at 19:15 EST ,
[2023-04-30] MEDS: metFORMIN HCl 500 MG Tablet PO (17:25)
[2023-04-30] MEDS: Atorvastatin Calcium 10 MG Tablet 5 MG PO (20:44)
[2023-04-30] MEDS: Arthritis Pain Compound 60 CLICK TUBE TOPICAL (20:47)
[2023-04-30 21:56] VITALS: BP 126/64; PULSE 62; RESP 18; TEMP 36.7; O2SAT 96
[2023-05-01] MEDS: Gabapentin 400 MG Capsule 800 MG PO ×3 (05:44→20:23)
[2023-05-01] MEDS: Enoxaparin 40 MG/0.4 ML Syringe SC (05:44)
[2023-05-01] MEDS: 0.9% Saline Lock 10 ML Syringe IV ×2 (05:45→20:18)
[2023-05-01] MEDS: Menthol/Lanolin/Calamine/Znox 113 GM Tube 1 APPLIC TOPICAL ×2 (05:45→20:18)
[2023-05-01] MEDS: Arthritis Pain Compound 60 CLICK TUBE TOPICAL ×2 (08:27→20:19)
[2023-05-01] MEDS: Senna/Docusate Sodium 1 Tablet 2 TABLET PO ×2 (08:27→20:23)
[2023-05-01] MEDS: Losartan Potassium 50 MG Tablet PO (08:27)
[2023-05-01] MEDS: Sertraline 50 MG Tablet PO (08:27)
[2023-05-01] MEDS: Aspirin 81 MG TAB.CHEW PO (08:27)
[2023-05-01] MEDS: Pantoprazole Sodium 40 MG Tablet PO (08:28)
[2023-05-01] MEDS: metFORMIN HCl 1,000 MG Tablet 1000 MG PO (08:28)
[2023-05-01] MEDS: Ascorbic Acid 500 MG Tablet 1000 MG PO (08:28)
[2023-05-01] MEDS: Cyanocobalamin 500 MCG Tablet 1000 MCG PO (08:28)
[2023-05-01] MEDS: Clopidogrel Bisulfate 75 MG Tablet PO (08:29)
[2023-05-01 09:04] VITALS: BP 133/73; PULSE 60; RESP 16; TEMP 36.6; O2SAT 96
[2023-05-01 10:00] VITALS: PULSE 66; O2SAT 95
[2023-05-01 14:51] VITALS: BMI 34.0
--- NOTE | 2023-05-01 17:52 | NURSING ---
pt had stir dewitt and had eaten it all and the rice when pt felt like like the food he had swallowed was not going down, that it was stuck in esophagus-pt pox never went below 93%, pulse never over 80-pt able to swallow water and after a few mintues, he felt like it had passed-sitting up in chair-denies pain
[2023-05-01 19:53] VITALS: BP 110/67; PULSE 66; RESP 16; TEMP 36.8; O2SAT 97
[2023-05-01 19:57] VITALS: BMI 34.0
[2023-05-01] MEDS: Atorvastatin Calcium 10 MG Tablet 5 MG PO (20:22)
[2023-05-01 20:31] VITALS: PULSE 66; RESP 16; O2SAT 96
[2023-05-02] MEDS: Menthol/Lanolin/Calamine/Znox 113 GM Tube 1 APPLIC TOPICAL ×2 (05:22→20:51)
[2023-05-02] MEDS: Gabapentin 400 MG Capsule 800 MG PO (05:23)
[2023-05-02] MEDS: Enoxaparin 40 MG/0.4 ML Syringe SC (05:23)
[2023-05-02 06:48] VITALS: BP 140/67; PULSE 58; RESP 16; TEMP 36.4; O2SAT 95
[2023-05-02 06:50] VITALS: BMI 34.0
[2023-05-02] MEDS: Cyanocobalamin 500 MCG Tablet 1000 MCG PO (08:23)
[2023-05-02] MEDS: Sertraline 50 MG Tablet PO (08:23)
[2023-05-02] MEDS: Ascorbic Acid 500 MG Tablet 1000 MG PO (08:23)
[2023-05-02] MEDS: Losartan Potassium 50 MG Tablet PO (08:23)
[2023-05-02] MEDS: metFORMIN HCl 1,000 MG Tablet 1000 MG PO (08:23)
[2023-05-02] MEDS: Pantoprazole Sodium 40 MG Tablet PO (08:24)
[2023-05-02] MEDS: Arthritis Pain Compound 60 CLICK TUBE TOPICAL ×2 (08:24→20:48)
[2023-05-02] MEDS: Senna/Docusate Sodium 1 Tablet 2 TABLET PO ×2 (08:24→20:49)
[2023-05-02] MEDS: Aspirin 81 MG TAB.CHEW PO (08:24)
--- NOTE | 2023-05-02 09:05 | PCM.PROGNOTE ---
Subjective Subjective Blake was seen on team rounds today. His Diana was present in the room. Afebrile VSS Maintaining appropriate oxygen saturation on RA Oral intake is good Discussed with nursing - He was eating some dry rice for dinner last night and choked. Diet was changed to Carb control with soft bite size foods that are moist. He scored 26/30 correct answers on his Cognitive LOG testing today Medication list reviewed. XRAY of the Left ankle done recently with no evidence fracture or dislocation. Joints are well maintained. Blake tells me that his left ankle no longer hurts. He is very happy with the arthritis cream we have been applying twice daily. Blake denies cephalgia, vertigo, lightheadedness, cough, shortness of breath, chest pain, palpitations, nausea/vomiting/abdominal pain, dysuria and calf tenderness. He is still complaining of urinary urgency which is worse since the tolterodine was discontinued. Objective Data Objective Data Vital Signs: Vital Signs Temp Pulse Resp BP Pulse Ox O2 Del Method O2 Flow Rate 97.5 F L 58 L 16 140/67 H 95 Nasal Cannula 3 05/02/23 06:48 05/02/23 06:48 05/02/23 06:48 05/02/23 06:48 05/02/23 06:48 05/02/23 06:48 05/02/23 06:48 Oxygen Flow Rate (L/min) 3 Oxygen Delivery Method Nasal Cannula Weight: 217 lb 4.8 oz Body Mass Index (BMI) 34.0 Intake & Output: Intake and Output for Last 24 Hours 04/30/23 05/01/23 05/02/23 23:59 23:59 23:59 Intake Total 600 / 600 1350 / 1350 480 / 480 Output Total 300 / 300 1275 / 1275 900 / 900 Balance 300 / 300 75 / 75 -420 / -420 Lab / Micro Data 04/29/23 05:29 04/28/23 07:52 Micro: Microbiology 04/23/23 16:00 Urine, Clean Catch Urine Culture - Final Gram negative trupti 04/18/23 08:54 Stool Stool Occult Blood (LUIS) - Final Physical Exam Const alert and no apparent distress General Appearance: cooperative HEENT moist oral mucous membranes HEENT Narrative: Mucous membranes have been consistently dry but since he is being provided with fluids he likes the taste of he has been doing better with oral fluid intake. Resp clear to auscultation bilaterally Cardio regular rate, regular rhythm and no gallops GI normal to inspection, nondistended, normoactive bowel sounds, soft to palpation and non-tender Extremity Extremity Narrative: He has no ankle edema today. He has no pain in the left ankle with active and passive ROM. No erythema and no increased warmth to touch. Skin Rashes: no rashes Neuro Neuro Narrative: Speech is fluent today and he is not having word finding difficulties. Assessment & Plan Assessment/Plan (1) Debility: (2) Ischemic cerebrovascular accident (CVA): (3) Cognitive dysfunction: (4) Acute left-sided muscle weakness: (5) Chronic renal failure, stage 3a: (6) Normochromic normocytic anemia: (7) Left ventricular hypertrophy: (8) Morbid obesity: (9) Sleep apnea: QUALIFIERS: Sleep apnea type: obstructive Qualified Code(s): G47.33 - Obstructive sleep apnea (adult) (pediatric) (10) Hyperlipidemia: QUALIFIERS: Hyperlipidemia type: mixed hyperlipidemia Qualified Code(s): E78.2 - Mixed hyperlipidemia (11) GERD (gastroesophageal reflux disease): QUALIFIERS: Esophagitis presence: without esophagitis Qualified Code(s): K21.9 - Gastro-esophageal reflux disease without esophagitis (12) Depression: QUALIFIERS: Depression Type: reactive depression Qualified Code(s): F32.9 - Major depressive disorder, single episode, unspecified (13) Diabetes mellitus type 2 in obese: (14) Neuropathy: (15) Hypertension: QUALIFIERS: Hypertension type: primary hypertension Qualified Code(s): I10 - Essential (primary) hypertension (16) Low HDL (under 40): (17) Urinary incontinence: (18) Osteoarthritis: PLAN: Plan 1. Continue therapy 2. Decrease gabapentin to 600 g p.o. 3 times daily 3. Continue male pure wick catheter at night - Will ask nursing/SW where this item can be purchased. 4. Follow-up with Dr. Roshan Griffith post discharge for evaluation for recurrent esophageal stenosis in a patient with a history of esophageal dilatation in the past for dysphagia. 5. DC tomorrow to home 6. Follow up with Dr. Del Rio post DC 7. BS's are well controlled and he has had no hypoglycemia. 8. Restart Detrol 2 mg daily Charges/Coding Visit Charges Inpatient E&M: 15521 Subs Hosp L2
--- NOTE | 2023-05-02 12:49 | CASEMGMT ---
Social Work IDT met with patient and for Team meeting. Discussed patient's progress in PT/OT/ST/SN. Confirmed DC 05/03 home with . Educated to pt not being eligible for insurance coverage with [facility] as pt received rollator in July 2022. SW offered for pt to pay privately at $67 through [employer]. Pt/ agreed to pay privately. SW notified [employer] and can pay and picking tech the walker at the [facility]. SW updated and to complete transaction. Pt has [facility] PT/OT/ST coordinated at [place]. SW also provided resources for external male catheter, per Dr and pt/ request. Plan: DC home with 05/03, [facility] PT/OT/ST - [facility] OOP. URIEL CaballeroW
[2023-05-02 13:06] VITALS: BMI 34.0
[2023-05-02] MEDS: Gabapentin 600 MG Tablet PO ×2 (14:15→20:50)
[2023-05-02] MEDS: 0.9% Saline Lock 10 ML Syringe IV (14:15)
--- NOTE | 2023-05-02 14:31 | PCM.DC ---
Discharge Instructions Diet Discharge Diet: 1800 Calorie Control Diet, Carb Control Diet and - (SOFT, MOIST DIET WITH SMALL BITES. Avoid chunks of meat.) Activity Discharge Activity: May Not Drive, May Shower and Use Walker (Use a front wheel walker, not a rollator.) Weight Bearing Status: Full weight bearing Dressing / Incision Call your doctor if you observe: Fever of 101 or Higher, Inability to urinate, Inability to have a bowel movement, Shortness of breath, Dizziness, Fainting spells, Swelling in the ankles, Chest pain, Increased palpitations (irregular heartbeat), Calf discomfort, Uncontrolled pain and - (Burning pain in the legs or recurrence of restless legs. ) Follow Up Care Please Follow Up With: Afsaneh Childress NP-C When: 05/10/2023 at 11 AM....this is the CABLE TELEVISION PROGRAM DIRECTOR working with Dr. Whitaker. you will also need to follow up with Dr. Del Rio for neurology and with Dr. Mccrary Friend for dysphagia with hx of esophageal stenosis requiring dilation. Test Results: Test results from this visit will be discussed in further detail at your follow-up appointment, if applicable. Pending Tests Upon Discharge: none Discharge Plan Admission Admit Date/Time: 04/16/23 13:56 Primary Reason for Your Visit: Debility due to R parietal ischemic CVA. Attending Provider: Cora Potter Primary Care Provider: Yosef Whitaker Instructions Patient Instructions: Catheter-Linked Urinary Tract ..., Discharge Instructions for Stroke, Dysphagia Diet- Managing Foods Additional Instructions / Restrictions: 1. Do as many things for yourself as you can. I want you to set up your pill box while your is sitting next you to check your work. Read the paper daily and consider doing a Sudoku puzzle, crossword puzzle, anagram or other mental activity to stimulate your brain.......Use it or lose it. Playing games such as cards and board games with family members can also help stimulate the brain. 2. Make sure to get some exercise 5-6 days a week....this helps with the brain but, also helps with maintaining good joint health and mobility. Use the front wheeled walker when you are walking. 3. Only use the Primo fit when you are in bed sleeping to decrease night time urination and urinary incontinence. Wearing it all the time significantly increases the risk for urinary tract infection. The symptoms of a urinary tract infection include fever, burning with urination, increased frequency and urgency of urination, fatigue, confusion, nausea/vomiting and flank pain. Any of the symptoms can be associated with a urinary tract infection. If you experience these symptoms call your primary care doctor. 4. Your blood sugars are well controlled. We were able to decrease some of the diabetic medications since you are on a better diet. You have even lost some weight while on rehab. 5. We stopped the diuretic (called HCTZ or hydrochlorothiazide) because you do not drink enough fluids and it makes your kidney function worse. This medication was being used to treat high blood pressure and possibly to help control the swelling in the ankles. The swelling no is being controlled well with compression stockings. You BP is good with just 50 mg of Cozaar (also called Losartan once a day. the goal for your BP since you recently had a stroke is to keep it under 130/80. If your BP is above this your doctor may want to increase the dose of the Cozaar....this medication also helps to prevent kidney disease in diabetics. There are 5 stages of kidney disease and your are in stage 3 b which is moderate. We do not want this to get any worse so Cozaar is a good drug for you. 6. You are having some difficulty swallowing and I know you have had your esophagus stretched in the past and it has been a few years since you last had this procedure done. The test operator at the hospital here is Dr. Griffith and unfortunately he is not taking any new patients. We are going to try to get you an appt with Dr. Cash. He is local as well. Your foods should be soft and MOIST and you should take small bites. Sitting upright at 90 degrees while eating and remaining upright for 30 minutes afterward will help prevent choking and aspiration. You should avoid chunks of meat as these can easily get stuck in an esophagus that is narrowed. 7. You were quite depressed at admission to rehab and depression can cause trouble with memory. You were started on a antidepressant called Sertraline (also called Zoloft) and you have had no adverse reactions from this medication. You are no longer tearful, you are sleeping well at night and Your memory has improved. I would continue this medication for the next 6 months and IF at that time you are doing well and want to try getting off the Sertraline you should first cut the dose in half for a month - 6 weeks and if no recurrence of depressive symptoms cut in half again and re-evaluate in another 4-6 weeks. 8. It has been a pleasure getting to know you and Diana and you have made some very good progress while on rehab. If you send he has any questions after leaving acute rehab please do not hesitate to call me. OFFICE: [phone] CELL: [phone] Discharge Orders/Prescriptions Prescriptions: New tolterodine 2 mg Capsule,Extended Release 24hr 2 mg PO DAILY Qty: 30 0RF gabapentin 600 mg Tablet 600 mg PO TID Qty: 90 0RF atorvastatin 10 mg Tablet 5 mg PO QHS Qty: 30 0RF metformin 1,000 mg Tablet 500 mg PO BREAKFAST Qty: 90 0RF Rx Instructions: 2 tabs in the AM and 1 tab with supper. sennosides-docusate sodium [Stool Softener-Stimulant Laxat] 8.6-50 mg Tablet 2 tab PO BID Qty: 120 0RF sertraline 50 mg Tablet 50 mg PO DAILY Qty: 30 0RF Continued losartan 50 MG tablet 50 mg PO DAILY cyanocobalamin (vitamin B-12) 1,000 MCG tablet 1,000 mcg PO DAILY omeprazole 40 mg capsule,delayed release(DR/EC) 40 mg PO DAILY ascorbic acid (vitamin C) 1,000 mg tablet 1 g PO DAILY aspirin 81 MG tablet,chewable 81 mg PO DAILY acetaminophen 325 mg Tablet 650 mg PO Q6H PRN PRN (Reason: Pain 1-10 Or Fever>100.7) Qty: 0 0RF Discontinued gabapentin 400 MG capsule 800 mg PO TID simvastatin 10 MG tablet 10 mg PO QHS metformin 1,000 MG tablet 1,000 mg PO BID gabapentin 100 MG capsule 100 mg PO TID oxybutynin chloride 10 mg tablet extended release 24hr 10 mg PO DAILY clopidogrel 75 mg Tablet 75 mg PO DAILY Qty: 0 0RF No Action (DME) walker 1 EACH misc 1 ea miscellaneous DAILY Referrals / Follow Up: [facility] [Provider Group] - 07/22/23 3:00 pm (DR DEL RIO [address] [place], [place]) Zi Cash MD [Non-Staff] - (dysphagia and Hx of Esophageal Dilation) Afsaneh Childress, CABLE TELEVISION PROGRAM DIRECTOR-C [Non-Staff] - 05/10/23 11:00 am (WILL BE SEEING DR WHITAKER'S NURSE PRACTIONER ) Disposition Disposition (needs filled in before D/C Order can be placed): Home Health Service
--- NOTE | 2023-05-02 15:25 | DS.PCM_ITS ---
Providers Date of Admission: 04/16/23 Date of Discharge: 05/03/23 Primary Care Physician: Dr. Yosef Whitaker MD Reason For Visit: STROKE Diagnosis Discharge Diagnosis (1) Debility: Status: Acute Code(s): R53.81 - Other malaise (2) Ischemic cerebrovascular accident (CVA): Status: Acute Code(s): I63.9 - Cerebral infarction, unspecified (3) Cognitive dysfunction: Status: Chronic Code(s): F09 - Unspecified mental disorder due to known physiological condition Plan: Acute on chronic more likely than not secondary to delirium related to acute CVA but also to untreated depression. Has made significant improvement with speech therapy while on acute rehab. (4) Acute left-sided muscle weakness: Status: Acute Code(s): M62.81 - Muscle weakness (generalized) (5) Chronic renal failure, stage 3a: Status: Chronic Code(s): N18.31 - Chronic kidney disease, stage 3a (6) Normochromic normocytic anemia: Status: Chronic Code(s): D64.9 - Anemia, unspecified Plan: B12 and TSH normal. Etiology of anemia unclear and can be further evaluated as an OP by his PCP.. Unlikely that this is related to moderate CRF. Hemoccult stool was negative. 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): Status: Chronic Code(s): E78.6 - Lipoprotein deficiency (12) Depression: Status: Acute Code(s): F32.A - Depression, unspecified Qualifiers: Depression Type: reactive depression Qualified Code(s): F32.9 - Major depressive disorder, single episode, unspecified (13) Diabetes mellitus type 2 in obese: Status: Acute Code(s): E11.69 - Type 2 diabetes mellitus with other specified complication; E66.9 - Obesity, unspecified (14) Neuropathy: Status: Acute Code(s): G62.9 - Polyneuropathy, unspecified Plan: He was taking 1,000 mg of Gabapentin TID at admission to rehab which exceeds the maximum recommended daily dose for a elderly pt with Stage 3b CRF. the dose was gradually tapered to 600 mg TID while on rehab and he is stable at this dose with no recurrence of radicular/neuropathic pain in the LE's. Gait is more stable, he is less confused and he is no longer dizzy . We checked a Gabapentin level while in the hospital AFTER we started to taper the dose and it was still high. (15) Hypertension: Status: Chronic Code(s): I10 - Essential (primary) hypertension Qualifiers: Hypertension type: primary hypertension Qualified Code(s): I10 - Essential (primary) hypertension (16) Urinary incontinence: Status: Chronic Code(s): R32 - Unspecified urinary incontinence Qualifiers: Urinary Incontinence type: urge incontinence Qualified Code(s): N39.41 - Urge incontinence Plan: Urge incontinence - got worse with discontinuation of Detrol so it was restarted at 2 mg daily. Recommended a Primo Fit external catheter to be worn at night to cut down on bed linen changes. (17) Osteoarthritis: Status: Chronic Code(s): M19.90 - Unspecified osteoarthritis, unspecified site Qualifiers: Laterality: left Osteoarthritis location: ankle Osteoarthritis type: unspecified Qualified Code(s): M19.072 - Primary osteoarthritis, left ankle and foot Plan: Compounded arthritis cream containing Lidocaine, Voltaren gel and Baclofen has been very effective in controlling joint pain. (18) Presbycusis of both ears: Status: Chronic Code(s): H91.13 - Presbycusis, bilateral Plan: Has bilateral hearing aids. (19) Dysphagia: Status: Chronic Code(s): R13.10 - Dysphagia, unspecified Qualifiers: Dysphagia type: pharyngoesophageal phase Qualified Code(s): R13.14 - Dysphagia, pharyngoesophageal phase Plan: He has a history of esophageal stenosis and has had dilation of his esophagus in the past at [facility], can not recall the doctors last name. He is having increased problems recently, audrey with dry foods and likely has recurrent stenosis. Plan is for him to follow up with gastroenterology post DC from rehab . He is to eat soft, moist food with small bites and should follow a bite with a sip of liquid. (20) Esophageal stenosis: Status: Chronic Code(s): K22.2 - Esophageal obstruction (21) GERD (gastroesophageal reflux disease): Status: Chronic Code(s): K21.9 - Gastro-esophageal reflux disease without esophagitis Qualifiers: Esophagitis presence: without esophagitis Qualified Code(s): K21.9 - Gastro-esophageal reflux disease without esophagitis (22) Visual hallucinations: Status: Acute Code(s): R44.1 - Visual hallucinations (23) Dementia: Status: Suspected Code(s): F03.90 - Unspecified dementia, unspecified severity, without behavioral disturbance, psychotic disturbance, mood disturbance, and anxiety Qualifiers: Dementia behavioral or psychological symptom: with other behavioral disturbance Dementia type: unspecified type Plan: With visual hallucinations Plan 1. Dc home with [facility]. 2. Needs a FWW for ambulation and advised against using a rollator. 3. Plan using a primo fit external urinary catheter at night to prevent frequent bed linen changes due to incontinence. 4. Will need to follow-up with gastroenterology for an EGD and possible esophageal dilation for recurrent esophageal stenosis 5. Will follow-up with Dr. Rohan Del Rio, his neurologist, post DC and an appt was scheduled for July for him. 6. No driving. Medications at Discharge Home Medications losartan 50 mg tablet 50 mg PO DAILY BLOOD PRESSURE 09/14/17 cyanocobalamin (vitamin B-12) 1,000 mcg tablet 1,000 mcg PO DAILY SUPPLEMENT 07/21/18 ascorbic acid (vitamin C) 1,000 mg tablet 1 g PO DAILY SUPPLEMENT 04/10/23 aspirin 81 mg chewable tablet 81 mg PO DAILY HEART HEALTH 04/10/23 omeprazole 40 mg capsule,delayed release 40 mg PO DAILY ACID REFLUX 04/10/23 acetaminophen 325 mg tablet 650 mg (2 x 325 mg) PO Q6H PRN PRN Pain 1-10 Or Fever>100.7 #0 tabs 04/16/23 walker 12/27/23 atorvastatin 10 mg tablet 5 mg (1/2 x 10 mg) PO QHS #30 tabs 05/02/23 gabapentin 600 mg tablet 600 mg PO TID #90 tabs 05/02/23 metformin 1,000 mg tablet 500 mg (1/2 x 1,000 mg) PO BREAKFAST #90 tabs 05/02/23 sennosides 8.6 mg-docusate sodium 50 mg tablet (Stool Softener-Stimulant Laxative) 2 tab PO BID #120 tabs 05/02/23 sertraline 50 mg tablet 50 mg PO DAILY #30 tabs 05/02/23 tolterodine 2 mg capsule,extended release 24 hr 2 mg PO DAILY #30 caps 05/02/23 Hospital Course Operations None Procedures None Summary of Care Provided Minutes Spent on Discharge: 45 Hospital Course: ESSIE LOCK, is a 77 M with a PMH of diabetes mellitus type 2, GERD, hypertension, hyperlipidemia, diabetic neuropathy, overactive bladder, morbid obesity with a BMI of 35, osteoarthritis, suspected early dementia and obstructive sleep apnea who presented to the emergency department at [facility] on 04/10/2023 complaining of left-sided weakness that had started the preceding evening at approximately [address] brain revealed chronic involutional changes of the brain with no evidence of acute CVA. Teleneurology was consulted and recommended admission to the hospital for evaluation and additional testing. CTA of the head and neck was normal. MRI of the brain showed mild atrophy and moderate periventricular white matter ischemic changes. There were small foci of acute small vessel ischemic changes in the right parietal lobe. He was outside the window for tPA and CTA showed no large vessel occlusion so thrombectomy/vascular intervention was not indicated. After the results of the MRI were available he was loaded with clopidogrel and started on a daily dose. Neurology recommended dual antiplatelet agents for 21 days. He was started on aspirin 81 mg daily in addition to clopidogrel.. After 21 days clopidogrel was discontinued. Transthoracic echocardiogram showed mild concentric left ventricular hypertrophy with an estimated ejection fraction of 60%. Diastology was normal for age. There were no wall motion abnormalities. The right ventricle was normal in size with normal systolic function. There was no atrial enlargement and the bubble contrast study was negative for right to left intra-atrial shunt. The right ventricular systolic pressure was estimated to be 27 which is normal. There was no significant valvular heart disease. Significant lab at admission to the hospital was a decreased hemoglobin at 12 with an MCV of 94.9 and a mildly elevated RDW. Hemoccult stool was negative. Platelets were within normal limits. PT and PTT were normal. The electrolytes were unremarkable but the BUN was elevated at 36 with a creatinine of 1.43, up from 1.2 on 08/01/2022. Hemoglobin A1c was 5.8. Triglycerides were mildly increased at 217 and the LDL was 66 with an HDL of 34 which is low on simvastatin 10 mg p.o daily. While in the hospital he was seen and evaluated by PT/OT/ST and a recommendation for acute rehab at discharge from the hospital was made. He was transferred to the acute inpatient rehab unit at [facility] on 04/16/2023 for 3 hours of therapy daily to restore function/independence at or near his prior level. Blake was very slow to answer questions at admission and was having difficulty with word finding. He would frequently look at his Diana to provide him with words and answers to questions. He was incontinent of urine which he has been for a few years now. He was taking Oxybutynin 10 mg daily to help with urgency. A UA showed no evidence of infection and the post void residuals were not elevated. He continued to have urge incontinence despite the oxybutynin. Due to the recent stroke, chronic cognitive dysfunction, neuropathy with increased risk for falls and visual hallucinations I felt we should hold this anticholinergic medication to see if the mentation, drowsiness and gait st ability improved. He had also been taking Gabapentin 1,000 mg TID for neuropathic pain in the legs. The dose was gradually tapered and he had no recurrent neuropathic leg pain. At the time of DC he is taking 600 mg TID and mentation, LOC, word finding difficulties, gait instability and fluency of speech have all significantly improved. He is still having some memory trouble but, his cognitive Log 1 day prior to discharge showed correct answers to 26 of 30 questions, up from 18 of 30 questions at admission to the rehab unit. Blake will be going home at [place] and we requested he have / supervision, at least until he is able to follow up with Dr. Del Rio, his neurologist. Diana will check his pill boxes after Blake fills them and self checks his work. Urge incontinence got worse with discontinuation of the Oxybutynin and he was started on Detrol 2 mg daily prior to DC. Diana is looking into a Primo Fit external urinary catheter system to use only at night to keep Blake dry and to minimize bed linen changes at night when he is incontinent. Blake admitted to me at admission that he had been feeling depressed. He was tearful at admission and had been having trouble getting motivated to do things at home. He was started on Sertraline 25 mg daily and this was increased to 50 mg after 7-10 days. He is no longer tearful, he is very motivated to do therapy at home so that he can do even better. He is sleeping well at night and has a good appetite. He had some low blood sugars while on rehab and Metformin was decreased to 1,000 mg in the AM and 500 mg with supper.......blood sugars are under excellent control at [facility]. Blake has a hx of esophageal stenosis and he has had to have the esophagus dilated in the past. It has been quite some time since he had this last done. He has difficulty with swallowing dry, chunks of food and he was placed on a soft, moist diet with small bites. He is to alternate small bites with small sips when eating. A referral was completed for him to see Dr. Cash as an OP following DC. Blake made excellent progress on rehab. He never refused therapy and he is now very motivated to continue with therapy at home or as an OP and to establish a regular exercise program at least 5 days a week. He is much more alert than at admission to rehab and he is able to hold a conversation with me without struggling significantly with word finding. He has not been having visual hallucinations for several days prior to Dc from rehab. He is ambulating with a FWW with no LOB or gait deviations. He has ambulated up to 326 feet with a front wheel walker at contact-guard assist and no loss of balance but has decreased step height and length, left greater than right lower extremity. He is able to ascend/descend two 6 inch steps with 1 handrail and a straight cane at contact-guard assist/standby assist. He can do 2 sets of 2 steps each set. He is able to do 7 sit to stands using his upper extremities to push up with at light contact-guard assist at the time of discharge. He is independent with eating and contact-guard assist with grooming. He needs only minimal assistance with bathing and lower body dressing. He is contact-guard assist for tub/shower transfer and toilet transfer. Still requiring moderate assistance with to ileting. He is supervision/set up for upper body dressing. HCTZ was discontinued while on rehab because he has chronic poor fluid intake. BP's have remained well controlled with discontinuation of HCTZ. Creat is down to 1.18 with the discontinuation of hydrochlorothiazide and chronic encouragement to increase his fluid intake. It had been as high as 1.49 prior to discontinuation of diuretics. Mentation improves with good hydration and so does his performance in therapy. He will follow up with Dr. Del Rio, Dr. Cash and with Afsaneh Childress [employer] E[employer]IPMENT REPAIRER post DC. Active problems that require close follow up post discharge: Dysphagia with hx of esophageal stenosis requiring Dilation. Urinary incontinence with urgency - possibly due to neurogenic bladder from LS spine canal stenosis/radiculitis Cognitive dysfunction (likely multifactorial) with visual hallucinations and urinary incontinence. Physical Exam Const alert, oriented x3 and no apparent distress Constitutional Narrative: Confused at times but, able to carry on a conversation. General Appearance: cooperative, comfortable, well kempt and other He is pleasant and talkative. Very cooperative with therapy and motivated to get better. Orientation / Consciousness: confused Nutritional Appearance: obese HEENT normocephalic, head/scalp atraumatic and moist oral mucous membranes HEENT Narrative: Decreased hearing and he has BL hearing aids. Eyes PERRL, EOMs intact bilaterally, conjunctivae normal and no scleral icterus Eyes Narrative: No visual field cuts General Eye: normal appearance of both eyes Neck No nuchal rigidity, No nodes and no carotid bruits General: trachea midline Chest Chest Narrative: Symmetrical chest rise Resp normal respiratory effort, normal air movement and clear to auscultation bilaterally Resp Narrative: Diminished throughout, especially in the bases bilaterally. No conversational dyspnea and he is able to speak in complete sentences. Effort and Inspection: Negative for tachypneic or respiratory distress Auscultation: diminished lung sounds Cardio regular rate, regular rhythm, no murmurs, no rub and no gallops Cardio Narrative: No ectopy. Heart sounds are distant, more likely than not secondary to body habitus/possible COPD. He has gynecomastia bilaterally. GI normal to inspection, nondistended, normoactive bowel sounds, soft to palpation and non-tender GI Narrative: There is increased tympany with percussion however he denies any abdominal cramping or pain. No guarding with palpation Extremity no calf tenderness Extremity Narrative: He has no ankle edema today. He has no pain in the left ankle with active and passive ROM. No erythema and no increased warmth to touch. General Extremity: Negative for cyanosis or edema Skin no wounds, no jaundice and no mottling Skin Narrative: No rashes General Skin Exam: no breakdown Rashes: no rashes Neuro oriented x3 Neuro Narrative: Speech is fluent today and he is not having word finding difficulties. He has a very mild L facial droop........can not see as many teeth on the Left side when he smiles. Not very noticeable. The LUE and the LLE have a very mild dec rease in strength when compared to the left. He is ambulating without any LOB and he denies lightheadedness. No extinction, no visual field cuts. No ataxia. Coordination / Balance: [id number]-[id number] test normal and [id number] test normal Speech: speech normal Psych cooperative, denies homicidal ideation and denies suicidal ideation Psych Narrative: He is tolerating the sertraline with no adverse side effects. If he continues to tolerate 25 mg and he still feels depressed at the end of this week we will likely increase to more therapeutic dose of 50 mg daily. He is still sometimes seeing his mother sitting in his room. No auditory hallucinations. He is no longer tearful when I am talking with him. He makes good eye contact with me. Appearance: appropriate Attitude: calm, engaged and No agitated Mood & Affect: depressed Thought Content: No suicidality and No homicidality Weight / BMI Weight Weight: 217 lb 4.8 oz Body Mass Index (BMI) 34.0 ABG / Lab / Microbiology Data 04/29/23 05:29 04/28/23 07:52 Microbiology: Microbiology 04/23/23 16:00 Urine, Clean Catch Urine Culture - Final Gram negative trupti 04/18/23 08:54 Stool Stool Occult Blood (LUIS) - Final Indicators for Scoring Admitted with or Primary Diagnosis of CVA/Stroke: Yes Hx of CVA/Stroke: Yes Modified [place] Score MRS Score at time of Evaluation: 3-Moderate disability (Down from a 4 at admission to acute rehab.) NIHSS NIHSS 1a. Level of Consciousness: Alert; keenly responsive 1b. LOC Questions: Answers BOTH questions correctly. 1c. LOC Commands: Performs both tasks correctly. 2. Best Gaze: Normal 3. Visual: No visual loss 4. Facial Palsy: Minor paralysis (flattened nasolabial fold, asymmetry on smiling) 5a. Left Arm: No drift; arm holds 90 (or 45) degrees for full 10 seconds (When compared to the right upper extremity he has mild weakness. He is right- handed.) 5b. Right Arm: No drift; arm holds 90 (or 45) degrees for full 10 seconds 6a. Left Leg: No drift; leg holds 30-degree position for full 5 seconds (When compared to the right leg he has mild weakness.) 6b. Right Leg: No drift; leg holds 30-degree position for full 5 seconds 7. Limb Ataxia: Absent 8. Sensory: Normal; no sensory loss 9. Best Language: No aphasia; normal 10. Dysarthria: Normal 11. Extinction and Inattention: No abnormality Total: 1 Stroke Questions Stroke Team Activated: No D/C Instructions Discharge Diet: 1800 Calorie Control Diet, Carb Control Diet and - (SOFT, MOIST DIET WITH SMALL BITES. Avoid chunks of meat.) Weight Bearing Status: Full weight bearing Call your doctor if you observe: Fever of 101 or Higher, Inability to urinate, Inability to have a bowel movement, Shortness of breath, Dizziness, Fainting spells, Swelling in the ankles, Chest pain, Increased palpitations (irregular heartbeat), Calf discomfort, Uncontrolled pain and - (Burning pain in the legs or recurrence of restless legs. ) Pending Tests Upon Discharge: none Please Follow Up With: Afsaneh Childress NP-C When: 05/10/2023 at 11 AM....this is the [employer] E[employer]IPMENT REPAIRER working with Dr. Whitaker. you will also need to follow up with Dr. Del Rio for neurology and with Dr. Mccrary Friend for dysphagia with hx of esophageal stenosis requiring dilation. Meaningful Use Info Meaningful Use Diagnoses (Choose all that apply): Ischemic CVA CVA Therapy Assessed for PT,OT and/or ST?: Yes Ischemic Stroke Antithrombotic order at d/c?: Yes Dx of Atrial fib/flutter?: No Anticoagulant at discharge?: No Reason anticoagulant not ordered: Treatment not Indicated Statins at discharge?: Yes Primary Dx Acute Ischemic CVA?: Yes IV thrombolytic ordered during stay?: No Reason IV thrombolytic not ordered: Procedure not Indicated Discharge Plan Admission Admit Date/Time: 04/16/23 13:56 Primary Reason for Your Visit: Debility due to R parietal ischemic CVA. Attending Provider: Cora Potter Primary Care Provider: Yosef Whitaker Instructions Patient Instructions: Catheter-Linked Urinary Tract ..., Discharge Instructions for Stroke, Dysphagia Diet- Managing Foods Additional Instructions / Restrictions: 1. Do as many things for yourself as you can. I want you to set up your pill box while your is sitting next you to check your work. Read the paper daily and consider doing a Sudoku puzzle, crossword puzzle, anagram or other mental activity to stimulate your brain.......Use it or lose it. Playing games such as cards and board games with family members can also help stimulate the brain. 2. Make sure to get some exercise 5-6 days a week....this helps with the brain but, also helps with maintaining good joint health and mobility. Use the front wheeled walker when you are walking. 3. Only use the Primo fit when you are in bed sleeping to decrease night time urination and urinary incontinence. Wearing it all the time significantly increases the risk for urinary tract infection. The symptoms of a urinary tract infection include fever, burning with urination, increased frequency and urgency of urination, fatigue, confusion, nausea/vomiting and flank pain. Any of the symptoms can be associated with a urinary tract infection. If you experience these symptoms call your primary care doctor. 4. Your blood sugars are well controlled. We were able to decrease some of the diabetic medications since you are on a better diet. You have even lost some weight while on rehab. 5. We stopped the diuretic (called HCTZ or hydrochlorothiazide) because you do not drink enough fluids and it makes your kidney function worse. This medication was being used to treat high blood pressure and possibly to help control the swelling in the ankles. The swelling no is being controlled well with compression stockings. You BP is good with just 50 mg of Cozaar (also called Losartan once a day. the goal for your BP since you recently had a stroke is to keep it under 130/80. If your BP is above this your doctor may want to increase the dose of the Cozaar....this medication also helps to prevent kidney disease in diabetics. There are 5 stages of kidney disease and your are in stage 3 b which is moderate. We do not want this to get any worse so Cozaar is a good drug for you. 6. You are having some difficulty swallowing and I know you have had your esophagus stretched in the past and it has been a few years since you last had this procedure done. The disability counselor at the hospital here is Dr. Griffith and unfortunately he is not taking any new patients. We are going to try to get you an appt with Dr. Cash. He is local as well. Your foods should be soft and MOIST and you should take small bites. Sitting upright at 90 degrees while eating and remaining upright for 30 minutes afterward will help prevent choking and aspiration. You should avoid chunks of meat as these can easily get stuck in an esophagus that is narrowed. 7. You were quite depressed at admission to rehab and depression can cause trouble with memory. You were started on a antidepressant called Sertraline (also called Zoloft) and you have had no adverse reactions from this medication. You are no longer tearful, you are sleeping well at night and Your memory has improved. I would continue this medication for the next 6 months and IF at that time you are doing well and want to try getting off the Sertraline you should first cut the dose in half for a month - 6 weeks and if no recurrence of depressive symptoms cut in half again and re-evaluate in another 4-6 weeks. 8. It has been a pleasure getting to know you and Diana and you have made some very good progress while on rehab. If you send he has any questions after leaving acute rehab please do not hesitate to call me. OFFICE: [phone] CELL: [phone] Discharge Orders/Prescriptions Prescriptions: New tolterodine 2 mg Capsule,Extended Release 24hr 2 mg PO DAILY Qty: 30 0RF gabapentin 600 mg Tablet 600 mg PO TID Qty: 90 0RF atorvastatin 10 mg Tablet 5 mg PO QHS Qty: 30 0RF metformin 1,000 mg Tablet 500 mg PO BREAKFAST Qty: 90 0RF Rx Instructions: 2 tabs in the AM and 1 tab with supper. sennosides-docusate sodium [Stool Softener-Stimulant Laxat] 8.6-50 mg Tablet 2 tab PO BID Qty: 120 0RF sertraline 50 mg Tablet 50 mg PO DAILY Qty: 30 0RF Continued losartan 50 MG tablet 50 mg PO DAILY cyanocobalamin (vitamin B-12) 1,000 MCG tablet 1,000 mcg PO DAILY omeprazole 40 mg capsule,delayed release(DR/EC) 40 mg PO DAILY ascorbic acid (vitamin C) 1,000 mg tablet 1 g PO DAILY aspirin 81 MG tablet,chewable 81 mg PO DAILY acetaminophen 325 mg Tablet 650 mg PO Q6H PRN PRN (Reason: Pain 1-10 Or Fever>100.7) Qty: 0 0RF Discontinued gabapentin 400 MG capsule 800 mg PO TID simvastatin 10 MG tablet 10 mg PO QHS metformin 1,000 MG tablet 1,000 mg PO BID gabapentin 100 MG capsule 100 mg PO TID oxybutynin chloride 10 mg tablet extended release 24hr 10 mg PO DAILY clopidogrel 75 mg Tablet 75 mg PO DAILY Qty: 0 0RF No Action (DME) walker 1 EACH misc 1 ea miscellaneous DAILY Referrals / Follow Up: Rohan Del Rio [Other] - 05/13/23 9:30 pm (neurologist) Your, Urologist [Other] (Follow up with your urologist for urgency and they may have recommendations for Primofit options ) Zi Cash MD [Non-Staff] - (dysphagia and Hx of Esophageal Dilation Office will call you to set up an appointment ) Afsaneh Childress NP-C [Non-Staff] - 05/10/23 11:00 am (WILL BE SEEING DR WHITAKER'S NURSE PRACTIONER ) Disposition Disposition (needs filled in before D/C Order can be placed): Home Health Service Charges/Coding Visit Charges Inpatient E&M: 70694 Disch Hosp >30min
[2023-05-02] MEDS: metFORMIN HCl 500 MG Tablet PO (16:52)
[2023-05-02 19:22] VITALS: BP 132/74; PULSE 61; RESP 17; TEMP 36.5; O2SAT 96
[2023-05-02] MEDS: Atorvastatin Calcium 10 MG Tablet 5 MG PO (20:50)
[2023-05-02 20:54] VITALS: BMI 34.0
[2023-05-02 22:00] VITALS: PULSE 60; RESP 16; O2SAT 96
[2023-05-03] MEDS: Enoxaparin 40 MG/0.4 ML Syringe SC (05:15)
[2023-05-03] MEDS: Gabapentin 600 MG Tablet PO (05:18)
[2023-05-03] MEDS: Menthol/Lanolin/Calamine/Znox 113 GM Tube 1 APPLIC TOPICAL (05:18)
[2023-05-03 07:41] VITALS: BP 135/65; PULSE 63; RESP 15; TEMP 36.6; O2SAT 95
[2023-05-03] MEDS: Cyanocobalamin 500 MCG Tablet 1000 MCG PO (08:28)
[2023-05-03] MEDS: Aspirin 81 MG TAB.CHEW PO (08:28)
[2023-05-03] MEDS: Arthritis Pain Compound 60 CLICK TUBE TOPICAL (08:28)
[2023-05-03] MEDS: Losartan Potassium 50 MG Tablet PO (08:28)
[2023-05-03] MEDS: Tolterodine Tartrate 2 MG CAP.SA PO (08:28)
[2023-05-03] MEDS: Ascorbic Acid 500 MG Tablet 1000 MG PO (08:28)
[2023-05-03] MEDS: Pantoprazole Sodium 40 MG Tablet PO (08:28)
[2023-05-03] MEDS: metFORMIN HCl 1,000 MG Tablet 1000 MG PO (08:28)
[2023-05-03] MEDS: Sertraline 50 MG Tablet PO (08:28)
[2023-05-03 10:56] VITALS: BMI 34.0
[2023-05-03 10:57] VITALS: BP 135/65; PULSE 63; RESP 15; TEMP 36.6; O2SAT 95
--- NOTE | 2023-05-03 10:58 | NURSING ---
discharged home with family. discharge instructions, medications and appointments reviewed with pt and . denies questions or concerns
== END 2023-05-03 10:00 | disposition home health service (06) | DRG 57 ==
PROVIDERS: Admitting Provider Internal Medicine; PCP Family Medicine; Visit Provider Internal Medicine
DX: I69.354 Hemiplegia and hemiparesis following cerebral infarction affecting left non-dominant side (principal); K22.2 Esophageal obstruction; E11.22 Type 2 diabetes mellitus with diabetic chronic kidney disease; E11.42 Type 2 diabetes mellitus with diabetic polyneuropathy; E66.01 Morbid (severe) obesity due to excess calories; D64.9 Anemia, unspecified; N18.31 Chronic kidney disease, stage 3a; I12.9 Hypertensive chronic kidney disease with stage 1 through stage 4 chronic kidney disease, or unspecified chronic kidney disease; I69.328 Other speech and language deficits following cerebral infarction; K21.9 Gastro-esophageal reflux disease without esophagitis; E78.2 Mixed hyperlipidemia; G47.33 Obstructive sleep apnea (adult) (pediatric); M54.17 Radiculopathy, lumbosacral region; M48.07 Spinal stenosis, lumbosacral region; M19.072 Primary osteoarthritis, left ankle and foot; Z87.891 Personal history of nicotine dependence; Z79.82 Long term (current) use of aspirin; Z79.84 Long term (current) use of oral hypoglycemic drugs; Z68.35 Body mass index [BMI] 35.0-35.9, adult; Z79.899 Other long term (current) drug therapy; N31.9 Neuromuscular dysfunction of bladder, unspecified
CPT/HCPCS: 36415; 73600; 80048; 80053; 81001; 82274; 82607; 82962; 83735; 84100; 84443; 85025; 85027; 87086; 87088; 92523; 97110; 97112; 97116; 97129; 97130; 97162; 97166; 97530; 97535; 97802; J7030; A4216

== ENCOUNTER → 2023-05-27 | Outpatient (CLI) | payer MEDICARE, SELFPAY ==
--- OUTSIDE RECORDS SUMMARY | 2023-05-27 12:27 | XMS RPT_ITS | CCD ---
Author Name Unknown Address [address] [place] [address] Organization [facility] Care Team Providers Care Director Payer Name Role Phone Yosef Whitaker MD Primary Care Provider Yosef Whitaker MD Primary Care Provider Ernestina MOULTON, Mary Unavailable 1( [phone] Kim Alonzo MD Unavailable PROVIDER, UNKNOWN Referring [...] Primary Care Unavailable KARYNA, STEPHANIE Referring Unavailable RICHARD SCHMIDT Attending Unavailable JULIANNE, YOSEF A Primary Care Unavailable JULIANNE, YOSEF A Primary Care Unavailable JULIANNE, YOSEF A Attending Unavailable MARY DO Attending Unavailable JULIANNE, YOSEF A Primary Care Unavailable JULIANNE, YOSEF A Primary Care Unavailable KARYNA, STEPHANIE Referring Unavailable GOLIAS, MALCOLM Attending Unavailable LOLA ROMO Attending Unavailable LOLA ROMO Referring Unavailable JULIANNE, YOSEF A Primary Care Unavailable JULIANNE, YOSEF A Primary Care Unavailable JULIANNE, YOSEF A Referring Unavailable JULIANNE, YOSEF A Primary Care Unavailable RICHARD SCHMIDT Attending Unavailable JULIANNE, YOSEF A Primary Care Unavailable LOLA ROMO Referring Unavailable JULIANNE, YOSEF A Primary Care Unavailable NICOLE MATTHEW Attending Unavailable JULIANNE, YOSEF A Primary Care Unavailable KARYNA, STEPHANIE Referring Unavailable JULIANNE, YOSEF A Primary Care Unavailable KARYNA, STPEHANIE Referring Unavailable GOLIAS, MALCOLM Attending Unavailable JULIANNE, YOSEF A Primary Care Unavailable KARYNA, STEPHANIE Referring Unavailable GOLIAS, MALCOLM Attending Unavailable JULIANNE, YOSEF A Primary Care Unavailable KARYNA, STEPHANIE Referring Unavailable GOLIAS, MALCOLM Attending Unavailable JULIANNE, YOSEF A Primary Care Unavailable KARYNA, STEPHANIE Referring Unavailable GOLIAS, MALCOLM Attending Unavailable MARGOT BRAVO Referring Unavailable MARGOT BRAVO Attending Unavailable JULIANNE, YOSEF A Primary Care Unavailable LOLA ROMO Attending Unavailable JULIANNE, YOSEF A Primary Care Unavailable LOLA ROMO Referring Unavailable JULIANNE, YOSEF A Primary Care Unavailable JULIANNE, YOSEF A Primary Care Unavailable KARYNA, STEPHANIE Referring Unavailable JULIANNE, YOSEF A Primary Care Unavailable KARYNA, STEPHANIE Referring Unavailable GOLIAS, MALCOLM Attending Unavailable JULIANNE, YOSEF A Primary Care Unavailable KARYNA, STEPHANIE Referring Unavailable GOLIAS, MALCOLM Attending Unavailable JULIANNE, YOSEF A Primary Care Unavailable KARYNA, STEPHANIE Referring Unavailable GOLIAS, MALCOLM Attending Unavailable JULIANNE, YOSEF A Primary Care Unavailable KARYNA, STEPHANIE Referring Unavailable GOLIAS, MALCOLM Attending Unavailable LOLA ROMO Attending Unavailable JULIANNE, YOSEF A Primary Care Unavailable LOLA ROMO Referring Unavailable JULIANNE, YOSEF A Primary Care Unavailable LOLA ROMO Referring Unavailable JULIANNE, YOSEF A Primary Care Unavailable RICHARD SCHMIDT Attending Unavailable JULIANNE, YOSEF A Primary Care Unavailable JULIANNE, YOSEF A Primary Care Unavailable KARYNA, STEPHANIE Referring Unavailable JULIANNE, YOSEF A Primary Care Unavailable KARYNA, STEPHANIE Referring Unavailable MALCOLM LAND Attending Unavailable MARGOT BRAVO Attending Unavailable JULIANNE, YOSEF A Primary Care Unavailable JULIANNE, YOSEF A Primary Care Unavailable KARYNA, STEPHANIE Referring Unavailable JULIANNE, YOSEF A Primary Care Unavailable JULIANNE, YOSEF A Referring Unavailable JULIANNE, YOSEF A Attending Unavailable JULIANNE, YOSEF A Primary Care Unavailable RICHARD SCHMIDT Referring Unavailable MARGOT BRAVO Attending Unavailable JULIANNE, YOSEF A Primary Care Unavailable JULIANNE, YOSEF A Primary Care Unavailable JULIANNE, YOSEF A Referring Unavailable JULIANNE, YOSEF A Primary Care Unavailable JULIANNE, YOSEF A Attending Unavailable HAYLIE CUEVA Attending Unavailable JULIANNE, YOSEF A Primary Care Unavailable JULIANNE, YOSEF A Referring Unavailable JULIANNE, YOSEF A Primary Care Unavailable KARYNA, STEPHANIE Referring Unavailable MALCOLM LAND Attending Unavailable JULIANNE, YOSEF A Primary Care Unavailable KARYNA, STEPHANEI Referring Unavailable Allergies Allergy Classification Reported Allergen(s) Allergy Type Date of Onset Reaction(s) Facility (20 sources) Chlorhexidine; Translations: [CHLORHEXIDINE GLUCONATE (BULK)] Drug Allergy 7 Shortness of Breath [facility] Work Phone: (20 sources) Lisinopril; Translations: [LISINOPRIL] Drug Allergy 6 Cough [facility] Work Phone: (10 sources) Penicillins; Translations: [PENICILLINS] Propensity to adverse reactions to drug 6 Intolerance [facility] Work Phone: (20 sources) Penicillins Propensity to adverse reactions to drug 6 Intolerance [facility] Work Phone: Medications Current Medications Medication Drug [...] Active Problems Problem Classification Problem Date Documented Da te Episodic/Chronic Acute cerebrovascular disease (2 sources) Cerebrovascular accident; Translations: [Cerebral infarction, unspecified] Onset: 04-19-2023 04-19-2023 Chronic Chronic kidney disease (20 sources) Chronic kidney [...] Coronary arteriosclerosis; Translations: [Atherosclerotic heart disease of [place] coronary artery without angina pectoris] Onset: 06-27-2020 06-27-2020 Chronic Deficiency and other anemia (6 sources) Anemia of chronic disease; Translations: [Anemia [...] hemorrhoids; Translations: [Other hemorrhoids] 11-01-2013 Episodic Hepatitis (8 sources) Nonalcoholic steatohepatitis; Translations: [Nonalcoholic steatohepatitis (SOLER)] Onset: 09-28-2008 02-18-2023 Chronic Late effects of cerebrovascular disease (2 sources) 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; Translations: [Hemiplegia and hemiparesis following cerebral infarction affecting left non-dominant side] Onset: 05-24-2023 05-24-2023 Chronic Mood disorders (1 source) Major depressive disorder, single episode, unspecified; Translations: [Major depressive disorder with current active episode, unspecified depression episode severity, unspecified whether recurrent] Onset: 05-13-2023 Chronic Neoplasms of unspecified nature or uncertain behavior [...] of kidney and ureter, unspecified] Episodic Other gastrointestinal disorders (1 source) Constipation, unspecified; Translations: [Acute constipation] Onset: 05-13-2023 Episodic Other liver diseases (20 sources) Steatosis of liver; Translations: [Fatty (change of) liver, not elsewhere classified] Onset: 09-28-2008 04-06-2015 Chronic Other nervous system disorders (20 sources) Neuropathy; Translations: [Polyneuropathy, unspecified] Onset: 10-31-2013 04-17-2021 Chronic Other nervous system disorders (11 sources) Cervical myelopathy; Translations: [Disease of spinal cord, unspecified] Onset: 01-16-2023 01-16-2023 Chronic Other nervous system disorders (1 source) Disease of spinal cord, unspecified; Translations: [Cervical myelopathy (HCC)] Onset: 01-16-2023 Chronic Other nervous system disorders (1 source) Polyneuropathy, unspecified; Translations: [Neuropathy] Onset: 04-18-2021 Chronic Other nervous system disorders (1 source) Other symptoms and signs involving cognitive functions and awareness; Translations: [Other signs and symptoms involving cognition] Episodic Other nutritional; endocrine; and metabolic disorders (20 sources) Obese class II; Translations: [Obesity, unspecified] Onset: 04-06-2015 Chronic Other nutritional; endocrine; and metabolic disorders (6 sources) Hypomagnesemia; Translations: [Hypomagnesemia] Onset: 02-18-2023 02-18-2023 Chronic Other nutritional; endocrine; and metabolic disorders (1 source) Hypomagnesemia; Translations: [Hypomagnesemia] Onset: 02-18-2023 Chronic Residual codes; unclassified (20 sources) Obstructive sleep apnea syndrome; Translations: [Obstructive sleep apnea (adult) (pediatric)] Onset: 04-06-2015 04-17-2021 Chronic Residual codes; unclassified (1 source) Obstructive sleep apnea (adult) (pediatric); Translations: [Obstructive [...] Spondylosis; intervertebral disc disorders; other back problems (12 sources) Degeneration of lumbar intervertebral disc; Translations: [Other intervertebral disc degeneration, lumbar region] Onset: 01-16-2023 Chronic Unclassified (20 sources) Active living will ; Translations: [Living will on file] Onset: 01-01-2022 01-01-2022 Unclassified (1 source) Established Patient Onset: 08-27-2022 Past or Other Problems Problem Classification Problem Date Documented Date Episodic/Chronic Administrative/social admission (20 sources) Advance directive discussed with patient; Translations: [Other specified counseling] Onset: 01-01-2022 Episodic Conditions associated with dizziness or vertigo (20 sources) Lightheadedness; Translations: [Dizziness and giddiness] Onset: 10-04-2022 Episodic Immunizations and screening for infectious disease (2 sources) Vaccination needed; Translations: [Encounter for immunization] Onset: 02-18-2023 Episodic Malaise and fatigue (2 sources) Fatigue; Translations: [Other fatigue] Onset: 08-13-2022 Episodic Nutritional deficiencies (20 sources) Cobalamin deficiency; Translations: [Deficiency of other specified B group vitamins] Onset: 04-06-2015 04-06-2015 Episodic Other aftercare (20 sources) Patient encounter status; Translations: [Other alf (current) drug therapy] Onset: 12-08-2014 06-27-2020 Episodic Other aftercare (1 source) Other alf (current) drug therapy; Translations: [Medication management] Onset: [...] Onset: 01-01-2022 Episodic Other nervous system disorders (8 sources) Abnormal gait; Translations: [Unspecified abnormalities of gait and mobility] Onset: 02-13-2023 02-13-2023 Episodic Other non-traumatic joint disorders (20 sources) [...] specified postprocedural states; Translations: [S/P laminectomy] Onset: 04-06-2023 Episodic Residual codes; unclassified (1 source) Other specified personal risk factors, not elsewhere classified; Translations: [Quit using tobacco in remote past] Onset: 06-29-2022 Episodic Screening and history of mental health [...] Diastolic blood pressure 72 mm[Hg] Richard Schmidt APRN.WATER 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 Work Phone: [facility] 03-12-2023 12:53-0500 Systolic blood pressure 136 mm[Hg] Richard Schmidt APRN.WATER 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 Work Phone: [facility] 03-12-2023 12:42-0500 Body weight 102.06 kg Richard Schmidt APRN.WATER 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 Work Phone: [facility] 03-12-2023 12:42-0500 Heart rate 70 /min Richard Schmidt APRN.WATER 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 Work Phone: [facility] 03-12-2023 12:42-0500 Respiratory rate 16 /min Richard Schmidt APRN.WATER 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 Work Phone: [facility] 02-18-2023 16:22-0400 Diastolic blood pressure 79 mm[Hg] Yosef Whitaker MD Work Phone: [facility] 02-18-2023 16:22-0400 Heart rate 65 /min Yosef Whitaker MD Work Phone: [facility] 02-18-2023 16:22-0400 Systolic blood pressure 158 mm[Hg] Yosef Whitaker MD Work Phone: [facility] 02-18-2023 13:14-0400 Body height 168.9 cm Yosef Whitaker MD Work Phone: [facility] 02-18-2023 13:14-0400 Body weight 102.51 kg Yosef Whitaker MD Work Phone: [facility] 02-18-2023 13:14-0400 Respiratory rate 16 /min Yosef Whitaker MD Work Phone: [facility] 02-18-2023 13:14-0400 SaO2% (BldA) [Mass fraction] 96 % Yosef Whitaker MD Work Phone: [facility] 02-13-2023 11:16-0400 Body height 166.4 cm Stephanie Corona MD Work Phone: [facility] 02-13-2023 11:16-0400 Body weight 104.1 kg Stephanie Corona MD Work Phone: [facility] 02-13-2023 11:16-0400 Diastolic blood pressure 87 mm[Hg] Stephanie Corona MD Work Phone: [facility] 02-13-2023 11:16-0400 Heart rate 86 /min Stephanie Corona MD Work Phone: [facility] 02-13-2023 11:16-0400 Respiratory rate 16 /min Stephanie Corona MD Work Phone: [facility] 02-13-2023 11:16-0400 SaO2% (BldA) [Mass fraction] 98 % Stephanie Corona MD Work Phone: [facility] 02-13-2023 11:16-0400 Systolic blood pressure 151 mm[Hg] Stephanie Corona MD Work Phone: [facility] 02-01-2023 16:08-0400 Body height 166.4 cm Margot Bravo MD Work Phone: [facility] 02-01-2023 16:08-0400 Body weight 102.51 kg Margot Bravo MD Work Phone: [facility] 02-01-2023 16:08-0400 Diastolic blood pressure 80 mm[Hg] Margot Bravo MD Work Phone: [facility] 02-01-2023 16:08-0400 Heart rate 58 /min Margot Bravo MD Work Phone: [facility] 02-01-2023 16:08-0400 Systolic blood pressure 162 mm[Hg] Margot Bravo MD Work Phone: [facility] 10-19-2022 11:00-0400 Diastolic blood pressure 86 mm[Hg] Malcolm Golias PT Work Phone: [facility] 10-19-2022 11:00-0400 Systolic blood pressure 160 mm[Hg] Malcolm Golias PT Work Phone: [facility] 10-17-2022 11:45-0400 Body height 166.4 cm Stephanie Corona MD Work Phone: [facility] 10-17-2022 11:45-0400 Body weight 103 kg Stephanie Corona MD Work Phone: [facility] 10-17-2022 11:45-0400 Diastolic blood pressure 70 mm[Hg] Stephanie Corona MD Work Phone: [facility] 10-17-2022 11:45-0400 Heart rate 74 /min Stephanie Corona MD Work Phone: [facility] 10-17-2022 11:45-0400 SaO2% (BldA) [Mass fraction] 96 % Stephanie Corona MD Work Phone: [facility] 10-17-2022 11:45-0400 Systolic blood pressure 160 mm[Hg] Stephanie Corona MD Work Phone: [facility] 10-16-2022 13:32-0400 Body weight 102.97 kg Richard Schmidt APRN.WATER 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 Work Phone: [facility] 10-16-2022 13:32-0400 Diastolic blood pressure 82 mm[Hg] Richard Schmidt APRN.WATER 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 Work Phone: [facility] 10-16-2022 13:32-0400 Heart rate 73 /min Richard Schmidt RN PATIENT SERVICES.WATER 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 Work Phone: [facility] 10-16-2022 13:32-0400 Respiratory rate 16 /min Richard Schmidt RN PATIENT SERVICES.WATER 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 Work Phone: [facility] 10-16-2022 13:32-0400 Systolic blood pressure 140 mm[Hg] Richard Schmidt RN PATIENT SERVICES.WATER 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 Work Phone: [facility] 10-10-2022 10:40-0400 Body temperature 97.81 [degF] Lola Romo PA- C Work Phone: [facility] 10-10-2022 10:40-0400 Body weight 103.87 kg Lola Romo PA- C Work Phone: [facility] 10-10-2022 10:40-0400 Diastolic blood pressure 80 mm[Hg] Lola Romo PA-C Work Phone: [facility] 10-10-2022 10:40-0400 Heart rate 78 /min Lolaroxanne Romo PA- C Work Phone: [facility] 10-10-2022 10:40-0400 Respiratory rate 18 /min Lolaroxanne Romo PA- C Work Phone: [facility] 10-10-2022 10:40-0400 Systolic blood pressure 130 mm[Hg] Lola Romo PA-C Work Phone: [facility] 09-05-2022 10:37-0400 Body temperature 97.7 [degF] Lola Romo PA- C Work Phone: [facility] 09-05-2022 10:37-0400 Body weight 105.23 kg Lola Romo PA- C Work Phone: [facility] 09-05-2022 10:37-0400 Diastolic blood pressure 90 mm[Hg] Lola Romo PA-C Work Phone: [facility] 09-05-2022 10:37-0400 Heart rate 62 /min Lola Romo PA- C Work Phone: [facility] 09-05-2022 10:37-0400 Respiratory rate 18 /min Lola LAWRENCE- Ar Work Phone: [facility] 09-05-2022 10:37-0400 Systolic blood pressure 126 mm[Hg] Lola LAWRENCE-C Work Phone: [facility] 08-27-2022 11:23-0400 Body height 166.4 cm Stephanie Corona MD Work Phone: [facility] 08-27-2022 11:23-0400 Body weight 104.5 kg Stephanie Corona MD Work Phone: [facility] 08-27-2022 11:23-0400 Diastolic blood pressure 68 mm[Hg] Stephanie Corona MD Work Phone: [facility] 08-27-2022 11:23-0400 Heart rate 60 /min Stephanie Corona MD Work Phone: [facility] 08-27-2022 11:23-0400 Respiratory rate 16 /min Stephanie Corona MD Work Phone: [facility] 08-27-2022 11:23-0400 SaO2% (BldA) [Mass fraction] 97 % Stephanie Corona MD Work Phone: [facility] 08-27-2022 11:23-0400 Systolic blood pressure 145 mm[Hg] Stephanie Corona MD Work Phone: [facility] 08-15-2022 11:55-0400 Body temperature 97.9 [degF] Yosef Whitaker MD Work Phone: [facility] 08-15-2022 11:55-0400 Body weight 102.06 kg Yosef Whitaker MD Work Phone: [facility] 08-15-2022 11:55-0400 Diastolic blood pressure 70 mm[Hg] Yosef Whitaker MD Work Phone: [facility] 08-15-2022 11:55-0400 Heart rate 70 /min Yosef Whitaker MD Work Phone: [facility] 08-15-2022 11:55-0400 Respiratory rate 18 /min Yosef Whitaker MD Work Phone: [facility] 08-15-2022 11:55-0400 SaO2% (BldA) [Mass fraction] 97 % Yosef Whitaker MD Work Phone: [facility] 08-15-2022 11:55-0400 Systolic blood pressure 130 mm[Hg] Yosef Whitaker MD Work Phone: [facility] 08-13-2022 11:56-0400 Body temperature 98.2 [degF] Lola Romo PA- C Work Phone: [facility] 08-13-2022 11:56-0400 Body weight 101.61 kg Lola Romo PA- C Work Phone: [facility] 08-13-2022 11:56-0400 Diastolic blood pressure 62 mm[Hg] Lola Romo PA-C Work Phone: [facility] 08-13-2022 11:56-0400 Heart rate 68 /min Lola Romo PA- C Work Phone: [facility] 08-13-2022 11:56-0400 Respiratory rate 18 /min Lola Romo PA- C Work Phone: [facility] 08-13-2022 11:56-0400 Systolic blood pressure 126 mm[Hg] Lola Romo PA-C Work Phone: [facility] 07-26-2022 11:18-0400 Body height 167.6 cm Marisa Iglesias APRN.C PIPELINES SUPERVISOR Work Phone: [facility] 07-26-2022 11:18-0400 Body weight 107.96 kg Marisa Iglesias APRN.C PIPELINES SUPERVISOR Work Phone: [facility] 07-26-2022 11:18-0400 Diastolic blood pressure 70 mm[Hg] Marisa Isac RN PATIENT SERVICES.WATER 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 Work Phone: [facility] 07-26-2022 11:18-0400 Heart rate 92 /min Marisa Iglesias RN PATIENT SERVICES.C PIPELINES SUPERVISOR Work Phone: [facility] 07-26-2022 11:18-0400 SaO2% (BldA) [Mass fraction] 95 % Marisa Iglesias RN PATIENT SERVICES.WATER 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 Work Phone: [facility] 07-26-2022 11:18-0400 Systolic blood pressure 106 mm[Hg] Marisa Iglesias RN PATIENT SERVICES.WATER 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 Work Phone: [facility] 07-04-2022 11:22-0400 Body weight 106.59 kg Yosef Whitaker MD Work Phone: [facility] 07-04-2022 11:22-0400 Diastolic blood pressure 76 mm[Hg] Yosef Whitaker MD Work Phone: [facility] 07-04-2022 11:22-0400 Heart rate 70 /min Yosef Whitaker MD Work Phone: [facility] 07-04-2022 11:22-0400 Respiratory rate 16 /min Yosef Whitaker MD Work Phone: [facility] 07-04-2022 11:22-0400 Systolic blood pressure 132 mm[Hg] Yosef Whitaker MD Work Phone: [facility] 06-29-2022 13:57-0500 Body height 166.4 cm Kim Alonzo MD Work Phone: [facility] 06-29-2022 13:57-0500 Body weight 106.14 kg Kim Alonzo MD Work Phone: [facility] 06-29-2022 13:57-0500 Diastolic blood pressure 90 mm[Hg] Kim Alonzo MD Work Phone: [facility] 06-29-2022 13:57-0500 Heart rate 70 /min Kim Alonzo MD Work Phone: [facility] 06-29-2022 13:57-0500 Respiratory rate 18 /min Kim Alonzo MD Work Phone: [facility] 06-29-2022 13:57-0500 SaO2% (BldA) [Mass fraction] 97 % Kim Alonzo MD Work Phone: [facility] 06-29-2022 13:57-0500 Systolic blood pressure 130 mm[Hg] Kim Alonzo MD Work Phone: [facility] 06-28-2022 13:48-0500 Body height 166.4 cm Pst 1 [facility] 06-28-2022 13:48-0500 Body temperature 97.5 [degF] Pst 1 [facility] 06-28-2022 13:48-0500 Body weight 105.23 kg Pst 1 [facility] 06-28-2022 13:48-0500 Diastolic blood pressure 76 mm[Hg] Pst 1 [facility] 06-28-2022 13:48-0500 Heart rate 69 /min Pst 1 [facility] 06-28-2022 13:48-0500 Respiratory rate 16 /min Pst 1 [facility] 06-28-2022 13:48-0500 SaO2% (BldA) [Mass fraction] 96 % Pst 1 [facility] 06-28-2022 13:48-0500 Systolic blood pressure 123 mm[Hg] Pst 1 [facility] 06-11-2022 12:56-0500 Body height 166.4 cm Stephanie Corona MD Work Phone: [facility] 06-11-2022 12:56-0500 Body weight 104.33 kg Stephanie Corona MD Work Phone: [facility] 06-11-2022 12:56-0500 Diastolic blood pressure 76 mm[Hg] Stephanie Corona MD Work Phone: [facility] 06-11-2022 12:56-0500 Heart rate 75 /min Stephanie Corona MD Work Phone: [facility] 06-11-2022 12:56-0500 SaO2% (BldA) [Mass fraction] 94 % Stephanie Corona MD Work Phone: [facility] 06-11-2022 12:56-0500 Systolic blood pressure 126 mm[Hg] Stephanie Corona MD Work Phone: [facility] 03-28-2022 14:41-0500 Body height 166.4 cm Margot Bravo MD Work Phone: [facility] 03-28-2022 14:41-0500 Body weight 107.96 kg Margot Bravo MD Work Phone: [facility] 03-28-2022 14:41-0500 Diastolic blood pressure 78 mm[Hg] Margot Bravo MD Work Phone: [facility] 03-28-2022 14:41-0500 Heart rate 70 /min Margot Bravo MD Work Phone: [facility] 03-28-2022 14:41-0500 Systolic blood pressure 135 mm[Hg] Margot Bravo MD Work Phone: [facility] 01-01-2022 14:43-0400 Body height 166.4 cm Yosef Whitaker MD Work Phone: [facility] 01-01-2022 14:43-0400 Body weight 104.33 kg Yosef Whitaker MD Work Phone: [facility] 01-01-2022 14:43-0400 Diastolic blood pressure 74 mm[Hg] Yosef Whitaker MD Work Phone: [facility] 01-01-2022 14:43-0400 Heart rate 80 /min Yosef Whitaker MD Work Phone: [facility] 01-01-2022 14:43-0400 Respiratory rate 16 /min Yosef Whitaker MD Work Phone: [facility] 01-01-2022 14:43-0400 Systolic blood pressure 116 mm[Hg] Yosef Whitaker MD Work Phone: [facility] 10-19-2021 11:37-0400 Body height 168.9 cm Gilbert iWlson MD Work Phone: [facility] 10-19-2021 11:37-0400 Body weight 102.97 kg Gilbert Wilson MD Work Phone: [facility] 10-16-2021 10:08-0400 Body height 171.[address] [facility] 10-16-2021 10:08-0400 Body weight 104.[address] [facility] 10-06-2021 10:38-0400 Body weight 104.78 kg Yosef Whitaker MD Work Phone: [facility] 10-06-2021 10:38-0400 Diastolic blood pressure 70 mm[Hg] Yosef Whitaker MD Work Phone: [facility] 10-06-2021 10:38-0400 Heart rate 76 /min Yosef Whitaker MD Work Phone: [facility] 10-06-2021 10:38-0400 Respiratory rate 16 /min Yosef Whitaker MD Work Phone: [facility] 10-06-2021 10:38-0400 Systolic blood pressure 118 mm[Hg] Yosef Whitaker MD Work Phone: [facility] 08-28-2021 15:44-0400 Body weight 106.14 kg Yosef Whitaker MD Work Phone: [facility] 08-28-2021 15:44-0400 Diastolic blood pressure 68 mm[Hg] Yosef Whitaker MD Work Phone: [facility] 08-28-2021 15:44-0400 Heart rate 68 /min Yosef Whitaker MD Work Phone: [facility] 08-28-2021 15:44-0400 Respiratory rate 16 /min Yosef Whitaker MD Work Phone: [facility] 08-28-2021 15:44-0400 Systolic blood pressure 112 mm[Hg] Yosef Whitaker MD Work Phone: [facility] Encounters Encounter Date Encounter Type Care Provider Facility Start: 05-24-2023 Home visit Yosef honeycutt MD Work Phone: [facility] Procedures Date Procedure Procedure Detail Performing Clinician Start: 02-23-2023 INFLUENZA VACCINE, P RSV FREE, AGE 65+ YR, HIGH DOSE, QUADRIVALENT (FLUZONE HIGH-DOSE) Luis Vincent MD Work Phone: Start: 10-04-2022 Echocardiography CHIOMA WHITAKER Start: 06-28-2022 Antibody screen STEPHANIE Baxter CHARLIE Plan of Treatment Date Care Activity Detail Author Start: 05-13-2024 Annual PCP Team Medicaid Billing Specialist edy Disease Visit Annual PCP Team Chronic Disease Visit [facility] Start: 05-13-2024 BP Controlled (<130/80) BP Controlle d (<130/80) [facility] Start: 03-12-2024 Annual PCP Team Medicaid Billing Specialist edy Disease Visit Annual PCP Team Chronic Disease Visit [facility] Start: 02-19-2024 3 comp foot exam completed Diabetic Foot Exam [facility] Start: 02-19-2024 Annual PCP Team Medicaid Billing Specialist edy Disease Visit Annual PCP Team Chronic Disease Visit [facility] Start: 02-19-2024 Covid-19 Vaccine ( season) Covid-19 Vaccine ( season) [facility] Immunizations Immunization Date Immunization Notes Care Provider Ethan queen 02-23-2023 influenza (HD-IIV4) vaccine, age 65+ yr, high dose, quadrivalent, PF (FLUZONE HIGH-DOSE) Immunization [place] Work Phone: [facility] 02-23-2023 influenza virus vaccine, unspecified formulation Immunization [place] Work Phone: [facility] 02-10-2022 COVID-19 booster vaccine, age 12+ yr, bivalent (PFIZER-BIONTVivaRay) Immunization [place] Work Phone: [facility] Work Phone: 02-10-2022 influenza, high-dose , quadrivalent vaccine (FLUZONE HIGH DOSE QUADRIVALENT) Immunization [place] Work Phone: [facility] Work Phone: 02-10-2022 influenza virus vaccine, unspecified formulation Yosef Whitaker MD Work Phone: [facility] 01-01-2022 pneumococcal Conjuga te, unspecified formulation Yosef Whitaker MD Work Phone: [facility] Work Phone: 01-01-2022 pneumococcal (PCV20) vaccine, 20 valent (PREVNAR 20) Yosef Whitaker MD Work Phone: [facility] 02-16-2021 COVID-19 vaccine, ag e 12+ yr (PFIZER-BIONTECH - PURPLE TOP) Yosef Whitaker MD Work Phone: [facility] 02-11-2021 influenza, high-dose , quadrivalent vaccine (FLUZONE HIGH DOSE QUADRIVALENT) Yosef Whitaker MD Work Phone: [facility] Work Phone: 07-15-2020 COVID-19 vaccine, ag e 12+ yr (PFIZER-BIONTECH - PURPLE TOP) Yosef Whitaker MD Work Phone: [facility] Work Phone: 06-24-2020 COVID-19 vaccine, ag e 12+ yr (PFIZER-BIONTECH - PURPLE TOP) Yosef Whitaker MD Work Phone: [facility] Work Phone: 02-10-2020 influenza, high-dose , quadrivalent vaccine (FLUZONE HIGH DOSE QUADRIVALENT) Yosef Whitaker MD Work Phone: [facility] 01-27-2019 influenza, high dose seasonal, preservative-free Yosef Whitaker MD Work Phone: [facility] 07-07-2018 zoster vaccine recombinant Yosef Whitaker MD Work Phone: [facility] 05-01-2018 zoster vaccine recombinant Yosfe Whitaker MD Work Phone: [facility] 02-22-2018 influenza, high dose seasonal, preservative-free Yosef Whitaker MD Work Phone: [facility] 01-26-2017 influenza, high dose seasonal, preservative-free Yosef Whitaker MD Work Phone: [facility] Work Phone: 01-27-2016 influenza, high dose seasonal, preservative-free Yosef Whitaker MD Work Phone: [facility] Work Phone: 04-06-2015 pneumococcal polysaccharide vaccine, 23 valent Yosef Whitaker MD Work Phone: [facility] Work Phone: 03-05-2015 influenza, high dose seasonal, preservative-free Yosef Whitaker MD Work Phone: [facility] Work Phone: 02-20-2015 pneumococcal conjuga te vaccine, 13 valent Stephanie Corona MD Work Phone: [facility] 04-08-2014 pneumococcal conjuga te vaccine, 13 valent Yosef Whitaker MD Work Phone: [facility] Work Phone: 02-17-2014 influenza, seasonal, injectable Yosef Whitaker MD Work Phone: [facility] Work Phone: 03-07-2013 influenza virus vaccine, unspecified formulation Yosef Whitaker MD Work Phone: [facility] Work Phone: 02-09-2012 influenza virus vaccine, unspecified formulation Yosef Whitaker MD Work Phone: [facility] Work Phone: 01-24-2011 influenza virus vaccine, unspecified formulation Yosef Whitaker MD Work Phone: [facility] Work Phone: 01-24-2011 zoster vaccine, live Yosef Whitaker MD Work Phone: [facility] Work Phone: 02-16-2010 influenza virus vaccine, unspecified formulation Yosef Whitaker MD Work Phone: [facility] Work Phone: 02-04-2009 influenza virus vaccine, unspecified formulation Yoesf Whitaker MD Work Phone: [facility] 02-27-2008 influenza virus vaccine, unspecified formulation Yosef Whitaker MD Work Phone: [facility] Work Phone: 01-19-2008 pneumococcal polysaccharide vaccine, 23 valent Yosef Whitaker MD Work Phone: [facility] 02-17-2007 influenza virus vaccine, unspecified formulation Yosef Whitaker MD Work Phone: [facility] Work Phone: 02-12-2006 influenza virus vaccine, whole virus Yosef Whitaker MD Work Phone: [facility] Work Phone: 04-06-2005 tetanus toxoid, redu maryse diphtheria toxoid, and acellular pertussis vaccine, adsorbed Yosef Whitaker MD Work Phone: [facility] Work Phone: 03-27-2005 influenza virus vaccine, whole virus Yosef Whitaker MD Work Phone: [facility] Work Phone: 04-22-1996 diphtheria and tetan us toxoids, adsorbed for pediatric use Yosef Whitaker MD Work Phone: [facility] Work Phone: Payers Date Payer Category Payer Medicare [id number] 2021 Medicare AETNA MEDICARE A ETNA MEDICARE PPO [id number] 2021-Present [phone] [address] [place] [address] PPO [id number] 2021 Medicare [id number] 2013 Medicare AETNA MEDICARE A ETNA MEDICARE PPO [id number] 2013-2021 [address] [place] [address] [facility] [id number] Social History Date Type Detail Facility Start: 06-18-2017 End: 01-01-2022 Tobacco smoking status NHIS Ex-smoker [facility] Work Phone: End: 04-22-1989 History of tobacco use Current smoker [facility] End: 04-22-1989 History of tobacco use Cigarette Smoker [facility] Start: 08-28-2021 End: 05-13-2023 Alcohol intake Current drinker of alcohol (finding) [facility] Start: 08-28-2021 End: 07-03-2022 History SDOH Alcohol Frequency 2 [facility] Start: 08-28-2021 End: 07-03-2022 History SDOH Alcohol Std Drinks 1 [facility] Start: 08-28-2021 End: 07-03-2022 History SDOH Social Connections Taoism 3 [facility] Start: 08-28-2021 End: 07-03-2022 History SDOH Financial 5 [facility] Start: 1945 Sex Assigned At Not on file [facility] Start: 08-18-2021 End: 01-24-2022 Exposure to SARS-CoV-2 (event) Not sure [facility] Start: 06-18-2017 End: 08-27-2022 Cigarettes smoked current (pack per day) - Reported 1 [facility] Start: 06-18-2017 End: 01-01-2022 Tobacco use and exposure Smokeless tobacco non-user [facility] Start: 06-27-2022 End: 07-03-2022 History SDOH Physical Activity DPW 0 [facility] Start: 07-03-2022 End: 08-27-2022 Social connection and isolation panel [facility] Do you belong to any clubs or organizations such as catholic groups, unions, fraternal or athletic groups, or school groups? Yes [facility] Are you now , , , , never or living with a partner? [facility] How often to you hav e a drink containing alcohol? 2-4 times a month [facility] How many standard dr inks containing alcohol do you have on a typical day? 1 or 2 [facility] How often do you hav e 6 or more drinks on 1 occasion? Never [facility] How hard is it for y ou to pay for the very basics like food, housing, medical care, and heating Not hard at all [facility] Do you feel stress - tense, restless, nervous, or anxious, or unable to sleep at night because your mind is troubled all the time - these days [OSQ] To some extent [facility] (I/We) worried golden er (my/our) food would run out before (I/we) got money to buy more. Never true [facility] In the past 12 month s, was there a time when you were not able to pay the mortgage or rent on time? No [facility] How often to you hav e a drink containing alcohol? Monthly or less [facility] Do you feel stress - tense, restless, nervous, or anxious, or unable to sleep at night because your mind is troubled all the time - these days [OSQ] Not at all [facility] Clinical Notes 07-04-2005 to 05-24-2023 Yosef Whitaker MD - 05/24/2023 3:25 PM Richard Reyes APRN.EUGENIO - 03/12/2023 12:46 PM ESTTelephone Encounter - Noemi Xiao Ma - 02/19/2023 4:14 PM EDTPatient Instructions Note Date & Type Note Facility 05-24-2023 Note [facility] 05-24-2023 History of Present illness Narrative Patient's home health 485 form / care plan for certification period 05/06/2023 to 07/04/2023 reviewed and signed. Relevant medical records were reviewed. Changes were communicated to home health agency documented in this encounter [facility] 05-13-2023 Note [facility] 05-13-2023 Note [facility] 05-06-2023 Note [facility] 05-01-2023 Note HNO ID: [id number] Author: VINI CAIN LPN Service: ? Author Type: LICENSED NURSE Type: Progress Notes Filed: 05/01/2023 11:25 Note Text: Scan on 04/30/2023 7:18 PM by ProviderJuani PA-C: X-ray [facility] 04-18-2023 Note HNO ID: [id number] Author: Vini Cain LPN Service: ? Author Type: LICENSED NURSE Type: Progress Notes Filed: 04/19/2023 12:05 AM Note Text: Scan on 04/17/2023 6:22 PM by ProviderJuani PA-C [facility] 04-12-2023 Note HNO ID: [id number] Author: Vini Cain LPN Service: ? Author Type: LICENSED NURSE Type: Progress Notes Filed: 04/12/2023 12:34 PM Note Text: Scan on 04/11/2023 5:33 PM by ProviderJuani PA-C: Echo [facility] 04-11-2023 Note [facility] 03-12-2023 Note [facility] 03-12-2023 History of Present illness Narrative Chief [...] 01/16/2023 Coronary artery disease Diabetic eye exam (HCC) [...] obesity due to excess calories (HCC) 04/06/2015 SOLER (nonalcoholic steatohepatitis) 09/28/2008 CT showed [...] polyneuropathy, without long-term current use of insulin ([facility]) 12/12/2015 Urge incontinence 08/10/2015 VENTRICULAR TACHYCARDIA, PAROXYSMAL [...] 1-dose 60+ series) due on 02/19/2024 Covid-19 Vaccine(2022- season) due on 02/19/2024 HbA1C due on [...] weight loss. BMI 35.77 kg/(m^2) Richard Schmidt APRN.WATER 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 documented in this encounter [facility] 02-19-2023 Miscellaneous Notes Called and spoke with pt's , Stacey (per notes okay to give info). Notified her of results below verbalized understanding. Noemi Xiao Ma Let patient know repeat potassium was normal. documented in this encounter [facility] 02-18-2023 Nurse Note 158/79 Average 65 163/78 156/76 160/80 157/82 154/79 Patient was scheduled for 3 week PIPELINES SUPERVISOR follow up for HTN documented in this encounter [facility] 02-18-2023 Note [facility] 02-18-2023 Instructions Yosef Whitaker MD - 02/18/2023 1:39 PM EDT If you bare considering on getting the RSV vaccine you have to get it at a local pharmacy. Consider getting a Tdap for tetanus update from the health dept. Please get labs done on or after 12/08/2022 prior to your next visit. documented in this encounter [facility] 02-18-2023 History of Present illness Narrative Medicare [...] Procedure Laterality Date COLONOSCOP W/ OR W/O [facility] SPEC 11/07/2005 Colonoscopy recheck 10 yrs COLONOSCOP W/ OR W/O BRS SPEC 07/29/2017 Colonoscopy EGD W/O OR W/BRUSH/WASH [...] the time. List of current specialists seen: [facility], Optho Dr. Bravo (Neuro) End of [...] palpitations. Has some lower extremity swelling as day goes on with sitting more and [...] 04/06/2015 Influenza Vaccine(1) due on 12/21/2022 Covid-19 Vaccine(2022- season) due on 12/21/2022 Diabetic Foot Exam [...] 1.00 - 4.00 k/uL 2.42 1.91 1.56 [place]% % 8.8 8.4 7.0 Abs [place] <0.87 k/uL 0.83 0.64 0.60 [place]% % [...] Negative Ketones, Urine Negative Negative Negative Specific [place], Ur 1.005 - 1.030 1.026 1.021 Hemoglobin/Blood,Ur [...] which included preparing to see the patient, [id number] patient care, completing clinical documentation, performing a medically appropriate examination, counseling and educating the patient/family/caregiver and ordering medications, tests, or procedures. Patient was asked at end of visit if they had any questions or input regarding the plan of care we had discussed. Yosef Whitaker MD documented in this encounter [facility] 02-13-2023 Note HNO ID: [id number] Author: Stephanie Simpson I, MD Service: ? Author Type: Physician Type: Progress Notes Filed: 02/13/2023 11:34 AM Note Text: NEUROSURGERY FOLLOW UP OFFICE NOTE Chair, Clinical Neurosciences Director, Spinal Neurosurgery [facility] Date of visit: February 13, 2023 Patient Name: Mr.Donald Neema Espino Date of : 1945 Current Age: [age] year old Sex: male MRN/E# [id number] Last Office Visit: 01/16/2023 Chief Complaint: No [...] Use: occasional HPI: Patient was discharged from [facility] on 07/19/2022 to an acute rehab facility with prescription for Keflex x7 days. He presented for his routine 2 week post operative visit with Marisa Iglesias CNP on 07/26/2022 where he had been participating in therapy at rehab in [place]. He felt like he was gradually gaining [...] around incision site was noticed by his client account representative. No active drainage, fevers, or warmth around [...] 10/17, 10/19, 10/24, 7, 10/30, 11/08, 11/14, 11/21, 11/28, 12/05 Gabapentin PREVIOUS SURGERY: [place] back [place] [address] [place] in [place] PAIN EVALUATION No data found in the last 1 encounters. PAST MEDICAL HISTORY Diagnosis Date Advance directive discussed with patient 01/01/2022 Discussed 12/2021 Arthritis B12 deficiency 04/06/2015 Bilateral leg edema 06/28/2021 Coronary artery disease Diabetic eye exam (HCC) 11/01/2013 Last done:05/20/2018 Diverticulosis of large (more content not included)... [facility] 02-13-2023 History of Present illness Narrative NEUROSURGERY FOLLOW UP OFFICE NOTE Chair, Clinical Neurosciences Director, Spinal Neurosurgery [facility] Date of visit: February 13, 2023 Patient Name: Mr.Donald Neema Espino Date of : 1945 Current Age: [age] year old Sex: male MRN/E# [id number] Last Office Visit: 01/16/2023 Chief Complaint: No [...] Use: occasional HPI: Patient was discharged from [facility] on 07/19/2022 to an acute rehab facility with prescription for Keflex x7 days. He presented for his routine 2 week post operative visit with Marisa Iglesias CNP on 07/26/2022 where he had been participating in therapy at rehab in [place]. He felt like he was gradually gaining [...] around incision site was noticed by his client account representative. No active drainage, fevers, or warmth around [...] 09/07, 10/03, 10/09, 10/10, 10/12, 10/17, 10/19, 7/, 7/, 10/30, 11/08, 11/14, 8/, 11/28, 12/05 Gabapentin PREVIOUS SURGERY: [place] back [place] [address] [place] in [place] PAIN EVALUATION No data found in the [...] 11/01/2013 Morbid obesity due to excess calories ([facility]) 04/06/2015 Neuropathy 10/31/2013 Had low back surgery [...] lumbar region Stage 3a chronic kidney disease ([facility]) 02/01/2022 Type 2 diabetes mellitus with diabetic polyneuropathy, without long-term current use of insulin ([facility]) 12/12/2015 Urge incontinence 08/10/2015 VENTRICULAR TACHYCARDIA, PAROXYSMAL [...] 0.9% 10 mL injection (DEFINITY) INTRAVENOUS DIRECTED Lola Sousa PA-C sodium chloride 0.9 % (flush) 10 [...] MD Chair, Clinical Neurosciences Director, Spinal Neurosurgery [facility] This note was partially generated using H[employer]el[employer] voice recognition system, and there may be some incorrect words, spellings, and punctuation that were not noted in checking the note before saving. documented in this encounter [facility] 02-13-2023 Note HNO ID: [id number] Author: William Salazar RT(R) Service: Radiology Author [...] RT Yani(R) February 13, 2023 10:54 AM [facility] 02-08-2023 Miscellaneous Notes Lab orders placed. Meagan Valdovinos APRN.CNP Lab orders were cancelled Please file new ones. documented in this encounter [facility] 02-07-2023 Miscellaneous Notes The following approved medication [...] Last refill: 07/2022 documented in this encounter [facility] 02-05-2023 Note HNO ID: [id number] Author: Vini Cain LPN Service: ? Author Type: ? Type: Progress Notes Filed: 02/05/2023 11:01 AM Note Text: Scan on 02/05/2023 9:04 AM by ProviderJuani PA-C: Consultation - Ophthalmology [facility] 02-05-2023 History of Present illness Narrative Scan on 02/05/2023 9:04 AM by ProviderJuani PA-C: Consultation - Ophthalmology documented in this encounter [facility] 02-01-2023 Note [facility] 02-01-2023 Instructions Margot Bravo MD - 02/01/2023 4:41 PM EDT Try to stay physically active! Continue use of walker for safety. Repeat neuropsych testing with Dr. Zamarripa after 05/2023. documented in this encounter [facility] 02-01-2023 History of Present illness Narrative FOLLOW [...] memory impairment. 07/2022 now post-op L3-4 laminectomy, PIPELINES SUPERVISOR mild dysfunction, observe HPI Current Issues 1. [...] 0.9% 10 mL injection (DEFINITY) INTRAVENOUS DIRECTED Lola Sousa PA-C sodium chloride 0.9 % (flush) 10 [...] Status: He is alert. Reg 3/3 HCB, sat, , age 77, WORLD -> [place]LROW, naming normal, makes a couple errors with sentence repetition, DR 2/3 -> 0/1 -> 1/1. Cranial Nerves: Extraocular movements show full and [...] Discussed with Patient: n/a Margot Bravo MD [facility] Neurology documented in this encounter [facility] 01-16-2023 Note HNO ID: [id number] Author: Stephanie Simpson I, MD Service: ? Author Type: Physician Type: Progress Notes Filed: 01/16/2023 12:15 PM Note Text: NEUROSURGERY FOLLOW UP OFFICE NOTE Chair, Clinical Neurosciences Director, Spinal Neurosurgery [facility] Date of visit: January 16, 2023 Patient Name: Mr.Donald Neema Espino Date of : 1945 Current Age: [age] year old Sex: male MRN/E# [id number] Last Office Visit: 10/17/2022 Chief Complaint: Patient [...] Use: occasional HPI: Patient was discharged from [facility] on 07/19/2022 to an acute rehab facility with prescription for Keflex x7 days. He presented for his routine 2 week post operative visit with Marisa Iglesias CNP on 07/26/2022 where he had been participating in therapy at rehab in [place]. He felt like he was gradually gaining [...] around incision site was noticed by his client account representative. No active drainage, fevers, or warmth around incision. He presents for follow up an plan of care. Symptoms: subjective weakness BLE PREVIOUS CONSERVATIVE TREATMENTS: PT/OT: 08/29/2022, 09/05, 09/07, 10/03, 10/09, 10/10, 10/12, 10/17, 10/19, 10/24, 7, 10/30, 11/08, 11/14, 8/, 8, 12/05 Gabapentin PREVIOUS SURGERY: [place] back [place] [address] [place] in [place] PAIN EVALUATION No data found in the [...] 12/18/2017 Medicare Par (more content not included)... [facility] 12-05-2022 Note [facility] 12-05-2022 History of Present illness Narrative Episode [...] CARE PLAN OF CARE UPDATE: Assessment: Essie Espino is discontinued from Physical Therapy services due to maximal benefit. and Patient/Clinician mutual decision to discontinue current plan of care.. Patient was seen for 15 visits from Start of Care Date: 10/19/22 to 12/05/2022 and treatment included: Therapeutic exercise, Neuromuscular re-education, Therapeutic activities, Self-snf management, Gait training, Patient/Family/Caregiver Education, and General [...] reflect decreased fall risk. - Partially MET [place] in home exercise program including cardiovascular exercise. [...] Information : Location 2 Pain Level 2: (1-/10) Pain Location 2: Low Back/Lumbar Spine- Midline [...] Malcolm Land PT documented in this encounter [facility] 11-28-2022 Note [facility] 11-28-2022 History of Present illness Narrative Episode [...] part of his lawn today with riding fountain waitress/waiter. He uses standard yard tractor and his [...] Time : 1645 Session Stop Time : 1735 Malcolm Land PT documented in this encounter [facility] 11-21-2022 Note [facility] 11-21-2022 History of Present illness Narrative Episode [...] Minutes (timed/untimed): 45 Session Start Time : 5 Session Stop Time : 1740 Malcolm Land PT documented in this encounter [facility] 11-15-2022 Note [facility] 11-15-2022 Note HNO ID: [id number] Author: Milka Stone RN Service: ? Author Type: ? Type: Progress Notes Filed: 11/15/2022 1:47 PM Note Text: Patient presents with: Left Foot - Established Patient, Diabetic Foot Care Right Foot - Established Patient, Diabetic Foot Care [facility] 11-15-2022 Miscellaneous Notes Request is being addressed in another encounter. Vini Cain LPN documented in this encounter [facility] 11-15-2022 Miscellaneous Notes [facility] 10/16/22 NOV 02/15/23 Vini Cain LPN documented in this encounter [facility] 11-14-2022 Note [facility] 11-14-2022 History of Present illness Narrative Episode [...] Malcolm Land PT documented in this encounter [facility] 11-09-2022 Note [facility] 10-30-2022 Note [facility] 10-30-2022 History of Present illness Narrative Episode [...] FERNY Green PT documented in this encounter [facility] 10-29-2022 Miscellaneous Notes The following approved medication [...] Madelin Swain LPN documented in this encounter [facility] 10-26-2022 Note [facility] 10-26-2022 History of Present illness Narrative Episode [...] 50 Total Treatment Time Minutes (timed/untimed): 50 FERNY Green PT documented in this encounter [facility] 10-24-2022 Note [facility] 10-24-2022 History of Present illness Narrative Episode [...] LEVEL OF FUNCTION: TREATMENT: Therapeutic Exercise: 1: Chloe + [employer] Step[employer] seat #12 x6 minutes (Discussed importance [...] was facilitated with verbal and visual cuing. Self-Jail Management: 1: Education given to pt and [...] Treatment Time Minutes (timed/untimed): 45 Betzaida Hoskins, GOURMET COFFEE ATTENDANT Malcolm Land PT documented in this encounter [facility] 10-20-2022 Note [facility] 10-19-2022 Miscellaneous Notes Addended by: MALCOLM LAND on: 10/19/2022 11:41 PM Modules accepted: Orders documented in this encounter [facility] 10-19-2022 History of Present illness Narrative Episode [...] Planned: 8 Planned Treatment Interventions: Therapeutic exercise (06168), Neuromuscular re-education (82732), Manual therapy (86965), Therapeutic activities (81515), Self-snf management (38930), Gait Training (68601), Patient/Family/Caregiver Education, Body Mechanics Training, General Conditioning [...] Education TREATMENT: PT Treatment Interventions: Therapeutic Exercise, Self-Jail Management Evaluation Therapeutic Exercise: 1: Pt and [...] and tactile cuing. Patient education as noted. Self-Jail Management: 1: Pt and his had manuy [...] Malcolm Land PT documented in this encounter [facility] 10-18-2022 Miscellaneous Notes Patient's Stacey returned call and given provider's message below. Stacey asks that Ortho consult information be sent to Dr. Hines's office. Faxed as requested to [phone]. Marie Bacon RN Left message for patient to return call to office Mary Yusuf Cma Please let patient know his xrays show degeneration to his lower back and right knee. I have placed a consult to orthopedics and faxed it to Dr. Hines's office. documented in this encounter [facility] 10-17-2022 Note [facility] 10-17-2022 History of Present illness Narrative Episode Visit Count: 8 Therapist That Will Accept/Oversee The Plan Of Care: Nicole Matthew Start of Care Date: 10/09/22 Onset Date: 07/12/22 ( I noticed dizziness when I woke up at [facility] after my surgery. ) Plan of Care [...] Total Treatment Time Minutes (timed/untimed): 40 FERNY Green PT documented in this encounter [facility] 10-17-2022 Note HNO ID: [id number] Author: Stephanie Simpson I, MD Service: ? Author Type: Physician Type: Progress Notes Filed: 10/17/2022 12:13 PM Note Text: NEUROSURGERY POST-OP NOTE Stephanie Simpson MD Chair, Clinical Neurosciences Director, Spinal Neurosurgery [facility] Date of visit: October 17, 2022 Patient Name: Mr.Donald Neema Espino Date of : 1945 Current Age: [age] year old Sex: male MRN/E# [id number] Last Office Visit: 08/27/2022 SURGERY: L3-4 laminectomy [...] Use: occasional HPI: Patient was discharged from [facility] on 07/19/2022 to an acute rehab facility with prescription for Keflex x7 days. He presented for his routine 2 week post operative visit with Marisa Iglesias CNP on 07/26/2022 where he had been participating in therapy at rehab in [place]. He felt like he was gradually gaining [...] and visual disturbanc (more content not included)... [facility] 10-17-2022 History of Present illness Narrative Images from the original note were not included. NEUROSURGERY POST-OP NOTE Stephanie Simpson MD Chair, Clinical Neurosciences Director, Spinal Neurosurgery [facility] Date of visit: October 17, 2022 Patient Name: Mr.Donald Neema Espino Date of : 1945 Current Age: [age] year old Sex: male MRN/E# [id number] Last Office Visit: 08/27/2022 SURGERY: L3-4 laminectomy [...] Use: occasional HPI: Patient was discharged from [facility] on 07/19/2022 to an acute rehab facility with prescription for Keflex x7 days. He presented for his routine 2 week post operative visit with Marisa Iglesias CNP on 07/26/2022 where he had been participating in therapy at rehab in [place]. He felt like he was gradually gaining [...] MD Chair, Clinical Neurosciences Director, Spinal Neurosurgery [facility] This note was partially generated using Hospicelink voice recognition system, and there may be some incorrect words, spellings, and punctuation that were not noted in checking the note before saving. documented in this encounter [facility] 10-16-2022 Note [facility] 10-16-2022 Note [facility] 10-16-2022 Instructions Richard Schmidt APRN.CNP - 10/16/2022 1:37 PM EDT Complete xrays Schedule with PT documented in this encounter [facility] 10-16-2022 History of Present illness Narrative Chief [...] - CONSULT TO PHYSICAL THERAPY Richard Schmidt APRN.WATER 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 documented in this encounter [facility] 10-12-2022 Note [facility] 10-12-2022 History of Present illness Narrative Episode Visit Count: 7 Therapist That Will Accept/Oversee The Plan Of Care: Nicole Matthew Start of Care Date: 10/09/22 Onset Date: 07/12/22 ( I noticed dizziness when I woke up at [facility] after my surgery. ) Plan of Care [...] Malcolm Land PT documented in this encounter [facility] 10-10-2022 Note [facility] 10-10-2022 Note [facility] 10-10-2022 History of Present illness Narrative Chief [...] lumbar region Stage 3a chronic kidney disease ([facility]) 02/01/2022 Type 2 diabetes mellitus with diabetic polyneuropathy, without long-term current use of insulin ([facility]) 12/12/2015 Urge incontinence 08/10/2015 VENTRICULAR TACHYCARDIA, PAROXYSMAL [...] Lola Romo PA-C documented in this encounter [facility] 10-09-2022 Note [facility] 10-09-2022 History of Present illness Narrative Episode Visit Count: 1 Therapist That Will Accept/Oversee The Plan Of Care: Nicole Matthew Start of Care Date: 10/09/22 Onset Date: 07/12/22 ( I noticed dizziness when I woke up at [facility] after my surgery. ) Plan of Care [...] Planned: 6 Planned Treatment Interventions: Therapeutic exercise (90507), Neuromuscular re-education (32821), Manual therapy (34412), Therapeutic activities (85887), Self-snf management (85149), Gait Training (46415), Patient/Family/Caregiver Education, Canalith Repositioning Maneuvers (68639) PLAN FOR NEXT VISIT: assesss symptom response [...] he woke (supine > sitting EOB) at [facility] following a recent spine surgery 07/12/22. This also comes on with sit > stand transfers. Pt. describes symptoms as sudden room spinning lasting just a couple seconds. Resolves with being still or moving slowly. Pt. currenlty being seen by PT for addressing balance, [...] Spontaneous Nystagmus: No nystagmus Positional Testing Right Glenny-Hallpike: Right Torsional / Clockwise, Upbeat, Symptomatic, Less [...] States/Identifies, Return Demonstration TREATMENT: PT Treatment Interventions: Self-Jail Management, Canalith Repositioning Evaluation Self-Jail Management: Skilled Intervention: Skilled judgment in the [...] Nicole Matthew PT documented in this encounter [facility] 10-05-2022 Note [facility] 10-05-2022 Miscellaneous Notes Spoke with patient's and [...] function was normal. documented in this encounter [facility] 06-16-2023 History of Present illness Narrative Episode Visit [...] without verbal cueing. TREATMENT: Therapeutic Exercise: 1: [employer] StepOne seat #12 x6 minutes (subjective collected [...] 23 Total Treatment Time Minutes (timed/untimed): 40 FERNY Green PT documented in this encounter [facility] 10-03-2022 Note [facility] 09-20-2022 Note [facility] 09-20-2022 History of Present illness Narrative Essie Espino is identified through a medication adherence outreach initiative based on pharmacy claims data from [facility] (insurer) for Non-insulin DM medication(s). Patient is [...] Francis Holman RPh documented in this encounter [facility] 09-07-2022 Note [facility] 09-05-2022 Note [facility] 09-05-2022 Note [facility] 09-05-2022 History of Present illness Narrative Chief [...] 11/01/2013 Morbid obesity due to excess calories ([facility]) 04/06/2015 Neuropathy 10/31/2013 Had low back surgery [...] Lola Romo PA-C documented in this encounter [facility] 08-29-2022 Note [facility] 08-27-2022 Note HNO ID: [id number] Author: Stephanie Simpson I, MD Service: ? Author Type: Physician Type: Progress Notes Filed: 08/27/2022 12:31 PM Note Text: NEUROSURGERY POST-OP NOTE Stephanie Simpson MD Chair, Clinical Neurosciences Director, Spinal Neurosurgery [facility] Date of visit: August 27, 2022 Patient Name: Mr.Donald Neema Espino Date of : 1945 Current Age: [age] year old Sex: male MRN/E# [id number] Last Office Visit: 07/26/2022 SURGERY: L3-4 laminectomy [...] Use: occasional HPI: Patient was discharged from [facility] on 07/19/2022 to an acute rehab facility with prescription for Keflex x7 days. He presented for his routine 2 week post operative visit with Marisa Iglesias CNP on 07/26/2022 where he had been participating in therapy at rehab in [place]. He felt like he was gradually gaining [...] trouble swallowing. Eyes: (more content not included)... [facility] 08-27-2022 History of Present illness Narrative NEUROSURGERY POST-OP NOTE Stephanie Simpson MD Chair, Clinical Neurosciences Director, Spinal Neurosurgery [facility] Date of visit: August 27, 2022 Patient Name: Mr.Donald Neema Espino Date of : 1945 Current Age: [age] year old Sex: male MRN/E# [id number] Last Office Visit: 07/26/2022 SURGERY: L3-4 laminectomy [...] Use: occasional HPI: Patient was discharged from [facility] on 07/19/2022 to an acute rehab facility with prescription for Keflex x7 days. He presented for his routine 2 week post operative visit with Marisa Iglesias CNP on 07/26/2022 where he had been participating in therapy at rehab in [place]. He felt like he was gradually gaining [...] MD Chair, Clinical Neurosciences Director, Spinal Neurosurgery [facility] This note was partially generated using Hospicelink voice recognition system, and there may be some incorrect words, spellings, and punctuation that were not noted in checking the note before saving. documented in this encounter [facility] 08-16-2022 Note [facility] 08-16-2022 History of Present illness Narrative Images from the original note were not included. [facility] Disorders [facility] Virtual Visit Follow up/ Established patient visit Date of last visit : 05/17/2022 IMPRESSION/PLAN: G47.33 Obstructive sleep apnea syndrome (primary encounter diagnosis) Essie Espino is a 76 year old male who presents to sleep medicine today in need of a replacement machine. His current machine is greater than 5 years old and is now broken. Patient has been established with [employer] in [place] and been obtaining monthly supplies. Will set him up with AutoPAP to forgo need to return to lab for PAP titration. - Will start Auto CPAP 7-20 cmH2O with a Nasal mask. - I will have a prescription sent to a [employer] company - [employer] who will be calling you in the next 1-2 weeks or so. Please call them directly or us if you do not hear from them in this time frame. - You should be eligible for new supplies approximately every 3-6 months, depending on your insurance coverage. - If your mask doesn't fit well, call the [employer] company before 30 days are up to get a new mask without an additional charge. - Insurance requires regular usage and periodic office follow ups for PAP therapy, to continue to cover supplies. INSURANCE REQUIREMENTS: - Your insurance requires a dwby-xg-nhyr follow up visit within a 31-90 day [...] up in 3 month(s). Mary Do APRN.EUGENIO This visit was conducted as a virtual visit, with patient's permission, via zoom. It required patient-provider interaction for the medical decision making as documented below. Patient stated name and Patient location Patient home in [place] I have communicated my name and active licensure. The patient's identity and physical location were verified at the time of this visit. Either the patient or their legal sales representative sales manager has been informed of the risks and [...] Most Recent Apnea-Hypopnea Index (AHI): scanned into [facility] Treatment : PAP therapy DME: [employer] PAP History: Current PAP settin-20 cm H2O. Difficulties with AutoPAP: None Reviewed objective PAP compliance data: scanned into epic Mask issues: None Uses chin strap: No [...] depending on your insurance coverage. Contact your [employer] (DME) company for new supplies as needed. - Follow up in 6-12 months Mary Do APRN.EUGENIO I spent a total of 25 minutes on the date of the service which included preparing to see the patient, qzau-po-eznu patient care, completing clinical documentation, obtaining and/or reviewing separately obtained history, counseling and educating the patient/family/caregiver, and communicating results to the patient/family/caregiver. documented in this encounter [facility] 08-16-2022 Miscellaneous Notes Images from the original note were not included. documented in this encounter [facility] 08-15-2022 Note [facility] 08-15-2022 Instructions Yosef Whitaker MD - 08/15/2022 12:56 PM EDT Please bring in copies of your power of trial attorney for health care and living will. Stop the hydrochlorothiazide. Please get labs and urine test done on or after 02/01/2023 prior to your next visit. documented in this encounter [facility] 08-15-2022 History of Present illness Narrative Chief [...] to heal. Office visit - D/C from [facility] 08/13/2022 Patient had surgery, laminectomy, on 07/12. He was discharge to [facility] where he received Physical Therapy per [...] Lymph 1.00 - 4.00 k/uL 2.42 1.91 [place]% % 8.8 8.4 Abs [place] <0.87 k/uL 0.83 0.64 [place]% % 7.5 [...] Negative Negative Ketones, Urine Negative Negative Specific [place], Ur 1.005 - 1.030 1.026 Hemoglobin/Blood,Ur Negative [...] Yosef Whitaker MD documented in this encounter [facility] 08-13-2022 Note [facility] 08-13-2022 History of Present illness Narrative Chief Complaint Patient presents with: Hospital F/U: Was discharged from [facility] Was admitted after back surgery HPI Essie Espino is a 77 year old male who presents here today for above concerns.. Patient had surgery, laminectomy, on 07/12. He was discharge to [facility] where he received Physical Therapy per [...] lumbar region Stage 3a chronic kidney disease ([facility]) 02/01/2022 Type 2 diabetes mellitus with diabetic polyneuropathy, without long-term current use of insulin ([facility]) 12/12/2015 Urge incontinence 08/10/2015 VENTRICULAR TACHYCARDIA, PAROXYSMAL [...] Lola Romo PA-C documented in this encounter [facility] 08-03-2022 Miscellaneous Notes Patient has been identified [...] of last office visit in primary care: [facility] 07/04/2022 Appointment scheduled 08/13/22 Last 2 Encounter Wt Readings: Date: Wt: 07/27/2022 106.1 kg (234 lb) 07/26/2022 108 kg (238 lb) Please advise. Thank you. CARLOS Schulte documented in this encounter [facility] 07-31-2022 Miscellaneous Notes Request completed and faxed. Confirmed and filed. Alea Arias Ma Type of letter/form/fax request - Medical Necessity Form received from Christiano magana on 2c floor and placed on [facility] Mary Do's desk for completion. Completed form needs to be faxed to [phone]. Route to [place] when form completed for processing documented in this encounter [facility] 07-27-2022 Note [facility] 07-26-2022 Note HNO ID: [id number] Author: Marisa Iglesias APRN.EUGENIO Service: ? Author Type: Nurse Practitioner Type: Progress Notes Filed: 07/27/2022 7:34 AM Note Text: Postoperative Note FLAQUITO Mathew Date of visit: July 26, 2022 Patient Name: Mr.Donald Neema Espino Date of : 1945 Current Age: [age] year old Sex: male MRN/E# [id number] Last Office Visit: 06/11/2022 Postop Lumbar: ASSESSMENT: [...] in bowel/bladder. Progress: He was discharged from [facility] on 07/19/2022 to acute rehab facility with prescription for Keflex x7 days. He presents to the office today for routine 2-week postoperative follow-up visit and reports participation in physical therapy at acute rehab facility in [place]. He feels he is gradually gaining strength [...] has [facility] and feels his strength is gradually [...] the best of my ability. Marisa Iglesias APRN-WATER 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 [facility] This note was partially generated using Hospicelink voice recognition system, and there may be some incorrect words, spellings, and punctuation that were not noted in checking the note before saving. [facility] 07-26-2022 History of Present illness Narrative Postoperative Note Marisa Iglesias APRN-WATER 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 Date of visit: July 26, 2022 Patient Name: Mr.Donald Neema Espino Date of : 1945 Current Age: [age] year old Sex: male MRN/E# [id number] Last Office Visit: 06/11/2022 Postop Lumbar: ASSESSMENT: [...] in bowel/bladder. Progress: He was discharged from [facility] on 07/19/2022 to acute rehab facility with prescription for Keflex x7 days. He presents to the office today for routine 2-week postoperative follow-up visit and reports participation in physical therapy at acute rehab facility in [place]. He feels he is gradually gaining strength [...] has been participating in physical therapy at jail facility and feels his strength is gradually [...] best of my ability. Marisa Iglesias APRN-EUGENIO [facility] This note was partially generated using Hospicelink voice recognition system, and there may be some incorrect words, spellings, and punctuation that were not noted in checking the note before saving. documented in this encounter [facility] 07-18-2022 Note [facility] 07-17-2022 Note HNO ID: [id number] Author: Mica Funes RN Service: Care Management Author Type: Registered Nurse Type: Care Mgt Progress Note Filed: 07/17/2022 1:09 PM Note Text: CARE MANAGEMENT DISCHARGE NOTE SERVICE DATE: 07/17/2022 SERVICE TIME: 1:03 PM LOS: 0 days Admission Date: 07/12/2022 DISCHARGE ARRANGEMENT (list agency and phone number) Discharge Arrangement: Senior Living Facility CAREGIVER ASSESSMENT: Patient's transition needs and plan for meeting these needs: discharging to SNF HANDOFF COMMUNICATION: Handoff to: Primary Care Physician Primary Care Physician Name/Phone: Yosef Whitaker MD PCP - General, Family Medicine [phone] TRANSPORTATION ARRANGEMENTS: Transportation Arrangements: Ambulance Transportation Agency and Phone #:: [facility] ( [facility] ) [phone] / [phone] Date of Trip: 07/17/22 Time of Trip: 1900 Type of Service: BLS Non-emergency Is Patient Medicaid Pending?: No Was transportation financial coverage discussed with family?: Patient Intelligence Group Supervisor Location: [facility] Destination: [facility] Financial Care Management Responsibility: None Discharge Information Row Name Admission (Current) [place] 07/12/2022 in [place] NEURO/CARD Senior Living Facility Agency [facility] Insurance authorization was obtained for patient to discharge to [facility]. [facility] transport was scheduled at 7pm. Discussed discharge plans with patient and his . Discharge instructions sent to the facility. Envelope which contains the phone number for nurse to nurse report is next to chart. SIGNATURE: Mica Funes RN PATIENT NAME: Essie Espino DATE: July 17, 2022 TIME: 1:03 PM PAGER/CONTACT #: [phone] [facility] 07-17-2022 Note HNO ID: [id number] Author: Huber No [facility] Service: Pharmacy Author Type: Pharmacist Type: Plan [...] were discussed with LIP for further review: [place] was ordered at discharge, but pt had not needed any doses over the past 4 days and pain scores have not been elevated. Reached out to NSGY PA to see if we could d/c at discharge. He was agreeable. No additional recommendations I have discussed the recommendations and the medication orders have been addressed by LIPJessi No [facility] July 17, 2022 11:52 AM Pager: [phone] 07/17/2022 11:52 AM Medication List START taking [...] 75 mg EC tablet [facility] 07-17-2022 Note HNO ID: [id number] Author: Mekhi Carr PA-C Service: Neurosurgery Author Type: Physician Cargo Trimmer Type: Progress Notes Filed: 07/17/2022 9:49 AM [...] heparin -Dispo: PT/OT rec SNF; accepted to [facility] and precert complete. Will discharge this afternoon Medication and Non-Pharmacologic VTE Prophylaxis/Anticoagulants Anticoagulant AND Antiplatelet Medications (From admission, onward) Start Dose Route Frequency Last Action Ordered Stop 07/16/22 0900 heparin 5,000 Units injection 5,000 Units SUBCUTANEOUS EVERY 12 HOURS Given, 07/17 0845 07/16/22 0855 -- 07/14/22 0945 activity - mobilize patient (or,ne) 07/12/22 1445 vte pharmacologic prophylaxis contraindicated (or,ne) 07/12/22 1445 pneumatic compression stockings (or,ne) Parts of this note may have been copied from one of my previous notes and remain pertinent. The documentation has been reviewed and edited as necessary to support the clinical decision making for today's visit. SIGNATURE: Mekhi Carr PA-C PATIENT NAME: Essie Espino DATE: July 16, 2022 TIME: 8:52 AM Pager: [phone] [facility] 07-16-2022 Note HNO ID: [id number] Author: Mica Funes RN Service: Care Management Author Type: Registered Nurse Type: Care Mgt Progress Note Filed: 07/16/2022 11:31 AM Note Text: CARE MANAGEMENT PROGRESS NOTE SERVICE DATE: 07/16/2022 SERVICE TIME: 11:27 AM LOS: 0 days Needs Prior to Discharge: Precertification;Discharge Transportation Patient was accepted by both [facility] and [facility]. Patient and decided on [facility]. Precert was initiated and transport placed on stand by. SIGNATURE: Mica Funes RN PATIENT NAME: Essie Espino DATE: July 16, 2022 TIME: 11:27 AM PAGER/CONTACT #: [phone] [facility] 07-16-2022 Note HNO ID: [id number] Author: Mekhi Carr PA-C Service: Neurosurgery Author Type: Physician Cargo Trimmer Type: Progress Notes Filed: 07/16/2022 10:15 AM [...] Prophylaxis/Anticoagulants 07/14/22 0945 activity - mobilize patient (or,ne) 07/12/22 1445 vte pharmacologic prophylaxis contraindicated (or,ne) 07/12/22 1445 pneumatic compression stockings (or,ne) Parts of this note may have been copied from one of my previous notes and remain pertinent. The documentation has been reviewed and edited as necessary to support the clinical decision making for today's visit. SIGNATURE: Mekhi Carr PA-C PATIENT NAME: Essie Espino DATE: July 16, 2022 TIME: 8:52 AM Pager: [phone] [facility] 07-15-2022 Note HNO ID: [id number] Author: Wily Castañeda APRN.WATER 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 Service: Neurosurgery Author Type: Nurse Practitioner Type: [...] 0659 07/15/22 07 - 07/16/22 0659 Shift [id number] 8516-2193 7313-0438 24 Hour Total 6780-2326 9911-5554 6997-2666 24 Hour Total INTAKE Shift Total OUTPUT [...] updated accordingly on 07/15/2022 SIGNATURE: Wily Castañeda APRN.CNP PATIENT NAME: Essie Espino DATE: July 15, 2022 TIME: 12:47 PM Wily Castañeda APRN.WATER 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 Pager: [phone] Neurosurgery Pager: [phone] [facility] 07-14-2022 Note HNO ID: [id number] Author: Kelechi Carter MD Service: Hospital Medicine Author Type: Physician Type: Progress Notes Filed: 07/14/2022 9:15 AM Note Text: BP and glucose reviewed and are stable. Will formally sign off. [facility] 07-13-2022 Note HNO ID: [id number] Author: Amanda Hudson RN Service: Nursing Author Type: Registered Nurse Type: Nursing Progress Note Filed: 07/13/2022 6:32 PM Note Text: 1830 Lower back dressing changed at this time, new ABD applied. [facility] 07-13-2022 Note HNO ID: [id number] Author: Mekhi Carr PA-C Service: Neurosurgery Author Type: Physician Cargo Trimmer Type: Procedures Filed: 07/13/2022 4:34 PM Note [...] Mekhi Carr PA-C Neurosurgery July 13, 2022 [facility] 07-13-2022 Note HNO ID: [id number] Author: Kelechi Carter MD Service: Hospital Medicine Author Type: Physician Type: Progress Notes Filed: 07/13/2022 7:58 AM Note Text: DEPARTMENT OF HOSPITAL MEDICINE PROGRESS NOTE SERVICE DATE: 07/13/2022 SERVICE TIME: 7:58 AM Hospital Medicine/Primary Attending: Kelechi Carter MD NIGHT AND WEEKEND COVERAGE: After 7pm please page [phone] SUBJECTIVE: Follow up for consult. No CP [...] 7:58 AM PAGER/CONTACT #: My Pager. Page [phone] after 7PM, as my pager is off. [facility] 07-13-2022 Note HNO ID: [id number] Author: Mekhi Carr PA-C Service: Neurosurgery Author Type: Physician Cargo Trimmer Type: Progress Notes Filed: 07/13/2022 10:04 AM [...] Prophylaxis/Anticoagulants 07/12/22 1445 vte pharmacologic prophylaxis contraindicated (fl,oh) 07/12/22 1445 pneumatic compression stockings (or,oh) Parts of this note may have been copied from one of my previous notes and remain pertinent. The documentation has been reviewed and edited as necessary to support the clinical decision making for today's visit. SIGNATURE: Mekhi Carr PA-C PATIENT NAME: Essie Espino DATE: July 13, 2022 TIME: 7:45 AM Pager: [phone] [facility] 07-13-2022 Note HNO ID: [id number] Author: Sangita Hebert RN Service: Nursing Author Type: Registered Nurse Type: Progress Notes Filed: 07/13/2022 6:19 AM Note Text: Another RN was attempted to get patients bloodwork while tasking and was unsuccessful. Patient does not wish to have anymore attempts at this time and would like to wait and talk with doctors when they round to see if additional bloodwork is necessary. [facility] 07-12-2022 Note HNO ID: [id number] Author: Mica Funes RN Service: Care Management Author Type: Registered Nurse Type: Care Mgt Initial Assessment Filed: 07/12/2022 3:57 PM Note Text: CARE MANAGEMENT: ASSESSMENT AND DISCHARGE PLAN SERVICE DATE: July 12, 2022 SERVICE TIME: 3:55 PM PRIMARY CARE PHYSICIAN: Yosef Whitaker MD Primary Contact: Extended Emergency Contact Information Primary Emergency Contact: Stacey Espino Address: [address] [place] [address] Relation: Spouse ADMISSION STATUS: Ambulatory Surgery Insurance Provider: UHC MEDICARE ADVANTAGE PPO NEEDS PRIOR TO DISCHARGE Needs Prior to Discharge: To Be Determined POTENTIAL TRANSITION PLANS To Be Determined Based on clinical judgement, Care Management will address the following needs: Medical Patient's perception of need for this admission: surgery ADVANCE DIRECTIVES Current Advance Directive: Health Care Power of Papier Mache Molder In Chart: Yes Up To Date and [...] discharge within 30 days: No PATIENT SCREEN Patient/Mingler Operator Stated Goals: To have reduction in symptoms, To return home to life as it was, To have reduction in pain Under the care of a PCP?: Yes, Internal Provider Provider Name: Yosef Whitaker MD PCP - General, Family Medicine [phone] Does the patient have transportation upon discharge?: [...] Completely I feel financially burdened by my vtd-fv-gfftpj expenses for my prescription medication:: 0 - Disagree Completely Risk Score: 0 Patient is categorized as: Low risk < 2 No social discharge barriers identified at this time. No behavioral/cognitive discharge barriers identified at this time. No functional discharge barriers identified at this time. FREEDOM OF CHOICE EXPLAINED: Whitman of Choice Given: No Reason Not Given: [...] 12, 2022 TIME: 3:55 PM CONTACT #: [phone] [facility] 07-12-2022 Note HNO ID: [id number] Author: Mauro Garrett APRN.CRNA Service: Anesthesiology Author Type: Nurse Marker Machine Attendant Type: Anesthesia Procedure Notes Filed: 07/12/2022 8:38 [...] Successful intubation technique: video laryngoscopy Devices used: [employer] Endotracheal tube insertion site: oral Blade: Sandi Blade size: #4 ETT size (mm): 7.5 Measured from: gums Measurement (cm): 23 Placement verified by: chest auscultation Cormack-Lehane Classification: grade IIa - partial view of glottis Number of attempts at approach: 1 Failed airway: no Unrecognized esophageal intubation: no Airway not difficult SIGNATURE: Mauro Garrett APRN.[employer] ARCHITECT PATIENT NAME: Essie Espino DATE: July 12, 2022 TIME: 8:35 AM CSN: [id number] [facility] 07-04-2022 Note [facility] 07-04-2022 History of Present illness Narrative Chief Complaint Patient presents with: Pre-Op Exam HPI Essie Espino is a 76 year old male who presents here today for pre op. Patient is scheduled to have lumbar surgery per Dr. Simpson at [facility] on 07/12/2022 Patient with Hx of [...] Abs Lymph 1.00 - 4.00 k/uL 2.42 [place]% % 8.8 Abs [place] <0.87 k/uL 0.83 E[place]% % 7.5 Abs [...] * * * * NM CTAC Report: [facility] Date of service: 07/02/2022 8:07:41 AM CTAC [...] later. See administered radiotracer and doses below. [facility] Date of service: 07/02/2022 8:07:41 AM Ordering [...] evidence of scarring. Final Stress ECG Report: [facility] Date of service: 07/02/2022 8:07:41 AM Ordering physician: KIM ALONZO obstetrics specialist: Cathryn Diallo Cargo Trimmer: Chen Antonio Interpreting physician: Polo Avery DO [...] 156/75 mmHg. The double product achieved was 98576. Medications: Last Used DITROPAN COZAAR NEURONTIN PRILOSEC [...] / 75 mmHg Rate Pressure Product (RPP): 87822 Stress Exercise Observations: Reason for test termination: end of protocol, Symptoms during test: Other symptoms during the test included SOB, ST segment and T wave changes: No ST changes and Arrhythmias: Multifocal PVCs Final Stress Outreach Librarian Report: [facility] Date of service: 07/02/2022 8:07:41 AM Supervising physician: Polo Avery DO PATIENT: Name: MR. ESSIE ESPINO Age: 76 years Gender: M The supervising physician was in the department and immediately available. Final RP Customer Experience Specialist: RADHA Transcribe Date/Time: Jul 02 2022 8:07A Dictated by : YAN OSUNA MD This examination was interpreted and the report reviewed and electronically signed by: YAN OSUNA MD on Jul 03 2022 1:20PM EST Result History NM CARDIAC PERF STRESS/PHARM (Order #[id number]) on 07/03/2022 - Order Result History Report [...] have lumbar surgery per Dr. Simpson at [facility] on 07/12/2022 3. Type 2 diabetes [...] Yosef Whitaker MD documented in this encounter [facility] 07-03-2022 Miscellaneous Notes Spoke with [employer] of [...] Kim Alonzo MD documented in this encounter [facility] 07-02-2022 Note [facility] 07-02-2022 History of Present illness Narrative CMN RECEIVED BY [employer] VIA FAX, COMPLETED, AND PLACED IN PROVIDER MAILBOX FOR SIGNATURE Wesley Garcia, Administration Assistance 07/02/22 [employer] SENDING CMN: Christiano SIGNED AND DATED CMN, FAXED TO [employer] & CONFIRMATION PAGE RECEIVED: 07/10/22 documented in this encounter [facility] 07-02-2022 Note HNO ID: [id number] Author: JOSE MANUEL Huynh Service: Radiology Author [...] Discontinued PROCEDURE TYPE: NM Stress: 15.7 mCi Ef35y-Onhhyqw was administered IV for Rest Imaging at 7:35 by mm. 46.6 mCi Ae94t-Wbwxpbv was administered IV for Stress Imaging at 8:50 by mm. PATIENT DISCHARGED TO: Ambulatory patient, left [place] department area. A Diagnostic radioactive procedure has taken place, with no further precautions necessary other than routine body substance precautions. More information regarding radiation safety can be found using this link: [email or web address]%20Med [email or web address] SIGNATURE: JOSE MANUEL Huynh PATIENT NAME: Essie Espino DATE: July 02, 2022 TIME: 9:36 AM PAGER/CONTACT #: [facility] 07-02-2022 History of Present illness Narrative RADIOLOGY [...] Discontinued PROCEDURE TYPE: NM Stress: 15.7 mCi Ro24v-Wztgnmc was administered IV for Rest Imaging at 7:35 by mm. 46.6 mCi Pe17t-Ceblzke was administered IV for Stress Imaging at 8:50 by mm. PATIENT DISCHARGED TO: Ambulatory patient, left [place] department area. A Diagnostic radioactive procedure has taken place, with no further precautions necessary other than routine body substance precautions. More information regarding radiation safety can be found using this link: [email or web address] [email or web address] ear%[email or web address] SIGNATURE: JOSE MANUEL Huynh PATIENT NAME: Essie Espino DATE: July 02, 2022 TIME: 9:36 AM PAGER/CONTACT #: documented in this encounter [facility] 06-29-2022 Note HNO ID: [id number] Author: Kim Alonzo MD Service: ? Author Type: Physician Type: Progress Notes Filed: 06/29/2022 2:24 PM Note Text: PRIMARY CARE PHYSICIAN: [place] [address] REFERRING PHYSICIAN: [place] [address] CHIEF COMPLAINT: Preoperative cardiac risk assessment prior [...] 11/01/2013 Morbid obesity due to excess calories ([facility]) 04/06/2015 Neuropathy 10/31/2013 Had low back surgery [...] lumbar region Stage 3a chronic kidney disease ([facility]) 02/01/2022 Type 2 diabetes mellitus with diabetic polyneuropathy, without long-term current use of insulin ([facility]) 12/12/2015 Urge incontinence 08/10/2015 VENTRICULAR TACHYCARDIA, PAROXYSMAL [...] once daily. gabapent (more content not included)... [facility] 06-29-2022 History of Present illness Narrative PRIMARY CARE PHYSICIAN: Yosef Whitaker [address] [place] [address] REFERRING PHYSICIAN: Yosef Whitaker [address] [place] [address] CHIEF COMPLAINT: Preoperative cardiac risk assessment prior [...] Kim Alonzo MD documented in this encounter [facility] 06-29-2022 Instructions Kim Alonzo MD - 06/29/2022 2:15 PM EST Stress testing for further evaluation documented in this encounter [facility] 06-29-2022 Nurse Note Patient has no cardiac complaints today. Carmen Renee CMA documented in this encounter [facility] 06-28-2022 Note HNO ID: [id number] Author: RT Lakshmi(R) Service: Radiology Author Type: Writer Producer Type: Progress Notes Filed: 06/28/2022 3:07 PM [...] RT Lakshmi(R) June 28, 2022 3:05 PM [facility] 06-28-2022 Miscellaneous Notes Addended by: REUBEN DOMINGUEZ on: 06/28/2022 03:56 PM Modules accepted: Orders, SmartSet documented in this encounter [facility] 06-28-2022 History of Present illness Narrative Radiology [...] 2022 3:05 PM documented in this encounter [facility] 06-28-2022 History and physical note HISTORY AND [...] COVID-19 booster vaccine, age 12+ yr, bivalent ([employer]) 02/16/2021 Imm Admin: COVID-19 vaccine, age 12+ [...] Prior to Admission medications as of 06/28/22 1339 Medication Sig Last Dose Taking oxybutynin ER [...] or any previous visit (from the past 18414 hour(s)). Assessment Patient has the following medical conditions which may affect chiquita-operative course: Type 2 diabetes mellitus with diabetic polyneuropathy, without long-term current use of insulin ([facility]) A1C 6.3 on 01/01/22. Metformin 1000mg. Stage 3a chronic kidney disease (HCC) Cr 1.27 on 01/31/22 Obstructive sleep apnea syndrome CPAP compliant. Mixed hyperlipidemia Simvastatin 10mg Essential Hypertension, Benign Losartan 50mg, HCTZ 12.5mg Coronary artery disease ASA 81mg. Pt denies prior LA, Stents, or bypass. Cardiac optimization requested. Stress ECHO 07/25/05 STRESS ECHO RESULTS Resting study (technically limited) wall motion is normal. Visually estimated LVEF is 55% Exercise study (technically limited) wall motion is normal. Visually estimated LVEF >70% CONCLUSIONS Normal stress echo, negative for ischemia on views obtained at 9 mets, 93% MPHR EKG done In [facility] shows NSR with 1st degree AV block. [...] [facility] or Procedure: Answer: [facility] Confirm Blood Type Order Comments: Draw [...] which included preparing to see the patient, tvqq-fw-hjps patient care, completing clinical documentation, performing a medically appropriate examination, and counseling and educating the patient/family/caregiver. Instructions Given to Patient: Instructions located in the after visit summary. Patient given verbal and written preop instructions and voices comprehension and compliance. SIGNATURE: MELINDA Galindo PATIENT NAME: Essie Espino DATE: June 28, 2022 TIME: 12:36 PM PAGER/CONTACT #: documented in this encounter [facility] 06-28-2022 Instructions MELINDA Galindo - 06/28/2022 12:36 PM EST PATIENT PREOPERATIVE INSTRUCTIONS Your surgeon has scheduled for your procedure at this surgery center: [facility]: [phone], [address] [id number] Please enter through the main entrance and proceed to the blue elevators. The surgery [place] [facility] is located to the left of the blue elevator. Please read below carefully for your personalized instructions. Arrival Time for Surgery: DATE: 07/12/22 - To obtain your ARRIVAL TIME for surgery, call your physician's office the day before your surgery. - If your surgery is scheduled for Saturday, call the Saturday before. Your surgeon's dental scheduler will tell you what time to [...] surgery. - YOU MUST HAVE A RESPONSIBLE FORMULA WEIGHER TAKE YOU HOME. A INSPECTOR RADAR AND ELECTRONICS, CAB OR UBER FORMULA WEIGHER CANNOT BE MADE A RESPONSIBLE FORMULA WEIGHER. - You cannot stay in a hotel [...] of surgery. Orthopedic patients having surgery [facility] listed as outpatient should bring their walker into the building. Orthopedic patients having surgery [facility] listed as to be admitted should leave their walkers in the car or with a family member. Hibiclens provided MELINDA Galindo 06/28/22 documented in this encounter [facility] 06-21-2022 Miscellaneous Notes Download is satisfactory. Will sign approval from sleep medicine side for surgery. Patient is continue nightly use of CPAP. Mary Images from the original note were not included. 30 day download requested by provider. [facility] had his set up appointment at [facility] this morning. They will tag us with new machine. Old machine was a [employer] and the last data was from 03.22.23-04.22.22. documented in this encounter [facility] 06-17-2022 Note HNO ID: [id number] Author: Casey Zamarripa, PhD Service: ? Author [...] the purpose and/or need for the third democrat () to be present and the circumstances and extent to which confidential information may be disclosed to the third democrat. A clinical interview was then conducted with [...] Status (RBANS: Figure Copy, Line Orientation; Coding); Holland Making Test, Parts A AND B; Complex [...] by himself. 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 He has balance [...] testing Data Reviewed: -Neurology note -MMSE: (06/19/18), (01/01/22) -B (more content not included)... [facility] 06-17-2022 History of Present illness Narrative Images [...] the purpose and/or need for the third democrat () to be present and the circumstances and extent to which confidential information may be disclosed to the third democrat. A clinical interview was then conducted with [...] Status (RBANS: Figure Copy, Line Orientation; Coding); Holland Making Test, Parts A & B; Complex [...] by himself. 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 He has balance [...] talking in class. 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 Relevant Psychiatric & Substance Use History: Mr. Espino denied a history of psychiatric diagnoses, treatments, or hospitalizations. He denied past or current substance abuse. He drinks alcohol occasionally. He denied tobacco or recreational drug use. Relevant Social History: Mr. Espino is . He has 4 children and many grandchildren. He is a monolingual Italian speaker. He is an only child. Relevant [...] you have any questions about the evaluation ([phone]). Casey Zamarripa, PhD Clinical Neuropsychologist Test Summary [...] Phonemic Fluency (F-A-S) 39 Semantic Fluency 47 Holland Making Test ([place]augh) T Score Trails A 40 Trails B 28 Complex Ideational Material (Pat) Raw = 12/12 Scaled Score = 12 Grooved Pegboard Test (Pat) T Score Dominant Hand 44 Nondominant Hand 39 Rating Scales Total Score GDS-SF 6 GAS-10 5 QDRS 6 Services associated with this evaluation: 06/01/2022: 95027 x 60 minutes 92630 x 30 minutes 52000 x 120 minutes 06/15/2022: 00074 x 60 minutes 90504 x 180 minutes documented in this encounter [facility] 06-13-2022 Miscellaneous Notes The following approved medication [...] of last office visit in primary care: [facility] 01/01/22 Appointment scheduled 07/04/22 Last 2 Encounter Wt Readings: Date: Wt: 06/11/2022 104.3 kg (230 lb) 03/28/2022 108 kg (238 lb) Please advise. Thank you. CARLOS Schulte documented in this encounter [facility] 06-13-2022 Miscellaneous Notes Patient has been identified [...] Last refill; 11/2021 documented in this encounter [facility] 06-11-2022 Note HNO ID: [id number] Author: Stephanie Simpson I, MD Service: ? Author Type: Physician Type: Progress Notes Filed: 06/11/2022 1:42 PM Note Text: NEUROSURGERY CONSULT NOTE Stephanie Simpson MD Chair, Clinical Neurosciences Director, Spinal Neurosurgery [facility] Date of visit: June 11, 2022 Patient Name: Mr.Donald Neema Espino Date of : 1945 Current Age: [age] year old Sex: male MRN/E# [id number] Last Office Visit: Visit date not found [...] surgery in [address] To in [place] PAIN EVALUATION 06/04/2022 1002 Pain Level: 5 [...] right check Stage 3a chronic kidney disease ([facility]) 02/01/2022 Type 2 diabetes mellitus with diabetic polyneuropathy, without long-term current use of insulin ([facility]) 12/12/2015 Urge incontinence 08/10/2015 VENTRICULAR TACHYCARDIA, PAROXYSMAL [...] Alcohol/Drug Father a (more content not included)... [facility] 06-11-2022 History of Present illness Narrative Images from the original note were not included. NEUROSURGERY CONSULT NOTE Stephanie Simpson MD Chair, Clinical Neurosciences Director, Spinal Neurosurgery [facility] Date of visit: June 11, 2022 Patient Name: Mr.Donald Neema Espino Date of : 1945 Current Age: [age] year old Sex: male MRN/E# [id number] Last Office Visit: Visit date not found [...] surgery in [address] To in [place] PAIN EVALUATION 06/04/2022 1002 Pain Level: 5 [...] right check Stage 3a chronic kidney disease ([facility]) 02/01/2022 Type 2 diabetes mellitus with diabetic polyneuropathy, without long-term current use of insulin ([facility]) 12/12/2015 Urge incontinence 08/10/2015 VENTRICULAR TACHYCARDIA, PAROXYSMAL [...] MD Chair, Clinical Neurosciences Director, Spinal Neurosurgery [facility] This note was partially generated using H[employer] voice recognition system, and there may be some incorrect words, spellings, and punctuation that were not noted in checking the note before saving. documented in this encounter [facility] 06-01-2022 Note HNO ID: [id number] Author: Casey Zamarripa, PhD Service: ? Author Type: Psychologist Type: Progress Notes Filed: 06/01/2022 4:47 PM Note Text: [facility] Department of Psychiatry AND Behavioral Sciences Neuropsychology Consultation [...] Clinical Neuropsychologist Services associated with this encounter: 75318 x 60 minutes 01464 x 30 minutes 54679 x 120 minutes [facility] 06-01-2022 History of Present illness Narrative [facility] Department of Psychiatry & Behavioral Sciences Neuropsychology Consultation [...] Clinical Neuropsychologist Services associated with this encounter: 56425 x 60 minutes 95828 x 30 minutes 12902 x 120 minutes documented in this encounter [facility] 05-18-2022 Miscellaneous Notes Faxed new PAP machine order, office visit notes to: DME name: [facility] [address] [place] [address] P: [phone] F: [phone] Fax confirmation received electronically. Patient notified via [employer] message ----- Message from Mary Do APRN.CNP sent at 05/17/2022 3:43 PM EST ----- Hi, Can CPAP order and my note be faxed to [facility]? Patient is est with them will only need those 2 things. Thank you, Mary documented in this encounter [facility] 05-17-2022 History of Present illness Narrative Images from the original note were not included. 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 He does have difficulty with memory [...] PRIOR SLEEP STUDIES: PAP titration scanned into [employer] PAST MEDICAL HISTORY Diagnosis Date Advance directive [...] Polyneuropathy, Without Long-Term Current Use of Insulin ([facility]) Ex-Smoker Esophageal Stenosis Elevated [place] Medicare Annual Wellness Visit, Subsequent Chronic Pain of Left Knee Elevated Psa Chronic Pain of Right Knee Pain of Both Hip Joints Coronary Artery Disease Gerd Without Esophagitis Medication Management Leg Pain, Bilateral Left Ankle Pain Bilateral Leg Edema Living Will On File Advance Directive Discussed With Patient Memory Difficulties Ataxia Shuffling Gait Stage 3a Chronic Kidney Disease ([facility]) Allergies As of Date: 05/17/2022 Allergen Noted [...] now broken. [email or web address] [place] and been obtaining monthly supplies. Will set him up with AutoPAP to forgo need to return to lab for PAP titration. - Will start Auto CPAP 7-20 cmH2O with a Nasal mask. - I will have a prescription sent to a [employer] company - [email or web address] who will be calling you in the next 1-2 weeks or so. Please call them directly or us if you do not hear from them in this time frame. - You should be eligible for new supplies approximately every 3-6 months, depending on your insurance coverage. - If your mask doesn't fit well, call the [employer] company before 30 days are up to get a new mask without an additional charge. - Insurance requires regular usage and periodic office follow ups for PAP therapy, to continue to cover supplies. INSURANCE REQUIREMENTS: - Your insurance requires a rimn-pp-phvt follow up visit within a 31-90 day [...] which included preparing to see the patient, dppp-dt-kbgy patient care, completing clinical documentation, obtaining and/or reviewing separately obtained history, counseling and educating the patient/family/caregiver, ordering medications, tests, or procedures, and communicating results to the patient/family/caregiver. documented in this encounter [facility] 05-17-2022 Miscellaneous Notes Images from the original note were not included. documented in this encounter [facility] 05-07-2022 Miscellaneous Notes Spoke with patient's , gave results of MRI Brain and L-spine, placed referral to NSGY and gave phone number. Also gave number to [facility] department - they had called [facility] to make neuropsych appointment there and were unable to schedule, hopefully have more luck with [facility] number. documented in this encounter [facility] 05-02-2022 History of Present illness Narrative Radiology Service [...] 2022 10:06 AM documented in this encounter [facility] 04-24-2022 Miscellaneous Notes Patient last visit with PCP 01/01/22 Follow up appointment scheduled 07/04/2022 Rita Lai Ma documented in this encounter [facility] 04-24-2022 Miscellaneous Notes Patient has been identified [...] Ольга Momin LPN documented in this encounter [facility] 03-28-2022 Instructions Margot Bravo MD - 03/28/2022 3:16 PM EST Lets do an MRI Brain / Lumbar spine and neuropsych testing. 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 Margot Bravo MD [facility] Neurology documented in this encounter [facility] 03-13-2022 Miscellaneous Notes 1st attempt to reach [...] see sleep med. documented in this encounter [facility] 03-12-2022 Miscellaneous Notes The following approved medication [...] with 0 refills LORENZA 01/01/22 NOV 07/04/22 Vini Cain LPN documented in this encounter [facility] 02-01-2022 Miscellaneous Notes Patient's , Stacey, notified. Verbalized understanding. Let patient know his PSA was back to normal. Iron studies, folate and B12 were all ok. CBC showed Hemoglobin is improved. Electrolyte panel showed kidney functions slightly improved but still showing impairment and appears dihydrated. Again encourage trying to get 6-8 eight Oz glasses of water a day. documented in this encounter [facility] 01-22-2022 Miscellaneous Notes Pt notified of results via [employer]. Lucy Townsend Ma Let patient know CT of head showed no acute issues. Just normal age related changes. documented in this encounter [facility] 01-03-2022 Miscellaneous Notes Left message of same on pt's identified vm. Vini Cain LPN Let patient know that his urine results came back normal. documented in this encounter [facility] 01-02-2022 Miscellaneous Notes returned call and given [...] labs. Orders placed. documented in this encounter [facility] 01-02-2022 Miscellaneous Notes Orders placed. Lab calling stating they need a new order for a urinalysis and a urine creatinine Pended please sign Mary Yusuf Cma documented in this encounter [facility] 01-01-2022 History of Present illness Narrative Images [...] then. PMH - PAST MEDICAL HISTORY OF 11/08 release nerves in back Snoring Unspecified sleep apnea 04/24/2005 CPAP with good success VENTRICULAR TACHYCARDIA, PAROXYSMAL 07/04/2005 PAST SURGICAL HISTORY PAST SURGICAL HISTORY Procedure Laterality Date COLONOSCOP W/ OR W/O [facility] SPEC 11/07/2005 Colonoscopy recheck 10 yrs COLONOSCOP W/ OR W/O [facility] SPEC 07/29/2017 Colonoscopy EGD W/O OR W/BRUSH/WASH [...] directives. Depression screen Depression Screening 12/18/2017 12/30/2018 08/28/2021 01/01/2022 PHQ-2 Score 2 0 0 0 Depression [...] polyneuropathy, without long-term current use of insulin ([facility]) 12/12/2015 Urge incontinence 08/10/2015 VENTRICULAR TACHYCARDIA, PAROXYSMAL [...] from Folstein et al.1 and Meghna and Stephenstein2. (c) 1974, 1997 [employer] Used with permission. References: 1. Folstein MF, Folstein SE, Glenna ID. Mini-Mental State: a practical method for grading the cognitive state of patients for the clinician. J Psychiatr Res. 1975; 12:189-198. 2. JR Meghna, Yasmine HURTADO, Mini-Mental State Examination (MMSE). Psychopharm Bull. 1988;24:689-692. 3. Vinny MullerT, Hillary FJ, Flavio RD, Tucker Barrios, Rashi F. Neuropsychological function in Alzheimer's disease: pattern of impairment and rates of progression. Arch Neurol. 1988;45:263-268. 4. Merrill JA, Tyrone B, Juan A SEsP, Lars FERRER. Predictors of cognitive and functional progression in patients with probable Alzheimer's disease. Neurology. 1992;42:5779-1339. A/P ASSESSMENT/PLAN: 1. Medicare annual wellness visit, subsequent - ICD9: V70.0, ICD10: Z00.00 (primary diagnosis) - Counseled on healthy diet and regular exercise - Patient was counseled [id number] by myself (the billing provider) for the [...] which included preparing to see the patient, [id number] patient care, completing clinical documentation, performing a medically appropriate examination, counseling and educating the patient/family/caregiver and ordering medications, tests, or procedures. Yosef Whitaker MD documented in this encounter [facility] 12-20-2021 Miscellaneous Notes The following approved medication [...] Mary Chin MA documented in this encounter [facility] 11-29-2021 Miscellaneous Notes LORENZA 10/06/21 NOV 01/01/22 Vini Cain LPN documented in this encounter [facility] 10-30-2021 Miscellaneous Notes Please notify this patient [...] Alpa Tran RN documented in this encounter [facility] 10-27-[address] Wilson routed gave patient their results on different encounter. Patient calling about the results of recent Penile biopsy. Please advise documented in this encounter [facility] 10-19-2021 History of Present illness Narrative Images from the original note were not included. [facility] CONSULT [...] follow. Consultation requested by Dr. Yosef Whitaker [address] [facility] [address] for an opinion regarding Mr. Espino and my final recommendations will be communicated back to the requesting physician by way of shared Medical record or letter via US mail. Gilbert Wilson MD, MS Associate Staff [facility] [place] [facility] documented in this encounter [facility] 10-16-[address] - 10/16/2021 10:38 AM EDT Increase exercise to 30 min, - plan for 10 min three x daily; if able add weight resistance 2-3 x per week (youtube videos) Consider tracking intake with kiel such as Dekko aiming for 9643-7780 calories Follow the Plate Method at lunch [...] eating after dinner. documented in this encounter [facility] 10-16-2021 History of Present illness Narrative Nutrition [...] Consider tracking intake with kiel such as Dekko aiming for 7025-6206 calories Follow the Plate Method at lunch [...] peres Alcohol- occ wine 1-2 x pe [facility] Vitamins/Supplements - B12, C, Activity: Activities of [...] Physical limitations affecting learning: None Referred/Supervised by: Renita EDGE Billing Type: Initial Assess/15 min 2 units SIGNATURE: Lila Blanca RD PATIENT NAME: Essie Espino DATE: October 16, 2021 TIME: 10:09 AM documented in this encounter [facility] 10-10-2021 Miscellaneous Notes Patient notified via [employer] message. Mary Chin MA Let patient know testing for syphilis, gonorrhea and chlamydia were all negative. documented in this encounter [facility] 10-06-2021 History of Present illness Narrative Chief [...] Yosef Whitaker MD documented in this encounter [facility] 09-05-2021 Miscellaneous Notes Addended by: YOSEF WHITAKER [...] accepted: Orders Pt's Stacey states she called [facility] & was told they do not have a refill on file for gabapentin 100mg, per pt's chart a refill was escripted in for the 100mg & 400mg at the same time. [facility] does have a refill for the 400mg. Please advise. Gris Granda LPN Spoke with pt and advised of Dr Whitaker's message. Pt states he got his gabapentin 400 mg in the mail but did not get the 100 mg. Advised him they were ordered at the same time for the same amount. Pt is going to contact [facility] and will contact office if any issues. Vini Cain LPN Advise patient his last refill for the gabapentin 100 mg on 06/28/2021 was good for 90 days with one refill. Has he called [facility] to get his next refill sent? Last refill 06/28/21 Qty: 540 with 1 refill Last ov 08/28/21 Pt has appt 01/01/22 Vini Cain LPN documented in this encounter [facility] 08-31-2021 History of Present illness Narrative Episode [...] Planned: 8 Planned Treatment Interventions: Therapeutic exercise (55909);Neuromuscular re-education (08300);Manual therapy (71304);Therapeutic activities (65929);Self-snf management (98689);Patient/Family/Caregiver Education;Body Mechanics Training PLAN FOR NEXT VISIT: [...] Jovanni Bright PT documented in this encounter [facility] 08-28-2021 History of Present illness Narrative Chief [...] and ankle. No acute osseous abnormality identified. Customer Experience Specialist: BRITTANY Transcribe Date/Time: Jun 28 2021 3:15P Dictated by : ANIYAH CARTER MD This examination was interpreted and the report reviewed and electronically signed by: ANIAYH CARTER MD on Jun 28 2021 3:17PM [...] Yosef Whitaker MD documented in this encounter [facility] documented as of this encounter (statuses as of 08/29/2021) [place] [id number] History of Past illness Narrative* Problem Noted Date Resolved Date MEDIASTINAL SHIFT 07/04/2005 05/01/2007 documented as of this encounter (statuses as of 08/31/2021) [address] History of Past illness Narrative* Problem Noted Date Resolved Date MEDIASTINAL SHIFT 07/04/2005 05/01/2007 documented as of this encounter (statuses as of 09/05/2021) [address] History of Past illness Narrative* Problem Noted Date Resolved Date MEDIASTINAL SHIFT 07/04/2005 05/01/2007 documented as of this encounter (statuses as of 09/26/2021) [address] History of Past illness Narrative* Problem Noted Date Resolved Date MEDIASTINAL SHIFT 07/04/2005 05/01/2007 documented as of this encounter (statuses as of 10/09/2021) [address] History of Past illness Narrative* Problem Noted Date Resolved Date MEDIASTINAL SHIFT 07/04/2005 05/01/2007 documented as of this encounter (statuses as of 10/10/2021) [address] History of Past illness Narrative* Problem Noted Date Resolved Date MEDIASTINAL SHIFT 07/04/2005 05/01/2007 documented as of this encounter (statuses as of 10/16/2021) [address] History of Past illness Narrative* Problem Noted Date Resolved Date MEDIASTINAL SHIFT 07/04/2005 05/01/2007 documented as of this encounter (statuses as of 10/19/2021) [address] History of Past illness Narrative* Problem Noted Date Resolved Date MEDIASTINAL SHIFT 07/04/2005 05/01/2007 documented as of this encounter (statuses as of 10/27/2021) [address] History of Past illness Narrative* Problem Noted Date Resolved Date MEDIASTINAL SHIFT 07/04/2005 05/01/2007 documented as of this encounter (statuses as of 10/30/2021) [address] History of Past illness Narrative* Problem Noted Date Resolved Date MEDIASTINAL SHIFT 07/04/2005 05/01/2007 documented as of this encounter (statuses as of 11/29/2021) [address] History of Past illness Narrative* Problem Noted Date Resolved Date MEDIASTINAL SHIFT 07/04/2005 05/01/2007 documented as of this encounter (statuses as of 12/20/2021) [address] History of Past illness Narrative* Problem Noted Date Resolved Date MEDIASTINAL SHIFT 07/04/2005 05/01/2007 documented as of this encounter (statuses as of 01/02/2022) [address] History of Past illness Narrative* Problem Noted Date Resolved Date MEDIASTINAL SHIFT 07/04/2005 05/01/2007 documented as of this encounter (statuses as of 01/02/2022) [address] History of Past illness Narrative* Problem Noted Date Resolved Date MEDIASTINAL SHIFT 07/04/2005 05/01/2007 documented as of this encounter (statuses as of 01/03/2022) [address] History of Past illness Narrative* Problem Noted Date Resolved Date MEDIASTINAL SHIFT 07/04/2005 05/01/2007 documented as of this encounter (statuses as of 01/22/2022) [address] History of Past illness Narrative* Problem Noted Date Resolved Date MEDIASTINAL SHIFT 07/04/2005 05/01/2007 documented as of this encounter (statuses as of 02/01/2022) [address] History of Past illness Narrative* Problem Noted Date Resolved Date MEDIASTINAL SHIFT 07/04/2005 05/01/2007 documented as of this encounter (statuses as of 02/10/2022) [address] History of Past illness Narrative* Problem Noted Date Resolved Date MEDIASTINAL SHIFT 07/04/2005 05/01/2007 documented as of this encounter (statuses as of 03/12/2022) [address] History of Past illness Narrative* Problem Noted Date Resolved Date MEDIASTINAL SHIFT 07/04/2005 05/01/2007 documented as of this encounter (statuses as of 04/26/2022) [address] History of Past illness Narrative* Problem Noted Date Resolved Date MEDIASTINAL SHIFT 07/04/2005 05/01/2007 documented as of this encounter (statuses as of 04/26/2022) [address] History of Past illness Narrative* Problem Noted Date Resolved Date MEDIASTINAL SHIFT 07/04/2005 05/01/2007 documented as of this encounter (statuses as of 04/28/2022) [address] History of Past illness Narrative* Problem Noted Date Resolved Date MEDIASTINAL SHIFT 07/04/2005 05/01/2007 documented as of this encounter (statuses as of 05/01/2022) [address] History of Past illness Narrative* Problem Noted Date Resolved Date MEDIASTINAL SHIFT 07/04/2005 05/01/2007 documented as of this encounter (statuses as of 05/07/2022) [address] History of Past illness Narrative* Problem Noted Date Resolved Date MEDIASTINAL SHIFT 07/04/2005 05/01/2007 documented as of this encounter (statuses as of 05/17/2022) [address] History of Past illness Narrative* Problem Noted Date Resolved Date MEDIASTINAL SHIFT 07/04/2005 05/01/2007 documented as of this encounter (statuses as of 05/17/2022) [address] History of Past illness Narrative* Problem Noted Date Resolved Date MEDIASTINAL SHIFT 07/04/2005 05/01/2007 documented as of this encounter (statuses as of 05/18/2022) [address] History of Past illness Narrative* Problem Noted Date Resolved Date MEDIASTINAL SHIFT 07/04/2005 05/01/2007 documented as of this encounter (statuses as of 06/01/2022) [address] History of Past illness Narrative* Problem Noted Date Resolved Date MEDIASTINAL SHIFT 07/04/2005 05/01/2007 documented as of this encounter (statuses as of 06/11/2022) [address] History of Past illness Narrative* Problem Noted Date Resolved Date MEDIASTINAL SHIFT 07/04/2005 05/01/2007 documented as of this encounter (statuses as of 06/13/2022) [address] History of Past illness Narrative* Problem Noted Date Resolved Date MEDIASTINAL SHIFT 07/04/2005 05/01/2007 documented as of this encounter (statuses as of 06/17/2022) [address] History of Past illness Narrative* Problem Noted Date Resolved Date MEDIASTINAL SHIFT 07/04/2005 05/01/2007 documented as of this encounter (statuses as of 06/18/2022) [address] History of Past illness Narrative* Problem Noted Date Resolved Date MEDIASTINAL SHIFT 07/04/2005 05/01/2007 documented as of this encounter (statuses as of 06/21/2022) [address] History of Past illness Narrative* Problem Noted Date Resolved Date MEDIASTINAL SHIFT 07/04/2005 05/01/2007 documented as of this encounter (statuses as of 06/26/2022) [address] History of Past illness Narrative* Problem Noted Date Resolved Date MEDIASTINAL SHIFT 07/04/2005 05/01/2007 documented as of this encounter (statuses as of 06/28/2022) [address] History of Past illness Narrative* Problem Noted Date Resolved Date MEDIASTINAL SHIFT 07/04/2005 05/01/2007 documented as of this encounter (statuses as of 06/28/2022) [address] History of Past illness Narrative* Problem Noted Date Resolved Date MEDIASTINAL SHIFT 07/04/2005 05/01/2007 documented as of this encounter (statuses as of 06/29/2022) [address] History of Past illness Narrative* Problem Noted Date Resolved Date MEDIASTINAL SHIFT 07/04/2005 05/01/2007 documented as of this encounter (statuses as of 06/29/2022) [address] History of Past illness Narrative* Problem Noted Date Resolved Date MEDIASTINAL SHIFT 07/04/2005 05/01/2007 documented as of this encounter (statuses as of 07/03/2022) [address] History of Past illness Narrative* Problem Noted Date Resolved Date MEDIASTINAL SHIFT 07/04/2005 05/01/2007 documented as of this encounter (statuses as of 07/03/2022) [address] History of Past illness Narrative* Problem Noted Date Resolved Date MEDIASTINAL SHIFT 07/04/2005 05/01/2007 documented as of this encounter (statuses as of 07/05/2022) [address] History of Past illness Narrative* Problem Noted Date Resolved Date MEDIASTINAL SHIFT 07/04/2005 05/01/2007 documented as of this encounter (statuses as of 07/06/2022) [address] History of Past illness Narrative* Problem Noted Date Resolved Date MEDIASTINAL SHIFT 07/04/2005 05/01/2007 documented as of this encounter (statuses as of 07/10/2022) [address] History of Past illness Narrative* Problem Noted Date Resolved Date MEDIASTINAL SHIFT 07/04/2005 05/01/2007 documented as of this encounter (statuses as of 2022) [address] History of Past illness Narrative* Problem Noted Date Resolved Date MEDIASTINAL SHIFT 07/04/2005 05/01/2007 documented as of this encounter (statuses as of 07/27/2022) [address] History of Past illness Narrative* Problem Noted Date Resolved Date MEDIASTINAL SHIFT 07/04/2005 05/01/2007 documented as of this encounter (statuses as of 07/31/2022) [address] History of Past illness Narrative* Problem Noted Date Resolved Date MEDIASTINAL SHIFT 07/04/2005 05/01/2007 documented as of this encounter (statuses as of 08/03/2022) [address] History of Past illness Narrative* Problem Noted Date Resolved Date MEDIASTINAL SHIFT 07/04/2005 05/01/2007 documented as of this encounter (statuses as of 08/13/2022) [address] History of Past illness Narrative* Problem Noted Date Resolved Date MEDIASTINAL SHIFT 07/04/2005 05/01/2007 documented as of this encounter (statuses as of 08/15/2022) [address] History of Past illness Narrative* Problem Noted Date Resolved Date MEDIASTINAL SHIFT 07/04/2005 05/01/2007 documented as of this encounter (statuses as of 08/16/2022) [address] History of Past illness Narrative* Problem Noted Date Resolved Date MEDIASTINAL SHIFT 07/04/2005 05/01/2007 documented as of this encounter (statuses as of 08/16/2022) [address] History of Past illness Narrative* Problem Noted Date Resolved Date MEDIASTINAL SHIFT 07/04/2005 05/01/2007 documented as of this encounter (statuses as of 08/27/2022) [address] History of Past illness Narrative* Problem Noted Date Resolved Date MEDIASTINAL SHIFT 07/04/2005 05/01/2007 documented as of this encounter (statuses as of 09/05/2022) [address] History of Past illness Narrative* Problem Noted Date Resolved Date MEDIASTINAL SHIFT 07/04/2005 05/01/2007 documented as of this encounter (statuses as of 09/20/2022) [address] History of Past illness Narrative* Problem Noted Date Resolved Date MEDIASTINAL SHIFT 07/04/2005 05/01/2007 documented as of this encounter (statuses as of 10/05/2022) [address] History of Past illness Narrative* Problem Noted Date Resolved Date MEDIASTINAL SHIFT 07/04/2005 05/01/2007 documented as of this encounter (statuses as of 10/05/2022) [address] History of Past illness Narrative* Problem Noted Date Resolved Date MEDIASTINAL SHIFT 07/04/2005 05/01/2007 documented as of this encounter (statuses as of 10/09/2022) [address] History of Past illness Narrative* Problem Noted Date Resolved Date MEDIASTINAL SHIFT 07/04/2005 05/01/2007 documented as of this encounter (statuses as of 10/10/2022) [address] History of Past illness Narrative* Problem Noted Date Resolved Date MEDIASTINAL SHIFT 07/04/2005 05/01/2007 documented as of this encounter (statuses as of 10/12/2022) [address] History of Past illness Narrative* Problem Noted Date Resolved Date MEDIASTINAL SHIFT 07/04/2005 05/01/2007 documented as of this encounter (statuses as of 10/16/2022) [address] History of Past illness Narrative* Problem Noted Date Resolved Date MEDIASTINAL SHIFT 07/04/2005 05/01/2007 documented as of this encounter (statuses as of 10/17/2022) [address] History of Past illness Narrative* Problem Noted Date Resolved Date MEDIASTINAL SHIFT 07/04/2005 05/01/2007 documented as of this encounter (statuses as of 10/18/2022) [address] History of Past illness Narrative* Problem Noted Date Resolved Date MEDIASTINAL SHIFT 07/04/2005 05/01/2007 documented as of this encounter (statuses as of 10/20/2022) [address] History of Past illness Narrative* Problem Noted Date Resolved Date MEDIASTINAL SHIFT 07/04/2005 05/01/2007 documented as of this encounter (statuses as of 10/25/2022) [address] History of Past illness Narrative* Problem Noted Date Resolved Date MEDIASTINAL SHIFT 07/04/2005 05/01/2007 documented as of this encounter (statuses as of 10/26/2022) [address] History of Past illness Narrative* Problem Noted Date Diagnosed Date Resolved Date MEDIASTINAL SHIFT 07/04/2005 05/01/2007 documented as of this encounter (statuses as of 10/30/2022) [address] History of Past illness Narrative* Problem Noted Date Diagnosed Date Resolved Date MEDIASTINAL SHIFT 07/04/2005 05/01/2007 documented as of this encounter (statuses as of 10/31/2022) [address] History of Past illness Narrative* Problem Noted Date Diagnosed Date Resolved Date MEDIASTINAL SHIFT 07/04/2005 05/01/2007 documented as of this encounter (statuses as of 11/14/2022) [address] History of Past illness Narrative* Problem Noted Date Diagnosed Date Resolved Date MEDIASTINAL SHIFT 07/04/2005 05/01/2007 documented as of this encounter (statuses as of 11/15/2022) [address] History of Past illness Narrative* Problem Noted Date Diagnosed Date Resolved Date MEDIASTINAL SHIFT 07/04/2005 05/01/2007 documented as of this encounter (statuses as of 11/15/2022) [address] History of Past illness Narrative* Problem Noted Date Diagnosed Date Resolved Date MEDIASTINAL SHIFT 07/04/2005 05/01/2007 documented as of this encounter (statuses as of 11/22/2022) [address] History of Past illness Narrative* Problem Noted Date Diagnosed Date Resolved Date MEDIASTINAL SHIFT 07/04/2005 05/01/2007 documented as of this encounter (statuses as of 11/29/2022) [address] History of Past illness Narrative* Problem Noted Date Diagnosed Date Resolved Date MEDIASTINAL SHIFT 07/04/2005 05/01/2007 documented as of this encounter (statuses as of 12/06/2022) [address] History of Past illness Narrative* Problem Noted Date Diagnosed Date Resolved Date MEDIASTINAL SHIFT 07/04/2005 05/01/2007 documented as of this encounter (statuses as of 02/05/2023) [address] History of Past illness Narrative* Problem Noted Date Diagnosed Date Resolved Date MEDIASTINAL SHIFT 07/04/2005 05/01/2007 documented as of this encounter (statuses as of 02/07/2023) [address] History of Past illness Narrative* Problem Noted Date Diagnosed Date Resolved Date MEDIASTINAL SHIFT 07/04/2005 05/01/2007 documented as of this encounter (statuses as of 02/08/2023) [address] History of Past illness Narrative* Problem Noted Date Diagnosed Date Resolved Date MEDIASTINAL SHIFT 07/04/2005 05/01/2007 documented as of this encounter (statuses as of 02/13/2023) [address] History of Past illness Narrative* Problem Noted Date Diagnosed Date Resolved Date MEDIASTINAL SHIFT 07/04/2005 05/01/2007 documented as of this encounter (statuses as of 02/18/2023) [address] History of Past illness Narrative* Problem Noted Date Diagnosed Date Resolved Date MEDIASTINAL SHIFT 07/04/2005 05/01/2007 documented as of this encounter (statuses as of 02/19/2023) [address] History of Past illness Narrative* Problem Noted Date Diagnosed Date Resolved Date MEDIASTINAL SHIFT 07/04/2005 05/01/2007 documented as of this encounter (statuses as of 02/20/2023) [address] History of Past illness Narrative* Problem Noted Date Diagnosed Date Resolved Date MEDIASTINAL SHIFT 07/04/2005 05/01/2007 documented as of this encounter (statuses as of 02/24/2023) [address] History of Past illness Narrative* Problem Noted Date Diagnosed Date Resolved Date MEDIASTINAL SHIFT 07/04/2005 05/01/2007 documented as of this encounter (statuses as of 02/24/2023) [address] History of Past illness Narrative* Problem Noted Date Diagnosed Date Resolved Date MEDIASTINAL SHIFT 07/04/2005 05/01/2007 documented as of this encounter (statuses as of 02/24/2023) [address] History of Past illness Narrative* Problem Noted Date Diagnosed Date Resolved Date MEDIASTINAL SHIFT 07/04/2005 05/01/2007 documented as of this encounter (statuses as of 03/13/2023) [facility] History of Past illness Narrative* Problem Noted Date Diagnosed Date Resolved Date MEDIASTINAL SHIFT 07/04/2005 05/01/2007 documented as of this encounter (statuses as of 05/24/2023) [facility] note* Diagnosis Bilateral leg edema- Primary Edema Left ankle pain, unspecified chronicity Obesity, Class II, BMI 35-39.9 Obesity, unspecified Right hip pain Pain in joint, pelvic region and thigh documented in this [facility] Diagnosis Right hip pain- Primary Pain in joint, pelvic region and thigh documented in this [facility] Diagnosis Neuropathy Mononeuritis of unspecified site documented in this [facility]* Diagnosis Encounter for immunization- Primary Need for other specified prophylactic vaccination against single bacterial disease [facility] Diagnosis Neoplasm of skin of penis- Primary documented in this [facility]* Diagnosis Dietary counseling- Primary Dietary surveillance and counseling Obesity, Class II, BMI 35-39.9 Obesity, unspecified Controlled type 2 diabetes mellitus without complication, without long-term current use of insulin ([facility]) Gastroesophageal reflux disease, unspecified whether esophagitis present Hypertension, unspecified type Hyperlipidemia, unspecified hyperlipidemia type documented in this encounter [facility]* Diagnosis Neoplasm of skin of penis- Primary [facility] Diagnosis Urge incontinence Type 2 diabetes mellitus with diabetic polyneuropathy, without long-term current use of insulin ([facility]) Essential hypertension, benign Neuropathy Mononeuritis of unspecified site documented in this [facility] Diagnosis Neuropathy Mononeuritis of unspecified site documented in this [facility]* Diagnosis Medicare annual wellness visit, subsequent- Primary Routine general medical examination at a health care facility Type 2 diabetes mellitus with diabetic polyneuropathy, without long-term current use of insulin (HCC) Diabetic eye exam ([facility]) Type II or unspecified type diabetes mellitus [...] unspecified single disease [facility] Diagnosis Essential hypertension, benign- Primary Mixed hyperlipidemia Type 2 diabetes mellitus with diabetic polyneuropathy, without long-term current use of insulin (HCC) [facility] Diagnosis Anemia, unspecified type- Primary Renal insufficiency Unspecified disorder of kidney and ureter Elevated PSA Elevated prostate specific antigen (PSA) [facility]* Diagnosis Stage 3a chronic kidney disease (HCC) [facility]* Diagnosis Neuropathy Mononeuritis of unspecified site [facility]* Diagnosis Neuropathy Mononeuritis of unspecified site [facility]* Diagnosis Type 2 diabetes mellitus with diabetic polyneuropathy, without long-term current use of insulin (HCC) Essential hypertension, benign Neuropathy Mononeuritis of unspecified site [facility]* Diagnosis Shuffling gait- Primary Abnormality of gait Memory difficulties Memory loss Chronic bilateral low back pain without sciatica Urge incontinence [facility]* Diagnosis Obstructive sleep apnea syndrome- Primary Obstructive sleep apnea (adult) (pediatric) [facility]* Diagnosis Spinal stenosis of lumbar region, unspecified whether neurogenic claudication present- Primary [facility]* Diagnosis Obstructive sleep apnea syndrome- Primary Obstructive sleep apnea (adult) (pediatric) [facility]* Diagnosis Memory loss- Primary Shuffling gait Abnormality of gait Spinal stenosis of lumbar region, unspecified whether neurogenic claudication present- Primary [facility]* Diagnosis Spinal stenosis of lumbar region, unspecified whether neurogenic claudication present- Primary [facility]* Diagnosis Urge incontinence [facility]* Diagnosis Essential hypertension, benign documented in this encounter [facility]* Diagnosis Cognitive changes- Primary Other signs and symptoms involving cognition [facility] Diagnosis Spinal stenosis, lumbar region, without neurogenic claudication- Primary Spinal stenosis, lumbar region, without neurogenic claudication [facility] this [facility]* Diagnosis Pre-operative clearance- Primary Preoperative examination, unspecified Spinal stenosis, lumbar region, without neurogenic claudication documented in this encounter [facility] Diagnosis Pre-op exam- Primary Preoperative [...] without neurogenic claudication documented [facility] this [facility]* Diagnosis Pre-op exam Preoperative examination, unspecified Spinal stenosis, lumbar region, without neurogenic claudication documented in this [facility] Diagnosis Pre-operative cardiovascular examination- Primary Spinal stenosis, unspecified spinal region Essential hypertension, benign Other hyperlipidemia Quit using tobacco in remote past Encounter for other preprocedural examination FUAD (obstructive sleep apnea) Obstructive sleep apnea (adult) (pediatric) Spinal stenosis, lumbar region, without neurogenic claudication documented in this encounter [facility]* Diagnosis Encounter for other preprocedural examination Spinal stenosis, lumbar region, without neurogenic claudication documented in this encounter [facility]* Diagnosis Pre-operative clearance- Primary Preoperative examination, unspecified Spinal stenosis of lumbar region, unspecified whether neurogenic claudication present Type 2 diabetes mellitus with diabetic polyneuropathy, without long-term current use of insulin (HCC) Essential hypertension, benign Stage 3a chronic kidney disease (HCC) Spinal stenosis, lumbar region, without neurogenic claudication documented in this encounter [facility]* Diagnosis S/P laminectomy- Primary Other postprocedural status documented in this encounter [facility]* Diagnosis Neuropathy Mononeuritis of unspecified site documented in this encounter [facility]* Diagnosis Mixed hyperlipidemia- Primary Type 2 diabetes mellitus with diabetic polyneuropathy, without long-term current use of insulin ([facility]) Essential hypertension, benign Stage 3a chronic kidney disease ([facility]) Fatigue, unspecified type [facility]* Diagnosis Type 2 diabetes mellitus with diabetic polyneuropathy, without long-term current use of insulin ([facility])- Primary Diabetic eye exam ([facility]) Type II or unspecified type diabetes mellitus [...] of other medications [facility]* Diagnosis Obstructive sleep apnea syndrome- Primary Obstructive sleep apnea (adult) (pediatric) [facility]* Diagnosis S/P laminectomy- Primary Other postprocedural status Spinal stenosis of lumbar region, unspecified whether neurogenic claudication present [facility]* Diagnosis Lightheadedness- Primary Dizziness and giddiness Vertigo Dizziness and giddiness Dizziness Dizziness and giddiness Orthostatic hypotension [facility]* Diagnosis Bilateral carotid artery stenosis Occlusion and stenosis of carotid artery without mention of cerebral infarction [facility]* Diagnosis Spinal stenosis, lumbar region without neurogenic claudication- Primary S/P laminectomy Other postprocedural status [facility]* Diagnosis Vertigo- Primary Dizziness and giddiness [facility]* Diagnosis Vertigo- Primary Dizziness and giddiness Dizziness Dizziness and giddiness documented [facility]* Diagnosis Spinal stenosis, lumbar region without neurogenic claudication- Primary S/P laminectomy Other postprocedural status [facility]* Diagnosis Right hip pain- Primary Pain in joint, pelvic region and thigh Acute pain of right knee documented [facility] this encounter [facility]* Diagnosis Spinal stenosis of lumbar region, unspecified whether neurogenic claudication present- Primary documented in this [facility]* Diagnosis Acute pain of right knee- Primary DDD (degenerative disc disease), lumbar Degeneration of lumbar or lumbosacral intervertebral disc documented in this encounter [facility]* Diagnosis Right hip pain- Primary Pain in joint, pelvic region and thigh Acute pain of right knee documented in this [facility] Diagnosis Right hip pain- Primary Pain in joint, pelvic region and thigh Acute pain of right knee Spinal stenosis, lumbar region without neurogenic claudication S/P laminectomy Other postprocedural status documented in this encounter [facility]* Diagnosis Right hip pain- Primary Pain in joint, pelvic region and thigh Acute pain of right knee [facility]* Diagnosis Right hip pain- Primary Pain in joint, pelvic region and thigh Acute pain of right knee Spinal stenosis, lumbar region without neurogenic claudication S/P laminectomy Other postprocedural status documented in this encounter [facility]* Diagnosis Essential hypertension, benign documented in this encounter [facility]* Diagnosis Type 2 diabetes mellitus with diabetic polyneuropathy, without long-term current use of insulin ([facility]) Urge incontinence Essential hypertension, benign documented in this encounter [facility]* Diagnosis Right hip pain- Primary Pain in joint, pelvic region and thigh Acute pain of right knee Spinal stenosis, lumbar region without neurogenic claudication S/P laminectomy Other postprocedural status documented in this encounter [facility]* Diagnosis Right hip pain- Primary Pain in joint, pelvic region and thigh Acute pain of right knee Spinal stenosis, lumbar region without neurogenic claudication S/P laminectomy Other postprocedural status documented in this encounter [facility]* Diagnosis Right hip pain- Primary Pain in joint, pelvic region and thigh Acute pain of right knee Spinal stenosis, lumbar region without neurogenic claudication S/P laminectomy Other postprocedural status [facility] Diagnosis Diabetic eye exam (HCC) Type II or unspecified type diabetes mellitus without mention of complication, not stated as uncontrolled documented in this encounter [facility]* Diagnosis Neuropathy Mononeuritis of unspecified site [facility] Diagnosis Type 2 diabetes mellitus with diabetic polyneuropathy, without long-term current use of insulin (HCC)- Primary Other hyperlipidemia Essential hypertension, benign [facility] Diagnosis Abnormality of gait- Primary [facility] Diagnosis Memory difficulties- Primary Memory loss Spinal stenosis of lumbar region, unspecified whether neurogenic claudication present Encounter for immunization- Primary Need for other specified prophylactic vaccination against single bacterial disease [facility] Diagnosis Medicare annual wellness visit, subsequent- Primary Routine general medical examination at a [facility] facility Type 2 diabetes mellitus with diabetic polyneuropathy, without long-term current use of insulin (HCC) Diabetic eye exam ([facility]) Type II or unspecified type diabetes mellitus [...] of magnesium metabolism [facility] Diagnosis Memory difficulties Memory loss Shuffling gait Abnormality of gait [facility] Diagnosis Shuffling gait Abnormality of gait Chronic bilateral low back pain without sciatica Urge incontinence [facility] Diagnosis Essential hypertension, benign- Primary [facility] Diagnosis Hemiparesis affecting left side as late effect of cerebrovascular accident (HCC)- Primary Hemiplegia affecting unspecified side, late effect of cerebrovascular disease documented in this encounter [facility] for referral (narrative)* Outpatient Procedure (Routine) - Closed Specialty Diagnoses / Procedures Referred By Claus t Referred To [facility] Diagnoses Pre-op exam Procedures ECG COMPLETE ECG ROUTINE ECG W/LEAST 12 LDS W/I&R Basilia Wynn, ALFREDO.W[employer] 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 [address] [place] [address] [facility] [place] [address] [place] [address] Referral ID Status Reason Start Date Expiration Date V isits Requested Visits Authorized [id number] Closed Auto-Generate d Referral 06/28/2022 06/28/2023 1 1 [facility] for referral (narrative)* Diagnostic Procedure Only (Routine) - Authorized Specialty Diagnoses / Procedures Referred By Contac t Referred To Contact [facility] Diagnoses Encounter for other preprocedural examination Procedures NM CARDIAC PERF STRESS/PHARM MYOCARDIAL SPECT MULTIPLE STUDIES Kim Alonzo MD [address] [place] [address] [facility] [address] [id number] Referral ID Status Reason Start Date Expiration Date Visits Requested Visits Authorized [id number] Authorized Auto-Generat ed Referral 06/29/2022 07/29/2023 1 1 [facility] for referral (narrative)* Diagnostic Procedure Only (Routine) - Closed Specialty Diagnoses / Procedures Referred By Contac t Referred To Contact [facility] Diagnoses Encounter for other preprocedural examination Procedures NM CARDIAC PERF STRESS/PHARM MYOCARDIAL SPECT MULTIPLE STUDIES Kim Alonzo MD [address] [place] [address] [facility] [address] [id number] Referral ID Status Reason Start Date Expiration Date V isits Requested Visits Authorized [id number] Closed Auto-Generate d Referral 06/29/2022 07/29/2023 1 1 [facility] Outpatient Procedure (Routine) - Pending Review Specialty Diagnoses / Procedures Referred By Contac t Referred To Contact [facility] [place] Diagnoses Lightheadedness Dizziness Orthostatic hypotension Procedures US CAROTID ARTERIES DAMARIS VAS LAB DUPLEX SCAN EXTRACRANIAL ART COMPL BI STUDY Lola Romo PA-C [address] [place] [address] [facility] [address] [address] Referral ID Status Reason Start Date Expiration Date Visits Requested Visits Authorized [id number] Pending Review Auto-Generat ed Referral 09/05/2022 09/05/2023 1 1 * Physical Therapy (Routine) - Pending Review Specialty Diagnoses / Procedures Referred By Contac t Referred To Contact [facility] Diagnoses Vertigo Procedures CONSULT TO PHYSICAL THERAPY PHYSICAL THERAPY EVALUATION HIGH COMPLEX 45 MINS Lola Romo PA-C [address] [place] [address] [facility] [address] [address] Referral ID Status Reason Start Date Expiration Date Visits Requested Visits Authorized [id number] Pending Review Auto-Generat ed Referral 09/05/2022 09/05/2023 1 1 * Outpatient Procedure (Routine) - Authorized Specialty Diagnoses / Procedures Referred By Contac t Referred To Contact [facility] Diagnoses Lightheadedness Dizziness Orthostatic hypotension Procedures ECHO ECHO TTHRC R-T 2D W/WOM-MODE COMPL SPEC&COLR D Lola Romo PA-C [address] [place] [address] [address] Referral ID Status Reason Start Date Expiration Date Visits Requested Visits Authorized [id number] Authorized Auto-Generat ed Referral 09/05/2022 09/05/2023 1 1 [facility] Diagnostic Procedure Only (Routine) - Closed Specialty Diagnoses / Procedures Referred By Claus reyes Referred To Contact [facility] Diagnoses Encounter for other preprocedural examination Procedures NM CARDIAC PERF STRESS/PHARM MYOCARDIAL SPECT MULTIPLE STUDIES Kim Alonzo MD [address] [facility] [place] [address] [place] [address] [facility] [address] [id number] Referral ID Status Reason Start Date Expiration Date V isits Requested Visits Authorized [id number] Closed Auto-Generate d Referral 06/29/2022 07/29/2023 1 1 [facility] Reason for Referral Specialty Diagnoses / Procedures Referred By Claus reyes Referred To Contact Nutrition Diagnoses Obesity, Class II, BMI 35-39.9 Procedures CONSULT TO NUTRITION THERAPY OFFICE/OUTPATIENT [facility] MDM 60-74 MINUTES Yosef Whitaker MD [address] [place] [id number] Referral ID Status Reason Start Date Expiration Date Visits Requested Visits Authorized [id number] Pending Review PCP Requested Referral 08/28/2021 08/28/2022 1 1 Specialty Diagnoses / Procedures Referred By Claus reyes Referred To Contact [facility] Diagnoses Right hip pain Procedures CONSULT TO PHYSICAL THERAPY PHYSICAL THERAPY EVALUATION HIGH COMPLEX 45 MINS Yosef Whitaker MD [address] [place] [address] [facility] [place] [address] [place] [address] Referral ID Status Reason Start Date Expiration Date Visits Requested Visits Authorized [id number] Pending Review Auto-Generat ed Referral 08/28/2021 08/28/2022 1 1 Specialty Diagnoses / Procedures Referred By Claus reyes Referred To Contact XR IMAGING Diagnoses Right hip pain Procedures XR HIP GENERAL 3V PELV/AP/LAT RIGHT RADEX HIP UNILATERAL WITH PELVIS 2-3 VIEWS Yosef Whitaker MD [address] [place] [address] Xr Imaging Referral ID Status Reason Start Date Expiration Date V isits Requested Visits Authorized [id number] Closed Auto-Generate d Referral 08/28/2021 09/27/2022 1 1 Specialty Diagnoses / Procedures Referred By Contac t Referred To Contact Urology Diagnoses Neoplasm of skin of penis Procedures CONSULT TO UROLOGY OFFICE/OUTPATIENT [facility] MDM 60-74 MINUTES Yosef Whitaker MD [address] [place] [address] Referral ID Status Reason Start Date Expiration Date Visits Requested Visits Authorized [id number] Pending Review PCP Requested Referral 10/06/2021 10/06/2022 1 1 Specialty Diagnoses / Procedures Referred By Contac t Referred To Contact CT IMAGING Diagnoses Memory difficulties Ataxia Urge incontinence Shuffling gait Dementia without behavioral disturbance, unspecified dementia type (HCC) Procedures CT BRAIN WO IVCON CT HEAD/BRAIN W/O CONTRAST MATERIAL Yosef Whitaker MD [address] [place] [address] Ct Imaging Referral ID Status Reason Start Date Expiration Date Visits Requested Visits Authorized [id number] Authorized Auto-Generat ed Referral 01/01/2022 01/31/2023 1 1 Specialty Diagnoses / Procedures Referred By Contac t Referred To Contact MR IMAGING Diagnoses Shuffling gait Chronic bilateral low back pain without sciatica Urge incontinence Procedures MRI LUMBAR SPINE WO IVCON MRI SPINAL CANAL LUMBAR W/O CONTRAST MATERIAL Margot Bravo MD [address] [facility] [place] [address] Mr Imaging Referral ID Status Reason Start Date Expiration Date Visits Requested Visits Authorized [id number] Authorized Auto-Generat ed Referral 03/28/2022 04/27/2023 1 1 Specialty Diagnoses / Procedures Referred By Contac t Referred To Contact MR IMAGING Diagnoses Memory difficulties Shuffling gait Procedures MRI BRAIN WO IVCON MRI BRAIN BRAIN STEM W/O CONTRAST MATERIAL Margot Bravo MD [address] [facility] [place] [address] Mr Imaging Referral ID Status Reason Start Date Expiration Date Visits Requested Visits Authorized [id number] Authorized Auto-Generat ed Referral 03/28/2022 04/27/2023 1 1 Specialty Diagnoses / Procedures Referred By Contac t Referred To Contact Diagnoses Obstructive sleep apnea syndrome Procedures CONSULT TO SLEEP MEDICINE - ADULT OFFICE/OUTPATIENT [facility] 60-74 MINUTES Yosef Whitaker MD [address] [place] [address] Referral ID Status Reason Start Date Expiration Date Visits Requested Visits Authorized [id number] Pending Review PCP Requested Referral 2 03/12/2023 1 1 Specialty Diagnoses / Procedures Referred By Contac t Referred To Contact Neurosurgery Diagnoses Spinal stenosis of lumbar region, unspecified whether neurogenic claudication present Procedures CONSULT TO NEUROSURGERY OFFICE/OUTPATIENT [facility] 60-74 MINUTES Margot Bravo MD [address] [facility] [place] [address] Referral ID Status Reason Start Date Expiration Date Visits Requested Visits Authorized [id number] Pending Review PCP Requested Referral 05/07/2022 05/07/2023 1 1 Specialty Diagnoses / Procedures Referred By Contac t Referred To Contact [facility] Diagnoses Spinal stenosis of lumbar region, unspecified whether neurogenic claudication present Procedures CONSULT TO PHYSICAL THERAPY PHYSICAL THERAPY EVALUATION HIGH COMPLEX 45 MINS Stephanie Simpson I, MD [address] [facility] [facility] [place] [place] [address] [facility] [place] [address] [place] [address] Referral ID Status Reason Start Date Expiration Date Visits Requested Visits Authorized [id number] Pending Review Auto-Generat ed Referral 06/11/2022 06/11/2023 1 1 Specialty Diagnoses / Procedures Referred By Contac t Referred To Contact XR IMAGING Diagnoses Spinal stenosis of lumbar region, unspecified whether neurogenic claudication present Procedures XR LUMBAR MOTION 4V AP/LAT/ FLEX/EXT RADEX SPINE LUMBOSACRAL MINIMUM 4 VIEWS Stephanie Simpson I, MD [address] [place] [address] Xr Imaging Referral ID Status Reason Start Date Expiration Date V isits Requested Visits Authorized [id number] Closed Auto-Generate d Referral 05/21/2022 06/20/2023 1 1 Specialty Diagnoses / Procedures Referred By Contac t Referred To Contact Cardiology Diagnoses Pre-operative clearance Procedures CONSULT TO CARDIOLOGY OFFICE/OUTPATIENT [facility] 60-74 MINUTES Stephanie Simpson I, MD [address] [place] [address] Referral ID Status Reason Start Date Expiration Date Visits Requested Visits Authorized [id number] Pending Review PCP Requested Referral 06/26/2022 06/26/2023 1 1 Specialty Diagnoses / Procedures Referred By Contac t Referred To Contact [facility] Diagnoses S/P laminectomy Spinal stenosis of lumbar region, unspecified whether neurogenic claudication present Procedures CONSULT TO PHYSICAL THERAPY PHYSICAL THERAPY EVALUATION HIGH COMPLEX 45 MINS Stephanie Simpson I, MD [address] [place] [address] [facility] [place] [id number] [place] [address] Referral ID Status Reason Start Date Expiration Date Visits Requested Visits Authorized [id number] Pending Review Auto-Generat ed Referral 08/27/2022 08/27/2023 1 1 Specialty Diagnoses / Procedures Referred By Contac t Referred To Contact [facility] Diagnoses Spinal stenosis, lumbar region without neurogenic claudication S/P laminectomy Vertigo Procedures PT REHAB FOLLOW UP ORDER THERAPEUTIC EXERCISES RE, EA 15 MIN. Nicole Matthew, PT [facility] [place] [address] [place] [address] Referral ID Status Reason Start Date Expiration Date Visits Requested Visits Authorized [id number] Pending Review PCP Requested Referral Auto-Generate d Referral 10/09/2022 01/07/2023 1 1 Specialty Diagnoses / Procedures Referred By Contac t Referred To Contact [facility] Diagnoses Right hip pain Acute pain of right knee Procedures CONSULT TO PHYSICAL THERAPY PHYSICAL THERAPY EVALUATION HIGH COMPLEX 45 MINS Richard Schmidt APRN.[facility] [address] [place] [address] [facility] [place] [address] [place] [address] Referral ID Status Reason Start Date Expiration Date Visits Requested Visits Authorized [id number] Pending Review Auto-Generat ed Referral 10/16/2022 10/16/2023 1 1 Specialty Diagnoses / Procedures Referred By Contac t Referred To Contact XR IMAGING Diagnoses Acute pain of right knee Procedures XR KNEE GENERAL 4V AP BOTH/PA BOTH/LAT/MERC RIGHT RADIOLOGIC EXAM KNEE COMPLETE 4/MORE VIEWS Richard Schmidt APRN.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 [address] [place] [address] Xr Imaging Referral ID Status Reason Start Date Expiration Date V isits Requested Visits Authorized [id number] Closed Auto-Generate d Referral 10/16/2022 11/15/2023 1 1 Specialty Diagnoses / Procedures Referred By Contac t Referred To Contact XR IMAGING Diagnoses Right hip pain Procedures XR HIP GENERAL 3V PELV/AP/LAT RIGHT RADEX HIP UNILATERAL WITH PELVIS 2-3 VIEWS Richard Schmidt, ALFREDO.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 [address] [place] [address] Xr Imaging Referral ID Status Reason Start Date Expiration Date V isits Requested Visits Authorized [id number] Closed Auto-Generate d Referral 10/16/2022 11/15/2023 1 1 Specialty Diagnoses / Procedures Referred By Contac t Referred To Contact Orthopedics Diagnoses Acute pain of right knee DDD (degenerative disc disease), lumbar Procedures CONSULT TO ORTHOPAEDICS Richard Schmidt, ALFREDO.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 [address] [place] [address] Bharath Hines Jr., [address] [address] Referral ID Status Reason Start Date Expiration Date Visits Requested Visits Authorized [id number] Ref Not Required PCP Requested Referral 10/18/2022 10/18/2023 1 1 Specialty Diagnoses / Procedures Referred By Contac t Referred To Contact MR IMAGING Diagnoses Memory difficulties Shuffling gait Procedures MRI BRAIN WO IVCON MRI BRAIN BRAIN STEM W/O CONTRAST MATERIAL Margot Bravo MD [address] [place] [address] [place] [address] Referral ID Status Reason Start Date Expiration Date V isits Requested Visits Authorized [id number] Closed Auto-Generate d Referral 03/28/2022 04/27/2023 1 1 Specialty Diagnoses / Procedures Referred By Contac t Referred To Contact MR IMAGING Diagnoses Shuffling gait Chronic bilateral low back pain without sciatica Urge incontinence Procedures MRI LUMBAR SPINE WO IVCON MRI SPINAL CANAL LUMBAR W/O CONTRAST MATERIAL Margot Bravo MD [address] [facility] [place] [address] [place] [address] Referral ID Status Reason Start Date Expiration Date V isits Requested Visits Authorized [id number] Closed Auto-Generate d Referral 03/28/2022 04/27/2023 1 1 Advance Directives No Advanced Directives Records FoundDocuments on File Type Date Recorded 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 Expl 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 Advance Directive(s) 05/16/2020 8:13 AM Advance Directive(s) 05/16/2020 8:28 AM Advance Directive(s) 05/09/2020 9:48 AM Advance Directive(s) 04/21/2020 9:38 AM Advance Directive(s) 07/29/2017 12:28 PM Advance Directive(s) 09/14/2016 8:23 AM Advance Directive(s) 05/23/2011 12:00 AM Advance Directive(s) 04/19/2008 8:05 PM Advance Directive(s) 06/06/2006 12:00 AM Documents on File Type Date Recorded 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 Expl anation Advance Directive(s) 05/16/2020 8:13 AM Advance Directive(s) 05/16/2020 8:28 AM Advance Directive(s) 05/09/2020 9:48 AM Advance Directive(s) 04/21/2020 9:38 AM Advance Directive(s) 07/29/2017 12:28 PM Advance Directive(s) 09/14/2016 8:23 AM Advance Directive(s) 05/23/2011 12:00 AM Advance Directive(s) 04/19/2008 8:05 PM Advance Directive(s) 06/06/2006 12:00 AM Documents on File Type Date Recorded 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 Expl anation Advance Directive(s) 05/23/2011 Advance Directive(s) 04/19/2008 8:05 PM Advance Directive(s) 06/06/2006 Documents on File Type Date Recorded 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 Expl anation Advance Directive(s) 05/23/2011 Advance Directive(s) 04/19/2008 8:05 PM Advance Directive(s) 06/06/2006 Documents on File Type Date Recorded 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 Expl anation Advance Directive(s) 07/02/2022 7:15 AM Advance Directive(s) 05/23/2011 Advance Directive(s) 04/19/2008 8:05 PM Advance Directive(s) 06/06/2006 Documents on File Type Date Recorded 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 Expl anation Advance Directive(s) 07/02/2022 7:15 AM Advance Directive(s) 05/23/2011 Documents on File Type Date Recorded 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 Expl anation Advance Directive(s) 07/02/2022 7:15 AM [...] or prosecute any alcohol or drug abuse patient.[facility] Center[facility] the event this information is protected by the Federal Confidentiality of Alcohol and Drug Abuse Patient Records regulations: The Federal rules restrict any use of the information to criminally investigate or prosecute any alcohol or drug abuse patient.[facility] CenterIn the event this information is protected by the Federal Confidentiality of Alcohol and Drug Abuse Patient Records regulations: The Federal rules restrict any use of the information to criminally investigate or prosecute any alcohol or drug abuse patient.[facility] CenterIn the event this information is protected by the Federal Confidentiality of Alcohol and Drug Abuse Patient Records regulations: The Federal rules restrict any use of the information to criminally investigate or prosecute any alcohol or drug abuse patient.[facility] CenterIn the event this information is protected by the Federal Confidentiality of Alcohol and Drug Abuse Patient Records regulations: The Federal rules restrict any use of the information to criminally investigate or prosecute any alcohol or drug abuse patient.[facility] CenterIn the event this information is protected by the Federal Confidentiality of Alcohol and Drug Abuse Patient Records regulations: The Federal rules restrict any use of the information to criminally investigate or prosecute any alcohol or drug abuse patient.[facility] CenterIn the event this information is protected by the Federal Confidentiality of Alcohol and Drug Abuse Patient Records regulations: The Federal rules restrict any use of the information to criminally investigate or prosecute any alcohol or drug abuse patient.[facility] CenterIn the event this information is protected by the Federal Confidentiality of Alcohol and Drug Abuse Patient Records regulations: The Federal rules restrict any use of the information to criminally investigate or prosecute any alcohol or drug abuse patient.[facility] CenterIn the event this information is protected by the Federal Confidentiality of Alcohol and Drug Abuse Patient Records regulations: The Federal rules restrict any use of the information to criminally investigate or prosecute any alcohol or drug abuse patient.[facility] CenterIn the event this information is protected by the Federal Confidentiality of Alcohol and Drug Abuse Patient Records regulations: The Federal rules restrict any use of the information to criminally investigate or prosecute any alcohol or drug abuse patient.[facility] the event this information is protected by the Federal Confidentiality of Alcohol and Drug Abuse Patient Records regulations: The Federal rules restrict any use of the information to criminally investigate or prosecute any alcohol or drug abuse patient.[facility] CenterIn the event this information is protected by the Federal Confidentiality of Alcohol and Drug Abuse Patient Records regulations: The Federal rules restrict any use of the information to criminally investigate or prosecute any alcohol or drug abuse patient.[facility] CenterIn the event this information is protected by the Federal Confidentiality of Alcohol and Drug Abuse Patient Records regulations: The Federal rules restrict any use of the information to criminally investigate or prosecute any alcohol or drug abuse patient.[facility] the event this information is protected by the Federal Confidentiality of Alcohol and Drug Abuse Patient Records regulations: The Federal rules restrict any use of the information to criminally investigate or prosecute any alcohol or drug abuse patient.[facility] CenterIn the event this information is protected by the Federal Confidentiality of Alcohol and Drug Abuse Patient Records regulations: The Federal rules restrict any use of the information to criminally investigate or prosecute any alcohol or drug abuse patient.[facility] CenterIn the event this information is protected by the Federal Confidentiality of Alcohol and Drug Abuse Patient Records regulations: The Federal rules restrict any use of the information to criminally investigate or prosecute any alcohol or drug abuse patient.[facility] CenterIn the event this information is protected by the Federal Confidentiality of Alcohol and Drug Abuse Patient Records regulations: The Federal rules restrict any use of the information to criminally investigate or prosecute any alcohol or drug abuse patient.[facility] CenterIn the event this information is protected by the Federal Confidentiality of Alcohol and Drug Abuse Patient Records regulations: The Federal rules restrict any use of the information to criminally investigate or prosecute any alcohol or drug abuse patient.[facility] CenterIn the event this information is protected by the Federal Confidentiality of Alcohol and Drug Abuse Patient Records regulations: The Federal rules restrict any use of the information to criminally investigate or prosecute any alcohol or drug abuse patient.[facility] CenterIn the event this information is protected by the Federal Confidentiality of Alcohol and Drug Abuse Patient Records regulations: The Federal rules restrict any use of the information to criminally investigate or prosecute any alcohol or drug abuse patient.[facility] CenterIn the event this information is protected by the Federal Confidentiality of Alcohol and Drug Abuse Patient Records regulations: The Federal rules restrict any use of the information to criminally investigate or prosecute any alcohol or drug abuse patient.[facility] CenterIn the event this information is protected by the Federal Confidentiality of Alcohol and Drug Abuse Patient Records regulations: The Federal rules restrict any use of the information to criminally investigate or prosecute any alcohol or drug abuse patient.[facility] CenterIn the event this information is protected by the Federal Confidentiality of Alcohol and Drug Abuse Patient Records regulations: The Federal rules restrict any use of the information to criminally investigate or prosecute any alcohol or drug abuse patient.[facility] CenterIn the event this information is protected by the Federal Confidentiality of Alcohol and Drug Abuse Patient Records regulations: The Federal rules restrict any use of the information to criminally investigate or prosecute any alcohol or drug abuse patient.[facility] CenterIn the event this information is protected by the Federal Confidentiality of Alcohol and Drug Abuse Patient Records regulations: The Federal rules restrict any use of the information to criminally investigate or prosecute any alcohol or drug abuse patient.[facility] CenterIn the event this information is protected by the Federal Confidentiality of Alcohol and Drug Abuse Patient Records regulations: The Federal rules restrict any use of the information to criminally investigate or prosecute any alcohol or drug abuse patient.[facility] CenterIn the event this information is protected by the Federal Confidentiality of Alcohol and Drug Abuse Patient Records regulations: The Federal rules restrict any use of the information to criminally investigate or prosecute any alcohol or drug abuse patient.[facility] CenterIn the event this information is protected by the Federal Confidentiality of Alcohol and Drug Abuse Patient Records regulations: The Federal rules restrict any use of the information to criminally investigate or prosecute any alcohol or drug abuse patient.[facility] CenterIn the event this information is protected by the Federal Confidentiality of Alcohol and Drug Abuse Patient Records regulations: The Federal rules restrict any use of the information to criminally investigate or prosecute any alcohol or drug abuse patient.[facility] CenterIn the event this information is protected by the Federal Confidentiality of Alcohol and Drug Abuse Patient Records regulations: The Federal rules restrict any use of the information to criminally investigate or prosecute any alcohol or drug abuse patient.[facility] CenterIn the event this information is protected by the Federal Confidentiality of Alcohol and Drug Abuse Patient Records regulations: The Federal rules restrict any use of the information to criminally investigate or prosecute any alcohol or drug abuse patient.[facility] CenterIn the event this information is protected by the Federal Confidentiality of Alcohol and Drug Abuse Patient Records regulations: The Federal rules restrict any use of the information to criminally investigate or prosecute any alcohol or drug abuse patient.[facility] CenterIn the event this information is protected by the Federal Confidentiality of Alcohol and Drug Abuse Patient Records regulations: The Federal rules restrict any use of the information to criminally investigate or prosecute any alcohol or drug abuse patient.[facility] CenterIn the event this information is protected by the Federal Confidentiality of Alcohol and Drug Abuse Patient Records regulations: The Federal rules restrict any use of the information to criminally investigate or prosecute any alcohol or drug abuse patient.[facility] CenterIn the event this information is protected by the Federal Confidentiality of Alcohol and Drug Abuse Patient Records regulations: The Federal rules restrict any use of the information to criminally investigate or prosecute any alcohol or drug abuse patient.[facility] CenterIn the event this information is protected by the Federal Confidentiality of Alcohol and Drug Abuse Patient Records regulations: The Federal rules restrict any use of the information to criminally investigate or prosecute any alcohol or drug abuse patient.[facility] CenterIn the event this information is protected by the Federal Confidentiality of Alcohol and Drug Abuse Patient Records regulations: The Federal rules restrict any use of the information to criminally investigate or prosecute any alcohol or drug abuse patient.[facility] CenterIn the event this information is protected by the Federal Confidentiality of Alcohol and Drug Abuse Patient Records regulations: The Federal rules restrict any use of the information to criminally investigate or prosecute any alcohol or drug abuse patient.[facility] CenterIn the event this information is protected by the Federal Confidentiality of Alcohol and Drug Abuse Patient Records regulations: The Federal rules restrict any use of the information to criminally investigate or prosecute any alcohol or drug abuse patient.[facility] CenterIn the event this information is protected by the Federal Confidentiality of Alcohol and Drug Abuse Patient Records regulations: The Federal rules restrict any use of the information to criminally investigate or prosecute any alcohol or drug abuse patient.[facility] CenterIn the event this information is protected by the Federal Confidentiality of Alcohol and Drug Abuse Patient Records regulations: The Federal rules restrict any use of the information to criminally investigate or prosecute any alcohol or drug abuse patient.[facility] CenterIn the event this information is protected by the Federal Confidentiality of Alcohol and Drug Abuse Patient Records regulations: The Federal rules restrict any use of the information to criminally investigate or prosecute any alcohol or drug abuse patient.[facility] CenterIn the event this information is protected by the Federal Confidentiality of Alcohol and Drug Abuse Patient Records regulations: The Federal rules restrict any use of the information to criminally investigate or prosecute any alcohol or drug abuse patient.[facility] CenterIn the event this information is protected by the Federal Confidentiality of Alcohol and Drug Abuse Patient Records regulations: The Federal rules restrict any use of the information to criminally investigate or prosecute any alcohol or drug abuse patient.[facility] CenterIn the event this information is protected by the Federal Confidentiality of Alcohol and Drug Abuse Patient Records regulations: The Federal rules restrict any use of the information to criminally investigate or prosecute any alcohol or drug abuse patient.[facility] CenterIn the event this information is protected by the Federal Confidentiality of Alcohol and Drug Abuse Patient Records regulations: The Federal rules restrict any use of the information to criminally investigate or prosecute any alcohol or drug abuse patient.[facility] CenterIn the event this information is protected by the Federal Confidentiality of Alcohol and Drug Abuse Patient Records regulations: The Federal rules restrict any use of the information to criminally investigate or prosecute any alcohol or drug abuse patient.[facility] CenterIn the event this information is protected by the Federal Confidentiality of Alcohol and Drug Abuse Patient Records regulations: The Federal rules restrict any use of the information to criminally investigate or prosecute any alcohol or drug abuse patient.[facility] CenterIn the event this information is protected by the Federal Confidentiality of Alcohol and Drug Abuse Patient Records regulations: The Federal rules restrict any use of the information to criminally investigate or prosecute any alcohol or drug abuse patient.[facility] CenterIn the event this information is protected by the Federal Confidentiality of Alcohol and Drug Abuse Patient Records regulations: The Federal rules restrict any use of the information to criminally investigate or prosecute any alcohol or drug abuse patient.[facility] CenterIn the event this information is protected by the Federal Confidentiality of Alcohol and Drug Abuse Patient Records regulations: The Federal rules restrict any use of the information to criminally investigate or prosecute any alcohol or drug abuse patient.[facility] CenterIn the event this information is protected by the Federal Confidentiality of Alcohol and Drug Abuse Patient Records regulations: The Federal rules restrict any use of the information to criminally investigate or prosecute any alcohol or drug abuse patient.[facility] CenterIn the event this information is protected by the Federal Confidentiality of Alcohol and Drug Abuse Patient Records regulations: The Federal rules restrict any use of the information to criminally investigate or prosecute any alcohol or drug abuse patient.[facility] CenterIn the event this information is protected by the Federal Confidentiality of Alcohol and Drug Abuse Patient Records regulations: The Federal rules restrict any use of the information to criminally investigate or prosecute any alcohol or drug abuse patient.[facility] CenterIn the event this information is protected by the Federal Confidentiality of Alcohol and Drug Abuse Patient Records regulations: The Federal rules restrict any use of the information to criminally investigate or prosecute any alcohol or drug abuse patient.[facility] CenterIn the event this information is protected by the Federal Confidentiality of Alcohol and Drug Abuse Patient Records regulations: The Federal rules restrict any use of the information to criminally investigate or prosecute any alcohol or drug abuse patient.[facility] CenterIn the event this information is protected by the Federal Confidentiality of Alcohol and Drug Abuse Patient Records regulations: The Federal rules restrict any use of the information to criminally investigate or prosecute any alcohol or drug abuse patient.[facility] CenterIn the event this information is protected by the Federal Confidentiality of Alcohol and Drug Abuse Patient Records regulations: The Federal rules restrict any use of the information to criminally investigate or prosecute any alcohol or drug abuse patient.[facility] CenterIn the event this information is protected by the Federal Confidentiality of Alcohol and Drug Abuse Patient Records regulations: The Federal rules restrict any use of the information to criminally investigate or prosecute any alcohol or drug abuse patient.[facility] CenterIn the event this information is protected by the Federal Confidentiality of Alcohol and Drug Abuse Patient Records regulations: The Federal rules restrict any use of the information to criminally investigate or prosecute any alcohol or drug abuse patient.[facility] the event this information is protected by the Federal Confidentiality of Alcohol and Drug Abuse Patient Records regulations: The Federal rules restrict any use of the information to criminally investigate or prosecute any alcohol or drug abuse patient.[facility] CenterIn the event this information is protected by the Federal Confidentiality of Alcohol and Drug Abuse Patient Records regulations: The Federal rules restrict any use of the information to criminally investigate or prosecute any alcohol or drug abuse patient.[facility] CenterIn the event this information is protected by the Federal Confidentiality of Alcohol and Drug Abuse Patient Records regulations: The Federal rules restrict any use of the information to criminally investigate or prosecute any alcohol or drug abuse patient.[facility] ClinicIn the event this information is protected by the Federal Confidentiality of Alcohol and Drug Abuse Patient Records regulations: The Federal rules restrict any use of the information to criminally investigate or prosecute any alcohol or drug abuse patient.[facility] CenterIn the event this information is protected by the Federal Confidentiality of Alcohol and Drug Abuse Patient Records regulations: The Federal rules restrict any use of the information to criminally investigate or prosecute any alcohol or drug abuse patient.[facility] CenterIn the event this information is protected by the Federal Confidentiality of Alcohol and Drug Abuse Patient Records regulations: The Federal rules restrict any use of the information to criminally investigate or prosecute any alcohol or drug abuse patient.[facility] CenterIn the event this information is protected by the Federal Confidentiality of Alcohol and Drug Abuse Patient Records regulations: The Federal rules restrict any use of the information to criminally investigate or prosecute any alcohol or drug abuse patient.[facility] CenterIn the event this information is protected by the Federal Confidentiality of Alcohol and Drug Abuse Patient Records regulations: The Federal rules restrict any use of the information to criminally investigate or prosecute any alcohol or drug abuse patient.[facility] CenterIn the event this information is protected by the Federal Confidentiality of Alcohol and Drug Abuse Patient Records regulations: The Federal rules restrict any use of the information to criminally investigate or prosecute any alcohol or drug abuse patient.[facility] CenterIn the event this information is protected by the Federal Confidentiality of Alcohol and Drug Abuse Patient Records regulations: The Federal rules restrict any use of the information to criminally investigate or prosecute any alcohol or drug abuse patient.[facility] CenterIn the event this information is protected by the Federal Confidentiality of Alcohol and Drug Abuse Patient Records regulations: The Federal rules restrict any use of the information to criminally investigate or prosecute any alcohol or drug abuse patient.[facility] CenterIn the event this information is protected by the Federal Confidentiality of Alcohol and Drug Abuse Patient Records regulations: The Federal rules restrict any use of the information to criminally investigate or prosecute any alcohol or drug abuse patient.[facility] CenterIn the event this information is protected by the Federal Confidentiality of Alcohol and Drug Abuse Patient Records regulations: The Federal rules restrict any use of the information to criminally investigate or prosecute any alcohol or drug abuse patient.[facility] CenterIn the event this information is protected by the Federal Confidentiality of Alcohol and Drug Abuse Patient Records regulations: The Federal rules restrict any use of the information to criminally investigate or prosecute any alcohol or drug abuse patient.[facility] CenterIn the event this information is protected by the Federal Confidentiality of Alcohol and Drug Abuse Patient Records regulations: The Federal rules restrict any use of the information to criminally investigate or prosecute any alcohol or drug abuse patient.[facility] CenterIn the event this information is protected by the Federal Confidentiality of Alcohol and Drug Abuse Patient Records regulations: The Federal rules restrict any use of the information to criminally investigate or prosecute any alcohol or drug abuse patient.[facility] CenterIn the event this information is protected by the Federal Confidentiality of Alcohol and Drug Abuse Patient Records regulations: The Federal rules restrict any use of the information to criminally investigate or prosecute any alcohol or drug abuse patient.[facility] CenterIn the event this information is protected by the Federal Confidentiality of Alcohol and Drug Abuse Patient Records regulations: The Federal rules restrict any use of the information to criminally investigate or prosecute any alcohol or drug abuse patient.[facility] CenterIn the event this information is protected by the Federal Confidentiality of Alcohol and Drug Abuse Patient Records regulations: The Federal rules restrict any use of the information to criminally investigate or prosecute any alcohol or drug abuse patient.[facility] CenterIn the event this information is protected by the Federal Confidentiality of Alcohol and Drug Abuse Patient Records regulations: The Federal rules restrict any use of the information to criminally investigate or prosecute any alcohol or drug abuse patient.[facility] CenterIn the event this information is protected by the Federal Confidentiality of Alcohol and Drug Abuse Patient Records regulations: The Federal rules restrict any use of the information to criminally investigate or prosecute any alcohol or drug abuse patient.[facility] CenterIn the event this information is protected by the Federal Confidentiality of Alcohol and Drug Abuse Patient Records regulations: The Federal rules restrict any use of the information to criminally investigate or prosecute any alcohol or drug abuse patient.[facility] CenterIn the event this information is protected by the Federal Confidentiality of Alcohol and Drug Abuse Patient Records regulations: The Federal rules restrict any use of the information to criminally investigate or prosecute any alcohol or drug abuse patient.[facility] CenterIn the event this information is protected by the Federal Confidentiality of Alcohol and Drug Abuse Patient Records regulations: The Federal rules restrict any use of the information to criminally investigate or prosecute any alcohol or drug abuse patient.[facility] CenterIn the event this information is protected by the Federal Confidentiality of Alcohol and Drug Abuse Patient Records regulations: The Federal rules restrict any use of the information to criminally investigate or prosecute any alcohol or drug abuse patient.[facility] CenterIn the event this information is protected by the Federal Confidentiality of Alcohol and Drug Abuse Patient Records regulations: The Federal rules restrict any use of the information to criminally investigate or prosecute any alcohol or drug abuse patient.[facility] CenterIn the event this information is protected by the Federal Confidentiality of Alcohol and Drug Abuse Patient Records regulations: The Federal rules restrict any use of the information to criminally investigate or prosecute any alcohol or drug abuse patient.[facility] CenterIn the event this information is protected by the Federal Confidentiality of Alcohol and Drug Abuse Patient Records regulations: The Federal rules restrict any use of the information to criminally investigate or prosecute any alcohol or drug abuse patient.[facility] CenterIn the event this information is protected by the Federal Confidentiality of Alcohol and Drug Abuse Patient Records regulations: The Federal rules restrict any use of the information to criminally investigate or prosecute any alcohol or drug abuse patient.[facility] Reason for Visit (unrecogniz ed section and content) Specialty Diagnoses / Procedures Referred By Contac t Referred To Contact MR IMAGING Diagnoses Cervical myelopathy (HCC) Procedures MRI CERVICAL SPINE WO IVCON MRI SPINAL CANAL CERVICAL W/O CONTRAST Stephanie Arndt I, MD [address] [place] [address] [place] [address] Referral ID Status Reason Start Date Expiration Date V isits Requested Visits Authorized [id number] Closed Auto-Generate d Referral 01/16/2023 02/15/2024 1 1 Reason Comments PT Discharge Physical Therapy Specialty Diagnoses / Procedures Referred By Contac t Referred To Contact PHYSICAL THERAPY Diagnoses S/P laminectomy Spinal stenosis of lumbar region, unspecified whether neurogenic claudication present Procedures CONSULT TO PHYSICAL THERAPY PHYSICAL THERAPY EVALUATION HIGH COMPLEX 45 MINS Stephanie Simpson I, MD [address] [place] [address] Pt [facility] [address] [address] Referral ID Status Reason Start Date Expiration Date V isits Requested Visits Authorized [id number] Authorized 04/22/2022 04/21/2023 99 99 Reason Comments [...] RE, EA 15 MIN. Yosef Whitaker MD [address] [place] [address] [facility] [place] [address] [place] [address] Referral ID Status Reason Start Date Expiration Date V isits Requested Visits Authorized [id number] Authorized 08/29/2021 04/21/2022 99 99 Reason Onset Date Comments Refill Request 09/04/2021 Refill Request 09/05/2021 Reason Comments Covid Vaccine Reason Comments LESION, SKIN Patient is here for sore Reason Comments Results Reason Comments Patient Education Assessment Specialty Diagnoses / Procedures Referred By Contac t Referred To Contact Nutrition Diagnoses Obesity, Class II, BMI 35-39.9 Procedures CONSULT TO NUTRITION THERAPY OFFICE/OUTPATIENT NEW HIGH MDM 60-74 MINUTES Yosef Whitaker MD [address] [place] [address] Referral ID Status Reason Start Date Expiration Date Visits Requested Visits Authorized [id number] Pending Review PCP Requested Referral 08/28/2021 08/28/2022 1 1 Reason Comments 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 Specialty Diagnoses / Procedures Referred By Contac t Referred To Contact Urology Diagnoses Neoplasm of skin of penis Procedures CONSULT TO UROLOGY OFFICE/OUTPATIENT [facility] 60-74 MINUTES Yosef Whitaker MD [address] [place] [address] Referral ID Status Reason Start Date Expiration Date Visits Requested Visits Authorized [id number] Pending Review PCP Requested Referral 10/06/2021 10/06/2022 [...] Shuffling gait Procedures CONSULT TO NEUROLOGY OFFICE/OUTPATIENT [facility] 60-74 MINUTES Yosef Whitaker MD [address] [place] [address] Referral ID Status Reason Start Date Expiration Date Visits Requested Visits Authorized [id number] Pending Review PCP Requested Referral 2 01/29/2023 1 1 Reason Comments Orders Reason Comments Results Reason Comments PAP Therapy Follow Up Reason Comments Follow Up Specialty Diagnoses / Procedures Referred By Contac t Referred To Contact Diagnoses Obstructive sleep apnea syndrome Procedures CONSULT TO SLEEP MEDICINE - ADULT OFFICE/OUTPATIENT [facility] 60-74 MINUTES Yosef Whitaker MD [address] [place] [address] Referral ID Status Reason Start Date Expiration Date Visits Requested Visits Authorized [id number] Pending Review PCP Requested Referral 2 03/12/2023 1 1 Reason Comments PAP Therapy Follow Up New device order a nd OV notes faxed to [facility] Reason Comments Neuropsych Testing Specialty Diagnoses / Procedures Referred By Contac t Referred To Contact PSYCHIATRY Diagnoses Other amnesia Procedures NEUROBEHAVIORAL STATUS XM PHYS/QHP 1ST HOUR NEUROPSYCHOLOGICAL TST EVAL PHYS/QHP 1ST HOUR NEUROPSYCHOLOGICAL TST EVAL PHYS/QHP EA ADDL HR PSYL/NRPSYCL TST PHYS/QHP 2+ TST 1ST 30 MIN PSYCL/NRPSYCL TST PHYS/QHP 2+ TST EA ADDL 30 MIN Margot Bravo MD [address] [facility] [place] [address] Psyc [facility] [address] [place] [address] Referral ID Status Reason Start Date Expiration Date V isits Requested Visits Authorized [id number] Authorized 06/01/2022 08/29/2022 3 3 Reason Comments New Patient Evaluation Reason Onset Date Comments Refill Request 06/13/2022 Reason Comments PAP Therapy Follow Up 30 day download re quested by provider Reason Comments New Patient Evaluation Cardiac Clearance Back surgery Reason Comments Pre-Op Exam Reason Comments CMN Reason Comments Post Op Reason Comments CMN- PAP supplies [facility]/To- 06/21 Reason Onset Date Comments Refill Request 08/03/2022 Reason Comments Hospital F/U Was discharged from [facility]. Was admitted after back surgery Reason Comments [...] Simpson I, MD [address] [facility] [place] [address] [facility] [address] [facility] [place] [address] Reason Comments Recheck Blood pressure Reason Comments [...] MATERIAL Margot Bravo MD [address] [facility] [place] [address] [place] [address] Referral ID Status Reason Start Date Expiration Date V isits Requested Visits Authorized [id number] Closed Auto-Generate d Referral 03/28/2022 04/27/2023 1 1 Specialty Diagnoses / Procedures Referred By Contac t Referred To Contact MR IMAGING Diagnoses Shuffling gait Chronic bilateral low back pain without sciatica Urge incontinence Procedures MRI LUMBAR SPINE WO IVCON MRI SPINAL CANAL LUMBAR W/O CONTRAST MATERIAL Margot Bravo MD [address] [facility] [place] [address] [place] [address] Referral ID Status Reason Start Date Expiration Date V isits Requested Visits Authorized [id number] Closed Auto-Generate d Referral 03/28/2022 04/27/2023 1 1 Reason Comments Follow Up Blood pressure Care Teams (unrecognized sec tion and content) Director Payer Relationship Specialty Start Date End Date Yosef Whitaker MD [address] [place] [address] PCP - General Family Practice 10/31/13 Director Payer Relationship Specialty Start Date End Date Yosef Whitaker MD [address] [place] [address] PCP - General Family Practice 10/31/13 Director Payer Relationship Specialty Start Date End Date Yosef Whitaker MD [address] [place] [address] PCP - General Family Practice 10/31/13 Director Payer Relationship Specialty Start Date End Date Yosef Whitaker MD [address] [place] [address] PCP - General Family Practice 10/31/13 Director Payer Relationship Specialty Start Date End Date Yosef Whitaker MD [address] [place] [address] PCP - General Family Practice 10/31/13 Director Payer Relationship Specialty Start Date End Date Yosef Whitaker MD [address] [facility] [place] [address] PCP - General Family Practice 10/31/13 Director Payer Relationship Specialty Start Date End Date Yosef Whitaker MD [address] [facility] [place] [address] PCP - General Family Practice 10/31/13 Director Payer Relationship Specialty Start Date End Date Yosef Whitaker MD [facility] [place] [address] PCP - General Family Practice 10/31/13 Director Payer Relationship Specialty Start Date End Date Yosef Whitaker MD [address] [place] [address], [place] [address] PCP - General Family Practice 10/31/13 Director Payer Relationship Specialty Start Date End Date Yosef Whitaker MD [address] [place] [address], [place] [address] PCP - General Family Practice 10/31/13 Director Payer Relationship Specialty Start Date End Date Yosef Whitaker MD [facility] [place] [address] PCP - General Family Practice 10/31/13 Director Payer Relationship Specialty Start Date End Date Yosef Whitaker MD [facility] [place] [address] PCP - General Family Practice 10/31/13 Director Payer Relationship Specialty Start Date End Date Yosef Whitaker MD [address] [place] [address], [place] [address] PCP - General Family Medicine 10/31/13 Director Payer Relationship Specialty Start Date End Date Yosef Whitaker MD [address] [place] [address], [place] [address] PCP - General Family Medicine 10/31/13 Director Payer Relationship Specialty Start Date End Date Yosef Whitaker MD [address] [facility] [place] [address] PCP - General Family Medicine 10/31/13 Director Payer Relationship Specialty Start Date End Date Yosef Whitaker MD [address] [facility] [place] [address] PCP - General Family Medicine 10/31/13 Director Payer Relationship Specialty Start Date End Date Yosef Whitaker MD [address] [place] [address], [place] [address] PCP - General Family Medicine 10/31/13 Director Payer Relationship Specialty Start Date End Date Yosef Whitaker MD [address] [place] [address], [place] [address] PCP - General Family Medicine 10/31/13 Director Payer Relationship Specialty Start Date End Date Yosef Whitaker MD [facility] [place] [address] PCP - General Family Medicine 10/31/13 Director Payer Relationship Specialty Start Date End Date Yosef Whitaker MD [facility] [place] [address] PCP - General Family Medicine 10/31/13 Director Payer Relationship Specialty Start Date End Date Yosef Whitaker MD [facility] [place] [address] PCP - General Family Medicine 10/31/13 Director Payer Relationship Specialty Start Date End Date Yosef Whitaker MD [facility] [place] [address] PCP - General Family Medicine 10/31/13 Director Payer Relationship Specialty Start Date End Date Yosef Whitaker MD [address] [place] [address], [place] [address] PCP - General Family Medicine 10/31/13 Director Payer Relationship Specialty Start Date End Date Yosef Whitaker MD [address] [facility] [place] [address] PCP - General Family Medicine 10/31/13 Director Payer Relationship Specialty Start Date End Date Yosef Whitaker MD [address] [facility] [place] [address] PCP - General Family Medicine 10/31/13 Director Payer Relationship Specialty Start Date End Date Yosef Whitaker MD [address] [facility] [place] [address] PCP - General Family Medicine 10/31/13 Mary Do, RN PATIENT SERVICES.WATER 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 [address] [place] [address] Gerontology 06/18/22 Director Payer Relationship Specialty Start Date End Date Yosef Whitaker MD [address] [facility] [place] [address] PCP - General Family Medicine 10/31/13 Mary Do, RN PATIENT SERVICES.WATER 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 [address] [facility] [place] [address] Gerontology 06/18/22 Director Payer Relationship Specialty Start Date End Date Yosef Whitaker MD [address] [facility] [place] [address] PCP - General Family Medicine 10/31/13 Mary Do, RN PATIENT SERVICES.WATER 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 [address] [facility] [place] [address] Gerontology 06/18/22 Director Payer Relationship Specialty Start Date End Date Yosef Whitaker MD [address] [facility] [place] [address] PCP - General Family Medicine 10/31/13 Mary Do, RN PATIENT SERVICES.WATER 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 [address] [place] [address] Gerontology 06/18/22 [place] [address] [place] [address], [facility] [place] [address] [place] [address] Cardiology 06/27/22 Director Payer Relationship Specialty Start Date End Date Yosef Whitaker MD [address] [place] [address] PCP - General Family Medicine 10/31/13 Mary Do, RN PATIENT SERVICES.WATER 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 [address] [place] [address] Gerontology 06/18/22 Kim Alonzo MD [address] [place] [address], [address], [place] [address] Cardiology 06/27/22 Director Payer Relationship Specialty Start Date End Date Yosef Whitaker MD [address] [place] [address] PCP - General Family Medicine 10/31/13 Mary Do, RN PATIENT SERVICES.WATER 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 [address] [place] [address] Gerontology 06/18/22 Kim Alonzo MD [address] [place] [address], [facility] [address] [place] [address] Cardiology 06/27/22 Director Payer Relationship Specialty Start Date End Date Yosef Whitaker MD [address] [place] [address] PCP - General Family Medicine 10/31/13 DoMary burton, RN PATIENT SERVICES.WATER 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 [address] [facility] [place] [address] Gerontology 06/18/22 Kim Alonzo MD [address], [address] [place] [address] Cardiology 06/27/22 Director Payer Relationship Specialty Start Date End Date Yosef Whitaker MD [address] [place] [address] PCP - General Family Medicine 10/31/13 DoMary burton, RN PATIENT SERVICES.WATER 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 [address] [place] [address] Gerontology 06/18/22 Kim Alonzo MD [address] [facility], [address] [place], [place] [address] Cardiology 06/27/22 Director Payer Relationship Specialty Start Date End Date Yosef Whitaker MD [address] [facility] [place] [address] PCP - General Family Medicine 10/31/13 DoMary sánchez, RN PATIENT SERVICES.WATER 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 [address] [place] [address] Gerontology 06/18/22 Kim Alonzo MD [address], [address] [place] [address] Cardiology 06/27/22 Director Payer Relationship Specialty Start Date End Date Yosef Whitaker MD [address] [place] [address] PCP - General Family Medicine 10/31/13 Mary Do, RN PATIENT SERVICES.WATER 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 [address] [facility] [place] [address] Gerontology 06/18/22 Kim Alonzo MD [address], [address] [place] [address] Cardiology 06/27/22 Director Payer Relationship Specialty Start Date End Date Yosef Whitaker MD [address] [facility] [place] [address] PCP - General Family Medicine 10/31/13 Mary Do, RN PATIENT SERVICES.WATER 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 [address] [place] [address] Gerontology 06/18/22 Kim Alonzo MD [address] [facility], [address] [place] [address] Cardiology 06/27/22 Director Payer Relationship Specialty Start Date End Date Yosef Whitaker MD [address] [place] [address] PCP - General Family Medicine 10/31/13 Mary Do, RN PATIENT SERVICES.WATER 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 [address] [place] [address] Gerontology 06/18/22 iKm Alonzo MD [address] [facility], [address] [place] [address] Cardiology 06/27/22 Director Payer Relationship Specialty Start Date End Date Yosef Whitaker MD [address] [place] [address] PCP - General Family Medicine 10/31/13 Mary Do, RN PATIENT SERVICES.WATER 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 [address] [facility] [place] [address] Gerontology 06/18/22 Kim Alonzo MD [address] [place] [address], [facility] [place] [address] [place] [address] Cardiology 06/27/22 Director Payer Relationship Specialty Start Date End Date Yosef Whitaker MD [address] [facility] [place] [address] PCP - General Family Medicine 10/31/13 Mary Do, RN PATIENT SERVICES.WATER 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 [address] [facility] [place] [address] Gerontology 06/18/22 Kim Alonzo MD [address] [place] [address], [address] [place] [address] Cardiology 06/27/22 Director Payer Relationship Specialty Start Date End Date Yosef Whitaker MD [address] [facility] [place] [address] PCP - General Family Medicine 10/31/13 Mary Do, RN PATIENT SERVICES.WATER 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 [address] [facility] [place] [address] Gerontology 06/18/22 Kim Alonzo MD [address] [place] [address], [address] [place] [address] Cardiology 06/27/22 Director Payer Relationship Specialty Start Date End Date Yosef Whitaker MD [address] [facility] [place] [address] PCP - General Family Medicine 10/31/13 Mary Do, RN PATIENT SERVICES.WATER 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 [address] [facility] [place] [address] Gerontology 06/18/22 Kim Alonzo MD [address] [place] [address], [place] [address] [place] [address] Cardiology 06/27/22 Director Payer Relationship Specialty Start Date End Date Yosef Whitaker MD [address] [facility] [place] [address] PCP - General Family Medicine 10/31/13 DoMary sánchez, RN PATIENT SERVICES.WATER 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 [address] [facility] [place] [address] Gerontology 06/18/22 Kim Alonzo MD [address] [place] [address], [address] [place] [address] Cardiology 06/27/22 Director Payer Relationship Specialty Start Date End Date Yosef Whitaker MD [address] [facility] [place] [address] PCP - General Family Medicine 10/31/13 Mary Do, RN PATIENT SERVICES.WATER 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 [address] [facility] [place] [address] Gerontology 06/18/22 Kim Alonzo MD [address] [place] [address], [address] [place] [address] Cardiology 06/27/22 Director Payer Relationship Specialty Start Date End Date Yosef Whitaker MD [address] [facility] [place] [address] PCP - General Family Medicine 10/31/13 Mary Do, RN PATIENT SERVICES.WATER 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 [address] [facility] [place] [address] Gerontology 06/18/22 Kim Alonzo MD [address], [address] [place] [address] Cardiology 06/27/22 Director Payer Relationship Specialty Start Date End Date Yosef Whitaker MD [address] [facility] [place] [address] PCP - General Family Medicine 10/31/13 Mary Do, RN PATIENT SERVICES.WATER 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 [address] [place] [address] Gerontology 06/18/22 [place] [address] [place] [address], [facility] [place] [address] [place] [address] Cardiology 06/27/22 Director Payer Relationship Specialty Start Date End Date Yosef Whitaker MD [address] [place] [address] PCP - General Family Medicine 10/31/13 Mary Do, RN PATIENT SERVICES.WATER 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 [address] [facility] [place] [address] Gerontology 06/18/22 Kim Alonzo MD [address] [facility], [facility] [place] [address] [place] [address] Cardiology 06/27/22 Director Payer Relationship Specialty Start Date End Date Yosef Whitaker MD [address] [facility] [place] [address] PCP - General Family Medicine 10/31/13 Mary Do, RN PATIENT SERVICES.WATER 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 [address] [facility] [place] [address] Gerontology 06/18/22 Kim Alonzo MD [address] [facility], [facility] [place] [address] [place] [address] Cardiology 06/27/22 Director Payer Relationship Specialty Start Date End Date Yosef Whitaker MD [address] [facility] [place] [address] PCP - General Family Medicine 10/31/13 Mary Do, RN PATIENT SERVICES.WATER 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 [address] [facility] [place] [address] Gerontology 06/18/22 [place] [address] [place] [address], [facility] [place] [address] [place] [address] Cardiology 06/27/22 Director Payer Relationship Specialty Start Date End Date Yosef Whitaker MD [address] [facility] [place] [address] PCP - General Family Medicine 10/31/13 Mary Do, RN PATIENT SERVICES.WATER 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 [address] [facility] [place] [address] Gerontology 06/18/22 [place] [address] [place] [address], [facility] [place] [address] [place] [address] Cardiology 06/27/22 Director Payer Relationship Specialty Start Date End Date Yosef Whitaker MD [address] [facility] [place] [address] PCP - General Family Medicine 10/31/13 Mary Do, RN PATIENT SERVICES.WATER 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 [address] [facility] [place] [address] Gerontology 06/18/22 Kim Alonzo MD [address] [place] [address], [address] [phone] Cardiology 06/27/22 Director Payer Relationship Specialty Start Date End Date Yosef Whitaker MD [address] [place], [place] [address]84[address] PCP - General Family Medicine 10/31/13 Mary Do, RN PATIENT SERVICES.WATER 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 [address] [place] [address] Gerontology 06/18/22 Kim Alonzo MD [address] [place] [address], [address] [phone] Cardiology 06/27/22 Director Payer Relationship Specialty Start Date End Date Yosef Whitaker MD [address] [place] [address] PCP - General Family Medicine 10/31/13 Mary Do, RN PATIENT SERVICES.WATER 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 [address] [place] [address] Gerontology 06/18/22 Kim Alonzo MD [address] [place] [address], [address] [phone] Cardiology 06/27/22 Director Payer Relationship Specialty Start Date End Date Yosef Whitaker MD [address] [place], [place] [id number] PCP - General Family Medicine 10/31/13 Mary Do, RN PATIENT SERVICES.WATER 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 [address] [place] [address] Gerontology 06/18/22 Kim Alonzo MD [address] [place] [address], [address] [phone] Cardiology 06/27/22 Director Payer Relationship Specialty Start Date End Date Yosef Whitaker MD [address] [place] [address] PCP - General Family Medicine 10/31/13 Mary Do APRN.WATER 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 [address] [place] [address] Gerontology 06/18/22 Kim Alonzo MD [address] [place] [address], [address] [phone] Cardiology 06/27/22 Director Payer Relationship Specialty Start Date End Date Yosef Whitaker MD [address] [place], [place] [address]83[address] PCP - General Family Medicine 10/31/13 Mary Do, RN PATIENT SERVICES.WATER 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 [address] [place] [address] Gerontology 06/18/22 Kim Alonzo MD [address] [place] [address], [address] [phone] Cardiology 06/27/22 Director Payer Relationship Specialty Start Date End Date Yosef Whitaker MD [address] [place] [address] PCP - General Family Medicine 10/31/13 DoMary burton, RN PATIENT SERVICES.WATER 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 [address] [place] [address] Gerontology 06/18/22 Kim Alonzo MD [address] [place] [address], [facility] [place] [address] [place], [place] [phone] Cardiology 06/27/22 Director Payer Relationship Specialty Start Date End Date Yosef Whitaker MD [address] [place], [place] [address] PCP - General Family Medicine 10/31/13 DoMary burton, RN PATIENT SERVICES.WATER 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 [address] [place], [place] 8[address] Gerontology 06/18/22 Kim Alonzo MD [address] [place] [address], [address] [phone] Cardiology 06/27/22 Director Payer Relationship Specialty Start Date End Date Yosef Whitaker MD [address] [place], [place] [id number] PCP - General Family Medicine 10/31/13 CanovanasMary, RN PATIENT SERVICES.WATER 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 [address] [place], [place] [address]301 Gerontology 06/18/22 Kim Alonzo MD [address] [place] [address], [facility] [place] [address] [place], [place] [phone] Cardiology 06/27/22 Director Payer Relationship Specialty Start Date End Date Yosef Whitaker MD [address] [place], [place] 105141 PCP - General Family Medicine 10/31/13 Mary Do, RN PATIENT SERVICES.WATER 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 [address] [place] [address] Gerontology 06/18/22 Kim Alonzo MD [address] [place] [address] [phone] Cardiology 06/27/22 Director Payer Relationship Specialty Start Date End Date Yosef Whitaker MD [address] [place] [address] PCP - General Family Medicine 10/31/13 Mary Do, RN PATIENT SERVICES.WATER 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 [address] [place] [address] Gerontology 06/18/22 Kim Alonzo MD [address] [place] [phone] Cardiology 06/27/22 Director Payer Relationship Specialty Start Date End Date Yosef Whitaker MD [address] [place] [address] PCP - General Family Medicine 10/31/13 Mary Do, RN PATIENT SERVICES.WATER 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 [address] [place] [address] Gerontology 06/18/22 Kim Alonzo MD [address] [place] [id number] Cardiology 06/27/22 Director Payer Relationship Specialty Start Date End Date Yosef Whitaker MD [address] [place], [place] 477791 PCP - General Family Medicine 10/31/13 Director Payer Relationship Specialty Start Date End Date Yosef Whitaker MD [address] [place], [place] 154001 PCP - General Family Medicine 10/31/13 Director Payer Relationship Specialty Start Date End Date Yosef Whitaker MD [address] [place], [place] [id number] PCP - General Family Medicine 10/31/13 Mary Do APRN.WATER 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 [address] [place] [address] Gerontology 06/18/22 Kim Alonzo MD [address] [place] [address] [phone] Cardiology 06/27/22 (unrecognized sect ion and content) No Status Records FoundNo Status Records FoundNo Status Records Found INFORMATION SOURCE (unrecogn ized section and content) DATE CREATED AUTHOR AUTHOR'S ORGANIZ ATION 02/15/2023 [facility] DATE CREATED AUTHOR AUTHOR'S ORGANIZ ATION 05/26/2023 [facility] FOR RECORDS PERTAINING TO PATIENTS WHO ARE [...] BE BASED ON THE PRIMARY CLINICAL RECORDS. [facility] [employer] [facility]. provides no warranty or guarantee of the accuracy or completeness of information in this document.
[2023-05-27 13:13] LABS: PSA,Total - Annual Screen 2.26 ng/mL (0.00-4.00)
== END | disposition home or self-care (01) ==
LOC: LAB 11:58
PROVIDERS: PCP Family Medicine; Visit Provider Nurse Practitioner
DX: Z12.5 Encounter for screening for malignant neoplasm of prostate (principal)
CPT/HCPCS: 36415; 84153; G0103

== ENCOUNTER → 2023-07-12 | Outpatient (CLI) | payer MEDICARE, SELFPAY ==
--- NOTE | 2023-07-12 09:43 | RAD_ITS ---
STUDY: X-RAY - ESOPHAGUS (BARIUM SWALLOW) WITH FLUOROSCOPY REASON FOR EXAM: Male, 78 years old. DYSPHAGIA TECHNIQUE: 24 view(s) of the esophagus were obtained following swallowing of barium. FLUOROSCOPY TIME (if supplied): (45 seconds) minutes/seconds. 28.9 mGy. COMPARISON: None. FINDINGS: There is no demonstrated esophageal foreign body. Narrowing of the distal portion of the esophagus at the level of the gastroesophageal junction. The patient ingested a 12 mm tablet at bedtime. The tablet is trapped at the gastroesophageal junction. Endoscopic correlation recommended. Normal visualized aortic arch and descending thoracic aorta. Normal visualized pulmonary parenchyma. There are diffuse degenerative changes of the visualized thoracic spine. RAD/Esophagus Single Contrast IMPRESSION: Narrowing of the distal esophagus at the gastroesophageal junction with trapping of the 12 mm tablet of barium. Endoscopic correlation recommended. Electronically Signed: Babar Oliva MD at 13:59 EDT ,
== END | disposition home or self-care (01) ==
PROVIDERS: PCP Family Medicine; Referring Provider Internal Medicine Gastroenterology; Visit Provider Internal Medicine Gastroenterology
DX: R13.10 Dysphagia, unspecified (principal)
CPT/HCPCS: 74220

== ENCOUNTER → 2025-04-09 | Outpatient (CLI) | payer MEDICARE, SELFPAY ==
--- NOTE | 2025-04-09 09:40 | US_ITS ---
PROCEDURE: ABD LIMITED W/ ELASTOGRAPHY, 04/09/2025 REASON FOR EXAM: NONALCOHOLIC STEATOHEPATITS COMPARISON: None TECHNIQUE: Grayscale and color Doppler imaging of the right upper quadrant was performed. Elastography was performed for non-invasive assessment of liver tissue stiffness utilizing a Flowgram S-shear wave imaging unit. FINDINGS: Liver: Echogenic. 17.7 cm in length. Gallbladder: Cholecystectomy. Biliary tree: Unremarkable. CBD measures 5 mm. Pancreas: Largely obscured by shadowing bowel gas. Right kidney: Unremarkable. 8.9 cm in length. Other: No visualized free fluid. Hepatic elastography: Number of measurements: 6. US probe: CA1-7A. EQI median: 4.3 kPa EQI median velocity: 1.18 m/s IQR/Med: 22.9% (kPa) and 11.2% (m/s). If the IQR/Med is IQR/median >30% (for kPa) or >15% in m/s, the variance in the measurements is a large and the accuracy of the measurement may be in question. US/ABD Limited w/ Elastography IMPRESSION: 1. Grayscale apperance of the liver which is most frequently suggestive of hepa tocellular disease such as steatosis. Correlate for clinical and laboratory evidence of chronic liver disease. 2. Liver stiffness is 4.3 kPa. Per the below 2020 SRU criteria, this indicates a high probability of being normal. 3. Additional description as above. Assessment is per the Update to the SRU Liver Elastography Consensus Statement (2020) Note that the above assessment of liver fibrosis is vendor-neutral and intended for use in fibrosis related to viral etiologies and non-alcoholic fatty-liver disease (NAFLD); in causes other than viral hepat itis and NAFLD, the cutoff values are currently not well established. In some patients with NAFLD, the cutoff values for cACLD may be lower (7-9 kPa). Note also that in the setting of elevated LFTs, nonfasting or vascular congestion, the stage of lifer fibrosis may be overestimated. Previous SRU reference values: <1.37 m/s (5.7kPa): No to mild fibrosis 1.37 m/s - 2.2 m/s: Moderate to severe fibrosis >2.2 m/s (15kPa): Significant fibrosis / cirrhosis Reading Location: [id number]
== END | disposition home or self-care (01) ==
PROVIDERS: PCP Family Medicine; Referring Provider Family Medicine; Visit Provider Family Medicine
DX: K75.81 Nonalcoholic steatohepatitis (NASH) (principal)
CPT/HCPCS: 76705; 76981